=== PATIENT | male | born 1940 | race Caucasian/White ===

== ENCOUNTER 2016-06-07 12:43 | Emergency (ER) | payer OTHER, MEDICARE ==
[~2016-06-07] VITALS: Ht 175.3 cm; Wt 105.0 kg
[~2016-06-07 12:43] MED LIST: ALBUAER INH; ATOR-24 PO; DOCU100C31 PO; FIBER PO; GABA-113 PO; INSPMPHMLG SQ; LACT10SO30 PO; TRAM-10 PO
[2016-06-07 12:53] VITALS: TEMP 37.2; Ht 175.3 cm; Wt 105.0 kg
[2016-06-07] MEDS ORDERED: METR-163 PO (13:24)
[2016-06-07] MEDS ORDERED: SODIUM CHLORIDE 0.9% 1000ML 1,000 ML IV STA (14:06)
[2016-06-07 14:13] LABS: HEMATOCRIT 34.3 % (42-52); MEAN CELL VOLUME 89.1 fL (80-100); MEAN CORPUSCULAR HEMOGLOBIN 30.9 pg (25-34); MEAN CORPUSCULAR HGB CONC 34.7 g/dl (32-36); RED BLOOD COUNT 3.85 M/uL (4.7-6.1); WHITE BLOOD COUNT 7.35 K/uL (4.8-10.8)
[2016-06-07 14:24] LABS: BUN/CREATININE RATIO 18.2 (10-20); CALCIUM 9.3 mg/dl (8.5-10.1); CREATININE 1.3 mg/dl (0.60-1.40); POTASSIUM 3.9 mmol/L (3.5-5.1)
[2016-06-07 14:54] LABS: URINE APPEARANCE CLEAR (CLEAR); URINE COLOR DK YELLOW; URINE NITRITE NEG (NEG); UROBILINOGEN NEG (NEG)
[2016-06-07 15:25] LABS: MEAN PLATELET VOLUME 10.6 fL (7.4-10.4); PLATELET COUNT 95 K/uL (130-400)
[2016-06-07 15:29] LABS: BASO % 0.7 %; BASO ABS # 0.05 K/uL (0-0.2); COMPLETE YES; EOS % 8.3 %; IG% 0.1 %; LYMPH % 16.6 %; LYMPH ABS # 1.22 K/uL (1.2-3.4); MONO % 11.6 %; NEUT % 62.7 %; PLT ESTIMATE DECREASED
[2016-06-07 15:30] LABS: MANUAL MICROSCOPIC REQUIRED? YES; REVIEW REQ? NO; URINE BILIRUBIN NEG (NEG)
[2016-06-07 15:31] LABS: URINE BACTERIA 1+ (NEG); URINE MUCUS PRESENT (NONE PRSENT); URINE RBC 0-4 /hpf (0-4)
[2016-06-07 15:32] LABS: ZZURINE CULT IF INDIC CATH YES
--- NOTE | 2016-06-07 16:52 | EMERGENCY ROOM VISIT NOTE ---
History Report prepared by Mary: Eileen Wynne Under the Supervision of: Dr. Aime Sullivan D.O. First contact with patient: 13:47 Chief Complaint: URINARY SYMPTOMS Stated Complaint: UNABLE TO VOID, DIARRHEA Nursing Triage Summary: Pt has diverticulitis and CDiff. Currently on flagyl, started last night. States he has not peed since yesterday. Feels pressure and bloating. History of Present Illness The patient is a 75 year old male who presents to the Emergency Room with complaints of persistent diarrhea that began this past Monday. He currently rates his discomfort as a 7/10 in severity and states that he goes between 10- 11 times per day. Per the patient's family, the patient had hernia surgery in [place] in March. She states that the patient then developed c-diff and was placed on antibiotics. The patient's family notes that the patient's diarrhea improved and was feeling better last week. The patient states that Monday his diarrhea returned. He states that he saw his PCP and was sent to [facility] for a stool sample. The patient states that he was called and informed that he had developed c-diff again. He states that he was placed on Flagyl for his c-diff. The patient states that two weeks ago was the last time he finished his last antibiotic course. He additionally notes that he has been having difficulty urinating. The patient states that he drank 3 24 ounce bottles of water yesterday and has not urinated. He additionally notes a 10 pound weight loss this past week. The patient additionally notes lower abdominal pain. He notes a history of a partial colectomy. Source of History: patient, family Onset: past Monday Position: other (global) Symptom Intensity: 7/10 Quality: other (diarrhea) Timing: other (persistent) Associated Symptoms: + abdominal pain Note: Associated Symptoms: 10 pound weight loss, difficulty urinating. Review of Systems See HPI for pertinent positives & negatives. A total of 10 systems reviewed and were otherwise negative. Past Medical & Surgical Medical Problems: (1) Asthma (2) Calcaneal spur (3) Carpal tunnel syndrome (4) COPD (chronic obstructive pulmonary disease) (5) CVA (cerebral vascular accident) (6) Gout (7) Hypertension (8) Liver disease (9) Right ureteral calculus Family History Cancer FHx: hemochromatosis Heart disease Hypertension Social History Smoking Status: Former Smoker Alcohol Use: none Drug Use: none Marital Status: Housing Status: lives alone Occupation Status: retired Current/Historical Medications Scheduled Albuterol (Ventolin Hfa), 2 PUFFS INH QID Allopurinol (Allopurinol), 300 MG PO QAM Aspirin (Aspirin Chewable), 81 MG PO QAM Atorvastatin (Lipitor), 40 MG PO DAILY Budesonide (Pulmicort Respules 0.5MG/2ML), 2 ML INH BID Carvedilol (Carvedilol), 6.25 MG PO BID Cinnamon (Cinnamon), 500 MG PO DAILY Fiber Laxative (Fiber Laxative), 1 TAB PO QAM Formoterol Fumarate (Perforomist), 2 ML INH PRN UD Gabapentin (Neurontin), 300 MG PO QPM Insulin Glargine (Toujeo Solostar), 1 DOSE INJ UD Insulin Human Lispro (Humalog), SQ ACHS Insulin Human Lispro (Humalog), 10 UNITS SQ QPM Levothyroxine Sodium (Synthroid), 50 MCG PO QAM Magnesium Oxide (Mag-Ox), 400 MG PO QAM Metronidazole (Flagyl), 500 MG PO TID Nitroglycerin (Nitrostat), 0.4 MG UT PRN Pantoprazole Sodium (Protonix), 40 MG PO DAILY Paroxetine (Paroxetine HCl), 10 MG PO QAM Tamsulosin Hcl (Flomax), 0.4 MG PO QAM Scheduled PRN Docusate Sodium (Docusate Sodium), 100 MG PO BID PRN for Constipation Ipratropium-Albuterol (Combivent Respimat), 1 PUFFS INH QID PRN for Shortness of Breath Lactulose (Encephalopathy) (Lactulose), 30 ML PO BID PRN for Constipation Tramadol (Ultram), 50 MG PO Q8H PRN for Pain Allergies Coded Allergies: Oxycodone (Verified Allergy, Mild, SHORTNESS OF BREATH, 06/07/16) wheezing ??? Dobutamine (Verified Allergy, Unknown, abd pain, 06/07/16) Iodinated Diagnostic Agents (Verified Allergy, Unknown, HIVES, 06/07/16) Meperidine (Verified Allergy, Unknown, ANAPHYLAXIS, 06/07/16) Perflutren (Verified Allergy, Unknown, abd pain, 06/07/16) Propylene Glycol (Verified Allergy, Unknown, abd pain, 06/07/16) Physical Exam Vital Signs Date Time Temp Pulse Resp B/P Pulse Ox O2 Delivery O2 Flow Rate FiO2 06/07/16 17:13 63 18 135/75 97 Room Air 06/07/16 14:46 63 20 131/78 97 Room Air 06/07/16 12:53 37.2 62 18 111/71 96 Room Air Physical Exam CONSTITUTIONAL/VITAL SIGNS: Reviewed / noted above. GENERAL: Non-toxic in appearance. INTEGUMENTARY: Warm, dry, and [place]. HEAD: Normocephalic. EYES: without scleral icterus or trauma. ENT/OROPHARYNX: clear and moist. LYMPHADENOPATHY/NECK: Is supple without lymphadenopathy or meningismus. RESPIRATORY: Lungs clear and equal. CARDIOVASCULAR: Regular rate and rhythm. GI/ABDOMEN: Soft and nontender. No organomegaly or pulsatile mass. No rebound or guarding. Normal bowel sounds. EXTREMITIES: Warm and well perfused. BACK: No CVA tenderness. NEUROLOGICAL: Intact without focal deficits. PSYCHIATRIC: normal affect. MUSCULOSKELETAL: Normally developed with good muscle tone. Medical Decision & Procedures Laboratory Results 06/07/16 13:53 Red Blood Count 3.85, Mean Corpuscular Volume 89.1, Mean Corpuscular Hemoglobin 30.9, Mean Corpuscular Hemoglobin Concent 34.7, Mean Platelet Volume 10.6, Neutrophils (%) (Auto) 62.7, Lymphocytes (%) (Auto) 16.6, Monocytes (%) (Auto) 11.6, Eosinophils (%) (Auto) 8.3, Basophils (%) (Auto) 0.7, Neutrophils # (Auto ) 4.61, Lymphocytes # (Auto) 1.22, Monocytes # (Auto) 0.85, Eosinophils # (Auto ) 0.61, Basophils # (Auto) 0.05 06/07/16 13:53 Test 06/07/16 13:45 06/07/16 13:53 Urine Color DK YELLOW Urine Appearance CLEAR (CLEAR) Urine pH 5.0 (4.5-7.5) Urine Specific [place] 1.020 (1.000-1.030) Urine Protein NEG (NEG) Urine Glucose (UA) NEG (NEG) Urine Ketones TRACE (NEG) Urine Occult Blood NEG (NEG) Urine Nitrite NEG (NEG) Urine Bilirubin NEG (NEG) Urine Urobilinogen NEG (NEG) Urine Leukocyte Esterase SMALL (NEG) Urine WBC (Auto) /hpf (0-5) Urine RBC (Auto) /hpf (0-4) Urine Hyaline Casts (Auto) /lpf (0-5) Urine Epithelial Cells (Auto) /lpf (0-5) Urine Bacteria (Auto) (NEG) Urine RBC 0-4 /hpf (0-4) Urine WBC 5-10 /hpf (0-5) Urine Epithelial Cells 0-5 /lpf (0-5) Urine Bacteria 1+ (NEG) Urine Hyaline Casts 1-5 /lpf (0-5) Urine Mucus PRESENT (NONE PRSENT) White Blood Count 7.35 K/uL (4.8-10.8) Red Blood Count 3.85 M/uL (4.7-6.1) Hemoglobin 11.9 g/dL (14.0-18.0) Hematocrit 34.3 % (42-52) Mean Corpuscular Volume 89.1 fL (80-100) Mean Corpuscular Hemoglobin 30.9 pg (25-34) Mean Corpuscular Hemoglobin Concent 34.7 g/dl (32-36) Platelet Count 95 K/uL (130-400) Mean Platelet Volume 10.6 fL (7.4-10.4) Neutrophils (%) (Auto) 62.7 % Lymphocytes (%) (Auto) 16.6 % Monocytes (%) (Auto) 11.6 % Eosinophils (%) (Auto) 8.3 % Basophils (%) (Auto) 0.7 % Neutrophils # (Auto) 4.61 K/uL (1.4-6.5) Lymphocytes # (Auto) 1.22 K/uL (1.2-3.4) Monocytes # (Auto) 0.85 K/uL (0.11-0.59) Eosinophils # (Auto) 0.61 K/uL (0-0.5) Basophils # (Auto) 0.05 K/uL (0-0.2) RDW Standard Deviation 49.5 fL (36.4-46.3) RDW Coefficient of Variation 15.2 % (11.5-14.5) Immature Granulocyte % (Auto) 0.1 % Immature Granulocyte # (Auto) 0.01 K/uL (0.00-0.02) Platelet Estimate DECREASED Red Blood Cell Morphology Unremarkable Anion Gap 9.0 mmol/L (3-11) Est Creatinine Clear Calc Drug Dose 59.5 ml/min Estimated GFR () 62.3 Estimated GFR (Non- 53.8 BUN/Creatinine Ratio 18.2 (10-20) Calcium Level 9.3 mg/dl (8.5-10.1) Total Bilirubin 1.1 mg/dl (0.2-1) Aspartate Amino Transf (AST/SGOT) 16 U/L (15-37) Alanine Aminotransferase (ALT/SGPT) 19 U/L (12-78) Alkaline Phosphatase 57 U/L (45-117) Total Protein 6.7 gm/dl (6.4-8.2) Albumin 3.3 gm/dl (3.4-5.0) Globulin 3.4 gm/dl (2.5-4.0) Albumin/Globulin Ratio 1.0 (0.9-2) Lipase 103 U/L (73-393) Date/Time Source Procedure Growth Status 06/07/16 15:20 Stool C.difficile Toxin B Gene (PCR) - Final Positive for C. difficile toxin B gene Complete Laboratory results as stated above per my review. Medications Administered Medications (Trade) Dose Ordered Sig/Ronna Route Start Time Stop Time Status Last Admin Dose Admin Sodium Chloride (Nss 1000ml) 1,000 ml @ 999 mls/hr Q1H1M STAT IV 06/07/16 14:06 06/07/16 15:06 DC 06/07/16 14:45 999 MLS/HR ED Course 1401: Previous medical records were reviewed. The patient was evaluated in room B6. A complete history and physical examination was performed. 1406: Ordered Sodium Chloride 1000 ml @ 999 mls/hr IV. 1652: I reevaluated the patient and he is resting comfortably. I discussed the exam findings with him and I discussed the treatment plan. He verbalized complete understanding and agreement. He is ready to go home. Medical Decision Differential includes acute coronary syndrome, myocardial infarction, CVA, TIA, anemia, infection, pneumonia, UTI, pyelonephritis, poor nutrition, dehydration, electrolyte disturbance,hypoglycemia. This is a 75-year-old male who presents to the ED with a chief complaint of decreased urine output. The patient reports history of C. difficile that was treated and improved but over the past week he has been having increasing diarrhea. His president [place] put him on Flagyl yesterday. The patient reported some decreased urine output today and came to the ED for hydration. His vital signs here were normal. His exam did not reveal any abdominal tenderness. CBC is unremarkable. The BUN is 24. Urine revealed trace ketones. The patient was hydrated with IV fluids. The patient was told the results of the tests. He was felt to be stable for discharge. He will continue his Flagyl. Impression Primary Impression: Dehydration Additional Impression: C. difficile diarrhea Scribe Attestation The scribe's documentation has been prepared under my direction and personally reviewed by me in its entirety. I confirm that the note above accurately reflects all work, treatment, procedures, and medical decision making performed by me. Departure Information Dispostion Home / Self-Care Referrals Domo Alanis D.O. (PCP) Forms HOME CARE DOCUMENTATION FORM, IMPORTANT VISIT INFORMATION Patient Instructions My [facility] Additional Instructions Continue your Flagyl. Follow-up with your doctor for further care and evaluation in 1-2 days. Return to the emergency department for worsening or new symptoms or any concerns. You have been examined and treated today on an emergency basis only. This is not a substitute for, or an effort to provide, complete comprehensive medical care. It is impossible to recognize and treat all injuries or illnesses in a single emergency department visit. It is therefore important that you follow up closely with your doctor. Call as soon as possible for an appointment. Problem Qualifiers
[2016-06-07 17:13] VITALS: BP 135/75; PULSE 63; O2SAT 97
--- NOTE | 2016-06-09 17:28 | Pharmacy Progress Note ---
ED Pharmacist Culture FollowUp Date of Service: Jun 09, 2016. Called patient regarding urine culture. Patient notes that he is still experiencing some urinary hesitancy / inability to easily establish flow. Prescription for Bactrim DS 1 tab po BID x7 days called to [facility] at the patient's request. Counseled to discuss length of therapy with his outpatient provider 2nd ?prostatitis. Patient noted he has an appointment on Monday. Case discussed with Dr. Winters, who is the prescribing provider.
[2016-06-27] MEDS ORDERED: CINN1CAP2 PO (08:44)
[2016-06-27] MEDS ORDERED: INSU1.2I INJ (13:06)
[2016-06-27] MEDS ORDERED: MAGN400T6 PO (13:06)
[2016-06-27] MEDS ORDERED: PRVHFAIN INH (13:24)
[2016-06-27] MEDS ORDERED: TRAM-10 PO (13:24)
[2016-06-27] MEDS ORDERED: LEVO50TA PO (13:30)
[2016-06-27] MEDS ORDERED: ASPCH81X PO (13:30)
[2016-06-27] MEDS ORDERED: IPRA1AER2 INH (13:30)
[2016-06-27] MEDS ORDERED: ALL300 PO (13:30)
[2016-09-06] MEDS ORDERED: ATOR-24 PO (23:01)
[2016-09-06] MEDS ORDERED: MECL1TAB42 PO (23:01)
[2016-12-26] MEDS ORDERED: ASPI81TA28 PO (09:31)
[2016-12-26] MEDS ORDERED: VITAMIN B12 INJ (09:31)
[2016-12-26] MEDS ORDERED: LACT10SO17 PO (09:31)
[2016-12-26] MEDS ORDERED: CARV3.12 PO (09:31)
[2016-12-26] MEDS ORDERED: THIA100T46 PO (09:35)
[2016-12-26] MEDS ORDERED: CALC625T13 PO (09:36)
[2016-12-26] MEDS ORDERED: CHOL1CAP57 PO (09:37)
[2017-01-09] MEDS ORDERED: HYDR-3419 PO (09:54)
[2017-01-09] MEDS ORDERED: PHEN-775 PO (09:54)
[2017-01-09] MEDS ORDERED: CIPR-255 PO (09:54)
== END 2016-06-07 17:16 | disposition home or self-care (01) ==
LOC: C.EDB 12:44
DX: E86.0 Dehydration (principal); A04.7 Enterocolitis due to Clostridium difficile; J44.9 Chronic obstructive pulmonary disease, unspecified; M10.9 Gout, unspecified; I10 Essential (primary) hypertension; Z88.5 Allergy status to narcotic agent; Z91.041 Radiographic dye allergy status; Z86.73 Personal history of transient ischemic attack (TIA), and cerebral infarction without residual deficits; Z87.891 Personal history of nicotine dependence; Z79.82 Long term (current) use of aspirin; Z90.49 Acquired absence of other specified parts of digestive tract; Z82.49 Family history of ischemic heart disease and other diseases of the circulatory system

== ENCOUNTER 2016-06-27 13:47 | Inpatient (IN) | payer OTHER, MEDICARE ==
[~2016-06-27] VITALS: Ht 175.3 cm; Wt 104.3 kg
[~2016-06-27 13:47] MED LIST changes: -ALBUAER INH; +ALL300 PO; +ASPCH81X PO; +CINN1CAP2 PO; +INSU1.2I INJ; +IPRA1AER2 INH; +LEVO50TA PO; +MAGN400T6 PO; +METR-163 PO; +PRVHFAIN INH
[2016-06-27] MEDS ORDERED: SODIUM CHLORIDE 0.9% 1000ML 1,000 ML IV STA (14:20)
--- NOTE | 2016-06-27 14:20 | EMERGENCY ROOM VISIT NOTE ---
History Report prepared by Mary: Floyd Kaminski Under the Supervision of: Dr. Aime Victoria M.D. First contact with patient: 14:01 Chief Complaint: ABDOMINAL PAIN Stated Complaint: PAIN IN RIGHT SIDE AND STOMACH Nursing Triage Summary: having lower abdominal pain and diarrhea for the past 5 days History of Present Illness The patient is a 75 year old male with a history of C. Diff. who presents to the Emergency Room with complaints of persistent diarrhea for the past five days. The patient's stools have contained blood. The patient has also been experiencing persistent abdominal pain for the past five days. The patient has been experiencing recurrent C. Diff. infection approximately every three weeks since April. The patient was diagnosed with C. Diff. in the ED twice, once in April and once in May. The patient was on Bactrim and Flagyl approximately three weeks ago, which he finished. The patient has also been treated with Vancomycin, as per his son. The patient was treated with Augmentin prior to his first C. Diff. diagnosis. The patient follows up with Dr. Bartlett [facility] [employer] Director. The patient has not been taking probiotics. He has a history of diverticulitis. The patient takes baby aspirin daily, but is not on any other blood thinners. Source of History: patient, family (son) Onset: five days Position: other (GI) Quality: other (diarrhea) Timing: other (persistent) Associated Symptoms: + abdominal pain, + hematochezia Review of Systems See HPI for pertinent positives & negatives. A total of 10 systems reviewed and were otherwise negative. Past Medical & Surgical Medical Problems: (1) Asthma (2) Calcaneal spur (3) Carpal tunnel syndrome (4) Clostridium difficile diarrhea (5) COPD (chronic obstructive pulmonary disease) (6) CVA (cerebral vascular accident) (7) Gout (8) Hypertension (9) Liver disease (10) Right ureteral calculus Family History Cancer FHx: hemochromatosis Heart disease Hypertension Social History Smoking Status: Never Smoker Alcohol Use: none Drug Use: none Marital Status: Housing Status: lives alone Occupation Status: retired Current/Historical Medications Scheduled Albuterol (Ventolin Hfa), 2 PUFFS INH QID Allopurinol (Allopurinol), 300 MG PO QAM Aspirin (Aspirin Chewable), 81 MG PO QAM Budesonide (Pulmicort Respules 0.5MG/2ML), 2 ML INH BID Carvedilol (Carvedilol), 6.25 MG PO BID Cinnamon (Cinnamon), 500 MG PO DAILY Formoterol Fumarate (Perforomist), 2 ML INH PRN UD Gabapentin (Neurontin), 300 MG PO HS Insulin Glargine (Toujeo Solostar), 45 UNITS INJ HS Levothyroxine Sodium (Synthroid), 50 MCG PO QAM Magnesium Oxide (Mag-Ox), 400 MG PO QAM Nitroglycerin (Nitrostat), 0.4 MG UT PRN Oxybutynin Chloride (Ditropan), 5 MG PO TID Pantoprazole Sodium (Protonix), 40 MG PO DAILY Paroxetine (Paroxetine HCl), 10 MG PO QAM Phenazopyridine HCl (Pyridium), 200 MG PO UD Pravastatin Sod (Pravastatin Sodium), 10 MG PO HS Tamsulosin Hcl (Flomax), 0.4 MG PO QAM Scheduled PRN Ipratropium-Albuterol (Combivent Respimat), 1 PUFFS INH QID PRN for Shortness of Breath Lactulose (Encephalopathy) (Lactulose), 30 ML PO BID PRN for Constipation Tramadol (Ultram), 50 MG PO Q8H PRN for Pain Miscellaneous Medications Insulin Human Lispro (Humalog), UNITS SQ Allergies Coded Allergies: Oxycodone (Verified Allergy, Mild, SHORTNESS OF BREATH, 06/27/16) wheezing ??? Dobutamine (Verified Allergy, Unknown, abd pain, 06/27/16) Iodinated Diagnostic Agents (Verified Allergy, Unknown, HIVES, 06/27/16) Meperidine (Verified Allergy, Unknown, ANAPHYLAXIS, 06/27/16) Perflutren (Verified Allergy, Unknown, abd pain, 06/27/16) Propylene Glycol (Verified Allergy, Unknown, abd pain, 06/27/16) Physical Exam Vital Signs Date Time Temp Pulse Resp B/P Pulse Ox O2 Delivery O2 Flow Rate FiO2 06/27/16 18:10 65 18 138/78 97 Room Air 06/27/16 16:11 63 18 141/81 99 Room Air 06/27/16 15:33 55 06/27/16 15:20 58 16 115/68 98 Room Air 06/27/16 13:50 36.7 63 18 127/73 97 Room Air Physical Exam GENERAL: Patient is a healthy-appearing well-nourished HEAD: Normocephalic atraumatic EYES: Ocular movements intact pupils equal and react to light OROPHARYNX mucous membranes are moist no exudates present no erythema or edema present NECK: Supple no nuchal rigidity CHEST: Good equal expansion LUNGS: Clear and equal to auscultation CARDIAC: Normal S1 and S2 ABDOMEN: Soft, no guarding, tender in the right lower quadrant. BACK: No CVA tenderness EXTREMITIES: No pain upon palpation normal muscle strength in all groups no clubbing cyanosis or edema NEURO: Patient is following commands is answering questions appropriately. Alert and oriented x3 Cranial Nerves 2-12 grossly intact Medical Decision & Procedures ER Provider Diagnostic Interpretation: CT results as stated below per my review and radiologist interpretation: CT SCAN OF THE ABDOMEN AND PELVIS WITHOUT IV CONTRAST CLINICAL HISTORY: Right lower quadrant abdominal pain. COMPARISON STUDY: Abdominal CT dated 04/27/2016. TECHNIQUE: CT scan of the abdomen and pelvis is performed from the lung bases to the proximal femora. Images are reviewed in the axial, sagittal, and coronal planes. IV contrast was not administered for this examination as per the referring clinician. Note that the examination was performed in suboptimal fashion without oral and IV contrast. Automated dose control exposure was utilized. CT DOSE: 1103.58 mGycm FINDINGS: Lung bases: The heart is enlarged and without pericardial effusion. The coronary arteries an aortic valve leaflets are densely calcified. A small hiatal hernia is noted. Emphysema is suspected. No airspace consolidation or pleural effusion is seen. Dependent atelectasis is noted. Liver: The unenhanced liver is cirrhotic in morphology and heterogeneous in attenuation. There is nodularity of the surface contour, hypertrophy of the left lobe and caudate, and widening of the fissures. There is mild intrahepatic biliary ductal dilatation, likely on a postoperative basis. Gallbladder: Surgically absent noting clips in the gallbladder fossa. Spleen: The spleen is enlarged, measuring there is recanalization of the periumbilical vein. 16.5 Cm in length. Pancreas: The unenhanced pancreas is mildly atrophic and grossly unremarkable. Adrenal glands: Unremarkable. Kidneys: The unenhanced kidneys demonstrate mild cortical atrophy and are without hydronephrosis. There is a punctate nonobstructing left calculus. There is no evidence of contour deforming renal mass lesion. A circumaortic left renal vein is incidentally noted. Abdominal vasculature: There is ectasia and advanced atherosclerotic calcification of the abdominal aorta. Bowel: There are postoperative changes from sigmoid colon resection with colocolonic anastomosis. There is moderate diverticulosis of the remaining colon without CT evidence of acute diverticulitis. There is a long segment of wall thickening with mild pericolonic inflammation seen involving the left colon. This extends from the distal transverse colon to the rectum. The appearance is consistent with a nonspecific colitis. The appendix is well-visualized and normal. Peritoneum: There is no intraperitoneal free air or abdominal ascites. Omental collateral vessels are noted in the left lower quadrant. There is evidence of previous ventral hernia repair. Lymphadenopathy: None. Pelvic viscera: The prostate gland is enlarged and heterogeneous, measuring up to 6.2 cm in transverse diameter. The bladder wall appears thickened and trabeculated, likely related to chronic outlet obstruction. There are small bilateral fat-containing inguinal hernias, left larger than right. Skeletal structures: The skeletal structures are osteopenic. No lytic or blastic lesions are seen. Mild to moderate lumbosacral spondylosis is observed. Degenerative changes are seen involving the sacroiliac joints. IMPRESSION: 1. Suboptimal examination without oral and IV contrast. 2. Findings are consistent with a nonspecific colitis involving the left colon as detailed above, likely on an infectious or inflammatory basis. 3. Cirrhotic liver morphology. 4. Splenomegaly and omental collateral vessels indicate portal hypertension. 5. There are postoperative changes from sigmoid colon resection with colocolonic anastomosis. No bowel obstruction is seen. There is moderate diverticulosis of the remaining colon without CT evidence of acute diverticulitis. 6. Cardiomegaly and suspect emphysema. 7. There is a punctate nonobstructing left renal calculus. 8. Prostatomegaly with evidence of chronic bladder outlet obstruction. 9. Additional changes as detailed above. Electronically signed by: Derrek Silva M.D. 06/27/2016 3:30 PM Dictated Date/Time: 06/27/2016 3:21 PM Laboratory Results 06/27/16 14:50 Red Blood Count 3.75, Mean Corpuscular Volume 88.8, Mean Corpuscular Hemoglobin 30.4, Mean Corpuscular Hemoglobin Concent 34.2, Mean Platelet Volume 9.3, Neutrophils (%) (Auto) 56.3, Lymphocytes (%) (Auto) 26.9, Monocytes (%) (Auto) 11.2, Eosinophils (%) (Auto) 4.7, Basophils (%) (Auto) 0.5, Neutrophils # (Auto ) 3.11, Lymphocytes # (Auto) 1.49, Monocytes # (Auto) 0.62, Eosinophils # (Auto ) 0.26, Basophils # (Auto) 0.03 06/27/16 14:50 Test 06/27/16 14:09 06/27/16 14:50 Urine Color YELLOW Urine Appearance CLEAR (CLEAR) Urine pH 5.0 (4.5-7.5) Urine Specific [place] 1.016 (1.000-1.030) Urine Protein NEG (NEG) Urine Glucose (UA) NEG (NEG) Urine Ketones NEG (NEG) Urine Occult Blood NEG (NEG) Urine Nitrite NEG (NEG) Urine Bilirubin NEG (NEG) Urine Urobilinogen NEG (NEG) Urine Leukocyte Esterase SMALL (NEG) Urine WBC (Auto) 1-5 /hpf (0-5) Urine RBC (Auto) 0-4 /hpf (0-4) Urine Hyaline Casts (Auto) 1-5 /lpf (0-5) Urine Epithelial Cells (Auto) 5-10 /lpf (0-5) Urine Bacteria (Auto) NEG (NEG) White Blood Count 5.53 K/uL (4.8-10.8) Red Blood Count 3.75 M/uL (4.7-6.1) Hemoglobin 11.4 g/dL (14.0-18.0) Hematocrit 33.3 % (42-52) Mean Corpuscular Volume 88.8 fL (80-100) Mean Corpuscular Hemoglobin 30.4 pg (25-34) Mean Corpuscular Hemoglobin Concent 34.2 g/dl (32-36) Platelet Count 95 K/uL (130-400) Mean Platelet Volume 9.3 fL (7.4-10.4) Neutrophils (%) (Auto) 56.3 % Lymphocytes (%) (Auto) 26.9 % Monocytes (%) (Auto) 11.2 % Eosinophils (%) (Auto) 4.7 % Basophils (%) (Auto) 0.5 % Neutrophils # (Auto) 3.11 K/uL (1.4-6.5) Lymphocytes # (Auto) 1.49 K/uL (1.2-3.4) Monocytes # (Auto) 0.62 K/uL (0.11-0.59) Eosinophils # (Auto) 0.26 K/uL (0-0.5) Basophils # (Auto) 0.03 K/uL (0-0.2) RDW Standard Deviation 49.5 fL (36.4-46.3) RDW Coefficient of Variation 15.3 % (11.5-14.5) Immature Granulocyte % (Auto) 0.4 % Immature Granulocyte # (Auto) 0.02 K/uL (0.00-0.02) Anion Gap 10.0 mmol/L (3-11) Est Creatinine Clear Calc Drug Dose 64.7 ml/min Estimated GFR () 68.6 Estimated GFR (Non- 59.2 BUN/Creatinine Ratio 21.8 (10-20) Calcium Level 9.5 mg/dl (8.5-10.1) Total Bilirubin 0.7 mg/dl (0.2-1) Direct Bilirubin 0.3 mg/dl (0-0.2) Aspartate Amino Transf (AST/SGOT) 20 U/L (15-37) Alanine Aminotransferase (ALT/SGPT) 22 U/L (12-78) Alkaline Phosphatase 57 U/L (45-117) Total Protein 6.3 gm/dl (6.4-8.2) Albumin 2.8 gm/dl (3.4-5.0) Lipase 145 U/L (73-393) Date/Time Source Procedure Growth Status 06/27/16 14:09 Stool C.difficile Toxin B Gene (PCR) - Final Positive for C. difficile toxin B gene Complete Labs reviewed by ED physician. Medications Administered Medications (Trade) Dose Ordered Sig/Ronna Route Start Time Stop Time Status Last Admin Dose Admin Sodium Chloride (Nss 1000ml) 1,000 ml @ 999 mls/hr Q1H1M STAT IV 06/27/16 14:20 06/27/16 15:20 DC 06/27/16 14:55 999 MLS/HR Vancomycin HCl (Vancomycin Oral Soln) 125 mg NOW STAT PO 06/27/16 15:47 06/27/16 15:51 DC 06/27/16 16:16 125 MG Raspberry (Raspberry Syrup 5ml Cup) 5 ml TODAY@1615 PO 06/27/16 16:15 06/27/16 18:00 DC 06/27/16 16:16 5 ML ED Course 1410: Past medical records reviewed. The patient was evaluated in room B5. A complete history and physical examination was performed. 1420: NSS 1000 ml @ 999 mls/hr. 1541: Checked on the patient. 1547: Vancomycin 125 mg PO. 1553: Discussed the case with Dr. Mcdermott [facility]. The patient will be evaluated. 1615: Raspberry 5 ml PO. Medical Decision Differential diagnosis: Etiologies such as appendicitis, diverticulitis, PUD, biliary pathology, UTI, pancreatitis, obstruction, mesenteric ischemia, aortic pathology, infections, inflammatory bowel disease, renal colic, as well as others were entertained. This is a 75-year-old male who presents to the emergency department complaining of abdominal pain as well as recurrent C. difficile infection. The patient is positive for C. difficile and has been on Flagyl. He is having multiple bowel movements approximately 5/h. An IV was established, patient given normal saline bolus. I did start the patient on oral vancomycin. I did discuss the case with the hospitalist service who agreed to admit the patient. Patient was in agreement with the treatment plan. Consults Time Called: 1549 Consulting Physician: Dr. Mcdermott [facility] Returned Call: [phone]: Discussed the case with Dr. Mcdermott, [facility]. The patient will be evaluated. Impression Primary Impression: C. difficile colitis Scribe Attestation The scribe's documentation has been prepared under my direction and personally reviewed by me in its entirety. I confirm that the note above accurately reflects all work, treatment, procedures, and medical decision making performed by me. Departure Information Dispostion Being Evaluated By Hospitalist Referrals Domo Alanis D.O. (PCP) Patient Instructions My [facility]
[2016-06-27 14:25] LABS: URINE APPEARANCE CLEAR (CLEAR); URINE BILIRUBIN NEG (NEG); URINE COLOR YELLOW; URINE NITRITE NEG (NEG); URINE SPECIFIC GRAVITY 1.016 (1.000-1.030); UROBILINOGEN NEG (NEG); ZZUR CULT IF INDIC CLEAN CATCH NO
[2016-06-27 14:29] LABS: MANUAL MICROSCOPIC REQUIRED? NO; REVIEW REQ? NO
[2016-06-27] MEDS ORDERED: OXYB5TAB74 PO (14:44)
[2016-06-27] MEDS ORDERED: PRVC10 PO (14:44)
[2016-06-27] MEDS ORDERED: GABA-113 PO (14:44)
[2016-06-27] MEDS ORDERED: PHEN-876 PO (14:44)
[2016-06-27] MEDS ORDERED: NTRGSL/4 UT (14:47)
[2016-06-27 15:10] LABS: HEMATOCRIT 33.3 % (42-52); MEAN CELL VOLUME 88.8 fL (80-100); MEAN CORPUSCULAR HEMOGLOBIN 30.4 pg (25-34); MEAN CORPUSCULAR HGB CONC 34.2 g/dl (32-36); RED BLOOD COUNT 3.75 M/uL (4.7-6.1); WHITE BLOOD COUNT 5.53 K/uL (4.8-10.8)
[2016-06-27 15:14] LABS: BASO % 0.5 %; BASO ABS # 0.03 K/uL (0-0.2); COMPLETE YES; EOS % 4.7 %; IG% 0.4 %; LYMPH % 26.9 %; LYMPH ABS # 1.49 K/uL (1.2-3.4); MEAN PLATELET VOLUME 9.3 fL (7.4-10.4); MONO % 11.2 %; NEUT % 56.3 %; PLATELET COUNT 95 K/uL (130-400)
[2016-06-27 15:22] LABS: BUN/CREATININE RATIO 21.8 (10-20); CALCIUM 9.5 mg/dl (8.5-10.1); CREATININE 1.2 mg/dl (0.60-1.40); POTASSIUM 3.9 mmol/L (3.5-5.1)
[2016-06-27] MEDS ORDERED: PXL/10 PO (15:24)
[2016-06-27] MEDS ORDERED: PANT40TA PO (15:24)
--- NOTE | 2016-06-27 15:32 | DIAGNOSTIC IMAGING REPORT ---
CT SCAN OF THE ABDOMEN AND PELVIS WITHOUT IV CONTRAST CLINICAL HISTORY: Right lower quadrant abdominal pain. COMPARISON STUDY: Abdominal CT dated 04/27/2016. TECHNIQUE: CT scan of the abdomen and pelvis is performed from the lung bases to the proximal femora. Images are reviewed in the axial, sagittal, and coronal planes. IV contrast was not administered for this examination as per the referring clinician. Note that the examination was performed in suboptimal fashion without oral and IV contrast. Automated dose control exposure was utilized. CT DOSE: 1103.58 mGycm FINDINGS: Lung bases: The heart is enlarged and without pericardial effusion. The coronary arteries an aortic valve leaflets are densely calcified. A small hiatal hernia is noted. Emphysema is suspected. No airspace consolidation or pleural effusion is seen. Dependent atelectasis is noted. Liver: The unenhanced liver is cirrhotic in morphology and heterogeneous in attenuation. There is nodularity of the surface contour, hypertrophy of the left lobe and caudate, and widening of the fissures. There is mild intrahepatic biliary ductal dilatation, likely on a postoperative basis. Gallbladder: Surgically absent noting clips in the gallbladder fossa. Spleen: The spleen is enlarged, measuring there is recanalization of the periumbilical vein. 16.5 Cm in length. Pancreas: The unenhanced pancreas is mildly atrophic and grossly unremarkable. Adrenal glands: Unremarkable. Kidneys: The unenhanced kidneys demonstrate mild cortical atrophy and are without hydronephrosis. There is a punctate nonobstructing left calculus. There is no evidence of contour deforming renal mass lesion. A circumaortic left renal vein is incidentally noted. Abdominal vasculature: There is ectasia and advanced atherosclerotic calcification of the abdominal aorta. Bowel: There are postoperative changes from sigmoid colon resection with colocolonic anastomosis. There is moderate diverticulosis of the remaining colon without CT evidence of acute diverticulitis. There is a long segment of wall thickening with mild pericolonic inflammation seen involving the left colon. This extends from the distal transverse colon to the rectum. The appearance is consistent with a nonspecific colitis. The appendix is well-visualized and normal. Peritoneum: There is no intraperitoneal free air or abdominal ascites. Omental collateral vessels are noted in the left lower quadrant. There is evidence of previous ventral hernia repair. Lymphadenopathy: None. Pelvic viscera: The prostate gland is enlarged and heterogeneous, measuring up to 6.2 cm in transverse diameter. The bladder wall appears thickened and trabeculated, likely related to chronic outlet obstruction. There are small bilateral fat-containing inguinal hernias, left larger than right. Skeletal structures: The skeletal structures are osteopenic. No lytic or blastic lesions are seen. Mild to moderate lumbosacral spondylosis is observed. Degenerative changes are seen involving the sacroiliac joints. IMPRESSION: 1. Suboptimal examination without oral and IV contrast. 2. Findings are consistent with a nonspecific colitis involving the left colon as detailed above, likely on an infectious or inflammatory basis. 3. Cirrhotic liver morphology. 4. Splenomegaly and omental collateral vessels indicate portal hypertension. 5. There are postoperative changes from sigmoid colon resection with colocolonic anastomosis. No bowel obstruction is seen. There is moderate diverticulosis of the remaining colon without CT evidence of acute diverticulitis. 6. Cardiomegaly and suspect emphysema. 7. There is a punctate nonobstructing left renal calculus. 8. Prostatomegaly with evidence of chronic bladder outlet obstruction. 9. Additional changes as detailed above. Electronically signed by: Derrek Silva M.D. 06/27/2016 3:30 PM Dictated Date/Time: 06/27/2016 3:21 PM
[2016-06-27] MEDS ORDERED: VANCOMYCIN HCL 125 MG/2.5ML SOLN PO STA (15:47)
[2016-06-27] MEDS ORDERED: RASPBERRY SYRUP 5 ML UDP PO SCH (16:15)
[2016-06-27] MEDS ORDERED: CRG625 PO (16:23)
[2016-06-27] MEDS ORDERED: ACETAMINOPHEN 325 MG TAB PO PRN ×2 (16:30→16:45)
[2016-06-27] MEDS ORDERED: TRAMADOL HCL 50 MG TAB PO PRN (16:30)
[2016-06-27] MEDS ORDERED: ONDANSETRON INJ 2 MG/ML 2 ML VIAL IV PRN (16:30)
[2016-06-27] MEDS ORDERED: NITROGLYCERIN 0.4 MG SL PER TAB CHARGE UT PRN (16:30)
[2016-06-27] MEDS ORDERED: ALBUT/IPRATROP 3MG/0.5MG NEB 3 ML VIAL INH PRN (16:30)
[2016-06-27] MEDS ORDERED: MAGNESIUM HYDROXIDE SUSP 30 ML UDC PO PRN (16:30)
[2016-06-27] MEDS ORDERED: PLMINSR5 INH (16:37)
[2016-06-27] MEDS ORDERED: FORM1NEB INH (16:37)
[2016-06-27] MEDS ORDERED: DEXTROSE 50% 50 ML SYR IV PRN (17:00)
[2016-06-27] MEDS ORDERED: GLUCAGON FOR INJ 1 MG VIAL SQ PRN (17:00)
[2016-06-27] MEDS ORDERED: GLUCOSE 40% GEL 15 GM TUBE PO PRN (17:00)
[2016-06-27] MEDS ORDERED: GLUCOSE 10 TABS/TUBE PO PRN (17:00)
[2016-06-27] MEDS: ALBUTEROL HFA 8 GM INHALER INH SCH ×2 (17:00→23:42)
[2016-06-27] MEDS ORDERED: INSPMPHMLG SQ (17:25)
[2016-06-27] MEDS ORDERED: TAMS0.4C38 PO (18:27)
[2016-06-27] MEDS: INSULIN ASPART 100 UNITS/ML 3 ML PEN SC SCH (21:00)
--- NOTE | 2016-06-27 21:11 | HISTORY & PHYSICAL EXAMINATION ---
DATE OF ADMISSION: 06/27/2016 CHIEF COMPLAINT: Abdominal pain. HISTORY OF PRESENT ILLNESS: This is a 75-year-old male with history of C. diff, presents to Emergency Room complaining of persistent diarrhea for the past 5 days. The patient also noticed that there was blow mild amount of blood present in his stool. The patient also has experienced persistent abdominal pain in the last 5 days, mainly located in the right lower abdomen. The patient also has been experiencing recurrent C. diff infection approximately every 3 weeks since April. He was diagnosed with C. diff in the Emergency Room twice, once in April and once in May, and he was on different combinations of antibiotic, his last one Bactrim and Flagyl approximately 3 weeks ago when he finished. He was also treated with oral vancomycin as per his son. The patient also received Augmentin just before his first C. diff diagnosis. He also is followed by Dr. Bartlett from [facility]. The patient has not been taking probiotics. He has a history of diverticulitis. REVIEW OF SYSTEMS: Negative except as above. Ten out of 14 systems were reviewed. PAST MEDICAL HISTORY: Asthma, calcaneus spur, carpal tunnel syndrome, Clostridium difficile diarrhea, COPD, CVA, gout, hypertension, liver disease, right ureteral calculus. FAMILY HISTORY: Cancer, heart disease. SOCIAL HISTORY: Does not smoke, does not drink. CURRENT MEDICINES: Albuterol 2 puffs inhaled q.i.d., allopurinol 300 mg p.o. daily, aspirin 81 mg p.o. daily, budesonide 2 mL inhaled b.i.d., carvedilol 6.25 mg p.o. b.i.d., cinnamon 500 mg p.o. daily, formoterol 2 mL inhaled p.r.n., gabapentin 300 mg p.o. at bedtime, insulin glargine -- patient stopped taking, levothyroxine 50 mcg p.o. daily, magnesium oxide 400 mg p.o. daily, nitroglycerin 0.4 mg as needed, oxybutynin 5 mg p.o. t.i.d., pantoprazole 40 mg p.o. daily, paroxetine 10 mg p.o. daily, phenazopyridine 200 mg p.o. as needed, pravastatin 10 mg p.o. at bedtime, tamsulosin 0.4 mg p.o. daily, Combivent Respimat 1 puff inhaled q.i.d. p.r.n. shortness of breath, lactulose 30 mL p.o. b.i.d. p.r.n. constipation, tramadol 50 mg p.o. q. 8 hours p.r.n. pain. The patient also stopped taking Humalog 3 weeks ago. ALLERGIES: OXYCONTIN, DOBUTAMINE, IODINATED DIAGNOSTIC AGENT, MEPERIDINE, PERFLUTREN AND PROPYLENE GLYCOL. PHYSICAL EXAMINATION: VITAL SIGNS: Temperature 36.7, pulse 63, respirations 18, blood pressure 138/78, pulse ox 97 on room air. GENERAL: Healthy appearing, well nourished. HEENT: Normocephalic, atraumatic. CHEST: Lungs clear to auscultation bilateral. No wheezes, no rhonchi. HEART: S1, S2, RRR. ABDOMEN: Soft. No guarding. Tender in the right lower quadrant. Bowel sounds present bilateral. BACK: No CVA tenderness. EXTREMITIES: No clubbing, cyanosis, edema. NEUROLOGICAL: Alert, oriented x3. Motor and sensory normal. DIAGNOSTIC INTERPRETATION: CAT scan of abdomen and pelvis without IV contrast showed suboptimal examination without oral or IV contrast, nonspecific colitis, splenomegaly, omental collateral vessels indicate portal hypertension, postoperative changes, cardiomegaly and emphysema, punctate nonobstructing left renal calculus, prostatomegaly, chronic bladder outlet obstruction. LABORATORY DATA: White count of 5.5, hemoglobin of 11.4, platelets 95. Sodium 141, potassium 3.9, chloride 108, CO2 of 23, BUN of 26, creatinine 1.2, and glucose of 135. Urinalysis normal. Albumin of 2.8. Gap of 10. Total bilirubin 0.7, calcium 9.5, lipase 145. Stool positive for C. diff toxin B gene. ASSESSMENT AND PLAN: This is a 75-year-old male who presents with recurrent Clostridium difficile. 1. Recurrent Clostridium difficile. Start the patient on oral vancomycin and also provide with normal saline for rehydration. 2. History of type 2 diabetes. All his insulin has been stopped 3 weeks ago due to losing his weight and he did not take his Lantus or aspart. We will start the patient on sliding scale and we will check his blood sugars before meals. We will check A1c. 3. History of hypertension and cerebrovascular accident. We will continue outpatient home medicines, Coreg and aspirin. 4. History of chronic obstructive pulmonary disease. Continue albuterol inhalers as needed. 5. History of benign prostatic hypertrophy. Continue oxybutynin 5 mg p.o. t.i.d. and Flomax. 6. Deep venous thrombosis and gastrointestinal prophylaxis. 7. The patient is a full code. Time spent during this admission, 50 minutes. PATRICIA
[2016-06-27] MEDS: SODIUM CHLORIDE 0.9% 1000ML 1,000 ML IV SCH (21:14)
[2016-06-27] MEDS: VANCOMYCIN HCL 125 MG/2.5ML SOLN PO SCH (21:15)
[2016-06-27] MEDS: RASPBERRY SYRUP 5 ML UDP PO SCH (21:16)
[2016-06-27] MEDS: OXYBUTYNIN CHLORIDE 5 MG TAB PO SCH (21:17)
[2016-06-27] MEDS: GABAPENTIN 300 MG CAP PO SCH (21:17)
[2016-06-27] MEDS: CARVEDILOL 6.25 MG TAB PO SCH (21:17)
[2016-06-27] MEDS: PRAVASTATIN SOD 10 MG TAB PO SCH (21:17)
[2016-06-27] MEDS: HEPARIN SOD 5000 UNIT/0.5 ML CARP SQ SCH (21:22)
[2016-06-27] MEDS: BUDESONIDE 0.5 MG/2 ML VIAL (PULMICORT) INH SCH (21:33)
[2016-06-27 21:35] VITALS: BP 144/77; PULSE 55; TEMP 36.5; O2SAT 98; Ht 175.3 cm; Wt 104.3 kg
[2016-06-28] VITALS (7 sets, daily range): BP systolic 106–122; BP diastolic 53–76; PULSE 43–85; TEMP 36.2–36.7; O2SAT 95–99
[2016-06-28] MEDS: INSULIN ASPART 100 UNITS/ML 3 ML PEN SC SCH ×6 (04:00→20:56)
[2016-06-28] MEDS: SODIUM CHLORIDE 0.9% 1000ML 1,000 ML IV SCH ×2 (05:44→17:48)
[2016-06-28] MEDS: LEVOTHYROXINE 50 MCG TAB PO SCH (06:06)
[2016-06-28] MEDS: BUDESONIDE 0.5 MG/2 ML VIAL (PULMICORT) INH SCH ×2 (06:55→20:23)
[2016-06-28 08:19] LABS: HEMATOCRIT 32.8 % (42-52); MEAN CELL VOLUME 88.6 fL (80-100); MEAN CORPUSCULAR HGB CONC 33.8 g/dl (32-36); WHITE BLOOD COUNT 4.14 K/uL (4.8-10.8)
[2016-06-28 08:27] LABS: MEAN PLATELET VOLUME 9.3 fL (7.4-10.4); PLATELET COUNT 86 K/uL (130-400)
[2016-06-28 08:29] LABS: BUN/CREATININE RATIO 18.5 (10-20); CALCIUM 9.3 mg/dl (8.5-10.1); CREATININE 1.1 mg/dl (0.60-1.40); POTASSIUM 3.9 mmol/L (3.5-5.1)
--- NOTE | 2016-06-28 08:33 | Hospitalist Progress Note ---
Hospitalist Progress Note Date of Service Jun 28, 2016. (Jessica Nelson ., PA-C) Subjective Pt evaluation today including: conversation w/ patient, physical exam, chart review, lab review, review of studies, review of inpatient medication list Voiding: no voiding problems, no incontinence Patient states he is feeling well. On 06/26, patient had +7 BM. Per patient, he had one very loose BM last night, and 1 BM this morning that was loose, but more formed. Patient ate breakfast this morning, with mild discomfort in lower abdomen. +blood on tissue paper with BM. Patient states it is due to irritation from frequent BMs. +lightheadedness/dizziness when standing. Patient denies any fever, chills, sweats, vision changes, CP, palpitations, edema, SOB, wheezing, cough, nausea, vomiting, urinary symptoms, melena, numbness/tingling, weakness, muscle/joint pain, anxiety/depression, active bleeding, or new skin discoloration/changes. (Jessica Nelson ., PA-C) Medications Current Inpatient Medications Medications (Trade) Dose Ordered Sig/Ronna Route Start Time Stop Time Status Last Admin Dose Admin Vancomycin HCl (Vancomycin Oral Soln) 125 mg QID PO 06/27/16 21:00 07/11/16 20:59 06/28/16 09:44 125 MG Albuterol (Ventolin Hfa Inhaler) 2 puffs QID INH 06/27/16 17:00 07/27/16 16:59 06/28/16 09:36 2 PUFFS Allopurinol (Zyloprim Tab) 300 mg QAM PO 06/28/16 09:00 07/28/16 08:59 06/28/16 09:40 300 MG Aspirin (Ecotrin Tab) 81 mg QAM PO 06/28/16 09:00 07/28/16 08:59 06/28/16 09:37 81 MG Budesonide (Pulmicort Respules 0.5MG/ 2ML Neb Soln) 1 mg BIDR INH 06/27/16 20:00 07/27/16 19:59 06/28/16 06:55 1 MG Carvedilol (Coreg Tab) 6.25 mg BID PO 06/27/16 21:00 07/27/16 20:59 06/27/16 21:17 6.25 MG Gabapentin (Neurontin Cap) 300 mg HS PO 06/27/16 21:00 07/27/16 20:59 06/27/16 21:17 300 MG Levothyroxine Sodium (Synthroid Tab) 50 mcg DAILYBB PO 06/28/16 06:30 07/28/16 06:59 06/28/16 06:06 50 MCG Magnesium Oxide (Mag-Ox Tab) 400 mg QAM PO 06/28/16 09:00 07/28/16 08:59 06/28/16 09:39 400 MG Nitroglycerin (Nitrostat Tab) 0.4 mg UD PRN UT 06/27/16 16:30 07/27/16 16:29 Oxybutynin Chloride (Ditropan Tab) 5 mg TID PO 06/27/16 21:00 07/27/16 20:59 06/28/16 09:37 5 MG Pantoprazole Sodium (Protonix Tab) 40 mg DAILY PO 06/28/16 09:00 07/28/16 08:59 06/28/16 09:38 40 MG Miscellaneous Information (Order Awaiting Action) 1 ea QS N/A 06/28/16 00:00 07/28/16 00:00 Pravastatin Sodium (Pravachol Tab) 10 mg HS PO 06/27/16 21:00 07/27/16 20:59 06/27/16 21:17 10 MG Tamsulosin HCl (Flomax Cap) 0.4 mg QAM PO 06/28/16 09:00 07/28/16 08:59 06/28/16 09:39 0.4 MG Tramadol HCl (Ultram Tab) 50 mg Q8H PRN PO 06/27/16 16:30 07/27/16 16:29 Paroxetine HCl (pAXil TAB) 10 mg QAM PO 06/28/16 09:00 07/28/16 08:59 06/28/16 09:39 10 MG Albuterol/ Ipratropium 3 ml 3 ml Q4R PRN INH 06/27/16 16:30 07/27/16 16:29 Sodium Chloride (Nss 1000ml) 1,000 ml @ 75 mls/hr [id number] IV 06/27/16 16:30 07/27/16 16:29 06/28/16 05:44 75 MLS/HR Acetaminophen (Tylenol Tab) 650 mg Q4H PRN PO 06/27/16 16:30 07/27/16 16:29 Magnesium Hydroxide (Milk Of Magnesia Susp) 30 ml Q6H PRN PO 06/27/16 16:30 07/27/16 16:29 Ondansetron HCl (Zofran Inj) 4 mg Q6H PRN IV 06/27/16 16:30 07/27/16 16:29 Heparin Sodium (Porcine) (Heparin Sq 5000 Unit/0.5ml) 5,000 unit Q12 SQ 06/27/16 21:00 07/27/16 20:59 06/28/16 09:44 5,000 UNIT Insulin Aspart (novoLOG ASPART) SLIDING SCALE G... ACHS SC 06/27/16 21:00 07/27/16 20:59 06/28/16 09:34 5 UNITS Raspberry (Raspberry Syrup 5ml Cup) 5 ml QID PO 06/27/16 21:00 07/07/16 20:59 06/28/16 09:41 5 ML Glucose (Glucose 40% Gel) 15-30 GRAMS 15 GRAMS... UD PRN PO 06/27/16 17:00 07/27/16 16:59 Glucose (Glucose Chew Tab) 4-8 Tablets 4 Tabl... UD PRN PO 06/27/16 17:00 07/27/16 16:59 Dextrose (Dextrose 50% 50ML Syringe) 25-50ML OF 50% DW IV FOR... UD PRN IV 06/27/16 17:00 07/27/16 16:59 Glucagon (Glucagon Inj) 1 mg UD PRN SQ 06/27/16 17:00 07/27/16 16:59 (Jessica Nelson, CHUNG) Objective Vital Signs Date Time Temp Pulse Resp B/P Pulse Ox O2 Delivery O2 Flow Rate FiO2 06/28/16 06:56 85 18 95 Room Air 06/28/16 00:55 36.6 45 16 111/68 98 Room Air 06/28/16 00:15 Room Air 06/27/16 21:35 36.5 55 18 144/77 98 Room Air 06/27/16 18:10 65 18 138/78 97 Room Air 06/27/16 16:11 63 18 141/81 99 Room Air 06/27/16 15:33 55 06/27/16 15:20 58 16 115/68 98 Room Air 06/27/16 13:50 36.7 63 18 127/73 97 Room Air (Jessica Nelson PA-C) Physical Exam General Appearance: no apparent distress, + obese Eyes: normal inspection, PERRL ENT: hearing grossly normal Neck: supple Respiratory/Chest: lungs clear, no respiratory distress, no accessory muscle use Cardiovascular: + bradycardia, + systolic murmur Abdomen: normal bowel sounds, soft, + tenderness (Mild tenderness with moderate palaption across lower abdomen ) Extremities: no pedal edema, no calf tenderness Neurologic/Psychiatric: alert, normal mood/affect, oriented x 3 Skin: normal color, warm/dry, no rash (Jessica Nelson PA-C) Laboratory Results Last 24 Hours Test 06/27/16 14:09 06/27/16 14:50 06/27/16 20:59 06/27/16 21:39 Urine Color YELLOW Urine Appearance CLEAR Urine pH 5.0 Urine Specific [place] 1.016 Urine Protein NEG Urine Glucose (UA) NEG Urine Ketones NEG Urine Occult Blood NEG Urine Nitrite NEG Urine Bilirubin NEG Urine Urobilinogen NEG Urine Leukocyte Esterase SMALL Urine WBC (Auto) 1-5 /hpf Urine RBC (Auto) 0-4 /hpf Urine Hyaline Casts (Auto) 1-5 /lpf Urine Epithelial Cells (Auto) 5-10 /lpf Urine Bacteria (Auto) NEG White Blood Count 5.53 K/uL Red Blood Count 3.75 M/uL Hemoglobin 11.4 g/dL Hematocrit 33.3 % Mean Corpuscular Volume 88.8 fL Mean Corpuscular Hemoglobin 30.4 pg Mean Corpuscular Hemoglobin Concent 34.2 g/dl Platelet Count 95 K/uL Mean Platelet Volume 9.3 fL Neutrophils (%) (Auto) 56.3 % Lymphocytes (%) (Auto) 26.9 % Monocytes (%) (Auto) 11.2 % Eosinophils (%) (Auto) 4.7 % Basophils (%) (Auto) 0.5 % Neutrophils # (Auto) 3.11 K/uL Lymphocytes # (Auto) 1.49 K/uL Monocytes # (Auto) 0.62 K/uL Eosinophils # (Auto) 0.26 K/uL Basophils # (Auto) 0.03 K/uL RDW Standard Deviation 49.5 fL RDW Coefficient of Variation 15.3 % Immature Granulocyte % (Auto) 0.4 % Immature Granulocyte # (Auto) 0.02 K/uL Sodium Level 141 mmol/L Potassium Level 3.9 mmol/L Chloride Level 108 mmol/L Carbon Dioxide Level 23 mmol/L Anion Gap 10.0 mmol/L Blood Urea Nitrogen 26 mg/dl Creatinine 1.20 mg/dl Est Creatinine Clear Calc Drug Dose 64.7 ml/min Estimated GFR () 68.6 Estimated GFR (Non- 59.2 BUN/Creatinine Ratio 21.8 Random Glucose 135 mg/dl Calcium Level 9.5 mg/dl Total Bilirubin 0.7 mg/dl Direct Bilirubin 0.3 mg/dl Aspartate Amino Transf (AST/SGOT) 20 U/L Alanine Aminotransferase (ALT/SGPT) 22 U/L Alkaline Phosphatase 57 U/L Total Protein 6.3 gm/dl Albumin 2.8 gm/dl Lipase 145 U/L Bedside Glucose 81 mg/dl 100 mg/dl Test 06/28/16 00:17 06/28/16 03:42 06/28/16 07:50 Bedside Glucose 124 mg/dl 94 mg/dl White Blood Count 4.14 K/uL Red Blood Count 3.70 M/uL Hemoglobin 11.1 g/dL Hematocrit 32.8 % Mean Corpuscular Volume 88.6 fL Mean Corpuscular Hemoglobin 30.0 pg Mean Corpuscular Hemoglobin Concent 33.8 g/dl RDW Standard Deviation 49.3 fL RDW Coefficient of Variation 15.2 % (Jessica Nelson, RANJITH-C) Assessment and Plan This is a 75-year-old male with history of C. diff, presents to Emergency Room complaining of persistent diarrhea for the past 5 days. The patient also noticed that there was blow mild amount of blood present in his stool. The patient also has experienced persistent abdominal pain in the last 5 days, mainly located in the right lower abdomen. The patient also has been experiencing recurrent C. diff infection approximately every 3 weeks since April. He was diagnosed with C. diff in the Emergency Room twice, once in April and once in May, and he was on different combinations of antibiotic , his last one Bactrim and Flagyl approximately 3 weeks ago when he finished. He was also treated with oral vancomycin as per his son. The patient also received Augmentin just before his first C. diff diagnosis. He also is followed by Dr. Bartlett from [facility]. The patient has not been taking probiotics. He has a history of diverticulitis. Recurrent Clostridium difficile: - Admit med/surg - Oral Vancomycin 125 mg PO QID (started on 06/27) + probiotic (started 06/28) - Hydrate with IV NSS @ 75ml/hr - Follow CBC and BMP - Consult GI, appreciate recommendations. Per patient, follows with [facility] GI. ?fecal transplant T2DM: - Insulin stopped 3 weeks ago due to weight loss - BSG ACHS with sliding insulin scale - Check ha1c Cirrhosis due to hemochromatosis: hold Lactulose 30 gm PO BID due to c.diff +. Follow ammonia levels Pancytopenia, stable: Follow CBC Hypertension/CVA: Continue Coreg 6.25 mg PO BID and ASA -- Bradycardia- patient states he takes his BP and pulse at home ~3 times per day. Pulse runs in 50's-low 60's. At times, patient will feel lightheaded/ dizzy and will check his pulse/BP and rate is low's 50's. Decrease Coreg to 3.125 mg PO BID. Monitor BP and pulse. COPD: Continue Albuterol inhalers PRN Hypothyroid: Continue Synthroid 50 mcg PO daily Hyperlipidemia: Continue Pravastatin 10 mg PO HS BPH: Continue Oxybutynin 5 mg PO TID and Flomax 0.4 mg PO HS Hypomagnesemia: Continue Mag-Ox 400 mg PO daily DVT prophylaxis: Heparin 5000 units SQ q12 hrs Code Status: LEVEL I, FULL Dispo: Lives at home alone, son checks in on him. PT/OT evaluations prior to discharge. Hopefully discharge within the next 1-2 days. (Jessica Nelson ., PA-C) i personally examined pt and verified all combs points nomi Nelson PAC profuse diarrhea - multiple episodes of Cdiff. feeling better on vanco but this is about the fourth recurrence in a row and multiple recurrences before that as well. follows w dr doty d/w GI re ?fecal transplant o: vitals noted, nad, breathing unlabored, EKG appears sinus khoa but some artifact refractory Cdiff - currently improving on vanco - but with repeat recurrences - have GI see in regards to ?fecal transplant bradycardia - appearing sinus - reduce beta daron - but will repeat EKG since artifact to r/o other khoa rhythms; will also look into outpt records - pt poor historian but loosely relates story that might be vaguely consistent with tachybrady - and if so - will need ongoing close cardiology f/u DVT proph - heparin SQ otherwise as above (Jatinder Castelan D.O.)
[2016-06-28 08:47] LABS: BASO % 0.5 %; BASO ABS # 0.02 K/uL (0-0.2); COMPLETE YES; EOS % 5.1 %; IG% 0.2 %; LYMPH % 33.8 %; MONO % 10.1 %; NEUT % 50.3 %; OVALOCYTES 1+
[2016-06-28] MEDS: CARVEDILOL 6.25 MG TAB PO SCH (09:00)
[2016-06-28] MEDS: ALBUTEROL HFA 8 GM INHALER INH SCH ×4 (09:36→20:56)
[2016-06-28] MEDS: OXYBUTYNIN CHLORIDE 5 MG TAB PO SCH ×3 (09:37→20:56)
[2016-06-28] MEDS: ASPIRIN 81 MG ECTAB PO SCH (09:37)
[2016-06-28] MEDS: PANTOprazole SOD 40 MG TAB PO SCH (09:38)
[2016-06-28] MEDS: PAROXETINE 20 MG TAB PO SCH (09:39)
[2016-06-28] MEDS: MAGNESIUM OXIDE 400 MG TAB PO SCH (09:39)
[2016-06-28] MEDS: TAMSULOSIN HCL 0.4 MG CAP PO SCH (09:39)
[2016-06-28] MEDS: ALLOPURINOL 300 MG TAB PO SCH (09:40)
[2016-06-28] MEDS: RASPBERRY SYRUP 5 ML UDP PO SCH ×4 (09:41→20:55)
[2016-06-28] MEDS: HEPARIN SOD 5000 UNIT/0.5 ML CARP SQ SCH ×2 (09:44→20:57)
[2016-06-28] MEDS: VANCOMYCIN HCL 125 MG/2.5ML SOLN PO SCH ×4 (09:44→20:55)
[2016-06-28 10:43] LABS: ESTIMATED AVERAGE GLUCOSE 111 mg/dl; HA1C FLAG Normal (Normal)
[2016-06-28] MEDS: LACTOBACILLUS ACIDOPHILUS (FLORANEX) TAB PO SCH ×2 (12:00→17:51)
--- NOTE | 2016-06-28 15:32 | Gastrointestinal Consultation ---
Gastrointestinal Consultation Date of Consultation: Jun 28, 2016 Attending Physician: Dr. Monahan Consulting Physician: Dr. Levine Reason for Consultation: C-diff History of Present Illness Patient is a 75 year old male patient of Dr. Alanis with a hx of COPD, asthma, CVA, gout, cirrhosis and C-diff was admitted on 06/27 (yesterday for abdominal pain). GI is consulted for recurrent C-diff. Review IP/OP records shows that the pt has been C-diff positive on 05/11/16, , 06/27/15. The pt tells me that he believes that he had this two more times , called in, was treated but wasn't tested. He tells me that while on Flagyl or Vancomycin, he has relief from the diarrhea but it returns 1-2 days after completion of a course. His longest treatment thus far was 25 days. He will experience up to 10 liquid BMs/day. He is followed in GI clinic by Dr. Bartlett and Ledy Barker for cirrhosis. CT on 04/27/16 w/o acute abnormalities. A note at the time of his most recent GI f/u states that he was taking antibiotics for URI prior to initial C-diff and that he was responding to Vancomycin on 05/30/16. Past Medical/Surgical History Medical Problems: (1) Abdominal pain Status: Acute (2) Abdominal pain of unknown etiology Status: Acute (3) Altered mental status Status: Acute (4) C. difficile colitis Status: Acute (5) C. difficile diarrhea Status: Acute (6) Dehydration Status: Acute (7) Hydronephrosis with renal calculous obstruction Status: Acute Past Medical History: 1. GERD/Orellana's 2. GOut 3. Hemachromatosis 4. HTN 5. NAFLD 6. Kidney stones 7. CVA 8. Hypothyroidism 9. DM 10. C-diff Past Surgical History: 1. Ventral hernia repair with mesh 03/24/16 2. Muscle-skin flap of the trunk 03/24/2016 3. cholecystectomy in 2008 4. Partial colectomy for diverticulitis in 2007 and again in 2012 5. EGD 06/09/15 normal but with hx of Orellana's with recommendation for repeat in 2 yrs. 6. Colonoscopy 09/02/14: diverticula and internal hemorrhoids Family History Cancer FHx: hemochromatosis Heart disease Hypertension Social History Smoking Status: Former Smoker Alcohol Use: none Drug Use: none Marital Status: Housing Status: lives alone Occupation Status: retired Allergies Coded Allergies: Oxycodone (Verified Allergy, Mild, SHORTNESS OF BREATH, 06/27/16) wheezing ??? Dobutamine (Verified Allergy, Unknown, abd pain, 06/27/16) Iodinated Diagnostic Agents (Verified Allergy, Unknown, HIVES, 06/27/16) Meperidine (Verified Allergy, Unknown, ANAPHYLAXIS, 06/27/16) Perflutren (Verified Allergy, Unknown, abd pain, 06/27/16) Propylene Glycol (Verified Allergy, Unknown, abd pain, 06/27/16) Current Medications Home Meds and Scripts Medications Dose Route/Sig Max Daily Dose Days Date Category Dose Instructions Pyridium (Phenazopyridine HCl) 200 Mg Tab 200 Mg PO UD 06/27/16 Reported Pravastatin Sodium (Pravastatin Sod) 10 Mg Tab 10 Mg PO HS 06/27/16 Reported Ditropan (Oxybutynin Chloride) 5 Mg Tab 5 Mg PO TID 06/27/16 Reported Neurontin (Gabapentin) 300 Mg Cap 300 Mg PO HS 06/27/16 Reported Ultram (Tramadol HCl) 50 Mg Tab 50 Mg PO Q8H PRN 06/07/16 Reported Ventolin Hfa (Albuterol) 60 Puffs/5400 Mcg Aers 2 Puffs INH QID 06/07/16 Reported Humalog (Insulin Human Lispro) 1 Ea Inj Units SQ 04/20/16 Reported PRN SLIDING SCALE WELL. PRESCRIBED TO TAKE 10 BUT DOESNT ALWAYS NEED THE FULL 10 UNITS BEFORE BED Pulmicort Respules 0.5MG/2ML (Budesonide) 0.5 Mg/2 Ml Nebu 2 Ml INH BID 04/20/16 Reported Perforomist (Formoterol Fumarate) 20 Mcg/2 Ml Neb 2 Ml INH PRN UD 04/20/16 Reported Carvedilol 6.25 Mg Tab 6.25 Mg PO BID 04/20/16 Reported Aspirin Chewable (Aspirin) 81 Mg Chew 81 Mg PO QAM 03/02/16 Reported Combivent Respimat (Ipratropium-Albuterol) 1 Aer Aer 1 Puffs INH QID PRN 03/02/16 Reported Cinnamon 500 Mg Cap 500 Mg PO DAILY 01/28/16 Reported Nitrostat (Nitroglycerin) 0.4 Mg Tab 0.4 Mg UT PRN 01/21/16 Reported Flomax (Tamsulosin Hcl) 0.4 Mg Cap 0.4 Mg PO QAM 01/15/16 Reported Mag-Ox (Magnesium Oxide) 400 Mg Tab 400 Mg PO QAM 10/09/15 Reported Toujeo Solostar (Insulin Glargine) 300 Unit/Ml Inj 45 Units INJ HS 10/09/15 Reported Lactulose (Lactulose (Encephalopathy)) 10 Gm/15 Ml Jessica 30 Ml PO BID PRN 06/04/15 Reported Protonix (Pantoprazole Sodium) 40 Mg Tab 40 Mg PO DAILY 06/04/15 Reported Paroxetine HCl (Paroxetine) 10 Mg Tab 10 Mg PO QAM 06/04/15 Reported Allopurinol 300 Mg Tab 300 Mg PO QAM 02/05/14 Reported 0800 Synthroid (Levothyroxine Sodium) 50 Mcg Tab 50 Mcg PO QAM 02/05/14 Reported 0600 Review of Systems Constitutional: No chills, No fever, No sweats, No weakness, No weight loss Eyes: No eye pain, No redness ENT: No pain on swallowing, No sore throat, No trouble swallowing Respiratory: No cough, No dyspnea on exertion, No shortness of breath, No wheezing Cardiac: No chest pain, No edema, No palpitations Abdomen: + diarrhea, + pain, + see HPI, No GI bleeding Neuro: No balance problems, No memory loss, No numbness/tingling, No vertigo, No weakness Psych: No anxiety, No depression symptoms, No insomnia Heme: No abnormal bleeding/bruising, No night sweats Endo: No excessive thirst, No excessive urination Skin: No itch, No jaundice, No new/changing skin lesions, No rash Physical Exam Date Time Temp Pulse Resp B/P Pulse Ox O2 Delivery O2 Flow Rate FiO2 06/28/16 08:38 36.2 45 20 122/76 98 Room Air 06/28/16 08:00 Room Air 06/28/16 06:56 85 18 95 Room Air 06/28/16 00:55 36.6 45 16 111/68 98 Room Air 06/28/16 00:15 Room Air 06/27/16 21:35 36.5 55 18 144/77 98 Room Air 06/27/16 18:10 65 18 138/78 97 Room Air 06/27/16 16:11 63 18 141/81 99 Room Air 06/27/16 15:33 55 General Appearance: no apparent distress, + obese Eyes: normal inspection, EOMI Neck: supple, no adenopathy, thyroid normal Respiratory/Chest: chest non-tender, lungs clear, normal breath sounds, no accessory muscle use Cardiovascular: regular rate, rhythm, no JVD, no murmur Abdomen: normal bowel sounds, soft, no organomegaly, + tenderness (mild, diffuse), + pertinent finding (large abdominal scarring) Extremities: normal inspection, no pedal edema, normal capillary refill Neurologic/Psych: alert, normal mood/affect, oriented x 3 Skin: normal color, no jaundice, warm/dry, no rash Laboratory Results Last 24 Hours Test 06/27/16 20:59 06/27/16 21:39 06/28/16 00:17 06/28/16 03:42 Bedside Glucose 81 mg/dl 100 mg/dl 124 mg/dl 94 mg/dl Test 06/28/16 07:20 06/28/16 07:50 06/28/16 11:59 Bedside Glucose 94 mg/dl 110 mg/dl White Blood Count 4.14 K/uL Red Blood Count 3.70 M/uL Hemoglobin 11.1 g/dL Hematocrit 32.8 % Mean Corpuscular Volume 88.6 fL Mean Corpuscular Hemoglobin 30.0 pg Mean Corpuscular Hemoglobin Concent 33.8 g/dl Platelet Count 86 K/uL Mean Platelet Volume 9.3 fL Neutrophils (%) (Auto) 50.3 % Lymphocytes (%) (Auto) 33.8 % Monocytes (%) (Auto) 10.1 % Eosinophils (%) (Auto) 5.1 % Basophils (%) (Auto) 0.5 % Neutrophils # (Auto) 2.08 K/uL Lymphocytes # (Auto) 1.40 K/uL Monocytes # (Auto) 0.42 K/uL Eosinophils # (Auto) 0.21 K/uL Basophils # (Auto) 0.02 K/uL RDW Standard Deviation 49.3 fL RDW Coefficient of Variation 15.2 % Immature Granulocyte % (Auto) 0.2 % Immature Granulocyte # (Auto) 0.01 K/uL Ovalocytes 1+ Sodium Level 145 mmol/L Potassium Level 3.9 mmol/L Chloride Level 111 mmol/L Carbon Dioxide Level 23 mmol/L Anion Gap 11.0 mmol/L Blood Urea Nitrogen 20 mg/dl Creatinine 1.10 mg/dl Est Creatinine Clear Calc Drug Dose 70.1 ml/min Estimated GFR () 76.2 Estimated GFR (Non- 65.8 BUN/Creatinine Ratio 18.5 Random Glucose 86 mg/dl Estimated Average Glucose 111 mg/dl Hemoglobin A1c 5.5 % Calcium Level 9.3 mg/dl Impression Patient is a 75 year old male with recurrent C-diff diarrhea. Plan 1. Suggest Vancomycin 250mg QID x a few days, then 125mg QID x 1 wk, then BID x 1 wk, then daily x 1 wk, then one tab every other day, ongoing. 2. Pt has identified that his son would be an appropriate donor. 3. Given the choice of [facility] or [facility], pt prefers [facility], however, would have better availability at [facility]. 4. Our office will call the patient to offer a Monday appt for this pt to discuss possible fecal transplant. The pt is aware that the potential donor ( his son) will need to come to the office visit with him and will need to eventually provide a stool sample for C-diff testing. 5. May add cholestyramine if needed for diarrhea. 6. GI will watch peripherally.
[2016-06-28] MEDS: CARVEDILOL 3.125 MG TAB PO SCH (20:54)
[2016-06-28] MEDS: GABAPENTIN 300 MG CAP PO SCH (20:56)
[2016-06-28] MEDS: PRAVASTATIN SOD 10 MG TAB PO SCH (20:56)
[2016-06-29 05:48] LABS: HEMATOCRIT 33.2 % (42-52); MEAN CELL VOLUME 89.5 fL (80-100); MEAN CORPUSCULAR HEMOGLOBIN 30.5 pg (25-34); RED BLOOD COUNT 3.71 M/uL (4.7-6.1); WHITE BLOOD COUNT 4.48 K/uL (4.8-10.8)
[2016-06-29] MEDS: LEVOTHYROXINE 50 MCG TAB PO SCH (05:52)
[2016-06-29 05:54] LABS: MEAN PLATELET VOLUME 9.4 fL (7.4-10.4); PLATELET COUNT 84 K/uL (130-400)
[2016-06-29 07:02] VITALS: PULSE 63; O2SAT 98
[2016-06-29] MEDS: BUDESONIDE 0.5 MG/2 ML VIAL (PULMICORT) INH SCH (07:02)
[2016-06-29 07:44] VITALS: BP 119/69; PULSE 54; TEMP 36.6; O2SAT 98
[2016-06-29] MEDS: CARVEDILOL 3.125 MG TAB PO SCH (09:00)
[2016-06-29] MEDS: SODIUM CHLORIDE 0.9% 1000ML 1,000 ML IV SCH (09:09)
[2016-06-29] MEDS: RASPBERRY SYRUP 5 ML UDP PO SCH ×2 (09:10→13:03)
[2016-06-29] MEDS: OXYBUTYNIN CHLORIDE 5 MG TAB PO SCH (09:12)
[2016-06-29] MEDS: ALBUTEROL HFA 8 GM INHALER INH SCH ×2 (09:12→13:05)
[2016-06-29] MEDS: ALLOPURINOL 300 MG TAB PO SCH (09:13)
[2016-06-29] MEDS: ASPIRIN 81 MG ECTAB PO SCH (09:13)
[2016-06-29] MEDS: LACTOBACILLUS ACIDOPHILUS (FLORANEX) TAB PO SCH ×2 (09:15→13:04)
[2016-06-29] MEDS: MAGNESIUM OXIDE 400 MG TAB PO SCH (09:16)
[2016-06-29] MEDS: PAROXETINE 20 MG TAB PO SCH (09:16)
[2016-06-29] MEDS: PANTOprazole SOD 40 MG TAB PO SCH (09:17)
[2016-06-29] MEDS: TAMSULOSIN HCL 0.4 MG CAP PO SCH (09:18)
[2016-06-29] MEDS: VANCOMYCIN HCL 250 MG/5 ML SOLN PO SCH ×2 (09:23→13:03)
[2016-06-29] MEDS: HEPARIN SOD 5000 UNIT/0.5 ML CARP SQ SCH (09:23)
[2016-06-29] MEDS: INSULIN ASPART 100 UNITS/ML 3 ML PEN SC SCH ×2 (09:23→11:00)
[2016-06-29] MEDS ORDERED: VNCLRX PO (09:48)
[2016-06-29] MEDS ORDERED: VNCS250 PO (09:48)
[2016-06-29 09:56] LABS: BUN/CREATININE RATIO 13.5 (10-20); CALCIUM 9.3 mg/dl (8.5-10.1); CREATININE 1.3 mg/dl (0.60-1.40); POTASSIUM 3.8 mmol/L (3.5-5.1)
[2016-06-29 10:39] VITALS: O2SAT 98
--- NOTE | 2016-06-29 11:07 | Discharge Instructions ---
Discharge Instructions Admission Reason for Admission: Clostridium Dificile Diarrhea (Jessica Nelson PA-C) Discharge Discharge Diagnosis / Problem: Clostridium Difficile; diarrhea (Jessica Nelson PA-C) Discharge Goals Goal(s): Decrease discomfort, Improve function, Improve disease control, Diagnostic testing, Therapeutic intervention, Prevent Disease Progression (Jessica Nelson PA-C) Activity Recommendations Activity Limitations: resume your previous activity . (Jessica Nelson PA-C) Instructions / Follow-Up Instructions / Follow-Up Clostridium difficile: - Please take... Vancomycin 250 mg (2 tablets) by mouth four times per day for 3 days Then starting on 07/02, Vancomycin 125 mg (1 tablet) by mouth four time per day for 1 week Then starting on 07/09, Vancomycin 125 mg (1 tablet) by mouth twice per day for 1 week Then starting on 07/16, Vancomycin 125 mg (1 tablet) by mouth daily for 1 week. START THIS MEDICATION WHEN YOU GET THE PRESCRIPTION (afternoon of 06/29- so on 06/29 you will take three more pills, as you have received one dose this morning in the hospital). - We have started you on Floranex 4 tablets by mouth three times per day. This medication can be bought [id number]. This medication helps the "good" bacteria grow in your bowels. Please take this medication until a few days after completion of Vancomycin. We have DECREASED your Coreg to 3.125 mg by mouth twice per day. We decreased your medication due to slow heart rate and complaints of dizziness/ lightheadedness. Please follow-up with Cardiology. Please STOP taking your Lactulose at this time. You will need to follow-up with PCP to watch ammonia levels. They will further instruct you on when to resume this medication. You may resume all other regular home medications as prescribed to you. You will be notified of your GI appointment. It is important you keep this scheduled appointment to discuss the option of fecal transplant. If you do not here about appointment within the next few days, please call the office to schedule an appointment within 1-2 weeks. Please follow-up with your PCP within 3-5 days. You need to follow-up with your hand drawer in within the next 1-2 weeks. Please follow-up/keep all of your subspecialty appointments. (Jessica Nelson PA-C) Current Hospital Diet Patient's current hospital diet: Diabetes Type 2 Diet (Jessica Nelson PA-C) Discharge Diet Recommended Diet: Diabetes Type 2 Diet (Jessica Nelson PA-C) Procedures Procedures Performed: 1. Abdomen/pelvix CT (Jessica Nelson PA-C) Pending Studies Studies pending at discharge: no (Jessica Nelson PA-C) Laboratory Results Last 24 Hours Test 06/28/16 11:59 06/28/16 16:21 06/28/16 20:12 06/29/16 00:00 Bedside Glucose 110 mg/dl 76 mg/dl 108 mg/dl Sodium Level 141 mmol/L Potassium Level 3.8 mmol/L Chloride Level 109 mmol/L Carbon Dioxide Level 24 mmol/L Anion Gap 8.0 mmol/L Blood Urea Nitrogen 18 mg/dl Creatinine 1.30 mg/dl Est Creatinine Clear Calc Drug Dose 59.3 ml/min Estimated GFR () 62.3 Estimated GFR (Non- 53.8 BUN/Creatinine Ratio 13.5 Random Glucose 141 mg/dl Calcium Level 9.3 mg/dl Test 06/29/16 05:35 06/29/16 07:21 White Blood Count 4.48 K/uL Red Blood Count 3.71 M/uL Hemoglobin 11.3 g/dL Hematocrit 33.2 % Mean Corpuscular Volume 89.5 fL Mean Corpuscular Hemoglobin 30.5 pg Mean Corpuscular Hemoglobin Concent 34.0 g/dl RDW Standard Deviation 50.0 fL RDW Coefficient of Variation 15.2 % Platelet Count 84 K/uL Mean Platelet Volume 9.4 fL Ammonia 42.0 umol/L Bedside Glucose 85 mg/dl Hemoglobin A1c Test 06/28/16 07:50 Range/Units Estimated Average Glucose 111 mg/dl Hemoglobin A1c 5.5 4.5-5.6 % Lipid Panel Test 04/22/16 07:40 Range/Units Triglycerides Level 162 H 0-150 mg/dl Cholesterol Level 121 0-200 mg/dl HDL Cholesterol 35 mg/dl Cholesterol/HDL Ratio 3.5 LDL Cholesterol, Calculated 54 mg/dl (Jessica Nelson PA-C) Medical Emergencies . Who to Call and When: Medical Emergencies: If at any time you feel your situation is an emergency, please call 911 immediately. . (Jessica Nelson ., PA-C) Non-Emergent Contact Non-Emergency issues call your: Primary Care Provider Call Non-Emergent contact if: you have a fever, your pain is not controlled, your pain is worsening, your pain is unusual for you, your pain is concerning you, you have any medication questions . (Jessica Nelson, SANAC) . "Provider Documentation" section prepared by Jessica Nelson. (Jessica Nelson, RANJITH-C) VTE Core Measure Inpt VTE Proph given/why not?: Unfractionated heparin SQ, T.E.D. Stockings, SCD 's (Jessica Nelson, PA-C)
--- NOTE | 2016-06-29 11:10 | Discharge Summary ---
Discharge Summary Admission Date: Jun 27, 2016 at 16:35 Discharge Date: Jun 29, 2016 Discharge Disposition: Home Principal Diagnosis: C. diff Problems/Secondary Diagnoses: 1. Recurrent Clostridium difficile 2. hx of T2DM 3. Cirrhosis due to hemochromatosis 4. Pancytopenia 5. Hypertension/CVA 6. COPD 7. Hypothyroid 8. Hyperlipidemia 9. BPH 10. Hypomagnesemia Procedures: CT SCAN OF THE ABDOMEN AND PELVIS WITHOUT IV CONTRAST CLINICAL HISTORY: Right lower quadrant abdominal pain. COMPARISON STUDY: Abdominal CT dated 04/27/2016. TECHNIQUE: CT scan of the abdomen and pelvis is performed from the lung bases to the proximal femora. Images are reviewed in the axial, sagittal, and coronal planes. IV contrast was not administered for this examination as per the referring clinician. Note that the examination was performed in suboptimal fashion without oral and IV contrast. Automated dose control exposure was utilized. CT DOSE: 1103.58 mGycm FINDINGS: Lung bases: The heart is enlarged and without pericardial effusion. The coronary arteries an aortic valve leaflets are densely calcified. A small hiatal hernia is noted. Emphysema is suspected. No airspace consolidation or pleural effusion is seen. Dependent atelectasis is noted. Liver: The unenhanced liver is cirrhotic in morphology and heterogeneous in attenuation. There is nodularity of the surface contour, hypertrophy of the left lobe and caudate, and widening of the fissures. There is mild intrahepatic biliary ductal dilatation, likely on a postoperative basis. Gallbladder: Surgically absent noting clips in the gallbladder fossa. Spleen: The spleen is enlarged, measuring there is recanalization of the periumbilical vein. 16.5 Cm in length. Pancreas: The unenhanced pancreas is mildly atrophic and grossly unremarkable. Adrenal glands: Unremarkable. Kidneys: The unenhanced kidneys demonstrate mild cortical atrophy and are without hydronephrosis. There is a punctate nonobstructing left calculus. There is no evidence of contour deforming renal mass lesion. A circumaortic left renal vein is incidentally noted. Abdominal vasculature: There is ectasia and advanced atherosclerotic calcification of the abdominal aorta. Bowel: There are postoperative changes from sigmoid colon resection with colocolonic anastomosis. There is moderate diverticulosis of the remaining colon without CT evidence of acute diverticulitis. There is a long segment of wall thickening with mild pericolonic inflammation seen involving the left colon. This extends from the distal transverse colon to the rectum. The appearance is consistent with a nonspecific colitis. The appendix is well-visualized and normal. Peritoneum: There is no intraperitoneal free air or abdominal ascites. Omental collateral vessels are noted in the left lower quadrant. There is evidence of previous ventral hernia repair. Lymphadenopathy: None. Pelvic viscera: The prostate gland is enlarged and heterogeneous, measuring up to 6.2 cm in transverse diameter. The bladder wall appears thickened and trabeculated, likely related to chronic outlet obstruction. There are small bilateral fat-containing inguinal hernias, left larger than right. Skeletal structures: The skeletal structures are osteopenic. No lytic or blastic lesions are seen. Mild to moderate lumbosacral spondylosis is observed. Degenerative changes are seen involving the sacroiliac joints. IMPRESSION: 1. Suboptimal examination without oral and IV contrast. 2. Findings are consistent with a nonspecific colitis involving the left colon as detailed above, likely on an infectious or inflammatory basis. 3. Cirrhotic liver morphology. 4. Splenomegaly and omental collateral vessels indicate portal hypertension. 5. There are postoperative changes from sigmoid colon resection with colocolonic anastomosis. No bowel obstruction is seen. There is moderate diverticulosis of the remaining colon without CT evidence of acute diverticulitis. 6. Cardiomegaly and suspect emphysema. 7. There is a punctate nonobstructing left renal calculus. 8. Prostatomegaly with evidence of chronic bladder outlet obstruction. 9. Additional changes as detailed above. Electronically signed by: Derrek Silva M.D. 06/27/2016 3:30 PM Dictated Date/Time: 06/27/2016 3:21 PM The status of this report is Signed. Draft = Not yet reviewed or approved by Radiologist. Signed = Reviewed and approved by Radiologist. Consultations: GI- Dr. Levine and Bell Ryan (Jessica Nelson PA-C) Medication Reconciliation New Medications: Vancomycin HCl (Vancomycin HCl) 125 Mg/5 Ml Syrp 125 MG PO UD for 21 Days, #49 DOSE 125 mg QID x1 week, then 125 mg BID x1 week, then 125 mg daily x1 week Vancomycin HCl (Vancomycin HCl) 250 Mg/5 Ml Susp 250 MG PO QID for 3 Days, #11 DOSE Continued Medications: Albuterol (Ventolin Hfa) 60 Puffs/5400 Mcg Aers 2 PUFFS INH QID Allopurinol (Allopurinol) 300 Mg Tab 300 MG PO QAM 0800 Aspirin (Aspirin Chewable) 81 Mg Chew 81 MG PO QAM Budesonide (Pulmicort Respules 0.5MG/2ML) 0.5 Mg/2 Ml Nebu 2 ML INH BID, EA Carvedilol (Carvedilol) 6.25 Mg Tab 6.25 MG PO BID, #60 Cinnamon (Cinnamon) 500 Mg Cap 500 MG PO DAILY Formoterol Fumarate (Perforomist) 20 Mcg/2 Ml Neb 2 ML INH PRN UD Gabapentin (Neurontin) 300 Mg Cap 300 MG PO HS, CAP Insulin Glargine (Toujeo Solostar) 300 Unit/Ml Inj 45 UNITS INJ HS Insulin Human Lispro (Humalog) 1 Ea Inj UNITS SQ PRN SLIDING SCALE WELL. PRESCRIBED TO TAKE 10 BUT DOESNT ALWAYS NEED THE FULL 10 UNITS BEFORE BED Ipratropium-Albuterol (Combivent Respimat) 1 Aer Aer 1 PUFFS INH QID PRN for Shortness of Breath, INH Levothyroxine Sodium (Synthroid) 50 Mcg Tab 50 MCG PO QAM 0600 Magnesium Oxide (Mag-Ox) 400 Mg Tab 400 MG PO QAM, TAB Nitroglycerin (Nitrostat) 0.4 Mg Tab 0.4 MG UT PRN for chest pain, BTL Oxybutynin Chloride (Ditropan) 5 Mg Tab 5 MG PO TID, TAB Pantoprazole Sodium (Protonix) 40 Mg Tab 40 MG PO DAILY Paroxetine (Paroxetine HCl) 10 Mg Tab 10 MG PO QAM Phenazopyridine HCl (Pyridium) 200 Mg Tab 200 MG PO UD, #6 TAB Pravastatin Sod (Pravastatin Sodium) 10 Mg Tab 10 MG PO HS Tamsulosin Hcl (Flomax) 0.4 Mg Cap 0.4 MG PO QAM, CAP Tramadol (Ultram) 50 Mg Tab 50 MG PO Q8H PRN for Pain, TAB Discontinued Medications: Lactulose (Encephalopathy) (Lactulose) 10 Gm/15 Ml Jessica 30 ML PO BID PRN for Constipation Referrals At Discharge Follow up Referrals: Family Practice Referral - First Available with Domo Alanis D.O. [place] Referral - 07/04/16 with Raul Levine M.D. Discharge Exam Review of Systems: Constitutional: No chills, No fatigue, No fever, No sweats, No weakness Respiratory: No cough, No hemoptysis, No shortness of breath Cardiovascular: No chest pain, No edema, No palpitations Abdomen: + diarrhea, + pain, No constipation, No nausea, No vomiting Musculoskeletal: No calf pain, No joint pain, No muscle pain, No swelling Genitourinary - Male: + dysuria, No hematuria Neurologic: No numbness/tingling, No weakness Psychiatric: No anxiety, No depression symptoms Hematologic / Lymphatic: No abnormal bleeding/bruising Integumentary: No itch, No new/changing skin lesions, No rash Physical Exam: General Appearance: no apparent distress Eyes: normal inspection, PERRL ENT: hearing grossly normal Neck: supple Respiratory/Chest: lungs clear, no respiratory distress, no accessory muscle use Cardiovascular: regular rate, rhythm, + systolic murmur Abdomen / GI: normal bowel sounds, non tender, soft Extremities: no calf tenderness, no pedal edema Neurologic/Psychiatric: alert, normal mood/affect, oriented x 3 Skin: normal color, warm/dry, no rash (Jessica Nelson, PA-C) Hospital Course This is a 75-year-old male with history of C. diff, presents to Emergency Room complaining of persistent diarrhea for the past 5 days. The patient also noticed that there was blow mild amount of blood present in his stool. The patient also has experienced persistent abdominal pain in the last 5 days, mainly located in the right lower abdomen. The patient also has been experiencing recurrent C. diff infection approximately every 3 weeks since April. He was diagnosed with C. diff in the Emergency Room twice, once in April and once in May, and he was on different combinations of antibiotic , his last one Bactrim and Flagyl approximately 3 weeks ago when he finished. He was also treated with oral vancomycin as per his son. The patient also received Augmentin just before his first C. diff diagnosis. He also is followed by Dr. Bartlett from [facility]. The patient has not been taking probiotics. He has a history of diverticulitis. Recurrent Clostridium difficile: - Admit med/surg - Oral Vancomycin 125 mg PO QID (started on 06/27) + probiotic (started 06/28) - Hydrate with IV NSS @ 75ml/hr - Follow CBC and BMP - Consult GI, appreciate recommendations. Per patient, follows with [facility]. ?fecal transplant At discharge, per GI recommendations- Vancomycin 250 mg PO QID x3 days, 125 mg PO QID x1 week, 125 mg PO BID x1 week, 125 mg PO daily x1 week. Continue Probiotics. T2DM: - Insulin stopped 3 weeks ago due to weight loss - BSG ACHS with sliding insulin scale - Check ha1c Cirrhosis due to hemochromatosis: hold Lactulose 30 gm PO BID due to c.diff +. Follow ammonia levels At discharge, patient instructed to HOLD Lactulose and have close follow-up with PCP to watch ammonia levels and further instruct patient when to resume medication. Pancytopenia, stable: Follow CBC Hypertension/CVA: Continue Coreg 6.25 mg PO BID and ASA -- Bradycardia- patient states he takes his BP and pulse at home ~3 times per day. Pulse runs in 50's-low 60's. At times, patient will feel lightheaded/ dizzy and will check his pulse/BP and rate is low's 50's. Decrease Coreg to 3.125 mg PO BID. Monitor BP and pulse. Rate controlled at 50-60s with decrease in Coreg. Discharge with Coreg at 3.125 mg PO BID. Instructed to follow-up with Cardiology within 1-2 weeks COPD: Continue Albuterol inhalers PRN Hypothyroid: Continue Synthroid 50 mcg PO daily Hyperlipidemia: Continue Pravastatin 10 mg PO HS BPH: Continue Oxybutynin 5 mg PO TID and Flomax 0.4 mg PO HS Hypomagnesemia: Continue Mag-Ox 400 mg PO daily DVT prophylaxis: Heparin 5000 units SQ q12 hrs Code Status: LEVEL I, FULL Dispo: Discharge to home Total Time Spent: Greater than 30 minutes This includes examination of the patient, discharge planning, medication reconciliation, and communication with other providers. (Jessica Nelson ., PA-C) i personally examined pt and veerified all combs points w Srinath Nelson PAC feeling better, bowels more controlled. no lightheadedness. feels oK to go home. OK w fecal transplant just wants to make sure dr lalitha carl w plan as well. d/w cardiology - follows w EP -- will have set up for outpt f/u. nad vitals noted, breathing unlabored; extensive discussion w pt and son -recurrent / refractory Cdiff - vanco --> fecal transplant -bradycardia - acutely appearing med related - reduced (above med rec in error - - reduced to 3.125mg bid - will call pt to confirm/clarify) but d/w pt and son concern on slowly developing tachybrady syndrome -no indications this is clearly the case right now - but will want ongoing close cardiology f/u Total Time Spent: Greater than 30 minutes (Jatinder Castelan D.O.) Discharge Instructions Please refer to the electronic Patient Visit Report (Discharge Instructions) for additional information. (Jessica Nelson ., PA-C) Follow-Up Please follow-up with your PCP within 3-5 days. Follow-up with Cardiology within 1-2 weeks. GI appointment follow-up being arranged. Patient will be notified. Please follow-up/keep all of your subspecialty appointments. (Jessica Nelson, PA-C) Additional Copies To Domo Alanis D.O.; My Bartlett, DO
--- NOTE | 2016-06-29 12:00 | Gastroenterology Progress Note ---
Progress Note Date of Service: Jun 29, 2016 Subjective Pt evaluation today including: conversation w/ patient, physical exam, chart review, lab review, review of studies, review of inpatient medication list Mr. Bonner is a 75 yr old male admitted for abdominal pain. He has recurrent C- diff in the setting of frequent antibiotic use for respiratory issues and recently with urinary issues. On Vancomycin po. 3 loose BMs yesterday, one thus far today. Appear well but continues to c/o lower abdomen pain and tells me that he has urethral pain on urination, as well as frequent urination. Review of Systems Constitutional: No fever Respiratory: No cough Cardiac: No chest pain Abdomen: + diarrhea, + pain, No nausea, No vomiting Musculoskeletal: No joint pain Male : + dysuria, + slowing stream, + urinary frequency Neuro: No memory loss Psych: No depression symptoms Heme: No abnormal bleeding/bruising Endo: No fatigue Skin: No rash Medications Current Inpatient Medications Medications (Trade) Dose Ordered Sig/Ronna Route Start Time Stop Time Status Last Admin Dose Admin Albuterol (Ventolin Hfa Inhaler) 2 puffs QID INH 06/27/16 17:00 07/27/16 16:59 06/29/16 09:12 2 PUFFS Allopurinol (Zyloprim Tab) 300 mg QAM PO 06/28/16 09:00 07/28/16 08:59 06/29/16 09:13 300 MG Aspirin (Ecotrin Tab) 81 mg QAM PO 06/28/16 09:00 07/28/16 08:59 06/29/16 09:13 81 MG Budesonide (Pulmicort Respules 0.5MG/ 2ML Neb Soln) 1 mg BIDR INH 06/27/16 20:00 07/27/16 19:59 06/29/16 07:02 1 MG Gabapentin (Neurontin Cap) 300 mg HS PO 06/27/16 21:00 07/27/16 20:59 06/28/16 20:56 300 MG Levothyroxine Sodium (Synthroid Tab) 50 mcg DAILYBB PO 06/28/16 06:30 07/28/16 06:59 06/29/16 05:52 50 MCG Magnesium Oxide (Mag-Ox Tab) 400 mg QAM PO 06/28/16 09:00 07/28/16 08:59 06/29/16 09:16 400 MG Nitroglycerin (Nitrostat Tab) 0.4 mg UD PRN UT 06/27/16 16:30 07/27/16 16:29 Oxybutynin Chloride (Ditropan Tab) 5 mg TID PO 06/27/16 21:00 07/27/16 20:59 06/29/16 09:12 5 MG Pantoprazole Sodium (Protonix Tab) 40 mg DAILY PO 06/28/16 09:00 07/28/16 08:59 06/29/16 09:17 40 MG Miscellaneous Information (Order Awaiting Action) 1 ea QS N/A 06/28/16 00:00 07/28/16 00:00 Pravastatin Sodium (Pravachol Tab) 10 mg HS PO 06/27/16 21:00 07/27/16 20:59 06/28/16 20:56 10 MG Tamsulosin HCl (Flomax Cap) 0.4 mg QAM PO 06/28/16 09:00 07/28/16 08:59 06/29/16 09:18 0.4 MG Tramadol HCl (Ultram Tab) 50 mg Q8H PRN PO 06/27/16 16:30 07/27/16 16:29 06/28/16 21:02 50 MG Paroxetine HCl (pAXil TAB) 10 mg QAM PO 06/28/16 09:00 07/28/16 08:59 06/29/16 09:16 10 MG Albuterol/ Ipratropium 3 ml 3 ml Q4R PRN INH 06/27/16 16:30 07/27/16 16:29 06/28/16 20:24 3 ML Sodium Chloride (Nss 1000ml) 1,000 ml @ 75 mls/hr [id number] IV 06/27/16 16:30 07/27/16 16:29 06/29/16 09:09 75 MLS/HR Acetaminophen (Tylenol Tab) 650 mg Q4H PRN PO 06/27/16 16:30 07/27/16 16:29 Magnesium Hydroxide (Milk Of Magnesia Susp) 30 ml Q6H PRN PO 06/27/16 16:30 07/27/16 16:29 Ondansetron HCl (Zofran Inj) 4 mg Q6H PRN IV 06/27/16 16:30 07/27/16 16:29 Heparin Sodium (Porcine) (Heparin Sq 5000 Unit/0.5ml) 5,000 unit Q12 SQ 06/27/16 21:00 07/27/16 20:59 06/29/16 09:23 5,000 UNIT Insulin Aspart (novoLOG ASPART) SLIDING SCALE G... ACHS SC 06/27/16 21:00 07/27/16 20:59 06/29/16 09:23 4 UNITS Raspberry (Raspberry Syrup 5ml Cup) 5 ml QID PO 06/27/16 21:00 07/07/16 20:59 06/29/16 09:10 5 ML Glucose (Glucose 40% Gel) 15-30 GRAMS 15 GRAMS... UD PRN PO 06/27/16 17:00 07/27/16 16:59 Glucose (Glucose Chew Tab) 4-8 Tablets 4 Tabl... UD PRN PO 06/27/16 17:00 07/27/16 16:59 Dextrose (Dextrose 50% 50ML Syringe) 25-50ML OF 50% DW IV FOR... UD PRN IV 06/27/16 17:00 07/27/16 16:59 Glucagon (Glucagon Inj) 1 mg UD PRN SQ 06/27/16 17:00 07/27/16 16:59 Lactobacillus Acidophilus (Floranex Tab) 4 tab TIDM PO 06/28/16 12:00 07/28/16 11:59 06/29/16 09:15 4 TAB Carvedilol (Coreg Tab) 3.125 mg BID PO 06/28/16 21:00 07/28/16 20:59 Vancomycin HCl (Vancomycin Oral Soln) 250 mg QID PO 06/29/16 09:00 07/02/16 08:59 06/29/16 09:23 250 MG Objective Vital Signs Date Time Temp Pulse Resp B/P Pulse Ox O2 Delivery O2 Flow Rate FiO2 06/29/16 10:39 98 Room Air 06/29/16 08:00 Room Air 06/29/16 07:44 36.6 54 20 119/69 98 Room Air 06/29/16 07:02 63 16 98 Room Air 06/29/16 06:37 Room Air 06/28/16 23:56 36.7 58 20 122/75 99 Room Air 06/28/16 21:55 Room Air 06/28/16 20:54 51 106/53 06/28/16 19:15 80 18 95 Room Air 06/28/16 15:38 36.5 43 17 116/69 99 Room Air Physical Exam General Appearance: no apparent distress Neck: no JVD Respiratory/Chest: lungs clear, + decreased breath sounds (at bases) Cardiovascular: regular rate, rhythm, no JVD, no murmur Abdomen: soft, + distended (mild), + tenderness (mild suprapubic tenderness) Neurologic/Psych: alert, normal mood/affect, oriented x 3 Skin: no jaundice Laboratory Results Last 24 Hours Test 06/28/16 11:59 06/28/16 16:21 06/28/16 20:12 06/29/16 00:00 Bedside Glucose 110 mg/dl 76 mg/dl 108 mg/dl Sodium Level 141 mmol/L Potassium Level 3.8 mmol/L Chloride Level 109 mmol/L Carbon Dioxide Level 24 mmol/L Anion Gap 8.0 mmol/L Blood Urea Nitrogen 18 mg/dl Creatinine 1.30 mg/dl Est Creatinine Clear Calc Drug Dose 59.3 ml/min Estimated GFR () 62.3 Estimated GFR (Non- 53.8 BUN/Creatinine Ratio 13.5 Random Glucose 141 mg/dl Calcium Level 9.3 mg/dl Test 06/29/16 05:35 06/29/16 07:21 06/29/16 11:41 White Blood Count 4.48 K/uL Red Blood Count 3.71 M/uL Hemoglobin 11.3 g/dL Hematocrit 33.2 % Mean Corpuscular Volume 89.5 fL Mean Corpuscular Hemoglobin 30.5 pg Mean Corpuscular Hemoglobin Concent 34.0 g/dl RDW Standard Deviation 50.0 fL RDW Coefficient of Variation 15.2 % Platelet Count 84 K/uL Mean Platelet Volume 9.4 fL Ammonia 42.0 umol/L Bedside Glucose 85 mg/dl 129 mg/dl Assessment and Plan Mr. Bonner is a 75 yr old male with recurrent C-diff diarrhea. Plan: 1. His abdominal pain may be more related to urinary issues than the C-diff. He is followed by urology as an OP. I encouraged him to be in touch with urology. 2. A long discussion regarding risks/benefits of fecal transplant and suitability of donor took place. We are tentatively planning for colonoscopy with fecal transplant at [facility] with Dr. Levine in the next few weeks. Our [facility] office will coordinate this. 3. While awaiting the fecal transplant, the pt should be on a long vanco po taper: 125mg QID x 1 wk, then TID x 1 wk, then BID x 1 wk, then QOD. He should stop the taper 2 days prior to the fecal transplant. Pt should avoid any other use of antibiotics when possible. 4. GI will sign off. Please notify us if new/worrisome GI issues.
[2016-06-29 12:28] VITALS: BP 119/69; PULSE 54; TEMP 36.6; O2SAT 98
[2016-09-06] MEDS ORDERED: MECL1TAB42 PO (23:01)
[2016-09-06] MEDS ORDERED: ATOR-24 PO (23:01)
[2016-12-26] MEDS ORDERED: ASPI81TA28 PO (09:31)
[2016-12-26] MEDS ORDERED: LACT10SO17 PO (09:31)
[2016-12-26] MEDS ORDERED: CARV3.12 PO (09:31)
[2016-12-26] MEDS ORDERED: VITAMIN B12 INJ (09:31)
[2016-12-26] MEDS ORDERED: THIA100T46 PO (09:35)
[2016-12-26] MEDS ORDERED: CALC625T13 PO (09:36)
[2016-12-26] MEDS ORDERED: CHOL1CAP57 PO (09:37)
[2017-01-09] MEDS ORDERED: HYDR-3419 PO (09:54)
[2017-01-09] MEDS ORDERED: CIPR-255 PO (09:54)
[2017-01-09] MEDS ORDERED: PHEN-775 PO (09:54)
== END 2016-06-29 13:13 | disposition home or self-care (01) | DRG 373 ==
LOC: ENRESERVDT → ENRESERVTM → C.EDB 13:48 → C.MS2W 16:35 → UNDOADMIN 16:35
PROVIDERS: ADMIT Hospitalist; ATTEND Family Medicine
DX: A04.7 Enterocolitis due to Clostridium difficile (principal); I10 Essential (primary) hypertension; E83.119 Hemochromatosis, unspecified; K74.60 Unspecified cirrhosis of liver; Z86.73 Personal history of transient ischemic attack (TIA), and cerebral infarction without residual deficits; E11.9 Type 2 diabetes mellitus without complications; Z79.4 Long term (current) use of insulin; J44.9 Chronic obstructive pulmonary disease, unspecified; E03.9 Hypothyroidism, unspecified; E78.5 Hyperlipidemia, unspecified; N40.0 Benign prostatic hyperplasia without lower urinary tract symptoms; E83.42 Hypomagnesemia; M10.9 Gout, unspecified; J45.909 Unspecified asthma, uncomplicated; K57.90 Diverticulosis of intestine, part unspecified, without perforation or abscess without bleeding; K44.9 Diaphragmatic hernia without obstruction or gangrene; Z87.891 Personal history of nicotine dependence; K21.9 Gastro-esophageal reflux disease without esophagitis; Z87.442 Personal history of urinary calculi

== ENCOUNTER 2016-08-04 09:31 | Emergency (ER) | payer OTHER, MEDICARE ==
[~2016-08-04] VITALS: Ht 175.3 cm; Wt 109.0 kg
[~2016-08-04 09:31] MED LIST changes: -ATOR-24 PO; +CRG625 PO; -DOCU100C31 PO; -FIBER PO; +FORM1NEB INH; -LACT10SO30 PO; -METR-163 PO; +NTRGSL/4 UT; +OXYB5TAB74 PO; +PANT40TA PO; +PHEN-876 PO; +PLMINSR5 INH; +PRVC10 PO; +PXL/10 PO; +TAMS0.4C38 PO; +VNCLRX PO; +VNCS250 PO
[2016-08-04 09:42] VITALS: TEMP 36.5; Ht 175.3 cm; Wt 109.0 kg
[2016-08-04 09:45] VITALS: O2SAT 98
[2016-08-04 10:04] LABS: HEMATOCRIT 37.9 % (42-52); MEAN CELL VOLUME 87.5 fL (80-100); MEAN CORPUSCULAR HEMOGLOBIN 30.5 pg (25-34); MEAN CORPUSCULAR HGB CONC 34.8 g/dl (32-36); RED BLOOD COUNT 4.33 M/uL (4.7-6.1); WHITE BLOOD COUNT 6.52 K/uL (4.8-10.8)
[2016-08-04 10:12] LABS: MEAN PLATELET VOLUME 9.5 fL (7.4-10.4); PLATELET COUNT 85 K/uL (130-400)
[2016-08-04 10:25] LABS: INR 1.1 (0.9-1.1); PARTIAL THROMBOPLASTIN RATIO 1.2; PROTHROMBIN TIME (PATIENT) 11.4 SECONDS (9.0-12.0)
[2016-08-04 10:30] LABS: BUN/CREATININE RATIO 18.4 (10-20); CALCIUM 10.2 mg/dl (8.5-10.1); CREATININE 1.3 mg/dl (0.60-1.40); POTASSIUM 4.4 mmol/L (3.5-5.1)
[2016-08-04 10:35] LABS: ALB/GLOB RATIO 0.9 (0.9-2); CKMB/CK RATIO 2.2 (0-3.0)
--- NOTE | 2016-08-04 10:45 | DIAGNOSTIC IMAGING REPORT ---
CHEST ONE VIEW PORTABLE CLINICAL HISTORY: Chest pain dyspnea COMPARISON STUDY: 04/20/2016 FINDINGS: Mild primary megaly. Vascular prominence. Diaphragms are smooth. There are no focal infiltrates. IMPRESSION: Mild congestive heart failure. Electronically signed by: Yayo Reyes M.D. 08/04/2016 10:43 AM Dictated Date/Time: 08/04/2016 10:43 AM
[2016-08-04] MEDS ORDERED: SODIUM CHLORIDE 0.9% 250ML 250 ML IV STA (10:55)
[2016-08-04] MEDS ORDERED: KETOROLAC TROMETHAMINE 30 MG/ML VIAL IV STA (10:55)
--- NOTE | 2016-08-04 11:49 | DIAGNOSTIC IMAGING REPORT ---
HEAD CT NONCONTRAST CT DOSE: 729.78 mGycm HISTORY: Mental status change left sided headed TECHNIQUE: Multiaxial CT images of the head were performed without the use of intravenous contrast. Comparison: 04/20/2016 Findings: The paranasal sinuses and mastoid air cells are clear. The calvarium and skull base are intact. The ventricles and sulci are within normal limits. There is no mass, hematoma, midline shift, or acute infarct. There are chronic small vessel changes as well as superimposed atrophy are there is no new or interval process. The ventricular system is midline. Impression: Chronic and age-related change. No acute process. Electronically signed by: Yayo Reyes M.D. 08/04/2016 11:48 AM Dictated Date/Time: 08/04/2016 11:43 AM
--- NOTE | 2016-08-04 12:26 | EMERGENCY ROOM VISIT NOTE ---
History Report prepared by Mary: Floyd Kaminski Under the Supervision of: Dr. Aime Sullivan D.O. First contact with patient: 10:40 Chief Complaint: CHEST PAIN Stated Complaint: NÚÑEZ, CHEST PAIN, WEAKNESS Nursing Triage Summary: Triage Note: pt reports "pain the whole way across my chest that went down my right and left arm and i couldn't move them at all and my heart was pounding at 0100 today, the pain woke me up." History of Present Illness The patient is a 76 year old male who presents to the Emergency Room with complaints of resolved chest pain that occurred at approximately 0100 last night. The patient notes that the pain was bilateral on his chest and radiated to the bilateral arms. He woke up with palpitations prior to the onset of the pain. The pain is rated 5/10 in severity. The patient has some weakness in his right arm. He had a stroke a few years ago and has had right sided weakness since then, although a scanning supervisor at bedside notes that the right arm appears weaker than baseline. The patient has been experiencing pounding headaches recently, worse on the left side. As per scanning supervisor, he had a severe headache one week ago. Source of History: patient, other (scanning supervisor) Onset: 0100 last night Position: chest (bilateral) Symptom Intensity: 5/10 Timing: resolved Associated Symptoms: + headache, + weakness Review of Systems See HPI for pertinent positives & negatives. A total of 10 systems reviewed and were otherwise negative. Past Medical & Surgical Medical Problems: (1) Asthma (2) Bradycardia (3) Calcaneal spur (4) Carpal tunnel syndrome (5) Clostridium difficile diarrhea (6) COPD (chronic obstructive pulmonary disease) (7) CVA (cerebral vascular accident) (8) Gout (9) Hypertension (10) Liver disease (11) Right ureteral calculus Family History Cancer FHx: hemochromatosis Heart disease Hypertension Social History Smoking Status: Former Smoker Alcohol Use: none Drug Use: none Marital Status: Housing Status: lives alone Occupation Status: retired Current/Historical Medications Scheduled Albuterol (Ventolin Hfa), 2 PUFFS INH QID Allopurinol (Allopurinol), 300 MG PO QAM Aspirin (Aspirin Chewable), 81 MG PO QAM Budesonide (Pulmicort Respules 0.5MG/2ML), 2 ML INH BID Carvedilol (Carvedilol), 6.25 MG PO BID Cinnamon (Cinnamon), 500 MG PO DAILY Formoterol Fumarate (Perforomist), 2 ML INH PRN UD Gabapentin (Neurontin), 300 MG PO HS Insulin Glargine (Toujeo Solostar), 45 UNITS INJ HS Levothyroxine Sodium (Synthroid), 50 MCG PO QAM Magnesium Oxide (Mag-Ox), 400 MG PO QAM Nitroglycerin (Nitrostat), 0.4 MG UT PRN Oxybutynin Chloride (Ditropan), 5 MG PO TID Pantoprazole Sodium (Protonix), 40 MG PO DAILY Paroxetine (Paroxetine HCl), 10 MG PO QAM Phenazopyridine HCl (Pyridium), 200 MG PO UD Pravastatin Sod (Pravastatin Sodium), 10 MG PO HS Tamsulosin Hcl (Flomax), 0.4 MG PO QAM Scheduled PRN Ipratropium-Albuterol (Combivent Respimat), 1 PUFFS INH QID PRN for Shortness of Breath Tramadol (Ultram), 50 MG PO Q8H PRN for Pain Miscellaneous Medications Insulin Human Lispro (Humalog), UNITS SQ Allergies Coded Allergies: Oxycodone (Verified Allergy, Mild, SHORTNESS OF BREATH, 08/04/16) wheezing ??? Dobutamine (Verified Allergy, Unknown, abd pain, 08/04/16) Iodinated Diagnostic Agents (Verified Allergy, Unknown, HIVES, 08/04/16) Meperidine (Verified Allergy, Unknown, ANAPHYLAXIS, 08/04/16) Perflutren (Verified Allergy, Unknown, abd pain, 08/04/16) Propylene Glycol (Verified Allergy, Unknown, abd pain, 08/04/16) Physical Exam Vital Signs Date Time Temp Pulse Resp B/P Pulse Ox O2 Delivery O2 Flow Rate FiO2 08/04/16 11:20 54 18 138/84 98 Room Air 08/04/16 09:50 53 08/04/16 09:46 99 Room Air 08/04/16 09:45 98 Room Air 08/04/16 09:42 36.5 55 20 143/97 97 Room Air Physical Exam CONSTITUTIONAL/VITAL SIGNS: Reviewed / noted above. GENERAL: Non-toxic in appearance. INTEGUMENTARY: Warm, dry, and [place]. HEAD: Normocephalic. EYES: without scleral icterus or trauma. ENT/OROPHARYNX: clear and moist. LYMPHADENOPATHY/NECK: Is supple without lymphadenopathy or meningismus. RESPIRATORY: Lungs clear and equal. CARDIOVASCULAR: Regular rate and rhythm. GI/ABDOMEN: Soft and nontender. No organomegaly or pulsatile mass. No rebound or guarding. Normal bowel sounds. EXTREMITIES: Warm and well perfused. BACK: No CVA tenderness. NEUROLOGICAL: Chronic right-sided weakness from previous stroke. PSYCHIATRIC: normal affect. MUSCULOSKELETAL: Normally developed with good muscle tone. Medical Decision & Procedures ER Provider Diagnostic Interpretation: Radiology results as stated below per my review and radiologist interpretation: CHEST ONE VIEW PORTABLE CLINICAL HISTORY: Chest pain dyspnea COMPARISON STUDY: 04/20/2016 FINDINGS: Mild primary megaly. Vascular prominence. Diaphragms are smooth. There are no focal infiltrates. IMPRESSION: Mild congestive heart failure. Electronically signed by: Yayo Reyes M.D. 08/04/2016 10:43 AM Dictated Date/Time: 08/04/2016 10:[address] NONCONTRAST CT DOSE: 729.78 mGycm HISTORY: Mental status change left sided headed TECHNIQUE: Multiaxial CT images of the head were performed without the use of intravenous contrast. Comparison: 04/20/2016 Findings: The paranasal sinuses and mastoid air cells are clear. The calvarium and skull base are intact. The ventricles and sulci are within normal limits. There is no mass, hematoma, midline shift, or acute infarct. There are chronic small vessel changes as well as superimposed atrophy are there is no new or interval process. The ventricular system is midline. Impression: Chronic and age-related change. No acute process. Electronically signed by: Yayo Reyes M.D. 08/04/2016 11:48 AM Dictated Date/Time: 08/04/2016 11:43 AM Laboratory Results 08/04/16 09:46 08/04/16 09:46 Test 08/04/16 09:46 08/04/16 09:58 Red Blood Count 4.33 M/uL (4.7-6.1) Mean Corpuscular Volume 87.5 fL (80-100) Mean Corpuscular Hemoglobin 30.5 pg (25-34) Mean Corpuscular Hemoglobin Concent 34.8 g/dl (32-36) RDW Standard Deviation 50.9 fL (36.4-46.3) RDW Coefficient of Variation 15.8 % (11.5-14.5) Mean Platelet Volume 9.5 fL (7.4-10.4) Prothrombin Time 11.4 SECONDS (9.0-12.0) Prothromb Time International Ratio 1.1 (0.9-1.1) Activated Partial Thromboplast Time 30.3 SECONDS (21.0-31.0) Partial Thromboplastin Ratio 1.2 Anion Gap 8.0 mmol/L (3-11) Est Creatinine Clear Calc Drug Dose 59.8 ml/min Estimated GFR () 61.9 Estimated GFR (Non- 53.4 BUN/Creatinine Ratio 18.4 (10-20) Calcium Level 10.2 mg/dl (8.5-10.1) Total Bilirubin 0.8 mg/dl (0.2-1) Aspartate Amino Transf (AST/SGOT) 22 U/L (15-37) Alanine Aminotransferase (ALT/SGPT) 28 U/L (12-78) Alkaline Phosphatase 73 U/L (45-117) Total Creatine Kinase 63 U/L (39-308) Creatine Kinase MB 1.4 ng/ml (0.5-3.6) Creatine Kinase MB Ratio 2.2 (0-3.0) Total Protein 7.4 gm/dl (6.4-8.2) Albumin 3.6 gm/dl (3.4-5.0) Globulin 3.8 gm/dl (2.5-4.0) Albumin/Globulin Ratio 0.9 (0.9-2) Bedside Troponin I 0.000 ng/ml (0-0.045) Laboratory results as stated above per my review. Medications Administered Medications (Trade) Dose Ordered Sig/Ronna Route Start Time Stop Time Status Last Admin Dose Admin Ketorolac Tromethamine 30 mg 30 mg NOW STAT IV 08/04/16 10:55 08/04/16 10:58 DC 08/04/16 11:18 30 MG Sodium Chloride (Nss 250ml) 250 ml @ 999 mls/hr Q16M STAT IV 08/04/16 10:55 08/04/16 11:10 DC 08/04/16 11:19 999 MLS/HR ECG Indication: chest pain Rate (beats per minute): 57 Rhythm: sinus bradycardia Findings: no acute ischemic change, no ectopy ED Course 1050: Previous medical records were reviewed. The patient was evaluated in room A10. A complete history and physical examination was performed. 1055: NSS 250 ml @ 999 mls/hr. 1220: Reassessed the patient. Discussed the results with him. He verbalized understanding and agreement. The patient is ready for discharge. Medical Decision Differential includes: Acute intracranial bleed, trauma, meningitis, encephalitis, increased intracranial pressure, mass or mass effect, facial or dental infection, temporal arteritis, CVA, TIA, acute hypertensive emergency, sinusitis, carbon monoxide exposure. This is a 76-year-old male who presents to the ED with a chief complaint of a sensation of heart pounding around 1 AM this morning. It lasted for about an hour. He also states that his arms and legs felt uncomfortable and weak. He woke up this morning and his heart rate was 76. He states that is fast for him. He was referred here by his PCP. He is not having any symptoms at this time. The patient reports previous CVA with chronic right-sided weakness. This is evident on exam. His exam is otherwise unremarkable and his vital signs are normal. CBC and complete metabolic panel were unremarkable with exception of the BUN of 24. Troponin is negative. EKG shows sinus bradycardia. Chest x-ray has been reviewed. After he was told the results of his tests, the family member stated that he is been having headaches as well as recently. CT scan of the brain did not show acute disease. There is no clinical findings to suggest heart failure. The patient was given some IV fluids as well as IV Toradol during his stay. He is told the results. He is felt to be stable for discharge. Impression Primary Impression: Palpitation Additional Impression: Headache Scribe Attestation The scribe's documentation has been prepared under my direction and personally reviewed by me in its entirety. I confirm that the note above accurately reflects all work, treatment, procedures, and medical decision making performed by me. Departure Information Dispostion Home / Self-Care Referrals No Doctor, Assigned (PCP) Forms HOME CARE DOCUMENTATION FORM, IMPORTANT VISIT INFORMATION Patient Instructions My [facility] Additional Instructions Follow-up with your doctor for further care and evaluation in 1-2 days. Return to the emergency department for worsening or new symptoms or any concerns. You have been examined and treated today on an emergency basis only. This is not a substitute for, or an effort to provide, complete comprehensive medical care. It is impossible to recognize and treat all injuries or illnesses in a single emergency department visit. It is therefore important that you follow up closely with your doctor. Call as soon as possible for an appointment. Problem Qualifiers
[2016-08-04 13:01] VITALS: BP 123/77; PULSE 48; O2SAT 98
[2016-09-06] MEDS ORDERED: MECL1TAB42 PO (23:01)
[2016-09-06] MEDS ORDERED: ATOR-24 PO (23:01)
[2016-12-26] MEDS ORDERED: CARV3.12 PO (09:31)
[2016-12-26] MEDS ORDERED: VITAMIN B12 INJ (09:31)
[2016-12-26] MEDS ORDERED: LACT10SO17 PO (09:31)
[2016-12-26] MEDS ORDERED: ASPI81TA28 PO (09:31)
[2016-12-26] MEDS ORDERED: THIA100T46 PO (09:35)
[2016-12-26] MEDS ORDERED: CALC625T13 PO (09:36)
[2016-12-26] MEDS ORDERED: CHOL1CAP57 PO (09:37)
[2017-01-09] MEDS ORDERED: CIPR-255 PO (09:54)
[2017-01-09] MEDS ORDERED: PHEN-775 PO (09:54)
[2017-01-09] MEDS ORDERED: HYDR-3419 PO (09:54)
== END 2016-08-04 13:03 | disposition home or self-care (01) ==
LOC: C.EDB 09:34 → C.EDA 13:03
DX: R00.2 Palpitations (principal); R51 Headache; J45.909 Unspecified asthma, uncomplicated; J44.9 Chronic obstructive pulmonary disease, unspecified; Z86.73 Personal history of transient ischemic attack (TIA), and cerebral infarction without residual deficits; I10 Essential (primary) hypertension; R74.0 Nonspecific elevation of levels of transaminase and lactic acid dehydrogenase [LDH]; M10.9 Gout, unspecified; K76.9 Liver disease, unspecified; Z87.442 Personal history of urinary calculi; Z80.9 Family history of malignant neoplasm, unspecified; Z82.49 Family history of ischemic heart disease and other diseases of the circulatory system; Z87.891 Personal history of nicotine dependence; Z79.82 Long term (current) use of aspirin; Z79.899 Other long term (current) drug therapy

== ENCOUNTER 2016-09-06 20:45 | Emergency (ER) | payer OTHER, MEDICARE ==
[~2016-09-06] VITALS: Ht 172.7 cm; Wt 108.0 kg
[~2016-09-06 20:45] MED LIST changes: -ALL300 PO; +DTR/5 PO; -FORM1NEB INH; -GABA-113 PO; -LEVO50TA PO; -MAGN400T6 PO; -NTRGSL/4 UT; -OXYB5TAB74 PO; -PANT40TA PO; -PLMINSR5 INH; -PXL/10 PO; -TAMS0.4C38 PO; -VNCLRX PO; -VNCS250 PO
[2016-09-06 21:03] VITALS: TEMP 36.6; Ht 172.7 cm; Wt 108.0 kg
[2016-09-06] MEDS ORDERED: MoRPHine SULFATE 4 MG/ML 1 ML CARP\\VIAL IM STA (21:20)
[2016-09-06] MEDS ORDERED: HYDR-3983 PO (22:27)
--- NOTE | 2016-09-06 22:29 | EMERGENCY ROOM VISIT NOTE ---
History Report prepared by Mary: Jef Moreira Under the Supervision of: Dr. Aime Sullivan D.O. First contact with patient: 21:15 Chief Complaint: BACK PAIN Stated Complaint: BAD BACK PAIN History of Present Illness The patient is a 76 year old male who presents to the Emergency Room with complaints of persistent lower back pain beginning earlier today. He notes he was using his tractor and drove up on a wall causing him to be zay around, but he denies falling off the tractor or losing consciousness. His pain is worsened with movement. Source of History: patient Onset: earlier today Position: back (lower) Quality: other (back pain) Timing: other (persistent) Modifying Factors (Worsening): movement Associated Symptoms: No LOC Review of Systems See HPI for pertinent positives & negatives. A total of 10 systems reviewed and were otherwise negative. Past Medical & Surgical Medical Problems: (1) Asthma (2) Bradycardia (3) Calcaneal spur (4) Carpal tunnel syndrome (5) Clostridium difficile diarrhea (6) COPD (chronic obstructive pulmonary disease) (7) CVA (cerebral vascular accident) (8) Gout (9) Hypertension (10) Liver disease (11) Right ureteral calculus Family History Cancer FHx: hemochromatosis Heart disease Hypertension Social History Smoking Status: Never Smoker Alcohol Use: none Drug Use: none Marital Status: Housing Status: lives alone Occupation Status: retired Current/Historical Medications Scheduled Allopurinol (Allopurinol), 300 MG PO QAM Atorvastatin (Lipitor), 40 MG PO QAM Budesonide (Pulmicort Respules 0.5MG/2ML), 2 ML INH BID Carvedilol (Carvedilol), 12.5 MG PO QAM Finasteride (Proscar), 5 MG PO QPM Formoterol Fumarate (Perforomist), 2 ML INH BID Gabapentin (Neurontin), 300 MG PO QPM Insulin Glargine (Toujeo Solostar), 20 UNITS INJ HS Lactulose (Encephalopathy) (Lactulose), 30 ML PO BID Levothyroxine Sodium (Synthroid), 50 MCG PO QAM Magnesium Oxide (Mag-Ox), 400 MG PO QAM Nitroglycerin (Nitrostat), 0.4 MG UT PRN Pantoprazole Sodium (Protonix), 40 MG PO QPM Paroxetine (Paroxetine HCl), 10 MG PO QAM Tamsulosin Hcl (Flomax), 0.4 MG PO QPM Scheduled PRN Meclizine Hcl (Meclizine Hcl), 1 TAB PO Q6H PRN for Dizziness or Vertigo Allergies Coded Allergies: Oxycodone (Verified Allergy, Mild, SHORTNESS OF BREATH, 09/06/16) wheezing ??? Dobutamine (Verified Allergy, Unknown, abd pain, 09/06/16) Iodinated Diagnostic Agents (Verified Allergy, Unknown, HIVES, 09/06/16) Meperidine (Verified Allergy, Unknown, ANAPHYLAXIS, 09/06/16) Perflutren (Verified Allergy, Unknown, abd pain, 09/06/16) Propylene Glycol (Verified Allergy, Unknown, abd pain, 09/06/16) Physical Exam Vital Signs Date Time Temp Pulse Resp B/P Pulse Ox O2 Delivery O2 Flow Rate FiO2 09/06/16 22:59 50 18 131/86 100 Room Air 09/06/16 21:03 36.6 52 20 145/76 99 Room Air Physical Exam CONSTITUTIONAL/VITAL SIGNS: Reviewed / noted above. GENERAL: Non-toxic in appearance. INTEGUMENTARY: Warm, dry, and [place]. HEAD: Normocephalic. EYES: without scleral icterus or trauma. ENT/OROPHARYNX: clear and moist. LYMPHADENOPATHY/NECK: Is supple without lymphadenopathy or meningismus. RESPIRATORY: Lungs clear and equal. CARDIOVASCULAR: Regular rate and rhythm. GI/ABDOMEN: Soft and nontender. No organomegaly or pulsatile mass. No rebound or guarding. Normal bowel sounds. EXTREMITIES: Warm and well perfused. BACK: Tenderness to the lumbar region diffusely, midline and paraspinal musculature. NEUROLOGICAL: Intact without focal deficits. PSYCHIATRIC: normal affect. MUSCULOSKELETAL: Normally developed with good muscle tone. Medical Decision & Procedures ER Provider Diagnostic Interpretation: Radiology results as stated below per my review and radiologist interpretation: CT SCAN OF LUMBAR SPINE WITHOUT IV CONTRAST FINDINGS: The skeletal structures are osteopenic. There is a mild acute superior endplate compression fracture of T12. Minimal paravertebral edema is noted at this level. There is no evidence of fracture or subluxation involving the lumbar spine. Vertebral body height and alignment are maintained throughout the lumbar spine. The transverse and spinous processes appear intact. There is no spondylolysis. No lytic or blastic lesions are seen. Mild facet arthropathy is noted in the lower lumbar region. There is calcification of the posterior paraspinous as well as the interspinous ligaments. Mild degenerative disc space narrowing seen throughout the lumbar spine. Posterior disc osteophyte complexes are noted at L2-L3, L3-L4, L4-L5, and L5-S1. There is no evidence of large disc herniation. The visualized sacrum and bony pelvis appear intact. The paraspinous soft tissues are within normal limits. There is moderate atherosclerotic calcification of the abdominal aorta. IMPRESSION: 1. There is a mild acute compression fracture of T12. No retropulsed fragments are identified. 2. There is no evidence of fracture or malalignment involving the lumbosacral spine 3. Osteopenia and spondylotic change as above. Electronically signed by: Derrek Silva M.D. 09/06/2016 10:33 PM Dictated Date/Time: 09/06/2016 10:27 PM Medications Administered Medications (Trade) Dose Ordered Sig/Ronna Route Start Time Stop Time Status Last Admin Dose Admin Morphine Sulfate (MoRPHine SULFATE INJ) 4 mg NOW STAT IM 09/06/16 21:20 09/06/16 21:21 DC 09/06/16 21:39 4 MG ED Course 2116: Previous medical records were reviewed. The patient was evaluated in room A2. A complete history and physical examination was performed. 2119: Ordered Morphine Sulfate 4 mg IM. 5: On reevaluation, the patient is doing well. I discussed the results and findings with the patient. He verbalized agreement of the treatment plan. The patient was discharged home. Medical Decision Differential considered includes cauda equina syndrome, conus medullaris, spinal cord compression syndrome, peripheral nerve compression, fractures or subluxations, intra-abdominal pathology such as abdominal aortic aneurysm or kidney stones, muscle strain, transverse myelitis, spinal cord injury. This is a 76-year-old male who presents to the ED with a chief complaint of low back pain. The patient states that he was riding his lawnmower and it almost tipped over. When it dropped back onto its wheels chart his low back. He presents with a complaint of low back pain. Exam reveals tenderness to the paraspinal musculature of the low back as well as the midline. No obvious deformities are palpated. No other injuries are observed on exam. He has no other complaints of pain. CT scan lumbar spine did not reveal fracture or dislocation. The patient was told the results of the test. He was treated with morphine IM. He was discharged on hydrocodone. He is felt to be stable for discharge and outpatient follow-up. Impression Primary Impression: Low back strain Additional Impression: Compression fracture Scribe Attestation The scribe's documentation has been prepared under my direction and personally reviewed by me in its entirety. I confirm that the note above accurately reflects all work, treatment, procedures, and medical decision making performed by me. Departure Information Dispostion Home / Self-Care Referrals Domo Alanis D.O. (PCP) Patient Instructions ED Fx Comp Vertebral, Low Back Pain Self Care, My [facility] Additional Instructions [place] as prescribed. No driving within 6 hours of use. May cause drowsiness and constipation. Do not take Tylenol when taking [place]. Follow-up with your doctor for further care and evaluation in 1-6 days if symptoms persist. Return to the emergency department for worsening or new symptoms or any concerns. You have been examined and treated today on an emergency basis only. This is not a substitute for, or an effort to provide, complete comprehensive medical care. It is impossible to recognize and treat all injuries or illnesses in a single emergency department visit. It is therefore important that you follow up closely with your doctor. Call as soon as possible for an appointment. Problem Qualifiers
--- NOTE | 2016-09-06 22:35 | DIAGNOSTIC IMAGING REPORT ---
CT SCAN OF LUMBAR SPINE WITHOUT IV CONTRAST CLINICAL HISTORY: Fall with low back pain. COMPARISON STUDY: CT scan of the abdomen and pelvis dated 06/27/2016 and lumbar spine radiographs dated 01/18/2016 TECHNIQUE: CT scan of lumbar spine is performed from the lower thoracic spine to the sacrum. Images reviewed in the axial, sagittal, coronal planes. IV contrast was not administered for this examination. CT DOSE: 2107.29 mGy.cm FINDINGS: The skeletal structures are osteopenic. There is a mild acute superior endplate compression fracture of T12. Minimal paravertebral edema is noted at this level. There is no evidence of fracture or subluxation involving the lumbar spine. Vertebral body height and alignment are maintained throughout the lumbar spine. The transverse and spinous processes appear intact. There is no spondylolysis. No lytic or blastic lesions are seen. Mild facet arthropathy is noted in the lower lumbar region. There is calcification of the posterior paraspinous as well as the interspinous ligaments. Mild degenerative disc space narrowing seen throughout the lumbar spine. Posterior disc osteophyte complexes are noted at L2-L3, L3-L4, L4-L5, and L5-S1. There is no evidence of large disc herniation. The visualized sacrum and bony pelvis appear intact. The paraspinous soft tissues are within normal limits. There is moderate atherosclerotic calcification of the abdominal aorta. IMPRESSION: 1. There is a mild acute compression fracture of T12. No retropulsed fragments are identified. 2. There is no evidence of fracture or malalignment involving the lumbosacral spine 3. Osteopenia and spondylotic change as above. Electronically signed by: Derrek Silva M.D. 09/06/2016 10:33 PM Dictated Date/Time: 09/06/2016 10:27 PM
[2016-09-06 22:59] VITALS: BP 131/86; PULSE 50; O2SAT 100
[2016-09-06] MEDS ORDERED: LACT10SO30 PO (23:01)
[2016-09-06] MEDS ORDERED: CRG125 PO (23:01)
[2016-09-06] MEDS ORDERED: FINA5TAB PO (23:01)
[2016-12-26] MEDS ORDERED: VITAMIN B12 INJ (09:31)
[2016-12-26] MEDS ORDERED: LACT10SO17 PO (09:31)
[2017-01-09] MEDS ORDERED: HYDR-3419 PO (09:54)
[2017-01-09] MEDS ORDERED: PHEN-775 PO (09:54)
[2017-01-09] MEDS ORDERED: CIPR-255 PO (09:54)
[2017-04-06] MEDS ORDERED: ASPI81TA28 PO (09:31)
[2017-04-06] MEDS ORDERED: CARV3.12 PO (09:31)
[2017-04-06] MEDS ORDERED: THIA100T46 PO (09:35)
[2017-04-06] MEDS ORDERED: CALC625T13 PO (09:36)
[2017-04-06] MEDS ORDERED: CHOL1CAP57 PO (09:37)
[2017-04-06] MEDS ORDERED: MAGN400T6 PO (13:06)
[2017-04-06] MEDS ORDERED: LEVO50TA PO (13:30)
[2017-04-06] MEDS ORDERED: ALL300 PO (13:30)
[2017-04-06] MEDS ORDERED: GABA-113 PO (14:44)
[2017-04-06] MEDS ORDERED: NTRGSL/4 UT (14:47)
== END 2016-09-06 23:01 | disposition home or self-care (01) ==
LOC: C.EDB 20:53 → C.EDA 23:01
DX: S39.012A Strain of muscle, fascia and tendon of lower back, initial encounter (principal); S22.080A Wedge compression fracture of T11-T12 vertebra, initial encounter for closed fracture; X50.1XXA Overexertion from prolonged static or awkward postures, initial encounter; J45.909 Unspecified asthma, uncomplicated; R00.1 Bradycardia, unspecified; M77.30 Calcaneal spur, unspecified foot; G56.00 Carpal tunnel syndrome, unspecified upper limb; J44.9 Chronic obstructive pulmonary disease, unspecified; I10 Essential (primary) hypertension; Z86.73 Personal history of transient ischemic attack (TIA), and cerebral infarction without residual deficits; Z87.442 Personal history of urinary calculi; Z83.2 Family history of diseases of the blood and blood-forming organs and certain disorders involving the immune mechanism; Z82.49 Family history of ischemic heart disease and other diseases of the circulatory system; Z79.82 Long term (current) use of aspirin; Z79.4 Long term (current) use of insulin

== ENCOUNTER 2016-09-13 08:25 | Inpatient (IN) | payer OTHER, MEDICARE ==
[2016-09-13] VITALS (8 sets, daily range): BP systolic 125–142; BP diastolic 70–84; PULSE 52–79; TEMP 36.4–36.5; O2SAT 92–99; Ht 170.2 cm; Wt 104.8 kg
[~2016-09-13] VITALS: Ht 170.2 cm; Wt 104.8 kg
[~2016-09-13 08:25] MED LIST changes: -ASPCH81X PO; -CINN1CAP2 PO; +CRG125 PO; -CRG625 PO; -DTR/5 PO; +FINA5TAB PO; -INSPMPHMLG SQ; -IPRA1AER2 INH; +LACT10SO30 PO; -PHEN-876 PO; -PRVC10 PO; -PRVHFAIN INH; -TRAM-10 PO
[2016-09-13] MEDS ORDERED: SODIUM CHLORIDE 0.9% 500ML 500 ML IV STA (08:41)
--- NOTE | 2016-09-13 08:42 | EMERGENCY ROOM VISIT NOTE ---
History Report prepared by Mary: Eileen Wynne Under the Supervision of: Dr. Aime Victoria M.D. First contact with patient: 08:34 Chief Complaint: FALL Stated Complaint: FALL History of Present Illness The patient is a 76 year old male who presents to the Emergency Room with complaints of a sudden fall that occurred prior to arrival. He currently rates his discomfort as an 8/10 in severity. The patient states that two weeks ago he fell and sustained a T12 compression fracture. The patient notes that this morning he was walking to the bathroom when he suddenly fell hitting his head and back. He associates head pain and back pain with his symptoms today. The patient states that he lives alone at home and denies going to physical therapy. The patient states that he took Reva this morning for his discomfort. Source of History: patient Onset: prior to arrival Position: other (global) Symptom Intensity: 8/10 Quality: other (fall) Timing: other (sudden) Associated Symptoms: + back pain Note: Associated Symptoms: head pain Review of Systems See HPI for pertinent positives & negatives. A total of 10 systems reviewed and were otherwise negative. Past Medical & Surgical Medical Problems: (1) Asthma (2) Bradycardia (3) Calcaneal spur (4) Carpal tunnel syndrome (5) Clostridium difficile diarrhea (6) COPD (chronic obstructive pulmonary disease) (7) CVA (cerebral vascular accident) (8) Gout (9) Hepatic encephalopathy (10) Hypertension (11) Liver disease (12) Right ureteral calculus Family History Cancer FHx: hemochromatosis Heart disease Hypertension Social History Smoking Status: Never Smoker Alcohol Use: none Drug Use: none Marital Status: Housing Status: lives alone Occupation Status: retired Current/Historical Medications Scheduled Allopurinol (Allopurinol), 300 MG PO QAM Atorvastatin (Lipitor), 40 MG PO QAM Budesonide (Pulmicort Respules 0.5MG/2ML), 2 ML INH BID Carvedilol (Carvedilol), 12.5 MG PO QAM Finasteride (Proscar), 5 MG PO QPM Formoterol Fumarate (Perforomist), 2 ML INH BID Gabapentin (Neurontin), 300 MG PO QPM Insulin Glargine (Toujeo Solostar), 20 UNITS INJ HS Lactulose (Encephalopathy) (Lactulose), 30 ML PO BID Levothyroxine Sodium (Synthroid), 50 MCG PO QAM Magnesium Oxide (Mag-Ox), 400 MG PO QAM Naproxen (Aleve), 220 MG PO DAILY Nitroglycerin (Nitrostat), 0.4 MG UT PRN Pantoprazole Sodium (Protonix), 40 MG PO QPM Paroxetine (Paroxetine HCl), 10 MG PO QAM Tamsulosin Hcl (Flomax), 0.4 MG PO QPM Scheduled PRN Hydrocodone/Acetaminophen 7.5MG/325MG (Reva 7.5MG/325MG), 1 TAB PO Q6H PRN for Pain Meclizine Hcl (Meclizine Hcl), 1 TAB PO Q6H PRN for Dizziness or Vertigo Allergies Coded Allergies: Oxycodone (Verified Allergy, Mild, SHORTNESS OF BREATH, 09/13/16) wheezing ??? Dobutamine (Verified Allergy, Unknown, abd pain, 09/13/16) Iodinated Diagnostic Agents (Verified Allergy, Unknown, HIVES, 09/13/16) Meperidine (Verified Allergy, Unknown, ANAPHYLAXIS, 09/13/16) Perflutren (Verified Allergy, Unknown, abd pain, 09/13/16) Propylene Glycol (Verified Allergy, Unknown, abd pain, 09/13/16) Physical Exam Vital Signs Date Time Temp Pulse Resp B/P Pulse Ox O2 Delivery O2 Flow Rate FiO2 09/13/16 11:30 99 Room Air 09/13/16 10:59 60 09/13/16 10:43 37.2 60 152/87 99 09/13/16 08:41 99 09/13/16 08:41 99 Room Air 09/13/16 08:34 36.6 62 20 170/90 98 Room Air Physical Exam GENERAL: Patient is a healthy-appearing well-nourished HEAD: Normocephalic atraumatic EYES: Ocular movements intact pupils equal and react to light OROPHARYNX mucous membranes are moist no exudates present no erythema or edema present NECK: Supple no nuchal rigidity CHEST: Good equal expansion LUNGS: Clear and equal to auscultation CARDIAC: Normal S1 and S2 ABDOMEN: Soft nontender no guarding BACK: Tender to the T12 area. EXTREMITIES: No pain upon palpation normal muscle strength in all groups no clubbing cyanosis or edema NEURO: Patient is following commands is answering questions appropriately. Alert and oriented x3 Cranial Nerves 2-12 grossly intact Medical Decision & Procedures ER Provider Diagnostic Interpretation: CT results as stated below per my review and radiologist interpretation: THORACIC SPINE CT CT DOSE: HISTORY: Pt c/o low back pain s/p fall TECHNIQUE: Multiaxial CT images of the thoracic spine were performed and reformatted in the sagittal and coronal plane without the use of contrast. COMPARISON: Lumbar spine CT 09/06/2016. FINDINGS: No change in the mild superior endplate compression fracture at T12. No associated retropulsion. No additional fractures identified within the thoracic spine. Mild degenerative disc disease seen throughout the thoracic spine. No significant central canal narrowing by CT technique. Paraspinal soft tissues are unremarkable. IMPRESSION: No change in the mild superior endplate compression fracture at T12. No additional fractures identified within the thoracic spine. Electronically signed by: Baldemar Temple M.D. 09/13/2016 9:43 AM Dictated Date/Time: 09/13/2016 9:[address] SCAN OF LUMBAR SPINE WITHOUT IV CONTRAST CLINICAL HISTORY: Fall with low back pain. COMPARISON STUDY: CT scan of the lumbar spine dated 09/06/2016 TECHNIQUE: CT scan of lumbar spine is performed from the lower thoracic spine to the sacrum. Images reviewed in the axial, sagittal, coronal planes. IV contrast was not administered for this examination. FINDINGS: The skeletal structures are osteopenic. Again seen is a mild subacute superior endplate compression fracture of T12, which was also seen on 09/06/2016. Minimal paravertebral edema is noted at this level. There is no evidence of fracture or subluxation involving the lumbar spine. Vertebral body height and alignment are maintained throughout the lumbar spine. The transverse and spinous processes appear intact. There is no spondylolysis. No lytic or blastic lesions are seen. Mild facet arthropathy is noted in the lower lumbar region. There is calcification of the posterior paraspinous as well as the interspinous ligaments. Mild degenerative disc space narrowing seen throughout the lumbar spine. Posterior disc osteophyte complexes are noted at L2-L3, L3-L4, L4-L5, and L5-S1. There is no evidence of large disc herniation. The visualized sacrum and bony pelvis appear intact. The paraspinous soft tissues are within normal limits. There is moderate atherosclerotic calcification of the abdominal aorta. IMPRESSION: 1. There is a mild subacute compression fracture of T12, unchanged from study performed 1 week previously. No retropulsed fragments are identified. 2. There is no evidence of fracture or malalignment involving the lumbosacral spine 3. Osteopenia and spondylotic change as above. Electronically signed by: Derrek Silva M.D. 09/13/2016 9:42 AM Dictated Date/Time: 09/13/2016 9:[address] SCAN OF THE BRAIN WITHOUT IV CONTRAST CLINICAL HISTORY: Fall with head injury. COMPARISON STUDY: CT of the brain dated 08/04/2016. TECHNIQUE: Unenhanced axial CT scan of the brain is performed from the vertex to the skull base. CT DOSE: 4041.64 mGy.cm FINDINGS: Brain parenchyma: There are age-related involutional changes noting mild subcortical and periventricular microangiopathic change. There is no hemorrhage, mass effect, or evidence of acute territorial ischemia by CT criteria. Mineralization is noted in the basal ganglia. Schultz-white matter is preserved. No extra-axial fluid collection is seen. Ventricles, sulci, cisterns: Prominent secondary to involutional change. Intracranial vasculature: There is atherosclerotic calcification of the cavernous carotid and vertebral arteries. Calvarium: The skeletal structures are osteopenic. There is no depressed calvarial fracture. Sinuses and mastoids: Trace mucosal thickening is seen within the maxillary antra. The remaining visualized paranasal sinuses are clear. The mastoid air cells are well pneumatized. Orbits: The bony orbits are grossly intact. There are bilateral ocular lens implants. IMPRESSION: There is no hemorrhage, mass effect, or evidence of acute territorial ischemia by CT criteria. Electronically signed by: Derrek Silva M.D. 09/13/2016 9:37 AM Dictated Date/Time: 09/13/2016 9:35 AM Laboratory Results 09/13/16 08:50 Red Blood Count 4.42, Mean Corpuscular Volume 88.7, Mean Corpuscular Hemoglobin 31.2, Mean Corpuscular Hemoglobin Concent 35.2, Mean Platelet Volume 9.1, Neutrophils (%) (Auto) 61.3, Lymphocytes (%) (Auto) 22.6, Monocytes (%) (Auto) 9.1, Eosinophils (%) (Auto) 6.0, Basophils (%) (Auto) 0.6, Neutrophils # (Auto) 4.16, Lymphocytes # (Auto) 1.54, Monocytes # (Auto) 0.62, Eosinophils # (Auto) 0.41, Basophils # (Auto) 0.04 Test 09/13/16 08:50 White Blood Count 6.80 K/uL (4.8-10.8) Red Blood Count 4.42 M/uL (4.7-6.1) Hemoglobin 13.8 g/dL (14.0-18.0) Hematocrit 39.2 % (42-52) Mean Corpuscular Volume 88.7 fL (80-100) Mean Corpuscular Hemoglobin 31.2 pg (25-34) Mean Corpuscular Hemoglobin Concent 35.2 g/dl (32-36) Platelet Count 91 K/uL (130-400) Mean Platelet Volume 9.1 fL (7.4-10.4) Neutrophils (%) (Auto) 61.3 % Lymphocytes (%) (Auto) 22.6 % Monocytes (%) (Auto) 9.1 % Eosinophils (%) (Auto) 6.0 % Basophils (%) (Auto) 0.6 % Neutrophils # (Auto) 4.16 K/uL (1.4-6.5) Lymphocytes # (Auto) 1.54 K/uL (1.2-3.4) Monocytes # (Auto) 0.62 K/uL (0.11-0.59) Eosinophils # (Auto) 0.41 K/uL (0-0.5) Basophils # (Auto) 0.04 K/uL (0-0.2) RDW Standard Deviation 49.7 fL (36.4-46.3) RDW Coefficient of Variation 15.3 % (11.5-14.5) Immature Granulocyte % (Auto) 0.4 % Immature Granulocyte # (Auto) 0.03 K/uL (0.00-0.02) Platelet Estimate DECREASED Magnesium Level 1.8 mg/dl (1.8-2.4) Total Bilirubin 1.4 mg/dl (0.2-1) Direct Bilirubin 0.4 mg/dl (0-0.2) Aspartate Amino Transf (AST/SGOT) 18 U/L (15-37) Alanine Aminotransferase (ALT/SGPT) 25 U/L (12-78) Alkaline Phosphatase 86 U/L (45-117) Total Creatine Kinase 48 U/L (39-308) Creatine Kinase MB 1.3 ng/ml (0.5-3.6) Creatine Kinase MB Ratio 2.7 (0-3.0) Total Protein 7.0 gm/dl (6.4-8.2) Albumin 3.8 gm/dl (3.4-5.0) Labs reviewed by ED physician. Medications Administered Medications (Trade) Dose Ordered Sig/Ronna Route Start Time Stop Time Status Last Admin Dose Admin Sodium Chloride (Nss 500ml) 500 ml @ 999 mls/hr Q31M STAT IV 09/13/16 08:41 09/13/16 09:11 DC 09/13/16 08:41 999 MLS/HR Morphine Sulfate (MoRPHine SULFATE INJ) 4 mg NOW STAT IV 09/13/16 10:01 09/13/16 10:05 DC 09/13/16 10:28 4 MG Ondansetron HCl (Zofran Inj) 4 mg NOW STAT IV 09/13/16 10:01 09/13/16 10:05 DC 09/13/16 10:28 4 MG Lactulose (Chronulac Syrup) 30 gm BID PO 09/13/16 11:30 10/13/16 11:29 09/14/16 07:53 30 GM Lidocaine (Lidoderm Patch 5%) 2 patch QAM TD 09/13/16 11:30 10/13/16 11:29 09/14/16 07:55 2 PATCH Hydromorphone HCl (Dilaudid Inj) 0.5 mg Q4H PRN IV 09/13/16 11:30 09/27/16 11:29 09/14/16 13:27 0.5 MG Thiamine HCl (Vitamin B-1 Tab) 200 mg BID PO 09/13/16 11:30 09/14/16 08:59 DC 09/13/16 20:57 200 MG ED Course 0835: Past medical records reviewed. The patient was evaluated in room A3. A complete history and physical examination was performed. 0841: Ordered Sodium Chloride 500 ml @ 999 mls/hr IV. 1000: I reevaluated the patient and he is resting. I discussed the exam findings with him and his family and I discussed the treatment plan. He verbalized complete understanding and agreement. The patient will be evaluated for further treatment. 1001: Ordered Zofran Inj 4 mg IV, Morphine Sulfate 4 mg IV. 1010: I discussed the patients case with ADAIR Arboleda. He is going to evaluate the patient for further treatment. Medical Decision Differential diagnosis: Etiologies such as fracture, dislocation, intra-abdominal, pneumothorax, intrathoracic , intracranial, neurologic, as well as other traumatic pathologies were entertained. This is a 76-year-old male who presents emergency department complaining of right sided weakness along with a fall. The patient reports he has been having issues similar to when he had his last TIA. His symptoms have been ongoing for greater than 3 hours therefore stroke alert was not initiated. I did discuss the case with the hospitalist service who agreed to admit the patient. Patient and family were in agreement with the treatment plan. Consults Time Called: 1002 Consulting Physician: ADAIR Arboleda Returned Call: [phone] I discussed the patients case with ADAIR Arboleda. He is going to evaluate the patient for further treatment. Impression Primary Impression: Right sided weakness Additional Impression: Back pain Scribe Attestation The scribe's documentation has been prepared under my direction and personally reviewed by me in its entirety. I confirm that the note above accurately reflects all work, treatment, procedures, and medical decision making performed by me. Departure Information Dispostion Being Evaluated By Hospitalist Referrals No Doctor, Assigned (PCP) Problem Qualifiers Additional Impression: Back pain Back pain location: low back pain Chronicity: unspecified Back pain laterality: unspecified Sciatica presence: without sciatica Qualified Codes : M54.5 - Low back pain
[2016-09-13 09:00] LABS: HEMATOCRIT 39.2 % (42-52); MEAN CELL VOLUME 88.7 fL (80-100); MEAN CORPUSCULAR HEMOGLOBIN 31.2 pg (25-34); MEAN CORPUSCULAR HGB CONC 35.2 g/dl (32-36); RED BLOOD COUNT 4.42 M/uL (4.7-6.1)
[2016-09-13 09:04] LABS: MEAN PLATELET VOLUME 9.1 fL (7.4-10.4); PLATELET COUNT 91 K/uL (130-400)
[2016-09-13 09:28] LABS: BASO % 0.6 %; BASO ABS # 0.04 K/uL (0-0.2); COMPLETE YES; IG% 0.4 %; LYMPH % 22.6 %; LYMPH ABS # 1.54 K/uL (1.2-3.4); MONO % 9.1 %; NEUT % 61.3 %; PLT ESTIMATE DECREASED
[2016-09-13 09:37] LABS: ALT/SGPT 25 U/L (12-78); BLOOD UREA NITROGEN 28 mg/dl (7-18); BUN/CREATININE RATIO 19.7 (10-20); CALCIUM 9.9 mg/dl (8.5-10.1); CARBON DIOXIDE 24 mmol/L (21-32); CHLORIDE 108 mmol/L (98-107); GLUCOSE 167 mg/dl (70-99); POTASSIUM 4.2 mmol/L (3.5-5.1); SODIUM 140 mmol/L (136-145)
--- NOTE | 2016-09-13 09:39 | DIAGNOSTIC IMAGING REPORT ---
CT SCAN OF THE BRAIN WITHOUT IV CONTRAST CLINICAL HISTORY: Fall with head injury. COMPARISON STUDY: CT of the brain dated 08/04/2016. TECHNIQUE: Unenhanced axial CT scan of the brain is performed from the vertex to the skull base. CT DOSE: 4041.64 mGy.cm FINDINGS: Brain parenchyma: There are age-related involutional changes noting mild subcortical and periventricular microangiopathic change. There is no hemorrhage, mass effect, or evidence of acute territorial ischemia by CT criteria. Mineralization is noted in the basal ganglia. Schultz-white matter is preserved. No extra-axial fluid collection is seen. Ventricles, sulci, cisterns: Prominent secondary to involutional change. Intracranial vasculature: There is atherosclerotic calcification of the cavernous carotid and vertebral arteries. Calvarium: The skeletal structures are osteopenic. There is no depressed calvarial fracture. Sinuses and mastoids: Trace mucosal thickening is seen within the maxillary antra. The remaining visualized paranasal sinuses are clear. The mastoid air cells are well pneumatized. Orbits: The bony orbits are grossly intact. There are bilateral ocular lens implants. IMPRESSION: There is no hemorrhage, mass effect, or evidence of acute territorial ischemia by CT criteria. Electronically signed by: Derrek Silva M.D. 09/13/2016 9:37 AM Dictated Date/Time: 09/13/2016 9:35 AM
[2016-09-13 09:40] LABS: ALKALINE PHOSPHATASE 86 U/L (45-117); AST/SGOT 18 U/L (15-37)
--- NOTE | 2016-09-13 09:44 | DIAGNOSTIC IMAGING REPORT ---
CT SCAN OF LUMBAR SPINE WITHOUT IV CONTRAST CLINICAL HISTORY: Fall with low back pain. COMPARISON STUDY: CT scan of the lumbar spine dated 09/06/2016 TECHNIQUE: CT scan of lumbar spine is performed from the lower thoracic spine to the sacrum. Images reviewed in the axial, sagittal, coronal planes. IV contrast was not administered for this examination. FINDINGS: The skeletal structures are osteopenic. Again seen is a mild subacute superior endplate compression fracture of T12, which was also seen on 09/06/2016. Minimal paravertebral edema is noted at this level. There is no evidence of fracture or subluxation involving the lumbar spine. Vertebral body height and alignment are maintained throughout the lumbar spine. The transverse and spinous processes appear intact. There is no spondylolysis. No lytic or blastic lesions are seen. Mild facet arthropathy is noted in the lower lumbar region. There is calcification of the posterior paraspinous as well as the interspinous ligaments. Mild degenerative disc space narrowing seen throughout the lumbar spine. Posterior disc osteophyte complexes are noted at L2-L3, L3-L4, L4-L5, and L5-S1. There is no evidence of large disc herniation. The visualized sacrum and bony pelvis appear intact. The paraspinous soft tissues are within normal limits. There is moderate atherosclerotic calcification of the abdominal aorta. IMPRESSION: 1. There is a mild subacute compression fracture of T12, unchanged from study performed 1 week previously. No retropulsed fragments are identified. 2. There is no evidence of fracture or malalignment involving the lumbosacral spine 3. Osteopenia and spondylotic change as above. Electronically signed by: Derrek Silva M.D. 09/13/2016 9:42 AM Dictated Date/Time: 09/13/2016 9:37 AM
--- NOTE | 2016-09-13 09:45 | DIAGNOSTIC IMAGING REPORT ---
THORACIC SPINE CT CT DOSE: HISTORY: Pt c/o low back pain s/p fall TECHNIQUE: Multiaxial CT images of the thoracic spine were performed and reformatted in the sagittal and coronal plane without the use of contrast. COMPARISON: Lumbar spine CT 09/06/2016. FINDINGS: No change in the mild superior endplate compression fracture at T12. No associated retropulsion. No additional fractures identified within the thoracic spine. Mild degenerative disc disease seen throughout the thoracic spine. No significant central canal narrowing by CT technique. Paraspinal soft tissues are unremarkable. IMPRESSION: No change in the mild superior endplate compression fracture at T12. No additional fractures identified within the thoracic spine. Electronically signed by: Baldemar Temple M.D. 09/13/2016 9:43 AM Dictated Date/Time: 09/13/2016 9:37 AM
[2016-09-13] MEDS ORDERED: NAPR1TAB9 PO (09:50)
[2016-09-13] MEDS ORDERED: HYDR-3983 PO (09:52)
[2016-09-13] MEDS ORDERED: MoRPHine SULFATE 4 MG/ML 1 ML CARP\\VIAL IV STA (10:01)
[2016-09-13] MEDS ORDERED: ONDANSETRON INJ 2 MG/ML 2 ML VIAL IV STA (10:01)
[2016-09-13 10:22] LABS: CKMB/CK RATIO 2.7 (0-3.0)
--- NOTE | 2016-09-13 10:45 | DIAGNOSTIC IMAGING REPORT ---
SINGLE VIEW CHEST CLINICAL HISTORY: Change in mental status. FINDINGS: An AP, portable, upright chest radiograph is compared to study dated 08/04/2016. The examination is degraded by portable technique and patient rotation. The heart is mildly enlarged and there is atherosclerotic calcification of the thoracic aorta. The pulmonary vasculature is noncongested . Chronic interstitial thickening is unchanged. No airspace consolidation or large pleural effusion is seen. Minimal left basilar atelectasis is noted. No pneumothorax is identified. The skeletal structures are osteopenic. Degenerative change is noted throughout the thoracic spine. Advanced arthritic change is present in the right shoulder. IMPRESSION: Mild cardiac enlargement with no acute cardiopulmonary abnormality. Electronically signed by: Derrek Silva M.D. 09/13/2016 10:43 AM Dictated Date/Time: 09/13/2016 10:42 AM
--- NOTE | 2016-09-13 11:04 | History and Physical ---
History & Physical Date & Time of Service: Sep 13, 2016 at 10:37 Chief Complaint: FALL Primary Care Physician: Domo Alanis D.O. History of Present Illness Source: patient, friend 76yo male with h/o HTN, COPD, gout, liver disease, and prior TIA presents after having had a fall about 0500 this am. He was walking with his walker and as he got into his kitchen he fell onto the ground. He is not sure if he had syncope or loss of consciousness. When he hit the ground he fell onto his back and hit his head. Over the last month or so he has had at least 3-4 episodes of falls. He denies any preceding chest pain, sob, palpitations, or dyspnea with exertion. Before the event he felt a little lightheaded. He checked his HR and BP this am (before the event) and his pulse was 51 and his BP, to his recollection, was 117/90. Glucose was 91. He is pretty sure that with the other episodes in the last month he has felt lightheaded. He also mentions that when he gets out of bed he feels a little lightheaded as well. After he got up from the floor this am he noted right arm/leg numbness. This is now better except for some remaining right hand numbness. Past Medical/Surgical History PMH: 1. cirrhosis 2. asthma 3. COPD 4. h/o TIA / stroke 5. gout 6. HTN 7. T2DM 8. hypothyroidism 9. BPH PSH 1. right knee replacement 2013 - [facility] 2. umbilical hernia/ventral hernia - [facility] 3. cholecystectomy - [facility] 4. B/L cataract extraction Family History Cancer FHx: hemochromatosis Heart disease Hypertension mother - ESRD on HD, age 80s father - stroke, age 54 sister - stroke sister - stroke Social History Smoking Status: Former Smoker (smoked 5 years, quit early 1970s) Alcohol Use: heavy etoh use up until 1970 Drug Use: none Marital Status: (6 kids, 1 is already ) Housing status: lives alone (in [place]) Occupational Status: retired (worked for [email or web address]) Multi-Drug Resistant Organisms History of MDRO: No Allergies Coded Allergies: Oxycodone (Verified Allergy, Mild, SHORTNESS OF BREATH, 09/13/16) wheezing ??? Dobutamine (Verified Allergy, Unknown, abd pain, 09/13/16) Iodinated Diagnostic Agents (Verified Allergy, Unknown, HIVES, 09/13/16) Meperidine (Verified Allergy, Unknown, ANAPHYLAXIS, 09/13/16) Perflutren (Verified Allergy, Unknown, abd pain, 09/13/16) Propylene Glycol (Verified Allergy, Unknown, abd pain, 09/13/16) Home Medications Scheduled Allopurinol (Allopurinol), 300 MG PO QAM Atorvastatin (Lipitor), 40 MG PO QAM Budesonide (Pulmicort Respules 0.5MG/2ML), 2 ML INH BID Carvedilol (Carvedilol), 12.5 MG PO QAM Finasteride (Proscar), 5 MG PO QPM Formoterol Fumarate (Perforomist), 2 ML INH BID Gabapentin (Neurontin), 300 MG PO QPM Insulin Glargine (Toujeo Solostar), 20 UNITS INJ HS Lactulose (Encephalopathy) (Lactulose), 30 ML PO BID Levothyroxine Sodium (Synthroid), 50 MCG PO QAM Magnesium Oxide (Mag-Ox), 400 MG PO QAM Naproxen (Aleve), 220 MG PO DAILY Nitroglycerin (Nitrostat), 0.4 MG UT PRN Pantoprazole Sodium (Protonix), 40 MG PO QPM Paroxetine (Paroxetine HCl), 10 MG PO QAM Tamsulosin Hcl (Flomax), 0.4 MG PO QPM Scheduled PRN Hydrocodone/Acetaminophen 7.5MG/325MG ([place] 7.5MG/325MG), 1 TAB PO Q6H PRN for Pain Meclizine Hcl (Meclizine Hcl), 1 TAB PO Q6H PRN for Dizziness or Vertigo Review of Systems Constitutional: + weight loss (60 pounds in the last year - intentional ), No chills, No fatigue, No fever, No problem reported, No sweats, No weakness Eyes: + diplopia (has had it in the past ), No discharge, No eye pain, No problem reported, No redness, No worsening of vision ENT: No dental problems, No hearing loss, No nasal symptoms, No problem reported, No sore throat, No tinnitus, No trouble swallowing, No unusual epistaxis Respiratory: No cough, No dyspnea at rest, No dyspnea on exertion, No hemoptysis, No problem reported, No shortness of breath, No sputum, No wheezing Cardiovascular: + chest pain (had it the other day while riding his lawnmower) , No PND, No claudication, No edema, No orthopnea, No palpitations, No problem reported Abdomen: No GI bleeding, No constipation, No diarrhea, No nausea, No pain, No problem reported, No vomiting Musculoskeletal: + joint pain (right knee) Genitourinary - Male: + dysuria, No hematuria, No impotence, No lesions, No penile discharge, No problem reported, No urinary frequency, No urinary hesitancy, No urinary incontinence, No urinary retention, No urinary urgency Neurologic: + balance problems, + memory loss, + numbness/tingling (right arm/ leg today), No paralysis, No problem reported, No vertigo, No weakness Psychiatric: + insomnia (last 2 days) Hematologic / Lymphatic: + abnormal bleeding/bruising (around the right knee) Integumentary: No bleeding, No color change, No itch, No new/changing skin lesions, No problem reported, No rash Physical Exam Vital Signs Date Time Temp Pulse Resp B/P Pulse Ox O2 Delivery O2 Flow Rate FiO2 09/13/16 08:34 36.6 62 20 170/90 98 Room Air General Appearance: + mild distress (DURING THE EXAM HE BECAME INCREASINGLY MORE SLEEPY; WHEN HE GOT SLEEPY HE STARTED TO BECOME TACHYPNEIC), + obese Head: normocephalic, atraumatic Eyes: + pertinent finding (PINPOINT PUPILS B/L BUT REACTIVE; he had a lot of difficulty doing extraocular movements but these seemed to be intact) ENT: pharynx normal, + pertinent finding (hearing aids b/l ) Neck: supple, no adenopathy, thyroid normal, no JVD Respiratory/Chest: + wheezing (b/l), + pertinent finding (no rales; had transient tachypnea then it resolved) Cardiovascular: regular rate, rhythm, no gallop, normal peripheral pulses, + systolic murmur (1-2/6 RUSB) Abdomen/GI: normal bowel sounds, non tender, soft, no organomegaly, + hernia ( incisional?), + pertinent finding (multiple scars over abdominal wall) Back: + paravertebral tenderness (and vertebral tenderness distal thoracic spine) Extremities/Musculoskelatal: + pedal edema (1+ on left, none on right; knee replacement scar on right) Neurologic/Psych: + pertinent finding (initially awake/alert but became sleepier (received morphine prior to my arrival); speech slightly slurred but no aphasia; no asterixis; strength 5/5 on left, maybe 4-5/5 right arm and leg; finger/nose/finger maneuver slow but no dysmetria; ?left facial droop but other CN's intact; DTRs symmetric upper & lower exts; gait not assessed) Skin: no rash Lymphatic: no adenopathy (cervical) Diagnostics Laboratory Results Results Past 24 Hours Test 09/13/16 08:50 09/13/16 09:05 09/13/16 09:15 Range/Units White Blood Count 6.80 4.8-10.8 K/uL Red Blood Count 4.42 4.7-6.1 M/uL Hemoglobin 13.8 14.0-18.0 g/dL Hematocrit 39.2 42-52 % Mean Corpuscular Volume 88.7 80-100 fL Mean Corpuscular Hemoglobin 31.2 25-34 pg Mean Corpuscular Hemoglobin Concent 35.2 32-36 g/dl Platelet Count 91 130-400 K/uL Mean Platelet Volume 9.1 7.4-10.4 fL Neutrophils (%) (Auto) 61.3 % Lymphocytes (%) (Auto) 22.6 % Monocytes (%) (Auto) 9.1 % Eosinophils (%) (Auto) 6.0 % Basophils (%) (Auto) 0.6 % Neutrophils # (Auto) 4.16 1.4-6.5 K/uL Lymphocytes # (Auto) 1.54 1.2-3.4 K/uL Monocytes # (Auto) 0.62 0.11-0.59 K/uL Eosinophils # (Auto) 0.41 0-0.5 K/uL Basophils # (Auto) 0.04 0-0.2 K/uL RDW Standard Deviation 49.7 36.4-46.3 fL RDW Coefficient of Variation 15.3 11.5-14.5 % Immature Granulocyte % (Auto) 0.4 % Immature Granulocyte # (Auto) 0.03 0.00-0.02 K/uL Platelet Estimate DECREASED Sodium Level 140 136-145 mmol/L Potassium Level 4.2 3.5-5.1 mmol/L Chloride Level 108 98-107 mmol/L Carbon Dioxide Level 24 21-32 mmol/L Anion Gap 8.0 3-11 mmol/L Blood Urea Nitrogen 28 7-18 mg/dl Creatinine 1.40 0.60-1.40 mg/dl Estimated GFR () 56.6 Estimated GFR (Non- 48.8 BUN/Creatinine Ratio 19.7 10-20 Random Glucose 167 70-99 mg/dl Calcium Level 9.9 8.5-10.1 mg/dl Total Bilirubin 1.4 0.2-1 mg/dl Direct Bilirubin 0.4 0-0.2 mg/dl Aspartate Amino Transf (AST/SGOT) 18 15-37 U/L Alanine Aminotransferase (ALT/SGPT) 25 12-78 U/L Alkaline Phosphatase 86 45-117 U/L Total Creatine Kinase 48 39-308 U/L Creatine Kinase MB 1.3 0.5-3.6 ng/ml Creatine Kinase MB Ratio 2.7 0-3.0 Troponin I < 0.015 0-0.045 ng/ml Total Protein 7.0 6.4-8.2 gm/dl Albumin 3.8 3.4-5.0 gm/dl Ammonia 59.0 11-32 umol/L Bedside Glucose 152 70-99 mg/dl Diagnostic Radiology CT head - IMPRESSION: There is no hemorrhage, mass effect, or evidence of acute territorial ischemia by CT criteria. CT lumbar spine - IMPRESSION: 1. There is a mild subacute compression fracture of T12, unchanged from study performed 1 week previously. No retropulsed fragments are identified. 2. There is no evidence of fracture or malalignment involving the lumbosacral spine 3. Osteopenia and spondylotic change as above. CXR normal EKG EKG - my reading Low voltage Flat ST segments throughout the entire leads appears NSR in comparison to EKG 07/2016 largely unchanged w/ exception that the ST segments are more flat on today's EKG Impression Assessment and Plan 76yo male with known cirrhosis (FUENTES?), HTN, recent T-spine compression fracture from a fall, T2DM, obesity, recurrent falls and ?recurrent syncope, as well as stroke(s) and/or TIAs presenting with multiple complaints. His main concern is that of his falls as he has had at least 3-4 incidents in the last month. The falls are often preceded by feeling lightheaded/dizzy. 1. question of syncope with resultant falls - the exact etiology of these are unknown. He has numerous risk factors for falls including prior strokes, cerebellar atrophy on prior MRI, use of narcotics, elevated ammonia levels, deconditioning, use of alpha blockers, ?double vision, etc. Plan - * MRI brain to r/o acute/subacute stroke or other process * B1 and B12 levels * treat the elevated ammonia level * check orthostatics * limit narcotics if possible; in the wake of his cirrhosis there is not a great choice for pain control * telemetry; r/o dysrhythmia * PT, OT 2. question of mild hepatic encephalopathy - he has no asterixis on exam but his friends who brought him today report slurry speech and mental status change for the last 2 weeks. He reports compliance with his lactulose. Will resume lactulose and titrate for 2-3 BMs/day. Consider adding rifaximin as well. 3. right knee pain s/p TKR in the past - voltaren gel qid. 4. left leg edema - at risk for DVT due to immobility & cirrhosis. Check doppler, r/o DVT. 5. ?diplopia, right-sided paresthesias - check MRI brain. B1 level. 6. dysuria - send u/a and urine cx, treat for UTI if necessary. 7. T2DM - lantus 20 units HS. Novolog w/ meals - correction factor 50; carb ratio 1:15. 8. c/o chest pain - reports exertional symptoms. Had normal echo with preserved EF and normal wall motion 04/2016. Serial troponins & telemetry. Defer on echo or stress at this time. Does follow with [facility] by his report. 9. encephalopathy - hepatic vs metabolic vs infectious vs other. Check VBG, b12, b1 levels. MRI brain. Check u/a & urine cx. 10. t-spine compression fracture (T12) - due to recent fall. Stable on films today. Check vitamin D level. Lidoderm patches. Dilaudid 0.5mg IV q4h prn. Avoid morphine - made him very sleepy in the ER. Other oral narcotics have been poorly tolerated by report. Consult Rainer Castellano, orthotics, for consideration of brace. PT, OT consults. 11. DVT proph - avoid chemical means for now due to low platelets. SCDs. 12. thrombocytopenia - likely 2nd to cirrhosis. Follow. 13. COPD - continue home inhalers/nebs. Not in exacerbation and has normal cxr today. 14. social - patient lives alone & has been doing poorly in the last few weeks with recurrent falls, back pain, etc. He would benefit from rehab after his stay here. Has been to [facility] in the past. PT, OT, and SW consults. 15. BPH - continue home meds for now. 16. hypothyroidism - TSH in late 2015 was compensated. Cont synthroid current dose. code status - full, level 1 - but would not want prolonged intubation/mech ventilation or other life-saving measures indefinitely Level of Care Telemetry Advanced Directives Existing Advance Directive: Yes Existing Living Will: Yes Resuscitation Status FULL RESUSCITATION VTE Prophylaxis Risk Level: High Given or contraindicated: SCD's Note total visit time about 75 minutes Additional Copies To Domo Alanis D.O.
[2016-09-13] MEDS ORDERED: MAGNESIUM HYDROXIDE SUSP 30 ML UDC PO PRN (11:30)
[2016-09-13] MEDS ORDERED: ONDANSETRON INJ 2 MG/ML 2 ML VIAL IV PRN (11:30)
[2016-09-13] MEDS ORDERED: NITROGLYCERIN 0.4 MG SL PER TAB CHARGE SL PRN (11:30)
[2016-09-13] MEDS ORDERED: ALUMINUM/MAGNESIUM/SIMETH (MAALOX MAX) 30 ML UDC PO PRN (11:30)
[2016-09-13] MEDS ORDERED: MECLIZINE HCL 12.5 MG TAB PO PRN (11:30)
--- NOTE | 2016-09-13 11:56 | DIAGNOSTIC IMAGING REPORT ---
LEFT LOWER EXTREMITY VENOUS DOPPLER HISTORY: eval for DVT left leg COMPARISON STUDY: None. FINDINGS: There is normal compressibility, flow, and augmentation within the left lower extremity deep venous system. IMPRESSION: No DVT within the left lower extremity. Electronically signed by: Baldemar Temple M.D. 09/13/2016 11:54 AM Dictated Date/Time: 09/13/2016 11:54 AM
[2016-09-13 12:41] LABS: URINE APPEARANCE CLEAR (CLEAR); URINE BILIRUBIN NEG (NEG); URINE COLOR YELLOW; URINE NITRITE NEG (NEG); URINE SPECIFIC GRAVITY 1.016 (1.000-1.030); UROBILINOGEN NEG (NEG)
[2016-09-13 12:54] LABS: MANUAL MICROSCOPIC REQUIRED? NO; REVIEW REQ? NO
[2016-09-13] MEDS ORDERED: GLUCAGON FOR INJ 1 MG VIAL SQ PRN (13:15)
[2016-09-13] MEDS ORDERED: GLUCOSE 10 TABS/TUBE PO PRN (13:15)
[2016-09-13] MEDS ORDERED: GLUCOSE 40% GEL 15 GM TUBE PO PRN (13:15)
[2016-09-13] MEDS ORDERED: DEXTROSE 50% 50 ML SYR IV PRN (13:15)
[2016-09-13 13:16] LABS: VEN BLD GAS O2 SATURATION < 60.0 %; VENOUS BLOOD GAS PCO2 44 mmHg (38.0-50.0); VENOUS BLOOD GAS PO2 25 mmHg
[2016-09-13] MEDS: LACTULOSE SYRUP 30 GM/45 ML UDP PO SCH ×2 (14:25→20:54)
[2016-09-13] MEDS: THIAMINE HCL 100 MG TAB PO SCH ×2 (14:26→20:57)
[2016-09-13] MEDS: LIDODERM (LIDOCAINE) PATCH 5% TD SCH (14:27)
[2016-09-13] MEDS: HYDROmorphone INJ 0.5 MG/0.5 ML SYR IV PRN (17:07)
[2016-09-13] MEDS: DICLOFENAC SOD 1% GEL 100 GM TUBE EXT SCH ×2 (17:10→20:53)
[2016-09-13] MEDS: INSULIN ASPART 100 UNITS/ML 3 ML PEN SC SCH ×2 (17:52→20:59)
[2016-09-13] MEDS: FORMOTEROL FUMA NEBULIZER SOLN 20 MCG/2 ML VIAL INH SCH (20:07)
[2016-09-13] MEDS: BUDESONIDE 0.5 MG/2 ML VIAL (PULMICORT) INH SCH (20:08)
[2016-09-13] MEDS ORDERED: CYANOCOBALAMIN 1000 MCG/ML VIAL IM ONE (20:47)
[2016-09-13] MEDS: CARVEDILOL 12.5 MG TAB PO SCH (20:55)
[2016-09-13] MEDS: GABAPENTIN 300 MG CAP PO SCH (20:58)
[2016-09-13] MEDS: PANTOprazole SOD 40 MG TAB PO SCH (20:58)
[2016-09-13] MEDS ORDERED: FINASTERIDE 5 MG TAB PO SCH (21:00)
[2016-09-13] MEDS ORDERED: TAMSULOSIN HCL 0.4 MG CAP PO SCH (21:00)
[2016-09-13] MEDS: INSULIN GLARGINE SOLOSTAR 100 UNITS/ML 3 ML PEN SC SCH (21:04)
[2016-09-14] VITALS (9 sets, daily range): BP systolic 95–151; BP diastolic 53–86; PULSE 53–84; TEMP 36.4–36.6; O2SAT 95–99
[2016-09-14] MEDS: LEVOTHYROXINE 50 MCG TAB PO SCH (06:14)
[2016-09-14] MEDS: HYDROmorphone INJ 0.5 MG/0.5 ML SYR IV PRN ×2 (06:22→13:27)
[2016-09-14 06:32] LABS: BUN/CREATININE RATIO 16.5 (10-20); CALCIUM 9.5 mg/dl (8.5-10.1); CREATININE 1.3 mg/dl (0.60-1.40); POTASSIUM 4.3 mmol/L (3.5-5.1)
[2016-09-14] MEDS: DICLOFENAC SOD 1% GEL 100 GM TUBE EXT SCH ×4 (07:50→20:58)
[2016-09-14] MEDS: THIAMINE HCL 100 MG TAB PO SCH ×2 (07:51→21:01)
[2016-09-14] MEDS: ATORVASTATIN 40 MG TAB PO SCH (07:51)
[2016-09-14] MEDS: PAROXETINE 20 MG TAB PO SCH (07:51)
[2016-09-14] MEDS: CARVEDILOL 12.5 MG TAB PO SCH (07:52)
[2016-09-14] MEDS: LACTULOSE SYRUP 30 GM/45 ML UDP PO SCH ×2 (07:53→20:59)
[2016-09-14] MEDS: MAGNESIUM OXIDE 400 MG TAB PO SCH (07:54)
[2016-09-14] MEDS: CYANOCOBALAMIN 1000 MCG/ML VIAL IM SCH (07:54)
[2016-09-14] MEDS: ALLOPURINOL 300 MG TAB PO SCH (07:55)
[2016-09-14] MEDS: LIDODERM (LIDOCAINE) PATCH 5% TD SCH (07:55)
[2016-09-14] MEDS: INSULIN ASPART 100 UNITS/ML 3 ML PEN SC SCH ×4 (08:10→21:00)
[2016-09-14] MEDS: FORMOTEROL FUMA NEBULIZER SOLN 20 MCG/2 ML VIAL INH SCH ×2 (08:17→20:45)
[2016-09-14] MEDS: BUDESONIDE 0.5 MG/2 ML VIAL (PULMICORT) INH SCH ×2 (08:17→20:45)
[2016-09-14] MEDS ORDERED: PHARMACIST DISCHARGE MED REC CONSULT PRN (13:15)
--- NOTE | 2016-09-14 13:15 | DIAGNOSTIC IMAGING REPORT ---
MRI OF THE BRAIN WITHOUT IV CONTRAST CLINICAL HISTORY: Falls. Right-sided paresthesias. Diplopia. COMPARISON STUDY: CT of the brain dated 09/13/2016. MRI of the brain dated 04/21/2016. TECHNIQUE: MRI of the brain was performed utilizing various T1 and T2-weighted sequences in the axial, sagittal, and coronal planes. IV contrast was not administered for this examination. FINDINGS: Brain parenchyma: There are age-related involutional changes noting mild to moderate patchy subcortical and periventricular microangiopathic disease. Tiny chronic lacunar infarcts are identified in the right juan and the right cerebral peduncle. There is no hemorrhage or mass effect. There is no restricted diffusion to suggest acute ischemia. Schultz-white matter differentiation is preserved. No extra-axial fluid collection is seen. The cerebellar tonsils are normal in configuration. Ventricles, sulci, and cisterns: Prominent secondary to involutional change. Pituitary and sella: Unremarkable. Intracranial vasculature: Normal flow voids are maintained at the skull base. Orbits: The bony orbits are grossly intact. Orbital contents are normal in appearance noting bilateral ocular lens implants. Sinuses and mastoids: There is mild mucosal thickening within the maxillary antra and the ethmoid sinuses. The remaining paranasal sinuses are clear. There are small mastoid effusions. Calvarium: Unremarkable. Cervical cord: Partially visualized cervical spinal cord is normal in morphology and signal intensity. IMPRESSION: Senescent changes as above with no acute intracranial abnormality. Electronically signed by: Derrek Silva M.D. 09/14/2016 1:12 PM Dictated Date/Time: 09/14/2016 1:08 PM
--- NOTE | 2016-09-14 14:42 | Neurology Consultation ---
Neurology Consultation Date of Consultation: Sep 14, 2016. Attending Physician: Janine Flores MD Primary Care Physician: Domo Alanis D.O. Reason for Consultation: TIA/CVA freq falls History of Present Illness Source: patient, family Alex is a 76yo male with h/o HTN, COPD, gout, liver disease, and prior TIA/ CVA presents after having had a fall about 0500 this am. He was walking with his walker and as he got into his kitchen he fell onto the ground. He states he had his phone in his pocket and called his son. His son is currently in the room and states he was clear on the phone and he was able to get him up off the floor. He has had several falls over the past month and appears similar to the current fall. He did notice his right side was weaker than the residual he had from his previous stroke. He was somewhat light headed but no diaphoretic and then just went down. His HR and BP prior to the event was pulse 51 and BP 117/ 90. He states his HR at times goes into the 50s. He had an accident with his tractor last week and from the jerking of the tractor he had a compression fracture of T12. Since then according to son he has not been taking his lactulose for his ammonia level because he didn't want to keep running to the bathroom due to back pain. denies Current CP, SOB, abdominal pain, N, V, +back pain, right UE/LE weakness. Past Medical/Surgical History Medical Problems: (1) Abdominal pain Status: Acute (2) Abdominal pain of unknown etiology Status: Acute (3) Altered mental status Status: Acute (4) Back pain Status: Acute (5) C. difficile colitis Status: Acute (6) C. difficile diarrhea Status: Acute (7) Compression fracture Status: Acute (8) Dehydration Status: Acute (9) Headache Status: Acute (10) Hydronephrosis with renal calculous obstruction Status: Acute (11) Low back strain Status: Acute (12) Palpitation Status: Acute (13) Right sided weakness Status: Acute Social History Alcohol Use: heavy etoh use up until 1970 Drug Use: none Marital Status: (6 kids, 1 is already ) Housing Status: lives alone Occupation Status: retired (worked for [employer]) Allergies Coded Allergies: Oxycodone (Verified Allergy, Mild, SHORTNESS OF BREATH, 09/13/16) wheezing ??? Dobutamine (Verified Allergy, Unknown, abd pain, 09/13/16) Iodinated Diagnostic Agents (Verified Allergy, Unknown, HIVES, 09/13/16) Meperidine (Verified Allergy, Unknown, ANAPHYLAXIS, 09/13/16) Perflutren (Verified Allergy, Unknown, abd pain, 09/13/16) Propylene Glycol (Verified Allergy, Unknown, abd pain, 09/13/16) Current Inpatient Medications Current Inpatient Medications Medications (Trade) Dose Ordered Sig/Ronna Route Start Time Stop Time Status Last Admin Dose Admin Al Hydrox/Mg Hydrox/Simethicone (Maalox Max Susp) 15 ml Q4H PRN PO 09/13/16 11:30 10/13/16 11:29 Magnesium Hydroxide (Milk Of Magnesia Susp) 30 ml Q12H PRN PO 09/13/16 11:30 10/13/16 11:29 Ondansetron HCl (Zofran Inj) 4 mg Q6H PRN IV 09/13/16 11:30 10/13/16 11:29 Nitroglycerin (Nitrostat Tab) 0.4 mg UD PRN SL 09/13/16 11:30 10/13/16 11:29 Allopurinol (Zyloprim Tab) 300 mg QAM PO 09/14/16 09:00 10/14/16 08:59 09/14/16 07:55 300 MG Atorvastatin Calcium (Lipitor Tab) 40 mg QAM PO 09/14/16 09:00 10/14/16 08:59 09/14/16 07:51 40 MG Budesonide (Pulmicort Respules 0.5MG/ 2ML Neb Soln) 1 mg BIDR INH 09/13/16 20:00 10/13/16 19:59 09/14/16 08:17 1 MG Carvedilol (Coreg Tab) 12.5 mg BID PO 09/13/16 21:00 10/13/16 20:59 Finasteride (Proscar Tab) 5 mg QPM PO 09/13/16 21:00 10/13/16 20:59 09/13/16 20:58 5 MG Formoterol Fumarate (Perforomist 20MCG/2ML Neb Soln) 40 mcg BIDR INH 09/13/16 20:00 10/13/16 19:59 09/14/16 08:17 40 MCG Gabapentin (Neurontin Cap) 300 mg QPM PO 09/13/16 21:00 10/13/16 20:59 09/13/16 20:58 300 MG Levothyroxine Sodium (Synthroid Tab) 50 mcg DAILYBB PO 09/14/16 06:30 10/14/16 06:29 09/14/16 06:14 50 MCG Magnesium Oxide (Mag-Ox Tab) 400 mg QAM PO 09/14/16 09:00 10/14/16 08:59 09/14/16 07:54 400 MG Meclizine HCl (Antivert Tab) 25 mg Q6H PRN PO 09/13/16 11:30 10/13/16 11:29 Pantoprazole Sodium (Protonix Tab) 40 mg QPM PO 09/13/16 21:00 10/13/16 20:59 09/13/16 20:58 40 MG Tamsulosin HCl (Flomax Cap) 0.4 mg QPM PO 09/13/16 21:00 10/13/16 20:59 09/13/16 20:57 0.4 MG Insulin Glargine (Lantus Solostar Pen) 20 unit HS SC 09/13/16 21:00 10/13/16 20:59 09/13/16 21:04 20 UNIT Lactulose (Chronulac Syrup) 30 gm BID PO 09/13/16 11:30 10/13/16 11:29 09/14/16 07:53 30 GM Paroxetine HCl (pAXil TAB) 10 mg QAM PO 09/14/16 09:00 10/14/16 08:59 09/14/16 07:51 10 MG Lidocaine (Lidoderm Patch 5%) 2 patch QAM TD 09/13/16 11:30 10/13/16 11:29 09/14/16 07:55 2 PATCH Hydromorphone HCl (Dilaudid Inj) 0.5 mg Q4H PRN IV 09/13/16 11:30 09/27/16 11:29 09/14/16 13:27 0.5 MG Diclofenac Sodium (Voltaren 1% Top Gel) 1 appln QID EXT 09/13/16 17:00 10/13/16 16:59 09/14/16 13:28 1 APPLN Insulin Aspart (novoLOG ASPART) SLIDING SCALE G... ACHS SC 09/13/16 16:00 10/13/16 15:59 09/14/16 12:34 3 UNITS Glucose (Glucose 40% Gel) 15-30 GRAMS 15 GRAMS... UD PRN PO 09/13/16 13:15 10/13/16 13:14 Glucose (Glucose Chew Tab) 4-8 Tablets 4 Tabl... UD PRN PO 09/13/16 13:15 10/13/16 13:14 Dextrose (Dextrose 50% 50ML Syringe) 25-50ML OF 50% DW IV FOR... UD PRN IV 09/13/16 13:15 10/13/16 13:14 Glucagon (Glucagon Inj) 1 mg UD PRN SQ 09/13/16 13:15 10/13/16 13:14 Thiamine HCl (Vitamin B-1 Tab) 200 mg BID PO 09/14/16 09:00 10/14/16 08:59 09/14/16 07:51 200 MG Miscellaneous (Remove Lidoderm Patch) 1 ea DAILY@21 N/A 09/13/16 21:00 10/13/16 20:59 09/13/16 20:56 1 EA Cyanocobalamin (Vitamin B-12 Inj) 1,000 mcg DAILY IM 09/14/16 09:00 10/14/16 08:59 09/14/16 07:54 1,000 MCG Aspirin (Ecotrin Tab) 81 mg QAM PO 09/15/16 09:00 10/15/16 08:59 Miscellaneous Information (Pharmacist Discharge Med Rec Consult) 1 ea UD PRN N/A 09/14/16 13:15 10/14/16 13:14 Physical Exam Vital Signs (Past 24 Hrs): Date Time Temp Pulse Resp B/P Pulse Ox O2 Delivery O2 Flow Rate FiO2 09/14/16 12:00 Room Air 09/14/16 11:45 36.5 60 18 107/65 98 Room Air 09/14/16 08:17 61 16 98 Room Air 09/14/16 08:00 Room Air 09/14/16 07:23 36.4 53 16 123/74 97 Room Air 09/14/16 04:54 36.4 55 16 151/86 97 Room Air 09/14/16 04:00 Room Air 09/14/16 00:00 Room Air 09/13/16 23:35 36.5 56 16 139/83 92 Room Air 09/13/16 20:08 79 16 94 Room Air 09/13/16 20:00 96 Room Air 09/13/16 19:55 36.4 54 16 134/75 98 Room Air 09/13/16 16:00 98 Room Air 09/13/16 15:50 36.4 52 18 142/84 98 Room Air Physical Exam: Constitutional appearance nourished, healthy and obese Ears, Nose, Mouth and Throat: mucous membranes moist, no injection and skin normal, eyes normal Cardiovascular: normal S-1 and S-2 and regular rate and rhythm Respiratory: clear to auscultation (CTA) and no rales, rhonchi or wheeze Musculoskeletal: no peripheral edema Skin: no stigmata of neurocutaneous disease noted and normal and intact Eyes: extraocular muscles intact (EOMI) and pupils equal, round and reactive to light (PERRL) miotic (previous cataract surgery with lens placement) NEUROLOGIC EXAMINATION: Mental status: Alert and interactive Oriented to full date and location Oriented to person Speech fluent with no evidence of aphasia Cranial Nerves smile eye brow raise symmetric, tongue midline Reflexes: Deep tendon reflexes were symmetrical and graded 2/5. Plantar responses were flexor. no flap with extension of hands Sensory: intact to light touch, vibration, decreased to cool touch bilaterally to shins, GT proprioception intact Coordination: finger to nose with out bi pass or tremor Gait/Stance: Posture lying in bed Motor: Negative for pronator drift of out stretched arms with eyes closed. Strength: strength left UE biceps triceps deltoids hand rn chemical dependency intrinsics 5/5, LE left hip flex plantar flex ext 5/5 , right UE hand rn chemical dependency 3/5, intrinsic 3/5 biceps triceps 3/5. hip flex right against gravity but not against resistance on R, plantar flex 3/5 Laboratory Results Past 24 Hours: 09/14/16 05:44 Test 09/13/16 20:49 09/14/16 05:44 09/14/16 11:52 09/14/16 13:06 Troponin I < 0.015 ng/ml (0-0.045) Anion Gap 5.0 mmol/L (3-11) Est Creatinine Clear Calc Drug Dose 57.5 ml/min Estimated GFR () 61.9 Estimated GFR (Non- 53.4 BUN/Creatinine Ratio 16.5 (10-20) Calcium Level 9.5 mg/dl (8.5-10.1) Ammonia 110.0 umol/L (11-32) Bedside Glucose 138 mg/dl (70-99) Imaging MRI brain without contrast- no acute intracranial abnormality LE US- No DVT within the left lower extremity. CT head- There is no hemorrhage, mass effect, or evidence of acute territorial ischemia by CT criteria. CT T spine- FINDINGS: No change in the mild superior endplate compression fracture at T12. No associated retropulsion. No additional fractures identified within the thoracic spine. Mild degenerative disc disease seen throughout the thoracic spine. No significant central canal narrowing by CT technique. Paraspinal soft tissues are unremarkable. CT L spine- FINDINGS: The skeletal structures are osteopenic. Again seen is a mild subacute superior endplate compression fracture of T12, which was also seen on 09/06/2016. Minimal paravertebral edema is noted at this level. There is no evidence of fracture or subluxation involving the lumbar spine. Vertebral body height and alignment are maintained throughout the lumbar spine. The transverse and spinous processes appear intact. There is no spondylolysis. No lytic or blastic lesions are seen. Mild facet arthropathy is noted in the lower lumbar region. There is calcification of the posterior paraspinous as well as the interspinous ligaments. Mild degenerative disc space narrowing seen throughout the lumbar spine. Posterior disc osteophyte complexes are noted at L2 -L3, L3-L4, L4-L5, and L5-S1. There is no evidence of large disc herniation. The visualized sacrum and bony pelvis appear intact. The paraspinous soft tissues are within normal limits. There is moderate atherosclerotic calcification of the abdominal aorta. Impression 76 year old male s/p fall, R sided weakness Plan 1. MRI with no evidence of acute stroke- done without contrast 2. correct ammonia level 3. orthostatic blood pressures -ordered but no resulted 4. may need a cardionet to evaluate for arrhythmia 5. carotid doppler is not already done 6. echocardiogram for evaluation of valves 7. further recommendations to follow I have seen and discussed above patient with Dr Najma Mendez, neurology Pt seen and examined. Mild R hemiparesis, old suspect syncope or fall related to narcotics in combination with multiple medical comordities. Doubt sz. Rec holding narcotics, checking orthostatics, EEG. Resume lactulose. consider ortho consult re bracing for thoracic compression fracture. Will follow with you. SOM Mendez MD
[2016-09-14 15:10] LABS: ESTIMATED AVERAGE GLUCOSE 128 mg/dl; HA1C FLAG Normal (Normal)
--- NOTE | 2016-09-14 15:21 | DIAGNOSTIC IMAGING REPORT ---
RIGHT RIBS UNILATERAL MIN 2 VIEWS CLINICAL HISTORY: Right rib pain. Trauma. COMPARISON STUDY: No previous studies for comparison. FINDINGS: No pneumothorax is visualized. No right-sided rib fractures are evident. There is blunting of the right lateral corresponding angle. Arthritic changes are present within the right shoulder. IMPRESSION: No evidence of pneumothorax. No right-sided rib fractures are visualized. Suspected trace right pleural effusion. Electronically signed by: Shad Parr M.D. 09/14/2016 3:19 PM Dictated Date/Time: 09/14/2016 3:17 PM
--- NOTE | 2016-09-14 15:26 | Hospitalist Progress Note ---
Hospitalist Progress Note Date of Service Sep 14, 2016. (Tara Foreman PA-C) Subjective Pt evaluation today including: conversation w/ patient, physical exam, chart review, lab review, review of studies, review of inpatient medication list Patient seen and evaluated. No acute events overnight. He is alert and oriented. Conversation is fluent and without garbled speech. MRI is negative for acute findings. In regards to right arm and right leg weakness and numbness this appears to be chronic. He does feel that the right-sided weakness is a little more significant than residual. He recalls being told the arteries in his neck are narrow and his low heart rate can be affecting his lightheadedness. Only current complaint is of right sided pain, he states he thought was his liver, it is reproducible over the ribs. Question possible rib fracture with fall or injury He is having some back pain but states the right-sided pain is more significant but manageable. He would like to go to [facility] in [place]. Additional Comments: REVIEW OF SYSTEMS: Constitutional: No chills, No fatigue, No fever, No problem reported, No sweats , No weakness Eyes: No worsening of vision ENT: No nasal symptoms, No sore throat, No trouble swallowing, No unusual epistaxis Respiratory: No cough, No dyspnea at rest, No dyspnea on exertion, No hemoptysis, No shortness of breath, No sputum, No wheezing Cardiovascular: No chest pain, No edema, No orthopnea, No palpitations Abdomen: No GI bleeding, No constipation, No diarrhea, No nausea/vomiting, No pain Musculoskeletal: + joint pain (right knee - chronic); +R Rib/RUQ Pain Genitourinary - Male: + dysuria, No hematuria, No urinary frequency, No urinary hesitancy, No urinary incontinence, No urinary retention, No urinary urgency Neurologic: + balance problems, + memory loss, + numbness/tingling (right arm/ leg chronic), No vertigo, No weakness Psychiatric: + insomnia (last 2 days) Hematologic / Lymphatic: Deferred Integumentary: No bleeding, No color change, No itch, No new/changing skin lesions, No problem reported, No rash (Tara Foreman PA-C) Medications Current Inpatient Medications Medications (Trade) Dose Ordered Sig/Ronna Route Start Time Stop Time Status Last Admin Dose Admin Al Hydrox/Mg Hydrox/Simethicone (Maalox Max Susp) 15 ml Q4H PRN PO 09/13/16 11:30 10/13/16 11:29 Magnesium Hydroxide (Milk Of Magnesia Susp) 30 ml Q12H PRN PO 09/13/16 11:30 10/13/16 11:29 Ondansetron HCl (Zofran Inj) 4 mg Q6H PRN IV 09/13/16 11:30 10/13/16 11:29 Nitroglycerin (Nitrostat Tab) 0.4 mg UD PRN SL 09/13/16 11:30 10/13/16 11:29 Allopurinol (Zyloprim Tab) 300 mg QAM PO 09/14/16 09:00 10/14/16 08:59 09/14/16 07:55 300 MG Atorvastatin Calcium (Lipitor Tab) 40 mg QAM PO 09/14/16 09:00 10/14/16 08:59 09/14/16 07:51 40 MG Budesonide (Pulmicort Respules 0.5MG/ 2ML Neb Soln) 1 mg BIDR INH 09/13/16 20:00 10/13/16 19:59 09/14/16 08:17 1 MG Carvedilol (Coreg Tab) 12.5 mg BID PO 09/13/16 21:00 10/13/16 20:59 Finasteride (Proscar Tab) 5 mg QPM PO 09/13/16 21:00 10/13/16 20:59 09/13/16 20:58 5 MG Formoterol Fumarate (Perforomist 20MCG/2ML Neb Soln) 40 mcg BIDR INH 09/13/16 20:00 10/13/16 19:59 09/14/16 08:17 40 MCG Gabapentin (Neurontin Cap) 300 mg QPM PO 09/13/16 21:00 10/13/16 20:59 09/13/16 20:58 300 MG Levothyroxine Sodium (Synthroid Tab) 50 mcg DAILYBB PO 09/14/16 06:30 10/14/16 06:29 09/14/16 06:14 50 MCG Magnesium Oxide (Mag-Ox Tab) 400 mg QAM PO 09/14/16 09:00 10/14/16 08:59 09/14/16 07:54 400 MG Meclizine HCl (Antivert Tab) 25 mg Q6H PRN PO 09/13/16 11:30 10/13/16 11:29 Pantoprazole Sodium (Protonix Tab) 40 mg QPM PO 09/13/16 21:00 10/13/16 20:59 09/13/16 20:58 40 MG Tamsulosin HCl (Flomax Cap) 0.4 mg QPM PO 09/13/16 21:00 10/13/16 20:59 09/13/16 20:57 0.4 MG Insulin Glargine (Lantus Solostar Pen) 20 unit HS SC 09/13/16 21:00 10/13/16 20:59 09/13/16 21:04 20 UNIT Lactulose (Chronulac Syrup) 30 gm BID PO 09/13/16 11:30 10/13/16 11:29 09/14/16 07:53 30 GM Paroxetine HCl (pAXil TAB) 10 mg QAM PO 09/14/16 09:00 10/14/16 08:59 09/14/16 07:51 10 MG Lidocaine (Lidoderm Patch 5%) 2 patch QAM TD 09/13/16 11:30 10/13/16 11:29 09/14/16 07:55 2 PATCH Hydromorphone HCl (Dilaudid Inj) 0.5 mg Q4H PRN IV 09/13/16 11:30 09/27/16 11:29 09/14/16 13:27 0.5 MG Diclofenac Sodium (Voltaren 1% Top Gel) 1 appln QID EXT 09/13/16 17:00 10/13/16 16:59 09/14/16 13:28 1 APPLN Insulin Aspart (novoLOG ASPART) SLIDING SCALE G... ACHS SC 09/13/16 16:00 10/13/16 15:59 09/14/16 12:34 3 UNITS Glucose (Glucose 40% Gel) 15-30 GRAMS 15 GRAMS... UD PRN PO 09/13/16 13:15 10/13/16 13:14 Glucose (Glucose Chew Tab) 4-8 Tablets 4 Tabl... UD PRN PO 09/13/16 13:15 10/13/16 13:14 Dextrose (Dextrose 50% 50ML Syringe) 25-50ML OF 50% DW IV FOR... UD PRN IV 09/13/16 13:15 10/13/16 13:14 Glucagon (Glucagon Inj) 1 mg UD PRN SQ 09/13/16 13:15 10/13/16 13:14 Thiamine HCl (Vitamin B-1 Tab) 200 mg BID PO 09/14/16 09:00 10/14/16 08:59 09/14/16 07:51 200 MG Miscellaneous (Remove Lidoderm Patch) 1 ea DAILY@21 N/A 09/13/16 21:00 10/13/16 20:59 09/13/16 20:56 1 EA Cyanocobalamin (Vitamin B-12 Inj) 1,000 mcg DAILY IM 09/14/16 09:00 10/14/16 08:59 09/14/16 07:54 1,000 MCG Aspirin (Ecotrin Tab) 81 mg QAM PO 09/15/16 09:00 10/15/16 08:59 Miscellaneous Information (Pharmacist Discharge Med Rec Consult) 1 ea UD PRN N/A 09/14/16 13:15 10/14/16 13:14 (Tara Foreman PA-C) Objective Vital Signs Date Time Temp Pulse Resp B/P Pulse Ox O2 Delivery O2 Flow Rate FiO2 09/14/16 12:00 Room Air 09/14/16 11:45 36.5 60 18 107/65 98 Room Air 09/14/16 08:17 61 16 98 Room Air 09/14/16 08:00 Room Air 09/14/16 07:23 36.4 53 16 123/74 97 Room Air 09/14/16 04:54 36.4 55 16 151/86 97 Room Air 09/14/16 04:00 Room Air 09/14/16 00:00 Room Air 09/13/16 23:35 36.5 56 16 139/83 92 Room Air 09/13/16 20:08 79 16 94 Room Air 09/13/16 20:00 96 Room Air 09/13/16 19:55 36.4 54 16 134/75 98 Room Air 09/13/16 16:00 98 Room Air 09/13/16 15:50 36.4 52 18 142/84 98 Room Air (Tara Foreman PA-C) Physical Exam Notes: PHYSICAL EXAM: General Appearance: WDWN in NAD who is A&O x 3 Head: normocephalic, atraumatic Eyes: Pupils remain pinpoint but are reactive to light; EOMI however gaze largely in horizontal tracks cannot be maintained ENT: Pharynx normal, + hearing aids b/l Neck: Supple; Trachea midline; Neg JVD; Neg lymphadenopathy Respiratory/Chest: CTA in all lung koch bilaterally; Respirations unlabored ; Neg accessory muscle use Cardiovascular: RRR, + systolic murmur (1-2/6 RUSB) Abdomen/GI: Soft, non-tender, non-distended; Positive BS x 4 quadrants; Neg organomegaly Back: + paravertebral/vertebral tenderness; + R rib pain/reproducible Extremities/Musculoskelatal: mild pedal edema on R Neurologic: Neuro exam was inconclusive as multiple attempts were slightly contradictory; appears to have mild R sided weakness in comparison to L; facial movements symmetrical; no evidence of pronator drift Psychiatric: Appropriate mood/affect Skin: Normal Color; Warm/Dry; Neg rashes, ecchymosis, lacerations/ulcerations (Tara Foreman, SANAC) Laboratory Results Last 24 Hours Test 09/13/16 15:20 09/13/16 16:27 09/13/16 20:24 09/13/16 20:49 Troponin I < 0.015 ng/ml < 0.015 ng/ml Bedside Glucose 145 mg/dl 131 mg/dl Test 09/14/16 05:44 09/14/16 07:41 09/14/16 11:52 09/14/16 14:25 Sodium Level 143 mmol/L Potassium Level 4.3 mmol/L Chloride Level 110 mmol/L Carbon Dioxide Level 28 mmol/L Anion Gap 5.0 mmol/L Blood Urea Nitrogen 21 mg/dl Creatinine 1.30 mg/dl Est Creatinine Clear Calc Drug Dose 57.5 ml/min Estimated GFR () 61.9 Estimated GFR (Non- 53.4 BUN/Creatinine Ratio 16.5 Random Glucose 104 mg/dl Calcium Level 9.5 mg/dl Ammonia 110.0 umol/L Bedside Glucose 98 mg/dl 138 mg/dl (Tara Foreman PA-C) Assessment and Plan Mr. Bonner is a 76 y/o male with PMHx of Cirrhosis (FUENTES? Alcohol?), HTN, T2DM, Syncope/Falls, CVA/TIAs, T12 Compression Fx who presents for multiple complaints - largely for frequent falls with episodes of lightheadedness/ dizziness preceding Syncope and Frequent Falls: TIA vs Arrhythmia vs Hepatic Encephalopathy vs Metabolic Encephalopathy vs CVA (R/O'd) - Brain CT and MRI - R/O'd acute CVA - given patient's risk factors and complaints cannot completely disregard TIA possibility -- Does report multiple family members with CVA/TIA issues including a daughter - question hypercoagulable state? -- MRA Head and Carotid U/S (Apr) - no significant abnormality or hemodynamically significant stenosis - ASA 81 mg daily, atorvastatin 40 mg daily - Continue monitoring on telemetry for arrhythmia -- Echo (Apr) - EF 65-70% with class I diastolic dysfunction but evidence of a mild aortic stenosis - Orthostatics - pending - Consult neurology - recommendations reviewed - need for cardiac cause exploration - Consult cardiology - follows with Lani - recommendations appreciated Hepatic Encephalopathy with Hyperammonemia: - Lactulose 30 g BID - titrate for 2-3 BMs/daily - Monitor ammonia level - consideration for rifaximin? - Follows with Dr. Bartlett T12 Fx: - Lidoderm patch and Dilaudid PRN Thrombocytopenia: Cirrhosis? - Continue to monitor B12 Deficiency (Low Norm): - Between neuropathy from B12 and possible diabetic neuropathy - this is likely explanation for symptoms - B12 1000 mcg IM daily 3 days then weekly 4 weeks then monthly - Complaints of diplopia - awaiting B1 to evaluate for deficiency - thiamine Dysuria: U/A negative - await culture T2DM: - Lantus 20 units SC daily and SSI with carb coverage HTN: - Coreg 3.125 mg BID COPD without Exacerbation: - Pulmicort 1 mg BID and formoterol 40 mcg BID Hypothyroidism: Compensated: - Synthroid 50 mcg daily DVT Prophylaxis: AGATA/SCDs - avoid chemical prophylaxis 2/2 thrombocytopenia Code Status: FULL RESUSCITATION - NO PROLONGED INTUBATED/VENTILATION or LIFE- SAVE MEASURES INDEFINITELY Disposition: PT/OT Evaluations - patient considering [facility] - lives alone with frequent falls Continued [facility] stay due to: ambulation difficulties Discharge planning: rehab hospital (Tara Foreman, P[facility]) Reviewed: Pt Seen/Exam by Me (Janine Flores MD) History Physician Javascript Programmer Supervision Note: I interviewed and examined the patient. Discussed with RANJITH Foreman and agree with findings and plan as documented in the note. Any exceptions or clarifications are listed here: Patient feeling better now. He had a normal MRI of the brain showing no acute stroke. His B12 level is low which could explain some of his paresthesias. He does have bradycardia but this is ongoing as per his son. He has had intermittent lightheadedness for several weeks. His son does report that he's been taking hydrocodone for his back pain and that may have contributed to his fall. The son also reports that the patient's lactulose bottle has had the same amount and it for the last month and does not think that he's been taking regularly. Vitals reviewed No acute distress Bradycardic, regular rhythm, 2/6 systolic ejection murmur at right upper sternal border Clear to auscultation bilaterally, no wheezes crackles or rhonchi Extremities no edema, moving all extremities well with some mild weakness on the right side 76-year-old male here with multiple episodes of near syncope and with a fall. This chronic paresthesias likely secondary to a 12 deficiency and polyneuropathy. With sinus bradycardia. Question if is having sinus pauses or high-grade AV xochitl block as cause of his near syncope. -Consult cardiology and may need long-term monitoring as an outpatient -Check TSH and orthostatics For hyperammonemia, this may be contributing to his altered mental status- despite the high level today over 100, he seems mentally clear-encouraged him to take his lactulose -Would benefit from acute rehabilitation upon discharge -Begin intramuscular replacement vitamin B12 -Appreciate neurology recommendations -Of note, the son pointed out that a lot of medications on his admission medication reconciliation were wrong. He did not have a list when he came in but he will bring the bottles tomorrow. For now, he knows for sure that the Coreg is reduced to 3.125 mg twice a day, and he does not think that the patient is on finasteride or tamsulosin at home. Documented By: Janine Flores (Janine Flores MD)
[2016-09-14] MEDS: PANTOprazole SOD 40 MG TAB PO SCH (21:00)
[2016-09-14] MEDS: CARVEDILOL 3.125 MG TAB PO SCH (21:00)
[2016-09-14] MEDS: GABAPENTIN 300 MG CAP PO SCH (21:01)
[2016-09-14] MEDS: INSULIN GLARGINE SOLOSTAR 100 UNITS/ML 3 ML PEN SC SCH (21:10)
[2016-09-15] VITALS (10 sets, daily range): BP systolic 108–153; BP diastolic 66–91; PULSE 48–78; TEMP 36.4–37; O2SAT 91–98
[2016-09-15] MEDS: HYDROmorphone INJ 0.5 MG/0.5 ML SYR IV PRN ×2 (05:45→17:26)
[2016-09-15] MEDS: LEVOTHYROXINE 50 MCG TAB PO SCH (05:46)
[2016-09-15 05:48] LABS: BUN/CREATININE RATIO 15.9 (10-20); CALCIUM 10.2 mg/dl (8.5-10.1); CREATININE 1.4 mg/dl (0.60-1.40); POTASSIUM 4.2 mmol/L (3.5-5.1)
[2016-09-15 06:04] LABS: CHOLESTEROL/HDL RATIO 2.2; THYROID STIMULATING HORMONE 1.3 uIu/ml (0.300-4.500)
[2016-09-15 06:07] LABS: INR 1.1 (0.9-1.1)
[2016-09-15 06:11] LABS: HEMATOCRIT 36.5 % (42-52); MEAN CELL VOLUME 89.9 fL (80-100); MEAN CORPUSCULAR HEMOGLOBIN 31.5 pg (25-34); MEAN CORPUSCULAR HGB CONC 35.1 g/dl (32-36); RED BLOOD COUNT 4.06 M/uL (4.7-6.1)
[2016-09-15 06:14] LABS: MEAN PLATELET VOLUME 9.4 fL (7.4-10.4); PLATELET COUNT 83 K/uL (130-400)
[2016-09-15] MEDS: BUDESONIDE 0.5 MG/2 ML VIAL (PULMICORT) INH SCH ×2 (07:43→19:51)
[2016-09-15] MEDS: FORMOTEROL FUMA NEBULIZER SOLN 20 MCG/2 ML VIAL INH SCH ×2 (07:43→19:51)
[2016-09-15] MEDS: DICLOFENAC SOD 1% GEL 100 GM TUBE EXT SCH ×4 (08:14→21:00)
[2016-09-15] MEDS: ALLOPURINOL 300 MG TAB PO SCH (08:15)
[2016-09-15] MEDS: MAGNESIUM OXIDE 400 MG TAB PO SCH (08:15)
[2016-09-15] MEDS: CYANOCOBALAMIN 1000 MCG/ML VIAL IM SCH (08:15)
[2016-09-15] MEDS: LACTULOSE SYRUP 30 GM/45 ML UDP PO SCH ×2 (08:15→21:06)
[2016-09-15] MEDS: ASPIRIN 81 MG ECTAB PO SCH (08:16)
[2016-09-15] MEDS: THIAMINE HCL 100 MG TAB PO SCH ×2 (08:16→21:09)
[2016-09-15] MEDS: PAROXETINE 20 MG TAB PO SCH (08:17)
[2016-09-15] MEDS: ATORVASTATIN 40 MG TAB PO SCH (08:17)
[2016-09-15] MEDS: CARVEDILOL 3.125 MG TAB PO SCH ×2 (08:18→21:07)
[2016-09-15] MEDS: LIDODERM (LIDOCAINE) PATCH 5% TD SCH (08:18)
[2016-09-15] MEDS: INSULIN ASPART 100 UNITS/ML 3 ML PEN SC SCH ×4 (08:56→21:00)
--- NOTE | 2016-09-15 10:48 | EEG Procedure Note ---
EEG Procedure Note Date of Service Sep 15, 2016. Start / End Times Start Time: 9:29 AM End Time: 9:49 AM Referring Physician RANJITH Verdin History This is a 76-year-old male with transient right-sided weakness. EEG for further evaluation of possible seizure etiology Home Medication List Scheduled Allopurinol (Allopurinol), 300 MG PO QAM Atorvastatin (Lipitor), 40 MG PO QAM Budesonide (Pulmicort Respules 0.5MG/2ML), 2 ML INH BID Carvedilol (Carvedilol), 12.5 MG PO QAM Finasteride (Proscar), 5 MG PO QPM Formoterol Fumarate (Perforomist), 2 ML INH BID Gabapentin (Neurontin), 300 MG PO QPM Insulin Glargine (Toujeo Solostar), 20 UNITS INJ HS Lactulose (Encephalopathy) (Lactulose), 30 ML PO BID Levothyroxine Sodium (Synthroid), 50 MCG PO QAM Magnesium Oxide (Mag-Ox), 400 MG PO QAM Naproxen (Aleve), 220 MG PO DAILY Nitroglycerin (Nitrostat), 0.4 MG UT PRN Pantoprazole Sodium (Protonix), 40 MG PO QPM Paroxetine (Paroxetine HCl), 10 MG PO QAM Tamsulosin Hcl (Flomax), 0.4 MG PO QPM Scheduled PRN Hydrocodone/Acetaminophen 7.5MG/325MG ([place] 7.5MG/325MG), 1 TAB PO Q6H PRN for Pain Meclizine Hcl (Meclizine Hcl), 1 TAB PO Q6H PRN for Dizziness or Vertigo Inpatient Medication List Current Inpatient Medications Medications (Trade) Dose Ordered Sig/Ronna Route Start Time Stop Time Status Last Admin Dose Admin Al Hydrox/Mg Hydrox/Simethicone (Maalox Max Susp) 15 ml Q4H PRN PO 09/13/16 11:30 10/13/16 11:29 Magnesium Hydroxide (Milk Of Magnesia Susp) 30 ml Q12H PRN PO 09/13/16 11:30 10/13/16 11:29 Ondansetron HCl (Zofran Inj) 4 mg Q6H PRN IV 09/13/16 11:30 10/13/16 11:29 Nitroglycerin (Nitrostat Tab) 0.4 mg UD PRN SL 09/13/16 11:30 10/13/16 11:29 Allopurinol (Zyloprim Tab) 300 mg QAM PO 09/14/16 09:00 10/14/16 08:59 09/15/16 08:15 300 MG Atorvastatin Calcium (Lipitor Tab) 40 mg QAM PO 09/14/16 09:00 10/14/16 08:59 09/15/16 08:17 40 MG Budesonide (Pulmicort Respules 0.5MG/ 2ML Neb Soln) 1 mg BIDR INH 09/13/16 20:00 10/13/16 19:59 09/15/16 07:43 1 MG Formoterol Fumarate (Perforomist 20MCG/2ML Neb Soln) 40 mcg BIDR INH 09/13/16 20:00 10/13/16 19:59 09/15/16 07:43 20 MCG Gabapentin (Neurontin Cap) 300 mg QPM PO 09/13/16 21:00 10/13/16 20:59 09/14/16 21:01 300 MG Levothyroxine Sodium (Synthroid Tab) 50 mcg DAILYBB PO 09/14/16 06:30 10/14/16 06:29 09/15/16 05:46 50 MCG Magnesium Oxide (Mag-Ox Tab) 400 mg QAM PO 09/14/16 09:00 10/14/16 08:59 09/15/16 08:15 400 MG Pantoprazole Sodium (Protonix Tab) 40 mg QPM PO 09/13/16 21:00 10/13/16 20:59 09/14/16 21:00 40 MG Insulin Glargine (Lantus Solostar Pen) 20 unit HS SC 09/13/16 21:00 10/13/16 20:59 09/14/16 21:10 20 UNIT Lactulose (Chronulac Syrup) 30 gm BID PO 09/13/16 11:30 10/13/16 11:29 09/15/16 08:15 30 GM Paroxetine HCl (pAXil TAB) 10 mg QAM PO 09/14/16 09:00 10/14/16 08:59 09/15/16 08:17 10 MG Lidocaine (Lidoderm Patch 5%) 2 patch QAM TD 09/13/16 11:30 10/13/16 11:29 09/15/16 08:18 2 PATCH Hydromorphone HCl (Dilaudid Inj) 0.5 mg Q4H PRN IV 09/13/16 11:30 09/27/16 11:29 09/15/16 05:45 0.5 MG Diclofenac Sodium (Voltaren 1% Top Gel) 1 appln QID EXT 09/13/16 17:00 10/13/16 16:59 09/15/16 08:14 1 APPLN Insulin Aspart (novoLOG ASPART) SLIDING SCALE G... ACHS SC 09/13/16 16:00 10/13/16 15:59 09/15/16 08:56 2 UNITS Glucose (Glucose 40% Gel) 15-30 GRAMS 15 GRAMS... UD PRN PO 09/13/16 13:15 10/13/16 13:14 Glucose (Glucose Chew Tab) 4-8 Tablets 4 Tabl... UD PRN PO 09/13/16 13:15 10/13/16 13:14 Dextrose (Dextrose 50% 50ML Syringe) 25-50ML OF 50% DW IV FOR... UD PRN IV 09/13/16 13:15 10/13/16 13:14 Glucagon (Glucagon Inj) 1 mg UD PRN SQ 09/13/16 13:15 10/13/16 13:14 Thiamine HCl (Vitamin B-1 Tab) 200 mg BID PO 09/14/16 09:00 10/14/16 08:59 09/15/16 08:16 200 MG Miscellaneous (Remove Lidoderm Patch) 1 ea DAILY@21 N/A 09/13/16 21:00 10/13/16 20:59 09/14/16 21:03 1 EA Cyanocobalamin (Vitamin B-12 Inj) 1,000 mcg DAILY IM 09/14/16 09:00 10/14/16 08:59 09/15/16 08:15 1,000 MCG Aspirin (Ecotrin Tab) 81 mg QAM PO 09/15/16 09:00 10/15/16 08:59 09/15/16 08:16 81 MG Miscellaneous Information (Pharmacist Discharge Med Rec Consult) 1 ea UD PRN N/A 09/14/16 13:15 10/14/16 13:14 Carvedilol (Coreg Tab) 3.125 mg BID PO 09/14/16 21:00 10/14/16 20:59 Description This is a 21 electrode EEG with a single channel dedicated to limited EKG. The electrodes were placed in accordance with the International 10-20 system. At the start of the recording the patient was in an awake altered mental status state. Background was well organized and composed of symmetric mixed theta/ alpha and beta frequencies. There was a symmetric well-formed low amplitude 7-8 Hz posterior dominant rhythm that was reactive to eye opening and closure. Hyperventilation was not done. Intermittent photic stimulation at various frequencies produced no abnormalities. Drowsiness was indicated by loss of muscle artifact and slowing of the background rhythm. There was no sleep transients. Interpretation This is an abnormal routine EEG secondary to mild background slowing. There was no electrographic seizures or epileptiform discharges. Clinical Correlation This EEG indicates a mild encephalopathy of nonspecific etiology.
--- NOTE | 2016-09-15 13:11 | Clinical Documentation Query ---
QUERY 1 OF [address] BANG, In your clinical opinion is this patient being managed for: ( x ) Urinary tract infection, POA ( ) Other explanation of clinical findings (Please Explain) ( ) Unable to determine (Please Define) ( ) Need to Discuss ( ) Not Agree The medical record reflects the following clinical findings, treatment, and risk factors. Clinical Indicators:76 yo male presenting with syncope and frequent falls, dysuria, UA cx prelim with coag negative staph. Sensitivities now available. Treatment: UA cx final is pending, IV fluid bolus in ER Risk Factors: age, DM QUERY 2 OF 2 To assist coding with appropriate code selection, please document level of acuity of possible hepatic encephalopathy In your clinical opinion is this patient being managed for: (x ) Acute on chronic hepatic encephalopathy ( ) Other explanation of clinical findings (Please Explain) ( ) Unable to determine (Please Define) ( ) Need to Discuss ( ) Not Agree The medical record reflects the following clinical findings, treatment, and risk factors. Clinical Indicators: H/P indicates ? of mild hepatic encephalopathy. Hepatic encephalopathy continues to carry thru subsequent progress notes. Son indicated suspicion that pt not taking lactulose properly and friends noted mental status changes over the past week. CT head showed no acute findings. Ammonia level 59/110/64 Treatment: lactulose bid, CT head. Risk Factors:medication noncompliance Please clarify and document your clinical opinion in the progress notes and discharge summary. Terms such as "probable", "suspected", "likely", "questionable", "possible", or "still to be ruled out" are acceptable. IF IN AGREEMENT, YOU MUST DOCUMENT ABOVE DIAGNOSTIC STATEMENT IN DAILY PROGRESS NOTES AND DISCHARGE SUMMARY. This document is not part of the patient's record. Thank You, Mary Coto RN [phone]
[2016-09-15] MEDS ORDERED: NURSING VERBAL MED ORDER ONE (14:45)
--- NOTE | 2016-09-15 15:10 | CARDIOLOGY CONSULTATION ---
DATE OF CONSULTATION: 09/15/2016 CONSULTATION FOR: Lance Trejo Hospitalist. REASON FOR CONSULTATION: Frequent falls. HISTORY OF PRESENT ILLNESS: Mr. Bonner is an elderly 76-year-old male patient who had a stroke 2 years ago with some right-sided residual weakness. He also has a history of FUENTES with cirrhosis and elevated ammonia levels. Recently, he has been having what sounds like mechanical falls. Last week, he was driving his lawn tractor around and almost drove it off a wall and sustained a compression fracture of his thoracic spine. The patient has been treated for that and has been given some analgesics. He also on admission had an elevated ammonia level, perhaps from not taking his lactulose. I have been asked to see him in regard to these frequent falls. It should be noted that in June of this year he was seen by Dr. Mackey, he did an extensive workup for nonsymptomatic bradycardia. That workup included a 1 week monitor which failed to show any significant bradycardic events. He had been on a higher dose of carvedilol 12.5 mg b.i.d. and prior to the monitor it was reduced to 3.125 mg b.i.d. In April, during the hospital admission, he had an echocardiogram that showed normal LV function and no significant valvular disease. He also had carotid studies at that time that failed to show any significant carotid artery disease. The patient has had a Lexiscan nuclear stress test and dobutamine stress echocardiogram last year, both failed to show any evidence of ischemia. In late 2014, he had a cardiac catheterization that showed minimal moderate disease of the ramus artery and otherwise minor nonobstructive coronary artery disease. He has had no activity-related chest pain or progressive shortness of breath. He does not really state that he had a syncopal episode. Just prior to this admission, he was moving towards his kitchen and went down. He was cognitive enough to take his phone and call his son who helped him get back on his feet. He does utilize a walker but not one with wheels. Neurology has been evaluating him and he has had several scans already that have been negative in regard to new acute findings. ALLERGIES: DOBUTAMINE IODINATED DIAGNOSTIC AGENTS, MEPERIDINE, OXYCODONE, PERFLUTREN, PROPYLENE GLYCOL. PAST MEDICAL HISTORY: As outlined in the history of chief complaint. Two years ago, he had a CVA and has residual right-sided weakness. He has had a stress test as well as a cardiac catheterization that showed minor nonobstructive coronary artery disease. He is a diabetic. His most recent echocardiogram shows normal LV function. He also had an event monitor in July for 1 week that did not show any significant bradycardia and no symptoms during the monitoring time. SOCIAL HISTORY: He lives independently. He is a nonsmoker. FAMILY MEDICAL HISTORY: Noncontributory. REVIEW OF SYSTEMS: A 10-point review of systems is negative except for the history of chief complaint. PHYSICAL EXAMINATION: GENERAL: He is alert and oriented. VITAL SIGNS: Blood pressure is 122/70, pulse is regular and he is in a sinus rhythm with a rate of 63 beats per minute on the compliance monitor, he is afebrile. HEENT: He is normocephalic. Pupils are equal and reactive to light. Extraocular muscles are intact bilaterally. NECK: The neck veins are flat. Carotids have good upstrokes bilaterally without bruits. Thyroid is nonpalpable. RESPIRATORY: Breath sounds equal bilaterally and clear to auscultation. CARDIOVASCULAR: Heart has a regular rhythm. Normal S1, S2. No S3, S4. No cardiac rubs or murmurs. GASTROINTESTINAL: Abdomen is soft, nontender without organomegaly. EXTREMITIES: Free of edema, digit clubbing, or cyanosis. NEUROLOGIC: Grossly intact. SKIN: Warm to touch. LYMPH NODES: Negative to palpation. LABORATORY AND IMAGING DATA: Cardiac markers are negative. EKG on admission reveals the sinus rhythm with PACs and nonspecific ST and T-wave changes. On the telemetry, he has had no bradycardic events rather arrhythmias. IMPRESSION: 1. Multiple falls which are most likely mechanical. 2. Previous cerebrovascular accident. 3. Cirrhosis with hepatic encephalopathy. 4. Diabetes mellitus. RECOMMENDATIONS: I do not believe any additional inpatient cardiac workup is indicated. We could repeat an event monitor for him such as the [employer] can be arranged after his discharge. For now, I would leave him on the compliance monitor.
--- NOTE | 2016-09-15 15:34 | Neurology Progress Notes ---
Neurology Progress Note Date of Service Sep 15, 2016. Aida Johnson is a 76yo male with h/o HTN, COPD, gout, liver disease, and prior TIA/ CVA presents after having had a fall about 0500 this am. He was walking with his walker and as he got into his kitchen he fell onto the ground. He thinks he had a brief LOC but was not confused afterwards. He states he had his phone in his pocket and called his son. His son is currently in the room and states he was clear on the phone and he was able to get him up off the floor. He has had several falls over the past month and appears similar to the current fall. He did notice his right side was weaker than the residual he had from his previous stroke. He was somewhat light headed but no diaphoretic and then just went down. His HR and BP prior to the event was pulse 51 and BP 117/90. He states his HR at times goes into the 50s. He had an accident with his tractor last week and from the jerking of the tractor he had a compression fracture of T12. Since then according to son he has not been taking his lactulose for his ammonia level because he didn't want to keep running to the bathroom due to back pain. Today he is waiting to hear from [place] to go there for rehab. He states he thinks he had a seizure disorder as a child because he remembers having to sleep with his brother if he had a seizure and his brother was instructed to put a spoon on his tongue if he had one. He doesn't know what medications he was on he thought it was a cardiac medications. denies Current CP, SOB, abdominal pain, N, V, +back pain, right UE/LE weakness. Objective Date Time Temp Pulse Resp B/P Pulse Ox O2 Delivery O2 Flow Rate FiO2 09/15/16 12:00 Room Air 09/15/16 11:38 36.6 63 18 122/76 97 Room Air 09/15/16 08:00 Room Air 09/15/16 07:40 78 18 97 Room Air 09/15/16 07:16 36.8 53 18 153/91 98 Room Air 09/15/16 04:35 36.4 48 16 108/66 97 Room Air 09/15/16 04:00 Room Air 09/15/16 00:00 Room Air 09/14/16 23:56 36.6 57 20 95/62 99 Room Air 09/14/16 20:45 78 18 97 Room Air 09/14/16 20:10 36.6 55 20 137/76 99 Room Air 09/14/16 20:00 Room Air 09/14/16 16:36 36.5 56 18 135/53 99 Room Air 60 122/76 61 123/73 09/14/16 16:00 Room Air 09/14/16 15:33 36.5 84 18 124/78 95 Room Air Last 24 Hours Test 09/14/16 16:45 09/14/16 20:37 09/15/16 05:01 09/15/16 07:23 Bedside Glucose 98 mg/dl 95 mg/dl 92 mg/dl White Blood Count 6.10 K/uL Red Blood Count 4.06 M/uL Hemoglobin 12.8 g/dL Hematocrit 36.5 % Mean Corpuscular Volume 89.9 fL Mean Corpuscular Hemoglobin 31.5 pg Mean Corpuscular Hemoglobin Concent 35.1 g/dl RDW Standard Deviation 50.7 fL RDW Coefficient of Variation 15.5 % Platelet Count 83 K/uL Mean Platelet Volume 9.4 fL Prothrombin Time 12.0 SECONDS Prothromb Time International Ratio 1.1 Sodium Level 143 mmol/L Potassium Level 4.2 mmol/L Chloride Level 109 mmol/L Carbon Dioxide Level 31 mmol/L Anion Gap 3.0 mmol/L Blood Urea Nitrogen 22 mg/dl Creatinine 1.40 mg/dl Est Creatinine Clear Calc Drug Dose 53.1 ml/min Estimated GFR () 56.6 Estimated GFR (Non- 48.8 BUN/Creatinine Ratio 15.9 Random Glucose 104 mg/dl Calcium Level 10.2 mg/dl Ammonia 64.0 umol/L Triglycerides Level 84 mg/dl Cholesterol Level 86 mg/dl HDL Cholesterol 40 mg/dl LDL Cholesterol, Calculated 29 mg/dl VLDL Cholesterol, Calculated 17 mg/dl Cholesterol/HDL Ratio 2.2 Thyroid Stimulating Hormone (TSH) 1.300 uIu/ml Test 09/15/16 11:54 Bedside Glucose 124 mg/dl Imaging: EEG- This EEG indicates a mild encephalopathy of nonspecific etiology. Exam: Physical Exam: Constitutional:appearance nourished, healthy and normal Ears, Nose, Mouth and Throat: mucous membranes moist, no injection and skin normal, eyes normal Cardiovascular: normal S-1 and S-2 and regular rate and rhythm Respiratory: clear to auscultation (CTA) and no rales, rhonchi or wheeze Musculoskeletal: mild peripheral edema Skin: no stigmata of neurocutaneous disease noted and normal and intact Eyes: extraocular muscles intact (EOMI) and pupils equal, round and reactive to light (PERRL) NEUROLOGIC EXAMINATION: Mental status: Alert and interactive Oriented to person, [facility] 2017 Speech fluent with no evidence of aphasia Cranial Nerves facial symmetry Coordination: finger to nose without bi pass Gait/Stance: Posture sitting bedside Motor: right arm drifts without pronation . Strength: right hand field human resources manager biceps triceps 4/5 left hand field human resources manager biceps triceps 5/5, right hip flex lifts against gravity breakaway against resistance left 5/5 Current Inpatient Medications Medications (Trade) Dose Ordered Sig/Ronna Route Start Time Stop Time Status Last Admin Dose Admin Al Hydrox/Mg Hydrox/Simethicone (Maalox Max Susp) 15 ml Q4H PRN PO 09/13/16 11:30 10/13/16 11:29 Magnesium Hydroxide (Milk Of Magnesia Susp) 30 ml Q12H PRN PO 09/13/16 11:30 10/13/16 11:29 Ondansetron HCl (Zofran Inj) 4 mg Q6H PRN IV 09/13/16 11:30 10/13/16 11:29 Nitroglycerin (Nitrostat Tab) 0.4 mg UD PRN SL 09/13/16 11:30 10/13/16 11:29 Allopurinol (Zyloprim Tab) 300 mg QAM PO 09/14/16 09:00 10/14/16 08:59 09/15/16 08:15 300 MG Atorvastatin Calcium (Lipitor Tab) 40 mg QAM PO 09/14/16 09:00 10/14/16 08:59 09/15/16 08:17 40 MG Budesonide (Pulmicort Respules 0.5MG/ 2ML Neb Soln) 1 mg BIDR INH 09/13/16 20:00 10/13/16 19:59 09/15/16 07:43 1 MG Formoterol Fumarate (Perforomist 20MCG/2ML Neb Soln) 40 mcg BIDR INH 09/13/16 20:00 10/13/16 19:59 09/15/16 07:43 20 MCG Gabapentin (Neurontin Cap) 300 mg QPM PO 09/13/16 21:00 10/13/16 20:59 09/14/16 21:01 300 MG Levothyroxine Sodium (Synthroid Tab) 50 mcg DAILYBB PO 09/14/16 06:30 10/14/16 06:29 09/15/16 05:46 50 MCG Magnesium Oxide (Mag-Ox Tab) 400 mg QAM PO 09/14/16 09:00 10/14/16 08:59 09/15/16 08:15 400 MG Pantoprazole Sodium (Protonix Tab) 40 mg QPM PO 09/13/16 21:00 10/13/16 20:59 09/14/16 21:00 40 MG Insulin Glargine (Lantus Solostar Pen) 20 unit HS SC 09/13/16 21:00 10/13/16 20:59 09/14/16 21:10 20 UNIT Lactulose (Chronulac Syrup) 30 gm BID PO 09/13/16 11:30 10/13/16 11:29 09/15/16 08:15 30 GM Paroxetine HCl (pAXil TAB) 10 mg QAM PO 09/14/16 09:00 10/14/16 08:59 09/15/16 08:17 10 MG Lidocaine (Lidoderm Patch 5%) 2 patch QAM TD 09/13/16 11:30 10/13/16 11:29 09/15/16 08:18 2 PATCH Hydromorphone HCl (Dilaudid Inj) 0.5 mg Q4H PRN IV 09/13/16 11:30 09/27/16 11:29 09/15/16 05:45 0.5 MG Diclofenac Sodium (Voltaren 1% Top Gel) 1 appln QID EXT 09/13/16 17:00 10/13/16 16:59 09/15/16 13:16 1 APPLN Insulin Aspart (novoLOG ASPART) SLIDING SCALE G... ACHS SC 09/13/16 16:00 10/13/16 15:59 09/15/16 12:52 2 UNITS Glucose (Glucose 40% Gel) 15-30 GRAMS 15 GRAMS... UD PRN PO 09/13/16 13:15 10/13/16 13:14 Glucose (Glucose Chew Tab) 4-8 Tablets 4 Tabl... UD PRN PO 09/13/16 13:15 10/13/16 13:14 Dextrose (Dextrose 50% 50ML Syringe) 25-50ML OF 50% DW IV FOR... UD PRN IV 09/13/16 13:15 10/13/16 13:14 Glucagon (Glucagon Inj) 1 mg UD PRN SQ 09/13/16 13:15 10/13/16 13:14 Thiamine HCl (Vitamin B-1 Tab) 200 mg BID PO 09/14/16 09:00 10/14/16 08:59 09/15/16 08:16 200 MG Miscellaneous (Remove Lidoderm Patch) 1 ea DAILY@21 N/A 09/13/16 21:00 10/13/16 20:59 09/14/16 21:03 1 EA Cyanocobalamin (Vitamin B-12 Inj) 1,000 mcg DAILY IM 09/14/16 09:00 10/14/16 08:59 09/15/16 08:15 1,000 MCG Aspirin (Ecotrin Tab) 81 mg QAM PO 09/15/16 09:00 10/15/16 08:59 09/15/16 08:16 81 MG Miscellaneous Information (Pharmacist Discharge Med Rec Consult) 1 ea UD PRN N/A 09/14/16 13:15 10/14/16 13:14 Carvedilol (Coreg Tab) 3.125 mg BID PO 09/14/16 21:00 10/14/16 20:59 Tamsulosin HCl (Flomax Cap) 0.4 mg PM PO 09/15/16 21:00 10/15/16 20:59 Impression 76 year old male s/p fall, R sided weakness Plan 1. MRI with no evidence of acute stroke- done without contrast 2. correct ammonia level- down from 110 to 64 continue lactulose 3. orthostatic blood pressures -not orthostatic 4. will need cardionet to evaluate for arrhythmia 5. carotid doppler and echo was done on previous visit 6. may be narcotic related due to T12 fracture. may need to be referred at some point for kyphoplasty if pain doesn't resolve 7. back brace issued 8. awaiting transfer to rehab. I have seen and discussed above patient with Dr Najma Mendez, neurology FAll at home, in setting of new t compression fx, narcotics. Suspect meds/ monitor for orthostasis and hyperammonemia. Defer to primary re need for cardionet. Will sign off. Pt does not need follow-up with us. SOM Mendez MD
--- NOTE | 2016-09-15 17:57 | Hospitalist Progress Note ---
Hospitalist Progress Note Date of Service Sep 15, 2016. Subjective Pt evaluation today including: conversation w/ patient, physical exam Patient feeling very well today, was up with physical therapy and still feels like he is going to fall. He is mentally clear. Still feels lightheaded at times. Sinus bradycardia on telemetry. Discussed the case with Dr. Slaughter of cardiology today and apparently the patient just had a 1 week event monitor in June that was normal. However, the patient denies any symptoms during that time. All Other Systems: Reviewed and Negative Objective Vital Signs Date Time Temp Pulse Resp B/P Pulse Ox O2 Delivery O2 Flow Rate FiO2 09/15/16 15:19 36.8 73 18 119/74 98 Room Air 09/15/16 12:00 Room Air 09/15/16 11:38 36.6 63 18 122/76 97 Room Air 09/15/16 08:00 Room Air 09/15/16 07:40 78 18 97 Room Air 09/15/16 07:16 36.8 53 18 153/91 98 Room Air 09/15/16 04:35 36.4 48 16 108/66 97 Room Air 09/15/16 04:00 Room Air 09/15/16 00:00 Room Air 09/14/16 23:56 36.6 57 20 95/62 99 Room Air 09/14/16 20:45 78 18 97 Room Air 09/14/16 20:10 36.6 55 20 137/76 99 Room Air 09/14/16 20:00 Room Air Physical Exam General Appearance: WD/WN, no apparent distress (sitting in chair) Eyes: normal inspection, sclerae normal ENT: hearing grossly normal, + pertinent finding (bulbous nose) Neck: trachea midline Respiratory/Chest: lungs clear, normal breath sounds, no respiratory distress, no accessory muscle use Cardiovascular: regular rate, rhythm, no edema, no gallop, + diastolic murmur ( 2/6 heard best at right upper sternal border) Abdomen: normal bowel sounds, non tender, soft Extremities: non-tender, no pedal edema, no calf tenderness Neurologic/Psychiatric: alert, normal mood/affect Skin: normal color, warm/dry, no rash Laboratory Results Last 24 Hours Test 09/14/16 20:37 09/15/16 05:01 09/15/16 07:23 09/15/16 11:54 Bedside Glucose 95 mg/dl 92 mg/dl 124 mg/dl White Blood Count 6.10 K/uL Red Blood Count 4.06 M/uL Hemoglobin 12.8 g/dL Hematocrit 36.5 % Mean Corpuscular Volume 89.9 fL Mean Corpuscular Hemoglobin 31.5 pg Mean Corpuscular Hemoglobin Concent 35.1 g/dl RDW Standard Deviation 50.7 fL RDW Coefficient of Variation 15.5 % Platelet Count 83 K/uL Mean Platelet Volume 9.4 fL Prothrombin Time 12.0 SECONDS Prothromb Time International Ratio 1.1 Sodium Level 143 mmol/L Potassium Level 4.2 mmol/L Chloride Level 109 mmol/L Carbon Dioxide Level 31 mmol/L Anion Gap 3.0 mmol/L Blood Urea Nitrogen 22 mg/dl Creatinine 1.40 mg/dl Est Creatinine Clear Calc Drug Dose 53.1 ml/min Estimated GFR () 56.6 Estimated GFR (Non- 48.8 BUN/Creatinine Ratio 15.9 Random Glucose 104 mg/dl Calcium Level 10.2 mg/dl Ammonia 64.0 umol/L Triglycerides Level 84 mg/dl Cholesterol Level 86 mg/dl HDL Cholesterol 40 mg/dl LDL Cholesterol, Calculated 29 mg/dl VLDL Cholesterol, Calculated 17 mg/dl Cholesterol/HDL Ratio 2.2 Thyroid Stimulating Hormone (TSH) 1.300 uIu/ml Test 09/15/16 16:26 Bedside Glucose 113 mg/dl Assessment and Plan This patient is a 76-year-old male here a past medical history of cirrhosis ( related to hemachromatosis and possibly alcohol), hypertension, diabetes mellitus type 2, history of CVA/TIAs/T12 compression fracture, who presents with with multiple episodes of near syncope and with a fall. He has chronic paresthesias likely secondary to a B12 deficiency and polyneuropathy. 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 Orthostatics are negative. TSH is normal. This may be related to his hyperammonemia, hydrocodone use for his compression fracture, and residual weakness from his CVA as well as neuropathy from B12 deficiency and/or diabetic neuropathy. Near Syncope and Frequent Falls: TIA not likely, acute CVA ruled out vs Arrhythmia vs Hepatic Encephalopathy -MRI brain negative for acute CVA -- MRA Head and Carotid U/S (Dec) - no significant abnormality or hemodynamically significant stenosis - Continue ASA 81 mg daily, atorvastatin 40 mg daily - Continue monitoring on telemetry for arrhythmia -- Echo (Apr) - EF 65-70% with class I diastolic dysfunction but evidence of a mild aortic stenosis -Consult cardiology will need long-term monitoring as an outpatient-we will try to arrange CardioNet for at [facility] upon discharge For hyperammonemia, this may be contributing to his altered mental status- despite the high level today over 100, he seems mentally clear-encouraged him to take his lactulose -Would benefit from acute rehabilitation upon discharge -Begin intramuscular replacement vitamin B12 -Appreciate neurology recommendations -Medication list and bottles were brought in by the son today and changes were made to the medication list Hepatic Encephalopathy with Hyperammonemia, secondary to his cirrhosis: Ammonia level went from 59-->110, now down to 64 with taking lactulose. EEG performed this admission shows mild encephalopathy that is nonspecific. Son reports that patient was not taking his lactulose at home -Encouraged him to take Lactulose 30 g BID - titrate for 2-3 BMs/daily - Monitor ammonia level - consideration for rifaximin? - Follows with Dr. 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 -Continue to monitor with CBC B12 Deficiency (Low Norm): B12 level 259 - B12 1000 mcg IM daily 3 days then weekly 4 weeks then monthly - Complaints of diplopia - awaiting B1 to evaluate for deficiency - thiamine level is pending Dysuria: U/A negative -urine culture with greater than 100 K coag-negative staph , however this is asymptomatic bacteriuria and I will not treated with antibiotics T2DM: Glucose levels are stable, hemoglobin A1c excellent at 6.1% - Continue Lantus 20 units SC daily and SSI with carb coverage HTN: Well-controlled -Continue Coreg 3.125 mg BID COPD without Exacerbation: Stable, no issues - Pulmicort 1 mg BID and formoterol 40 mcg BID Hypothyroidism: TSH here is normal -Continue Synthroid 50 mcg daily DVT Prophylaxis: AGATA/SCDs -it is safe to add heparin subcutaneous Code Status: FULL RESUSCITATION - NO PROLONGED INTUBATED/VENTILATION Disposition: PT/OT Evaluations - patient considering [facility] - lives alone with frequent falls -Can be discharged likely tomorrow
[2016-09-15] MEDS ORDERED: TAMSULOSIN HCL 0.4 MG CAP PO SCH (21:00)
[2016-09-15] MEDS: GABAPENTIN 300 MG CAP PO SCH (21:08)
[2016-09-15] MEDS: HEPARIN SOD 5000 UNIT/0.5 ML CARP SQ SCH (21:16)
[2016-09-15] MEDS: INSULIN GLARGINE SOLOSTAR 100 UNITS/ML 3 ML PEN SC SCH (21:16)
[2016-09-15] MEDS: PANTOprazole SOD 40 MG TAB PO SCH (22:24)
[2016-09-16] VITALS (7 sets, daily range): BP systolic 105–123; BP diastolic 70–76; PULSE 54–74; TEMP 36.4–37; O2SAT 94–98
[2016-09-16] MEDS: LEVOTHYROXINE 50 MCG TAB PO SCH (05:52)
[2016-09-16] MEDS: HYDROmorphone INJ 0.5 MG/0.5 ML SYR IV PRN (05:53)
[2016-09-16 06:28] LABS: HEMATOCRIT 38.2 % (42-52); MEAN CELL VOLUME 89.9 fL (80-100); MEAN CORPUSCULAR HEMOGLOBIN 31.1 pg (25-34); MEAN CORPUSCULAR HGB CONC 34.6 g/dl (32-36); RED BLOOD COUNT 4.25 M/uL (4.7-6.1); WHITE BLOOD COUNT 7.11 K/uL (4.8-10.8)
[2016-09-16 06:31] LABS: BASO % 0.4 %; BASO ABS # 0.03 K/uL (0-0.2); COMPLETE YES; EOS % 5.5 %; IG% 0.4 %; LYMPH ABS # 1.78 K/uL (1.2-3.4); MEAN PLATELET VOLUME 8.9 fL (7.4-10.4); MONO % 10.3 %; NEUT % 58.4 %; PLATELET COUNT 87 K/uL (130-400)
[2016-09-16 07:02] LABS: BUN/CREATININE RATIO 17.2 (10-20); CALCIUM 10.5 mg/dl (8.5-10.1); CREATININE 1.5 mg/dl (0.60-1.40); POTASSIUM 4.5 mmol/L (3.5-5.1)
[2016-09-16 07:05] LABS: MAGNESIUM 1.8 mg/dl (1.8-2.4)
[2016-09-16] MEDS: BUDESONIDE 0.5 MG/2 ML VIAL (PULMICORT) INH SCH (07:22)
[2016-09-16] MEDS: FORMOTEROL FUMA NEBULIZER SOLN 20 MCG/2 ML VIAL INH SCH (07:22)
[2016-09-16] MEDS: THIAMINE HCL 100 MG TAB PO SCH (07:41)
[2016-09-16] MEDS: LIDODERM (LIDOCAINE) PATCH 5% TD SCH (07:41)
[2016-09-16] MEDS: PAROXETINE 20 MG TAB PO SCH (07:41)
[2016-09-16] MEDS: MAGNESIUM OXIDE 400 MG TAB PO SCH (07:42)
[2016-09-16] MEDS: CARVEDILOL 3.125 MG TAB PO SCH (07:42)
[2016-09-16] MEDS: ATORVASTATIN 40 MG TAB PO SCH (07:43)
[2016-09-16] MEDS: CYANOCOBALAMIN 1000 MCG/ML VIAL IM SCH (07:43)
[2016-09-16] MEDS: DICLOFENAC SOD 1% GEL 100 GM TUBE EXT SCH ×2 (07:43→12:40)
[2016-09-16] MEDS: ALLOPURINOL 300 MG TAB PO SCH (07:43)
[2016-09-16] MEDS: ASPIRIN 81 MG ECTAB PO SCH (07:43)
[2016-09-16] MEDS: LACTULOSE SYRUP 30 GM/45 ML UDP PO SCH ×2 (07:43→07:48)
[2016-09-16] MEDS: INSULIN ASPART 100 UNITS/ML 3 ML PEN SC SCH ×2 (08:34→12:39)
[2016-09-16] MEDS: HEPARIN SOD 5000 UNIT/0.5 ML CARP SQ SCH (08:35)
[2016-09-16] MEDS ORDERED: CEPHALEXIN MONOHYDRATE 500 MG CAP PO ONE (10:44)
--- NOTE | 2016-09-16 12:26 | PROGRESS NOTE ---
DATE: 09/16/2016 FOLLOWUP VISIT SUBJECTIVE: The patient is a 76-year-old male who has had multiple mechanical falls, which is mostly multifactorial including pain medications for a recent compression fracture to T12 and hepatic encephalopathy. The patient had an uneventful night. I believe the plan is for him to be transferred to a rehabilitation center when a bed is available. I reviewed his telemetry over the past 24 hours and he has had no significant arrhythmias. He has no complaints today. OBJECTIVE: VITAL SIGNS: Blood pressure is 118/70. The patient is not orthostatic. Pulse is regular at 70 beats per minute. He is afebrile. HEENT: He is normocephalic. Pupils are equal and reactive to light. Extraocular muscles are intact bilaterally. NECK: The neck veins are flat. Carotids have good upstrokes bilaterally without bruits. Thyroid is nonpalpable. RESPIRATORY: Breath sounds equal bilaterally and clear to auscultation. CARDIOVASCULAR: Heart has a regular rhythm. Normal S1 and S2. No S3 or S4. No cardiac rubs or murmurs. GASTROINTESTINAL: Abdomen is soft and nontender without organomegaly. EXTREMITIES: Free of edema, digit clubbing, or cyanosis. NEUROLOGIC: Grossly intact. SKIN: Warm to touch. LYMPH NODES: Negative to palpation. IMPRESSION: 1. Multiple mechanical falls. 2. Previous cerebrovascular accident with residual right-sided weakness. 3. Cirrhosis with hepatic encephalopathy. 4. Diabetes mellitus. RECOMMENDATIONS: As outlined previously, I do not believe any more inpatient cardiac workup is indicated. He can be transferred to a rehab center. CardioNet work event monitor for 1 or 2 weeks can be ordered as an outpatient after he leaves telemetry.
[2016-09-16] MEDS ORDERED: ASPEC81 PO (13:11)
[2016-09-16] MEDS ORDERED: CRG3125 PO (13:11)
[2016-09-16] MEDS ORDERED: CYNI1000 IM (13:11)
[2016-09-16] MEDS ORDERED: VLTG EXT (13:11)
[2016-09-16] MEDS ORDERED: KFL500 PO ×2 (13:11→13:38)
[2016-09-16] MEDS ORDERED: THM100 PO (13:11)
[2016-09-16] MEDS ORDERED: LDDP5 TD (13:11)
[2016-09-16] MEDS ORDERED: NVLGIPEN SC (13:11)
[2016-09-16] MEDS ORDERED: ULT50X PO ×2 (13:24→13:27)
--- NOTE | 2016-09-16 13:38 | Discharge Instructions ---
Discharge Instructions Date of Service Sep 16, 2016. Admission Reason for Admission: Hepatic Encephalopathy Discharge Discharge Diagnosis / Problem: Hepatic Encephalopathy with Fall Discharge Goals Goal(s): Decrease discomfort, Improve function, Increase independence Activity Recommendations Activity Level: Assistance Required Therapies: Physical Therapy, Occupational Therapy . Additional Information Patient informed of condition: Yes Advance Directives: Yes DNR: No Level of Care: Acute Rehab Communicable Disease: No Prognosis: Improving Briggs Catheter: No Instructions / Follow-Up Instructions / Follow-Up This patient is a 76-year-old male here a past medical history of cirrhosis ( related to hemachromatosis and possibly past H/O alcohol), hypertension, diabetes mellitus type 2, history of CVA/TIAs/T12 compression fracture, who presents with with multiple episodes of near syncope and with a fall. He has chronic paresthesias likely secondary to a B12 deficiency and polyneuropathy. With sinus bradycardia which apparently has been worked up as an outpatient in the last 2 months with his guide. Orthostatics are negative. TSH is normal. This may be related to his hyperammonemia, hydrocodone use for his compression fracture, and residual weakness from his CVA as well as neuropathy from B12 deficiency and/or diabetic neuropathy. Near Syncope and Frequent Falls: TIA not likely, acute CVA ruled out vs Arrhythmia vs Hepatic Encephalopathy - Suspect bradycardia and hepatic encephalopathy from hyperammonemia and possible sedation/dizziness from opioid medications - MRI brain negative for acute CVA -- MRA Head and Carotid U/S (Dec) - no significant abnormality or hemodynamically significant stenosis - Echo (Dec) - EF 65-70% with class I diastolic dysfunction but evidence of a mild aortic stenosis - Continue ASA 81 mg daily, atorvastatin 40 mg daily - Cardiology recommending event monitor for 1-2 weeks to monitor for arrhythmias but he is not wanting this at this time - can follow-up with guide after rehab. Hepatic Encephalopathy with Hyperammonemia, secondary to his cirrhosis: Ammonia level went from 59-->110, now down to 64 with taking lactulose. EEG performed this admission shows mild encephalopathy that is nonspecific. Son reports that patient was not taking his lactulose at home - did not want to take this AM as he will be transferred - Encouraged him to take Lactulose 30 g BID - titrate for 2-3 BMs/daily - Dr. 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 - monitor Subacute T12 compression Fx: - Lidoderm patch and Tramadol (would recommend limited use if possible to prevent altered mental status) - never used before so monitor for adverse effects and sedation - Avoid NSAIDs and Tylenol due to CKD and liver issues - Consideration for orthopedic spine consultation as an outpatient if pain not improving in the next 1-2 weeks Thrombocytopenia: Platelets are around his baseline at 80-90 K, likely secondary to his known Cirrhosis- no evidence of bleeding B12 Deficiency (Low Norm): B12 level 259 - B12 1000 mcg IM weekly 4 weeks then once monthly - Complaints of diplopia - B1 replacement Dysuria: U/A negative - urine culture with greater than 100 K coag-negative staph - Keflex 500 mg BID x 10 days total - Today is DAY #1 - if symptoms not improving, may need longer course in setting of BPH T2DM: Glucose levels are stable, hemoglobin A1c excellent at 6.1% - Continue Toujeo 20 units and sliding scale coverage HTN: Well-controlled - Continue Coreg 3.125 mg BID COPD without Exacerbation: Stable, no issues - Pulmicort 1 mg BID and formoterol 40 mcg BID Hypothyroidism: TSH here is normal -Continue Synthroid 50 mcg daily Code Status: FULL RESUSCITATION - NO PROLONGED INTUBATED/VENTILATION Current Hospital Diet Patient's current hospital diet: Diabetes Type 2 Diet Discharge Diet Recommended Diet: Low Sodium Diet (2gm Na) Pending Studies Studies pending at discharge: no Physician Orders On Transfer POLST Discussion: Not Applicable Laboratory Results Hemoglobin A1c Test 09/14/16 14:25 Range/Units Estimated Average Glucose 128 mg/dl Hemoglobin A1c 6.1 H 4.5-5.6 % Lipid Panel Test 09/15/16 05:01 Range/Units Triglycerides Level 84 0-150 mg/dl Cholesterol Level 86 0-200 mg/dl HDL Cholesterol 40 mg/dl Cholesterol/HDL Ratio 2.2 LDL Cholesterol, Calculated 29 mg/dl Medical Emergencies . Who to Call and When: Medical Emergencies: If at any time you feel your situation is an emergency, please call 911 immediately. . Non-Emergent Contact Non-Emergency issues call your: Primary Care Provider Call Non-Emergent contact if: you have a fever, your pain is concerning you, you have any medication questions . . "Provider Documentation" section prepared by Tara Foreman. . Core Measure Problem Core Measures: None
--- NOTE | 2016-09-16 16:11 | Discharge Summary ---
Discharge Summary Date of Service Sep 16, 2016. (Tara Foreman PA-C) Discharge Summary Admission Date: Sep 13, 2016 at 11:35 Discharge Date: Sep 16, 2016 Discharge Disposition: Rehab Principal Diagnosis: Hepatic Encephalopathy and UTI Problems/Secondary Diagnoses: 1. 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 HTN 3. T2DM 4. CVA/TIAs 5. T12 Compression Fracture 6. Frequent Falls 7. Syncope Procedures: 1. THORACIC SPINE CT FINDINGS: No change in the mild superior endplate compression fracture at T12. No associated retropulsion. No additional fractures identified within the thoracic spine. Mild degenerative disc disease seen throughout the thoracic spine. No significant central canal narrowing by CT technique. Paraspinal soft tissues are unremarkable. IMPRESSION: No change in the mild superior endplate compression fracture at T12. No additional fractures identified within the thoracic spine. 2. CT SCAN OF THE BRAIN WITHOUT IV CONTRAST FINDINGS: Brain parenchyma: There are age-related involutional changes noting mild subcortical and periventricular microangiopathic change. There is no hemorrhage, mass effect, or evidence of acute territorial ischemia by CT criteria. Mineralization is noted in the basal ganglia. Schultz-white matter is preserved. No extra-axial fluid collection is seen. Ventricles, sulci, cisterns: Prominent secondary to involutional change. Intracranial vasculature: There is atherosclerotic calcification of the cavernous carotid and vertebral arteries. Calvarium: The skeletal structures are osteopenic. There is no depressed calvarial fracture. Sinuses and mastoids: Trace mucosal thickening is seen within the maxillary antra. The remaining visualized paranasal sinuses are clear. The mastoid air cells are well pneumatized. Orbits: The bony orbits are grossly intact. There are bilateral ocular lens implants. IMPRESSION: There is no hemorrhage, mass effect, or evidence of acute territorial ischemia by CT criteria. 3. MRI OF THE BRAIN WITHOUT IV CONTRAST FINDINGS: Brain parenchyma: There are age-related involutional changes noting mild to moderate patchy subcortical and periventricular microangiopathic disease. Tiny chronic lacunar infarcts are identified in the right juan and the right cerebral peduncle. There is no hemorrhage or mass effect. There is no restricted diffusion to suggest acute ischemia. Schultz-white matter differentiation is preserved. No extra-axial fluid collection is seen. The cerebellar tonsils are normal in configuration. Ventricles, sulci, and cisterns: Prominent secondary to involutional change. Pituitary and sella: Unremarkable. Intracranial vasculature: Normal flow voids are maintained at the skull base. Orbits: The bony orbits are grossly intact. Orbital contents are normal in appearance noting bilateral ocular lens implants. Sinuses and mastoids: There is mild mucosal thickening within the maxillary antra and the ethmoid sinuses. The remaining paranasal sinuses are clear. There are small mastoid effusions. Calvarium: Unremarkable. Cervical cord: Partially visualized cervical spinal cord is normal in morphology and signal intensity. IMPRESSION: Senescent changes as above with no acute intracranial abnormality. 4. LEFT LOWER EXTREMITY VENOUS DOPPLER FINDINGS: There is normal compressibility, flow, and augmentation within the left lower extremity deep venous system. IMPRESSION: No DVT within the left lower extremity. Consultations: 1. Neurology 2. Cardiology 3. PT/OT (Tara Foreman, CHUNG) Procedures: EEG: Description This is a 21 electrode EEG with a single channel dedicated to limited EKG. The electrodes were placed in accordance with the International 10-20 system. At the start of the recording the patient was in an awake altered mental status state. Background was well organized and composed of symmetric mixed theta/ alpha and beta frequencies. There was a symmetric well-formed low amplitude 7-8 Hz posterior dominant rhythm that was reactive to eye opening and closure. Hyperventilation was not done. Intermittent photic stimulation at various frequencies produced no abnormalities. Drowsiness was indicated by loss of muscle artifact and slowing of the background rhythm. There was no sleep transients. Interpretation This is an abnormal routine EEG secondary to mild background slowing. There was no electrographic seizures or epileptiform discharges. Clinical Correlation This EEG indicates a mild encephalopathy of nonspecific etiology (Janine Flores MD) Medication Reconciliation New Medications: Tramadol HCl (Tramadol HCl) 50 Mg Tab 50 MG PO Q12H for 3 Days Aspirin (Aspirin EC Low Dose) 81 Mg Ectab 81 MG PO QAM for 14 Days Carvedilol (Carvedilol) 3.125 Mg Tab 3.125 MG PO BID for 14 Days, #28 TAB Cephalexin Monohydrate (Cephalexin) 500 Mg Cap 500 MG PO BID, #19 CAP Take one dose tonight then resume twice a day on 09/17 Cyanocobalamin (Cyanocobalamin) 1,000 Mcg/Ml Inj 1000 MCG IM WK for 30 Days once weekly x 4 weeks the once a month until follow-up Diclofenac Sod (Voltaren) 100 Appln/100 Gm Gel 1 APPLN EXT QID for 30 Days Insulin Aspart (Novolog Flexpen) 100 Units/Ml Inj 0 UNITS SC ACHS for 14 Days Lidocaine (Lidocaine) 1 Patch Tdsy 2 PATCH TD QAM for 14 Days Thiamine HCl (Vitamin B-1) 100 Mg Tab 200 MG PO BID for 14 Days, #56 TAB Continued Medications: Allopurinol (Allopurinol) 300 Mg Tab 300 MG PO QAM 0800 Atorvastatin (Lipitor) 40 Mg Tab 40 MG PO QAM, TAB Budesonide (Pulmicort Respules 0.5MG/2ML) 0.5 Mg/2 Ml Nebu 2 ML INH BID, EA Formoterol Fumarate (Perforomist) 20 Mcg/2 Ml Neb 2 ML INH BID Gabapentin (Neurontin) 300 Mg Cap 300 MG PO QPM, CAP Insulin Glargine (Toujeo Solostar) 300 Unit/Ml Inj 20 UNITS INJ HS Lactulose (Encephalopathy) (Lactulose) 10 Gm/15 Ml Jessica 30 ML PO BID Levothyroxine Sodium (Synthroid) 50 Mcg Tab 50 MCG PO QAM 0600 Magnesium Oxide (Mag-Ox) 400 Mg Tab 400 MG PO QAM, TAB Meclizine Hcl (Meclizine Hcl) 25 Mg Tab 1 TAB PO Q6H PRN for Dizziness or Vertigo for 10 Days, #40 TAB Nitroglycerin (Nitrostat) 0.4 Mg Tab 0.4 MG UT PRN for chest pain, BTL Pantoprazole Sodium (Protonix) 40 Mg Tab 40 MG PO QPM Paroxetine (Paroxetine HCl) 10 Mg Tab 10 MG PO QAM Tamsulosin Hcl (Flomax) 0.4 Mg Cap 0.4 MG PO QPM, CAP Discontinued Medications: Carvedilol (Carvedilol) 12.5 Mg Tab 12.5 MG PO QAM Finasteride (Proscar) 5 Mg Tab 5 MG PO QPM, TAB Hydrocodone/Acetaminophen 7.5MG/325MG ([place] 7.5MG/325MG) Tab 1 TAB PO Q6H PRN for Pain, TAB PRN PAIN Naproxen (Aleve) 220 Mg Tab 220 MG PO DAILY, TAB Discharge Exam REVIEW OF SYSTEMS: General/Constitutional: Denies fever/chills, fatigue, generalized weakness ENT: Denies visual changes, nasal drainage, hearing loss, sore throat, trouble swallowing Cardiovascular: Denies chest pain, palpitations, edema Respiratory: Denies cough, sputum, SOB, wheezing, orthopnea GI: +nausea, +dyspepsia, +abdominal cramping; Denies vomiting, constipation, melena/hematochezia : +dysuria, +frequency; Denies hematuria Musculoskeletal: Denies joint/muscle aches, weakness, swelling Neurologic: +residual R sided weakness (baseline); Denies dizziness/ lightheadedness, numbness/tingling Psychiatric: Deferred Endocrine: Deferred Hematologic/Lymphatic: Denies bleeding/clotting abnormalities Skin: Denies rash, itch, new skin changes, easy bruising Allergy/Immunologic: Deferred PHYSICAL EXAM:: General Appearance: WDWN in NAD who is A&O x 3 HEENT: Head is normocephalic/atraumatic; EOMI; PERRLA; Hearing grossly intact; Mucous membranes moist; Pharynx negative for exudate/lesions Neck: Supple; Trachea midline; Neg JVD; Neg lymphadenopathy Heart: RRR with systolic murmur and no G/R Lungs: CTA in all lung koch bilaterally; Respirations unlabored; Neg accessory muscle use Abdomen: Soft, non-tender, non-distended; Positive BS x 4 quadrants; Neg organomegaly Extremities: Capillary refill < 2 seconds; Neg cyanosis Neurological: Speech clear; Gross motor/sensory function intact; Neg focal neurologic deficits Psychiatric: Appropriate mood/affect Skin: Normal Color; Warm/Dry; Neg rashes, ecchymosis, lacerations/ulcerations (Tara Foreman, P[place]gin[place]) Hospital Course ADMISSION: 76yo male with h/o HTN, COPD, gout, liver disease, and prior TIA presents after having had a fall about 0500 this am. He was walking with his walker and as he got into his kitchen he fell onto the ground. He is not sure if he had syncope or loss of consciousness. When he hit the ground he fell onto his back and hit his head. Over the last month or so he has had at least 3-4 episodes of falls. He denies any preceding chest pain, sob, palpitations, or dyspnea with exertion. Before the event he felt a little lightheaded. He checked his HR and BP this am (before the event) and his pulse was 51 and his BP , to his recollection, was 117/90. Glucose was 91. He is pretty sure that with the other episodes in the last month he has felt lightheaded. He also mentions that when he gets out of bed he feels a little lightheaded as well. After he got up from the floor this am he noted right arm/leg numbness. This is now better except for some remaining right hand numbness. HOSPITAL COURSE: Mr. Bonner was admitted for a syncopal episode/lightheadedness with fall which have been happening frequently. TIA is unlikely and CVA was ruled out. Suspicion for acute on chronic hepatic encephalopathy secondary to hyperammonemia versus bradycardia versus metabolic encephalopathy due to urinary tract infection/narcotics. Patient has been noncompliant as an outpatient with his lactulose and family members report mental status changes. Patient has been undergoing outpatient workup for arrhythmias per cardiology. Only significant finding while hospitalized was bradycardia. Urine culture significant for coag negative staph and he was started on Keflex 500 mg BID with treatment duration of 10 days given history of BPH. Orthostatics negative. Patient with a history of T12 compression fracture prior to admission and was taking narcotics. Question of oversedation due to these medications. He received morphine in the hospital which caused oversedation as well. In regards to compression fracture, he was discharged with Lidoderm patches and controlled use of tramadol. Laboratories also significant for a low normal B12. Given the history of diabetes and this low normal B12 his numbness and tingling may be related to neuropathy. He was initiated on B12 injections 1000 mcg daily 3 days and will continue weekly 4 weeks then monthly. Patient is optimal for discharge to [facility]. Total Time Spent: Greater than 30 minutes This includes examination of the patient, discharge planning, medication reconciliation, and communication with other providers. (Tara Foreman PA-C) Discharge Instructions Please refer to the electronic Patient Visit Report (Discharge Instructions) for additional information. (Tara Foreman PA-C) Additional Copies To Domo Alanis D.O. Reviewed: Pt Seen/Exam by Me (Janine Flores MD) History Physician Body Design Checker Supervision Note: I interviewed and examined the patient. Discussed with RANJITH Foreman and agree with findings and plan as documented in the note. Any exceptions or clarifications are listed here: Pt feeling great. No problems. He has had some lightheadedness here and no significant events on tele. VSS, tele reviewed RRR no mgr CTAB breathing unlabored Abd soft NT ND +BS Ext no edema This patient is a 76-year-old male here a past medical history of cirrhosis ( related to hemochromatosis and possibly alcohol), hypertension, diabetes mellitus type 2, history of CVA/TIAs/T12 compression fracture, who presents with with multiple episodes of near syncope and with a fall. He has chronic paresthesias likely secondary to a B12 deficiency and polyneuropathy. With sinus bradycardia Which apparently has been worked up as an outpatient in the last 2 months with his business intern. Orthostatics are negative. TSH is normal. This may be related to his hyperammonemia, hydrocodone use for his compression fracture, and residual weakness from his CVA as well as neuropathy from B12 deficiency and/or diabetic neuropathy. Near Syncope and Frequent Falls: TIA not likely, acute CVA ruled out vs Arrhythmia vs Hepatic Encephalopathy -MRI brain negative for acute CVA -- MRA Head and Carotid U/S (Apr) - no significant abnormality or hemodynamically significant stenosis - Continue ASA 81 mg daily, atorvastatin 40 mg daily - Continue monitoring on telemetry for arrhythmia -- Echo (Apr) - EF 65-70% with class I diastolic dysfunction but evidence of a mild aortic stenosis -Consult cardiology will need long-term monitoring as an outpatient-we will try to arrange CardioNet for at [facility] upon discharge--> pt declines this and was not ordered For hyperammonemia, this may be contributing to his altered mental status- despite the high level today over 100, he seems mentally clear-encouraged him to take his lactulose -Would benefit from acute rehabilitation upon discharge -Begin intramuscular replacement vitamin B12 -Appreciate neurology recommendations -Medication list and bottles were brought in by the son today and changes were made to the medication list Hepatic Encephalopathy with Hyperammonemia, secondary to his cirrhosis: Ammonia level went from 59-->110, now down to 64 with taking lactulose. EEG performed this admission shows mild encephalopathy that is nonspecific. Son reports that patient was not taking his lactulose at home -Encouraged him to take Lactulose 30 g BID - titrate for 2-3 BMs/daily - Monitor ammonia level - consideration for rifaximin? - Follows with Dr. 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 -Continue to monitor with CBC B12 Deficiency (Low Norm): B12 level 259 - B12 1000 mcg IM daily 3 days then weekly 4 weeks then monthly - Complaints of diplopia - awaiting B1 to evaluate for deficiency - thiamine level is pending at time of discharge Dysuria: U/A negative -urine culture with greater than 100 K coag-negative staph , and he did c/o dysuria so will treat with keflex x 10 days T2DM: Glucose levels are stable, hemoglobin A1c excellent at 6.1% - Continue Lantus 20 units SC daily and SSI with carb coverage HTN: Well-controlled -Continue Coreg 3.125 mg BID COPD without Exacerbation: Stable, no issues - Pulmicort 1 mg BID and formoterol 40 mcg BID Hypothyroidism: TSH here is normal -Continue Synthroid 50 mcg daily DVT Prophylaxis: AGATA/SCDs -SQ heparin Code Status: FULL RESUSCITATION - NO PROLONGED INTUBATED/VENTILATION Disposition: PT/OT Evaluations - dc to [facility] - lives alone with frequent falls Documented By: Janine Flores (Janine Flores MD) Assessment/Plan This patient is a 76-year-old male here a past medical history of cirrhosis ( related to hemachromatosis and possibly alcohol), hypertension, diabetes mellitus type 2, history of CVA/TIAs/T12 compression fracture, who presents with with multiple episodes of near syncope and with a fall. He has chronic paresthesias likely secondary to a B12 deficiency and polyneuropathy. With sinus bradycardia Which apparently has been worked up as an outpatient in the last 2 months with his business intern. Orthostatics are negative. TSH is normal. This may be related to his hyperammonemia, hydrocodone use for his compression fracture, and residual weakness from his CVA as well as neuropathy from B12 deficiency and/or diabetic neuropathy. Near Syncope and Frequent Falls: TIA not likely, acute CVA ruled out vs Arrhythmia vs Hepatic Encephalopathy -MRI brain negative for acute CVA -- MRA Head and Carotid U/S (Apr) - no significant abnormality or hemodynamically significant stenosis - Continue ASA 81 mg daily, atorvastatin 40 mg daily - Continue monitoring on telemetry for arrhythmia -- Echo (Apr) - EF 65-70% with class I diastolic dysfunction but evidence of a mild aortic stenosis -Consult cardiology will need long-term monitoring as an outpatient-we will try to arrange CardioNet for at [facility] upon discharge For hyperammonemia, this may be contributing to his altered mental status- despite the high level today over 100, he seems mentally clear-encouraged him to take his lactulose -Would benefit from acute rehabilitation upon discharge -Begin intramuscular replacement vitamin B12 -Appreciate neurology recommendations -Medication list and bottles were brought in by the son today and changes were made to the medication list Hepatic Encephalopathy with Hyperammonemia, secondary to his cirrhosis: Ammonia level went from 59-->110, now down to 64 with taking lactulose. EEG performed this admission shows mild encephalopathy that is nonspecific. Son reports that patient was not taking his lactulose at home -Encouraged him to take Lactulose 30 g BID - titrate for 2-3 BMs/daily - Monitor ammonia level - consideration for rifaximin? - Follows with Dr. 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 -Continue to monitor with CBC B12 Deficiency (Low Norm): B12 level 259 - B12 1000 mcg IM daily 3 days then weekly 4 weeks then monthly - Complaints of diplopia - awaiting B1 to evaluate for deficiency - thiamine level is pending Dysuria: U/A negative -urine culture with greater than 100 K coag-negative staph , however this is asymptomatic bacteriuria and I will not treated with antibiotics T2DM: Glucose levels are stable, hemoglobin A1c excellent at 6.1% - Continue Lantus 20 units SC daily and SSI with carb coverage HTN: Well-controlled -Continue Coreg 3.125 mg BID COPD without Exacerbation: Stable, no issues - Pulmicort 1 mg BID and formoterol 40 mcg BID Hypothyroidism: TSH here is normal -Continue Synthroid 50 mcg daily DVT Prophylaxis: AGATA/SCDs -it is safe to add heparin subcutaneous Code Status: FULL RESUSCITATION - NO PROLONGED INTUBATED/VENTILATION Disposition: PT/OT Evaluations - patient considering [facility] - lives alone with frequent falls -Can be discharged likely tomorrow (Janine Flores MD)
[2016-09-16] MEDS ORDERED: CEPHALEXIN MONOHYDRATE 500 MG CAP PO SCH (21:00)
[2016-12-26] MEDS ORDERED: VITAMIN B12 INJ (09:31)
[2016-12-26] MEDS ORDERED: LACT10SO17 PO (09:31)
[2017-01-09] MEDS ORDERED: CIPR-255 PO (09:54)
[2017-01-09] MEDS ORDERED: HYDR-3419 PO (09:54)
[2017-01-09] MEDS ORDERED: PHEN-775 PO (09:54)
[2017-04-06] MEDS ORDERED: CARV3.12 PO (09:31)
[2017-04-06] MEDS ORDERED: ASPI81TA28 PO (09:31)
[2017-04-06] MEDS ORDERED: THIA100T46 PO (09:35)
[2017-04-06] MEDS ORDERED: CALC625T13 PO (09:36)
[2017-04-06] MEDS ORDERED: CHOL1CAP57 PO (09:37)
[2017-04-06] MEDS ORDERED: MAGN400T6 PO (13:06)
[2017-04-06] MEDS ORDERED: LEVO50TA PO (13:30)
[2017-04-06] MEDS ORDERED: ALL300 PO (13:30)
[2017-04-06] MEDS ORDERED: GABA-113 PO (14:44)
[2017-04-06] MEDS ORDERED: NTRGSL/4 UT (14:47)
== END 2016-09-16 16:44 | DRG 441 ==
LOC: ENRESERVTM → ENRESERVDT → C.EDB 08:27 → C.MED 11:35
PROVIDERS: ADMIT Internal Medicine; ATTEND Family Medicine
DX: K72.90 Hepatic failure, unspecified without coma (principal); G93.41 Metabolic encephalopathy; E72.20 Disorder of urea cycle metabolism, unspecified; N39.0 Urinary tract infection, site not specified; I69.351 Hemiplegia and hemiparesis following cerebral infarction affecting right dominant side; S22.089A Unspecified fracture of T11-T12 vertebra, initial encounter for closed fracture; Z96.651 Presence of right artificial knee joint; M10.9 Gout, unspecified; J44.9 Chronic obstructive pulmonary disease, unspecified; E03.9 Hypothyroidism, unspecified; N40.0 Benign prostatic hyperplasia without lower urinary tract symptoms; Z90.49 Acquired absence of other specified parts of digestive tract; Z98.41 Cataract extraction status, right eye; Z98.42 Cataract extraction status, left eye; Z80.9 Family history of malignant neoplasm, unspecified; Z82.49 Family history of ischemic heart disease and other diseases of the circulatory system; Z84.1 Family history of disorders of kidney and ureter; Z82.3 Family history of stroke; Z87.891 Personal history of nicotine dependence; Z88.8 Allergy status to other drugs, medicaments and biological substances; Z88.5 Allergy status to narcotic agent; Z91.041 Radiographic dye allergy status; Z79.899 Other long term (current) drug therapy; K74.60 Unspecified cirrhosis of liver; G47.00 Insomnia, unspecified; R30.0 Dysuria; I35.0 Nonrheumatic aortic (valve) stenosis; E53.8 Deficiency of other specified B group vitamins; D69.6 Thrombocytopenia, unspecified; E11.22 Type 2 diabetes mellitus with diabetic chronic kidney disease; I12.9 Hypertensive chronic kidney disease with stage 1 through stage 4 chronic kidney disease, or unspecified chronic kidney disease; N18.9 Chronic kidney disease, unspecified; Z79.4 Long term (current) use of insulin; R55 Syncope and collapse; M51.34 Other intervertebral disc degeneration, thoracic region; Z91.14 Patient's other noncompliance with medication regimen; E11.40 Type 2 diabetes mellitus with diabetic neuropathy, unspecified; E66.9 Obesity, unspecified; Z68.36 Body mass index [BMI] 36.0-36.9, adult; I25.10 Atherosclerotic heart disease of native coronary artery without angina pectoris; V84.5XXA Driver of special agricultural vehicle injured in nontraffic accident, initial encounter; W01.198A Fall on same level from slipping, tripping and stumbling with subsequent striking against other object, initial encounter; Z91.81 History of falling; Y93.01 Activity, walking, marching and hiking; Y92.000 Kitchen of unspecified non-institutional (private) residence as the place of occurrence of the external cause

== ENCOUNTER 2016-11-02 15:31 | Observation (INO) | payer OTHER, MEDICARE ==
[~2016-11-02] VITALS: Ht 170.2 cm; Wt 107.2 kg
[~2016-11-02 15:31] MED LIST changes: +ASPEC81 PO; -CRG125 PO; +CRG3125 PO; +CYNI1000 IM; -FINA5TAB PO; +KFL500 PO; +LDDP5 TD; +NVLGIPEN SC; +THM100 PO; +ULT50X PO; +VLTG EXT
[2016-11-02 17:35] LABS: HEMATOCRIT 37.1 % (42-52); MEAN CELL VOLUME 92.8 fL (80-100); MEAN CORPUSCULAR HEMOGLOBIN 32.3 pg (25-34); MEAN CORPUSCULAR HGB CONC 34.8 g/dl (32-36); WHITE BLOOD COUNT 6.52 K/uL (4.8-10.8)
--- NOTE | 2016-11-02 17:43 | DIAGNOSTIC IMAGING REPORT ---
CHEST ONE VIEW PORTABLE CLINICAL HISTORY: Generalized Weakness pain COMPARISON STUDY: 09/13/2016 FINDINGS: The bones soft tissues and hemidiaphragms are normal. The cardiomediastinal silhouette is normal. The lungs are clear. The pulmonary vasculature is normal. IMPRESSION: Negative chest. Electronically signed by: Yayo Reyes M.D. 11/02/2016 5:42 PM Dictated Date/Time: 11/02/2016 5:42 PM
[2016-11-02 17:51] LABS: PARTIAL THROMBOPLASTIN RATIO 1.1; PROTHROMBIN TIME (PATIENT) 11.2 SECONDS (9.0-12.0)
[2016-11-02 18:04] LABS: ALT/SGPT 29 U/L (12-78); AST/SGOT 20 U/L (15-37); BLOOD UREA NITROGEN 26 mg/dl (7-18); BUN/CREATININE RATIO 19.8 (10-20); CALCIUM 10.1 mg/dl (8.5-10.1); CARBON DIOXIDE 25 mmol/L (21-32); CHLORIDE 114 mmol/L (98-107); GLUCOSE 92 mg/dl (70-99); POTASSIUM 4.4 mmol/L (3.5-5.1); SODIUM 146 mmol/L (136-145)
[2016-11-02 18:05] LABS: BASO % 0.8 %; BASO ABS # 0.05 K/uL (0-0.2); COMPLETE YES; EOS % 5.7 %; IG% 0.3 %; LYMPH % 26.2 %; LYMPH ABS # 1.71 K/uL (1.2-3.4); MEAN PLATELET VOLUME 9.4 fL (7.4-10.4); MONO % 9.5 %; NEUT % 57.5 %; PLATELET COUNT 94 K/uL (130-400)
[2016-11-02 18:07] LABS: ALKALINE PHOSPHATASE 77 U/L (45-117); CKMB/CK RATIO 2.7 (0-3.0); PHOSPHORUS 2.5 mg/dl (2.5-4.9)
--- NOTE | 2016-11-02 18:16 | DIAGNOSTIC IMAGING REPORT ---
HEAD CT NONCONTRAST CT DOSE: 2847.67 mGy.cm HISTORY: Mental status change Generalized Weakness TECHNIQUE: Multiaxial CT images of the head were performed without the use of intravenous contrast. Comparison: 09/13/2016 Findings: The paranasal sinuses and mastoid air cells are clear. The calvarium and skull base are intact. The ventricles and sulci are within normal limits. There is no mass, hematoma, midline shift, or acute infarct. Impression: No acute intracranial abnormality. Electronically signed by: Yayo Reyes M.D. 11/02/2016 6:15 PM Dictated Date/Time: 11/02/2016 6:14 PM
--- NOTE | 2016-11-02 18:21 | DIAGNOSTIC IMAGING REPORT ---
ABDOMEN AND PELVIS CT WITHOUT CONTRAST CT DOSE: HISTORY: Pain RUQ/Right flank pain TECHNIQUE: Multiaxial CT images of the abdomen and pelvis were performed without the use of intravenous and oral contrast according to the standard department stone protocol. COMPARISON STUDY: 06/27/2016 FINDINGS: Chronic basilar interstitial fibrotic change. Hepatic cirrhosis. Mild splenomegaly. Prior cholecystectomy. Kidneys negative for calcification or hydronephrosis. Bowel pattern is considered nonobstructive. Scattered colonic diverticuli. No evidence for acute diverticulitis. Prior partial sigmoid resection. Bladder is midline. Bowel pattern is nonobstructive. IMPRESSION: 1. Hepatic cirrhosis. 2. Prior cholecystectomy. 3. Scattered colonic diverticulosis with no evidence for acute diverticulitis. 4. Prior cholecystectomy and a partial sigmoid resection all unchanged from the prior study. 5. No acute process the abdomen or pelvis. Electronically signed by: Yayo Reyes M.D. 11/02/2016 6:20 PM Dictated Date/Time: 11/02/2016 6:15 PM
[2016-11-02] MEDS ORDERED: NVLG SQ (19:28)
--- NOTE | 2016-11-02 19:57 | EMERGENCY ROOM VISIT NOTE ---
History Report prepared by Mary: Cristin Madlonado Under the Supervision of: Dr. Mayito Ruiz M.D. First contact with patient: 17:20 Chief Complaint: DIZZY Stated Complaint: DIZZY- BALANCE Nursing Triage Summary: pt reports dizziness with Nausea and abdominal pain that radiates to R back X 1 week History of Present Illness The patient is a 76 year old male who presents to the Emergency Room with complaints of persistent dizziness for the past week. When he was trying to get out of bed, he felt lightheaded and fell back onto the bed. He also complains of right sided flank pain. He is able to walk around, but has been getting SOB when he walks. He has swelling in his legs. He is also having chest pain a couple times a day. He recently had a stress test and other cardiac tests which were normal. He has been getting headaches since he had a stroke 2 years ago. He denies any fever. He is on aspirin. He has a history of kidney stones. He has had a cholecystectomy. Source of History: patient, family Onset: 1 week Position: other (global) Quality: other (dizziness) Timing: other (persistent) Associated Symptoms: + headache, + chest pain, No fevers Note: Pt reports lightheadedness, right flank pain, SOB when walking, swelling in legs. Review of Systems See HPI for pertinent positives & negatives. A total of 10 systems reviewed and were otherwise negative. Past Medical & Surgical Medical Problems: (1) Asthma (2) Bradycardia (3) Calcaneal spur (4) Carpal tunnel syndrome (5) Clostridium difficile diarrhea (6) COPD (chronic obstructive pulmonary disease) (7) CVA (cerebral vascular accident) (8) Gout (9) Hepatic encephalopathy (10) Hypertension (11) Liver disease (12) Right ureteral calculus Family History Cancer FHx: hemochromatosis Heart disease Hypertension Social History Smoking Status: Never Smoker Alcohol Use: none Drug Use: none Marital Status: Housing Status: lives alone Occupation Status: retired Current/Historical Medications Scheduled Allopurinol (Allopurinol), 300 MG PO QAM Aspirin (Aspirin EC Low Dose), 81 MG PO QAM Atorvastatin (Lipitor), 40 MG PO QAM Budesonide (Pulmicort Respules 0.5MG/2ML), 2 ML INH BID Carvedilol (Carvedilol), 3.125 MG PO BID Cyanocobalamin (Cyanocobalamin), 1,000 MCG IM WK Formoterol Fumarate (Perforomist), 2 ML INH BID Gabapentin (Neurontin), 300 MG PO QPM Insulin Aspart (Novolog), 1 DOSE SQ SLIDING SCALE Insulin Glargine (Toujeo Solostar), 20 UNITS INJ HS Lactulose (Encephalopathy) (Lactulose), 30 ML PO BID Levothyroxine Sodium (Synthroid), 50 MCG PO QAM Magnesium Oxide (Mag-Ox), 400 MG PO QAM Nitroglycerin (Nitrostat), 0.4 MG UT PRN Pantoprazole Sodium (Protonix), 40 MG PO QPM Paroxetine (Paroxetine HCl), 10 MG PO QAM Tamsulosin Hcl (Flomax), 0.4 MG PO QPM Thiamine HCl (Vitamin B-1), 200 MG PO BID Tramadol HCl (Tramadol HCl), 50 MG PO Q12H Scheduled PRN Meclizine Hcl (Meclizine Hcl), 1 TAB PO Q6H PRN for Dizziness or Vertigo Allergies Coded Allergies: Oxycodone (Verified Allergy, Mild, SHORTNESS OF BREATH, 11/02/16) wheezing ??? Dobutamine (Verified Allergy, Unknown, abd pain, 11/02/16) Iodinated Diagnostic Agents (Verified Allergy, Unknown, HIVES, 11/02/16) Meperidine (Verified Allergy, Unknown, ANAPHYLAXIS, 11/02/16) Perflutren (Verified Allergy, Unknown, abd pain, 11/02/16) Propylene Glycol (Verified Allergy, Unknown, abd pain, 11/02/16) Physical Exam Vital Signs Date Time Temp Pulse Resp B/P (MAP) Pulse Ox O2 Delivery O2 Flow Rate FiO2 11/02/16 21:36 65 16 135/76 97 Room Air 11/02/16 21:23 67 11/02/16 19:30 59 16 150/86 99 Room Air 11/02/16 18:23 71 20 135/84 99 Room Air 11/02/16 17:23 63 11/02/16 17:13 61 16 139/80 98 Room Air 62 150/84 70 139/76 11/02/16 15:54 36.9 64 20 142/91 97 Room Air Physical Exam GENERAL: Patient is mildly forgetful and in no acute distress. HEENT: No acute trauma, normocephalic atraumatic, mucous membranes moist, no nasal congestion, no scleral icterus. NECK: No stridor, no adenopathy, no meningismus, trachea is midline. LUNGS: No dyspnea. Clear to auscultation and equal bilaterally. No wheeze, no rhonchi. HEART: Regular rate and rhythm. No murmurs, rubs, gallops appreciated. ABDOMEN: Soft, vague RUQ tenderness to palpation, bowel sounds positive, no masses appreciated, no peritonitis. BACK: No midline tenderness, no CVA tenderness EXTREMITIES: Normal motion all extremities, no cyanosis, no edema. NEUROLOGIC: Awake, alert and oriented, though mildly confused. SKIN: No rash, no jaundice, no diaphoresis. Medical Decision & Procedures ER Provider Diagnostic Interpretation: X ray results are stated below per my interpretation and the radiologist's interpretation. Radiology results and stated below per my review and radiologist interpretation: CHEST ONE VIEW PORTABLE CLINICAL HISTORY: Generalized Weakness pain COMPARISON STUDY: 09/13/2016 FINDINGS: The bones soft tissues and hemidiaphragms are normal. The cardiomediastinal silhouette is normal. The lungs are clear. The pulmonary vasculature is normal. IMPRESSION: Negative chest. Electronically signed by: Yayo Reyes M.D. 11/02/2016 5:42 PM Dictated Date/Time: 11/02/2016 5:[address] NONCONTRAST CT DOSE: 2847.67 mGy.cm HISTORY: Mental status change Generalized Weakness TECHNIQUE: Multiaxial CT images of the head were performed without the use of intravenous contrast. Comparison: 09/13/2016 Findings: The paranasal sinuses and mastoid air cells are clear. The calvarium and skull base are intact. The ventricles and sulci are within normal limits. There is no mass, hematoma, midline shift, or acute infarct. Impression: No acute intracranial abnormality. Electronically signed by: Yayo Reyes M.D. 11/02/2016 6:15 PM Dictated Date/Time: 11/02/2016 6:14 PM ABDOMEN AND PELVIS CT WITHOUT CONTRAST CT DOSE: HISTORY: Pain RUQ/Right flank pain TECHNIQUE: Multiaxial CT images of the abdomen and pelvis were performed without the use of intravenous and oral contrast according to the standard department stone protocol. COMPARISON STUDY: 06/27/2016 FINDINGS: Chronic basilar interstitial fibrotic change. Hepatic cirrhosis. Mild splenomegaly. Prior cholecystectomy. Kidneys negative for calcification or hydronephrosis. Bowel pattern is considered nonobstructive. Scattered colonic diverticuli. No evidence for acute diverticulitis. Prior partial sigmoid resection. Bladder is midline. Bowel pattern is nonobstructive. IMPRESSION: 1. Hepatic cirrhosis. 2. Prior cholecystectomy. 3. Scattered colonic diverticulosis with no evidence for acute diverticulitis. 4. Prior cholecystectomy and a partial sigmoid resection all unchanged from the prior study. 5. No acute process the abdomen or pelvis. Electronically signed by: Yayo Reyes M.D. 11/02/2016 6:20 PM Dictated Date/Time: 11/02/2016 6:15 PM Laboratory Results 11/02/16 17:25 Red Blood Count 4.00, Mean Corpuscular Volume 92.8, Mean Corpuscular Hemoglobin 32.3, Mean Corpuscular Hemoglobin Concent 34.8, Mean Platelet Volume 9.4, Neutrophils (%) (Auto) 57.5, Lymphocytes (%) (Auto) 26.2, Monocytes (%) (Auto) 9.5, Eosinophils (%) (Auto) 5.7, Basophils (%) (Auto) 0.8, Neutrophils # (Auto) 3.75, Lymphocytes # (Auto) 1.71, Monocytes # (Auto) 0.62, Eosinophils # (Auto) 0.37, Basophils # (Auto) 0.05 11/02/16 17:25 Test 11/02/16 17:25 11/02/16 17:43 11/02/16 20:15 White Blood Count 6.52 K/uL (4.8-10.8) Red Blood Count 4.00 M/uL (4.7-6.1) Hemoglobin 12.9 g/dL (14.0-18.0) Hematocrit 37.1 % (42-52) Mean Corpuscular Volume 92.8 fL (80-100) Mean Corpuscular Hemoglobin 32.3 pg (25-34) Mean Corpuscular Hemoglobin Concent 34.8 g/dl (32-36) Platelet Count 94 K/uL (130-400) Mean Platelet Volume 9.4 fL (7.4-10.4) Neutrophils (%) (Auto) 57.5 % Lymphocytes (%) (Auto) 26.2 % Monocytes (%) (Auto) 9.5 % Eosinophils (%) (Auto) 5.7 % Basophils (%) (Auto) 0.8 % Neutrophils # (Auto) 3.75 K/uL (1.4-6.5) Lymphocytes # (Auto) 1.71 K/uL (1.2-3.4) Monocytes # (Auto) 0.62 K/uL (0.11-0.59) Eosinophils # (Auto) 0.37 K/uL (0-0.5) Basophils # (Auto) 0.05 K/uL (0-0.2) RDW Standard Deviation 52.4 fL (36.4-46.3) RDW Coefficient of Variation 15.4 % (11.5-14.5) Immature Granulocyte % (Auto) 0.3 % Immature Granulocyte # (Auto) 0.02 K/uL (0.00-0.02) Prothrombin Time 11.2 SECONDS (9.0-12.0) Prothromb Time International Ratio 1.0 (0.9-1.1) Activated Partial Thromboplast Time 28.1 SECONDS (21.0-31.0) Partial Thromboplastin Ratio 1.1 Anion Gap 7.0 mmol/L (3-11) Est Creatinine Clear Calc Drug Dose 59.0 ml/min Estimated GFR () 61.9 Estimated GFR (Non- 53.4 BUN/Creatinine Ratio 19.8 (10-20) Calcium Level 10.1 mg/dl (8.5-10.1) Phosphorus Level 2.5 mg/dl (2.5-4.9) Magnesium Level 2.0 mg/dl (1.8-2.4) Total Bilirubin 1.1 mg/dl (0.2-1) Direct Bilirubin 0.3 mg/dl (0-0.2) Aspartate Amino Transf (AST/SGOT) 20 U/L (15-37) Alanine Aminotransferase (ALT/SGPT) 29 U/L (12-78) Alkaline Phosphatase 77 U/L (45-117) Total Creatine Kinase 56 U/L (39-308) Creatine Kinase MB 1.5 ng/ml (0.5-3.6) Creatine Kinase MB Ratio 2.7 (0-3.0) Troponin I < 0.015 ng/ml (0-0.045) Total Protein 7.1 gm/dl (6.4-8.2) Albumin 3.6 gm/dl (3.4-5.0) Lipase 120 U/L (73-393) Lyme Disease IgG Antibody NEG (NEG) Lyme Disease IgM Antibody NEG (NEG) Ammonia 125.0 umol/L (11-32) Urine Color YELLOW Urine Appearance CLEAR (CLEAR) Urine pH 6.5 (4.5-7.5) Urine Specific [place] 1.019 (1.000-1.030) Urine Protein NEG (NEG) Urine Glucose (UA) NEG (NEG) Urine Ketones NEG (NEG) Urine Occult Blood NEG (NEG) Urine Nitrite NEG (NEG) Urine Bilirubin NEG (NEG) Urine Urobilinogen NEG (NEG) Urine Leukocyte Esterase TRACE (NEG) Urine WBC (Auto) 1-5 /hpf (0-5) Urine RBC (Auto) 0-4 /hpf (0-4) Urine Hyaline Casts (Auto) 0 /lpf (0-5) Urine Epithelial Cells (Auto) 5-10 /lpf (0-5) Urine Bacteria (Auto) 2+ (NEG) Laboratory results as reviewed by me. ECG Indication: weakness Rate (beats per minute): 59 Rhythm: sinus bradycardia Findings: no acute ischemic change, no ectopy ED Course 172: The patient was evaluated in room A11B. A complete history and physical exam was performed. 1820: Upon reevaluation, the patient is resting comfortably. His family notes that the patient has been very confused for the past 3-4 days. The symptoms were very similar to his previous ammonia issues. I discussed results and treatment plan with the patient and his family. They verbalized understanding and agreement with the treatment plan. The patient will be evaluated for further management. 1942: I discussed the patient's case with Dr. Pandey, [facility] hospitalist service. The patient will be evaluated for further treatment and disposition. Medical Decision Differential: Sepsis, Infectious (UTI/Pneumonia/Meningitis/etc), Metabolic/ Electrolyte Abnormality, Cardiac, Hepatic, Endocrine, Toxicologic, Neurologic, amongst other pathologies entertained. Medication Reconciliation: I attest that I have personally reviewed the patient 's current medication list. Blood Pressure Screening: Patient was found to have a slightly elevated blood pressure due to circumstances. I do not believe that the patient requires hypertension monitoring. 76 yr old male arrives with many complaints, though clearly is a bit confused with primary pains being his abdomen. Labs consistent with hepatic encephalopathy with his ammonia double his baseline. He does not appear septic and is in no distress otherwise. CT head negative. CT abdo negative and he does not have surgical abdomen. Stable though with this he will need to come in for further work-up and evaluation, especially given he has already had his lactulose doubled as an outpatient. Consults Time Called: 1824 Consulting Physician: Dr. Pandey [facility] hospitalist service Returned Call: 1942 Discussed the patient's case. The patient will be evaluated for further treatment and disposition. Impression Primary Impression: Hepatic encephalopathy Additional Impressions: RUQ pain Confusion Chronic headache Scribe Attestation The scribe's documentation has been prepared under my direction and personally reviewed by me in its entirety. I confirm that the note above accurately reflects all work, treatment, procedures, and medical decision making performed by me. Departure Information Dispostion Being Evaluated By Hospitalist Referrals Domo Alanis D.O. (PCP) Patient Instructions My [facility] Problem Qualifiers
[2016-11-02 20:31] LABS: URINE APPEARANCE CLEAR (CLEAR); URINE BILIRUBIN NEG (NEG); URINE COLOR YELLOW; URINE NITRITE NEG (NEG); URINE PH 6.5 (4.5-7.5); URINE SPECIFIC GRAVITY 1.019 (1.000-1.030); UROBILINOGEN NEG (NEG); ZZUR CULT IF INDIC CLEAN CATCH YES
[2016-11-02 20:32] LABS: MANUAL MICROSCOPIC REQUIRED? NO; REVIEW REQ? NO
[2016-11-02] MEDS: TRAMADOL HCL 50 MG TAB PO SCH (22:15)
[2016-11-02] MEDS ORDERED: ACETAMINOPHEN 325 MG TAB PO PRN (22:15)
[2016-11-02] MEDS ORDERED: POLYETHYLENE (MIRALAX) 17 GM PACK PO PRN (22:15)
[2016-11-02] MEDS ORDERED: ONDANSETRON INJ 2 MG/ML 2 ML VIAL IV PRN (22:15)
[2016-11-02] MEDS ORDERED: MECLIZINE HCL 12.5 MG TAB PO PRN (22:15)
--- NOTE | 2016-11-02 22:25 | History and Physical ---
History & Physical Date & Time of Service: Nov 02, 2016 at 22:25 Chief Complaint: Dizzy- Balance Primary Care Physician: Domo Alanis D.O. History of Present Illness Source: patient 76-year-old male with a past medical history of asthma, bradycardia, COPD, CVA, gout, hypertension, liver cirrhosis, diabetes, right ureteral calculus, history of C. difficile colitis presented to the ER with complaints of persistent dizziness within the last week. The patient stated that this morning but is trying to get out of the bed he felt lightheaded and fell back onto the bed. Also complains of right flank pain, 8/10 in severity associated with nausea. Complains of pain in the center of his chest and has shortness of breath on exertion. He stated that he had recently had stress test done which were normal. Denies any vomiting, diarrhea, urinary frequency, dysuria or hematuria. He stated that he often has back pain secondary to vertebral fracture. He also stated that recently he had increased his dose of lactulose to 60 mg twice daily from 30 mg twice daily in the last 2 days. Denies any fevers or chills, rashes, recent tick bites Past Medical/Surgical History Medical Problems: (1) Asthma Status: Chronic (2) Calcaneal spur Status: Resolved (3) Carpal tunnel syndrome Status: Resolved (4) COPD (chronic obstructive pulmonary disease) Status: Chronic (5) CVA (cerebral vascular accident) Status: Resolved (6) Gout Status: Resolved (7) Hypertension Status: Chronic (8) Liver disease Status: Chronic Family History Cancer FHx: hemochromatosis Heart disease Hypertension Social History Smoking Status: Never Smoker Drug Use: none Marital Status: Housing status: lives alone Occupational Status: retired Multi-Drug Resistant Organisms History of MDRO: No Allergies Coded Allergies: Oxycodone (Verified Allergy, Mild, SHORTNESS OF BREATH, 11/02/16) wheezing ??? Dobutamine (Verified Allergy, Unknown, abd pain, 11/02/16) Iodinated Diagnostic Agents (Verified Allergy, Unknown, HIVES, 11/02/16) Meperidine (Verified Allergy, Unknown, ANAPHYLAXIS, 11/02/16) Perflutren (Verified Allergy, Unknown, abd pain, 11/02/16) Propylene Glycol (Verified Allergy, Unknown, abd pain, 6/14/17) Home Medications Scheduled Allopurinol (Allopurinol), 300 MG PO QAM Aspirin (Aspirin EC Low Dose), 81 MG PO QAM Atorvastatin (Lipitor), 40 MG PO QAM Budesonide (Pulmicort Respules 0.5MG/2ML), 2 ML INH BID Carvedilol (Carvedilol), 3.125 MG PO BID Cyanocobalamin (Cyanocobalamin), 1,000 MCG IM WK Doxycycline Hyclate (Doxycycline Hyclate), 100 MG PO BID Formoterol Fumarate (Perforomist), 2 ML INH BID Gabapentin (Neurontin), 300 MG PO QPM Insulin Aspart (Novolog), 1 DOSE SQ SLIDING SCALE Insulin Glargine (Toujeo Solostar), 20 UNITS INJ HS Lactulose (Lactulose), 40 GM PO DAILY Levothyroxine Sodium (Synthroid), 50 MCG PO QAM Magnesium Oxide (Mag-Ox), 400 MG PO QAM Nitroglycerin (Nitrostat), 0.4 MG UT PRN Pantoprazole Sodium (Protonix), 40 MG PO QPM Paroxetine (Paroxetine HCl), 10 MG PO QAM Rifaximin (Xifaxan), 550 MG PO BID Tamsulosin Hcl (Flomax), 0.4 MG PO QPM Thiamine HCl (Vitamin B-1), 200 MG PO BID Tramadol HCl (Tramadol HCl), 50 MG PO Q12H Scheduled PRN Meclizine Hcl (Meclizine Hcl), 1 TAB PO Q6H PRN for Dizziness or Vertigo Review of Systems Constitutional: + problem reported (dizziness ), No fever, No chills Eyes: No worsening of vision ENT: No hearing loss Respiratory: No cough, No sputum, No shortness of breath Cardiovascular: + chest pain Abdomen: + pain (right-sided flank pain), + nausea, + diarrhea, No vomiting, No GI bleeding Musculoskeletal: No joint pain Genitourinary - Male: No hematuria, No dysuria Neurologic: No memory loss, No paralysis Psychiatric: No depression symptoms Endocrine: No fatigue Hematologic / Lymphatic: No abnormal bleeding/bruising Integumentary: No rash Physical Exam Vital Signs Date Time Temp Pulse Resp B/P (MAP) Pulse Ox O2 Delivery O2 Flow Rate FiO2 11/02/16 21:36 65 16 135/76 97 Room Air 11/02/16 21:23 67 11/02/16 19:30 59 16 150/86 99 Room Air 11/02/16 18:23 71 20 135/84 99 Room Air 11/02/16 17:23 63 11/02/16 17:13 61 16 139/80 98 Room Air 62 150/84 70 139/76 11/02/16 15:54 36.9 64 20 142/91 97 Room Air General Appearance: WD/WN, no apparent distress Head: normocephalic Eyes: normal inspection Neck: supple Respiratory/Chest: chest non-tender, lungs clear, normal breath sounds, no respiratory distress, no accessory muscle use Cardiovascular: + bradycardia Abdomen/GI: normal bowel sounds, soft, + tenderness (tenderness right upper quadrant to flank area) Back: no CVA tenderness Extremities/Musculoskelatal: no pedal edema Neurologic/Psych: alert, normal mood/affect, oriented x 3 Skin: + rash (on the right shoulder area, he has circular ,erythematous raised rash with a central darker area) Diagnostics Laboratory Results Results Past 24 Hours Test 11/02/16 17:25 11/02/16 17:43 11/02/16 20:15 11/02/16 22:22 Range/Units White Blood Count 6.52 4.8-10.8 K/uL Red Blood Count 4.00 4.7-6.1 M/uL Hemoglobin 12.9 14.0-18.0 g/dL Hematocrit 37.1 42-52 % Mean Corpuscular Volume 92.8 80-100 fL Mean Corpuscular Hemoglobin 32.3 25-34 pg Mean Corpuscular Hemoglobin Concent 34.8 32-36 g/dl Platelet Count 94 130-400 K/uL Mean Platelet Volume 9.4 7.4-10.4 fL Neutrophils (%) (Auto) 57.5 % Lymphocytes (%) (Auto) 26.2 % Monocytes (%) (Auto) 9.5 % Eosinophils (%) (Auto) 5.7 % Basophils (%) (Auto) 0.8 % Neutrophils # (Auto) 3.75 1.4-6.5 K/uL Lymphocytes # (Auto) 1.71 1.2-3.4 K/uL Monocytes # (Auto) 0.62 0.11-0.59 K/uL Eosinophils # (Auto) 0.37 0-0.5 K/uL Basophils # (Auto) 0.05 0-0.2 K/uL RDW Standard Deviation 52.4 36.4-46.3 fL RDW Coefficient of Variation 15.4 11.5-14.5 % Immature Granulocyte % (Auto) 0.3 % Immature Granulocyte # (Auto) 0.02 0.00-0.02 K/uL Prothrombin Time 11.2 9.0-12.0 SECONDS Prothromb Time International Ratio 1.0 0.9-1.1 Activated Partial Thromboplast Time 28.1 21.0-31.0 SECONDS Partial Thromboplastin Ratio 1.1 Sodium Level 146 136-145 mmol/L Potassium Level 4.4 3.5-5.1 mmol/L Chloride Level 114 98-107 mmol/L Carbon Dioxide Level 25 21-32 mmol/L Anion Gap 7.0 3-11 mmol/L Blood Urea Nitrogen 26 7-18 mg/dl Creatinine 1.30 0.60-1.40 mg/dl Est Creatinine Clear Calc Drug Dose 59.0 ml/min Estimated GFR () 61.9 Estimated GFR (Non- 53.4 BUN/Creatinine Ratio 19.8 10-20 Random Glucose 92 70-99 mg/dl Calcium Level 10.1 8.5-10.1 mg/dl Phosphorus Level 2.5 2.5-4.9 mg/dl Magnesium Level 2.0 1.8-2.4 mg/dl Total Bilirubin 1.1 0.2-1 mg/dl Direct Bilirubin 0.3 0-0.2 mg/dl Aspartate Amino Transf (AST/SGOT) 20 15-37 U/L Alanine Aminotransferase (ALT/SGPT) 29 12-78 U/L Alkaline Phosphatase 77 45-117 U/L Total Creatine Kinase 56 39-308 U/L Creatine Kinase MB 1.5 0.5-3.6 ng/ml Creatine Kinase MB Ratio 2.7 0-3.0 Troponin I < 0.015 0-0.045 ng/ml Total Protein 7.1 6.4-8.2 gm/dl Albumin 3.6 3.4-5.0 gm/dl Lipase 120 73-393 U/L Ammonia 125.0 11-32 umol/L Urine Color YELLOW Urine Appearance CLEAR CLEAR Urine pH 6.5 4.5-7.5 Urine Specific Bradley 1.019 1.000-1.030 Urine Protein NEG NEG Urine Glucose (UA) NEG NEG Urine Ketones NEG NEG Urine Occult Blood NEG NEG Urine Nitrite NEG NEG Urine Bilirubin NEG NEG Urine Urobilinogen NEG NEG Urine Leukocyte Esterase TRACE NEG Urine WBC (Auto) 1-5 0-5 /hpf Urine RBC (Auto) 0-4 0-4 /hpf Urine Hyaline Casts (Auto) 0 0-5 /lpf Urine Epithelial Cells (Auto) 5-10 0-5 /lpf Urine Bacteria (Auto) 2+ NEG Microbiology Results 11/02/16 Urine Culture, Received Pending Diagnostic Radiology HEAD CT NONCONTRAST CT DOSE: 2847.67 mGy.cm HISTORY: Mental status change Generalized Weakness TECHNIQUE: Multiaxial CT images of the head were performed without the use of intravenous contrast. Comparison: 09/13/2016 Findings: The paranasal sinuses and mastoid air cells are clear. The calvarium and skull base are intact. The ventricles and sulci are within normal limits. There is no mass, hematoma, midline shift, or acute infarct. Impression: No acute intracranial abnormality. Electronically signed by: Yayo Reyes M.D. 11/02/2016 6:15 PM Dictated Date/Time: 11/02/2016 6:14 PM [~ rep ct add3]] CHEST ONE VIEW PORTABLE CLINICAL HISTORY: Generalized Weakness pain COMPARISON STUDY: 09/13/2016 FINDINGS: The bones soft tissues and hemidiaphragms are normal. The cardiomediastinal silhouette is normal. The lungs are clear. The pulmonary vasculature is normal. IMPRESSION: Negative chest. ABDOMEN AND PELVIS CT WITHOUT CONTRAST CT DOSE: HISTORY: Pain RUQ/Right flank pain TECHNIQUE: Multiaxial CT images of the abdomen and pelvis were performed without the use of intravenous and oral contrast according to the standard department stone protocol. COMPARISON STUDY: 06/27/2016 FINDINGS: Chronic basilar interstitial fibrotic change. Hepatic cirrhosis. Mild splenomegaly. Prior cholecystectomy. Kidneys negative for calcification or hydronephrosis. Bowel pattern is considered nonobstructive. Scattered colonic diverticuli. No evidence for acute diverticulitis. Prior partial sigmoid resection. Bladder is midline. Bowel pattern is nonobstructive. IMPRESSION: 1. Hepatic cirrhosis. 2. Prior cholecystectomy. 3. Scattered colonic diverticulosis with no evidence for acute diverticulitis. 4. Prior cholecystectomy and a partial sigmoid resection all unchanged from the prior study. 5. No acute process the abdomen or pelvis. Impression Assessment and Plan 76-year-old male with a past medical history of asthma, bradycardia, COPD, CVA, gout, hypertension, liver cirrhosis, diabetes, right ureteral calculus, history of C. difficile colitis presented to the ER with complaints of persistent dizziness within the last week. The patient stated that this morning but is trying to get out of the bed he felt lightheaded and fell back onto the bed. Right flank pain: - Has a history of cholecystectomy and hepatic cirrhosis - Abdomen and pelvis CT: 1. Hepatic cirrhosis. 2. Prior cholecystectomy. 3. Scattered colonic diverticulosis with no evidence for acute diverticulitis. 4. Prior cholecystectomy and a partial sigmoid resection all unchanged from the prior study. 5. No acute process the abdomen or pelvis. - UA trace leuk esterase with 2+ bacteria( likely contaminated from BM) - Urine culture pending - Pain control with tramadol as needed Hyperammonemia: Suspect if this contributing to" dizziness" - Ammonia level at 125 - Patient however has been subjectively his normal self. He has been treating himself with 60 mg of lactulose twice daily( home dose is actually 30 mg twice a day) - Continue lactulose 60 mg twice a day - Monitor ammonia levels - Gastroenterology consult New-onset rash on right shoulder: ? 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 Y/N: Yes Risk Level: Moderate Given or contraindicated: Unfractionated heparin SQ Resident Tracking Resident Involvement: Resident Care Provided Care Provided: Adult Hospital Medicine Assessment and Plan Attending Addendum: I have physically seen and examined this patient, have directed their medical care, have supervised the medical residents activities, and agree with the H&P as noted above, with the following changes: NONE
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
--- NOTE | 2016-11-02 22:51 | DIAGNOSTIC IMAGING REPORT ---
CERVICAL SPINE 8 VIEWS HISTORY: Pain. Neuropathy. B/L UE NUMBNESS COMPARISON: None. FINDINGS: The cervical spine is visualized from C1 through the superior endplate of T1. There is no fracture. No subluxation. Moderate degenerative disc change throughout. Moderate degenerative change posterior facets. Mild osteophytic narrowing of the bulk of the neuroforamina bilaterally. IMPRESSION: Moderate degenerative change throughout the entire cervical region. Electronically signed by: Yayo Reyes M.D. 11/02/2016 10:49 PM Dictated Date/Time: 11/02/2016 10:48 PM
[2016-11-02 23:19] LABS: LYME DISEASE AB IGG NEG (NEG); LYME DISEASE AB IGM NEG (NEG)
[2016-11-02 23:21] VITALS: BP 143/79; PULSE 55; TEMP 36.8; O2SAT 98; Ht 170.2 cm; Wt 107.2 kg
[2016-11-02] MEDS ORDERED: DEXTROSE 50% 50 ML SYR IV PRN (23:30)
[2016-11-02] MEDS ORDERED: GLUCOSE 40% GEL 15 GM TUBE PO PRN (23:30)
[2016-11-02] MEDS ORDERED: GLUCOSE 10 TABS/TUBE PO PRN (23:30)
[2016-11-02] MEDS ORDERED: GLUCAGON FOR INJ 1 MG VIAL SQ PRN (23:30)
[2016-11-02] MEDS ORDERED: INSULIN HUMAN LISPRO 100 UNITS/ML 3ML PEN SC SCH (23:30)
[2016-11-02] MEDS ORDERED: IV FLUIDS COMPLETED PRN (23:45)
[2016-11-02 23:59] VITALS: O2SAT 98
[2016-11-03] VITALS (14 sets, daily range): BP systolic 105–149; BP diastolic 63–84; PULSE 53–77; TEMP 36.5–36.8; O2SAT 97–99
[2016-11-03 06:04] LABS: MEAN CELL VOLUME 92.3 fL (80-100); MEAN CORPUSCULAR HEMOGLOBIN 31.5 pg (25-34); MEAN CORPUSCULAR HGB CONC 34.2 g/dl (32-36); WHITE BLOOD COUNT 4.99 K/uL (4.8-10.8)
[2016-11-03 06:06] LABS: PLATELET COUNT 70 K/uL (130-400)
[2016-11-03] MEDS: LEVOTHYROXINE 50 MCG TAB PO SCH (06:16)
[2016-11-03 06:49] LABS: BUN/CREATININE RATIO 18.9 (10-20); CALCIUM 9.6 mg/dl (8.5-10.1); CREATININE 1.2 mg/dl (0.60-1.40)
[2016-11-03] MEDS: INSULIN ASPART 100 UNITS/ML 3 ML PEN SC SCH ×4 (07:00→20:33)
[2016-11-03] MEDS: FORMOTEROL FUMA NEBULIZER SOLN 20 MCG/2 ML VIAL INH SCH ×2 (07:20→19:56)
[2016-11-03] MEDS: BUDESONIDE 0.5 MG/2 ML VIAL (PULMICORT) INH SCH ×2 (07:20→19:56)
[2016-11-03] MEDS: DOXYCYCLINE HYCLATE 100 MG CAP PO SCH ×2 (07:36→20:32)
[2016-11-03] MEDS: CARVEDILOL 3.125 MG TAB PO SCH ×2 (07:37→20:30)
[2016-11-03] MEDS: ATORVASTATIN 20 MG TAB PO SCH (07:37)
[2016-11-03] MEDS: ALLOPURINOL 300 MG TAB PO SCH (07:37)
[2016-11-03] MEDS: PAROXETINE 20 MG TAB PO SCH (07:38)
[2016-11-03] MEDS: MAGNESIUM OXIDE 400 MG TAB PO SCH (07:38)
[2016-11-03] MEDS: THIAMINE HCL 100 MG TAB PO SCH ×2 (07:39→20:32)
[2016-11-03] MEDS: LIDODERM (LIDOCAINE) PATCH 5% TD SCH (07:40)
--- NOTE | 2016-11-03 07:49 | Family Medicine Progress Note ---
Progress Note Date of Service Nov 03, 2016. Subjective Pt evaluation today including: conversation w/ patient, physical exam, chart review, lab review The patient was seen and examined at bedside. No acute overnight events. Patient is resting comfortably in bed. c/o right sided abdominal pain, especially on palpation and central back pain. Pt is eating and urinating well. Upon rounding in the AM pt states that his dizziness has gone away, on afternoon rounds pt is complaining of dizziness. Tele showed sinus rhythm without any events. Pt's PCP is Dr. Pepe in [facility]. Plan of care was described to the patient and all questions were answered. Objective Physical Exam General Appearance: WD/WN, no apparent distress, + obese Neck: supple Cardiovascular: regular rate, rhythm, no edema, no gallop, no JVD, no murmur Abdomen: normal bowel sounds, no pulsatile mass, + pertinent finding (TTP in the RLQ, ) Extremities: + pertinent finding (no significant TTP over the lumbar area and the paravertebral area. ) Neurologic/Psychiatric: dedicated driver II-XII nml as tested, no motor/sensory deficits, alert, normal mood/affect, oriented x 3 Skin: + pertinent finding (4cm circular erythematous lesions with central red area, and 0.5cm red border, raised, not itchy, with pink-white clearing around central focus. ) Assessment and Plan 76M with a past medical history of asthma, bradycardia, COPD, CVA, gout, hypertension, liver cirrhosis, diabetes, right ureteral calculus, history of C. difficile colitis presented to the ER with complaints of persistent dizziness within the last week and chronic right abdominal pain and back pain. The patient stated that this morning but is trying to get out of the bed he felt lightheaded and fell back onto the bed. Hyperammonemia likely cause of new onset dizziness - No signs of encephalopathy. Pt says dizziness is improving. - Ammonia level at 125-->81, will recheck in AM. - GI recommendations - Decrease Lactulose to once daily, low sodium diet and rifaximin 550mg BID. Right flank pain - Has a history of cholecystectomy and hepatic cirrhosis - Abdomen and pelvis CT: 1. Hepatic cirrhosis. 2. Prior cholecystectomy. 3. Scattered colonic diverticulosis with no evidence for acute diverticulitis. 4. Prior cholecystectomy and a partial sigmoid resection all unchanged from the prior study. 5. No acute process the abdomen or pelvis. - UA trace leuk esterase with 2+ bacteria (likely contaminated from BM) - Urine culture - Pin point growth, reincubating. - Per GI, abdominal discomfort may be related to Lactulose. Recs as above. New-onset rash on right shoulder, Lyme like rash - Lyme serology negative. However rash is too characteristic of Lyme, will continue Doxycycline 100 mg twice a day Thrombocytopenia: - No evidence of bleeding - Baseline around 80-90 K -Likely secondary to liver cirrhosis Gout - Continue allopurinol COPD - Continue Pulmicort, Perforomist Hypothyroidism - Continue Synthroid Neuropathy - Continue gabapentin Diabetes - Home medications on hold - Insulin sliding scale History of CVA - Continue aspirin, Lipitor BPH - Continue Flomax History of T12 compression fracture: - Avoid NSAIDs and Tylenol considering cirrhosis and CKD - Lidoderm patch/ tramadol DVT prophylaxis - Heparin subcutaneous Disposition: Med Surg Full Code. Resident Physician Supervision Note: I interviewed and examined the patient. Discussed with Dr. Marquez and agree with findings and plan as documented in the note. Any exceptions or clarifications are listed here: None Documented By: Jatinder Castelan feeling better except for some R sided abdominal pain. less dizzy. ROS otherwise negative except for as above vitals noted nad breathing unlabored R poseteroir upper back area c/w erythema migrans ~6cm in diameter, nontender nonpruritic. abd soft nd, mild R lower abdominal tenderness no guarding no rebound. dizziness - nonspecific but probably relates in no small part to ammonia. continue to follow RLQ pain - likely gas/cramping from lactulose, - examines fairly benign except for mild tenderness. follow erythema migrans - endemic area, doxycycline Resident Involvement: Resident Care Provided Care Provided: Adult Hospital Medicine
[2016-11-03] MEDS: ASPIRIN 81 MG ECTAB PO SCH (08:21)
[2016-11-03] MEDS ORDERED: LACTULOSE SYRUP 20 GM/30 ML UDC PO SCH (09:00)
[2016-11-03] MEDS: TRAMADOL HCL 50 MG TAB PO SCH ×2 (10:41→22:15)
--- NOTE | 2016-11-03 11:32 | Gastrointestinal Consultation ---
Gastrointestinal Consultation Date of Consultation: Nov 03, 2016 Attending Physician: Dr. Hinds Consulting Physician: Dr. Jackie Haro Reason for Consultation: Hyperammonenia, hx of cirrhosis History of Present Illness Patient is a [address] 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 He has a hx of FUENTES/ETOH cirrhosis though he hasn't drank alcohol in many years. Eval in the showed an elevated ammonia and he was subsequently admitted. GI is consulted for elevated ammonia level and cirrhosis. Ammonia was 125 on arrival and today is 81. The pt tells me that, at home, a few days ago, he had dizziness and because of this, neighbors brought him to the ED. He denies any recent confusion though he is on lactulose recently increased to BID and tells me that he is occasionally, "off." When he is "off," he is careful to stay home and in a few days, he is back to normal. He has chronic abdominal pain for which he has undergone several CTs, EGD and colonoscopy w/o cause of the pain. The pt denies any recent diarrhea, constipation, melena or hematochezia. Past Medical/Surgical History Medical Problems: (1) Abdominal pain Status: Acute (2) Abdominal pain of unknown etiology Status: Acute (3) Altered mental status Status: Acute (4) Back pain Status: Acute (5) C. difficile colitis Status: Acute (6) C. difficile diarrhea Status: Acute (7) Chronic headache Status: Acute (8) Compression fracture Status: Acute (9) Confusion Status: Acute (10) Dehydration Status: Acute (11) Headache Status: Acute (12) Hydronephrosis with renal calculous obstruction Status: Acute (13) Low back strain Status: Acute (14) Palpitation Status: Acute (15) Right sided weakness Status: Acute (16) RUQ pain Status: Acute Past Medical History: 1. GERD/Orellana's 2. GOut 3. Hemachromatosis 4. HTN 5. NAFLD 6. Kidney stones 7. CVA 8. Hypothyroidism 9. DM 10. C-diff Past Surgical History: 1. Ventral hernia repair with mesh 03/24/16 2. Muscle-skin flap of the trunk 03/24/2016 3. cholecystectomy in 2008 4. Partial colectomy for diverticulitis in 2007 and again in 2012 5. EGD 06/09/15 normal but with hx of Orellana's with recommendation for repeat in 2 yrs. [address] Haro for fecal transplant on 08/11/16: Normal ileum, moderate sigmoid diverticulosis. 7. EGD Dr. Bartlett for abd pain 03/08/16: normal. Family History Cancer FHx: hemochromatosis Heart disease Hypertension Social History Smoking Status: Former Smoker Alcohol Use: none Drug Use: none Marital Status: Housing Status: lives alone Occupation Status: retired Allergies Coded Allergies: Oxycodone (Verified Allergy, Mild, SHORTNESS OF BREATH, 11/02/16) wheezing ??? Dobutamine (Verified Allergy, Unknown, abd pain, 11/02/16) Iodinated Diagnostic Agents (Verified Allergy, Unknown, HIVES, 11/02/16) Meperidine (Verified Allergy, Unknown, ANAPHYLAXIS, 11/02/16) Perflutren (Verified Allergy, Unknown, abd pain, 11/02/16) Propylene Glycol (Verified Allergy, Unknown, abd pain, 11/02/16) Current Medications Home Meds and Scripts Medications Dose Route/Sig Max Daily Dose Days Date Category Dose Instructions Novolog (Insulin Aspart) 100 Units/Ml Inj 1 Dose SQ SLIDING SCALE 11/02/16 Reported Tramadol HCl 50 Mg Tab 50 Mg PO Q12H 3 09/16/16 Rx Vitamin B-1 (Thiamine HCl) 100 Mg Tab 200 Mg PO BID 14 09/16/16 Rx Cyanocobalamin 1,000 Mcg/Ml Inj 1,000 Mcg IM WK 30 09/16/16 Rx once weekly x 4 weeks the once a month until follow-up Aspirin EC Low Dose (Aspirin) 81 Mg Ectab 81 Mg PO QAM 14 09/16/16 Rx Carvedilol 3.125 Mg Tab 3.125 Mg PO BID 14 09/16/16 Rx Lipitor (Atorvastatin Calcium) 40 Mg Tab 40 Mg PO QAM 09/06/16 Reported Meclizine Hcl 25 Mg Tab 1 Tab PO Q6H PRN 10 09/06/16 Reported Lactulose (Lactulose (Encephalopathy)) 10 Gm/15 Ml Jessica 30 Ml PO BID 09/06/16 Reported Neurontin (Gabapentin) 300 Mg Cap 300 Mg PO QPM 06/27/16 Reported Pulmicort Respules 0.5MG/2ML (Budesonide) 0.5 Mg/2 Ml Nebu 2 Ml INH BID 04/20/16 Reported Perforomist (Formoterol Fumarate) 20 Mcg/2 Ml Neb 2 Ml INH BID 04/20/16 Reported Nitrostat (Nitroglycerin) 0.4 Mg Tab 0.4 Mg UT PRN 01/21/16 Reported Flomax (Tamsulosin Hcl) 0.4 Mg Cap 0.4 Mg PO QPM 01/15/16 Reported Mag-Ox (Magnesium Oxide) 400 Mg Tab 400 Mg PO QAM 10/09/15 Reported Toujeo Solostar (Insulin Glargine) 300 Unit/Ml Inj 20 Units INJ HS 10/09/15 Reported Protonix (Pantoprazole Sodium) 40 Mg Tab 40 Mg PO QPM 06/04/15 Reported Paroxetine HCl (Paroxetine) 10 Mg Tab 10 Mg PO QAM 06/04/15 Reported Allopurinol 300 Mg Tab 300 Mg PO QAM 02/05/14 Reported 0800 Synthroid (Levothyroxine Sodium) 50 Mcg Tab 50 Mcg PO QAM 02/05/14 Reported 0600 Review of Systems Constitutional: No fever, No chills, No sweats, No weight loss, No weakness Eyes: No eye pain, No redness ENT: No sore throat, No trouble swallowing, No pain on swallowing Respiratory: No cough, No wheezing, No shortness of breath, No dyspnea on exertion Cardiac: No chest pain, No edema, No palpitations Abdomen: + see HPI Neuro: No memory loss, No weakness, No numbness/tingling, No vertigo, No balance problems Psych: No depression symptoms, No anxiety, No insomnia Heme: No abnormal bleeding/bruising, No night sweats Endo: No excessive thirst, No excessive urination Skin: No rash, No itch, No new/changing skin lesions, No jaundice Physical Exam Date Time Temp Pulse Resp B/P (MAP) Pulse Ox O2 Delivery O2 Flow Rate FiO2 11/03/16 11:14 36.6 58 16 105/63 (77) 97 11/03/16 08:00 99 Room Air 11/03/16 07:35 77 139/79 (99) 11/03/16 07:20 53 16 98 Room Air 11/03/16 07:07 36.5 54 18 134/80 (98) 98 11/03/16 04:00 98 Room Air 11/03/16 03:38 36.6 53 17 124/73 (90) 98 Room Air 11/02/16 23:59 98 Room Air 11/02/16 23:21 36.8 55 16 143/79 98 Room Air 11/02/16 22:39 65 16 135/76 97 11/02/16 21:36 65 16 135/76 97 Room Air 11/02/16 21:23 67 11/02/16 19:30 59 16 150/86 99 Room Air 11/02/16 18:23 71 20 135/84 99 Room Air 11/02/16 17:23 63 11/02/16 17:13 61 16 139/80 98 Room Air 62 150/84 70 139/76 11/02/16 15:54 36.9 64 20 142/91 97 Room Air General Appearance: no apparent distress, + obese Eyes: normal inspection, EOMI Neck: supple, no adenopathy, thyroid normal Respiratory/Chest: chest non-tender, lungs clear, normal breath sounds, no accessory muscle use Cardiovascular: regular rate, rhythm, no JVD, no murmur Abdomen: normal bowel sounds, soft, no organomegaly, + tenderness (bilateral lower abomen, moderate tenderness) Extremities: normal inspection, no pedal edema, normal capillary refill Neurologic/Psych: alert, normal mood/affect, oriented x 3 Skin: normal color, no jaundice, warm/dry, no rash Laboratory Results Last 24 Hours Test 11/02/16 17:25 11/02/16 17:43 11/02/16 20:15 11/03/16 05:54 White Blood Count 6.52 K/uL 4.99 K/uL Red Blood Count 4.00 M/uL 3.90 M/uL Hemoglobin 12.9 g/dL 12.3 g/dL Hematocrit 37.1 % 36.0 % Mean Corpuscular Volume 92.8 fL 92.3 fL Mean Corpuscular Hemoglobin 32.3 pg 31.5 pg Mean Corpuscular Hemoglobin Concent 34.8 g/dl 34.2 g/dl Platelet Count 94 K/uL 70 K/uL Mean Platelet Volume 9.4 fL 9.0 fL Neutrophils (%) (Auto) 57.5 % Lymphocytes (%) (Auto) 26.2 % Monocytes (%) (Auto) 9.5 % Eosinophils (%) (Auto) 5.7 % Basophils (%) (Auto) 0.8 % Neutrophils # (Auto) 3.75 K/uL Lymphocytes # (Auto) 1.71 K/uL Monocytes # (Auto) 0.62 K/uL Eosinophils # (Auto) 0.37 K/uL Basophils # (Auto) 0.05 K/uL RDW Standard Deviation 52.4 fL 51.4 fL RDW Coefficient of Variation 15.4 % 15.2 % Immature Granulocyte % (Auto) 0.3 % Immature Granulocyte # (Auto) 0.02 K/uL Prothrombin Time 11.2 SECONDS Prothromb Time International Ratio 1.0 Activated Partial Thromboplast Time 28.1 SECONDS Partial Thromboplastin Ratio 1.1 Sodium Level 146 mmol/L 145 mmol/L Potassium Level 4.4 mmol/L 4.0 mmol/L Chloride Level 114 mmol/L 112 mmol/L Carbon Dioxide Level 25 mmol/L 25 mmol/L Anion Gap 7.0 mmol/L 8.0 mmol/L Blood Urea Nitrogen 26 mg/dl 23 mg/dl Creatinine 1.30 mg/dl 1.20 mg/dl Est Creatinine Clear Calc Drug Dose 59.0 ml/min 62.5 ml/min Estimated GFR () 61.9 68.1 Estimated GFR (Non- 53.4 58.8 BUN/Creatinine Ratio 19.8 18.9 Random Glucose 92 mg/dl 113 mg/dl Calcium Level 10.1 mg/dl 9.6 mg/dl Phosphorus Level 2.5 mg/dl Magnesium Level 2.0 mg/dl Total Bilirubin 1.1 mg/dl 1.4 mg/dl Direct Bilirubin 0.3 mg/dl Aspartate Amino Transf (AST/SGOT) 20 U/L 18 U/L Alanine Aminotransferase (ALT/SGPT) 29 U/L 25 U/L Alkaline Phosphatase 77 U/L 73 U/L Total Creatine Kinase 56 U/L Creatine Kinase MB 1.5 ng/ml Creatine Kinase MB Ratio 2.7 Troponin I < 0.015 ng/ml Total Protein 7.1 gm/dl 6.4 gm/dl Albumin 3.6 gm/dl 3.2 gm/dl Lipase 120 U/L Lyme Disease IgG Antibody NEG Lyme Disease IgM Antibody NEG Ammonia 125.0 umol/L 81.0 umol/L Urine Color YELLOW Urine Appearance CLEAR Urine pH 6.5 Urine Specific [place] 1.019 Urine Protein NEG Urine Glucose (UA) NEG Urine Ketones NEG Urine Occult Blood NEG Urine Nitrite NEG Urine Bilirubin NEG Urine Urobilinogen NEG Urine Leukocyte Esterase TRACE Urine WBC (Auto) 1-5 /hpf Urine RBC (Auto) 0-4 /hpf Urine Hyaline Casts (Auto) 0 /lpf Urine Epithelial Cells (Auto) 5-10 /lpf Urine Bacteria (Auto) 2+ Globulin 3.2 gm/dl Albumin/Globulin Ratio 1.0 Test 11/03/16 06:46 Bedside Glucose 119 mg/dl Impression Patient is a 76 year old male with FUENTES/ETOH cirrhosis (though hasn't drank heavily for about 20 yrs) with chronically elevated ammonia levels. He denies any recent confusion so I'm not sure if he may have had mild hepatic encephalopathy that has cleared vs. clinically insignificant elevated serum ammonia. Regarding his abdominal pain, it is chronic, unchanged and he has undergone EGD, Colonoscopy and multiple CT scans in the past year w/o cause of the pain. I suspect it is functional or adhesive disease, related to prior sigmoid resection. Plan 1. Lactulose can sometimes cause abdominal pain, decrease to once daily. 2. Review of OP records shows that he has not been on Rifaxamin, so would add that: 550mg BID. 3. Would check ammonia only if pt is confused as is not significant if no other signs of encephalopathy. 4. 2 gram sodium diet. 5. Continue OP GI f/u with Ledy Barker and Dr. Bartlett. I saw and evaluated the patient. The patient was admitted with abdominal discomfort and a question of hepatic encephalopathy. He notes that he is at his baseline mental status this afternoon. His abdominal discomfort could be related to use of lactulose and I would suggest decreasing the dose to 1 time daily and addition of rifaximin for his history of hepatic encephalopathy. PE NAD No asterixis Impression: Patient with a history of abdominal discomfort possibly related to use of lactulose recommendations rifaximin 550 mg twice daily decrease lactulose to 1 time daily low sodium diet please call with questions or concerns, GI to sign off
[2016-11-03] MEDS: RIFAXIMIN TAB 550 MG TAB PO SCH (20:32)
[2016-11-03] MEDS ORDERED: TAMSULOSIN HCL 0.4 MG CAP PO SCH (21:00)
[2016-11-03] MEDS ORDERED: GABAPENTIN 300 MG CAP PO SCH (21:00)
[2016-11-03] MEDS ORDERED: PANTOprazole SOD 40 MG TAB PO SCH (21:00)
[2016-11-04] MEDS: LEVOTHYROXINE 50 MCG TAB PO SCH (06:01)
[2016-11-04 07:20] VITALS: PULSE 59; O2SAT 99
[2016-11-04] MEDS: FORMOTEROL FUMA NEBULIZER SOLN 20 MCG/2 ML VIAL INH SCH (07:20)
[2016-11-04] MEDS: BUDESONIDE 0.5 MG/2 ML VIAL (PULMICORT) INH SCH (07:20)
[2016-11-04 07:35] VITALS: BP 115/77; PULSE 62; TEMP 36.9; O2SAT 96
[2016-11-04 07:48] LABS: MEAN CELL VOLUME 90.2 fL (80-100); MEAN CORPUSCULAR HEMOGLOBIN 30.2 pg (25-34); MEAN CORPUSCULAR HGB CONC 33.5 g/dl (32-36); WHITE BLOOD COUNT 6.38 K/uL (4.8-10.8)
[2016-11-04 08:06] LABS: MEAN PLATELET VOLUME 10.2 fL (7.4-10.4); PLATELET COUNT 86 K/uL (130-400)
[2016-11-04 08:08] LABS: COMPLETE YES; EOSINOPHIL % 3.5 %; LYMPH ABS # 0.62 K/uL (1.2-3.4); LYMPHOCYTE % 9.7 %; NEUTROPHILS % 74.4 %; VARIANT LYM ABS # 0.17 K/uL; VARIANT LYMPHOCYTE % 2.7 %
[2016-11-04 08:19] LABS: BUN/CREATININE RATIO 17.7 (10-20); CREATININE 1.6 mg/dl (0.60-1.40)
[2016-11-04 08:21] LABS: ALB/GLOB RATIO 0.9 (0.9-2)
[2016-11-04] MEDS: LIDODERM (LIDOCAINE) PATCH 5% TD SCH (08:41)
[2016-11-04] MEDS: CARVEDILOL 3.125 MG TAB PO SCH (08:42)
[2016-11-04] MEDS: MAGNESIUM OXIDE 400 MG TAB PO SCH (08:42)
[2016-11-04] MEDS: ALLOPURINOL 300 MG TAB PO SCH (08:42)
[2016-11-04] MEDS: RIFAXIMIN TAB 550 MG TAB PO SCH (08:42)
[2016-11-04] MEDS: DOXYCYCLINE HYCLATE 100 MG CAP PO SCH (08:42)
[2016-11-04] MEDS: ASPIRIN 81 MG ECTAB PO SCH (08:42)
[2016-11-04] MEDS: PAROXETINE 20 MG TAB PO SCH (08:42)
[2016-11-04] MEDS: ATORVASTATIN 20 MG TAB PO SCH (08:42)
[2016-11-04] MEDS: THIAMINE HCL 100 MG TAB PO SCH (08:42)
[2016-11-04] MEDS: INSULIN ASPART 100 UNITS/ML 3 ML PEN SC SCH ×2 (08:47→12:30)
[2016-11-04] MEDS ORDERED: LACTULOSE SYRUP 20 GM/30 ML UDC PO SCH (09:00)
[2016-11-04] MEDS: TRAMADOL HCL 50 MG TAB PO SCH (09:42)
[2016-11-04] MEDS ORDERED: SODIUM CHLORIDE 0.9% 1000ML 1,000 ML IV STA (10:57)
[2016-11-04] MEDS ORDERED: XFX550 PO (11:26)
[2016-11-04] MEDS ORDERED: LCTL30 PO (11:26)
[2016-11-04] MEDS ORDERED: DXY100 PO (11:26)
--- NOTE | 2016-11-04 11:46 | Discharge Instructions ---
Discharge Instructions Date of Service Nov 04, 2016. Admission Reason for Admission: Hyperammonemia Discharge Discharge Diagnosis / Problem: GI Bleed, Hyperammonemia Discharge Goals Goal(s): Decrease discomfort, Improve function, Increase independence, Improve disease control, Improve nutritional status Activity Recommendations Activity Limitations: resume your previous activity . Instructions / Follow-Up Instructions / Follow-Up A follow up appointment with Dr. Bartlett will be arranged for you, please keep this appointment. We also recommend you should see your primary care provider within the next week - an appointment will be arranged for you. We recommend you take 40mg of Lactulose once a day. Lactulose may cause GI upset which might have been the cause of some of your symptoms. You are also being prescribed Rifaximin 550mg to be taken every 12 hours. This medication will help your liver enzymes. Please continue this medication until you consult with your Termite Treater. Rash - You are being given a 21 day prescription for Doxycycline. You should take this medication every 12 hours. This is to treat your Lyme disease which according to the rash on your shoulder and the IgM Lyme Antibody which was elevated, indicate you have a recent infection of Lyme disease. Please follow up with your primary care doctor for this issue. Please continue to stay well hydrated. We recommend at least 64 ounces of water daily in addition to water from meals. The [employer] recently recommended a water intake of approximately 3L (or 100 ounces) for adult males. We also recommend limiting your sodium intake to less than 2g per day. Current Hospital Diet Patient's current hospital diet: Diabetes Type 2 Diet, Low Sodium Diet (2gm Na) Discharge Diet Recommended Diet: Low Sodium Diet (2gm Na), Diabetes Type 1 Diet Pending Studies Studies pending at discharge: no Laboratory Results Hemoglobin A1c Test 09/14/16 14:25 Range/Units Estimated Average Glucose 128 mg/dl Hemoglobin A1c 6.1 H 4.5-5.6 % Lipid Panel Test 09/15/16 05:01 Range/Units Triglycerides Level 84 0-150 mg/dl Cholesterol Level 86 0-200 mg/dl HDL Cholesterol 40 mg/dl Cholesterol/HDL Ratio 2.2 LDL Cholesterol, Calculated 29 mg/dl Medical Emergencies . Who to Call and When: Medical Emergencies: If at any time you feel your situation is an emergency, please call 911 immediately. . Non-Emergent Contact Non-Emergency issues call your: Primary Care Provider, Termite Treater . . "Provider Documentation" section prepared by Yayo Marquez. . VTE Core Measure Inpt VTE Proph given/why not?: Unfractionated heparin SQ Resident Involvement: Resident Care Provided Care Provided: Adult Hospital Medicine
--- NOTE | 2016-11-04 12:02 | Gastroenterology Progress Note ---
Progress Note Date of Service: Nov 04, 2016 Subjective Pt evaluation today including: conversation w/ patient, physical exam, chart review, lab review, review of studies, review of inpatient medication list Mr. Bonner is a 76 yr old male with FUENTES/ETOH cirrhosis, admitted on 11/02 for weakness, elevated ammonia. He has been dx'ed with Lyme's which is likely the cause of his decompensation. He also has chronic abdominal pain and nausea which seems unchanged from baseline. EGD, Colonoscopy and several CTs have been w/o cause. Review of Systems Constitutional: No fever ENT: No hearing loss Respiratory: No cough Cardiac: No chest pain Abdomen: + pain, + nausea, No constipation, No GI bleeding, No dysphagia, No odynophagia, No acolic stools, No jaundice, No dark urine Male : No dysuria Neuro: No memory loss Psych: No depression symptoms Heme: No abnormal bleeding/bruising Endo: + fatigue (mild, but able to ambulate and sit up in the room. ) Skin: No rash, No jaundice Medications Current Inpatient Medications Medications (Trade) Dose Ordered Sig/Ronna Route Start Time Stop Time Status Last Admin Dose Admin Acetaminophen (Tylenol Tab) 650 mg Q4H PRN PO 11/02/16 22:15 12/02/16 22:14 Ondansetron HCl (Zofran Inj) 4 mg Q6H PRN IV 11/02/16 22:15 12/02/16 22:14 Polyethylene (Miralax Powder Packet) 17 gm DAILY PRN PO 11/02/16 22:15 12/02/16 22:14 11/04/16 06:04 17 GM Allopurinol (Zyloprim Tab) 300 mg QAM PO 11/03/16 09:00 12/03/16 08:59 11/04/16 08:42 300 MG Aspirin (Ecotrin Tab) 81 mg QAM PO 11/03/16 09:00 12/03/16 08:59 11/04/16 08:42 81 MG Atorvastatin Calcium (Lipitor Tab) 40 mg QAM PO 11/03/16 09:00 12/03/16 08:59 11/04/16 08:42 40 MG Budesonide (Pulmicort Respules 0.5MG/ 2ML Neb Soln) 1 mg BIDR INH 11/03/16 08:00 12/03/16 07:59 11/04/16 07:20 1 MG Carvedilol (Coreg Tab) 3.125 mg BID PO 11/03/16 09:00 12/03/16 08:59 11/04/16 08:42 3.125 MG Formoterol Fumarate (Perforomist 20MCG/2ML Neb Soln) 40 mcg BIDR INH 11/03/16 08:00 12/03/16 07:59 11/04/16 07:20 40 MCG Gabapentin (Neurontin Cap) 300 mg QPM PO 11/03/16 21:00 12/03/16 20:59 11/03/16 20:31 300 MG Levothyroxine Sodium (Synthroid Tab) 50 mcg DAILYBB PO 11/03/16 06:00 12/03/16 06:59 11/04/16 06:01 50 MCG Magnesium Oxide (Mag-Ox Tab) 400 mg QAM PO 11/03/16 09:00 12/03/16 08:59 11/04/16 08:42 400 MG Meclizine HCl (Antivert Tab) 25 mg Q6H PRN PO 11/02/16 22:15 12/02/16 22:14 Pantoprazole Sodium (Protonix Tab) 40 mg QPM PO 11/03/16 21:00 12/03/16 20:59 11/03/16 20:29 40 MG Tamsulosin HCl (Flomax Cap) 0.4 mg QPM PO 11/03/16 21:00 12/03/16 20:59 11/03/16 20:29 0.4 MG Thiamine HCl (Vitamin B-1 Tab) 200 mg BID PO 11/03/16 09:00 12/03/16 08:59 11/04/16 08:42 200 MG Tramadol HCl (Ultram Tab) 50 mg Q12H PO 11/02/16 22:15 12/02/16 22:14 11/04/16 09:42 50 MG Paroxetine HCl (pAXil TAB) 10 mg QAM PO 11/03/16 09:00 12/03/16 08:59 11/04/16 08:42 10 MG Insulin Aspart (novoLOG ASPART) SLIDING SCALE G... ACHS SC 11/03/16 07:00 12/03/16 06:59 11/04/16 08:47 5 UNITS Insulin Human Lispro (humaLOG KwikPen) SLIDING SCALE UD SC 11/02/16 23:30 12/02/16 23:29 Glucose (Glucose 40% Gel) 15-30 GRAMS 15 GRAMS... UD PRN PO 11/02/16 23:30 12/02/16 23:29 Glucose (Glucose Chew Tab) 4-8 Tablets 4 Tabl... UD PRN PO 11/02/16 23:30 12/02/16 23:29 Dextrose (Dextrose 50% 50ML Syringe) 25-50ML OF 50% DW IV FOR... UD PRN IV 11/02/16 23:30 12/02/16 23:29 Glucagon (Glucagon Inj) 1 mg UD PRN SQ 11/02/16 23:30 12/02/16 23:29 Miscellaneous (Iv Fluids Completed) 1 ea PRN PRN N/A 11/02/16 23:45 11/02/17 23:44 Doxycycline Hyclate (Vibramycin Cap) 100 mg BID PO 11/03/16 09:00 11/13/16 08:59 11/04/16 08:42 100 MG Lidocaine (Lidoderm Patch 5%) 1 patch QAM TD 11/03/16 09:00 12/03/16 08:59 Miscellaneous (Remove Lidoderm Patch) 1 ea DAILY@21 N/A 11/03/16 21:00 12/03/16 20:59 Lactulose (Chronulac Syrup) 40 gm DAILY PO 11/04/16 09:00 12/04/16 08:59 11/04/16 08:41 40 GM Rifaximin (Xifaxan Tab) 550 mg BID PO 11/03/16 21:00 12/03/16 20:59 11/04/16 08:42 550 MG Sodium Chloride 1,000 ml @ 999 mls/hr Q1H1M STAT IV 11/04/16 10:57 11/04/16 11:57 11/04/16 11:09 999 MLS/HR Objective Vital Signs Date Time Temp Pulse Resp B/P (MAP) Pulse Ox O2 Delivery O2 Flow Rate FiO2 11/04/16 08:00 Room Air 11/04/16 07:35 36.9 62 18 115/77 (90) 96 Room Air 11/04/16 07:20 59 16 99 Room Air 11/04/16 04:00 Room Air 11/04/16 00:00 Room Air 11/03/16 23:44 36.8 56 18 129/72 (91) 98 Room Air 11/03/16 20:31 62 149/83 (105) 11/03/16 19:56 61 16 97 Room Air 11/03/16 18:10 Room Air 11/03/16 17:59 36.7 60 20 145/84 (104) 97 Room Air 11/03/16 16:00 99 Room Air 11/03/16 15:30 36.5 56 20 125/77 (93) 98 Room Air 11/03/16 12:00 99 Room Air Physical Exam General Appearance: no apparent distress ENT: pharynx normal Neck: supple, thyroid normal, no JVD Respiratory/Chest: lungs clear Cardiovascular: regular rate, rhythm, no JVD, no murmur Abdomen: soft, + tenderness (bilat lower abd tenderness (chronic)) Extremities: no pedal edema Neurologic/Psych: alert, normal mood/affect, oriented x 3 Skin: normal color, no jaundice Laboratory Results Last 24 Hours Test 11/03/16 16:10 11/03/16 20:27 11/04/16 07:18 11/04/16 07:23 Bedside Glucose 119 mg/dl 160 mg/dl 135 mg/dl White Blood Count 6.38 K/uL Red Blood Count 4.10 M/uL Hemoglobin 12.4 g/dL Hematocrit 37.0 % Mean Corpuscular Volume 90.2 fL Mean Corpuscular Hemoglobin 30.2 pg Mean Corpuscular Hemoglobin Concent 33.5 g/dl Platelet Count 86 K/uL Mean Platelet Volume 10.2 fL RDW Standard Deviation 48.6 fL RDW Coefficient of Variation 14.7 % Neutrophils % (Manual) 74.4 % Lymphocytes % (Manual) 9.7 % Variant Lymphocytes % (manual) 2.7 % Monocytes % (Manual) 9.7 % Eosinophils % (Manual) 3.5 % Neutrophils # (Manual) 4.75 K/uL Total Absolute Neutrophils 4.75 K/uL Lymphocytes # (Manual) 0.62 K/uL Absolute Variant Lymphocytes 0.17 K/uL Total Absolute Lymphocytes 0.79 K/uL Monocytes # (Manual) 0.62 K/uL Eosinophils # (Manual) 0.22 K/uL Sodium Level 138 mmol/L Potassium Level 4.0 mmol/L Chloride Level 106 mmol/L Carbon Dioxide Level 22 mmol/L Anion Gap 10.0 mmol/L Blood Urea Nitrogen 28 mg/dl Creatinine 1.60 mg/dl Est Creatinine Clear Calc Drug Dose 46.6 ml/min Estimated GFR () 48.1 Estimated GFR (Non- 41.5 BUN/Creatinine Ratio 17.7 Random Glucose 120 mg/dl Calcium Level 9.2 mg/dl Total Bilirubin 1.3 mg/dl Aspartate Amino Transf (AST/SGOT) 18 U/L Alanine Aminotransferase (ALT/SGPT) 23 U/L Alkaline Phosphatase 73 U/L Ammonia 78.0 umol/L Total Protein 6.6 gm/dl Albumin 3.2 gm/dl Globulin 3.4 gm/dl Albumin/Globulin Ratio 0.9 Test 11/04/16 11:12 Bedside Glucose 154 mg/dl Assessment and Plan Mr. Bonner is a 76 yr old male with FUENTES/ETOH cirrhosis who experienced decompensation of his liver cirrhosis with a new Lyme infection. Plan: 1. Rifaxim was just added and should be continued. 2. Will limit lactulose as may be contributing to his chronic abdominal pain. 3. Appreciate primary services management of Lyme's Disease. Doxycycline may worsen his chronic abd pain and nausea. 4. Liver disease seems stable. GI will sign off. I saw the patient with Ms. Ryan. He has some nausea which is attributed to his use of doxycycline. The patient can follow up with Dr. Bartlett as an outpatient
[2016-11-04 14:01] LABS: URINE APPEARANCE CLEAR (CLEAR); URINE BILIRUBIN NEG (NEG); URINE COLOR DK YELLOW; URINE EPITHELIAL CELL AUTO 0-5 /lpf (0-5); URINE NITRITE NEG (NEG); URINE SPECIFIC GRAVITY 1.022 (1.000-1.030); UROBILINOGEN NEG (NEG); ZZUR CULT IF INDIC CLEAN CATCH NO
[2016-11-04 14:07] LABS: MANUAL MICROSCOPIC REQUIRED? NO; REVIEW REQ? NO
[2016-11-04 14:34] LABS: CREATININE 1.6 mg/dl (0.60-1.40)
[2016-11-04 14:47] VITALS: BP 123/72; PULSE 55; TEMP 37; O2SAT 98
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
[2016-11-04 15:34] VITALS: BP 123/72; PULSE 55; TEMP 37; O2SAT 98
[2016-11-04 16:19] LABS: CALCIUM 8.9 mg/dl (8.5-10.1)
[2016-12-26] MEDS ORDERED: VITAMIN B12 INJ (09:31)
[2016-12-26] MEDS ORDERED: LACT10SO17 PO (09:31)
[2017-01-09] MEDS ORDERED: HYDR-3419 PO (09:54)
[2017-01-09] MEDS ORDERED: PHEN-775 PO (09:54)
[2017-01-09] MEDS ORDERED: CIPR-255 PO (09:54)
[2017-04-06] MEDS ORDERED: ASPI81TA28 PO (09:31)
[2017-04-06] MEDS ORDERED: CARV3.12 PO (09:31)
[2017-04-06] MEDS ORDERED: THIA100T46 PO (09:35)
[2017-04-06] MEDS ORDERED: CALC625T13 PO (09:36)
[2017-04-06] MEDS ORDERED: CHOL1CAP57 PO (09:37)
[2017-04-06] MEDS ORDERED: MAGN400T6 PO (13:06)
[2017-04-06] MEDS ORDERED: ALL300 PO (13:30)
[2017-04-06] MEDS ORDERED: LEVO50TA PO (13:30)
[2017-04-06] MEDS ORDERED: GABA-113 PO (14:44)
[2017-04-06] MEDS ORDERED: NTRGSL/4 UT (14:47)
== END 2016-11-04 16:31 | disposition home health service (06) ==
LOC: C.EDB 15:31 → C.2T 22:22 → ENRESERV 22:28 → C.MED 11-03 17:53
PROVIDERS: ADMIT Family Medicine; ATTEND Family Medicine
DX: K92.2 Gastrointestinal hemorrhage, unspecified (principal); E72.20 Disorder of urea cycle metabolism, unspecified; J45.909 Unspecified asthma, uncomplicated; J44.9 Chronic obstructive pulmonary disease, unspecified; M10.9 Gout, unspecified; Z90.49 Acquired absence of other specified parts of digestive tract; Z86.73 Personal history of transient ischemic attack (TIA), and cerebral infarction without residual deficits; Z79.4 Long term (current) use of insulin; Z79.82 Long term (current) use of aspirin; Z80.9 Family history of malignant neoplasm, unspecified; Z82.49 Family history of ischemic heart disease and other diseases of the circulatory system; Z88.5 Allergy status to narcotic agent

== ENCOUNTER → 2017-01-09 | Day surgery (SDC) | payer OTHER, MEDICARE ==
[2016-12-26 09:38] VITALS: BMI 37.0
--- NOTE | 2016-12-26 10:22 | PAT Medication Instructions ---
Service Date Dec 26, 2016. Current Home Medication List Allopurinol (Allopurinol), 300 MG PO QAM Aspirin (Aspirin Ec), 81 MG PO QAM Atorvastatin (Lipitor), 40 MG PO QAM Budesonide (Pulmicort Respules 0.5MG/2ML), 2 ML INH BID PRN for PRN Calcium Polycarbophil (Fiber Tabs), 1 TAB PO QAM Carvedilol (Coreg), 3.125 MG PO BID Cholecalciferol (Vitamin D3), 1,000 UNITS PO QAM Formoterol Fumarate (Perforomist), 2 ML INH BID PRN for PRN Gabapentin (Neurontin), 300 MG PO QPM Insulin Aspart (Novolog), 1 DOSE SQ SLIDING SCALE Insulin Glargine (Toujeo Solostar), 20 UNITS INJ HS Lactulose (Chronulac), 40 GM PO BID PRN for RN Levothyroxine Sodium (Synthroid), 50 MCG PO QAM Magnesium Oxide (Mag-Ox), 400 MG PO QAM Meclizine Hcl (Meclizine Hcl), 1 TAB PO Q6H PRN for Dizziness or Vertigo Nitroglycerin (Nitrostat), 0.4 MG UT PRN Pantoprazole Sodium (Protonix), 40 MG PO QPM Paroxetine (Paroxetine HCl), 10 MG PO QAM Tamsulosin Hcl (Flomax), 0.4 MG PO QPM Thiamine Hcl (Vitamin B1), 200 MG PO BID [Vitamin B12], 1,000 MCG INJ QMONTH Medication Instructions For Your Scheduled Surgery - Check with surgeon/scale operator for instructions: Aspirin (Aspirin Ec), 81 MG PO QAM -Continue as directed: [Vitamin B12], 1,000 MCG INJ QMONTH - Hold the following medications the morning of surgery: Magnesium Oxide (Mag-Ox), 400 MG PO QAM Cholecalciferol (Vitamin D3), 1,000 UNITS PO QAM Insulin Aspart (Novolog), 1 DOSE SQ SLIDING SCALE Calcium Polycarbophil (Fiber Tabs), 1 TAB PO QAM Lactulose (Chronulac), 40 GM PO BID PRN for RN (liquid) - Take the following medications the morning of surgery with a sip of water: Thiamine Hcl (Vitamin B1), 200 MG PO BID Paroxetine (Paroxetine HCl), 10 MG PO QAM Meclizine Hcl (Meclizine Hcl), 1 TAB PO Q6H PRN for Dizziness or Vertigo Nitroglycerin (Nitrostat), 0.4 MG UT PRN Levothyroxine Sodium (Synthroid), 50 MCG PO QAM Formoterol Fumarate (Perforomist), 2 ML INH BID PRN for PRN Carvedilol (Coreg), 3.125 MG PO BID Budesonide (Pulmicort Respules 0.5MG/2ML), 2 ML INH BID PRN for PRN Atorvastatin (Lipitor), 40 MG PO QAM Allopurinol (Allopurinol), 300 MG PO QAM - Take the following medications as scheduled the night before surgery: Thiamine Hcl (Vitamin B1), 200 MG PO BID Tamsulosin Hcl (Flomax), 0.4 MG PO QPM Meclizine Hcl (Meclizine Hcl), 1 TAB PO Q6H PRN for Dizziness or Vertigo Nitroglycerin (Nitrostat), 0.4 MG UT PRN Pantoprazole Sodium (Protonix), 40 MG PO QPM Insulin Glargine (Toujeo Solostar), 20 UNITS INJ HS Insulin Aspart (Novolog), 1 DOSE SQ SLIDING SCALE Gabapentin (Neurontin), 300 MG PO QPM Formoterol Fumarate (Perforomist), 2 ML INH BID PRN for PRN Carvedilol (Coreg), 3.125 MG PO BID Budesonide (Pulmicort Respules 0.5MG/2ML), 2 ML INH BID PRN for PRN Lactulose (Chronulac), 40 GM PO BID PRN for RN (liquid) If you have any questions please call us at [phone] or [phone] or [phone]
[2016-12-26 11:01] LABS: HEMATOCRIT 38.8 % (42-52); MEAN CELL VOLUME 93.9 fL (80-100); MEAN CORPUSCULAR HEMOGLOBIN 31.7 pg (25-34); MEAN CORPUSCULAR HGB CONC 33.8 g/dl (32-36); RED BLOOD COUNT 4.13 M/uL (4.7-6.1); WHITE BLOOD COUNT 7.01 K/uL (4.8-10.8)
[2016-12-26 11:03] LABS: URINE APPEARANCE CLEAR (CLEAR); URINE BILIRUBIN NEG (NEG); URINE COLOR YELLOW; URINE EPITHELIAL CELL AUTO 0-5 /lpf (0-5); URINE NITRITE NEG (NEG); URINE PH 7.5 (4.5-7.5); URINE SPECIFIC GRAVITY 1.019 (1.000-1.030); UROBILINOGEN NEG (NEG)
[2016-12-26 11:15] LABS: MANUAL MICROSCOPIC REQUIRED? NO; REVIEW REQ? NO
[2016-12-26 11:35] LABS: MEAN PLATELET VOLUME 9.6 fL (7.4-10.4); PLATELET COUNT 64 K/uL (130-400)
[2016-12-26 11:40] LABS: BASO % 0.3 %; BASO ABS # 0.02 K/uL (0-0.2); COMPLETE YES; IG% 0.6 %; LYMPH ABS # 1.33 K/uL (1.2-3.4); MONO % 7.8 %; NEUT % 68.3 %; PLT ESTIMATE DECREASED
[2016-12-26 12:41] LABS: BUN/CREATININE RATIO 19.1 (10-20); CALCIUM 9.8 mg/dl (8.5-10.1); CREATININE 1.5 mg/dl (0.60-1.40); POTASSIUM 4.9 mmol/L (3.5-5.1)
[2016-12-26 12:45] LABS: PROSTATE SPECIFIC ANTIGEN 3.16 ng/ml (0.000-4.000)
[~2017-01-09] VITALS: Ht 172.7 cm; Wt 112.1 kg
[~2017-01-09] MED LIST changes: +ALL300 PO; -ASPEC81 PO; +ASPI81TA28 PO; +ATOR-24 PO; +ATROPINE SULFATE 0.1 MG/ML 5ML SYR IV PRN; +BELLADONNA/OPIUM SUPP 60 MG SUPP PR ONE; +CALC625T13 PO; +CARV3.12 PO; +CHOL1CAP57 PO; +CIPR-255 PO; -CRG3125 PO; -CYNI1000 IM; +EpHEDrine SULFATE 50MG/5ML SYR ONE; +FENTANYL CITRATE INJ 50 MCG/1 ML 2 ML VIAL ONE; +FORM1NEB INH; +GABA-113 PO; +GLYCOPYRROLATE INJ 0.2 MG/ML VIAL ONE; +HYDR-3419 PO; -KFL500 PO; +LACT10SO17 PO; -LACT10SO30 PO; +LACTATED RINGER'S 1000ML 1,000 ML IV SCH; -LDDP5 TD; +LEVO50TA PO; +LIDOCAINE HCL 2% 2 ML VIAL (20MG/ML) ONE; +MAGN400T6 PO; +MECL1TAB42 PO; +NEOSTIGMINE METHYLSULFATE 5 MG/5 ML SYR ONE; +NTRGSL/4 UT; +NVLG SQ; -NVLGIPEN SC; +ONDANSETRON INJ 2 MG/ML 2 ML VIAL IV PRN; +ONDANSETRON INJ 2 MG/ML 2 ML VIAL ONE; +PANT40TA PO; +PHEN-775 PO; +PHENAZOPYRIDINE HCL 200 MG TAB PO PRN; +PHENYLEPHRINE 100MCG/ML 5ML SYR ONE; +PLMINSR5 INH; +PROPOFOL IV EMULSION 10 MG/ML 20 ML VIAL IV ONE; +PXL/10 PO; +ROCURONIUM BROMIDE 10 MG/ML 5 ML VIAL IV ONE; +TAMS0.4C38 PO; +THIA100T46 PO; -THM100 PO; +TRAMADOL HCL 50 MG TAB PO PRN; -ULT50X PO; +VITAMIN B12 INJ; -VLTG EXT
[2017-01-09 07:05] VITALS: BP 112/65; PULSE 59; TEMP 36.5; O2SAT 96; Ht 172.7 cm; Wt 112.1 kg
--- NOTE | 2017-01-09 07:14 | History & Physical Bridge Note ---
H&P Re-Evaluation Bridge Note: I have examined the patient, reviewed the History & Physical and in the interval since the performance of the History & Physical I have noted the following changes of clinical significance: No changes noted
[2017-01-09] MEDS: CIPROFLOXACIN / D5W 400 MG IV SCH ×2 (07:29→08:55)
[2017-01-09 07:41] LABS: HEMATOCRIT 34.8 % (42-52); MEAN CELL VOLUME 91.1 fL (80-100); MEAN CORPUSCULAR HEMOGLOBIN 31.7 pg (25-34); RED BLOOD COUNT 3.82 M/uL (4.7-6.1); WHITE BLOOD COUNT 5.01 K/uL (4.8-10.8)
[2017-01-09 08:02] LABS: MEAN CORPUSCULAR HGB CONC 34.8 g/dl (32-36); MEAN PLATELET VOLUME 9.6 fL (7.4-10.4); PLATELET COUNT 90 K/uL (130-400)
--- NOTE | 2017-01-09 09:57 | Discharge Instructions ---
Discharge Instructions Date of Service Jan 09, 2017. Admission Reason for Admission: Benign Prostatic Hyperplasia Discharge Discharge Diagnosis / Problem: BPH s/p GLTURP Discharge Goals Goal(s): Improve function, Improve disease control, Therapeutic intervention Activity Recommendations Activity Limitations: as noted below Lifting Limitations: no more than 25 pounds, gradually increase as tolerated ( over 5-7 days) Exercise/Sports Limitations: rest today, gradually increase as tolerated (over 5-7 days) May Resume Sexual Activity: after two weeks Shower/Bathe: may shower/bathe in 3 days Driving or Machine Use: resume 3 days after discharge . Instructions / Follow-Up Instructions / Follow-Up Badillo to gravity as instructed Outpatient appointments for badillo removal and postop check as planned Discharge Diet Recommended Diet: Regular Diet (good fluid intake) Procedures Procedures Performed: Greenlight Transurethral Resection of Prostate Pending Studies Studies pending at discharge: no Medical Emergencies . Who to Call and When: Medical Emergencies: If at any time you feel your situation is an emergency, please call 911 immediately. . Non-Emergent Contact Non-Emergency issues call your: Urologist Call Non-Emergent contact if: you have a fever, temperature is above 101, your pain is not controlled, your pain is worsening, your pain is unusual for you, your pain is concerning you, you have any medication questions . . "Provider Documentation" section prepared by Jona García. . VTE Core Measure Inpt VTE Proph given/why not?: SCD's [place] Drug Monitoring Program Search Results: patient reviewed within database, see additional documentation (last Rx Aug 2016 - none since)
--- NOTE | 2017-01-09 09:59 | [facility] Post Operative Brief Note ---
Immediate Operative Summary Operative Date Jan 09, 2017. Pre-Operative Diagnosis Benign Prostatic Hyperplasia with Urinary Obstruction Post-Operative Diagnosis Benign Prostatic Hyperplasia with Urinary Obstruction Procedure(s) Performed Greenlight Transurethral Resection of Prostate Surgeon Dr. Edyta García Catering Cook Surgeon(s) none Estimated Blood Loss 0ml Findings Open fossa after completion, 80K J used Specimens none per surgeon Drains 22 fr 10 cc H2O Anesthesia GAET Complication(s) None Disposition Recovery Room / PACU
--- NOTE | 2017-01-09 10:04 | [facility] Operative Report ---
Operative Report Operative Date Jan 09, 2017. Pre-Operative Diagnosis Benign Prostatic Hyperplasia with Urinary Obstruction Post-Operative Diagnosis Benign Prostatic Hyperplasia with Urinary Obstruction Procedure(s) Performed Greenlight Transurethral Resection of Prostate Surgeon Dr. Edyta García Police Communications Dispatcher Surgeon(s) none Estimated Blood Loss 0ml Findings Open fossa after completion, 80K J used Specimens none per surgeon Drains 22 fr 10 cc H2O Anesthesia GAET Complication(s) None Disposition Recovery Room / PACU Indications 76-year-old male with a history of refractory urinary symptoms despite medical therapy for BPH. He is here today for greenlight vaporization of his prostate gland. Previous cystoscopy has demonstrated obstructive prostate growth. Please see H&P for further details. He is covered with IV antibiotics for the procedure and SCDs used for DVT prophylaxis. Description of Procedure Patient was properly identified and brought to the operative suite after identification for appropriate consent of the chart. General anesthesia with endotracheal intubation was initiated and patient was prepped and draped in the standard fashion for this procedure. Full timeout procedure was followed. Greenlight laser resectoscope was introduced into the bladder under direct visualization using a visual obturator. Bladder was surveyed in its entirety including the 70 and 30 lenses. This demonstrated ureteral orifices which were well removed from the bladder neck, mild to moderate trabeculation with no intravesical masses, papillary lesions or calculi. Obstructive prostate gland with an elevated bladder neck was appreciated. No intravesical protrusion of the patient's adenoma was noted. Using a side fire laser fiber at settings between 80 and 100 W circumferential vaporization of the prostate gland was undertaken. Relaxing incisions were made at the 5 and 7 o'clock position to avoid bladder neck contracture in the future and unobstruct the bladder neck. Care was taken to avoid any vaporization distal to the verumontanum. After completion of the case with approximately 80K J of energy prostate was noted to be open with excellent hemostasis and visually unobstructed. Bladder was again checked and ureteral orifices were noted to be free of injury as were the other bladder structures. Bladder was partially distended resectoscope was removed. 22 Maori Briggs catheter was introduced into the bladder with return of clear drainage with 10 mL of sterile water in the balloon. Belladonna and opium suppository was provided for additional postoperative analgesia and anesthesia was reversed. Patient was transferred to the recovery room in stable condition. Prescriptions for Vicodin, Pyridium and ciprofloxacin were provided. Postoperative appointments for a trial of void and postop check were confirmed. Patient was instructed to contact our service should he note any fevers, chills, nausea, vomiting or other significant difficulties in the postoperative period I attest to the content of the Intraoperative Record and any orders documented therein. Any exceptions are noted below.
--- NOTE | 2017-01-09 10:37 | Anesthesiology Progress Note ---
Anesthesia Post Op Note Date & Time Jan 09, 2017 at 10:36 Vital Signs Pain Intensity: 0 Vital Signs Past 12 Hours Date Time Temp Pulse Resp B/P (MAP) Pulse Ox O2 Delivery O2 Flow Rate FiO2 01/09/17 10:16 36.6 57 16 124/70 100 Room Air Mask 01/09/17 10:11 56 11 01/09/17 10:11 56 11 100 01/09/17 10:10 113/80 01/09/17 10:06 53 10 01/09/17 10:06 53 10 100 01/09/17 10:05 50 10 01/09/17 10:05 56 10 116/64 100 01/09/17 10:00 51 11 116/70 100 01/09/17 10:00 51 11 01/09/17 09:55 48 10 01/09/17 09:55 48 10 128/77 100 01/09/17 09:51 125/75 01/09/17 09:50 36.0 50 14 125/75 100 Mask 10 01/09/17 09:50 51 12 01/09/17 09:50 51 12 100 01/09/17 07:05 36.5 59 18 112/65 (81) 96 Room Air Notes Mental Status: alert / awake / arousable, participated in evaluation Pt Amnestic to Procedure: Yes Nausea / Vomiting: adequately controlled Pain: adequately controlled Airway Patency, RR, SpO2: stable & adequate BP & HR: stable & adequate Hydration State: stable & adequate Anesthetic Complications: no major complications apparent
[2017-01-09 10:40] VITALS: BP 98/58; PULSE 50; TEMP 36.5; O2SAT 99
[2017-01-09 11:10] VITALS: BP 97/67; PULSE 52; O2SAT 98
[2017-01-09 11:40] VITALS: BP 112/74; PULSE 50; TEMP 36; O2SAT 99
== END | disposition home or self-care (01) ==
LOC: C.ACU 06:34
PROVIDERS: ATTEND Urology
DX: N40.1 Benign prostatic hyperplasia with lower urinary tract symptoms (principal); N13.8 Other obstructive and reflux uropathy; I35.0 Nonrheumatic aortic (valve) stenosis; I25.10 Atherosclerotic heart disease of native coronary artery without angina pectoris; I12.9 Hypertensive chronic kidney disease with stage 1 through stage 4 chronic kidney disease, or unspecified chronic kidney disease; N18.9 Chronic kidney disease, unspecified; E11.22 Type 2 diabetes mellitus with diabetic chronic kidney disease; E11.49 Type 2 diabetes mellitus with other diabetic neurological complication; E78.5 Hyperlipidemia, unspecified; K74.60 Unspecified cirrhosis of liver; J44.9 Chronic obstructive pulmonary disease, unspecified; K21.9 Gastro-esophageal reflux disease without esophagitis; M10.9 Gout, unspecified; E83.119 Hemochromatosis, unspecified; E72.20 Disorder of urea cycle metabolism, unspecified; E03.9 Hypothyroidism, unspecified; E66.9 Obesity, unspecified; H90.3 Sensorineural hearing loss, bilateral; Z86.73 Personal history of transient ischemic attack (TIA), and cerebral infarction without residual deficits; Z87.891 Personal history of nicotine dependence; Z79.4 Long term (current) use of insulin; Z79.899 Other long term (current) drug therapy

== ENCOUNTER → 2017-01-25 | Outpatient (CLI) | payer OTHER, MEDICARE ==
[~2017-01-25] MED LIST changes: -ATROPINE SULFATE 0.1 MG/ML 5ML SYR IV PRN; -BELLADONNA/OPIUM SUPP 60 MG SUPP PR ONE; -EpHEDrine SULFATE 50MG/5ML SYR ONE; -FENTANYL CITRATE INJ 50 MCG/1 ML 2 ML VIAL ONE; -GLYCOPYRROLATE INJ 0.2 MG/ML VIAL ONE; -LACTATED RINGER'S 1000ML 1,000 ML IV SCH; -LIDOCAINE HCL 2% 2 ML VIAL (20MG/ML) ONE; -NEOSTIGMINE METHYLSULFATE 5 MG/5 ML SYR ONE; -ONDANSETRON INJ 2 MG/ML 2 ML VIAL IV PRN; -ONDANSETRON INJ 2 MG/ML 2 ML VIAL ONE; -PHEN-775 PO; -PHENAZOPYRIDINE HCL 200 MG TAB PO PRN; -PHENYLEPHRINE 100MCG/ML 5ML SYR ONE; -PROPOFOL IV EMULSION 10 MG/ML 20 ML VIAL IV ONE; -ROCURONIUM BROMIDE 10 MG/ML 5 ML VIAL IV ONE; -TRAMADOL HCL 50 MG TAB PO PRN
== END | disposition home or self-care (01) ==
LOC: C.LABSPEC 16:51
PROVIDERS: ATTEND Urology
DX: N41.9 Inflammatory disease of prostate, unspecified (principal); N40.1 Benign prostatic hyperplasia with lower urinary tract symptoms

== ENCOUNTER → 2017-03-08 | Outpatient (CLI) | payer OTHER, MEDICARE | END | disposition home or self-care (01) | LOC: C.LABSPEC 17:05 | PROVIDERS: ATTEND Urology | DX: N39.0 Urinary tract infection, site not specified (principal) ==

== ENCOUNTER → 2017-04-03 | Outpatient (CLI) | payer OTHER, MEDICARE ==
[~2017-04-03] MED LIST changes: +ALBINS/ INH; +ALBU18002 INH; +CYNI1000 PO; +DVN80 PO; +IBUP-103 PO; +INSPMPHMLG SQ; +LACT15SO PO; +MethylPREDNISolone HOME PACK 16 MG TAB PO SCH; +OPTIRAY 320 IV PRN
--- NOTE | 2017-04-03 11:26 | DIAGNOSTIC IMAGING REPORT ---
ABDOMEN AND PELVIS CT WITH AND WITHOUT IV CONTRAST, UROGRAM PROTOCOL CT DOSE: 2051.24 mGycm HISTORY: Kidney stones. Urinary tract infection. Prostatitis. TECHNIQUE: Multiaxial CT images of the abdomen and pelvis were performed both before and after the use of intravenous contrast to evaluate the urinary system. Maximal intensity projection images were performed at the workstation by the radiologist. A dose lowering technique was utilized adhering to the principles of ALARA. COMPARISON STUDY: Abdomen and pelvis CT 11/02/2016. FINDINGS: No renal or ureteral calculi. No hydronephrosis. No suspicious filling defects seen within the bilateral renal collecting systems, ureters, or bladder. Of note, the proximal to mid right ureter and mid left ureter are not opacified but are normal and course and caliber. There is a 1.1 x 1.0 cm nodule within the right lower lobe on image 19 of 461. This demonstrates irregular margins. The left lung base is clear. No suspicious lytic or blastic osseous lesions. Old mild compression deformity at L1. Hepatic cirrhosis and splenomegaly persist. Cholecystectomy. The pancreas remains unremarkable. An elongated periportal lymph node has slightly increased in size. This measures up to 1.3 cm in short axis diameter. Normal pancreas and adrenal glands. A few bilateral renal hypodense lesions. The majorities are subcentimeter in size and too small to characterize. Dominant hypodense lesion within the left kidney measures 1.4 cm. This is difficult to characterize due to the artifact but favors a cyst. Multiple large abdominal varices. The prostate gland is mildly enlarged. Prior sigmoid anastomosis. Colonic diverticulosis. No bowel wall thickening or obstruction. Normal appendix. Anterior abdominal wall incision/scarring. Stable asymmetric prominence/thickening of the lower right rectus abdominis muscle. IMPRESSION: 1. No renal or ureteral stones. No hydronephrosis. 2. No suspicious filling defects seen within the opacified bilateral renal collecting systems, ureters, or bladder. 3. A 1.1 x 1.0 cm nodule within the right lower lobe which demonstrates irregular margins. This is suspicious for a primary bronchogenic malignancy. PET CT is recommended for further evaluation. 4. Hepatic cirrhosis and spontaneity persist. 5. Elongated/enlarged periportal lymph node which has slightly increased in size. This is of uncertain clinical significance ankle be related to the long-standing cirrhosis. 6. These findings were called/faxed to the referring physician's office following dictation Electronically signed by: Baldemar Temple M.D. 04/03/2017 11:25 AM Dictated Date/Time: 04/03/2017 11:07 AM
== END | disposition home or self-care (01) ==
LOC: C.CTS 09:44
PROVIDERS: ATTEND Urology
DX: N20.0 Calculus of kidney (principal); N39.0 Urinary tract infection, site not specified; N40.1 Benign prostatic hyperplasia with lower urinary tract symptoms; N41.9 Inflammatory disease of prostate, unspecified; R91.1 Solitary pulmonary nodule; K74.60 Unspecified cirrhosis of liver; R59.0 Localized enlarged lymph nodes

== ENCOUNTER 2017-04-06 14:54 | Inpatient (IN) | payer OTHER, MEDICARE ==
[~2017-04-06] VITALS: Ht 175.3 cm; Wt 115.4 kg
[~2017-04-06 14:54] MED LIST changes: -ALBINS/ INH; -ALBU18002 INH; -ATOR-24 PO; -CYNI1000 PO; -DVN80 PO; -FORM1NEB INH; -IBUP-103 PO; -INSPMPHMLG SQ; -LACT15SO PO; -MECL1TAB42 PO; -MethylPREDNISolone HOME PACK 16 MG TAB PO SCH; -OPTIRAY 320 IV PRN; -PANT40TA PO; -PLMINSR5 INH; -PXL/10 PO; -TAMS0.4C38 PO
[2017-04-06] MEDS ORDERED: ALBUT/IPRATROP 3MG/0.5MG NEB 3 ML VIAL INH STA ×2 (15:13→16:50)
--- NOTE | 2017-04-06 15:19 | EMERGENCY ROOM VISIT NOTE ---
History First contact with patient: 15:02 Chief Complaint: RESPIRATORY PROBLEMS Stated Complaint: TROUBLE BREATHING, HIGH BP History of Present Illness The patient is a 76 year old male who presents to the Emergency Room via private vehicle accompanied by female with complaints of " trouble breathing, high blood pressure". The patient states that he has been seeing Dr. García of urology for his prostate. He had a CT scan performed of the abdomen and pelvis on Monday. He states that he was notified that he is to have one tomorrow of his lungs. He states that he has been wheezing over the past few days but today notes that the shortness of breath acutely worsened and there wheezes are now worse. There is also a heaviness on his chest that he notes began around 10 or 11 AM this morning. It is not worse with exertion (chest pain). He used his nebulizer at home without relief. He has asthma and COPD. He denies any history of heart attack or blood clots. He states that because he is allergic to contrast dye utilized and the CAT scan he is placed upon a Medrol Dosepak. Dyspnea is worse with exertion. Review of Systems A complete 10-point Review of Systems was discussed with the patient, with pertinent positives and negatives listed in the History of Present Illness. All remaining Review of Systems questions can be considered negative unless otherwise specified. Past Medical/Surgical History Medical Problems: (1) Acute dyspnea (2) Asthma (3) BPH (benign prostatic hyperplasia) (4) Bradycardia (5) Calcaneal spur (6) Carpal tunnel syndrome (7) Clostridium difficile diarrhea (8) COPD (chronic obstructive pulmonary disease) (9) CVA (cerebral vascular accident) (10) Diabetes (11) Gout (12) Hepatic encephalopathy (13) Hypertension (14) Liver disease (15) Right lower lobe lung mass (16) Right ureteral calculus Family History Cancer FHx: hemochromatosis Heart disease Hypertension Social History Smoking Status: Former Smoker Alcohol Use: none Drug Use: none Marital Status: Housing Status: lives alone Occupation Status: retired Current/Historical Medications Scheduled Allopurinol (Allopurinol), 300 MG PO QAM Aspirin (Aspirin Ec), 81 MG PO QAM Atorvastatin (Lipitor), 40 MG PO QAM Calcium Polycarbophil (Fiber Tabs), 1 TAB PO QAM Carvedilol (Coreg), 3.125 MG PO BID Cholecalciferol (Vitamin D3), 2,000 UNITS PO QAM Cyanocobalamin (Cyanocobalamin), 1 ML PO MONTHLY Gabapentin (Neurontin), 300 MG PO QPM Insulin Glargine (Toujeo Solostar), 30 UNITS INJ HS Insulin Human Lispro (Humalog), 10 UNITS SQ TIDM Lactulose (Chronulac), 40 GM PO DAILY Levothyroxine Sodium (Synthroid), 50 MCG PO QAM Magnesium Oxide (Mag-Ox), 400 MG PO BID Nitroglycerin (Nitrostat), 0.4 MG UT PRN Pantoprazole Sodium (Protonix), 40 MG PO BID Paroxetine (Paroxetine HCl), 10 MG PO QAM Tamsulosin Hcl (Flomax), 0.4 MG PO QPM Thiamine Hcl (Vitamin B1), 200 MG PO BID Valsartan (Diovan), 80 MG PO DAILY Scheduled PRN Albuterol Sulf (Proventil 0.083% 2.5MG/3ML), 2.5 MG INH Q6 PRN for SOB/Wheezing Albuterol Sulfate (Proair Respiclick), 2 PUFFS INH Q6 PRN for SOB/Wheezing Budesonide (Pulmicort Respules 0.5MG/2ML), 2 ML INH BID PRN for PRN Formoterol Fumarate (Perforomist), 2 ML INH BID PRN for PRN Ibuprofen Tab (Advil), 400 MG PO Q6 PRN for Headache or Pain Meclizine Hcl (Meclizine Hcl), 1 TAB PO Q6H PRN for Dizziness or Vertigo Physical Exam Vital Signs Date Time Temp Pulse Resp B/P (MAP) Pulse Ox O2 Delivery O2 Flow Rate FiO2 04/06/17 18:09 65 18 157/88 100 Room Air 04/06/17 17:40 58 16 152/83 100 Room Air 04/06/17 17:03 58 20 99 Room Air 04/06/17 16:59 99 Room Air 04/06/17 16:38 55 18 146/97 99 Room Air 04/06/17 15:59 58 04/06/17 15:50 96 Room Air 04/06/17 14:56 36.8 65 22 148/101 99 Room Air Physical Exam VITAL SIGNS - Vital signs and nursing notes were reviewed. Stable. Hypertensive. GENERAL -76-year-old male appearing his stated age who is in no acute distress. Communicates well with provider and answers questions appropriately. SKIN - Without rashes. No petechial rashes. HEAD - NC/AT. EYES - PERRL with EOMI bilaterally. Sclera anicteric. EARS - No deformities of external structures noted on gross examination bilaterally. Hearing aids in place. NOSE - Midline and without cyanosis. No epistaxis or purulent drainage noted. MOUTH/OROPHARYNX - Without perioral cyanosis. LUNGS - Chest wall symmetric without accessory muscle use, intercostals retractions, or central cyanosis. Normal vesicular breath sounds CTA B/L. No wheezes, rales, or rhonchi appreciated. CARDIAC - RRR with S1/S2. No murmur, rubs, or gallops appreciated. ABDOMEN - Abdominal contour normal without pulsations or visible masses. BS normoactive all four quadrants. No tenderness. Well-healed surgical scars overlying the abdomen noted. No palpable masses, hepatosplenomegaly, or ascites noted. EXTREMITIES - No clubbing or peripheral cyanosis. No pretibial edema present. + 5/5 strength noted in UE/LE bilaterally. NEUROLOGIC - Cranial nerves II through XII grossly intact. Sensory intact to light touch throughout. PSYCH - A&O, and cooperates fully with examiner. Pt is very pleasant and interacts well with examiner. Medical Decision & Procedures ER Provider Diagnostic Interpretation: CHEST ONE VIEW PORTABLE HISTORY: 76 years-old Male Cough, dyspnea acute cough and dyspnea COMPARISON: Chest radiograph 11/02/2016 TECHNIQUE: Portable upright AP view of the chest FINDINGS: Cardiac silhouette is moderately enlarged. Pulmonary vascular congestion without overt pulmonary edema. There is no pneumothorax, pleural effusion, or focal airspace consolidation. Degenerative changes involve the shoulders and spine. IMPRESSION: Cardiomegaly and mild pulmonary vascular congestion. The above report was generated using voice recognition software. It may contain grammatical, syntax or spelling errors. Electronically signed by: Darius Ramirez M.D. 04/06/2017 3:45 PM Dictated Date/Time: 04/06/2017 3:44 PM Laboratory Results 04/06/17 15:55 Red Blood Count 4.06, Mean Corpuscular Volume 92.4, Mean Corpuscular Hemoglobin 31.3, Mean Corpuscular Hemoglobin Concent 33.9, Mean Platelet Volume 9.8, Neutrophils (%) (Auto) 56.5, Lymphocytes (%) (Auto) 29.3, Monocytes (%) (Auto) 8.2, Eosinophils (%) (Auto) 4.6, Basophils (%) (Auto) 0.6, Neutrophils # (Auto) 2.68, Lymphocytes # (Auto) 1.39, Monocytes # (Auto) 0.39, Eosinophils # (Auto) 0.22, Basophils # (Auto) 0.03 04/06/17 15:55 Test 04/06/17 15:55 White Blood Count 4.75 K/uL (4.8-10.8) Red Blood Count 4.06 M/uL (4.7-6.1) Hemoglobin 12.7 g/dL (14.0-18.0) Hematocrit 37.5 % (42-52) Mean Corpuscular Volume 92.4 fL (80-100) Mean Corpuscular Hemoglobin 31.3 pg (25-34) Mean Corpuscular Hemoglobin Concent 33.9 g/dl (32-36) Platelet Count 84 K/uL (130-400) Mean Platelet Volume 9.8 fL (7.4-10.4) Neutrophils (%) (Auto) 56.5 % Lymphocytes (%) (Auto) 29.3 % Monocytes (%) (Auto) 8.2 % Eosinophils (%) (Auto) 4.6 % Basophils (%) (Auto) 0.6 % Neutrophils # (Auto) 2.68 K/uL (1.4-6.5) Lymphocytes # (Auto) 1.39 K/uL (1.2-3.4) Monocytes # (Auto) 0.39 K/uL (0.11-0.59) Eosinophils # (Auto) 0.22 K/uL (0-0.5) Basophils # (Auto) 0.03 K/uL (0-0.2) RDW Standard Deviation 51.9 fL (36.4-46.3) RDW Coefficient of Variation 15.2 % (11.5-14.5) Immature Granulocyte % (Auto) 0.8 % Immature Granulocyte # (Auto) 0.04 K/uL (0.00-0.02) Prothrombin Time 11.5 SECONDS (9.0-12.0) Prothromb Time International Ratio 1.1 (0.9-1.1) Activated Partial Thromboplast Time 27.9 SECONDS (21.0-31.0) Partial Thromboplastin Ratio 1.1 Anion Gap 9.0 mmol/L (3-11) Est Creatinine Clear Calc Drug Dose 61.7 ml/min Estimated GFR () 61.3 Estimated GFR (Non- 52.9 BUN/Creatinine Ratio 16.8 (10-20) Calcium Level 9.6 mg/dl (8.5-10.1) Total Bilirubin 0.7 mg/dl (0.2-1) Aspartate Amino Transf (AST/SGOT) 23 U/L (15-37) Alanine Aminotransferase (ALT/SGPT) 27 U/L (12-78) Alkaline Phosphatase 66 U/L (45-117) Troponin I < 0.015 ng/ml (0-0.045) Pro-B-Type Natriuretic Peptide 233 pg/ml (0-900) Total Protein 6.9 gm/dl (6.4-8.2) Albumin 3.5 gm/dl (3.4-5.0) Globulin 3.4 gm/dl (2.5-4.0) Albumin/Globulin Ratio 1.0 (0.9-2) Thyroid Stimulating Hormone (TSH) 2.360 uIu/ml (0.300-4.500) Medications Administered Medications (Trade) Dose Ordered Sig/Ronna Route Start Time Stop Time Status Last Admin Dose Admin Albuterol/ Ipratropium (Duoneb) 3 ml NOW STAT INH 04/06/17 15:13 04/06/17 15:15 DC 04/06/17 16:02 3 ML Albuterol/ Ipratropium (Duoneb) 12 ml ONE STAT INH 04/06/17 16:50 04/06/17 16:51 DC 04/06/17 17:03 12 ML Medical Decision Patient was seen and evaluated as above. He presents to us today with shortness of breath as well as elevated blood pressure. He has a history of asthma and COPD. He uses nebulizer at home without relief. He was given a 15 minute DuoNeb here followed by hour-long and was still quite dyspneic, and had audible wheezes. He seems to prefer to be sitting upright so that he can breathe better. Chest x-ray negative for weight emergent process. Patient's CBC reveals anemia with hemoglobin of 12.7. No leukocytosis. Coags normal. Patient metabolic panel reveals BUN elevated at 22, creatinine 1.3. No evidence of liver failure. Troponin negative. ENT normal. TSH normal. At this time I believe the patient should be admitted for further evaluation and management secondary to his dyspnea and suspected COPD exacerbation. He is scheduled for a CT of the chest in the near future what appears to be tomorrow. He has to be premedicated. I discussed the case with the hospitalist who agreed to evaluate the patient. Please refer to further documentation regarding his stay. In evaluation treatment this patient the following differential diagnoses were entertained: OR, PE, COPD exacerbation. Pneumonia, heart failure, among others. Impression Primary Impression: Acute dyspnea Additional Impression: Anemia Departure Information Dispostion Admitted as an inpatient Condition FAIR Referrals No Doctor, Assigned (PCP) Patient Instructions [facility] Problem Qualifiers
[2017-04-06] MEDS ORDERED: PANT40TA PO (15:24)
[2017-04-06] MEDS ORDERED: PXL/10 PO (15:24)
--- NOTE | 2017-04-06 15:41 | EMERGENCY ROOM VISIT NOTE ---
ED Visit Note First contact with patient: 15:02 The patient was seen and examined with Brigido Plunkett PA-C. I agree with the history, physical and findings. Please see the note for disposition and details.
--- NOTE | 2017-04-06 15:47 | DIAGNOSTIC IMAGING REPORT ---
CHEST ONE VIEW PORTABLE HISTORY: 76 years-old Male Cough, dyspnea acute cough and dyspnea COMPARISON: Chest radiograph 11/02/2016 TECHNIQUE: Portable upright AP view of the chest FINDINGS: Cardiac silhouette is moderately enlarged. Pulmonary vascular congestion without overt pulmonary edema. There is no pneumothorax, pleural effusion, or focal airspace consolidation. Degenerative changes involve the shoulders and spine. IMPRESSION: Cardiomegaly and mild pulmonary vascular congestion. The above report was generated using voice recognition software. It may contain grammatical, syntax or spelling errors. Electronically signed by: Darius Ramirez M.D. 04/06/2017 3:45 PM Dictated Date/Time: 04/06/2017 3:44 PM
[2017-04-06] MEDS ORDERED: ALBINS/ INH (16:06)
[2017-04-06] MEDS ORDERED: CYNI1000 PO (16:06)
[2017-04-06] MEDS ORDERED: ALBU18002 INH (16:06)
[2017-04-06] MEDS ORDERED: DVN80 PO (16:06)
[2017-04-06] MEDS ORDERED: INSPMPHMLG SQ (16:06)
[2017-04-06] MEDS ORDERED: LACT15SO PO (16:06)
[2017-04-06] MEDS ORDERED: IBUP-103 PO (16:10)
[2017-04-06 16:22] LABS: HEMATOCRIT 37.5 % (42-52); MEAN CELL VOLUME 92.4 fL (80-100); MEAN CORPUSCULAR HEMOGLOBIN 31.3 pg (25-34); MEAN CORPUSCULAR HGB CONC 33.9 g/dl (32-36); RED BLOOD COUNT 4.06 M/uL (4.7-6.1); WHITE BLOOD COUNT 4.75 K/uL (4.8-10.8)
[2017-04-06 16:25] LABS: BASO % 0.6 %; BASO ABS # 0.03 K/uL (0-0.2); COMPLETE YES; EOS % 4.6 %; IG% 0.8 %; LYMPH % 29.3 %; LYMPH ABS # 1.39 K/uL (1.2-3.4); MEAN PLATELET VOLUME 9.8 fL (7.4-10.4); MONO % 8.2 %; NEUT % 56.5 %; PLATELET COUNT 84 K/uL (130-400)
[2017-04-06] MEDS ORDERED: PLMINSR5 INH (16:37)
[2017-04-06] MEDS ORDERED: FORM1NEB INH (16:37)
[2017-04-06 16:38] LABS: INR 1.1 (0.9-1.1); PARTIAL THROMBOPLASTIN RATIO 1.1; PROTHROMBIN TIME (PATIENT) 11.5 SECONDS (9.0-12.0)
[2017-04-06 17:03] VITALS: PULSE 58; O2SAT 99
[2017-04-06 17:09] LABS: SODIUM 145 mmol/L (136-145)
[2017-04-06 17:13] LABS: AST/SGOT 23 U/L (15-37)
[2017-04-06 17:15] LABS: ALKALINE PHOSPHATASE 66 U/L (45-117); ALT/SGPT 27 U/L (12-78); BLOOD UREA NITROGEN 22 mg/dl (7-18); BUN/CREATININE RATIO 16.8 (10-20); CALCIUM 9.6 mg/dl (8.5-10.1); CARBON DIOXIDE 24 mmol/L (21-32); CHLORIDE 112 mmol/L (98-107); CREATININE 1.31 mg/dl (0.60-1.40); GLUCOSE 101 mg/dl (70-99)
[2017-04-06] MEDS ORDERED: CONSULT PHARMACY STA (18:02)
[2017-04-06] MEDS ORDERED: TAMS0.4C38 PO (18:27)
[2017-04-06] MEDS ORDERED: ACETAMINOPHEN 325 MG TAB PO PRN (18:30)
[2017-04-06] MEDS ORDERED: ENOXAPARIN 40 MG/0.4 ML SYR SC SCH (18:30)
[2017-04-06] MEDS ORDERED: ONDANSETRON INJ 2 MG/ML 2 ML VIAL IV PRN (18:30)
[2017-04-06] MEDS ORDERED: NITROGLYCERIN 0.4 MG SL PER TAB CHARGE SL PRN (18:30)
[2017-04-06] MEDS ORDERED: ALUMINUM/MAGNESIUM/SIMETH (MAALOX MAX) 30 ML UDC PO PRN (18:30)
[2017-04-06] MEDS ORDERED: ALBUT/IPRATROP 3MG/0.5MG NEB 3 ML VIAL INH PRN (18:45)
[2017-04-06] MEDS ORDERED: OPTIRAY 320 IV PRN (18:45)
--- NOTE | 2017-04-06 18:52 | History and Physical ---
History & Physical Date & Time of Service: Apr 06, 2017 at 18:44 Chief Complaint: Trouble Breathing, High Bp Primary Care Physician: Domo Alanis D.O. History of Present Illness Patient presents with significant shortness of breath he does have a history of COPD he's been having operative the cough for the last few days. The patient typically sees his healthcare to [facility] but does see Dr. García for prostate health. Most recently Dr. García ordered a CT scan of his abdomen and pelvis this revealed a concern for right lower lobe 1 cm nodule. The patient does have an IV dye allergy was premedicated. I queried the patient whether he fills the IV dye medium short of breath he does not feel that to be the case the patient's is very dyspneic using accessory muscles to breathe speaking in short sentences despite having significant nebulized treatments in the ER the patient no resolution and is recommended for admission. The patient' s daughters at the bedside she was informed of the CT findings and we're going to try to pursue an outpatient CT for his chest which will now do as an inpatient once he is appropriately pretreated for his IV dye and his palmar status improves to the point where he can lay flat the patient denies any other changes in his health he is a diabetic he states his blood sugars have been good of late he is also a cirrhotic and he says he's been taking his lactulose and has a not in any challenges with his ammonia in the recent months Past Medical/Surgical History Medical Problems: (1) Asthma Status: Chronic (2) Calcaneal spur Status: Resolved (3) Carpal tunnel syndrome Status: Resolved (4) COPD (chronic obstructive pulmonary disease) Status: Chronic (5) CVA (cerebral vascular accident) he does have some changes in memory Status: Resolved (6) Gout Status: Resolved (7) Hypertension Status: Chronic (8) Liver disease he feels liver disease is from a previous history of alcoholism Status: Chronic Family History Cancer FHx: hemochromatosis Heart disease Hypertension Social History Smoking Status: Former Smoker Drug Use: none Marital Status: Housing status: lives alone Occupational Status: retired Multi-Drug Resistant Organisms History of MDRO: No Allergies Coded Allergies: Meperidine (Verified Allergy, Severe, ANAPHYLAXIS, 01/09/17) Iodinated Diagnostic Agents (Verified Allergy, Intermediate, HIVES, ) Oxycodone (Verified Allergy, Intermediate, SHORTNESS OF BREATH, 01/09/17) wheezing ??? Dobutamine (Verified Allergy, Unknown, abd pain, 01/09/17) Perflutren (Verified Allergy, Unknown, abd pain, 01/09/17) Home Medications Scheduled Allopurinol (Allopurinol), 300 MG PO QAM Aspirin (Aspirin Ec), 81 MG PO QAM Atorvastatin (Lipitor), 40 MG PO QAM Calcium Polycarbophil (Fiber Tabs), 1 TAB PO QAM Carvedilol (Coreg), 3.125 MG PO BID Cholecalciferol (Vitamin D3), 2,000 UNITS PO QAM Cyanocobalamin (Cyanocobalamin), 1 ML PO MONTHLY Gabapentin (Neurontin), 300 MG PO QPM Insulin Glargine (Toujeo Solostar), 30 UNITS INJ HS Insulin Human Lispro (Humalog), 10 UNITS SQ TIDM Lactulose (Chronulac), 40 GM PO DAILY Levothyroxine Sodium (Synthroid), 50 MCG PO QAM Magnesium Oxide (Mag-Ox), 400 MG PO BID Nitroglycerin (Nitrostat), 0.4 MG UT PRN Pantoprazole Sodium (Protonix), 40 MG PO BID Paroxetine (Paroxetine HCl), 10 MG PO QAM Tamsulosin Hcl (Flomax), 0.4 MG PO QPM Thiamine Hcl (Vitamin B1), 200 MG PO BID Valsartan (Diovan), 80 MG PO DAILY Scheduled PRN Albuterol Sulf (Proventil 0.083% 2.5MG/3ML), 2.5 MG INH Q6 PRN for SOB/Wheezing Albuterol Sulfate (Proair Respiclick), 2 PUFFS INH Q6 PRN for SOB/Wheezing Budesonide (Pulmicort Respules 0.5MG/2ML), 2 ML INH BID PRN for PRN Formoterol Fumarate (Perforomist), 2 ML INH BID PRN for PRN Ibuprofen Tab (Advil), 400 MG PO Q6 PRN for Headache or Pain Meclizine Hcl (Meclizine Hcl), 1 TAB PO Q6H PRN for Dizziness or Vertigo Review of Systems ROS: well nourished well developed patient in mild to moderate distress No double vision blurry vision No problems with speech or swallowing No palpitations, chest pain or pressure Marked dyspnea difficulty catching breath difficulty speaking in full sentences No abdominal pain nausea vomiting diarrhea changes in appetite or weight No burning urine urine frequency or changes in color he does have some frequent nocturia No focal joint pain or muscle pain No skin rashes or oral lesions No unusual bruising or bleeding No focused back pain or numbness or loss of strength Mild changes in memory or confusion since his preceding stroke Physical Exam Vital Signs Date Time Temp Pulse Resp B/P (MAP) Pulse Ox O2 Delivery O2 Flow Rate FiO2 04/06/17 18:09 65 18 157/88 100 Room Air 04/06/17 17:40 58 16 152/83 100 Room Air 04/06/17 17:03 58 20 99 Room Air 04/06/17 16:59 99 Room Air 04/06/17 16:38 55 18 146/97 99 Room Air 04/06/17 15:59 58 04/06/17 15:50 96 Room Air 04/06/17 14:56 36.8 65 22 148/101 99 Room Air General Appearance: + moderate distress, + obese Head: normocephalic, atraumatic Eyes: PERRL, EOMI Neck: supple, no JVD Respiratory/Chest: chest non-tender, lungs clear Cardiovascular: regular rate, rhythm, normal peripheral pulses Abdomen/GI: normal bowel sounds, non tender, soft Back: no CVA tenderness, no muscle spasm Extremities/Musculoskelatal: no pedal edema, normal range of motion Neurologic/Psych: alert, oriented x 3 Diagnostics Laboratory Results Results Past 24 Hours Test 04/06/17 15:55 Range/Units White Blood Count 4.75 4.8-10.8 K/uL Red Blood Count 4.06 4.7-6.1 M/uL Hemoglobin 12.7 14.0-18.0 g/dL Hematocrit 37.5 42-52 % Mean Corpuscular Volume 92.4 80-100 fL Mean Corpuscular Hemoglobin 31.3 25-34 pg Mean Corpuscular Hemoglobin Concent 33.9 32-36 g/dl Platelet Count 84 130-400 K/uL Mean Platelet Volume 9.8 7.4-10.4 fL Neutrophils (%) (Auto) 56.5 % Lymphocytes (%) (Auto) 29.3 % Monocytes (%) (Auto) 8.2 % Eosinophils (%) (Auto) 4.6 % Basophils (%) (Auto) 0.6 % Neutrophils # (Auto) 2.68 1.4-6.5 K/uL Lymphocytes # (Auto) 1.39 1.2-3.4 K/uL Monocytes # (Auto) 0.39 0.11-0.59 K/uL Eosinophils # (Auto) 0.22 0-0.5 K/uL Basophils # (Auto) 0.03 0-0.2 K/uL RDW Standard Deviation 51.9 36.4-46.3 fL RDW Coefficient of Variation 15.2 11.5-14.5 % Immature Granulocyte % (Auto) 0.8 % Immature Granulocyte # (Auto) 0.04 0.00-0.02 K/uL Prothrombin Time 11.5 9.0-12.0 SECONDS Prothromb Time International Ratio 1.1 0.9-1.1 Activated Partial Thromboplast Time 27.9 21.0-31.0 SECONDS Partial Thromboplastin Ratio 1.1 Sodium Level 145 136-145 mmol/L Potassium Level 4.0 3.5-5.1 mmol/L Chloride Level 112 98-107 mmol/L Carbon Dioxide Level 24 21-32 mmol/L Anion Gap 9.0 3-11 mmol/L Blood Urea Nitrogen 22 7-18 mg/dl Creatinine 1.31 0.60-1.40 mg/dl Est Creatinine Clear Calc Drug Dose 61.7 ml/min Estimated GFR () 61.3 Estimated GFR (Non- 52.9 BUN/Creatinine Ratio 16.8 10-20 Random Glucose 101 70-99 mg/dl Calcium Level 9.6 8.5-10.1 mg/dl Total Bilirubin 0.7 0.2-1 mg/dl Aspartate Amino Transf (AST/SGOT) 23 15-37 U/L Alanine Aminotransferase (ALT/SGPT) 27 12-78 U/L Alkaline Phosphatase 66 45-117 U/L Troponin I < 0.015 0-0.045 ng/ml Pro-B-Type Natriuretic Peptide 233 0-900 pg/ml Total Protein 6.9 6.4-8.2 gm/dl Albumin 3.5 3.4-5.0 gm/dl Globulin 3.4 2.5-4.0 gm/dl Albumin/Globulin Ratio 1.0 0.9-2 Thyroid Stimulating Hormone (TSH) 2.360 0.300-4.500 uIu/ml other (mild pulmonary vascular congestion) Normal EKG (status bradycardia and no acute changes) Impression Assessment and Plan 76-year-old male with acute dyspnea likely COPD exacerbation For COPD exacerbation we'll use albuterol and ipratropium nebulized scheduled and when necessary formoterol and prednisone oral along his with oral azithromycin low pulmonary consultation if he does not improve. As there was concern of a pulmonary nodule will perform a CTA for both this and look for PE however he needs premedicated due to an IV dye allergy we'll change the time to appropriate premedicated mental hopefully improve his palmar status we can lay flat without discomfort Insulin requiring diabetes the steroids will likely make his diabetes worse we' ll maintain him on a long-acting glargine insulin he usually takes tojeo substitute Lantus and continue sliding scale Cirrhosis and liver disease patient maintain his lactulose he was on Xifaxan in the past but states he's been off of that Regarding his CVA and hypertension maintain his statin and a to daron is probably beta daron this time will hold his aspirin however in case he needs any interventional procedure given his lung disease DVT prevention will be heparin as it can be held if intervention is required The patient and his daughter both confirm he is DO NOT RESUSCITATE VTE Prophylaxis VTE Risk Assessment Done? Y/N: Yes Risk Level: Moderate
[2017-04-06] MEDS ORDERED: GLUCOSE 10 TABS/TUBE PO PRN (19:30)
[2017-04-06] MEDS ORDERED: DEXTROSE 50% 50 ML SYR IV PRN (19:30)
[2017-04-06] MEDS ORDERED: GLUCOSE 40% GEL 15 GM TUBE PO PRN (19:30)
[2017-04-06] MEDS ORDERED: GLUCAGON FOR INJ 1 MG VIAL SQ PRN (19:30)
[2017-04-06] MEDS ORDERED: TRAMADOL HCL 50 MG TAB PO PRN (20:15)
[2017-04-06 20:21] VITALS: BP 162/85; PULSE 64; TEMP 36.7; O2SAT 98
[2017-04-06] MEDS: FORMOTEROL FUMA NEBULIZER SOLN 20 MCG/2 ML VIAL INH SCH (20:45)
[2017-04-06 20:48] VITALS: PULSE 68; O2SAT 98; BMI 37.7
[2017-04-06 20:53] LABS: URINE APPEARANCE CLEAR (CLEAR); URINE BILIRUBIN NEG (NEG); URINE COLOR YELLOW; URINE EPITHELIAL CELL AUTO 0-5 /lpf (0-5); URINE NITRITE POS (NEG); URINE SPECIFIC GRAVITY 1.023 (1.000-1.030); UROBILINOGEN NEG (NEG); ZZUR CULT IF INDIC CLEAN CATCH YES
[2017-04-06 20:56] LABS: MANUAL MICROSCOPIC REQUIRED? NO; REVIEW REQ? NO
[2017-04-06] MEDS ORDERED: FORMOTEROL FUMA NEBULIZER SOLN 20 MCG/2 ML VIAL INH SCH (21:00)
[2017-04-06] MEDS: GABAPENTIN 300 MG CAP PO SCH (22:26)
[2017-04-06] MEDS: PANTOprazole SOD 40 MG TAB PO SCH (22:26)
[2017-04-06] MEDS: TAMSULOSIN HCL 0.4 MG CAP PO SCH (22:26)
[2017-04-06] MEDS: METHYLPREDNISOLONE 16 MG PO SCH (22:27)
[2017-04-06 22:28] VITALS: BP 133/78; PULSE 54; O2SAT 96
[2017-04-06] MEDS: INSULIN ASPART 100 UNITS/ML 3 ML PEN SC SCH (22:30)
[2017-04-06] MEDS: CARVEDILOL 3.125 MG TAB PO SCH (22:30)
[2017-04-06] MEDS: INSULIN GLARGINE SOLOSTAR 100 UNITS/ML 3 ML PEN SC SCH (22:32)
[2017-04-06] MEDS: HEPARIN SOD 5000 UNIT/0.5 ML CARP SQ SCH (22:33)
[2017-04-06] MEDS ORDERED: ATOR-24 PO (23:01)
[2017-04-06] MEDS ORDERED: MECL1TAB42 PO (23:01)
[2017-04-06 23:14] VITALS: PULSE 58; O2SAT 97
[2017-04-06] MEDS: ALBUT/IPRATROP 3MG/0.5MG NEB 3 ML VIAL INH SCH (23:14)
[2017-04-07] VITALS (15 sets, daily range): BP systolic 112–187; BP diastolic 63–89; PULSE 54–74; TEMP 36.4–36.7; O2SAT 96–100; Ht 175.3 cm; Wt 115.4 kg
[2017-04-07] MEDS ORDERED: NURSING DECISION MEDICATION ORDER SCH (01:45)
[2017-04-07] MEDS ORDERED: COUGH DROP (SUGAR FREE) LOZ 24 LOZ/1 BOX PO PRN (02:15)
[2017-04-07] MEDS: ALBUT/IPRATROP 3MG/0.5MG NEB 3 ML VIAL INH SCH ×6 (02:59→23:12)
[2017-04-07] MEDS: LEVOTHYROXINE 50 MCG TAB PO SCH (05:47)
[2017-04-07 05:54] LABS: HEMATOCRIT 35.9 % (42-52); MEAN CELL VOLUME 92.1 fL (80-100); MEAN CORPUSCULAR HGB CONC 33.7 g/dl (32-36)
[2017-04-07 05:59] LABS: MEAN PLATELET VOLUME 9.8 fL (7.4-10.4); PLATELET COUNT 65 K/uL (130-400)
[2017-04-07 06:12] LABS: ESTIMATED AVERAGE GLUCOSE 126 mg/dl; HA1C FLAG Normal (Normal)
[2017-04-07 06:25] LABS: BUN/CREATININE RATIO 18.4 (10-20); CALCIUM 9.3 mg/dl (8.5-10.1); CREATININE 1.34 mg/dl (0.60-1.40); MAGNESIUM 1.5 mg/dl (1.8-2.4); POTASSIUM 4.1 mmol/L (3.5-5.1)
[2017-04-07] MEDS: FORMOTEROL FUMA NEBULIZER SOLN 20 MCG/2 ML VIAL INH SCH ×2 (07:02→19:12)
[2017-04-07] MEDS: ALLOPURINOL 300 MG TAB PO SCH (07:57)
[2017-04-07] MEDS: PANTOprazole SOD 40 MG TAB PO SCH ×2 (07:57→21:09)
[2017-04-07] MEDS: ATORVASTATIN 40 MG TAB PO SCH (07:57)
[2017-04-07] MEDS: PAROXETINE 20 MG TAB PO SCH (07:58)
[2017-04-07] MEDS: CARVEDILOL 3.125 MG TAB PO SCH ×2 (07:58→21:00)
[2017-04-07] MEDS: VALSARTAN 80 MG TAB PO SCH (07:58)
[2017-04-07] MEDS: AZITHROMYCIN 250 MG TAB PO SCH (07:58)
[2017-04-07] MEDS: METHYLPREDNISOLONE 16 MG PO SCH (07:59)
[2017-04-07] MEDS: INSULIN ASPART 100 UNITS/ML 3 ML PEN SC SCH ×4 (08:05→21:14)
[2017-04-07] MEDS: HEPARIN SOD 5000 UNIT/0.5 ML CARP SQ SCH ×2 (08:06→21:15)
[2017-04-07] MEDS: INSULIN GLARGINE SOLOSTAR 100 UNITS/ML 3 ML PEN SC SCH (08:06)
[2017-04-07] MEDS ORDERED: MAGNESIUM SULFATE 1GM / D5W 1 GM in PREMIXED IN D5W 100 ML IV ONE (09:00)
[2017-04-07] MEDS ORDERED: LACTULOSE SYRUP 20 GM/30 ML UDC PO SCH (09:00)
[2017-04-07] MEDS ORDERED: CEFTRIAXONE SOD INJ 1,000 MG in DEXTROSE 5% 50ML 50 ML IV SCH (09:00)
[2017-04-07] MEDS ORDERED: INSULIN GLARGINE SOLOSTAR 100 UNITS/ML 3 ML PEN SC ONE (09:00)
[2017-04-07] MEDS ORDERED: INSULIN GLARGINE SOLOSTAR 100 UNITS/ML 3 ML PEN SC SCH ×2 (09:00→21:00)
--- NOTE | 2017-04-07 09:29 | Clinical Documentation Query ---
CLINICAL DOCUMENTATION QUERY Dr. GILBERT, In your clinical opinion is this patient being managed for: ( x ) Urinary tract infection ( ) Not Agree ( ) Other explanation of clinical findings (Please Explain) ( ) Unable to determine (Please Define) ( ) Need to Discuss The medical record reflects the following clinical findings, treatment, and risk factors. Clinical Indicators: 76 yo male presented with COPD exacerbation. UA LE moderate/WBC >30/bacteria +1. Treatment: currently on IV rocephin, UA cx is pending Risk Factors: DM Please clarify and document your clinical opinion in the progress notes and discharge summary. Terms such as "probable", "suspected", "likely", "questionable", "possible", or "still to be ruled out" are acceptable. IF IN AGREEMENT, YOU MUST DOCUMENT ABOVE DIAGNOSTIC STATEMENT IN DAILY PROGRESS NOTES AND DISCHARGE SUMMARY. This document is not part of the patient's record. Thank You, Mary Coto RN [phone]
--- NOTE | 2017-04-07 10:56 | DIAGNOSTIC IMAGING REPORT ---
(CHEST FOR PE) ANGIO WITH CT DOSE: 543.51 mGycm HISTORY: Chest pain dyspnea TECHNIQUE: Multiaxial CT images of the chest were performed following the intravenous administration of contrast to evaluate the pulmonary arteries. Maximal intensity projection images were also obtained. A dose lowering technique was utilized adhering to the principles of ALARA. COMPARISON STUDY: CT abdomen 06/27/2016 FINDINGS: Mild atherosclerotic change thoracic aorta. No evidence for aneurysm or dissection. The pulmonary vasculature enhances appropriately and there are no significant filling defects. There are findings of generalized moderate interstitial prominence throughout both hemithoraces. Mild prominence of the central pulmonary vasculature. No focal infiltrative change. Interval development of several small nodular densities. 5 mm pleural-based nodular density left upper lobe transaxial image 205 and 206. Right lower lobe demonstrates development of a 12 x 10 mm nodule intact to the right major fissure transaxial image 124. Small hiatal hernia. Mild stable cardiomegaly. IMPRESSION: 1. Study is negative for pulmonary embolus. 2. Generalized interstitial prominence throughout both hemithoraces possibly on the basis of a low-grade pneumonitis. 3. Interval development of and/or increased prominence of at least 2 basilar parenchymal nodules as described. Possibility of developing metastatic process must be considered. 4. Cirrhotic liver. 5. Prior cholecystectomy The above report was generated using voice recognition software. It may contain grammatical, syntax or spelling errors. Electronically signed by: Yayo Reyes M.D. 04/07/2017 10:54 AM Dictated Date/Time: 04/07/2017 10:46 AM
--- NOTE | 2017-04-07 13:33 | Pulmonary Consultation ---
History General Date of Service: Apr 07, 2017. Stated Complaint: Acute Dyspnea HPI Patient is a 76 yo male who presented to the ED with concerns of SOB and high blood pressure. The patient had recently been seen by Dr. García in Urology for his prostate. The patient had a CT of the abdomen/pelvis completed and was noted to have a lung nodule on his most recent study. He was planned to have a CT scan of the chest completed as an outpatient, but became symptomatic, so he came to the ED instead. He has noted some wheezing at home PAN SHOVER, but felt his breathing acutely worsened quickly PAN SHOVER. He does have history of COPD and asthma for which he has Pulmicort, Formoterol fumarate, and Proventil at home. Since admission, the patient did have a chest X-Ray which showed cardiomegaly and mild pulmonary vascular congestion but no acute disease. CTA of Chest is pending. He states that he continues to feel poorly. He is short of breath and also slightly nauseated on and off. The patient states that he did vomit prior to admission. He was eating breakfast after which he began to feel very nauseated and vomited. He did note that he became increasingly short of breath following that episode, but that he was also SOB prior to the episode as well just not as much. He states that he had an acute episode of chest pain a few months ago when hunting, but since that time has had no chest pain. Past Records: Abdomen/Pelvis CT scan 04/03: Images viewed. IMPRESSION: 1. No renal or ureteral stones. No hydronephrosis. 2. No suspicious filling defects seen within the opacified bilateral renal collecting systems, ureters, or bladder. 3. A 1.1 x 1.0 cm nodule within the right lower lobe which demonstrates irregular margins. This is suspicious for a primary bronchogenic malignancy. PET CT is recommended for further evaluation. 4. Hepatic cirrhosis and spontaneity persist. 5. Elongated/enlarged periportal lymph node which has slightly increased in size. This is of uncertain clinical significance ankle be related to the long-standing cirrhosis. 6. These findings were called/faxed to the referring physician's office following dictation Abdomen/Pelvis CT 11/02/16: These images were viewed- note very small nodule in the right lung base in same region as current nodule in question. No previous dedicated CT of Chest for review. IMPRESSION: 1. Hepatic cirrhosis. 2. Prior cholecystectomy. 3. Scattered colonic diverticulosis with no evidence for acute diverticulitis. 4. Prior cholecystectomy and a partial sigmoid resection all unchanged from the prior study. 5. No acute process the abdomen or pelvis. Abdomen/Pelvis CT from 06/27/16, nodule was noted noted in lower right lung. Echocardiogram 04/22/16: Left ventricular diastolic dysfunction Mild left atrial dilatation Trace pulmonic regurgitation & tricuspid regurgitation, mild calcific aortic stenosis Normal Biventricular systolic function EF 65-70% Normal TAPSE Historian: patient Review of Systems Constitutional: reports: chills, other (night sweats x 2 nights ) Eyes: denies: blurred vision ENT: denies: loss of hearing Respiratory: reports: cough, shortness of breath, sputum production (white sputum production prior to admisison) Gastrointestinal: reports: abdominal pain, nausea, vomiting (PAN SHOVER) Integumentary: denies: rash All Other Symptoms All Other Systems: Reviewed and Negative Past Medical History Past Medical History: Medical Problems: (1) Acute dyspnea (2) Asthma (3) BPH (benign prostatic hyperplasia) (4) Bradycardia (5) Calcaneal spur (6) Carpal tunnel syndrome (7) Clostridium difficile diarrhea (8) COPD (chronic obstructive pulmonary disease) (9) CVA (cerebral vascular accident) (10) Diabetes (11) Gout (12) Hepatic encephalopathy (13) Hypertension (14) Liver disease (15) Right lower lobe lung mass (16) Right ureteral calculus Past Medical History: asthma, BPH, CVA/TIA/stroke, diabetes, GERD, gout, hypertension, kidney stones, liver disease, osteoarthritis, renal disease, other Past Surgical History: cholecystectomy, EGD, TKR, other Family History Cancer FHx: hemochromatosis Heart disease Hypertension Social History Hx Tobacco Use In Past Year?: No (SMOKED 3 PPD X 4-5 YRS-QUIT 1971) Smoking Status: Former Smoker Alcohol: history of alcohol abuse Marital status: Housing status: lives alone Occupational Status: retired History of MDRO History of MDRO: No Allergies Coded Allergies: Meperidine (Verified Allergy, Severe, ANAPHYLAXIS, 01/09/17) Iodinated Diagnostic Agents (Verified Allergy, Intermediate, HIVES, ) Oxycodone (Verified Allergy, Intermediate, SHORTNESS OF BREATH, 01/09/17) wheezing ??? Dobutamine (Verified Allergy, Unknown, abd pain, 01/09/17) Perflutren (Verified Allergy, Unknown, abd pain, 01/09/17) Current Medications Reported Home Medications Medications Dose Route/Sig Max Daily Dose Days Date Category Dose Instructions Advil (Ibuprofen) 200 Mg Tab 400 Mg PO Q6 PRN 04/06/17 Reported Diovan (Valsartan) 80 Mg Tab 80 Mg PO DAILY 04/06/17 Reported Proair Respiclick (Albuterol Sulfate) 108 Mcg/Act Aer 2 Puffs INH Q6 PRN 04/06/17 Reported Proventil 0.083% 2.5MG/3ML (Albuterol Sulf) 2.5 Mg/3 Ml Nebu 2.5 Mg INH Q6 PRN 04/06/17 Reported Humalog (Insulin Human Lispro) 1 Ea Inj 10 Units SQ TIDM 04/06/17 Reported Cyanocobalamin 1,000 Mcg/Ml Inj 1 Ml PO MONTHLY 04/06/17 Reported Vitamin D3 (Cholecalciferol) 1,000 Unit Cap 2,000 Units PO QAM 12/26/16 Reported Fiber Tabs (Calcium Polycarbophil) 625 Mg Tab 1 Tab PO QAM 12/26/16 Reported Vitamin B1 (Thiamine Hcl) 100 Mg Tab 200 Mg PO BID 12/26/16 Reported Coreg (Carvedilol) 3.125 Mg Tab 3.125 Mg PO BID 12/26/16 Reported Aspirin Ec (Aspirin) 81 Mg Tab 81 Mg PO QAM 12/26/16 Reported Chronulac (Lactulose) 10 Gm/15 Ml Syrp 40 Gm PO DAILY 12/26/16 Reported Lipitor (Atorvastatin Calcium) 40 Mg Tab 40 Mg PO QAM 09/06/16 Reported Meclizine Hcl 25 Mg Tab 1 Tab PO Q6H PRN 10 09/06/16 Reported Neurontin (Gabapentin) 300 Mg Cap 300 Mg PO QPM 06/27/16 Reported Pulmicort Respules 0.5MG/2ML (Budesonide) 0.5 Mg/2 Ml Nebu 2 Ml INH BID PRN 04/20/16 Reported Perforomist (Formoterol Fumarate) 20 Mcg/2 Ml Neb 2 Ml INH BID PRN 04/20/16 Reported Nitrostat (Nitroglycerin) 0.4 Mg Tab 0.4 Mg UT PRN 9/1/16 Reported Flomax (Tamsulosin Hcl) 0.4 Mg Cap 0.4 Mg PO QPM 01/15/16 Reported Mag-Ox (Magnesium Oxide) 400 Mg Tab 400 Mg PO BID 10/09/15 Reported Toujeo Solostar (Insulin Glargine) 300 Unit/Ml Inj 30 Units INJ HS 10/09/15 Reported Protonix (Pantoprazole Sodium) 40 Mg Tab 40 Mg PO BID 06/04/15 Reported Paroxetine HCl (Paroxetine) 10 Mg Tab 10 Mg PO QAM 06/04/15 Reported Allopurinol 300 Mg Tab 300 Mg PO QAM 02/05/14 Reported 0800 Synthroid (Levothyroxine Sodium) 50 Mcg Tab 50 Mcg PO QAM 02/05/14 Reported 0600 Physical Physical Exam Vital Signs: Date Time Temp Pulse Resp B/P (MAP) Pulse Ox O2 Delivery O2 Flow Rate FiO2 04/07/17 08:00 Room Air 04/07/17 07:21 36.6 60 20 161/81 (107) Room Air 04/07/17 07:04 68 18 98 Room Air 04/07/17 04:00 Room Air 04/07/17 03:53 36.5 64 16 126/71 (89) 97 Room Air 04/07/17 02:59 74 18 96 Room Air 04/07/17 00:06 36.4 54 18 118/63 (81) 98 Room Air 04/07/17 00:00 Room Air 04/06/17 23:14 58 20 97 Room Air 04/06/17 22:28 54 133/78 (96) 96 Room Air 04/06/17 20:48 68 22 98 Room Air 04/06/17 20:48 Room Air 04/06/17 20:21 36.7 64 18 162/85 (110) 98 Room Air 04/06/17 19:48 58 14 155/73 100 04/06/17 19:31 155/73 04/06/17 19:30 58 14 100 04/06/17 19:01 134/80 04/06/17 19:00 69 14 98 04/06/17 18:31 153/81 04/06/17 18:30 64 23 99 04/06/17 18:09 65 18 157/88 100 Room Air 04/06/17 17:40 58 16 152/83 100 Room Air 04/06/17 17:03 58 20 99 Room Air 04/06/17 16:59 99 Room Air 04/06/17 16:38 55 18 146/97 99 Room Air 04/06/17 15:59 58 04/06/17 15:50 96 Room Air 04/06/17 14:56 36.8 65 22 148/101 99 Room Air General Appearance: NO APPARENT DISTRESS, obese Head: NORMOCEPHALIC, ATRAUMATIC Eyes: EOMI, SCLERAE NORMAL Neck: TRACHEA MIDLINE, NO STRIDOR Respiratory: other (Decreased breath sounds throughtout. No real wheeze or crackles heard on exam- patient just completed neb prior to my exam) Cardiovasular: REGULAR RATE/RHYTHM, systolic murmur Abdomen: NORMAL BOWEL SOUNDS Back: NORMAL INSPECTION Lower Extremities: edema (trace to 1+ pitting edema b/l LE) Neuro: ALERT Psychiatric: NORMAL AFFECT Diagnostics Labs Results Past 24 Hours Test 04/06/17 15:55 04/06/17 20:06 04/06/17 20:30 04/07/17 05:37 Range/Units White Blood Count 4.75 3.20 4.8-10.8 K/uL Red Blood Count 4.06 3.90 4.7-6.1 M/uL Hemoglobin 12.7 12.1 14.0-18.0 g/dL Hematocrit 37.5 35.9 42-52 % Mean Corpuscular Volume 92.4 92.1 80-100 fL Mean Corpuscular Hemoglobin 31.3 31.0 25-34 pg Mean Corpuscular Hemoglobin Concent 33.9 33.7 32-36 g/dl Platelet Count 84 65 130-400 K/uL Mean Platelet Volume 9.8 9.8 7.4-10.4 fL Neutrophils (%) (Auto) 56.5 % Lymphocytes (%) (Auto) 29.3 % Monocytes (%) (Auto) 8.2 % Eosinophils (%) (Auto) 4.6 % Basophils (%) (Auto) 0.6 % Neutrophils # (Auto) 2.68 1.4-6.5 K/uL Lymphocytes # (Auto) 1.39 1.2-3.4 K/uL Monocytes # (Auto) 0.39 0.11-0.59 K/uL Eosinophils # (Auto) 0.22 0-0.5 K/uL Basophils # (Auto) 0.03 0-0.2 K/uL RDW Standard Deviation 51.9 51.6 36.4-46.3 fL RDW Coefficient of Variation 15.2 15.2 11.5-14.5 % Immature Granulocyte % (Auto) 0.8 % Immature Granulocyte # (Auto) 0.04 0.00-0.02 K/uL Prothrombin Time 11.5 9.0-12.0 SECONDS Prothromb Time International Ratio 1.1 0.9-1.1 Activated Partial Thromboplast Time 27.9 21.0-31.0 SECONDS Partial Thromboplastin Ratio 1.1 Sodium Level 145 143 136-145 mmol/L Potassium Level 4.0 4.1 3.5-5.1 mmol/L Chloride Level 112 112 98-107 mmol/L Carbon Dioxide Level 24 21 21-32 mmol/L Anion Gap 9.0 10.0 3-11 mmol/L Blood Urea Nitrogen 22 25 7-18 mg/dl Creatinine 1.31 1.34 0.60-1.40 mg/dl Est Creatinine Clear Calc Drug Dose 61.7 59.8 ml/min Estimated GFR () 61.3 59.6 Estimated GFR (Non- 52.9 51.5 BUN/Creatinine Ratio 16.8 18.4 10-20 Random Glucose 101 187 70-99 mg/dl Calcium Level 9.6 9.3 8.5-10.1 mg/dl Total Bilirubin 0.7 0.2-1 mg/dl Aspartate Amino Transf (AST/SGOT) 23 15-37 U/L Alanine Aminotransferase (ALT/SGPT) 27 12-78 U/L Alkaline Phosphatase 66 45-117 U/L Troponin I < 0.015 0-0.045 ng/ml Pro-B-Type Natriuretic Peptide 233 0-900 pg/ml Total Protein 6.9 6.4-8.2 gm/dl Albumin 3.5 3.4-5.0 gm/dl Globulin 3.4 2.5-4.0 gm/dl Albumin/Globulin Ratio 1.0 0.9-2 Thyroid Stimulating Hormone (TSH) 2.360 0.300-4.500 uIu/ml Bedside Glucose 105 70-99 mg/dl Urine Color YELLOW Urine Appearance CLEAR CLEAR Urine pH 5.0 4.5-7.5 Urine Specific [place] 1.023 1.000-1.030 Urine Protein TRACE NEG Urine Glucose (UA) NEG NEG Urine Ketones NEG NEG Urine Occult Blood TRACE NEG Urine Nitrite POS NEG Urine Bilirubin NEG NEG Urine Urobilinogen NEG NEG Urine Leukocyte Esterase MODERATE NEG Urine WBC (Auto) >30 0-5 /hpf Urine RBC (Auto) 5-10 0-4 /hpf Urine Hyaline Casts (Auto) 1-5 0-5 /lpf Urine Epithelial Cells (Auto) 0-5 0-5 /lpf Urine Bacteria (Auto) 1+ NEG Estimated Average Glucose 126 mg/dl Hemoglobin A1c 6.0 4.5-5.6 % Magnesium Level 1.5 1.8-2.4 mg/dl Test 04/07/17 07:30 Range/Units Bedside Glucose 205 70-99 mg/dl Microbiology Results 04/06/17 Urine Culture, Received Pending Diagnostic Radiology VS reviewed: Patient has been saturating well on room air. RR 16-20 HR 60-74 BP 161/81 this morning Afebrile (CHEST FOR PE) ANGIO WITH CT DOSE: 543.51 mGycm HISTORY: Chest pain dyspnea TECHNIQUE: Multiaxial CT images of the chest were performed following the intravenous administration of contrast to evaluate the pulmonary arteries. Maximal intensity projection images were also obtained. A dose lowering technique was utilized adhering to the principles of ALARA. COMPARISON STUDY: CT abdomen 06/27/2016 FINDINGS: Mild atherosclerotic change thoracic aorta. No evidence for aneurysm or dissection. The pulmonary vasculature enhances appropriately and there are no significant filling defects. There are findings of generalized moderate interstitial prominence throughout both hemithoraces. Mild prominence of the central pulmonary vasculature. No focal infiltrative change. Interval development of several small nodular densities. 5 mm pleural-based nodular density left upper lobe transaxial image 205 and 206. Right lower lobe demonstrates development of a 12 x 10 mm nodule intact to the right major fissure transaxial image 124. Small hiatal hernia. Mild stable cardiomegaly. IMPRESSION: 1. Study is negative for pulmonary embolus. 2. Generalized interstitial prominence throughout both hemithoraces possibly on the basis of a low-grade pneumonitis. 3. Interval development of and/or increased prominence of at least 2 basilar parenchymal nodules as described. Possibility of developing metastatic process must be considered. 4. Cirrhotic liver. 5. Prior cholecystectomy EKG Sinus bradycardia on EKG. Viewed Impression Assessment and Plan RLL New lung nodule Acute onset Dypnea COPD with possible acute exacerbation Patient is currently on IV Ceftriaxone and Azithromycin along with Duoneb. He is saturating well on room air. The patient is on PO Prednisone 40 mg currently. Recommend continuing prednisone for now. Will need a tapering course. CTA of chest showing possible pneumonitis- since patient had vomiting episode prior to admission, question possible aspiration pneumonitis. Will change from IV Ceftriaxone to PO Augmentin. Continue abx therapy for now pending further workup. Patient may be OK for discharge tomorrow on PO abx and steroids if he improves. New lung nodule noted to have increase in size over the past 5 months from abdominal/pelvic CT scans. Patient will need PET/CT scan JUWAN following discharge along with full pulmonary function test evaluation as an outpatient. Following PET/CT and PFTs, will determine further workup/intervention for new lung nodule. May be considered for resection. Pulm will follow. Patient seen in room plan reviewed. Agree with the above assessment plan.
[2017-04-07] MEDS ORDERED: CEFTRIAXONE SOD INJ 1 GM in DEXTROSE 5% ADD-VANTAGE 50ML 50 ML IV SCH (14:15)
[2017-04-07] MEDS ORDERED: HydrALAZINE HCL 20 MG/ML VIAL IV. PRN (14:15)
--- NOTE | 2017-04-07 14:15 | Hospitalist Progress Note ---
Hospitalist Progress Note Date of Service Apr 07, 2017. Subjective Pt evaluation today including: conversation w/ patient, physical exam, lab review, review of studies, review of inpatient medication list Patient resting in bed. Notes continued SOB w/ exertion. Progressively getting worse for sometime now. Eating and drinking OK. +dysuria. Patient denies any fever, chills, sweats, lightheadedness, dizziness, vision changes, CP, palpitations, edema, wheezing, cough, abdominal pain, nausea, vomiting, diarrhea, melena, numbness/tingling, weakness, muscle/joint pain, anxiety/depression, active bleeding, or new skin discoloration/changes. Medications Current Inpatient Medications Medications (Trade) Dose Ordered Sig/Ronna Route Start Time Stop Time Status Last Admin Dose Admin Allopurinol (Zyloprim Tab) 300 mg QAM PO 04/07/17 09:00 05/07/17 08:59 04/07/17 07:57 300 MG Atorvastatin Calcium (Lipitor Tab) 40 mg QAM PO 04/07/17 09:00 05/07/17 08:59 04/07/17 07:57 40 MG Carvedilol (Coreg Tab) 3.125 mg BID PO 04/06/17 21:00 05/06/17 20:59 04/07/17 07:58 3.125 MG Gabapentin (Neurontin Cap) 300 mg QPM PO 04/06/17 21:00 05/06/17 20:59 04/06/17 22:26 300 MG Levothyroxine Sodium (Synthroid Tab) 50 mcg DAILYBB PO 04/07/17 06:30 05/07/17 06:59 04/07/17 05:47 50 MCG Pantoprazole Sodium (Protonix Tab) 40 mg BID PO 04/06/17 21:00 05/06/17 20:59 04/07/17 07:57 40 MG Tamsulosin HCl (Flomax Cap) 0.4 mg QPM PO 04/06/17 21:00 05/06/17 20:59 04/06/17 22:26 0.4 MG Valsartan (Diovan Tab) 80 mg DAILY PO 04/07/17 09:00 05/07/17 08:59 04/07/17 07:58 80 MG Paroxetine HCl (pAXil TAB) 10 mg QAM PO 04/07/17 09:00 05/07/17 08:59 04/07/17 07:58 10 MG Prednisone (PredniSONE TAB) 40 mg DAILY PO 04/08/17 09:00 05/08/17 08:59 Acetaminophen (Tylenol Tab) 650 mg Q4H PRN PO 04/06/17 18:30 05/06/17 18:29 Al Hydrox/Mg Hydrox/Simethicone (Maalox Max Susp) 15 ml Q4H PRN PO 04/06/17 18:30 05/06/17 18:29 Ondansetron HCl (Zofran Inj) 4 mg Q6H PRN IV 04/06/17 18:30 05/06/17 18:29 Nitroglycerin (Nitrostat Tab) 0.4 mg UD PRN SL 04/06/17 18:30 05/06/17 18:29 Insulin Aspart (novoLOG ASPART) SLIDING SCALE PARAMETER ACHS SC 04/06/17 21:00 05/06/17 20:59 04/07/17 12:08 10 UNITS Azithromycin (Zithromax Tab) 500 mg QAM PO 04/07/17 09:00 04/14/17 08:59 04/07/17 07:58 500 MG Formoterol Fumarate (Perforomist 20MCG/2ML Neb Soln) 20 mcg Q12R INH 04/06/17 20:00 05/06/17 19:59 04/07/17 07:02 20 MCG Albuterol/ Ipratropium (Duoneb) 3 ml Q4R INH 04/07/17 00:00 05/07/17 00:00 04/07/17 11:16 3 ML Albuterol/ Ipratropium (Duoneb) 3 ml Q2H PRN INH 04/06/17 18:45 05/06/17 18:44 Ioversol (Optiray 320) 111 ml UD PRN IV 04/06/17 18:45 04/10/17 18:44 Heparin Sodium (Porcine) (Heparin Sq 5000 Unit/0.5ml) 5,000 unit Q12 SQ 04/06/17 21:00 05/06/17 20:59 04/07/17 08:06 5,000 UNIT Glucose (Glucose 40% Gel) 15-30 GRAMS 15 GRAMS... UD PRN PO 04/06/17 19:30 05/06/17 19:29 Glucose (Glucose Chew Tab) 4-8 Tablets 4 Tabl... UD PRN PO 04/06/17 19:30 05/06/17 19:29 Dextrose (Dextrose 50% 50ML Syringe) 25-50ML OF 50% DW IV FOR... UD PRN IV 04/06/17 19:30 05/06/17 19:29 Glucagon (Glucagon Inj) 1 mg UD PRN SQ 04/06/17 19:30 05/06/17 19:29 Tramadol HCl (Ultram Tab) 50 mg Q6H PRN PO 04/06/17 20:15 05/06/17 20:14 Menthol (Nice Sheela) 1 sheela PRN PRN PO 04/07/17 02:15 05/07/17 02:14 Insulin Glargine (Lantus Solostar Pen) 15 units QPM SC 04/07/17 21:00 05/06/17 20:59 Insulin Glargine (Lantus Solostar Pen) 20 units QAM SC 04/07/17 09:00 05/07/17 08:59 Lactulose (Chronulac Syrup) 40 gm DAILY PO 04/08/17 09:00 05/07/17 08:59 Amoxicillin/ Clavulanate Potassium (Augmentin Tab) 875 mg BIDM PO 04/07/17 17:00 04/14/17 16:59 Objective Vital Signs Date Time Temp Pulse Resp B/P (MAP) Pulse Ox O2 Delivery O2 Flow Rate FiO2 04/07/17 12:00 Room Air 04/07/17 11: 36.6 57 20 166/89 (114) 97 Room Air 04/07/17 11:17 59 16 98 Room Air 04/07/17 08:00 Room Air 04/07/17 07:21 36.6 60 20 161/81 (107) Room Air 04/07/17 07:04 68 18 98 Room Air 04/07/17 04:00 Room Air 04/07/17 03:53 36.5 64 16 126/71 (89) 97 Room Air 04/07/17 02:59 74 18 96 Room Air 04/07/17 00:06 36.4 54 18 118/63 (81) 98 Room Air 04/07/17 00:00 Room Air 04/06/17 23:14 58 20 97 Room Air 04/06/17 22:28 54 133/78 (96) 96 Room Air 04/06/17 20:48 68 22 98 Room Air 04/06/17 20:48 Room Air 04/06/17 20:21 36.7 64 18 162/85 (110) 98 Room Air 04/06/17 19:48 58 14 155/73 100 04/06/17 19:31 155/73 04/06/17 19:30 58 14 100 04/06/17 19:01 134/80 04/06/17 19:00 69 14 98 04/06/17 18:31 153/81 04/06/17 18:30 64 23 99 04/06/17 18:09 65 18 157/88 100 Room Air 04/06/17 17:40 58 16 152/83 100 Room Air 04/06/17 17:03 58 20 99 Room Air 04/06/17 16:59 99 Room Air 04/06/17 16:38 55 18 146/97 99 Room Air 04/06/17 15:59 58 04/06/17 15:50 96 Room Air 04/06/17 14:56 36.8 65 22 148/101 99 Room Air Physical Exam General Appearance: no apparent distress Eyes: normal inspection, PERRL ENT: hearing grossly normal Neck: supple Respiratory/Chest: lungs clear, no respiratory distress, no accessory muscle use, + decreased breath sounds (throughout ) Cardiovascular: regular rate, rhythm, + systolic murmur Abdomen: normal bowel sounds, non tender, soft Extremities: no pedal edema, no calf tenderness Neurologic/Psychiatric: alert, normal mood/affect, oriented x 3 Skin: normal color, warm/dry, no rash Laboratory Results Last 24 Hours Test 04/06/17 15:55 04/06/17 20:06 04/06/17 20:30 04/07/17 05:37 White Blood Count 4.75 K/uL 3.20 K/uL Red Blood Count 4.06 M/uL 3.90 M/uL Hemoglobin 12.7 g/dL 12.1 g/dL Hematocrit 37.5 % 35.9 % Mean Corpuscular Volume 92.4 fL 92.1 fL Mean Corpuscular Hemoglobin 31.3 pg 31.0 pg Mean Corpuscular Hemoglobin Concent 33.9 g/dl 33.7 g/dl Platelet Count 84 K/uL 65 K/uL Mean Platelet Volume 9.8 fL 9.8 fL Neutrophils (%) (Auto) 56.5 % Lymphocytes (%) (Auto) 29.3 % Monocytes (%) (Auto) 8.2 % Eosinophils (%) (Auto) 4.6 % Basophils (%) (Auto) 0.6 % Neutrophils # (Auto) 2.68 K/uL Lymphocytes # (Auto) 1.39 K/uL Monocytes # (Auto) 0.39 K/uL Eosinophils # (Auto) 0.22 K/uL Basophils # (Auto) 0.03 K/uL RDW Standard Deviation 51.9 fL 51.6 fL RDW Coefficient of Variation 15.2 % 15.2 % Immature Granulocyte % (Auto) 0.8 % Immature Granulocyte # (Auto) 0.04 K/uL Prothrombin Time 11.5 SECONDS Prothromb Time International Ratio 1.1 Activated Partial Thromboplast Time 27.9 SECONDS Partial Thromboplastin Ratio 1.1 Sodium Level 145 mmol/L 143 mmol/L Potassium Level 4.0 mmol/L 4.1 mmol/L Chloride Level 112 mmol/L 112 mmol/L Carbon Dioxide Level 24 mmol/L 21 mmol/L Anion Gap 9.0 mmol/L 10.0 mmol/L Blood Urea Nitrogen 22 mg/dl 25 mg/dl Creatinine 1.31 mg/dl 1.34 mg/dl Est Creatinine Clear Calc Drug Dose 61.7 ml/min 59.8 ml/min Estimated GFR () 61.3 59.6 Estimated GFR (Non- 52.9 51.5 BUN/Creatinine Ratio 16.8 18.4 Random Glucose 101 mg/dl 187 mg/dl Calcium Level 9.6 mg/dl 9.3 mg/dl Total Bilirubin 0.7 mg/dl Aspartate Amino Transf (AST/SGOT) 23 U/L Alanine Aminotransferase (ALT/SGPT) 27 U/L Alkaline Phosphatase 66 U/L Troponin I < 0.015 ng/ml Pro-B-Type Natriuretic Peptide 233 pg/ml Total Protein 6.9 gm/dl Albumin 3.5 gm/dl Globulin 3.4 gm/dl Albumin/Globulin Ratio 1.0 Thyroid Stimulating Hormone (TSH) 2.360 uIu/ml Bedside Glucose 105 mg/dl Urine Color YELLOW Urine Appearance CLEAR Urine pH 5.0 Urine Specific [place] 1.023 Urine Protein TRACE Urine Glucose (UA) NEG Urine Ketones NEG Urine Occult Blood TRACE Urine Nitrite POS Urine Bilirubin NEG Urine Urobilinogen NEG Urine Leukocyte Esterase MODERATE Urine WBC (Auto) >30 /hpf Urine RBC (Auto) 5-10 /hpf Urine Hyaline Casts (Auto) 1-5 /lpf Urine Epithelial Cells (Auto) 0-5 /lpf Urine Bacteria (Auto) 1+ Estimated Average Glucose 126 mg/dl Hemoglobin A1c 6.0 % Magnesium Level 1.5 mg/dl Test 04/07/17 07:30 04/07/17 11:28 Bedside Glucose 205 mg/dl 279 mg/dl Assessment and Plan 76-year-old male with acute dyspnea likely COPD exacerbation Acute dyspnea, secondary to ?pneumonitis w/ COPD exacerbation: - Admitted to med/surg - Prednisone 40 mg daily and taper - DuoNeb QID and PRN for SOB/wheezing - Azithromycin 500 mg QAM - CTA of chest showing possible pneumonitis- PO Augmentin per pulmonary for ? aspiration - Consulted pulmonary, appreciate recommendations RLL New lung nodule: PET/CT scan and PFTs JUWAN following discharge UTI POA: IV Rocephin x1 dose, switched to Cipro 500 mg BID (due to starting Augmentin) pending UCx and sensitives Hypomagnesemia: Replaced w/ IV mag 1 gm x1 T2DM w/ neuropathy: - Hold Toujeo while inpatient - Lantus 15 u HS and 20 QAM - BSG ACHS and ISS - Gabapentin 300 mg HS Cirrhosis and liver disease: Continue Lactulose h/o CVA, HTN, HLD: Continue Lipitor 40 mg daily, Coreg 3.125 mg BID, Diovan 80 mg daily BPH: Continue Flomax Anxiety, depression: Continue Paxil DVT prophylaxis: Heparin SQ BID Code Status: LEVEL V, DNR Dispo: Possible discharge tomorrow
[2017-04-07] MEDS ORDERED: PHARMACY GLYCEMIC MGMT CONSULT SCH (15:29)
--- NOTE | 2017-04-07 16:11 | Pharmacy Progress Note ---
Glycemic Control Intl Consult Date of Service Apr 07, 2017. Scope Glycemic Pharmacist consulted by Dr Ryan on 04/07/17 for glycemic control and to write orders per [facility] inpatient glycemic control protocol Objective Weight (Kilograms): 115.900 Accuchecks BSG (last 24hrs): Test 04/06/17 15:55 04/06/17 20:06 04/07/17 05:37 04/07/17 07:30 Random Glucose 101 mg/dl (70-99) 187 mg/dl (70-99) Bedside Glucose 105 mg/dl (70-99) 205 mg/dl (70-99) Test 04/07/17 11:28 Bedside Glucose 279 mg/dl (70-99) Laboratory Data (last 24hrs) Test 04/06/17 15:55 04/07/17 05:37 Anion Gap 9.0 mmol/L 10.0 mmol/L BUN/Creatinine Ratio 16.8 18.4 Blood Urea Nitrogen 22 mg/dl 25 mg/dl Creatinine 1.31 mg/dl 1.34 mg/dl Potassium Level 4.0 mmol/L 4.1 mmol/L Sodium Level 145 mmol/L 143 mmol/L White Blood Count 4.75 K/uL 3.20 K/uL Red Blood Count 4.06 M/uL Hemoglobin 12.7 g/dL Hematocrit 37.5 % Mean Corpuscular Volume 92.4 fL Mean Corpuscular Hemoglobin 31.3 pg Mean Corpuscular Hemoglobin Concent 33.9 g/dl Platelet Count 84 K/uL Mean Platelet Volume 9.8 fL Neutrophils (%) (Auto) 56.5 % Lymphocytes (%) (Auto) 29.3 % Monocytes (%) (Auto) 8.2 % Eosinophils (%) (Auto) 4.6 % Basophils (%) (Auto) 0.6 % Neutrophils # (Auto) 2.68 K/uL Lymphocytes # (Auto) 1.39 K/uL Monocytes # (Auto) 0.39 K/uL Eosinophils # (Auto) 0.22 K/uL Basophils # (Auto) 0.03 K/uL Hemoglobin A1c 6.0 % HbA1c Test 04/07/17 05:37 Hemoglobin A1c 6.0 % (4.5-5.6) H Recent Pertinent Medications Outpatient Anti-diabetic Regimen: * Lantus 30 units SQ HS plus Novolog 10 units TIDM The patient is currently receiving: * Basal insulin: Lantus 20 units every morning and 15 units in the evening * Correctional Insulin: Novolog Correction per scale ACHS Goal Range: Low 80 mg/dL - High 150 mg/dL Correction Factor: 25 mg/dL/unit * Prandial insulin: Per carb ratio of 1 unit per 12 grams CHO consumed Risk Factors for Insulin Resistance: * Steroids: methylprednisolone home pack for iodine contrast, now prednisone 40 mg daily * Infection: UTI and acute bronchitis (cipro + Augmentin + azithromycin) * Diet: type 2 diabetic diet Assessment & Plan ASSESSMENT: * Mr Bonner is a 76 Y/O M with a PMH of COPD, asthma, and liver disease. Previous evening, the patient's Lantus was cut by 50% since he takes Tuojeo at home (given 15 units).... the patient had elevated blood sugars today with a fasting of 205 mg/dL and lunch blood sugar of 279 mg/dL. He received 7 units of Novolog at lunch and an extra 20 of Lantus tonight. * For Lantus, 15 units will be given this evening. This will be slightly above his home dose but should be sufficient with the 20 from this morning. Tomorrow morning, a dose of 45 units of NPH (0.4 units/kg) will be given as this is recommended with once daily 40 mg equivalents of prednisone. Lantus 30 will be resumed tomorrow evening. * For Novolog, weight-based stress of 3 will be utilized this evening as the patient's blood sugar nydia between breakfast and lunch. Will continue this for an 0200 accucheck to ensure patient stays controlled throughout the night. For breakfast tomorrow, with the dose of NPH, the parameters will be loosened to weight-based stress of 2 to prevent too aggressive correction. PLAN FOR INPATIENT GLYCEMIC CONTROL: * Basal insulin with LANTUS 15 units SQ tonight then 30 units tomorrow morning; NPH 45 units SQ x 1 tomorrow morning * Correctional Insulin with NOVOLOG per scale ACHS or Q6hrs while NPO * Goal Range: Low 110 mg/dL - High 140 mg/dL * Correction Factor: 15 mg/dL/unit * Nutritional / Prandial insulin per carb ratio of 1 unit per 5 grams CHO consumed PLAN FOR OUTPATIENT * may continue home insulin dosing as long as patient does not have an hypoglycemia Thank you.
[2017-04-07] MEDS: AMOXICILLIN/CLAVULANATE TAB 875 MG TAB PO SCH (17:49)
[2017-04-07 19:13] LABS: BUN/CREATININE RATIO 18.2 (10-20); CALCIUM 9.7 mg/dl (8.5-10.1); CREATININE 1.45 mg/dl (0.60-1.40); MAGNESIUM 1.9 mg/dl (1.8-2.4); POTASSIUM 4.3 mmol/L (3.5-5.1)
[2017-04-07] MEDS: GABAPENTIN 300 MG CAP PO SCH (21:09)
[2017-04-07] MEDS: TAMSULOSIN HCL 0.4 MG CAP PO SCH (21:09)
[2017-04-07] MEDS: CIPROFLOXACIN 500 MG TAB PO SCH (21:15)
[2017-04-08] VITALS (7 sets, daily range): BP systolic 111–134; BP diastolic 59–86; PULSE 53–79; TEMP 36.4–36.5; O2SAT 95–100
[2017-04-08] MEDS ORDERED: INSULIN ASPART 100 UNITS/ML 3 ML PEN SC SCH (02:00)
[2017-04-08] MEDS: ALBUT/IPRATROP 3MG/0.5MG NEB 3 ML VIAL INH SCH ×3 (04:01→11:05)
[2017-04-08] MEDS: LEVOTHYROXINE 50 MCG TAB PO SCH (05:50)
[2017-04-08] MEDS: FORMOTEROL FUMA NEBULIZER SOLN 20 MCG/2 ML VIAL INH SCH (07:08)
[2017-04-08 07:53] LABS: BUN/CREATININE RATIO 20.8 (10-20); CALCIUM 9.5 mg/dl (8.5-10.1); CREATININE 1.3 mg/dl (0.60-1.40); POTASSIUM 4.1 mmol/L (3.5-5.1)
[2017-04-08] MEDS: CARVEDILOL 3.125 MG TAB PO SCH (08:04)
[2017-04-08] MEDS: ATORVASTATIN 40 MG TAB PO SCH (08:06)
[2017-04-08] MEDS: CIPROFLOXACIN 500 MG TAB PO SCH (08:06)
[2017-04-08] MEDS: VALSARTAN 80 MG TAB PO SCH (08:06)
[2017-04-08] MEDS: AMOXICILLIN/CLAVULANATE TAB 875 MG TAB PO SCH (08:06)
[2017-04-08] MEDS: PAROXETINE 20 MG TAB PO SCH (08:07)
[2017-04-08] MEDS: PANTOprazole SOD 40 MG TAB PO SCH (08:07)
[2017-04-08] MEDS: AZITHROMYCIN 250 MG TAB PO SCH (08:07)
[2017-04-08] MEDS: ALLOPURINOL 300 MG TAB PO SCH (08:07)
[2017-04-08] MEDS: INSULIN ASPART 100 UNITS/ML 3 ML PEN SC SCH ×2 (08:13→12:35)
[2017-04-08] MEDS: HEPARIN SOD 5000 UNIT/0.5 ML CARP SQ SCH (08:14)
[2017-04-08] MEDS ORDERED: NovoLIN-N (NPH) PER UNIT CHARGE SQ SCH (09:00)
[2017-04-08] MEDS ORDERED: LACTULOSE SYRUP 10 GM/15 ML BTL 473 ML PO SCH (09:00)
[2017-04-08] MEDS ORDERED: PRD20 PO (11:31)
[2017-04-08] MEDS ORDERED: INSPMPHMLG SQ (11:31)
[2017-04-08] MEDS ORDERED: AZIT-57 PO (11:31)
[2017-04-08] MEDS ORDERED: NITR100C43 PO (11:31)
--- NOTE | 2017-04-08 12:30 | Discharge Instructions ---
Discharge Instructions Date of Service Apr 08, 2017. Admission Reason for Admission: Acute Dyspnea Discharge Discharge Diagnosis / Problem: Acute dyspnea, possible pneumonia, UTI Discharge Goals Goal(s): Improve function, Diagnostic testing (PET scan and PFT) Activity Recommendations Activity Limitations: resume your previous activity . Instructions / Follow-Up Instructions / Follow-Up Medications: - PREDNISONE: starting tomorrow, take 40mg then decrease to 30mg for two days, 20mg for two days and 10mg for two days then stop - AZITHROMYCIN: 500mg (2 tablets) daily for three more days, next dose due tomorrow - TOUJEO: continue current dose, due this evening - NOVOLOG/HUMALOG: will adjust mealtime insulin only while on Prednisone as this can drive up sugars today and tomorrow (04/09/17) take 25 units with meals (while you are on 40mg of Prednisone) 04/10 and 04/11 take 20 units with meals (this is while you are on 30mg of Prednisone) 04/12 and 04/13 take 15 units with meals (this is while you are on 20mg of Prednisone) 04/14 and on you can resume typical 10 units with meals Lung nodule: as we discussed, you need to follow up closely with pulmonary to get a PET scan and pulmonary function testing again, the PEG scan will test the physiologic activity of the nodule to determine if it could be a cancer the pulmonary function testing will determine how goo your lungs are, if you can tolerate types of procedures this will be discussed in further detail with pulmonology UTI: coag negative staph, sensitive to Macrobid, complete 14 doses Possible pneumonia/pneumonitis: complete Prednisone and Azithromycin FOLLOW UP - Josefa Enrique this week, PET scan, PFT, call their office at [phone] on Monday to arrange for these tests and follow up Current Hospital Diet Patient's current hospital diet: Diabetes Type 2 Diet Discharge Diet Recommended Diet: Diabetes Type 2 Diet Pending Studies Studies pending at discharge: no Laboratory Results Hemoglobin A1c Test 04/07/17 05:37 Range/Units Estimated Average Glucose 126 mg/dl Hemoglobin A1c 6.0 H 4.5-5.6 % Medical Emergencies . Who to Call and When: Medical Emergencies: If at any time you feel your situation is an emergency, please call 911 immediately. . Non-Emergent Contact Non-Emergency issues call your: Registered Respiratory Therapist Call Non-Emergent contact if: you have any medication questions . . "Provider Documentation" section prepared by John Ryan. . VTE Core Measure Inpt VTE Proph given/why not?: Unfractionated heparin SQ [place] Drug Monitoring Program Search Results: no issues identified
--- NOTE | 2017-04-08 12:37 | Pharmacy Progress Note ---
Pharmacy Glycemic Short Note 2 Date of Service Apr 08, 2017. OUTPATIENT ANTIDIABETIC REGIMEN: * Toujeo {insuling glargine U-300} 30 units SQ HS * NovoLog 10 units SQ TIDM * A1c = 6% on 04/07/17 ASSESSMENT: 04/07/17 * Pt with rebound hyperglycemia secondary to reduced outpatient basal insulin dosing and steroids (solu-medrol + prednisone). * Pharmacy consulted for glycemic control * Additional Lantus given to make up missed doses/decreased dose from 04/07 & NovoLog parameters tightened to high stress/weight dosing for steroid induced hyperglycemia. 04/08/17 * AM fasting BSG is in goal range at 135 mg/dl indicating adequate basal insulin on board (receiving 30 units of Lantus @ HS) * Pt is ordered a daily prednisone taper * NPH is the insulin of choice to cover steroid induced hyperglycemia secondary to once daily prednisone as its kinetics match that of the hyperglycemic effects of prednisone. Recommended dosing is: this dosing should be in addition to normal outpatient regimen. * Prednisone >40 mg/day ---> 0.4 units/kg/day NPH {or ~45 units} * Prednisone 30 mg/day ---> 0.3 units/kg/day NPH {or ~35 units} * Prednisone 20 mg/day ---> 0.2 units/kg/day NPH {or ~23 units} * Prednisone 10 mg/day ---> 0.1 units/kg/day NPH {or ~12 units} PLAN FOR INPATIENT GLYCEMIC CONTROL: 04/08: * Basal insulin: no change * Lantus 30 units SQ HS * NPH 45 units SQ x 1 dose today for prednisone 40mg * Bolus insulin: no change, may need to loosen parameters with the addition of NPH * NovoLog per scale ACHS or Q6hrs while NPO * Goal Range: Low 110 mg/dL - High 140 mg/dL * Correction Factor: 20 mg/dL/unit * Nutritional / Prandial insulin per carb ratio of 1 unit per 7 grams CHO consumed PLAN FOR DISCHARGE: A1c = 6% 04/07/17 indicating optimal control as an outpatient on current regimen. No changes needed to outpatient regimen, but would recommend increasing doses of NovoLog to help cover additional hyperglycemia from prednisone taper * Continue Toujeo {insulin glargine U-300} 30 units SQ HS * Continue NovoLog 10 units SQ TIDM * While on Prednisone 40mg Daily --> administer NovoLog 25 units SQ TIDM * While on Prednisone 30mg Daily --> administer NovoLog 20 units SQ TIDM * While on Prednisone 20mg Daily --> administer NovoLog 15 units SQ TIDM * While on Prednisone 40mg Daily --> administer NovoLog 10 units SQ TIDM { outpatient dosing}
[2017-04-08] MEDS ORDERED: INSULIN GLARGINE SOLOSTAR 100 UNITS/ML 3 ML PEN SC SCH (21:00)
--- NOTE | 2017-04-10 07:49 | Discharge Summary ---
Discharge Summary Date of Service Apr 08, 2017. Discharge Summary Admission Date: Apr 06, 2017 at 18:33 Discharge Date: Apr 08, 2017 Discharge Disposition: Home Principal Diagnosis: COPD exacerbation vs pneumonitis Problems/Secondary Diagnoses: Lung nodule, getting larger UTI, coag negative staph Procedures: none Consultations: Pulmonology Medication Reconciliation New Medications: Nitrofurantoin Macrocrystal (Nitrofurantoin) 100 Mg Cap 100 MG PO Q12 for 7 Days, #14 CAP 0 Refills Azithromycin (Azithromycin) 250 Mg Tab 500 MG PO QAM, #6 TAB 0 Refills Prednisone (Prednisone) 20 Mg Tab 40 MG PO UD, #8 TAB 0 Refills taper: 04/09/17 40mg for one day, then 30mg daily x 2 days, 20mg daily x 2 days and 10mg daily x 2 days Changed Medications: Insulin Human Lispro (Humalog) 1 Ea Inj 10 UNITS SQ TIDM, #1 BOX 3 Refills (Changed from: Refills: ) dosing while on Prednisone, 40mg = 25 units TID, 30mg = 20 units TID, 20mg = 15 units TID, 10mg = 10 units TID Continued Medications: Albuterol Sulf (Proventil 0.083% 2.5MG/3ML) 2.5 Mg/3 Ml Nebu 2.5 MG INH Q6 PRN for SOB/Wheezing, EA Albuterol Sulfate (Proair Respiclick) 108 Mcg/Act Aer 2 PUFFS INH Q6 PRN for SOB/Wheezing Allopurinol (Allopurinol) 300 Mg Tab 300 MG PO QAM 0800 Aspirin (Aspirin Ec) 81 Mg Tab 81 MG PO QAM Atorvastatin (Lipitor) 40 Mg Tab 40 MG PO QAM, TAB Budesonide (Pulmicort Respules 0.5MG/2ML) 0.5 Mg/2 Ml Nebu 2 ML INH BID PRN for PRN, EA Calcium Polycarbophil (Fiber Tabs) 625 Mg Tab 1 TAB PO QAM Carvedilol (Coreg) 3.125 Mg Tab 3.125 MG PO BID, TAB Cholecalciferol (Vitamin D3) 1,000 Unit Cap 2000 UNITS PO QAM Cyanocobalamin (Cyanocobalamin) 1,000 Mcg/Ml Inj 1 ML PO MONTHLY Formoterol Fumarate (Perforomist) 20 Mcg/2 Ml Neb 2 ML INH BID PRN for PRN Gabapentin (Neurontin) 300 Mg Cap 300 MG PO QPM, CAP Ibuprofen Tab (Advil) 200 Mg Tab 400 MG PO Q6 PRN for Headache or Pain, TAB Insulin Glargine (Toujeo Solostar) 300 Unit/Ml Inj 30 UNITS INJ HS Lactulose (Chronulac) 10 Gm/15 Ml Syrp 40 GM PO DAILY Levothyroxine Sodium (Synthroid) 50 Mcg Tab 50 MCG PO QAM 0600 Magnesium Oxide (Mag-Ox) 400 Mg Tab 400 MG PO BID, TAB Meclizine Hcl (Meclizine Hcl) 25 Mg Tab 1 TAB PO Q6H PRN for Dizziness or Vertigo for 10 Days, #40 TAB Nitroglycerin (Nitrostat) 0.4 Mg Tab 0.4 MG UT PRN for chest pain, BTL Pantoprazole Sodium (Protonix) 40 Mg Tab 40 MG PO BID Paroxetine (Paroxetine HCl) 10 Mg Tab 10 MG PO QAM Tamsulosin Hcl (Flomax) 0.4 Mg Cap 0.4 MG PO QPM, CAP Thiamine Hcl (Vitamin B1) 100 Mg Tab 200 MG PO BID Valsartan (Diovan) 80 Mg Tab 80 MG PO DAILY, TAB Discharge Exam Patient feeling well the morning of discharge. Breathing improved. Discussed importance of close follow up with PET scan and PFT to allow Dr. Mendieta to determine best course of action with working up pulmonary nodule. Patient understood. Discussed medications, answered all questions. Review of Systems: Constitutional: No fever, No chills, No sweats, No weight loss, No weakness , No fatigue, No problem reported Eyes: No worsening of vision, No eye pain, No redness, No discharge, No diplopia, No problem reported ENT: No hearing loss, No unusual epistaxis, No nasal symptoms, No sore throat, No tinnitus, No dental problems, No trouble swallowing, No problem reported Respiratory: + dyspnea on exertion (minimal, improved since admission), No cough, No sputum, No wheezing, No shortness of breath, No dyspnea at rest, No hemoptysis, No problem reported Cardiovascular: No chest pain, No orthopnea, No PND, No edema, No claudication, No palpitations, No problem reported Abdomen: No pain, No nausea, No vomiting, No diarrhea, No constipation, No GI bleeding, No problem reported Musculoskeletal: No joint pain, No muscle pain, No swelling, No calf pain, No problem reported Genitourinary - Male: No hematuria, No dysuria, No urinary frequency, No urinary urgency Neurologic: No memory loss, No paralysis, No weakness, No numbness/tingling , No vertigo, No balance problems, No problem reported Psychiatric: No depression symptoms, No anhedonism, No anxiety, No insomnia , No substance abuse, No problem reported Endocrine: No fatigue, No excessive thirst, No excessive urination, No problem reported Hematologic / Lymphatic: No abnormal bleeding/bruising, No clotting problems , No swollen lymph nodes, No night sweats, No problem reported Integumentary: No rash, No itch, No new/changing skin lesions, No color change, No bleeding, No problem reported Physical Exam: General Appearance: no apparent distress, + obese Eyes: normal inspection, EOMI, sclerae normal ENT: normal ENT inspection, hearing grossly normal, pharynx normal Neck: supple, no adenopathy, no JVD, trachea midline Respiratory/Chest: chest non-tender, lungs clear, normal breath sounds, no respiratory distress, no accessory muscle use Cardiovascular: regular rate, rhythm, no edema, no gallop, no JVD, no murmur , normal peripheral pulses Abdomen / GI: normal bowel sounds, non tender, soft, no organomegaly Extremities: normal inspection, no calf tenderness, normal capillary refill , no pedal edema, normal range of motion Neurologic/Psychiatric: appointment clerk II-XII nml as tested, no motor/sensory deficits , alert, normal mood/affect, normal reflexes, oriented x 3 Skin: normal color, warm/dry, no rash Hospital Course - Acute dyspnea, COPD exacerbation vs pneumonitis, possible aspiration pneumonia appreciate pulmonary consultation treat with Azithromycin, Augmentin, Prednisone while inpatient discharge of quick Prednisone taper Azithromycin 500mg daily x 5 days breathing treatments - Pulmonary nodule: follow up with pulmonary for PFT and PET scan this week - UTI: Coag negative staph, sensitive to Macrobid will treat for 14 days since this is complicated UTI in male - DM: pharmacy consult discharge recommendations are to continue Toujeo at 30 units daily Novolog will increase to 25 units with meals and then taper by 5 units for every 10mg decrease in Prednisone Total Time Spent: Greater than 30 minutes This includes examination of the patient, discharge planning, medication reconciliation, and communication with other providers. Discharge Instructions Please refer to the electronic Patient Visit Report (Discharge Instructions) for additional information. Follow-Up Dr. Mendieta this week Additional Copies To Domo Alanis D.O.; Connor Mendieta MD
== END 2017-04-08 13:45 | disposition home health service (06) | DRG 190 ==
LOC: C.EDB 14:54 → C.MED 18:33 → ENRESERV 19:06
PROVIDERS: ADMIT Internal Medicine; ATTEND Internal Medicine
DX: J44.1 Chronic obstructive pulmonary disease with (acute) exacerbation (principal); J69.0 Pneumonitis due to inhalation of food and vomit; N39.0 Urinary tract infection, site not specified; B95.7 Other staphylococcus as the cause of diseases classified elsewhere; N40.0 Benign prostatic hyperplasia without lower urinary tract symptoms; E11.40 Type 2 diabetes mellitus with diabetic neuropathy, unspecified; M10.9 Gout, unspecified; I10 Essential (primary) hypertension; K74.60 Unspecified cirrhosis of liver; E83.42 Hypomagnesemia; F32.9 Major depressive disorder, single episode, unspecified; F41.9 Anxiety disorder, unspecified; Z66 Do not resuscitate; Z79.4 Long term (current) use of insulin; Z79.82 Long term (current) use of aspirin; Z79.899 Other long term (current) drug therapy; Z86.73 Personal history of transient ischemic attack (TIA), and cerebral infarction without residual deficits; Z87.891 Personal history of nicotine dependence; Z91.041 Radiographic dye allergy status

== ENCOUNTER → 2017-04-17 | Outpatient (CLI) | payer OTHER, MEDICARE ==
[~2017-04-17] MED LIST changes: +ALBINS/ INH; +ALBU18002 INH; +ATOR-24 PO; +AZIT-57 PO; -CIPR-255 PO; +CYNI1000 PO; +DVN80 PO; +FORM1NEB INH; -HYDR-3419 PO; +IBUP-103 PO; +INSPMPHMLG SQ; +MECL1TAB42 PO; +NITR100C43 PO; -NVLG SQ; +PANT40TA PO; +PLMINSR5 INH; +PRD20 PO; +PXL/10 PO; +TAMS0.4C38 PO; -VITAMIN B12 INJ
--- NOTE | 2017-04-17 09:57 | DIAGNOSTIC IMAGING REPORT ---
PET/CT CLINICAL HISTORY: Pulmonary nodule. COMPARISON STUDY: Chest CT dated 04/07/2017. Abdominal CT dated 04/03/2017. TECHNIQUE: One hour following the IV administration of 15.40 mCi of F-18 FDG, PET/CT examination was performed from the orbital meatal line through the bony pelvis. Noncontrast CT is performed for the purposes of anatomic correlation and attenuation correction. Note that this does not reflect a diagnostic CT examination. Images were reviewed on a separate [employer] independent workstation. Fused images were obtained. Standard uptake values reported are maximum values within the region of interest expressed in gm/mL. FINDINGS: PET FINDINGS: Head and neck: There is expected physiologic activity within the visualized brain parenchyma at the skull base and the salivary glands. Thorax: Evaluation of the thorax demonstrates expected physiologic myocardial activity. There is a 1.7 cm irregular/speculated nodule in the right lower lobe seen on image #100. This is FDG avid with a maximum SUV of 3.1. Defibrillator pleural-based nodule at the left apex on image #76 was not demonstrably FDG avid but is too small for PET characterization. There are no pathologically enlarged or FDG avid mediastinal or hilar lymph nodes. Low level FDG activity around the shoulders is related to advanced arthritic change. Abdomen and pelvis: There is expected activity within the liver, spleen, kidneys, renal collecting system, and bladder. Low-level bowel activity is likely within physical limits. Unenhanced CT images: The visualized brain parenchyma at the skull base demonstrates age-related atrophy. The bony orbits appear intact. There are bilateral ocular lens implants. The visualized paranasal sinuses are clear. The mastoid air cells appear pneumatized. The salivary and thyroid glands are normal in appearance. No cervical adenopathy is identified. There is atherosclerotic calcification of the thoracic aorta which is normal in caliber. Gynecomastia is noted. The heart is enlarged and without pericardial effusion. The coronary arteries are densely calcified. No axillary lymphadenopathy is seen. Emphysematous change is observed. No airspace consolidation or pleural effusion is identified. Bibasilar atelectasis is noted. Scattered calcified granulomas are observed. A small hiatal hernia is identified. The liver is cirrhotic in morphology and heterogeneous in attenuation. There is hypertrophy of the left lobe and caudate as well as nodularity of the surface contour. The gallbladder is surgically absent. Mild intrahepatic biliary ductal dilatation is seen. The spleen is enlarged measuring 17.1 cm in length. The unenhanced pancreas is atrophic and grossly unremarkable. No adrenal lesion is identified. The kidneys are atrophic and without hydronephrosis. There is advanced atherosclerotic calcification and mild ectasia of the abdominal aorta. No bowel obstruction is seen. There are postoperative changes from sigmoid colon resection with colocolonic anastomosis. Mild/moderate diverticulosis is noted involving the remainder of the colon. A normal appendix is identified. No intraperitoneal free air or abdominal ascites is seen. The prostate gland is enlarged and heterogeneous. Although decompressed, the bladder wall appears thickened and trabeculated. No abdominal, pelvic, or inguinal lymphadenopathy is seen. The skeletal structures are osteopenic. No lytic or blastic lesions are seen. There is moderate to advanced lumbosacral spondylosis. There is an age indeterminant compression deformity of T12. Advanced arthritic change is seen in the shoulders. IMPRESSION: 1. There is an FDG avid 1.7 cm irregular/spiculated nodule in the right lower lobe. This should be considered primary lung cancer until proven otherwise. 2. A 5 mm pathologically indeterminant but low suspicion pleural-based nodule at the left apex is unchanged from 04/07/2017. This was not demonstrably FDG abdomen but is too small for definitive PET characterization. Attention at follow-up is recommended. 3. No pathologically enlarged or FDG avid mediastinal or hilar lymph nodes are identified. 4. There is no evidence of extrathoracic metastatic disease. 5. Cardiomegaly and emphysematous change. 6. Cirrhotic liver morphology and splenomegaly. 7. Additional findings as above. Electronically signed by: Derrek Silva M.D. 04/17/2017 9:55 AM Dictated Date/Time: 04/17/2017 9:40 AM
== END | disposition home or self-care (01) ==
LOC: C.PET 07:19
PROVIDERS: ATTEND Physician Assistant
DX: J44.9 Chronic obstructive pulmonary disease, unspecified (principal); R91.1 Solitary pulmonary nodule; I51.7 Cardiomegaly; K74.60 Unspecified cirrhosis of liver; R16.1 Splenomegaly, not elsewhere classified

== ENCOUNTER → 2017-04-25 | Outpatient (CLI) | payer OTHER, MEDICARE ==
[~2017-04-25] MED LIST changes: -AZIT-57 PO; -DVN80 PO; -MAGN400T6 PO; -MECL1TAB42 PO; -NITR100C43 PO; -PRD20 PO
--- NOTE | 2017-04-26 08:51 | PULMONARY FUNCTION TEST ---
CLINICAL DATA: A 76-year-old male with a height of 69 inches and a weight of 250 pounds referred for evaluation of COPD prior to surgery. Spirometry pre- and post-bronchodilator, lung volumes, and DLCO were performed. FINDINGS: Pre-bronchodilator spirometry was within normal limits. FVC was 98% of predicted. FEV1 was 98% of predicted. FEF 25-75 was 80% of predicted. There was no significant improvement after inhaled bronchodilator. Lung volumes were normal with a residual volume of 98% of predicted. DLCO was normal at 82% of predicted. IMPRESSION: Normal baseline spirometry with no improvement after inhaled bronchodilator. Normal lung volumes. Normal DLCO. MTDD
== END | disposition home or self-care (01) ==
LOC: C.RC 12:26
PROVIDERS: ATTEND Physician Assistant
DX: J44.9 Chronic obstructive pulmonary disease, unspecified (principal); R91.1 Solitary pulmonary nodule

== ENCOUNTER 2017-05-10 09:41 | Inpatient (IN) | payer OTHER, MEDICARE ==
[2017-04-24 15:57] VITALS: BMI 37.0
[2017-05-10] VITALS (11 sets, daily range): BP systolic 70–118; BP diastolic 47–80; PULSE 62–90; TEMP 36.3–36.6; O2SAT 95–99; Ht 175.3 cm; Wt 116.1 kg
[~2017-05-10] VITALS: Ht 175.3 cm; Wt 116.1 kg
[~2017-05-10 09:41] MED LIST changes: -LACT10SO17 PO; +LACT10SO3 PO
[2017-05-10] MEDS ORDERED: KETOROLAC TROMETHAMINE 15 MG/ML VIAL IV. PRN (12:30)
[2017-05-10] MEDS ORDERED: ATROPINE SULFATE 0.1 MG/ML 5ML SYR IV PRN ×2 (12:30→17:00)
[2017-05-10] MEDS ORDERED: HYDROmorphone INJ 0.5 MG/0.5 ML SYR IV PRN (12:30)
[2017-05-10] MEDS ORDERED: ONDANSETRON INJ 2 MG/ML 2 ML VIAL IV PRN ×3 (12:30→17:45)
[2017-05-10] MEDS ORDERED: BUPIVACAINE LIPOSOME 1/3% 266 MG/20 ML VIAL INFIL ONE ×2 (12:31→13:30)
[2017-05-10] MEDS ORDERED: SODIUM CHLORIDE 0.9% PF 50 ML VIAL ONE ×2 (12:31→13:30)
[2017-05-10] MEDS ORDERED: FENTANYL CITRATE INJ 50 MCG/1 ML 2 ML VIAL ONE ×2 (12:34→15:17)
[2017-05-10] MEDS ORDERED: PROPOFOL IV EMULSION 10 MG/ML 20 ML VIAL IV ONE (12:34)
[2017-05-10] MEDS ORDERED: ROCURONIUM BROMIDE 10 MG/ML 5 ML VIAL IV ONE ×2 (12:34→16:20)
[2017-05-10] MEDS ORDERED: ONDANSETRON INJ 2 MG/ML 2 ML VIAL ONE (12:34)
[2017-05-10] MEDS ORDERED: LIDOCAINE HCL 2% 2 ML VIAL (20MG/ML) ONE (12:34)
[2017-05-10] MEDS ORDERED: CEFAZOLIN SOD 1 GM VIAL ONE (13:03)
[2017-05-10] MEDS ORDERED: EpHEDrine SULFATE 50MG/5ML SYR ONE (14:50)
[2017-05-10] MEDS ORDERED: GLYCOPYRROLATE INJ 0.2 MG/ML VIAL ONE ×2 (14:50→17:15)
[2017-05-10] MEDS ORDERED: DEXAMETHASONE SOD INJ 4 MG/ML VIAL ONE (15:05)
[2017-05-10] MEDS ORDERED: EpHEDrine SULFATE INJ 50 MG/ML AMP IV PRN (17:00)
[2017-05-10] MEDS ORDERED: PHENYLEPHRINE 100MCG/ML 5ML SYR IV PRN (17:00)
[2017-05-10] MEDS ORDERED: NEOSTIGMINE METHYLSULFATE 5 MG/5 ML SYR ONE (17:15)
[2017-05-10] MEDS ORDERED: ALBUTEROL 0.083% NEBU SOLN 3 ML VIAL INH PRN (17:45)
[2017-05-10] MEDS ORDERED: NITROGLYCERIN 0.4 MG SL PER TAB CHARGE UT PRN (17:45)
[2017-05-10] MEDS ORDERED: BUDESONIDE 0.5 MG/2 ML VIAL (PULMICORT) INH PRN (17:45)
[2017-05-10] MEDS ORDERED: FORMOTEROL FUMA NEBULIZER SOLN 20 MCG/2 ML VIAL INH PRN (17:45)
[2017-05-10] MEDS ORDERED: ALBUTEROL HFA 8 GM INHALER INH PRN (17:45)
[2017-05-10] MEDS ORDERED: CEFAZOLIN IV 2,000 MG in DEXTROSE 5% 50ML 100 ML IV SCH (17:45)
--- NOTE | 2017-05-10 18:10 | DIAGNOSTIC IMAGING REPORT ---
CHEST ONE VIEW PORTABLE CLINICAL HISTORY: 76 years-old Male presenting with RLL. TECHNIQUE: Portable upright AP view of the chest was obtained. COMPARISON: 04/06/2017 and CTA from 04/07/2017. FINDINGS: There has been interval placement of a large bore right pleural drain which terminates in the mid comparison mediastinal right hemithorax. Atherosclerosis of aortic arch. Mildly low lung volumes with resultant apparent enlargement of the cardiac silhouette. Hypoventilatory changes also result in prominence of the paulina. Interval development of bandlike opacity at the right lung base with a small right pleural effusion. A trace right apical pneumothorax is likely present. Trace blunting of the left costophrenic angle may also be present though the left lung is grossly clear. Extensive degenerative changes of the right glenohumeral joint with superior subluxation of the humeral head and extensive loose bodies and/or osteophytosis. Upper abdomen normal. IMPRESSION: 1. Large bore right pleural drain terminates in the mid right paramediastinal hemithorax. 2. Trace right apical pneumothorax. 3. Right basilar atelectasis and small effusion. 4. Possible trace left pleural effusion. Electronically signed by: Chon West M.D. 05/10/2017 6:08 PM Dictated Date/Time: 05/10/2017 6:06 PM
[2017-05-10] MEDS: HYDROmorphone INJ 2 MG/ML SYR/VIAL IV PRN ×4 (18:15→18:41)
--- NOTE | 2017-05-10 18:51 | Anesthesiology Progress Note ---
Anesthesia Post Op Note Date & Time May 10, 2017 at 18:51 Vital Signs Pain Intensity: 4 Vital Signs Past 12 Hours Date Time Temp Pulse Resp B/P (MAP) Pulse Ox O2 Delivery O2 Flow Rate FiO2 05/10/17 18:40 67 16 106/68 97 Nasal Cannula 2 05/10/17 18:30 66 13 115/73 97 Nasal Cannula 2 05/10/17 18:20 62 15 121/72 97 Nasal Cannula 3 05/10/17 18:10 65 16 123/74 100 Oxymask 10 05/10/17 18:00 65 20 118/63 100 Oxymask 10 05/10/17 17:51 36.3 65 16 120/71 100 Oxymask 10 05/10/17 10:18 36.6 62 18 118/80 97 Room Air Notes Mental Status: alert / awake / arousable, participated in evaluation Pt Amnestic to Procedure: Yes Nausea / Vomiting: adequately controlled Pain: adequately controlled Airway Patency, RR, SpO2: stable & adequate BP & HR: stable & adequate Hydration State: stable & adequate Anesthetic Complications: no major complications apparent
--- NOTE | 2017-05-10 19:17 | OPERATIVE REPORT ---
DATE OF OPERATION: 05/10/2017 PREOPERATIVE DIAGNOSIS: Hypermetabolic mass, right lower lobe. POSTOPERATIVE DIAGNOSIS: Nonsmall cell lung carcinoma, right lower lobe. PROCEDURE: 1. Robot-assisted thoracoscopic wedge resection right lower lobe mass. 2. Limited thoracotomy with right lower lobectomy and mediastinal lymph node dissection. SURGEON: Bonifacio Liang MD. RESPIRATORY MANAGER: RANJITH White, (Mr. Frost was present for the entire case and was at the bedside while I was at console for the robotic portion and he was the respiratory equipment assistant when we opened. He closed the incisions at the end of the case). ANESTHESIA: General anesthesia with endotracheal intubation using a double lumen tube. SPECIFICS OF PROCEDURE: This is a very nice 76-year-old male with history of cigarette smoking, was found to have a mass in his right lower lobe which was hypermetabolic. I could not determine the etiology of this mass preoperatively given its location. I felt we may be able to do a wedge resection, but also it was going to be difficult to localize. On 05/10/2017, the patient was brought to the operating room and I performed a robot-assisted thoracoscopic wedge resection of mass turned out to be a nonsmall cell lung carcinoma. I then proceeded to dissect out the hilum, but the lymph nodes were so stuck to the arteries. They were very weak. We did not progress and I finally felt we should open to expedite the case. We made a small anterior thoracotomy sparing latissimus dorsi muscle. He tolerated it well and was extubated in the room. DESCRIPTION OF PROCEDURE: The patient was brought to the operating room and laid in supine position. General anesthesia induced and endotracheal intubation performed with double lumen tube. The patient was placed in the left lateral decubitus position. His right chest prepped and draped in usual sterile fashion. The eight interspace was chosen and we went ahead and placed ports in the anterior portion and then a camera port and a 5 mm posterior port and then an another 8 mm port between the camera port and the posterior port in the eighth interspace. Upon entering, it was seen that the diaphragm was riding quite high. We put in our systems port in and that was actually close to our camera port and our right-sided 8 mm port. We then proceeded to inspect the area and appeared that he had good fissures. I was unable to see the mass, I pulled it up immediately after freeing up the fissure between the lower lobe and the middle lobe and then upon pulling this up, I then used a robotic stapler to remove this mass. It was delivered off the field in an Endobag. I then grasped this and removed it from the field and sent this off for frozen section. We actually sent off 2 segments. Frozen section came back as being a nonsmall cell lung carcinoma. I then freed up the inferior pulmonary ligament. I started dissecting out the artery, it came apart quite quickly in the fissure; however, the lymph nodes were quite adherent. After struggling with this for a while, I finally elected to open. A small thoracotomy was made anterior of the platysmus dorsi muscle, at about the fifth interspace and this brought us directly down on to the fissure. It was actually very difficult to dissect this out. With meticulous dissection, finally I ended up having it dissected it out and then took down the inferior pulmonary ligament. I did not see a level 8 or 9 node. I also did not see a level 7 even though I dissected out the bifurcation. I biopsied several level 10, level 11, level 2 and level 4 lymph nodes and also, level 8 and level 12 nodes. These were very difficult and very stuck and I was able to finally was then opened and was able to identify the middle lobe bronchus which came off below the bifurcation into the superior segment and the basilar segments of the lower lobe. For this reason, I then took the artery in 2 different donal firings and to stay below the middle lobe takeoff. It was a very difficult dissection, apparently was able to fire a stapler posteriorly to complete the fissure. We then swept the lymph nodes off with the specimen. I then fired an Endo-CABRERA stapler distal to the takeoff of the middle lobe and the frozen section of the margin was negative for carcinoma. I then took out the level 2 and level 4 lymph nodes. I looked for level 7 and really did not have much in the level 7 or even the 8 and 9 nodes. We thoroughly irrigated this out. He had a tiny air leak at the conclusion of the case. 266 mg of Exparel and 20 mL of solution was mixed with 40 mg of saline for 60 mL total and then we blocked his intercostal nerves from the 2nd to the 11th rib by filling the interspace. We then inserted chest tubes around the anterior thoracoscopy ports and closed the small thoracotomy with two #1 PDS sutures and then closed the serratus muscle with 0 Vicryl in a running continuous fashion. Monocryl was used to close the skin incision of the thoracoscopy port and the thoracotomy incision. He tolerated it well and was extubated in the room. I attest to the content of the Intraoperative Record and any orders documented therein. Any exception s are noted below.
[2017-05-10] MEDS ORDERED: GLUCOSE 10 TABS/TUBE PO PRN (20:45)
[2017-05-10] MEDS ORDERED: GLUCAGON FOR INJ 1 MG VIAL SQ PRN (20:45)
[2017-05-10] MEDS ORDERED: GLUCOSE 40% GEL 15 GM TUBE PO PRN (20:45)
[2017-05-10] MEDS ORDERED: DEXTROSE 50% 50 ML SYR IV PRN (20:45)
[2017-05-10] MEDS: ACETAMINOPHEN IV 1,000 MG in EMPTY BAG 0 ML IV SCH ×2 (21:00→21:12)
[2017-05-10] MEDS: CARVEDILOL 3.125 MG TAB PO SCH (21:00)
[2017-05-10] MEDS ORDERED: INSULIN GLARGINE SOLOSTAR 100 UNITS/ML 3 ML PEN SC SCH (21:00)
[2017-05-10] MEDS: CEFAZOLIN IV 2,000 MG in SYRINGE 0 ML IV SCH (21:12)
[2017-05-10] MEDS: SODIUM CHLORIDE 0.9% 1000ML 1,000 ML IV SCH (21:12)
[2017-05-10] MEDS: DOCUSATE SODIUM 100 MG CAP PO SCH (21:12)
[2017-05-10] MEDS: PANTOprazole SOD 40 MG TAB PO SCH (21:13)
[2017-05-10] MEDS: GABAPENTIN 300 MG CAP PO SCH (21:13)
[2017-05-10] MEDS: TAMSULOSIN HCL 0.4 MG CAP PO SCH (21:13)
[2017-05-10] MEDS: ATORVASTATIN 40 MG TAB PO SCH (21:13)
[2017-05-10] MEDS: THIAMINE HCL 100 MG TAB PO SCH (21:13)
[2017-05-10] MEDS: INSULIN ASPART 100 UNITS/ML 3 ML PEN SC SCH (21:36)
[2017-05-10] MEDS: METOCLOPRAMIDE HCL INJ 5 MG/ML 2 ML VIAL IV. SCH (23:09)
[2017-05-10] MEDS: KETOROLAC TROMETHAMINE 15 MG/ML VIAL IV. SCH (23:10)
[2017-05-10] MEDS ORDERED: SODIUM CHLORIDE 0.9% 500ML 500 ML IV SCH (23:45)
[2017-05-10] MEDS ORDERED: NURSING VERBAL MED ORDER ONE (23:45)
[2017-05-11] VITALS (15 sets, daily range): BP systolic 78–121; BP diastolic 48–72; PULSE 75–93; TEMP 36.4–36.8; O2SAT 91–97
[2017-05-11] MEDS ORDERED: NURSING VERBAL MED ORDER ONE ×3 (03:30→08:15)
--- NOTE | 2017-05-11 03:30 | NUR ---
A: Dr. Liang called to check on pt. BP's still low, 81/51 pulse 93. Pt bladder scanned around 0200 for 118mL. He ordered a second bolus of 500mL NSS and increased continuous fluid rate to 100mL/hr. Labs drawn early, H&H 10.6 & 31.2.
[2017-05-11] MEDS ORDERED: SODIUM CHLORIDE 0.9% 500ML 500 ML IV SCH ×3 (03:45→09:15)
[2017-05-11 03:55] LABS: HEMATOCRIT 31.2 % (42-52); HEMOGLOBIN 10.6 g/dL (14.0-18.0); MEAN CELL VOLUME 91.8 fL (80-100); MEAN CORPUSCULAR HEMOGLOBIN 31.2 pg (25-34); MEAN PLATELET VOLUME 9.2 fL (7.4-10.4); PLATELET COUNT 101 K/uL (130-400); RED CELL DISTRIBUTION WIDTH CV 14.8 % (11.5-14.5); RED CELL DISTRIBUTION WIDTH SD 49.8 fL (36.4-46.3); WHITE BLOOD COUNT 9.51 K/uL (4.8-10.8)
[2017-05-11 04:14] LABS: CALCIUM 8.4 mg/dl (8.5-10.1); CREATININE 2.13 mg/dl (0.60-1.40); POTASSIUM 4.8 mmol/L (3.5-5.1)
[2017-05-11] MEDS: CEFAZOLIN IV 2,000 MG in SYRINGE 0 ML IV SCH ×2 (04:23→13:22)
[2017-05-11] MEDS: ACETAMINOPHEN IV 1,000 MG in EMPTY BAG 0 ML IV SCH ×3 (04:25→21:16)
[2017-05-11 04:42] LABS: BASO % 0.1 %; BASO ABS # 0.01 K/uL (0-0.2); IG# 0.03 K/uL (0.00-0.02); LYMPH % 10.6 %; LYMPH ABS # 1.01 K/uL (1.2-3.4); MONO % 8.7 %; MONO ABS # 0.83 K/uL (0.11-0.59); NEUT % 80.3 %; NEUT ABS # 7.63 K/uL (1.4-6.5)
--- NOTE | 2017-05-11 05:30 | NUR ---
A: Stood patient at bedside, he was doing well until he became dizzy, he sat back down on the bed and rolled onto his back. He was able to pull himself back up, but was dazed for a minute. At this time BP was 102/66 & pulse 83. 95% on 1L nasal cannula. Chest tube remains intact. Patient is now lying back down, states he is feeling better but his right arm hurts. He thinks it is just pain from the chest tube. Still unable to void, states he does not feel the urge. Pending bladder scan. Bladder scanner currently not working, must obtain from PCU. 3rd Bolus of NSS infusing, will inform oncoming nurse.
[2017-05-11] MEDS: KETOROLAC TROMETHAMINE 15 MG/ML VIAL IV. SCH (05:32)
[2017-05-11] MEDS: LEVOTHYROXINE 50 MCG TAB PO SCH (05:32)
[2017-05-11] MEDS: METOCLOPRAMIDE HCL INJ 5 MG/ML 2 ML VIAL IV. SCH ×2 (05:32→13:22)
--- NOTE | 2017-05-11 06:55 | Clinical Documentation Query ---
CLINICAL DOCUMENTATION QUERY Fili, 76-Y/O male who has undergone robot assisted RLL lobectomy and mediastinal lymph node dissection. POD#1 labs reveal BUN 34, Creatinine 2.13, GFR 29.4. Review of patient's historical laboratory values show baseline creatinine around 1.3-1.5 and baseline GFR 44-53. He has been hypotensive since surgery with most MAP's <65. In your clinical opinion is this patient being managed for: ( X ) MIO in setting of hypotension treated with IVF boluses and PRP. ( ) Not Agree ( ) Other explanation of clinical findings (Please Explain) ( ) Unable to determine (Please Define) ( ) Need to Discuss The medical record reflects the following clinical findings, treatment, and risk factors. Clinical Indicators: As above. Hypotension since surgery 70-80's/50-60's with MAP's <65. Low urine output 240mls in 8hrs. 300 EBL and 490ml's of drainage from Chest tube since surgery. Treatment: IVF's, PRP, Risk Factors: Age, surgery, hypotension Please clarify and document your clinical opinion in the progress notes and discharge summary. Terms such as "probable", "suspected", "likely", "questionable", "possible", or "still to be ruled out" are acceptable. IF IN AGREEMENT, YOU MUST DOCUMENT ABOVE DIAGNOSTIC STATEMENT IN DAILY PROGRESS NOTES AND DISCHARGE SUMMARY. This document is not part of the patient's record. Thank You, Fili Foreman, RN [phone]
--- NOTE | 2017-05-11 06:57 | DIAGNOSTIC IMAGING REPORT ---
CHEST ONE VIEW PORTABLE CLINICAL HISTORY: RLL COMPARISON STUDY: Chest radiograph May 10, 2017 and PET/CT April 17, 2017. FINDINGS: A trace right apical pneumothorax is unchanged. Right basilar chest tube remains in place. A right pleural effusion has increased. Right paramediastinal opacity is increased. Right lower lung airspace opacity has increased. There is pulmonary vascular congestion with possible mild pulmonary edema. Cardiomegaly is unchanged. IMPRESSION: 1. No change in a trace right pneumothorax. Right basilar chest tube in place. Increasing right paramediastinal opacity 2. Increasing right lower lung opacity which could reflect consolidation, atelectasis or asymmetric pulmonary edema. 3. Increase in pulmonary vascular congestion with suspected mild pulmonary edema. Electronically signed by: Bryn Kathleen M.D. 05/11/2017 6:56 AM Dictated Date/Time: 05/11/2017 6:52 AM
--- NOTE | 2017-05-11 08:16 | SURGERY PROGRESS NOTE ---
DATE: 05/11/2017 SUBJECTIVE: Mr. Bonner was seen today. He is on room air and states that he feels "fine" even though he is thirsty. He has been drinking quite a bit of fluid. His urine output was quite poor. He put out 250 mL in the recovery room last night. At 7:00, his Briggs was removed and he really did not make urine overnight. I gave him fluid boluses and then we put a Briggs catheter for about 150 mL this morning. His creatinine did jump. His blood pressure has also been relatively low. It was as low as the 70s, but responded to fluids and is up to as high as 102/66. He has been afebrile. His heart rate has been remarkably stable in the 80s. The patient's lungs are relatively clear. He has decreased breath sounds on the left. He has a very good cough. His mucous membranes orally are dry. He has no wheezing. He has a regular rate and rhythm of his heart. His abdomen is obese, soft. Briggs catheter is draining concentrated urine. His SCDs are in place. Chest tube has no air leak. He has drained a total of 240 mL of fluid. In reviewing his labs, his creatinine has jumped from 2.13 with a BUN of 34. He is not acidotic, carbon dioxide is 23. Blood sugars have been fairly well controlled at 102 to 185. His white count is normal at 9510, hemoglobin stable at 10.6. Platelet count stable at 101,000. His chest x-ray was a bit concerning because of some opacity in the right base. His lungs fully expanded. ASSESSMENT AND PLAN: Postop day #1, status post right lower lobectomy with mediastinal lymph node dissection for a nonsmall cell lung carcinoma. He is still dry I believe despite the findings on the x-ray. I am going to continue his IV fluids and continue to encourage p.o. intake. We will get him up ambulating. We will leave the Briggs catheter and the chest tube as well the IV in for today. I am going to check labs later this afternoon. If I am unhappy with the way he looks this afternoon, we may become more aggressive and check an echocardiogram and perhaps move him to the unit, but at this point I think he is stable to be on the floor.
[2017-05-11] MEDS: DOCUSATE SODIUM 100 MG CAP PO SCH ×2 (08:55→21:25)
[2017-05-11] MEDS: ALLOPURINOL 300 MG TAB PO SCH (08:55)
[2017-05-11] MEDS: CHOLECALCIFEROL 1000 INTER.UNIT TAB PO SCH (08:55)
[2017-05-11] MEDS: ASPIRIN 81 MG ECTAB PO SCH (08:56)
[2017-05-11] MEDS: THIAMINE HCL 100 MG TAB PO SCH ×2 (08:56→21:25)
[2017-05-11] MEDS: CALCIUM POLYCARBOPHIL 1 TAB PO SCH (08:56)
[2017-05-11] MEDS: PAROXETINE 20 MG TAB PO SCH (08:56)
[2017-05-11] MEDS ORDERED: ENOXAPARIN 40 MG/0.4 ML SYR SQ SCH (09:00)
[2017-05-11] MEDS: CARVEDILOL 3.125 MG TAB PO SCH ×2 (09:02→21:26)
[2017-05-11] MEDS: INSULIN ASPART 100 UNITS/ML 3 ML PEN SC SCH ×4 (09:19→21:00)
--- NOTE | 2017-05-11 10:53 | NUR ---
Pt identified as a case find as having home health. Spoke with pt. pt lives at home alone in a 1 story home. He has 3 steps to enter his home. pt states that he occasionally uses a cane for ambulation. He is active with [facility]. He states his family can help him at home. He plans to return home with [facility] at discharge. Referral faxed to [facility]. Case Management will follow.
[2017-05-11] MEDS: SODIUM CHLORIDE 0.9% 1000ML 1,000 ML IV SCH ×2 (10:59→21:05)
[2017-05-11] MEDS: LACTULOSE SYRUP 20 GM/30 ML UDC PO SCH (10:59)
--- NOTE | 2017-05-11 12:24 | NUR ---
ID Note: Alert and oriented x4. Blood pressure after 500CC bolus increased to 110/70. IV fluids infusing per md order. Dressing changed to chest tube site per md order. OOB to chair, denied any dizziness. Briggs intact and patent. Pain being controlled by routine pain medication. Tolerating a type 1 diabetic diet, BSG AC/HS. Plan to return home with home health at discharge, date uncertain. Will continue to monitor.
--- NOTE | 2017-05-11 13:17 | SURGERY PROGRESS NOTE ---
DATE: 05/11/2017 SUBJECTIVE: Mr. Bonner was seen at 1:00 this afternoon. His urine output has picked up considerably. He has made 200 mL the last 4-5 hours. It is much less concentrated. He has been drinking quite a bit. He is taken steps in the room. He is eating well. He is bleeding from his chest tube site. I anesthetized this and put a 2-0 silk pursestring around this to stop this. I am a bit concerned because there is more ecchymosis than I normally see around his incisions. He is not putting out a lot from his chest tube, but he is putting out dark blood. I am going to hold his Lovenox and I am going to get him up and I am going to check a PT/INR and fibrinogen levels. I am a bit concerned as his platelet count was 65,000 preop, but it is 101,000 today and appeared to be a chronic process. I want to see how his labs look this afternoon. He looks much better. PATRICIA
[2017-05-11 14:54] LABS: INR 1.1 (0.9-1.1)
[2017-05-11 16:03] LABS: HEMATOCRIT 26.2 % (42-52); HEMOGLOBIN 8.9 g/dL (14.0-18.0); MEAN CELL VOLUME 90.7 fL (80-100); MEAN CORPUSCULAR HEMOGLOBIN 30.8 pg (25-34); RED CELL DISTRIBUTION WIDTH CV 14.9 % (11.5-14.5); RED CELL DISTRIBUTION WIDTH SD 48.8 fL (36.4-46.3); WHITE BLOOD COUNT 8.21 K/uL (4.8-10.8)
--- NOTE | 2017-05-11 16:05 | DIAGNOSTIC IMAGING REPORT ---
CHEST ONE VIEW PORTABLE HISTORY: Right lung nodule. Postop. lobectomy COMPARISON: Chest 05/11/2017. FINDINGS: Tiny right pneumothorax persists. Right-sided chest tube terminates in the right lung base. The heart remains mildly enlarged. Hazy airspace opacities in the trace right pleural effusion have improved. Mild interstitial thickening persists. IMPRESSION: 1. Tiny right apical pneumothorax, unchanged. 2. Improved aeration within the right lung base. 3. Right chest tube remains unchanged in position. Electronically signed by: Baldemar Temple M.D. 05/11/2017 4:03 PM Dictated Date/Time: 05/11/2017 4:01 PM
[2017-05-11 16:34] LABS: POTASSIUM 4.5 mmol/L (3.5-5.1)
[2017-05-11 16:36] LABS: MEAN PLATELET VOLUME 8.9 fL (7.4-10.4); PLATELET COUNT 94 K/uL (130-400)
[2017-05-11] MEDS: GABAPENTIN 300 MG CAP PO SCH (21:25)
[2017-05-11] MEDS: INSULIN GLARGINE SOLOSTAR 100 UNITS/ML 3 ML PEN SC SCH (21:25)
[2017-05-11] MEDS: PANTOprazole SOD 40 MG TAB PO SCH (21:26)
[2017-05-11] MEDS: TAMSULOSIN HCL 0.4 MG CAP PO SCH (21:26)
[2017-05-11] MEDS: ATORVASTATIN 40 MG TAB PO SCH (21:26)
[2017-05-12] MEDS: MoRPHine SULFATE 2 MG/ML CARP IV PRN ×2 (00:33→16:51)
[2017-05-12 03:07] VITALS: BP 98/64; PULSE 76; TEMP 36.8; O2SAT 95
[2017-05-12] MEDS: SODIUM CHLORIDE 0.9% 1000ML 1,000 ML IV SCH (04:53)
[2017-05-12] MEDS: ACETAMINOPHEN IV 1,000 MG in EMPTY BAG 0 ML IV SCH (04:54)
[2017-05-12] MEDS: LEVOTHYROXINE 50 MCG TAB PO SCH (05:49)
--- NOTE | 2017-05-12 07:19 | DIAGNOSTIC IMAGING REPORT ---
CHEST ONE VIEW PORTABLE CLINICAL HISTORY: Lobectomy. COMPARISON STUDY: Chest radiograph May 11, 2017 at 3:56 PM. FINDINGS: A right basilar chest tube is in place. No pneumothorax is visualized. The basilar opacity persists. Cardiomegaly is unchanged. There is no evidence for overt edema. There is pulmonary vascular congestion. IMPRESSION: 1. Right basilar chest tube in place. No pneumothorax. 2. Persistent right basilar opacity with pulmonary vascular congestion. No overt pulmonary edema. Electronically signed by: Bryn Kathleen M.D. 05/12/2017 7:17 AM Dictated Date/Time: 05/12/2017 7:12 AM
[2017-05-12 07:22] VITALS: BP 105/68; PULSE 74; TEMP 36.5; O2SAT 93
[2017-05-12 07:47] LABS: HEMOGLOBIN 8.3 g/dL (14.0-18.0); MEAN CELL VOLUME 89.6 fL (80-100); RED CELL DISTRIBUTION WIDTH SD 48.8 fL (36.4-46.3); WHITE BLOOD COUNT 6.91 K/uL (4.8-10.8)
[2017-05-12 07:56] LABS: MEAN CORPUSCULAR HGB CONC 34.6 g/dl (32-36); MEAN PLATELET VOLUME 8.4 fL (7.4-10.4); PLATELET COUNT 76 K/uL (130-400)
[2017-05-12 08:04] LABS: CALCIUM 8.5 mg/dl (8.5-10.1); CREATININE 1.9 mg/dl (0.60-1.40); POTASSIUM 4.2 mmol/L (3.5-5.1)
[2017-05-12 08:06] LABS: BASO % 0.4 %; BASO ABS # 0.03 K/uL (0-0.2); EOS % 1.6 %; EOS ABS # 0.11 K/uL (0-0.5); IG# 0.03 K/uL (0.00-0.02); LYMPH % 23.2 %; MONO % 10.3 %; MONO ABS # 0.71 K/uL (0.11-0.59); NEUT % 64.1 %; NEUT ABS # 4.43 K/uL (1.4-6.5)
--- NOTE | 2017-05-12 08:38 | SURGERY PROGRESS NOTE ---
DATE: 05/12/2017 Mr. Bonner looks much better today. He has been ambulating in the hallway. His Briggs is draining clear urine, he put out 1800 mL yesterday. I have stopped his IVs. I have discontinued his Briggs. I am still a bit concerned about the bloody drainage from his chest tube but it has been very little. He has only put out 20 mL in the last shift. I am going to give him 1 more day and then pull this catheter out tomorrow in all likelihood and let him go home. His hemoglobin is 8.3. His BUN is up to 41 but his creatinine is down to 1.9. His blood sugars have been well controlled. His blood pressure is better with a mean arterial pressure consistently above 75. We will have him ambulate more. At this point, I think he has settled down hematologically. We will pull his chest tube out and hopefully get him out tomorrow. His pathology is not back yet. I think there has been a problem with his platelet function, it may be due to his aspirin, and his thrombocytopenia is a bit bothersome, but I think we have weathered this storm, and if things look good tomorrow, we will look to get him home.
[2017-05-12] MEDS: INSULIN ASPART 100 UNITS/ML 3 ML PEN SC SCH ×4 (08:43→21:15)
[2017-05-12] MEDS: LACTULOSE SYRUP 20 GM/30 ML UDC PO SCH (08:46)
[2017-05-12] MEDS: THIAMINE HCL 100 MG TAB PO SCH ×2 (08:47→21:19)
[2017-05-12] MEDS: CARVEDILOL 3.125 MG TAB PO SCH ×2 (08:47→21:20)
[2017-05-12] MEDS: ALLOPURINOL 300 MG TAB PO SCH (08:48)
[2017-05-12] MEDS: CHOLECALCIFEROL 1000 INTER.UNIT TAB PO SCH (08:48)
[2017-05-12] MEDS: ASPIRIN 81 MG ECTAB PO SCH (08:48)
[2017-05-12] MEDS: DOCUSATE SODIUM 100 MG CAP PO SCH ×2 (08:48→21:00)
[2017-05-12] MEDS: CALCIUM POLYCARBOPHIL 1 TAB PO SCH (08:48)
[2017-05-12] MEDS: PAROXETINE 20 MG TAB PO SCH (08:49)
--- NOTE | 2017-05-12 09:29 | NUR ---
Reviewed chart. Spoke with Pt. He is hoping to be discharged tomorrow. He lives at home alone but states he has family that live close and can help him. He has a first floor set up at home. pt has an outstanding referral to [facility]. case Management will follow.
--- NOTE | 2017-05-12 14:00 | NUR ---
The patient has demonstrated progress toward goals and readiness for discharge as demonstrated by: Patient alert and oriented x4, vitals stable. Pt denies c/o pain. Chest tube alternating suction and water seal q4h per order. Dressing dry and intact to R chest, no crepitus or air leak noted. Pt oob with assist of one and use of walker. Plans for discharge with home health, possibly Monday.
[2017-05-12 15:01] VITALS: BP 147/84; PULSE 86; TEMP 36.5; O2SAT 96
[2017-05-12] MEDS ORDERED: NURSING VERBAL MED ORDER ONE ×2 (18:15→19:45)
[2017-05-12] MEDS: ACETAMINOPHEN IV 1000MG/100ML IV PRN (18:44)
[2017-05-12] MEDS ORDERED: OXYCODONE HCL IR 5 MG TAB (IMMEDIATE RELEASE) PO PRN (19:45)
[2017-05-12 19:47] VITALS: O2SAT 96
[2017-05-12 19:48] VITALS: O2SAT 94
[2017-05-12] MEDS: INSULIN GLARGINE SOLOSTAR 100 UNITS/ML 3 ML PEN SC SCH (21:15)
[2017-05-12] MEDS: ATORVASTATIN 40 MG TAB PO SCH (21:18)
[2017-05-12] MEDS: TAMSULOSIN HCL 0.4 MG CAP PO SCH (21:19)
[2017-05-12] MEDS: GABAPENTIN 300 MG CAP PO SCH (21:19)
[2017-05-12] MEDS: PANTOprazole SOD 40 MG TAB PO SCH (21:19)
[2017-05-12 23:15] VITALS: BP 118/71; PULSE 76; TEMP 36.7; O2SAT 96
[2017-05-13] MEDS: LEVOTHYROXINE 50 MCG TAB PO SCH (05:54)
[2017-05-13 06:08] LABS: HEMATOCRIT 21.8 % (42-52); HEMOGLOBIN 7.6 g/dL (14.0-18.0); MEAN CELL VOLUME 90.5 fL (80-100); MEAN CORPUSCULAR HEMOGLOBIN 31.5 pg (25-34); MEAN CORPUSCULAR HGB CONC 34.9 g/dl (32-36); RED CELL DISTRIBUTION WIDTH SD 49.3 fL (36.4-46.3); WHITE BLOOD COUNT 5.34 K/uL (4.8-10.8)
[2017-05-13 06:13] LABS: PLATELET COUNT 69 K/uL (130-400)
[2017-05-13 06:26] VITALS: O2SAT 97
[2017-05-13 06:41] LABS: CALCIUM 9.1 mg/dl (8.5-10.1); CREATININE 1.42 mg/dl (0.60-1.40); POTASSIUM 4.2 mmol/L (3.5-5.1)
[2017-05-13 07:12] VITALS: BP 101/63; PULSE 69; TEMP 36.8; O2SAT 97
--- NOTE | 2017-05-13 08:04 | DIAGNOSTIC IMAGING REPORT ---
CHEST ONE VIEW PORTABLE HISTORY: Postoperative changes. lobectomy COMPARISON: Chest 05/12/2017. FINDINGS: Right basilar chest tube remains unchanged in position. Small right pneumothorax with a pleural gap of 9 mm. Small right pleural effusion and bibasilar linear densities are cysts. The heart remains mildly enlarged. IMPRESSION: 1. Small right pneumothorax. 2. Right basilar chest tube and small right pleural effusion/opacity are unchanged Electronically signed by: Baldemar Temple M.D. 05/13/2017 8:03 AM Dictated Date/Time: 05/13/2017 8:02 AM
[2017-05-13] MEDS: LACTULOSE SYRUP 20 GM/30 ML UDC PO SCH (09:00)
[2017-05-13] MEDS: ASPIRIN 81 MG ECTAB PO SCH (09:16)
[2017-05-13] MEDS: DOCUSATE SODIUM 100 MG CAP PO SCH ×2 (09:16→21:09)
[2017-05-13] MEDS: PAROXETINE 20 MG TAB PO SCH (09:16)
[2017-05-13] MEDS: CALCIUM POLYCARBOPHIL 1 TAB PO SCH (09:16)
[2017-05-13] MEDS: CHOLECALCIFEROL 1000 INTER.UNIT TAB PO SCH (09:17)
[2017-05-13] MEDS: ALLOPURINOL 300 MG TAB PO SCH (09:17)
[2017-05-13] MEDS: THIAMINE HCL 100 MG TAB PO SCH ×2 (09:17→21:10)
[2017-05-13] MEDS: INSULIN ASPART 100 UNITS/ML 3 ML PEN SC SCH ×4 (09:28→21:34)
[2017-05-13] MEDS: CARVEDILOL 3.125 MG TAB PO SCH ×2 (09:29→21:10)
[2017-05-13] MEDS ORDERED: FUROSEMIDE INJ 20 MG in SYRINGE 0 ML IV SCH (10:15)
[2017-05-13] MEDS: ACETAMINOPHEN IV 1000MG/100ML IV PRN ×2 (10:19→21:36)
--- NOTE | 2017-05-13 10:19 | DIAGNOSTIC IMAGING REPORT ---
CHEST ONE VIEW PORTABLE HISTORY: chest tube out COMPARISON: Chest 05/13/2017. FINDINGS: The right chest tube is been removed. Small right pleural effusion persists. Tiny right apical pneumothorax is decreased in size. This demonstrates a pleural gap of 4 mm. Right basilar densities persist. The heart remains mildly enlarged. IMPRESSION: Decrease in size in the tiny right pneumothorax. The right basilar chest tube has been removed. Electronically signed by: Baldemar Temple M.D. 05/13/2017 10:17 AM Dictated Date/Time: 05/13/2017 10:17 AM
--- NOTE | 2017-05-13 14:13 | NUR ---
ID Note: Patient alert and oriented x4, vital signs stable, lung sounds diminished with fine inspiratory and expiratory wheezes noted throughout, patient pain being controlled with prn pain medication, patient ambulates with one assist and a walker, tolerating a type one diabetic diet, patient chest tube discontinued by MD this AM, encouraged to walk the halls multiple times a day, call finney in reach, will continue to monitor
[2017-05-13 15:38] VITALS: PULSE 79; O2SAT 95
[2017-05-13 16:18] VITALS: BP 126/73; PULSE 98; TEMP 37.1; O2SAT 97
--- NOTE | 2017-05-13 16:20 | NUR ---
ID: Pt A/O x 4. Rates pain 5/10 with movement to the right flank/chest. Incision sites remain open to air, 4x4 and medipore to old drain site. Bloody drainage, moderate amount. Ecchymosis and edema present to right chest area. X1 assist with a walker. Pt to ambulate 2x per shift and sit up for meals per dr. Liang. Pt currently oob in chair. Saline locked in the left hand. Triflow to 1250 on RA. Pt states he has baseline n/t to bilateral fingers. Trace pitting E to left lower extremity. Tolerating DMT1 diet. Left first finger partial amputation. Bed in low and locked position, call finney in reach, pt rings appropriately.
[2017-05-13 21:05] VITALS: BP 127/76; PULSE 75; O2SAT 97
[2017-05-13] MEDS: GABAPENTIN 300 MG CAP PO SCH (21:09)
[2017-05-13] MEDS: TAMSULOSIN HCL 0.4 MG CAP PO SCH (21:09)
[2017-05-13] MEDS: ATORVASTATIN 40 MG TAB PO SCH (21:09)
[2017-05-13] MEDS: PANTOprazole SOD 40 MG TAB PO SCH (21:10)
[2017-05-13] MEDS: INSULIN GLARGINE SOLOSTAR 100 UNITS/ML 3 ML PEN SC SCH (21:34)
[2017-05-13 23:00] VITALS: BP 111/71; PULSE 79; TEMP 37; O2SAT 97
[2017-05-14] MEDS: LEVOTHYROXINE 50 MCG TAB PO SCH (05:40)
[2017-05-14] MEDS: MoRPHine SULFATE IR 15 MG TAB (IMMEDIATE RELEASE) PO PRN ×2 (05:40→20:24)
[2017-05-14 07:46] VITALS: BP 115/73; PULSE 72; TEMP 36.8; O2SAT 95
[2017-05-14] MEDS: INSULIN ASPART 100 UNITS/ML 3 ML PEN SC SCH ×4 (08:58→21:00)
[2017-05-14] MEDS: LACTULOSE SYRUP 20 GM/30 ML UDC PO SCH (08:59)
--- NOTE | 2017-05-14 09:00 | NUR ---
ID Note: Patient resting in chair comfortably. AOx4. Vital signs stable. Dressing intact. Patient ambulating in room with assist of one and walker. Tolerating diet well. Call finney within reach. Discharge uncertain at this time. Will continue to monitor.
[2017-05-14] MEDS: ASPIRIN 81 MG ECTAB PO SCH (09:01)
[2017-05-14] MEDS: DOCUSATE SODIUM 100 MG CAP PO SCH ×2 (09:01→20:27)
[2017-05-14] MEDS: CARVEDILOL 3.125 MG TAB PO SCH ×2 (09:01→20:30)
[2017-05-14] MEDS: CALCIUM POLYCARBOPHIL 1 TAB PO SCH (09:02)
[2017-05-14] MEDS: PAROXETINE 20 MG TAB PO SCH (09:03)
[2017-05-14] MEDS: THIAMINE HCL 100 MG TAB PO SCH ×2 (09:03→20:28)
[2017-05-14] MEDS: CHOLECALCIFEROL 1000 INTER.UNIT TAB PO SCH (09:04)
[2017-05-14] MEDS: ALLOPURINOL 300 MG TAB PO SCH (09:05)
[2017-05-14 09:15] LABS: HEMATOCRIT 24.6 % (42-52); HEMOGLOBIN 8.6 g/dL (14.0-18.0); MEAN CELL VOLUME 89.8 fL (80-100); MEAN CORPUSCULAR HEMOGLOBIN 31.4 pg (25-34); MEAN PLATELET VOLUME 8.9 fL (7.4-10.4); PLATELET COUNT 106 K/uL (130-400); RED CELL DISTRIBUTION WIDTH CV 15.1 % (11.5-14.5); WHITE BLOOD COUNT 7.61 K/uL (4.8-10.8)
--- NOTE | 2017-05-14 09:25 | DIAGNOSTIC IMAGING REPORT ---
CHEST ONE VIEW PORTABLE CLINICAL HISTORY: lobectomy POSTOP LOBECTOMY COMPARISON STUDY: 05/13/2017 FINDINGS: There is a trace right apical pneumothorax the pleural separation of 2 mm. There are progressive right basilar opacities, consistent with an enlarging right pleural effusion with associated basilar atelectasis/consolidation. Minor left basilar atelectatic changes are also evident. IMPRESSION: 1. Tiny 2 mm right apical pneumothorax 3. Increasing right basilar opacity, likely representing an increasing right pleural effusion with associated right basilar atelectasis/consolidation Electronically signed by: Shad Parr M.D. 05/14/2017 9:24 AM Dictated Date/Time: 05/14/2017 9:22 AM
[2017-05-14 09:33] LABS: CALCIUM 9.5 mg/dl (8.5-10.1); CREATININE 1.37 mg/dl (0.60-1.40); POTASSIUM 4.3 mmol/L (3.5-5.1)
--- NOTE | 2017-05-14 09:49 | Progress Note ---
Progress Note Date of Service May 14, 2017. Progress Note Mr. Bonner is improving, but still having significant pain relieved with narcotics.Hg and CXR stable. Responded well to lasix. He sounds better. A/P) POD #4 s/p lobecomy for NSCLC. He lives alone. Will discharge in am.
--- NOTE | 2017-05-14 12:09 | NUR ---
A: Patient up sitting in chair. Ambulating halls without difficultly. O2 Sat remains at 96-97% when ambulating. Patient states he is having "very little pain."
[2017-05-14 15:15] VITALS: BP 105/67; PULSE 76; TEMP 36.8; O2SAT 95
[2017-05-14] MEDS: GABAPENTIN 300 MG CAP PO SCH (20:27)
[2017-05-14] MEDS: PANTOprazole SOD 40 MG TAB PO SCH (20:27)
[2017-05-14] MEDS: ATORVASTATIN 40 MG TAB PO SCH (20:28)
[2017-05-14] MEDS: TAMSULOSIN HCL 0.4 MG CAP PO SCH (20:28)
[2017-05-14 20:29] VITALS: BP 127/83; PULSE 81; O2SAT 97
[2017-05-14] MEDS: INSULIN GLARGINE SOLOSTAR 100 UNITS/ML 3 ML PEN SC SCH (21:24)
[2017-05-14 23:06] VITALS: BP 119/78; PULSE 75; TEMP 36.8; O2SAT 96
[2017-05-15] MEDS: LEVOTHYROXINE 50 MCG TAB PO SCH (05:41)
[2017-05-15 07:00] VITALS: BP 103/71; PULSE 75; TEMP 37; O2SAT 96
[2017-05-15] MEDS: LACTULOSE SYRUP 20 GM/30 ML UDC PO SCH (08:28)
[2017-05-15] MEDS: CARVEDILOL 3.125 MG TAB PO SCH (08:29)
[2017-05-15] MEDS: DOCUSATE SODIUM 100 MG CAP PO SCH (08:29)
[2017-05-15] MEDS: CALCIUM POLYCARBOPHIL 1 TAB PO SCH (08:29)
[2017-05-15] MEDS: ASPIRIN 81 MG ECTAB PO SCH (08:29)
[2017-05-15] MEDS: PAROXETINE 20 MG TAB PO SCH (08:30)
[2017-05-15] MEDS: ALLOPURINOL 300 MG TAB PO SCH (08:31)
[2017-05-15] MEDS: CHOLECALCIFEROL 1000 INTER.UNIT TAB PO SCH (08:31)
[2017-05-15] MEDS: THIAMINE HCL 100 MG TAB PO SCH (08:56)
[2017-05-15] MEDS: INSULIN ASPART 100 UNITS/ML 3 ML PEN SC SCH (09:00)
[2017-05-15] MEDS ORDERED: MRP15 PO (09:07)
--- NOTE | 2017-05-15 09:11 | Discharge Instructions ---
Discharge Instructions Date of Service May 15, 2017. Admission Reason for Admission: Right Lung Nodule, IDDM Discharge Discharge Diagnosis / Problem: Carcinoma of lung Discharge Goals Goal(s): Decrease discomfort (Use pain medicine as needed) Activity Recommendations Activity Limitations: as noted below Lifting Limitations: gradually increase as tolerated Exercise/Sports Limitations: gradually increase as tolerated May Resume Sexual Activity: when tolerated Shower/Bathe: may shower/bathe in 3 days Driving or Machine Use: Wait until I see yopu in office. . Instructions / Follow-Up Instructions / Follow-Up Remove all dressings and shower on Monday, May 17. Walk!!!!! Current Hospital Diet Patient's current hospital diet: Diabetes Type 1 Diet Discharge Diet Recommended Diet: Diabetes Type 2 Diet Procedures Procedures Performed: Right Video Assisted Thoracscopy Davinci Robot with Right Lower Lobectomy and Lymphadenectomy - conversion to open procedure Pending Studies Studies pending at discharge: yes (Final pathology) List of pending studies: Final pathology Laboratory Results Hemoglobin A1c Test 04/07/17 05:37 Range/Units Estimated Average Glucose 126 mg/dl Hemoglobin A1c 6.0 H 4.5-5.6 % Medical Emergencies . Who to Call and When: Medical Emergencies: If at any time you feel your situation is an emergency, please call 911 immediately. . Non-Emergent Contact Non-Emergency issues call your: Surgeon ([phone]) Call Non-Emergent contact if: temperature is above 101.5, your pain is unusual for you, wound has increased drainage, wound has increased pain . "Provider Documentation" section prepared by Bonifacio Liang. . VTE Core Measure Inpt VTE Proph given/why not?: Enoxaparin (Lovenox)SQ, SCD's
[2017-05-15 09:45] VITALS: BP 103/71; PULSE 75; TEMP 37; O2SAT 96
--- NOTE | 2017-05-15 10:01 | SURGERY PROGRESS NOTE ---
DATE: 05/13/2017 SUBJECTIVE: Mr. Bonner was seen today. I went ahead and removed his chest tube today. He has ecchymosis, but his sites are all clean. His pain was better after I removed it. His x-ray looked quite good afterwards. Hemoglobin has been low at 7.6, but I think some of this is delusional. We are going to give him some Lasix today. Overall, he is ambulating and I do think he is better, but he is not ready for discharge yet. This patient lives alone.
--- NOTE | 2017-05-15 10:57 | NUR ---
a:[facility],son and volunteer,discharge instructions given,patient verbalized discharge instructions and follow up care
--- NOTE | 2017-05-15 15:10 | DISCHARGE SUMMARY ---
DISCHARGE DIAGNOSIS: Nonsmall cell lung carcinoma, right lower lobe. PROCEDURE: 1. Robot-assisted thoracoscopic wedge resection, right lower lobe mass. 2. Limited thoracotomy, left lower lobectomy and mediastinal lymphadenectomy. HOSPITAL COURSE: A 76-year-old male with a history of cigarette smoking was found to have a mass in his right lower lobe which is hypermetabolic. I brought him to the operating room on 05/10/2017 and wedged this out thoracoscopically with robot assistance. He had extremely adherent lymph nodes and after some dissection, I elected to proceed with a small thoracotomy for safety and performed a right lower lobectomy and mediastinal lymphadenectomy. All margins were negative. This was a nonsmall cell lung carcinoma. The patient had some issues initially postoperatively. I watched him on the floor, but I was a bit concerned about him as he appeared to be dry and had some renal failure. This improved with hydration aggressively and his urine output picked up and his creatinine stabilized. He was just about back to baseline. I watched him, removed his chest tube on postop day #3. He did well with this and the following day his x-ray looked very good. He developed a hematoma and ecchymosis around his wound and his platelet count had been low preoperatively. I think there may be a problem with his platelet as he had some oozing; however, this eventually settled down and he looked quite good. In fact, his hemoglobin, which dropped as low 7.6 with 8.6 the day prior to discharge. He never had a white count or fever. He is ambulating in the hallway. Tolerating a diet. He moved his bowels. He is on room air. His incisions were clean, at the time of his discharge. I will see him back in the office in 3 days with a chest x-ray. We did send him home on his regular medications and I gave him morphine sulfate by mouth, which helped him while he was here in the hospital. He did have AN ALLERGY TO OXYCODONE, WHICH HE STATES CAUSES SHORTNESS OF BREATH but not wheezing. At any rate, I thought he looked quite good. We will get his final pathology back, which is still pending and I will see him back in the office in 3 days.
--- NOTE | 2017-05-16 07:05 | SURGERY PROGRESS NOTE ---
DATE: 05/13/2017 SUBJECTIVE: Mr. Bonner was seen today on 05/13/2017. He is on room air 97% saturations. He is afebrile. His blood pressure has been quite good with the mean in the 70s and 80s. He has made extremely good urine. He put out 2400 mL yesterday and 550 mL already today. His chest tube drainage has come down. He is putting out some red serous fluid, put out 120 mL over the last shift. I am going to remove his chest tube because he is having an inordinate amount of pain. In addition, upon listenting to him he has some very mild upper airway rhonchi with mild wheezing. I am going to gently diurese him today. He has a regular rate and rhythm of his heart. His white count today is 5340; however, his hemoglobin is down to 7.6. I believe some of this may be due to dilution as his BUN has come down from 41 to 37, but more importantly, his creatinine has improved from 2.13-1.42. Blood sugars have been well controlled from 127-182 relatively. His bicarbonate is 23. He has a large hematoma where we operated. It is also tender. There is no erythema to suggest infection, but it is a little bit concerning. I am going to remove his chest tube today and check a chest x-ray. We are going to keep him in the hospital 1 more day. He is 76. He gets some issues with renal insufficiency and even though he is on room air, I would like to keep him 1 more day. It is unclear to me whether I am going to end up transfusing him or not. I think there has been an issue with clotting with him.
--- NOTE | 2017-05-16 08:25 | NUR ---
Discharge instructions faxed to [facility].
--- NOTE | 2017-05-18 09:59 | EDITING REQUIRED CODING QUERY ---
CODING QUERY To promote full compliance with coding requirements relating to patient care, provider participation is requested in all cases of competitive intelligence manager uncertainty. Please assist us with the question(s) below: Coding Question(s): Please clarify below, in your clinical opinion, regarding the documentation of "He developed a hematoma". ( X ) Hematoma is a postoperative complication ( ) Hematoma is not a postoperative complication Physician's Response(s): Thank you Missy Araujo Principal Diagnosis: "_that condition established after study, to be chiefly responsible for occasioning the admission of the patient to the hospital for care." Co-Existing Principal Diagnosis: "_when two or more diagnoses equally meet the criteria for principal diagnosis as determined by the circumstances of admission, diagnostic work up, and/or therapy provided, and the Alphabetic Index, Tabular List, or another coding guideline does not provide sequencing direction, any one of the diagnoses may be sequenced first." "When the physician has documented what appears to be a current diagnosis in the body of the record, but has not included the diagnosis in the final diagnostic statement, the physician should be asked whether the diagnosis should be added." ([facility] 2 QTR90. p3-4)
--- NOTE | 2017-05-18 10:03 | EDITING REQUIRED CODING QUERY ---
CODING QUERY To promote full compliance with coding requirements relating to patient care, provider participation is requested in all cases of auditing coder uncertainty. Please assist us with the question(s) below: Coding Question(s): There is documentation of the patient having some issues initially postoperatively and that he appeared to be dry and had some renal failure. Please clarify below, in your clinical opinion, regarding the renal failure. ( ) this was acute renal failure ( X) this was chronic renal failure - Please specify the stage of chronic renal failure, if known:_This was an acute exacerbation of his underlying chronic renal disease which recovered to baseline before discharge. I'm not sure I would add that to the diagnosis list. Physician's Response(s): Thank you Missy Araujo Principal Diagnosis: "_that condition established after study, to be chiefly responsible for occasioning the admission of the patient to the hospital for care." Co-Existing Principal Diagnosis: "_when two or more diagnoses equally meet the criteria for principal diagnosis as determined by the circumstances of admission, diagnostic work up, and/or therapy provided, and the Alphabetic Index, Tabular List, or another coding guideline does not provide sequencing direction, any one of the diagnoses may be sequenced first." "When the physician has documented what appears to be a current diagnosis in the body of the record, but has not included the diagnosis in the final diagnostic statement, the physician should be asked whether the diagnosis should be added." (Source [facility]oding [facility] 2 QTR90. p3-4)
[2017-08-01] MEDS ORDERED: VITAMIN B12 INJ (12:35)
[2017-08-01] MEDS ORDERED: PANT1TAB3 PO (12:35)
[2017-08-01] MEDS ORDERED: PARO10TA PO (12:35)
[2017-08-01] MEDS ORDERED: NVLGI/PEN SC (12:35)
[2017-08-01] MEDS ORDERED: INSU1.2I SC (12:35)
[2017-08-01] MEDS ORDERED: ALLO300T2 PO (12:35)
[2017-08-01] MEDS ORDERED: CALC625T13 PO (12:35)
[2017-08-01] MEDS ORDERED: ATOR-24 PO (12:35)
[2017-08-01] MEDS ORDERED: NRN100 PO (12:35)
[2017-08-01] MEDS ORDERED: ASPCH81X PO (12:35)
[2017-08-01] MEDS ORDERED: TAMS0.4C38 PO (12:35)
[2017-08-01] MEDS ORDERED: CHOL20007 PO (12:35)
[2017-08-01] MEDS ORDERED: CARV25TA2 PO (12:35)
[2017-08-21] MEDS ORDERED: PRD20 PO (12:55)
== END 2017-05-15 10:59 | disposition home health service (06) | DRG 167 ==
LOC: C.ACU 09:41 → C.MSW 17:46 → ENRESERV 18:22
PROVIDERS: ADMIT Surgery; ATTEND Surgery
PROC: 0B9N30Z Drainage of Right Pleura with Drainage Device, Percutaneous Approach (ICD-10-PCS; principal; 2017-05-10 11:45)
PROC: 07B70ZX Excision of Thorax Lymphatic, Open Approach, Diagnostic (ICD-10-PCS; principal; 2017-05-10 11:45)
PROC: 0BBF4ZX Excision of Right Lower Lung Lobe, Percutaneous Endoscopic Approach, Diagnostic (ICD-10-PCS; principal; 2017-05-10 11:45)
PROC: 8E0W4CZ Robotic Assisted Procedure of Trunk Region, Percutaneous Endoscopic Approach (ICD-10-PCS; principal; 2017-05-10 11:45)
DX: C34.31 Malignant neoplasm of lower lobe, right bronchus or lung (principal); L76.32 Postprocedural hematoma of skin and subcutaneous tissue following other procedure; D69.59 Other secondary thrombocytopenia; J45.909 Unspecified asthma, uncomplicated; N18.9 Chronic kidney disease, unspecified; K74.60 Unspecified cirrhosis of liver; J44.9 Chronic obstructive pulmonary disease, unspecified; E11.22 Type 2 diabetes mellitus with diabetic chronic kidney disease; E11.49 Type 2 diabetes mellitus with other diabetic neurological complication; E78.5 Hyperlipidemia, unspecified; K21.9 Gastro-esophageal reflux disease without esophagitis; H90.5 Unspecified sensorineural hearing loss; E66.9 Obesity, unspecified; I25.10 Atherosclerotic heart disease of native coronary artery without angina pectoris; M10.9 Gout, unspecified; N40.0 Benign prostatic hyperplasia without lower urinary tract symptoms; E03.9 Hypothyroidism, unspecified; I13.10 Hypertensive heart and chronic kidney disease without heart failure, with stage 1 through stage 4 chronic kidney disease, or unspecified chronic kidney disease; Z79.899 Other long term (current) drug therapy; Z79.4 Long term (current) use of insulin; Z77.090 Contact with and (suspected) exposure to asbestos; Z86.73 Personal history of transient ischemic attack (TIA), and cerebral infarction without residual deficits; Z68.37 Body mass index [BMI] 37.0-37.9, adult; Z87.891 Personal history of nicotine dependence; Z82.0 Family history of epilepsy and other diseases of the nervous system; Z84.1 Family history of disorders of kidney and ureter; Z82.49 Family history of ischemic heart disease and other diseases of the circulatory system; Y83.8 Other surgical procedures as the cause of abnormal reaction of the patient, or of later complication, without mention of misadventure at the time of the procedure; Y92.239 Unspecified place in hospital as the place of occurrence of the external cause; Y99.8 Other external cause status

== ENCOUNTER → 2017-05-18 | Outpatient (CLI) | payer OTHER, MEDICARE ==
[~2017-05-18] MED LIST changes: +LACT10SO17 PO; -LACT10SO3 PO; +MRP15 PO
[2017-05-18 12:05] LABS: BASO % 0.4 %; BASO ABS # 0.03 K/uL (0-0.2); EOS % 4.7 %; HEMATOCRIT 24.6 % (42-52); IG% 1.1 %; LYMPH % 20.8 %; LYMPH ABS # 1.49 K/uL (1.2-3.4); MEAN CELL VOLUME 91.4 fL (80-100); MEAN CORPUSCULAR HEMOGLOBIN 30.5 pg (25-34); MEAN CORPUSCULAR HGB CONC 33.3 g/dl (32-36); MEAN PLATELET VOLUME 8.7 fL (7.4-10.4); MONO % 7.9 %; NEUT % 65.1 %; PLATELET COUNT 129 K/uL (130-400); RED BLOOD COUNT 2.69 M/uL (4.7-6.1); WHITE BLOOD COUNT 7.17 K/uL (4.8-10.8)
--- NOTE | 2017-05-18 12:23 | DIAGNOSTIC IMAGING REPORT ---
CHEST 2 VIEWS ROUTINE HISTORY: R91.1 Nodule of right lung COMPARISON: Chest 05/14/2017. FINDINGS: No pneumothorax. Small to moderate right pleural effusion has slightly increased in size. The heart remains mildly enlarged. Right basilar densities favor atelectasis from the pleural effusion. The left lung is clear. Old moderate anterior wedge-shaped compression deformity at T12. IMPRESSION: 1. Small to moderate right pleural effusion has slightly increased in size. 2. No pneumothorax identified. Electronically signed by: Baldemar Temple M.D. 05/18/2017 12:21 PM Dictated Date/Time: 05/18/2017 12:20 PM
[2017-05-18 12:28] LABS: ANISOCYTOSIS PRESENT; COMPLETE YES
[2017-05-18 12:36] LABS: BLOOD UREA NITROGEN 34 mg/dl (7-18); BUN/CREATININE RATIO 25.6 (10-20); CALCIUM 9.4 mg/dl (8.5-10.1); CARBON DIOXIDE 27 mmol/L (21-32); CHLORIDE 108 mmol/L (98-107); CREATININE 1.32 mg/dl (0.60-1.40); GLUCOSE 111 mg/dl (70-99); PHOSPHORUS 2.1 mg/dl (2.5-4.9); POTASSIUM 3.8 mmol/L (3.5-5.1); SODIUM 142 mmol/L (136-145)
== END | disposition home or self-care (01) ==
LOC: C.RAD 11:27
PROVIDERS: ATTEND Surgery
DX: R91.1 Solitary pulmonary nodule (principal); N28.9 Disorder of kidney and ureter, unspecified; J90 Pleural effusion, not elsewhere classified

== ENCOUNTER 2017-05-19 12:17 | Emergency (ER) | payer OTHER, MEDICARE ==
[~2017-05-19] VITALS: Ht 172.7 cm; Wt 114.0 kg
[~2017-05-19 12:17] MED LIST changes: -LACT10SO17 PO; +LACT10SO3 PO
[2017-05-19 12:24] VITALS: TEMP 36.5; Ht 172.7 cm; Wt 114.0 kg
--- NOTE | 2017-05-19 12:42 | EMERGENCY ROOM VISIT NOTE ---
History Report prepared by Mary: Nik Palacio Under the Supervision of: Dr. Ruslan Noonan M.D. First contact with patient: 12:28 Chief Complaint: RESPIRATORY PROBLEMS Stated Complaint: TROUBLE BREATHING, RETAINING FLUID Nursing Triage Summary: pt to the ED with c/o SOB and fluid rentention was sent in by home health and is a pt of Dr lopez History of Present Illness The patient is a 76 year old white male with a past medical history of DM, HTN, PNA, asthma, lobectomy for NCSLC, COPD, and chest tube placement done by Dr. Lopez who presents to the ED with a cc of constant sob beginning this morning. He rates his discomfort as a 9/10 in severity. Positive mid chest pain , cough, leg swelling. Negative recent travel. He states that his symptoms are worsened with exertion. The patient is accompanied by his son who states that the patient had a chest x-ray and lab work done yesterday, which was normal. The patient states that he was awake this morning and sitting on his couch when he suddenly became short of breath. He reports that he used a nebulizer treatment, but denies any relief of symptoms. His son states that the patient recently had a chest tube placement and he is concerned because the patient has been retaining fluid. He states that the patient has an appointment in 10 days to reevaluated this problem. The patient reports that he takes Aspirin daily. Source of History: patient, family Onset: this morning Position: other (global) Symptom Intensity: 9/10 Quality: other (global) Timing: constant Modifying Factors (Worsening): exertion Modifying Factors (Relieving): other (nebulizer) Associated Symptoms: + cough, + chest pain Review of Systems See HPI for pertinent positives and negatives. A total of ten systems were reviewed and were otherwise negative. Past Medical & Surgical Medical Problems: (1) Acute dyspnea (2) Asthma (3) BPH (benign prostatic hyperplasia) (4) Bradycardia (5) Calcaneal spur (6) Carcinoma, lung (7) Carpal tunnel syndrome (8) Clostridium difficile diarrhea (9) COPD (chronic obstructive pulmonary disease) (10) CVA (cerebral vascular accident) (11) Diabetes (12) Gout (13) Hepatic encephalopathy (14) Hypertension (15) Liver disease (16) Right lower lobe lung mass (17) Right ureteral calculus Surgical Problems: (1) S/P lobectomy of lung Family History Cancer FHx: hemochromatosis Heart disease Hypertension Social History Smoking Status: Former Smoker Alcohol Use: none Drug Use: none Marital Status: Housing Status: lives alone Occupation Status: retired Current/Historical Medications Scheduled Allopurinol (Allopurinol), 300 MG PO QAM Aspirin (Aspirin Ec), 81 MG PO QAM Atorvastatin (Lipitor), 40 MG PO QPM Calcium Polycarbophil (Fiber Tabs), 1 TAB PO QAM Carvedilol (Coreg), 3.125 MG PO BID Cholecalciferol (Vitamin D3), 5,000 UNITS PO QAM Cyanocobalamin (Cyanocobalamin), 1 ML PO MONTHLY Gabapentin (Neurontin), 300 MG PO QPM Insulin Glargine (Toujeo Solostar), 30 UNITS INJ HS Insulin Human Lispro (Humalog), 10 UNITS SQ TIDM Lactulose (Chronulac), 40 GM PO QAM Levothyroxine Sodium (Synthroid), 50 MCG PO QAM Nitroglycerin (Nitrostat), 0.4 MG UT PRN Pantoprazole Sodium (Protonix), 40 MG PO HS Paroxetine (Paroxetine HCl), 10 MG PO QAM Tamsulosin Hcl (Flomax), 0.4 MG PO QPM Thiamine Hcl (Vitamin B1), 200 MG PO BID Scheduled PRN Albuterol Sulf (Proventil 0.083% 2.5MG/3ML), 2.5 MG INH Q6 PRN for SOB/Wheezing Albuterol Sulfate (Proair Respiclick), 2 PUFFS INH Q6 PRN for SOB/Wheezing Budesonide (Pulmicort Respules 0.5MG/2ML), 2 ML INH BID PRN for PRN Formoterol Fumarate (Perforomist), 2 ML INH BID PRN for PRN Ibuprofen Tab (Advil), 400 MG PO Q6 PRN for Headache or Pain Allergies Coded Allergies: Meperidine (Verified Allergy, Severe, ANAPHYLAXIS, 05/19/17) Iodinated Diagnostic Agents (Verified Allergy, Intermediate, HIVES, ) Oxycodone (Verified Allergy, Intermediate, SHORTNESS OF BREATH, 05/19/17) wheezing ??? Dobutamine (Verified Allergy, Unknown, abd pain, 05/19/17) Perflutren (Verified Allergy, Unknown, abd pain, 05/19/17) Physical Exam Vital Signs Date Time Temp Pulse Resp B/P (MAP) Pulse Ox O2 Delivery O2 Flow Rate FiO2 05/19/17 15:02 70 18 122/71 98 05/19/17 13:27 71 22 100 Nasal Cannula 1.0 05/19/17 12:43 98 Nasal Cannula 2.0 05/19/17 12:43 95 Room Air 05/19/17 12:38 70 05/19/17 12:24 36.5 68 28 126/71 98 Room Air Physical Exam GENERAL: Awake, alert, uncomfortable-appearing, NAD, obese HENT: Normocephalic, atraumatic. EYES: Normal conjunctiva. Sclera non-icteric. NECK: Supple. No nuchal rigidity. FROM. RESPIRATORY: CTAB, no rhonchi, shallow breaths with diffuse and mild expiratory wheezes, no crackles CARDIAC: RRR, no MRG ABDOMEN: Soft, NTND, BS+ MSK: No chest wall TTP, 1+ bilateral LE edema NEURO: GCS 15, CN 2-12 intact, moves all 4s on command SKIN: No rash or jaundice noted. Diffuse ecchymosis of the right lateral chest extending to right flank and right lower back, well healing wounds, no drainage. Medical Decision & Procedures ER Provider Diagnostic Interpretation: X-ray: Per my interpretation, radiologist review. CHEST ONE VIEW PORTABLE HISTORY: EVALUATE RESPIRATORY DISTRESS.DYSPNEA COMPARISON: Chest 05/18/2017. FINDINGS: No pneumothorax. The heart remains mildly enlarged. Small to moderate right pleural effusion persist. Patchy densities at the right lung base are also unchanged. This could represent atelectasis from the pleural fluid. There is mild central pulmonary vascular congestion without overt edema. The left lung is clear. IMPRESSION: 1. No change in the small to moderate right pleural effusion and right basilar densities. 2. Mild central pulmonary vascular congestion without overt edema. Electronically signed by: Baldemar Temple M.D. 05/19/2017 12:57 PM Dictated Date/Time: 05/19/2017 12:56 PM CHEST ONE VIEW PORTABLE CLINICAL HISTORY: Thoracentesis. COMPARISON STUDY: Chest radiograph May 19, 2017 12:41 PM. FINDINGS: No pneumothorax is identified. The right pleural effusion has decreased in size since previous exam. There is a small residual pleural effusion. Hazy right lower lung opacity is present. There is pulmonary vascular congestion. Cardiomegaly is unchanged. IMPRESSION: No pneumothorax following thoracentesis. Interval decrease in size of the right pleural effusion. Electronically signed by: Bryn Kathleen M.D. 05/19/2017 1:38 PM Dictated Date/Time: 05/19/2017 1:37 PM Laboratory Results Test 05/19/17 00:00 Venous Blood pH 7.24 (7.36-7.41) Venous Blood Partial Pressure CO2 53 mmHg (38.0-50.0) Venous Blood Partial Pressure O2 22 mmHg Venous Blood HCO3 22 mmol/L Venous Blood Oxygen Saturation < 60.0 % Venous Blood Base Excess -4.7 mEq/L Laboratory results reviewed by me Medications Administered Medications (Trade) Dose Ordered Sig/Ronna Route Start Time Stop Time Status Last Admin Dose Admin Albuterol/ Ipratropium (Duoneb) 9 ml ONE ONCE INH 05/19/17 12:45 05/19/17 12:46 DC 05/19/17 13:27 9 ML ECG Indication: SOB/dyspnea Rate (beats per minute): 66 Rhythm: normal sinus Findings: left axis deviation, other (Normal intervals, T Wave Flattening inferiorily, No other STS changes ot TWI changes.) Comparison ECG Date: 04/07 Change: LAD and T Wave Flattening are old. ED Course 1231: The patient was evaluated in room B08. A complete history and physical exam was performed. 1315: I discussed the patients case with Dr. Lopez, [facility] Thoracic Surgery. He reports that he will perform a thoracentesis and if the patient does not improve, he will be further evaluated. If he does improve, the patient can go home. 1347: Dr. Lopez performed a thoracentesis of right posterior chest. He removed 600 ccs. A post procedure x-ray was performed. Upon reassessment, patient was feeling better and was receiving a nebulizer treatment. I discussed the patient's discharge instructions and he is ready for discharge. Medical Decision Triage Nursing notes reviewed. The patient is a 76 year old white male with a past medical history of DM, HTN, PNA, asthma, lobectomy for NCSLC, COPD, and chest tube placement done by Dr. Lopez who presents to the ED with a cc of constant sob beginning this morning. The patient's presentation and history were concerning for Etiologies such as infections, reactive airway disease, pneumonia, pneumothorax, COPD, CHF, cardiac ischemia, pulmonary embolism, musculoskeletal, gastrointestinal, as well as others were entertained. Patient was seen and evaluated the bedside. Patient is a for recent history of a right-sided lobectomy secondary to NCSLC and does have a history of COPD. Patient initially did have blood work ordered along with a chest x-ray. Patient 's chest x-ray was completed which did show a moderate-sized right-sided pleural effusion. Dr. Lopez did come by to assess to see the patient. He did do a bedside ultrasound which did show that the patient did have persistent pleural effusion in the right chest. He removed proximal was 600 mL of fluid. Patient did not suffer any complications. Patient did have a postprocedure chest x-ray which did show improvement in the right-sided pleural effusion without any pneumothorax. Patient did feel better after this procedure in addition to the DuoNeb's completed. Patient does have follow-up with his thoracic surgeon on Monday and was given strict follow-up and warning precautions. Given the patient did have recent blood work per Dr. Lopez we decided not to do any further blood work or imaging of his chest as given his symptomatic improvement with the procedure this is the most likely cause of the shortness of breath. Patient was deemed suitable for outpatient follow-up and treatment. Patient was given strict follow-up, discharge, and return precautions. All questions were answered. Patient was deemed suitable for outpatient follow-up at this time. Patient agreed with the plan of care and was safely discharged home. Medication Reconcilliation Current Medication List: was personally reviewed by me Blood Pressure Screening Patient's blood pressure: Normal blood pressure Consults Time Called: 1315 Consulting Physician: Dr. Lopez, [facility] Thoracic Surgery. Returned Call: 1315 I discussed the patients case with Dr Lopez, [facility] Thoracic Surgery. He reports that he will perform a thoracentesis and if the patient does not improve , he will be further evaluated. If he does improve, the patient can go home. Impression Primary Impression: Acute dyspnea Additional Impressions: Pleural effusion COPD exacerbation Scribe Attestation The scribe's documentation has been prepared under my direction and personally reviewed by me in its entirety. I confirm that the note above accurately reflects all work, treatment, procedures, and medical decision making performed by me. Departure Information Dispostion Home / Self-Care Referrals Domo Alanis D.O. (PCP) Bonifacio Lopez MD Patient Instructions ED Dyspnea Shortness of Breath, [facility], Thoracentesis Dc Additional Instructions Please return to the emergency department if you have worsening or recurrent symptoms not amenable to at-home treatment. Please call for a follow-up appointment with her primary care physician. Please take your medications as prescribed. If you have other concerns and/or complaints please feel free to also call your primary care physician's office or return the ED for further evaluation, management, and treatment. Please keep her follow-up with Dr. Lopez on Monday. Return if you have any worsening symptoms or concerns. Take your medications as prescribed. If taking an antibiotic consider taking a probiotic and/or eating yogurt, but at the least, please take with food as it can cause upset stomach. If culture results are not available at discharge, if they are positive for concern of infection, you will be informed of the results as soon as they are available. If you were seen between 11pm and 7AM all radiology reads will be re-read by our in house staff. If any major discrepancies are discovered, you will be notified. You have been examined and treated today on an emergency basis only. This is not a substitute for, or an effort to provide, complete comprehensive medical care. It is impossible to recognize and treat all injuries or illnesses in a single emergency department visit. It is therefore important that you follow up closely with [facility], your PCP, and/or your specialist(s). Call as soon as possible for an appointment. Thank you for your time and consideration. I look forward to speaking with you again soon. Please don't hesitate to call us if you have any questions. Problem Qualifiers
[2017-05-19 12:43] VITALS: O2SAT 95
[2017-05-19] MEDS ORDERED: ALBUT/IPRATROP 3MG/0.5MG NEB 3 ML VIAL INH ONE (12:45)
--- NOTE | 2017-05-19 12:59 | DIAGNOSTIC IMAGING REPORT ---
CHEST ONE VIEW PORTABLE HISTORY: EVALUATE RESPIRATORY DISTRESS.DYSPNEA COMPARISON: Chest 05/18/2017. FINDINGS: No pneumothorax. The heart remains mildly enlarged. Small to moderate right pleural effusion persist. Patchy densities at the right lung base are also unchanged. This could represent atelectasis from the pleural fluid. There is mild central pulmonary vascular congestion without overt edema. The left lung is clear. IMPRESSION: 1. No change in the small to moderate right pleural effusion and right basilar densities. 2. Mild central pulmonary vascular congestion without overt edema. Electronically signed by: Baldemar Temple M.D. 05/19/2017 12:57 PM Dictated Date/Time: 05/19/2017 12:56 PM
[2017-05-19 13:27] VITALS: PULSE 71; O2SAT 100
--- NOTE | 2017-05-19 13:40 | DIAGNOSTIC IMAGING REPORT ---
CHEST ONE VIEW PORTABLE CLINICAL HISTORY: Thoracentesis. COMPARISON STUDY: Chest radiograph May 19, 2017 12:41 PM. FINDINGS: No pneumothorax is identified. The right pleural effusion has decreased in size since previous exam. There is a small residual pleural effusion. Hazy right lower lung opacity is present. There is pulmonary vascular congestion. Cardiomegaly is unchanged. IMPRESSION: No pneumothorax following thoracentesis. Interval decrease in size of the right pleural effusion. Electronically signed by: Bryn Kathleen M.D. 05/19/2017 1:38 PM Dictated Date/Time: 05/19/2017 1:37 PM
--- NOTE | 2017-05-19 14:17 | CONSULTATION REPORT ---
DATE OF CONSULTATION: 05/19/2017 HISTORY OF PRESENT ILLNESS: Mr. Bonner was seen today on 03/19/2017. Nine days ago, the patient underwent a robot-assisted wedge resection and then a limited thoracotomy with a right lower lobectomy and lymph node dissection. It turns out he has had a stage I lung cancer. He will not require further therapy. I saw him in the office yesterday and was quite happy with him. His lab looked good. His hemoglobin is down to 8.2, but it had been stable. His creatinine was back down to 1.32 as it had bumped after surgery. Overall, I was quite happy with him and the only issue yesterday that was raised with the patient and his son with the fact that he had a bit more fluid in his chest and he did when he left the hospital a few days before. His saturations were 98% on room air and he was not short of breath. He called today stating that he is really having trouble getting his breath. He had had wheezing. The home care nurse has heard him and felt that he should come to the Emergency Room. We met him here and an x-ray really was not much different than yesterday. His saturations were 100% on supplemental oxygen, but he had never been hypoxic. In addition, he was not tachycardic. His blood pressure was fine. I went ahead and did a thoracentesis for 600 mL of bloody nonclotting fluid. His x-ray looked much better after that. He also got a breathing treatment and his wheezing resolved. It was 100% saturation and looked better. I will allow him to be discharged from the Emergency Room and I will see him back in the office in 4 days. I have also given him my cell phone number to call me if there is a problem. I had a long talk with the patient's daughter who is a nurse, son and his grandson. We are all in agreement with this plan.
--- NOTE | 2017-05-19 14:20 | OPERATIVE REPORT ---
DATE OF OPERATION: 05/19/2017 PROCEDURE: Right thoracentesis under ultrasound guidance. SURGEON: Dr. Liang. FREEZER OPERATOR: RANJITH White DESCRIPTION OF PROCEDURE: The patient was in the Emergency Room. An x-ray showed a left pleural effusion 9 days after we did a right lower lobectomy. The patient was in upright position, I used an ultrasound, I could see that he did indeed have free flowing fluid. After appropriate consent had been obtained and we had discussed this with the patient and his family, we prepped and draped in usual sterile fashion. After appropriate timeout had been called, a skin wheal was raised with a 25-gauge needle with 1% Xylocaine. A large bore needle was used to anesthetize the deeper subcutaneous tissues, muscle and pleura. We got free flowing bloody fluid. A guidewire was inserted and the needle removed. Introducer sheath was slid over the guidewire to enlarge the insertion tract and then a triple lumen catheter was slid over the guidewire and into the pleural cavity. The guidewire was removed. We then drained a bit more than 600 mL of non-clotting blood, which was dark. We sent it off for appropriate studies. His x-ray looked better after we had finished with really no evidence of an effusion or infiltrate. The patient also got a nebulizer treatment and his wheezing resolved. He was discharged from the Emergency Room after we removed the catheter. He looked much better. I attest to the content of the Intraoperative Record and any orders documented therein. Any exception s are noted below.
[2017-05-19 15:02] VITALS: BP 122/71; PULSE 70; O2SAT 98
[2017-08-01] MEDS ORDERED: NRN100 PO (12:35)
[2017-08-01] MEDS ORDERED: CALC625T13 PO (12:35)
[2017-08-01] MEDS ORDERED: PANT1TAB3 PO (12:35)
[2017-08-01] MEDS ORDERED: PARO10TA PO (12:35)
[2017-08-01] MEDS ORDERED: TAMS0.4C38 PO (12:35)
[2017-08-01] MEDS ORDERED: INSU1.2I SC (12:35)
[2017-08-01] MEDS ORDERED: CARV25TA2 PO (12:35)
[2017-08-01] MEDS ORDERED: VITAMIN B12 INJ (12:35)
[2017-08-01] MEDS ORDERED: CHOL20007 PO (12:35)
[2017-08-01] MEDS ORDERED: ALLO300T2 PO (12:35)
[2017-08-01] MEDS ORDERED: ASPCH81X PO (12:35)
[2017-08-01] MEDS ORDERED: ATOR-24 PO (12:35)
[2017-08-01] MEDS ORDERED: NVLGI/PEN SC (12:35)
[2017-08-21] MEDS ORDERED: PRD20 PO (12:55)
== END 2017-05-19 14:50 | disposition home or self-care (01) ==
LOC: C.EDB 12:18
DX: R06.00 Dyspnea, unspecified (principal); J90 Pleural effusion, not elsewhere classified; J44.1 Chronic obstructive pulmonary disease with (acute) exacerbation; E11.9 Type 2 diabetes mellitus without complications; I10 Essential (primary) hypertension; Z85.118 Personal history of other malignant neoplasm of bronchus and lung; Z87.01 Personal history of pneumonia (recurrent); Z86.73 Personal history of transient ischemic attack (TIA), and cerebral infarction without residual deficits; K76.9 Liver disease, unspecified; Z87.442 Personal history of urinary calculi; Z80.9 Family history of malignant neoplasm, unspecified; Z82.49 Family history of ischemic heart disease and other diseases of the circulatory system; Z87.891 Personal history of nicotine dependence; Z79.82 Long term (current) use of aspirin; Z79.899 Other long term (current) drug therapy

== ENCOUNTER → 2017-05-23 | Outpatient (CLI) | payer OTHER, MEDICARE ==
[~2017-05-23] MED LIST changes: +ALL300; +ALLO300T2 PO; +AMOX875T PO; +ASPCH81X PO; +CARV25TA2 PO; +CHOL20007 PO; +CYNI1000 INJ; +CZR50; +FINA5TAB PO; +FORM1NEB NEB; +GABA-1219 PO; +GLUC-221; +INSU1.2I SC; +INSU1.2I SL; +INSU100I; +MAGN400T6 PO; -MRP15 PO; +NRN100 PO; +NRV5 PO; +NVLGI/PEN SC; +PANT1TAB3 PO; +PARO10TA PO; +PLV75 PO; +PRAV20TA PO; +PRD20 PO; +SACC250C3 PO; +TRAM-10 PO; +VITAMIN B12 INJ
--- NOTE | 2017-05-23 09:55 | DIAGNOSTIC IMAGING REPORT ---
CHEST 2 VIEWS ROUTINE CLINICAL HISTORY: 76 years-old Male presenting with COUGH. TECHNIQUE: PA and lateral views of the chest were obtained. COMPARISON: 05/19/2017. FINDINGS: Atherosclerosis of aortic arch. Cardiac silhouette mildly enlarged. Right basilar opacity unchanged. Moderate right pleural effusion, stable slightly increased in size. Left lung and pleural space clear. No pneumothorax. Degenerative changes of the thoracic spine. Degenerative changes of the glenohumeral joints, right greater than left. Degenerative changes of the bilateral acromioclavicular joints. Upper abdomen normal. IMPRESSION: 1. Stable slight increase in size of the moderate right pleural effusion with persistent right basilar opacity. Underlying infection/consolidation cannot be excluded. No pneumothorax. Electronically signed by: Chon West M.D. 05/23/2017 9:53 AM Dictated Date/Time: 05/23/2017 9:49 AM
== END | disposition home or self-care (01) ==
LOC: C.RAD1850 09:31
PROVIDERS: ATTEND Physician Assistant
DX: R05 Cough (principal); J90 Pleural effusion, not elsewhere classified; R91.8 Other nonspecific abnormal finding of lung field

== ENCOUNTER → 2017-05-30 | Outpatient (CLI) | payer OTHER, MEDICARE ==
[~2017-05-30] MED LIST changes: -ALL300; -ALLO300T2 PO; -AMOX875T PO; -ASPCH81X PO; -CARV25TA2 PO; -CHOL20007 PO; -CYNI1000 INJ; -CZR50; -FINA5TAB PO; -FORM1NEB NEB; -GABA-1219 PO; -GLUC-221; -INSU1.2I SC; -INSU1.2I SL; -INSU100I; +LACT10SO17 PO; -LACT10SO3 PO; -MAGN400T6 PO; -NRN100 PO; -NRV5 PO; -NVLGI/PEN SC; -PANT1TAB3 PO; -PARO10TA PO; -PLV75 PO; -PRAV20TA PO; -PRD20 PO; -SACC250C3 PO; -TRAM-10 PO; -VITAMIN B12 INJ
--- NOTE | 2017-05-30 10:01 | DIAGNOSTIC IMAGING REPORT ---
CHEST 2 VIEWS ROUTINE CLINICAL HISTORY: Pleural effusion. COMPARISON STUDY: Chest radiograph May 23, 2017. FINDINGS: A moderate to large right pleural effusion has slightly increased since exam of July 21, 2017. A few lucencies projecting over the pleural fluid and may reflect a small amount of pleural gas. Associated right basilar opacity is noted. Left lung is clear. Moderate cardiomegaly is noted. There is no radiographic evidence of pulmonary edema. IMPRESSION: Slight increase in size of a moderate to large right pleural effusion which may contain several locules of gas, a nonspecific finding. Associated right lower lung atelectasis/consolidation. Electronically signed by: Bryn Kathleen M.D. 05/30/2017 10:00 AM Dictated Date/Time: 05/30/2017 9:53 AM
[2017-05-30 10:41] LABS: BASO % 0.8 %; BASO ABS # 0.06 K/uL (0-0.2); EOS % 5.9 %; EOS ABS # 0.42 K/uL (0-0.5); HEMATOCRIT 27.5 % (42-52); IG# 0.05 K/uL (0.00-0.02); LYMPH % 21.2 %; MEAN CELL VOLUME 91.4 fL (80-100); MEAN CORPUSCULAR HEMOGLOBIN 29.9 pg (25-34); MEAN CORPUSCULAR HGB CONC 32.7 g/dl (32-36); MEAN PLATELET VOLUME 8.6 fL (7.4-10.4); MONO % 8.3 %; MONO ABS # 0.59 K/uL (0.11-0.59); NEUT % 63.1 %; NEUT ABS # 4.46 K/uL (1.4-6.5); PLATELET COUNT 146 K/uL (130-400); RED CELL DISTRIBUTION WIDTH CV 15.9 % (11.5-14.5); RED CELL DISTRIBUTION WIDTH SD 52.4 fL (36.4-46.3); WHITE BLOOD COUNT 7.08 K/uL (4.8-10.8)
[2017-05-30 11:29] LABS: BLOOD UREA NITROGEN 23 mg/dl (7-18); CALCIUM 9.5 mg/dl (8.5-10.1); CARBON DIOXIDE 25 mmol/L (21-32); CREATININE 1.27 mg/dl (0.60-1.40); GLUCOSE 120 mg/dl (70-99); POTASSIUM 3.9 mmol/L (3.5-5.1); SODIUM 140 mmol/L (136-145)
== END | disposition home or self-care (01) ==
LOC: C.RAD1850 09:34
PROVIDERS: ATTEND Physician Assistant
DX: D62 Acute posthemorrhagic anemia (principal); J90 Pleural effusion, not elsewhere classified

== ENCOUNTER → 2017-06-13 | Outpatient (CLI) | payer OTHER, MEDICARE ==
--- NOTE | 2017-06-13 10:05 | DIAGNOSTIC IMAGING REPORT ---
CHEST 2 VIEWS ROUTINE HISTORY: H/O PLEURAL EFFUSION COMPARISON: Chest 05/30/2017. FINDINGS: Moderate right pleural effusion, unchanged. This contains a few small locules of gas which is also unchanged. Suspect a right anterolateral ninth rib fracture. The right basilar densities persist. The heart is stable in size. The left lung is clear. IMPRESSION: 1. No change in the moderate right pleural effusion containing a a few small locules of gas. 2. There appears to be a right anterolateral ninth rib fracture. Electronically signed by: Baldemar Temple M.D. 06/13/2017 10:04 AM Dictated Date/Time: 06/13/2017 10:01 AM
== END | disposition home or self-care (01) ==
LOC: C.RAD1850 09:28
PROVIDERS: ATTEND Physician Assistant
DX: J90 Pleural effusion, not elsewhere classified (principal)

== ENCOUNTER → 2017-06-13 | Outpatient (CLI) | payer OTHER, MEDICARE ==
[2017-06-13 12:11] LABS: BASO ABS # 0.06 K/uL (0-0.2); EOS % 5.7 %; EOS ABS # 0.33 K/uL (0-0.5); HEMATOCRIT 27.2 % (42-52); HEMOGLOBIN 8.9 g/dL (14.0-18.0); IG# 0.02 K/uL (0.00-0.02); LYMPH ABS # 1.49 K/uL (1.2-3.4); MEAN CELL VOLUME 87.2 fL (80-100); MEAN CORPUSCULAR HEMOGLOBIN 28.5 pg (25-34); MEAN CORPUSCULAR HGB CONC 32.7 g/dl (32-36); MEAN PLATELET VOLUME 9.1 fL (7.4-10.4); MONO % 11.5 %; MONO ABS # 0.66 K/uL (0.11-0.59); NEUT % 55.5 %; NEUT ABS # 3.18 K/uL (1.4-6.5); PLATELET COUNT 137 K/uL (130-400); RED CELL DISTRIBUTION WIDTH CV 16.3 % (11.5-14.5); WHITE BLOOD COUNT 5.74 K/uL (4.8-10.8)
[2017-06-13 12:24] LABS: ALBUMIN 2.8 gm/dl (3.4-5.0); BLOOD UREA NITROGEN 23 mg/dl (7-18); CALCIUM 9.4 mg/dl (8.5-10.1); CARBON DIOXIDE 27 mmol/L (21-32); CREATININE 1.24 mg/dl (0.60-1.40); GLUCOSE 69 mg/dl (70-99); POTASSIUM 3.7 mmol/L (3.5-5.1); SODIUM 142 mmol/L (136-145)
== END | disposition home or self-care (01) ==
LOC: C.LAB1850 10:47
PROVIDERS: ATTEND Surgery
DX: R91.1 Solitary pulmonary nodule (principal); Z87.09 Personal history of other diseases of the respiratory system

== ENCOUNTER → 2017-07-10 | Outpatient (CLI) | payer OTHER, MEDICARE ==
--- NOTE | 2017-07-10 09:35 | DIAGNOSTIC IMAGING REPORT ---
CHEST 2 VIEWS ROUTINE CLINICAL HISTORY: Z87.09 H/O pleural [id number] COMPARISON STUDY: 06/13/2017 FINDINGS: There is a loculated right nasal or hydropneumothorax. There are minor associated right basilar airspace opacities. The left lung is clear. The heart is at the upper limits of normal in size.[ IMPRESSION: Loculated right basilar hydropneumothorax. Electronically signed by: Shad Parr M.D. 07/10/2017 9:33 AM Dictated Date/Time: 07/10/2017 9:32 AM
== END | disposition home or self-care (01) ==
LOC: C.RAD1850 09:18
PROVIDERS: ATTEND Surgery
DX: Z87.09 Personal history of other diseases of the respiratory system (principal)

== ENCOUNTER → 2017-08-08 | Outpatient (CLI) | payer OTHER, MEDICARE ==
[~2017-08-08] MED LIST changes: -ALL300 PO; +ALLO300T2 PO; +ASPCH81X PO; -ASPI81TA28 PO; +CARV25TA2 PO; -CARV3.12 PO; -CHOL1CAP57 PO; +CHOL20007 PO; -CYNI1000 PO; -FORM1NEB INH; -GABA-113 PO; -IBUP-103 PO; -INSPMPHMLG SQ; -INSU1.2I INJ; +INSU1.2I SC; +NRN100 PO; +NVLGI/PEN SC; +PANT1TAB3 PO; -PANT40TA PO; +PARO10TA PO; -PXL/10 PO; -THIA100T46 PO; +VITAMIN B12 INJ
--- NOTE | 2017-08-08 07:47 | DIAGNOSTIC IMAGING REPORT ---
ABDOMEN LIMITED (US) HISTORY: 77 years-old Male CIRRHOSIS chronic liver disease COMPARISON: PET CT 04/17/2017 TECHNIQUE: Multiple real-time sonographic images of the abdominal right upper quadrant were obtained assessing grayscale appearance and color flow FINDINGS: Liver appears echogenic and heterogeneous with marginal nodularity. No intrahepatic biliary ductal dilation or focal hepatic mass lesions. The pancreas is not well seen secondary to obscuring bowel gas. Imaged portions of the pancreas appear mildly echogenic which is a nonspecific finding. Prior cholecystectomy. Common bile duct is not well seen. Study is overall limited secondary to obscuring bowel gas. The right kidney demonstrates no hydronephrosis. No ascites. IMPRESSION: 1. Cirrhotic morphology of the liver without ascites identified. 2. Prior cholecystectomy. 3. No biliary ductal dilation identified, however the common bile duct is not well-visualized secondary to obscuring bowel gas. The above report was generated using voice recognition software. It may contain grammatical, syntax or spelling errors. Electronically signed by: Darius Ramirez M.D. 08/08/2017 7:46 AM Dictated Date/Time: 08/08/2017 7:43 AM
== END | disposition home or self-care (01) ==
LOC: C.ULTR 06:29
PROVIDERS: ATTEND Internal Medicine
DX: K74.60 Unspecified cirrhosis of liver (principal); E83.110 Hereditary hemochromatosis; Z90.49 Acquired absence of other specified parts of digestive tract

== ENCOUNTER → 2017-08-08 | Day surgery (SDC) | payer OTHER, MEDICARE ==
[2017-08-01 12:36] VITALS: BMI 35.0
[~2017-08-08] VITALS: Ht 175.3 cm; Wt 107.7 kg
[~2017-08-08] MED LIST changes: +LIDOCAINE HCL 2% 2 ML VIAL (20MG/ML) ONE; +PROPOFOL IV EMULSION 10 MG/ML 20 ML VIAL IV ONE; +SODIUM CHLORIDE 0.9% 500ML 500 ML IV ONE
[2017-08-08 07:47] VITALS: Ht 175.3 cm; Wt 107.7 kg
--- NOTE | 2017-08-08 08:40 | Endo History and Physical ---
History & Physical Date of Service: Aug 08, 2017. Chief Complaint: ABDOMINAL PAIN Referring Physician: DR. PRINCESS THOMAS History of Present Illness abd pain Past Medical History Arthritis, Asthma, Gastrointestinal Disorder, Anxiety, Reflux, Hypertension, COPD, Thyroid Disease, Liver Disease, Depression Past Surgical History Hx Cardiac Surgery: Yes (CARDIAC CATH IN PAST/NO STENTS) Hx Internal Defibrillator: No Hx Pacemaker: No Hx Abdominal Surgery: No (COLON RESECTION/COLOSTOMY/REVERSAL, ALIYA, LYSIS ADHESIONS, INGUINAL HERNIA) Hx of Implantable Prosthesis: No Hx Post-Op Nausea and Vomiting: No Hx Cancer Surgery: Yes (RT LOWER LOBECTOMY) Hx Thoracic Surgery: No Hx Orthopedic: Yes (RT OPEN SHOULDER SURGERY, RT OPEN KNEE SURG, RT HEEL SPUR) Hx Urinary Tract Surgery: Yes (TURP, CYSTOSCOPY AND STONE REMOVAL) Family History IBD Social History Smoking Status: Former Smoker Hx Substance Use: No Hx Alcohol Use: No (QUIT 1970) Allergies Coded Allergies: Meperidine (Verified Allergy, Severe, ANAPHYLAXIS, 08/08/17) Iodinated Diagnostic Agents (Verified Allergy, Intermediate, HIVES, ) Oxycodone (Verified Allergy, Intermediate, SHORTNESS OF BREATH, 08/08/17) wheezing ??? Dobutamine (Verified Allergy, Unknown, abd pain, 08/08/17) Perflutren (Verified Allergy, Unknown, abd pain, 08/08/17) Current Medications Reported Home Medications Medications Dose Route/Sig Max Daily Dose Days Date Category Dose Instructions Novolog Flexpen (Insulin Aspart) 100 Units/Ml Inj 1 Dose SC TID 08/01/17 Reported SLIDING SCALE AND CARB COUNTING Toujeo Solostar (Insulin Glargine) 300 Unit/Ml Inj 20 Units SC HS 08/01/17 Reported [Vitamin B12] 1 Dose INJ MONTHLY 08/01/17 Reported Vitamin D3 (Cholecalciferol) 2,000 Unit Tab 1 Tab PO QPM 08/01/17 Reported Flomax (Tamsulosin Hcl) 0.4 Mg Cap 0.4 Mg PO QPM 08/01/17 Reported Gabapentin 100 Mg Cap 1 Cap PO QPM 08/01/17 Reported Lipitor (Atorvastatin Calcium) 40 Mg Tab 40 Mg PO QPM 08/01/17 Reported Protonix (Pantoprazole) 40 Mg Tab 40 Mg PO HS 08/01/17 Reported Aspirin Chewable (Aspirin) 81 Mg Chew 81 Mg PO QAM 08/01/17 Reported Zyloprim (Allopurinol) 300 Mg Tab 300 Mg PO QAM 08/01/17 Reported Fiber Tabs (Calcium Polycarbophil) 625 Mg Tab 1 Tab PO QAM 08/01/17 Reported Paxil (Paroxetine Hcl) 10 Mg Tab 10 Mg PO QAM 08/01/17 Reported Coreg (Carvedilol) 25 Mg Tab 0.5 Tab PO BID 08/01/17 Reported Proair Respiclick (Albuterol Sulfate) 108 Mcg/Act Aer 2 Puffs INH Q6 PRN 04/06/17 Reported Proventil 0.083% 2.5MG/3ML (Albuterol Sulf) 2.5 Mg/3 Ml Nebu 2.5 Mg INH Q6 PRN 04/06/17 Reported Chronulac (Lactulose) 10 Gm/15 Ml Syrp 2 Tbs PO QAM 12/26/16 Reported Pulmicort Respules 0.5MG/2ML (Budesonide) 0.5 Mg/2 Ml Nebu 2 Ml INH BID PRN 04/20/16 Reported Nitrostat (Nitroglycerin) 0.4 Mg Tab 0.4 Mg UT PRN 01/21/16 Reported Synthroid (Levothyroxine Sodium) 50 Mcg Tab 50 Mcg PO QAM 02/05/14 Reported 0600 Vital Signs Weight (Kilograms): 107.73 Height (Feet): 5 Height (Inches): 9 Date Time Temp Pulse Resp B/P (MAP) Pulse Ox O2 Delivery O2 Flow Rate FiO2 08/08/17 08:07 36.6 54 16 132/71 (91) 99 Room Air Physical Exam General Appearance: WD/WN, no apparent distress Assessment and Plan EGD today
--- NOTE | 2017-08-08 09:01 | Discharge Instructions ---
Endoscopy Patient Instructions Date / Procedure(s) Performed Aug 08, 2017. EGD Allergy Information Coded Allergies: Meperidine (Verified Allergy, Severe, ANAPHYLAXIS, 08/08/17) Iodinated Diagnostic Agents (Verified Allergy, Intermediate, HIVES, ) Oxycodone (Verified Allergy, Intermediate, SHORTNESS OF BREATH, 08/08/17) wheezing ??? Dobutamine (Verified Allergy, Unknown, abd pain, 08/08/17) Perflutren (Verified Allergy, Unknown, abd pain, 08/08/17) Discharge Date / Findings Aug 08, 2017. mild gastritis; portal hypertensive gastropathy Medication Instructions Stopped Medication(s): ALL EXCEPT PROTONIX CARVEDIOL SYNTHROID Restart Stopped Medication(s): OK to resume home medications. as above Provider Instructions Activity Restrictions - No exercising or heavy lifting for 24 hours. - Do not drink alcohol the day of the procedure. - Do not drive a car or operate machinery until the day after the procedure. - Do not make any important decisions or sign important papers in 24 hours after the procedure. Following Day: - Return to full activity which may include returning to work/school. Diet Start your diet with liquids and light foods (jello, soup, juice, toast). Then eat your usual diet if not nauseated. Treatment For Common After Affects For mild abdominal pain, bloating, or excessive gas: - Rest - Eat lightly - Lie on right side Follow-Up Information Follow-up with DR. PRINCESS THOMAS as scheduled Anesthesia Information What You Should Know You have had a procedure that required some medicine to reduce anxiety and discomfort. This treatment is called moderate sedation. After receiving the treatment, you may be sleepy, but you will be able to breathe on your own. The effects of the treatment may last for several hours. Follow these instructions along with Activity/Diet recommendations noted above: * Do NOT do anything where dizziness or clumsiness would be dangerous. * Rest quietly at home today, then you can be up and about tomorrow. * Have a responsible person stay with you the rest of today. * You may have had an I.V. today. If so, you may take the dressing off later today. Recommendations Call your doctor if: * Trouble breathing * Continuous vomiting for more than 24 hours * Temperature above 101 degrees * Severe abdominal pain or bloating * Pain not relieved by pain medicine ordered * There is increased drainage or redness from any incision * A large amount of rectal bleeding greater than 2-3 tablespoons. (If you had a polyp/s removed or have hemorrhoids, a small amount of blood - from the rectum is to be expected.) * You have any unanswered questions or concerns. IN THE EVENT OF A SERIOUS EMERGENCY, GO TO THE NEAREST EMERGENCY ROOM Your discharge instructions were prepared by provider My Bartlett. Patient Instructions Signature Page Alex Bonner Patient (or Guardian) Signature/Date: I have read and understand the instructions given to me by my caregivers. Caregiver/RN/Doctor Signature/Date: The above-named patient and/or guardian has received patient instructions on this date. + Original Patient Signature Page (only) stays with chart. Please make copy for patient.
--- NOTE | 2017-08-08 09:05 | GI REPORT ---
Procedure Date: 08/08/2017 8:49 AM Procedure: Upper GI endoscopy Indications: Generalized abdominal pain, Cirrhosis rule out esophageal varices Medicines: Propofol per Anesthesia Complications: No immediate complications. Estimated blood loss: Minimal. Estimated Blood Loss: Estimated blood loss was minimal. Procedure: Pre-Anesthesia Assessment: - Prior to the procedure, a History and Physical was performed, and patient medications, allergies and sensitivities were reviewed. The patient's tolerance of previous anesthesia was reviewed. - The risks and benefits of the procedure and the sedation options and risks were discussed with the patient. All questions were answered and informed consent was obtained. - Patient identification and proposed procedure were verified prior to the procedure by the physician and the nurse. The procedure was verified in the pre-procedure area in the procedure room. - Mental Status Examination: alert and oriented. Airway Examination: normal oropharyngeal airway and neck mobility. Respiratory Examination: clear to auscultation. CV Examination: normal. Abdominal Examination: bowel sounds present, abdomen soft and non-tender, no masses or organomegaly noted. - ASA Grade Assessment: III - A patient with severe systemic disease. After obtaining informed consent, the endoscope was passed under direct vision. Throughout the procedure, the patient's blood pressure, pulse, and oxygen saturations were monitored continuously. The On-site loaner was introduced through the mouth, and advanced to the second part of duodenum. The upper GI endoscopy was accomplished without difficulty. The patient tolerated the procedure well. Findings: Grade I varices were found in the lower third of the esophagus. They were diminutive in size. Mild portal hypertensive gastropathy was found in the entire examined stomach. Mildly erythematous mucosa was found in the gastric antrum. Biopsies were taken with a cold forceps for Helicobacter pylori testing. Verification of patient identification for the specimen was done by the physician and nurse using the patient's name and date. Estimated blood loss was minimal. The examined duodenum was normal. Impression: - Grade I esophageal varices. - Portal hypertensive gastropathy. - Erythematous mucosa in the antrum. Biopsied. - Normal examined duodenum. Recommendation: - Await pathology results. - Follow an antireflux regimen. - Continue present medications. - Return to primary care physician as previously scheduled. - Discharge patient to home. My Bartlett D.O. My Bartlett DO 08/08/2017 9:04:41 AM This report has been signed electronically. Note Initiated On: 08/08/2017 8:49 AM I attest to the content of the Intraoperative Record and orders documented therein, exceptions below
--- NOTE | 2017-08-08 09:28 | Anesthesiology Progress Note ---
Anesthesia Post Op Note Date & Time Aug 08, 2017 at 09:28 Vital Signs Pain Intensity: 0 Vital Signs Past 12 Hours Date Time Temp Pulse Resp B/P (MAP) Pulse Ox O2 Delivery O2 Flow Rate FiO2 08/08/17 09:20 54 16 130/73 (92) 98 Room Air 08/08/17 09:05 50 16 102/61 (75) 99 Room Air 08/08/17 08:07 36.6 54 16 132/71 (91) 99 Room Air Notes Mental Status: alert / awake / arousable, participated in evaluation Pt Amnestic to Procedure: Yes Nausea / Vomiting: adequately controlled Pain: adequately controlled Airway Patency, RR, SpO2: stable & adequate BP & HR: stable & adequate Hydration State: stable & adequate Anesthetic Complications: no major complications apparent
[2017-08-08 09:35] VITALS: BP 138/84; PULSE 49; O2SAT 98
== END | disposition home or self-care (01) ==
LOC: C.GI 06:32
PROVIDERS: ATTEND Internal Medicine
DX: R10.13 Epigastric pain (principal); I85.00 Esophageal varices without bleeding; K31.89 Other diseases of stomach and duodenum; M19.90 Unspecified osteoarthritis, unspecified site; J45.909 Unspecified asthma, uncomplicated; K21.9 Gastro-esophageal reflux disease without esophagitis; I10 Essential (primary) hypertension; J44.9 Chronic obstructive pulmonary disease, unspecified; F32.9 Major depressive disorder, single episode, unspecified; I25.2 Old myocardial infarction; I25.10 Atherosclerotic heart disease of native coronary artery without angina pectoris; E11.9 Type 2 diabetes mellitus without complications; E03.9 Hypothyroidism, unspecified; K74.60 Unspecified cirrhosis of liver; N40.0 Benign prostatic hyperplasia without lower urinary tract symptoms; E78.5 Hyperlipidemia, unspecified; Z91.041 Radiographic dye allergy status; Z88.5 Allergy status to narcotic agent; Z88.8 Allergy status to other drugs, medicaments and biological substances; Z79.82 Long term (current) use of aspirin; Z86.73 Personal history of transient ischemic attack (TIA), and cerebral infarction without residual deficits; Z85.118 Personal history of other malignant neoplasm of bronchus and lung; Z87.442 Personal history of urinary calculi; Z90.49 Acquired absence of other specified parts of digestive tract; Z87.891 Personal history of nicotine dependence

== ENCOUNTER 2017-08-18 10:51 | Observation (INO) | payer OTHER, MEDICARE ==
[~2017-08-18] VITALS: Ht 175.3 cm; Wt 116.0 kg
[2017-08-18] VITALS (9 sets, daily range): BP systolic 121–140; BP diastolic 83–85; PULSE 69–87; TEMP 36.5; O2SAT 98–100; Ht 175.3 cm; Wt 116.0 kg
[~2017-08-18 10:51] MED LIST changes: -LIDOCAINE HCL 2% 2 ML VIAL (20MG/ML) ONE; -PROPOFOL IV EMULSION 10 MG/ML 20 ML VIAL IV ONE; -SODIUM CHLORIDE 0.9% 500ML 500 ML IV ONE
[2017-08-18] MEDS ORDERED: METHYLPREDNISOLONE 125 MG VIAL IV STA (11:06)
[2017-08-18] MEDS ORDERED: ALBUT/IPRATROP 3MG/0.5MG NEB 3 ML VIAL INH ONE (11:15)
--- NOTE | 2017-08-18 11:32 | DIAGNOSTIC IMAGING REPORT ---
CHEST ONE VIEW PORTABLE CLINICAL HISTORY: eval for pna dyspnea COMPARISON STUDY: 08/07/2017 FINDINGS: Mild stable cardiomegaly. Mild tortuosity thoracic aorta. Small right basilar pneumothorax diminished from the prior study. Prominent bibasilar interstitial change. IMPRESSION: 1. Prominent bibasilar interstitial change suggesting a component of basilar pneumonitis. 2. Small right basilar pneumothorax , improved from the prior exam. The above report was generated using voice recognition software. It may contain grammatical, syntax or spelling errors. Electronically signed by: Yayo Reyes M.D. 08/18/2017 11:31 AM Dictated Date/Time: 08/18/2017 11:29 AM
[2017-08-18 11:37] LABS: BASO % 0.7 %; BASO ABS # 0.05 K/uL (0-0.2); EOS % 6.4 %; EOS ABS # 0.45 K/uL (0-0.5); HEMATOCRIT 38.3 % (42-52); HEMOGLOBIN 12.8 g/dL (14.0-18.0); IG# 0.01 K/uL (0.00-0.02); LYMPH % 26.2 %; LYMPH ABS # 1.85 K/uL (1.2-3.4); MEAN CELL VOLUME 82.2 fL (80-100); MEAN CORPUSCULAR HEMOGLOBIN 27.5 pg (25-34); MEAN CORPUSCULAR HGB CONC 33.4 g/dl (32-36); MEAN PLATELET VOLUME 9.1 fL (7.4-10.4); MONO % 6.8 %; MONO ABS # 0.48 K/uL (0.11-0.59); NEUT % 59.8 %; NEUT ABS # 4.22 K/uL (1.4-6.5); PLATELET COUNT 121 K/uL (130-400); RED CELL DISTRIBUTION WIDTH CV 18.6 % (11.5-14.5); RED CELL DISTRIBUTION WIDTH SD 55.9 fL (36.4-46.3); WHITE BLOOD COUNT 7.06 K/uL (4.8-10.8)
[2017-08-18 11:50] LABS: INR 1.1 (0.9-1.1); PTT PATIENT 27.8 SECONDS (21.0-31.0)
[2017-08-18 11:53] LABS: BLOOD UREA NITROGEN 22 mg/dl (7-18); CALCIUM 10.2 mg/dl (8.5-10.1); CARBON DIOXIDE 23 mmol/L (21-32); CREATININE 1.26 mg/dl (0.60-1.40); GLUCOSE 153 mg/dl (70-99); POTASSIUM 3.4 mmol/L (3.5-5.1); SODIUM 142 mmol/L (136-145)
[2017-08-18] MEDS ORDERED: GABA-1219 PO (12:09)
[2017-08-18] MEDS ORDERED: BUDESONIDE 0.5 MG/2 ML VIAL (PULMICORT) INH PRN (12:30)
[2017-08-18] MEDS ORDERED: ALBUTEROL 0.083% NEBU SOLN 3 ML VIAL INH PRN (12:30)
[2017-08-18] MEDS ORDERED: NITROGLYCERIN 0.4 MG SL PER TAB CHARGE UT PRN (12:30)
--- NOTE | 2017-08-18 13:16 | History and Physical ---
History & Physical Date & Time of Service: Aug 18, 2017 at 13:07 Chief Complaint: Breathing Troubles, Severe Headache Primary Care Physician: Domo Alanis D.O. History of Present Illness Source: patient Mr. Alex Bonner is a 77 year old gentleman with significant Hx of COPD/asthma and lung malignancy s/p lobectomy. Other Hx includes Hypertension, Diabetes mellitus type II (on insulin therapy), Hypothyroidism, gout and stroke. Patient was in his usual state of health until yesterday afternoon when he developed shortness of breath of gradual onset. No associated symptoms and shortness of breath has a wax-wane presentation. He has uses nebulizer at home with mild relief of symptoms. He has intermittent cough which is nonproductive in nature. He denies fevers, chills, chest pain, palpitations, nausea or vomiting. Patient denies sick contacts or recent travel. In the emergency department patient was in respiratory distress but there were no episodes of hypoxia. Despite oxygen saturation being 99% on room air, his work of breathing was worrisome and was placed on BiPAP. After initiating noninvasive ventilation patient is much more comfortable and no longer tachypneic. In the emergency department patient received 1 dose of Solu-Medrol and 1 DuoNeb. Patient remains afebrile hemodynamically stable. There was concern of a small right basilar PTX seen on today's which improved from previous chest radiograph. ED physician consulted Dr. Liang in regards to BiPAP use and he felt that non invasive ventilation will not affect PTX. Will continue wit BiPAP Past Medical/Surgical History Medical Problems: (1) Abdominal pain (2) Abdominal pain of unknown etiology (3) Acute dyspnea (4) Altered mental status (5) Anemia (6) Asthma (7) Back pain (8) BPH (benign prostatic hyperplasia) (9) Bradycardia (10) C. difficile colitis (11) C. difficile diarrhea (12) Calcaneal spur (13) Carcinoma, lung (14) Carpal tunnel syndrome (15) Change in mental status (16) Chronic headache (17) Clostridium difficile diarrhea (18) Compression fracture (19) Confusion (20) COPD (chronic obstructive pulmonary disease) (21) COPD exacerbation (22) COPD exacerbation (23) CVA (cerebral vascular accident) (24) Dehydration (25) Diabetes (26) Diverticulitis (27) Gout (28) Headache (29) Hepatic encephalopathy (30) Hydronephrosis with renal calculous obstruction (31) Hyperammonemia (32) Hypertension (33) Liver disease (34) Liver failure (35) Low back strain (36) Palpitation (37) Pleural effusion (38) Rectal bleed (39) Right lower lobe lung mass (40) Right sided weakness (41) Right ureteral calculus (42) RUQ pain Surgical Problems: (1) S/P lobectomy of lung Family History Cancer FHx: hemochromatosis Heart disease Hypertension Social History Smoking Status: Never Smoker Drug Use: none Marital Status: Housing status: lives alone Occupational Status: retired Immunizations History of Influenza Vaccine: Unknown History of Tetanus Vaccine?: Unknown History of Pneumococcal: Unknown Allergies Coded Allergies: Meperidine (Verified Allergy, Severe, ANAPHYLAXIS, 08/18/17) Iodinated Diagnostic Agents (Verified Allergy, Intermediate, HIVES, ) Oxycodone (Verified Allergy, Intermediate, SHORTNESS OF BREATH, 08/18/17) wheezing ??? Dobutamine (Verified Allergy, Unknown, abd pain, 08/18/17) Perflutren (Verified Allergy, Unknown, abd pain, 08/18/17) Home Medications Scheduled Allopurinol (Zyloprim), 300 MG PO QAM Aspirin (Aspirin Chewable), 81 MG PO QAM Atorvastatin (Lipitor), 40 MG PO QPM Calcium Polycarbophil (Fiber Tabs), 1 TAB PO QAM Carvedilol (Coreg), 0.5 TAB PO BID Cholecalciferol (Vitamin D3), 1 TAB PO QPM Gabapentin (Gabapentin), 1 CAP PO DAILY Insulin Aspart (Novolog Flexpen), 1 DOSE SC TID Insulin Glargine (Toujeo Solostar), 20 UNITS SC HS Lactulose (Chronulac), 2 TBS PO QAM Levothyroxine Sodium (Synthroid), 50 MCG PO QAM Nitroglycerin (Nitrostat), 0.4 MG UT PRN Pantoprazole (Protonix), 40 MG PO HS Paroxetine Hcl (Paxil), 10 MG PO QAM Tamsulosin Hcl (Flomax), 0.4 MG PO QPM [Vitamin B12], 1 DOSE INJ MONTHLY Scheduled PRN Albuterol Sulf (Proventil 0.083% 2.5MG/3ML), 2.5 MG INH Q6 PRN for SOB/Wheezing Albuterol Sulfate (Proair Respiclick), 2 PUFFS INH Q6 PRN for SOB/Wheezing Budesonide (Pulmicort Respules 0.5MG/2ML), 2 ML INH BID PRN for PRN Review of Systems Constitutional: No fever, No chills, No sweats, No weight loss, No weakness, No fatigue, No problem reported Eyes: No worsening of vision, No eye pain, No redness, No discharge, No diplopia, No problem reported ENT: No hearing loss, No unusual epistaxis, No nasal symptoms, No sore throat, No tinnitus, No dental problems, No trouble swallowing, No problem reported Respiratory: + cough (nonproductive) Cardiovascular: No chest pain, No orthopnea, No PND, No edema, No claudication , No palpitations, No problem reported Abdomen: No pain, No nausea, No vomiting, No diarrhea, No constipation, No GI bleeding, No problem reported Musculoskeletal: No joint pain, No muscle pain, No swelling, No calf pain, No problem reported Neurologic: No memory loss, No paralysis, No weakness, No numbness/tingling, No vertigo, No balance problems, No problem reported Psychiatric: No depression symptoms, No anhedonism, No anxiety, No insomnia, No substance abuse, No problem reported Endocrine: No fatigue, No excessive thirst, No excessive urination, No problem reported Integumentary: No rash, No itch, No new/changing skin lesions, No color change , No bleeding, No problem reported Physical Exam Vital Signs Date Time Temp Pulse Resp B/P (MAP) Pulse Ox O2 Delivery O2 Flow Rate FiO2 08/18/17 12:54 81 08/18/17 12:06 74 20 153/90 100 Room Air 08/18/17 11:51 99 Room Air 08/18/17 11:43 69 19 100 BiPAP/CPAP 30 08/18/17 11:39 70 100 08/18/17 11:09 77 08/18/17 11:08 100 Nasal Cannula 3.0 08/18/17 10:53 36.5 76 32 155/86 98 Room Air General Appearance: no apparent distress Head: normocephalic, atraumatic Eyes: normal inspection, PERRL, EOMI Neck: supple, no adenopathy Respiratory/Chest: chest non-tender, lungs clear, + decreased breath sounds ( at bilateral bases), + pertinent finding (on BiPAP) Cardiovascular: regular rate, rhythm, no edema, no gallop, no JVD, no murmur, normal peripheral pulses Abdomen/GI: normal bowel sounds, non tender, soft, no organomegaly Back: no CVA tenderness Extremities/Musculoskelatal: normal inspection, no pedal edema, normal range of motion Neurologic/Psych: 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 as tested, no motor/sensory deficits, oriented x 3 Diagnostics Laboratory Results Results Past 24 Hours Test 08/18/17 11:05 08/18/17 11:12 Range/Units White Blood Count 7.06 4.8-10.8 K/uL Red Blood Count 4.66 4.7-6.1 M/uL Hemoglobin 12.8 14.0-18.0 g/dL Hematocrit 38.3 42-52 % Mean Corpuscular Volume 82.2 80-100 fL Mean Corpuscular Hemoglobin 27.5 25-34 pg Mean Corpuscular Hemoglobin Concent 33.4 32-36 g/dl Platelet Count 121 130-400 K/uL Mean Platelet Volume 9.1 7.4-10.4 fL Neutrophils (%) (Auto) 59.8 % Lymphocytes (%) (Auto) 26.2 % Monocytes (%) (Auto) 6.8 % Eosinophils (%) (Auto) 6.4 % Basophils (%) (Auto) 0.7 % Neutrophils # (Auto) 4.22 1.4-6.5 K/uL Lymphocytes # (Auto) 1.85 1.2-3.4 K/uL Monocytes # (Auto) 0.48 0.11-0.59 K/uL Eosinophils # (Auto) 0.45 0-0.5 K/uL Basophils # (Auto) 0.05 0-0.2 K/uL RDW Standard Deviation 55.9 36.4-46.3 fL RDW Coefficient of Variation 18.6 11.5-14.5 % Immature Granulocyte % (Auto) 0.1 % Immature Granulocyte # (Auto) 0.01 0.00-0.02 K/uL Prothrombin Time 11.1 9.0-12.0 SECONDS Prothromb Time International Ratio 1.1 0.9-1.1 Activated Partial Thromboplast Time 27.8 21.0-31.0 SECONDS Partial Thromboplastin Ratio 1.1 Sodium Level 142 136-145 mmol/L Potassium Level 3.4 3.5-5.1 mmol/L Chloride Level 111 98-107 mmol/L Carbon Dioxide Level 23 21-32 mmol/L Anion Gap 8.0 3-11 mmol/L Blood Urea Nitrogen 22 7-18 mg/dl Creatinine 1.26 0.60-1.40 mg/dl Estimated GFR () 63.8 Estimated GFR (Non- 55.0 BUN/Creatinine Ratio 17.5 10-20 Random Glucose 153 70-99 mg/dl Calcium Level 10.2 8.5-10.1 mg/dl Bedside Troponin I < 0.030 0-0.045 ng/ml Microbiology Results 08/18/17 Blood Culture, Received Pending 08/18/17 Blood Culture, Received Pending Diagnostic Radiology Chest Radiograph FINDINGS: Mild stable cardiomegaly. Mild tortuosity thoracic aorta. Small right basilar pneumothorax diminished from the prior study. Prominent bibasilar interstitial change. IMPRESSION: 1. Prominent bibasilar interstitial change suggesting a component of basilar pneumonitis. 2. Small right basilar pneumothorax , improved from the prior exam. Impression Assessment and Plan Yuri 77/M admitted for COPD exacerbation currently requiring non-invasive ventilation. Labs were overall unremarkable with exception of mild hypokalemia. Otherwise, patient is stable. While in the ED, patient has not desaturated but was placed on supplemental oxygen due to increase work of breathing. He is mentating appropriately. 1) COPD exacerbation - maintain on BiPAP - rec'd methylprednisolone 125 mg IV once; continue 60mg IV q8H - start azithromycine 500mg PO, 3 days - DuoNebs q4H scheduled with PRN q2H - incentive spirometry 2) Hypokalemia, mild - K 3.4 - order KCl 40 mEq PO once 3) Diabetes Mellitus type II - resume insulin therapy - check CBG as per nursing 4) Hypertension - resume BB 5) Hypothyroidism - stable; no active issues - resume levothyroxine 50 mcg PO qAM Diet: ADA, Heart Healthy Activity: ad sadi Precautions: Standard Code Status: FULL Resuscitation Status VTE Prophylaxis Will order VTE Prophylaxis: Yes
[2017-08-18] MEDS ORDERED: IV FLUIDS COMPLETED PRN (13:30)
[2017-08-18] MEDS ORDERED: GLUCAGON FOR INJ 1 MG VIAL SQ PRN (15:15)
[2017-08-18] MEDS ORDERED: DEXTROSE 50% 50 ML SYR IV PRN (15:15)
[2017-08-18] MEDS ORDERED: GLUCOSE 10 TABS/TUBE PO PRN (15:15)
[2017-08-18] MEDS ORDERED: GLUCOSE 40% GEL 15 GM TUBE PO PRN (15:15)
[2017-08-18] MEDS: ALBUT/IPRATROP 3MG/0.5MG NEB 3 ML VIAL INH SCH ×2 (15:17→19:26)
[2017-08-18] MEDS: METHYLPREDNISOLONE IV 60 MG in SYRINGE 0 ML IV SCH ×2 (15:56→23:56)
[2017-08-18] MEDS: HEPARIN SOD 5000 UNIT/0.5 ML CARP SQ SCH (15:59)
--- NOTE | 2017-08-18 17:30 | EMERGENCY ROOM VISIT NOTE ---
History Report prepared by Mary: Giuseppe Valadez Under the Supervision of: Dr. Connor Howard M.D. First contact with patient: 10:57 Chief Complaint: RESPIRATORY PROBLEMS Stated Complaint: BREATHING TROUBLES, SEVERE HEADACHE History of Present Illness The patient is a 77 year old male who presents to the Emergency Room with complaints of persistent general shortness of breath since 2099 last night. He has COPD and asthma. He is not on oxygen at home. He had lobectomy in the right lung due to lung cancer. He notes a cough since yesterday. He denies any fever, though states that he feels warm. He notes nausea and vomiting. He notes chest tightness. He denies any abdominal pain. Source of History: patient Onset: since 2099 last night Position: other (general) Quality: other (shortness of breath) Timing: other (persistent) Associated Symptoms: + cough, + chest pain (tightness), + nausea, + vomiting , No fevers, No abdominal pain Review of Systems See HPI for pertinent positives & negatives. A total of 10 systems reviewed and were otherwise negative. Past Medical & Surgical Medical Problems: (1) Acute dyspnea (2) Asthma (3) BPH (benign prostatic hyperplasia) (4) Bradycardia (5) Calcaneal spur (6) Carcinoma, lung (7) Carpal tunnel syndrome (8) Clostridium difficile diarrhea (9) COPD (chronic obstructive pulmonary disease) (10) COPD exacerbation (11) CVA (cerebral vascular accident) (12) Diabetes (13) Gout (14) Hepatic encephalopathy (15) Hypertension (16) Liver disease (17) Right lower lobe lung mass (18) Right ureteral calculus Surgical Problems: (1) S/P lobectomy of lung Family History Cancer FHx: hemochromatosis Heart disease Hypertension Social History Smoking Status: Never Smoker Alcohol Use: none Drug Use: none Marital Status: Housing Status: lives alone Occupation Status: retired Current/Historical Medications Scheduled Allopurinol (Zyloprim), 300 MG PO QAM Aspirin (Aspirin Chewable), 81 MG PO QAM Atorvastatin (Lipitor), 40 MG PO QPM Calcium Polycarbophil (Fiber Tabs), 1 TAB PO QAM Carvedilol (Coreg), 0.5 TAB PO BID Cholecalciferol (Vitamin D3), 1 TAB PO QPM Gabapentin (Gabapentin), 1 CAP PO DAILY Insulin Aspart (Novolog Flexpen), 1 DOSE SC TID Insulin Glargine (Toujeo Solostar), 20 UNITS SC HS Lactulose (Chronulac), 2 TBS PO QAM Levothyroxine Sodium (Synthroid), 50 MCG PO QAM Nitroglycerin (Nitrostat), 0.4 MG UT PRN Pantoprazole (Protonix), 40 MG PO HS Paroxetine Hcl (Paxil), 10 MG PO QAM Tamsulosin Hcl (Flomax), 0.4 MG PO QPM [Vitamin B12], 1 DOSE INJ MONTHLY Scheduled PRN Albuterol Sulf (Proventil 0.083% 2.5MG/3ML), 2.5 MG INH Q6 PRN for SOB/Wheezing Albuterol Sulfate (Proair Respiclick), 2 PUFFS INH Q6 PRN for SOB/Wheezing Budesonide (Pulmicort Respules 0.5MG/2ML), 2 ML INH BID PRN for PRN Allergies Coded Allergies: Meperidine (Verified Allergy, Severe, ANAPHYLAXIS, 08/18/17) Iodinated Diagnostic Agents (Verified Allergy, Intermediate, HIVES, ) Oxycodone (Verified Allergy, Intermediate, SHORTNESS OF BREATH, 08/18/17) wheezing ??? Dobutamine (Verified Allergy, Unknown, abd pain, 08/18/17) Perflutren (Verified Allergy, Unknown, abd pain, 08/18/17) Physical Exam Vital Signs Date Time Temp Pulse Resp B/P (MAP) Pulse Ox O2 Delivery O2 Flow Rate FiO2 08/18/17 12:06 74 20 153/90 100 Room Air 08/18/17 11:51 99 Room Air 08/18/17 11:43 69 19 100 BiPAP/CPAP 30 08/18/17 11:39 70 100 08/18/17 11:09 77 08/18/17 11:08 100 Nasal Cannula 3.0 08/18/17 10:53 36.5 76 32 155/86 98 Room Air Physical Exam Constitutional: Vital signs reviewed. The patient has obvious respiratory distress with accessory muscle use and retractions. Unable to speak in full sentences. Eyes: Pupils are equal round reactive to light. Conjunctiva are noninjected. ENT: Pharynx is clear without erythema or exudate. Mucous membranes are slightly dry. Neck supple without meningeal signs. Respiratory: Diffuse wheezing bilaterally. Breath sounds are equal bilaterally. Cardiovascular: Regular rate and rhythm. No rubs or gallops. GI: Soft, nondistended and nontender. Bowel sounds are present. Musculoskeletal: No peripheral edema. No lower extremity tenderness. Integumentary: No cyanosis. Neurological: The patient is awake and alert. No focal deficits. Psychiatric: Unable to assess. Medical Decision & Procedures ER Provider Diagnostic Interpretation: Radiology results as stated below per my review and the radiologist's interpretation: CHEST ONE VIEW PORTABLE CLINICAL HISTORY: eval for pna dyspnea COMPARISON STUDY: 08/07/2017 FINDINGS: Mild stable cardiomegaly. Mild tortuosity thoracic aorta. Small right basilar pneumothorax diminished from the prior study. Prominent bibasilar interstitial change. IMPRESSION: 1. Prominent bibasilar interstitial change suggesting a component of basilar pneumonitis. 2. Small right basilar pneumothorax , improved from the prior exam. The above report was generated using voice recognition software. It may contain grammatical, syntax or spelling errors. Electronically signed by: Yayo Reyes M.D. 08/18/2017 11:31 AM Dictated Date/Time: 08/18/2017 11:29 AM Laboratory Results 08/18/17 11:05 Red Blood Count 4.66, Mean Corpuscular Volume 82.2, Mean Corpuscular Hemoglobin 27.5, Mean Corpuscular Hemoglobin Concent 33.4, Mean Platelet Volume 9.1, Neutrophils (%) (Auto) 59.8, Lymphocytes (%) (Auto) 26.2, Monocytes (%) (Auto) 6.8, Eosinophils (%) (Auto) 6.4, Basophils (%) (Auto) 0.7, Neutrophils # (Auto) 4.22, Lymphocytes # (Auto) 1.85, Monocytes # (Auto) 0.48, Eosinophils # (Auto) 0.45, Basophils # (Auto) 0.05 08/18/17 11:05 Test 08/18/17 11:05 08/18/17 11:12 White Blood Count 7.06 K/uL (4.8-10.8) Red Blood Count 4.66 M/uL (4.7-6.1) Hemoglobin 12.8 g/dL (14.0-18.0) Hematocrit 38.3 % (42-52) Mean Corpuscular Volume 82.2 fL (80-100) Mean Corpuscular Hemoglobin 27.5 pg (25-34) Mean Corpuscular Hemoglobin Concent 33.4 g/dl (32-36) Platelet Count 121 K/uL (130-400) Mean Platelet Volume 9.1 fL (7.4-10.4) Neutrophils (%) (Auto) 59.8 % Lymphocytes (%) (Auto) 26.2 % Monocytes (%) (Auto) 6.8 % Eosinophils (%) (Auto) 6.4 % Basophils (%) (Auto) 0.7 % Neutrophils # (Auto) 4.22 K/uL (1.4-6.5) Lymphocytes # (Auto) 1.85 K/uL (1.2-3.4) Monocytes # (Auto) 0.48 K/uL (0.11-0.59) Eosinophils # (Auto) 0.45 K/uL (0-0.5) Basophils # (Auto) 0.05 K/uL (0-0.2) RDW Standard Deviation 55.9 fL (36.4-46.3) RDW Coefficient of Variation 18.6 % (11.5-14.5) Immature Granulocyte % (Auto) 0.1 % Immature Granulocyte # (Auto) 0.01 K/uL (0.00-0.02) Prothrombin Time 11.1 SECONDS (9.0-12.0) Prothromb Time International Ratio 1.1 (0.9-1.1) Activated Partial Thromboplast Time 27.8 SECONDS (21.0-31.0) Partial Thromboplastin Ratio 1.1 Anion Gap 8.0 mmol/L (3-11) Estimated GFR () 63.8 Estimated GFR (Non- 55.0 BUN/Creatinine Ratio 17.5 (10-20) Calcium Level 10.2 mg/dl (8.5-10.1) Bedside Troponin I < 0.030 ng/ml (0-0.045) Laboratory results as reviewed by me. Medications Administered Medications (Trade) Dose Ordered Sig/Ronna Route Start Time Stop Time Status Last Admin Dose Admin Methylprednisolone Sodium Succinate (Solu-Medrol IV) 125 mg NOW STAT IV 08/18/17 11:06 08/18/17 11:08 DC 3/30/18 11:24 125 MG Albuterol/ Ipratropium (Duoneb) 12 ml ONE ONCE INH 08/18/17 11:15 08/18/17 11:16 DC 08/18/17 11:30 12 ML ECG Per My Interpretation Indication: SOB/dyspnea Rate (beats per minute): 76 Rhythm: normal sinus Findings: T-wave inversion (Lateral), other (No ST elevations) ED Course 1102: The patient was evaluated in room A11B. A complete history and physical exam was performed. 1106: Ordered Solu-Medrol 125 mg IV 1115: Ordered DuoNeb 12 ml INH 1200: I reassessed the patient at this time. He is feeling better. The patients wheezing is less prominent, but still present. I removed the BiPAP due to small PNX on XR. The PNX is long-standing. 1207: I spoke with Dr. Leblanc, [facility] hospitalist. We discussed the patient's case. The patient will be evaluated by the [facility] for further management. 1225: I reassessed the patient at this time. He is having respiratory difficulty without the BiPAP due to the risk of increasing the PNX. 1231: I spoke with Dr. Liang, thoracic surgeon. We discussed the patient's case. The patient will be further evaluated. He said not to worry about the BiPAP, it will not increase the PNX. 1233: I reassessed the patient at this time. I informed the patient of Dr. Liang's instructions. The patient is now back on BiPAP. 1238: I updated Dr. Leblanc regarding Dr. Liang's recommendations. 1255: I reassessed the patient. Dr. Leblanc is in the room. Patient is doing better on BiPAP. Medical Decision This is a 77-year-old male who presents with difficulty breathing and cough. Differential diagnosis includes COPD exacerbation, respiratory failure, pneumothorax, pneumonia, bronchitis. I did perform a limited focused review of portions of the patient's old chart on the electronic medical record. The patient had an EGD August 08, 2017, which showed Grade 1 esophageal varices and portal hypertensive gastropathy. He had a right thoracentesis by Dr. Liang in April 2017. I did evaluate the patient as noted above. The patient is in obvious respiratory distress. The patient cannot speak in full sentences. He is using his accessory muscles and has retractions. I did order BiPAP as well as a continuous hour-long DuoNeb. IV access was established. The patient was placed on a continuous quality assurance monitor final. I did treat him with Solu-Medrol IV. I did order and personally review the patient's 12-lead EKG and chest x-ray as described above. Chest x-ray demonstrated a small right-sided pneumothorax which is decreased in size from previously. Because of his pneumothorax and felt it was prudent to take him off of the BiPAP and case it could potentially increase the size of this pneumothorax. I did order and review the patient's blood work as noted in the electronic medical record. I did reassess the patient. He had worsening difficulty breathing and wheezing. I called Dr. Haider and discussed the case with him. He stated that he would not be concerned about the BiPAP increase in the size of the pneumothorax I recommended he be placed back on it. I did discuss this with the patient and placed him back on the BiPAP. He did appear to have improvement with the BiPAP. I did recommend hospitalization and discussed the case with the hospitalist and geriatric case manager. Medication Reconcilliation Current Medication List: was personally reviewed by me Blood Pressure Screening Patient's blood pressure: Elevated blood pressure Blood pressure disposition: Referred to PCP Consults Time Called: 1205 Consulting Physician: ADAIR Valladares hospitalist Returned Call: 1207 I spoke with ADAIR Valladares hospitalist. We discussed the patient's case. The patient will be evaluated by the [facility] for further management. 1238: I updated Dr. Leblanc regarding Dr. Liang's recommendations. Additional Consults: Time Called: 1227 Consulted Physician: Dr. Liang, thoracic surgeon Returned Call: 1231 Additional Comments: I spoke with Dr. Liang, thoracic surgeon. We discussed the patient's case. The patient will be further evaluated. He said not to worry about the BiPAP, it will not increase the PNX. Impression Primary Impression: Respiratory failure Additional Impressions: COPD exacerbation Pneumothorax on right Critical Care I have personally spent 35 minutes of critical care time in the direct management of this patient. This includes bedside care, interpretation of diagnostic studies and testing, discussion with consultants and patient, and other required patient management activities. This time is in excess of all separately billable procedures. Scribe Attestation The scribe's documentation has been prepared under my direct and personally reviewed by me in its entirety. I confirm that the note above accurately reflects all work, treatment, procedures, and medical decision making performed by me. Departure Information Dispostion Being Evaluated By Hospitalist Referrals Domo Alanis D.O. (PCP) Patient Instructions My [facility] Problem Qualifiers Primary Impression: Respiratory failure Chronicity: acute Respiratory failure complication: unspecified whether with hypoxia or hypercapnia Qualified Codes: J96.00 - Acute respiratory failure, unspecified whether with hypoxia or hypercapnia
[2017-08-18] MEDS ORDERED: CARVEDILOL 6.25 MG TAB PO SCH (20:00)
[2017-08-18] MEDS: CARVEDILOL 12.5 MG TAB PO SCH (20:30)
[2017-08-18] MEDS: ATORVASTATIN 40 MG TAB PO SCH (20:31)
[2017-08-18] MEDS: PANTOprazole SOD 40 MG TAB PO SCH (20:31)
[2017-08-18] MEDS: TAMSULOSIN HCL 0.4 MG CAP PO SCH (20:31)
[2017-08-18] MEDS: INSULIN ASPART 100 UNITS/ML 3 ML PEN SC SCH (20:39)
[2017-08-18] MEDS ORDERED: INSULIN GLARGINE SOLOSTAR 100 UNITS/ML 3 ML PEN SC SCH (21:00)
[2017-08-18] MEDS ORDERED: NON-FORMULARY MEDICATION (Insulin Glargine (Toujeo Solostar) 20 UNITS) SC SCH (21:00)
[2017-08-19] VITALS (7 sets, daily range): BP systolic 133–148; BP diastolic 80–89; PULSE 57–80; TEMP 36.4–36.5; O2SAT 94–100
[2017-08-19] MEDS ORDERED: hydrOXYzine HCL 25 MG TAB PO PRN (00:15)
[2017-08-19] MEDS: LEVOTHYROXINE 50 MCG TAB PO SCH (06:14)
[2017-08-19] MEDS: ALBUT/IPRATROP 3MG/0.5MG NEB 3 ML VIAL INH SCH ×4 (07:02→18:45)
[2017-08-19] MEDS: LACTULOSE SYRUP 20 GM/30 ML UDC PO SCH (08:00)
[2017-08-19] MEDS: CALCIUM POLYCARBOPHIL 1 TAB PO SCH (08:26)
[2017-08-19] MEDS: PAROXETINE 20 MG TAB PO SCH (08:27)
[2017-08-19] MEDS: ALLOPURINOL 300 MG TAB PO SCH (08:27)
[2017-08-19] MEDS: ASPIRIN 81 MG ECTAB PO SCH (08:27)
[2017-08-19] MEDS: GABAPENTIN 300 MG CAP PO SCH (08:27)
[2017-08-19] MEDS: AZITHROMYCIN 250 MG TAB PO SCH (08:28)
[2017-08-19] MEDS: METHYLPREDNISOLONE IV 60 MG in SYRINGE 0 ML IV SCH ×2 (08:28→16:09)
[2017-08-19] MEDS: CARVEDILOL 12.5 MG TAB PO SCH ×2 (08:28→19:32)
[2017-08-19] MEDS: INSULIN ASPART 100 UNITS/ML 3 ML PEN SC SCH ×4 (08:31→21:18)
[2017-08-19] MEDS: HEPARIN SOD 5000 UNIT/0.5 ML CARP SQ SCH ×3 (08:32→16:00)
[2017-08-19] MEDS ORDERED: NURSING VERBAL MED ORDER ONE (12:30)
[2017-08-19] MEDS ORDERED: DiphenhydrAMINE HCL 50 MG/ML VIAL IV ONE (12:30)
--- NOTE | 2017-08-19 16:56 | Progress Note ---
Subjective Date of Service: Aug 19, 2017. Subjective Pt evaluation today including: conversation w/ patient, physical exam, chart review, lab review, conversation w/ group segment consultant, review of inpatient medication list Pain: No pain reported PO Intake: Good oral intake Voiding: no voiding problems, no incontinence, badillo catheter in place Patient is seen and examined by me. Patient denies chest pain, shortness of breath, dizziness, palpitation or loss of consciousness. Patient respiratory status improved. Patient is sitting comfortably and denies any difficulty breathing. Patient denies abdominal pain, urinary symptoms, nausea, vomiting and diarrhea. Patient wants to go home for [place] however still requiring higher dose of steroids. Problem List Medical Problems: (1) Abdominal pain Status: Acute (2) Abdominal pain of unknown etiology Status: Acute (3) Altered mental status Status: Acute (4) Anemia Status: Acute (5) Back pain Status: Acute (6) C. difficile colitis Status: Acute (7) C. difficile diarrhea Status: Acute (8) Chronic headache Status: Acute (9) Compression fracture Status: Acute (10) Confusion Status: Acute (11) COPD exacerbation Status: Acute (12) Dehydration Status: Acute (13) Headache Status: Acute (14) Hydronephrosis with renal calculous obstruction Status: Acute (15) Low back strain Status: Acute (16) Palpitation Status: Acute (17) Pleural effusion Status: Acute (18) Pneumothorax on right Status: Acute (19) Respiratory failure Status: Acute (20) Right sided weakness Status: Acute (21) RUQ pain Status: Acute Review of Systems Constitutional: No fever, No sweats Respiratory: + cough, + wheezing, + dyspnea on exertion All Other Systems: Reviewed and Negative Medications Medications (Trade) Dose Ordered Sig/Ronna Route Start Time Stop Time Status Last Admin Dose Admin Allopurinol (Zyloprim Tab) 300 mg QAM PO 08/19/17 08:00 09/18/17 08:59 08/19/17 08:27 300 MG Aspirin (Ecotrin Tab) 81 mg QAM PO 08/19/17 08:00 09/18/17 08:59 08/19/17 08:27 81 MG Atorvastatin Calcium (Lipitor Tab) 40 mg QPM PO 08/18/17 21:00 09/17/17 20:59 08/18/17 20:31 40 MG Calcium Polycarbophil (Fibercon Tab) 1 tab QAM PO 08/19/17 08:00 09/18/17 08:59 08/19/17 08:26 1 TAB Carvedilol (Coreg Tab) 18.75 mg BID PO 08/18/17 20:00 09/17/17 20:59 08/19/17 08:28 18.75 MG Gabapentin (Neurontin Cap) 300 mg DAILY PO 08/19/17 08:00 09/18/17 08:59 08/19/17 08:27 300 MG Levothyroxine Sodium (Synthroid Tab) 50 mcg DAILYBB PO 08/19/17 06:30 09/18/17 06:29 08/19/17 06:14 50 MCG Pantoprazole Sodium (Protonix Tab) 40 mg HS PO 08/18/17 21:00 09/17/17 20:59 08/18/17 20:31 40 MG Paroxetine HCl (pAXil TAB) 10 mg QAM PO 08/19/17 08:00 09/18/17 08:59 08/19/17 08:27 10 MG Tamsulosin HCl (Flomax Cap) 0.4 mg QPM PO 08/18/17 21:00 09/17/17 20:59 08/18/17 20:31 0.4 MG Azithromycin (Zithromax Tab) 500 mg QAM PO 08/19/17 08:00 08/21/17 08:01 08/19/17 08:28 500 MG Insulin Glargine (Lantus Solostar Pen) 16 units HS SC 08/18/17 21:00 08/18/17 21:03 DC 08/18/17 20:33 16 UNITS Insulin Aspart (novoLOG ASPART) SLIDING SCALE ACHS SC 08/18/17 21:00 09/17/17 20:59 08/19/17 12:33 11 UNITS Hydroxyzine HCl (Vistaril Tab) 25 mg QPM PRN PO 08/19/17 00:15 09/18/17 00:14 08/19/17 01:12 25 MG Diphenhydramine HCl (Benadryl Inj) 25 mg ONE ONCE IV 08/19/17 12:30 08/19/17 12:31 DC 08/19/17 14:04 25 MG Objective Vital Signs Date Time Temp Pulse Resp B/P (MAP) Pulse Ox O2 Delivery O2 Flow Rate FiO2 08/19/17 16:04 36.4 57 18 148/89 (108) 98 Room Air 08/19/17 11:12 63 18 94 Nasal Cannula 4.0 08/19/17 08:20 Room Air 08/19/17 08:00 99 Room Air 08/19/17 07:56 36.4 63 18 135/80 (98) 100 Nasal Cannula 4.0 08/19/17 07:02 66 18 99 Nasal Cannula 4.0 08/19/17 00:04 36.5 80 20 133/80 (97) 100 Nasal Cannula 4.0 08/19/17 00:00 Nasal Cannula 4.0 08/18/17 20:28 87 121/83 (96) 08/18/17 19:40 87 18 99 Nasal Cannula 4.0 Physical Exam General Appearance: no apparent distress Eyes: EOMI Neck: supple, no adenopathy Cardiovascular: regular rate, rhythm, no edema, no murmur Abdomen: normal bowel sounds, non tender, soft Extremities: normal range of motion, no pedal edema Neurologic/Psychiatric: alert, normal mood/affect, oriented x 3 Skin: no rash Laboratory Results Last 24 Hours Test 08/18/17 17:00 08/18/17 20:06 08/19/17 07:36 08/19/17 11:23 Bedside Glucose 148 mg/dl 238 mg/dl 182 mg/dl 208 mg/dl Assessment and Plan Yuri 77/M admitted for COPD exacerbation currently requiring non-invasive ventilation. Labs were overall unremarkable with exception of mild hypokalemia. Otherwise, patient is stable. While in the ED, patient has not desaturated but was placed on supplemental oxygen due to increase work of breathing. He is mentating appropriately. 1) COPD exacerbation, improving, oxygen saturation 98% at room air. - Use BiPAP intermittent as needed, we will try to do a 6 minute walk test to see supplement oxygen requirement at home. - We will decrease methylprednisolone to 40 mg IV 3 times daily - Continue azithromycine 500mg PO - DuoNebs q4H scheduled with PRN q2H 2) Diabetes Mellitus type II - resume insulin therapy -ADA diet. 3) Hypertension -Continue medication 4) Hypothyroidism - stable; no active issues - resume levothyroxine 50 mcg PO qAM Diet: ADA, Heart Healthy Precautions: Standard Code Status: FULL Continued [facility] stay due to: multiple IV medications needed Discharge planning: home
[2017-08-19 18:29] LABS: CALCIUM 9.9 mg/dl (8.5-10.1); CREATININE 1.51 mg/dl (0.60-1.40)
[2017-08-19] MEDS: PANTOprazole SOD 40 MG TAB PO SCH (19:31)
[2017-08-19] MEDS: TAMSULOSIN HCL 0.4 MG CAP PO SCH (19:31)
[2017-08-19] MEDS: ATORVASTATIN 40 MG TAB PO SCH (19:31)
[2017-08-19] MEDS: INSULIN GLARGINE SOLOSTAR 100 UNITS/ML 3 ML PEN SC SCH (21:18)
[2017-08-20] VITALS (9 sets, daily range): BP systolic 122–145; BP diastolic 76–84; PULSE 57–81; TEMP 36.4–36.8; O2SAT 94–99
[2017-08-20] MEDS: HEPARIN SOD 5000 UNIT/0.5 ML CARP SQ SCH ×3 (00:39→15:27)
[2017-08-20] MEDS: METHYLPREDNISOLONE IV 40 MG in SYRINGE 0 ML IV SCH ×3 (00:40→15:26)
[2017-08-20] MEDS: LEVOTHYROXINE 50 MCG TAB PO SCH (06:25)
[2017-08-20] MEDS: ALBUT/IPRATROP 3MG/0.5MG NEB 3 ML VIAL INH SCH ×4 (06:58→18:56)
[2017-08-20] MEDS: GABAPENTIN 300 MG CAP PO SCH (07:48)
[2017-08-20] MEDS: CARVEDILOL 12.5 MG TAB PO SCH ×2 (07:48→19:57)
[2017-08-20] MEDS: ALLOPURINOL 300 MG TAB PO SCH (07:49)
[2017-08-20] MEDS: ASPIRIN 81 MG ECTAB PO SCH (07:49)
[2017-08-20] MEDS: CALCIUM POLYCARBOPHIL 1 TAB PO SCH (07:49)
[2017-08-20] MEDS: AZITHROMYCIN 250 MG TAB PO SCH (07:49)
[2017-08-20] MEDS: LACTULOSE SYRUP 20 GM/30 ML UDC PO SCH (07:50)
[2017-08-20] MEDS: PAROXETINE 20 MG TAB PO SCH (07:50)
[2017-08-20] MEDS: INSULIN ASPART 100 UNITS/ML 3 ML PEN SC SCH ×4 (08:59→20:24)
[2017-08-20] MEDS ORDERED: COUGH DROP (SUGAR FREE) LOZ 24 LOZ/1 BOX LOZ PRN (09:15)
[2017-08-20] MEDS ORDERED: NURSING DECISION MEDICATION ORDER SCH (09:15)
--- NOTE | 2017-08-20 11:32 | Progress Note ---
Subjective Date of Service: Aug 20, 2017. Subjective Pt evaluation today including: conversation w/ patient, physical exam, chart review, lab review, review of studies, review of inpatient medication list Pain: no pain Voiding: no voiding problems Pt did drop his o2 saturation to 90% on ambulation and did feel well. Pt still has wheezing, and sob but denies cp, nausea, vomiting and diarrhea. Problem List Medical Problems: (1) Abdominal pain Status: Acute (2) Abdominal pain of unknown etiology Status: Acute (3) Altered mental status Status: Acute (4) Anemia Status: Acute (5) Back pain Status: Acute (6) C. difficile colitis Status: Acute (7) C. difficile diarrhea Status: Acute (8) Chronic headache Status: Acute (9) Compression fracture Status: Acute (10) Confusion Status: Acute (11) COPD exacerbation Status: Acute (12) Dehydration Status: Acute (13) Headache Status: Acute (14) Hydronephrosis with renal calculous obstruction Status: Acute (15) Low back strain Status: Acute (16) Palpitation Status: Acute (17) Pleural effusion Status: Acute (18) Pneumothorax on right Status: Acute (19) Respiratory failure Status: Acute (20) Right sided weakness Status: Acute (21) RUQ pain Status: Acute Review of Systems Constitutional: + fatigue, No fever, No chills, No sweats, No weight loss Respiratory: + cough, + sputum, + wheezing, + shortness of breath, + dyspnea on exertion, No dyspnea at rest, No hemoptysis Cardiac: No chest pain, No edema, No palpitations Abdomen: No pain, No nausea, No vomiting, No diarrhea, No constipation Psychiatric: No depression symptoms, No anxiety Endo: No fatigue Skin: No rash Medications Medications (Trade) Dose Ordered Sig/Ronna Route Start Time Stop Time Status Last Admin Dose Admin Insulin Glargine (Lantus Solostar Pen) 20 units HS SC 08/19/17 21:00 09/18/17 20:59 08/19/17 21:18 20 UNITS Diphenhydramine HCl (Benadryl Inj) 25 mg ONE ONCE IV 08/19/17 12:30 08/19/17 12:31 DC 08/19/17 14:04 25 MG Methylprednisolone Sodium Succinate 40 mg/Syringe 0.64 ml @ 1.5 mls/min Q8H IV 08/20/17 00:00 09/17/17 15:59 08/20/17 07:49 1.5 MLS/MIN Objective Vital Signs Date Time Temp Pulse Resp B/P (MAP) Pulse Ox O2 Delivery O2 Flow Rate FiO2 08/20/17 11:20 81 18 96 Room Air 08/20/17 08:10 Room Air 08/20/17 08:00 97 Room Air 08/20/17 07:53 36.4 60 20 122/76 (91) 99 Room Air 08/20/17 06:58 73 18 94 Room Air 08/20/17 00:30 36.7 60 18 127/77 (94) 99 Nasal Cannula 2.0 08/20/17 00:00 Room Air 08/19/17 20:00 Room Air 08/19/17 18:45 74 18 98 Room Air 08/19/17 16:04 36.4 57 18 148/89 (108) 98 Room Air 08/19/17 16:00 Room Air Physical Exam General Appearance: no apparent distress, + obese Eyes: normal inspection, EOMI Neck: supple, no adenopathy Respiratory/Chest: no respiratory distress, no accessory muscle use, + rhonchi , + wheezing Cardiovascular: regular rate, rhythm, no edema, no murmur Abdomen: normal bowel sounds, non tender, soft Extremities: normal range of motion, non-tender, normal inspection, no pedal edema, no calf tenderness Neurologic/Psychiatric: alert, normal mood/affect, oriented x 3 Skin: no rash Lymphatic: no adenopathy Laboratory Results Last 24 Hours Test 08/19/17 16:38 08/19/17 17:47 08/19/17 19:59 08/20/17 07:46 Bedside Glucose 169 mg/dl 185 mg/dl 166 mg/dl Sodium Level 136 mmol/L Potassium Level 4.0 mmol/L Chloride Level 106 mmol/L Carbon Dioxide Level 24 mmol/L Anion Gap 7.0 mmol/L Blood Urea Nitrogen 35 mg/dl Creatinine 1.51 mg/dl Est Creatinine Clear Calc Drug Dose 52.3 ml/min Estimated GFR () 51.3 Estimated GFR (Non- 44.2 BUN/Creatinine Ratio 23.2 Random Glucose 174 mg/dl Calcium Level 9.9 mg/dl Assessment and Plan Yuri 77/M admitted for COPD exacerbation currently requiring non-invasive ventilation. Labs were overall unremarkable with exception of mild hypokalemia. Otherwise, patient is stable. While in the ED, patient has not desaturated but was placed on supplemental oxygen due to increase work of breathing. He is mentating appropriately. 1) COPD exacerbation, improving, oxygen saturation 96% at room air at 2L NC - Use BiPAP intermittent as needed, we will try to do a 2 step test to see supplement oxygen requirement at home. - Continue methylprednisolone to 40 mg IV 3 times daily - Continue azithromycine 500mg PO - DuoNebs q4H scheduled with PRN q2H - Not ready to go home today 2) Diabetes Mellitus type II - resume insulin therapy -ADA diet. 3) Hypertension -Continue medication 4) Hypothyroidism - stable; no active issues - resume levothyroxine 50 mcg PO qAM Diet: ADA, Heart Healthy Precautions: Standard Code Status: FULL Continued [facility] stay due to: multiple IV medications needed Discharge planning: home
[2017-08-20] MEDS: PANTOprazole SOD 40 MG TAB PO SCH (19:56)
[2017-08-20] MEDS: ATORVASTATIN 40 MG TAB PO SCH (19:56)
[2017-08-20] MEDS: TAMSULOSIN HCL 0.4 MG CAP PO SCH (19:57)
[2017-08-20] MEDS: INSULIN GLARGINE SOLOSTAR 100 UNITS/ML 3 ML PEN SC SCH (20:25)
[2017-08-21] VITALS (7 sets, daily range): BP systolic 111–134; BP diastolic 73–81; PULSE 52–66; TEMP 36.3–36.4; O2SAT 98–100
[2017-08-21] MEDS: METHYLPREDNISOLONE IV 40 MG in SYRINGE 0 ML IV SCH ×3 (00:14→15:46)
[2017-08-21] MEDS: HEPARIN SOD 5000 UNIT/0.5 ML CARP SQ SCH ×3 (00:15→15:47)
[2017-08-21] MEDS: LEVOTHYROXINE 50 MCG TAB PO SCH (06:39)
[2017-08-21] MEDS: ALBUT/IPRATROP 3MG/0.5MG NEB 3 ML VIAL INH SCH ×3 (07:06→15:09)
[2017-08-21] MEDS: CARVEDILOL 12.5 MG TAB PO SCH (07:38)
[2017-08-21] MEDS: ASPIRIN 81 MG ECTAB PO SCH (07:39)
[2017-08-21] MEDS: PAROXETINE 20 MG TAB PO SCH (07:39)
[2017-08-21] MEDS: ALLOPURINOL 300 MG TAB PO SCH (07:40)
[2017-08-21] MEDS: AZITHROMYCIN 250 MG TAB PO SCH (07:40)
[2017-08-21] MEDS: CALCIUM POLYCARBOPHIL 1 TAB PO SCH (07:40)
[2017-08-21] MEDS: GABAPENTIN 300 MG CAP PO SCH (07:40)
[2017-08-21] MEDS: LACTULOSE SYRUP 20 GM/30 ML UDC PO SCH (07:41)
--- NOTE | 2017-08-21 07:59 | SURGICAL CONSULTATION ---
DATE OF CONSULTATION: 08/19/2017 REASON FOR CONSULTATION: Right pneumothorax. HISTORY OF PRESENT ILLNESS: Alex Bonner is a 77-year-old male that I know well. He underwent right lower lobectomy. This was robot-assisted thoracoscopic wedge resection and we had to do a limited thoracotomy. He did well with the surgery on 05/10/2017 but developed a right pleural effusion, and as an outpatient on 05/19/2017, I performed a thoracentesis and drained approximately 600 mL of fluid. He had a small pneumothorax on the right base where he had incomplete expansion. We had been watching this and really it is interesting that he has not collected any fluid there and the pneumothorax has gotten much smaller. He had been doing well at home, although at 77 and with multiple issues including COPD, he has been a bit slow to recover from this surgery. 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 His nodes were all negative for carcinoma. As that was the case, he was not treated with chemotherapy. Mr. Bonner was recovering. He has been working on his truck. He has been walking. He does get out of breath. He does have fairly significant chronic obstructive pulmonary disease. The patient awakened yesterday from sleep and noted rather acute onset of dyspnea and was markedly wheezing. He presented to the Emergency Room and they placed him on BiPAP. They were a bit concerned because of the pneumothorax; however, this has gotten much smaller and I did not think that it should affect our decision to use BiPAP on him at all. He did well overnight. This morning he is on room air with excellent saturations and would like to go home. From my perspective, I believe Mr. Bonner could be discharged. We have him scheduled for followup in the office with a CT scan in the near future. I thought he sounded good with no wheezing, whatsoever. His incisions are clean. He has very little in the way of pain. He does have decreased breath sounds in the right base but overall I think he looks quite good. Thank you very much for asking me to see this patient. We will follow up with him in the office. PATRICIA
[2017-08-21] MEDS: INSULIN ASPART 100 UNITS/ML 3 ML PEN SC SCH ×2 (08:28→12:46)
[2017-08-21] MEDS ORDERED: PRD20 PO (12:55)
--- NOTE | 2017-08-21 12:57 | Discharge Instructions ---
Discharge Instructions Date of Service Aug 21, 2017. Admission Reason for Admission: Copd Exacerbation Discharge Discharge Diagnosis / Problem: COPD exacerbation with pneumothorax Discharge Goals Goal(s): Decrease discomfort, Improve function, Increase independence Activity Recommendations Activity Limitations: resume your previous activity . Instructions / Follow-Up Instructions / Follow-Up Dr Alanis as scheduled prior to your discharge Dr. Liang as per his office. They will call you for this appointment. If you do not hear from them by the end of the week, you should call them to set this up. You will have home oxygen set up. You should use this to sleep every night and when you take naps. You can also use this as needed if you feel short of breath. Current Hospital Diet Patient's current hospital diet: Diabetes Type 2 Diet, Low Sodium Diet (2gm Na) Discharge Diet Recommended Diet: Diabetes Type 2 Diet Pending Studies Studies pending at discharge: no Medical Emergencies . Who to Call and When: Medical Emergencies: If at any time you feel your situation is an emergency, please call 911 immediately. . Non-Emergent Contact Non-Emergency issues call your: Primary Care Provider, Specialist . . "Provider Documentation" section prepared by Marta Jama. .
--- NOTE | 2017-08-21 13:02 | Discharge Summary ---
Discharge Summary Date of Service Aug 21, 2017. Discharge Summary Admission Date: Aug 18, 2017 at 12:40 Discharge Date: Aug 21, 2017 Discharge Disposition: Home with services Principal Diagnosis: COPD exacerbation with pneumothorax Problems/Secondary Diagnoses: COPD Pneumothorax HTN DM CVA Gout Hypothyroid BPH Depression Immunizations: Have You Had Influenza Vaccine: Unknown History of Tetanus Vaccine?: Unknown History of Pneumococcal: Unknown Consultations: Dr. Liang (CT surg) Medication Reconciliation New Medications: Prednisone (Prednisone) 20 Mg Tab 2 TAB PO UD, #15 TAB Take 2 tabs BID x2 days, then 1 tab BID x2 days, then 1 tab QD x2 days, then 1/2 tab QD x2 days Continued Medications: Albuterol Sulf (Proventil 0.083% 2.5MG/3ML) 2.5 Mg/3 Ml Nebu 2.5 MG INH Q6 PRN for SOB/Wheezing, EA Albuterol Sulfate (Proair Respiclick) 108 Mcg/Act Aer 2 PUFFS INH Q6 PRN for SOB/Wheezing Allopurinol (Zyloprim) 300 Mg Tab 300 MG PO QAM, TAB Aspirin (Aspirin Chewable) 81 Mg Chew 81 MG PO QAM Atorvastatin (Lipitor) 40 Mg Tab 40 MG PO QPM, TAB Budesonide (Pulmicort Respules 0.5MG/2ML) 0.5 Mg/2 Ml Nebu 2 ML INH BID PRN for PRN, EA Calcium Polycarbophil (Fiber Tabs) 625 Mg Tab 1 TAB PO QAM Carvedilol (Coreg) 25 Mg Tab 0.5 TAB PO BID, TAB Cholecalciferol (Vitamin D3) 2,000 Unit Tab 1 TAB PO QPM, TAB Gabapentin (Gabapentin) 300 Mg Cap 1 CAP PO DAILY Insulin Aspart (Novolog Flexpen) 100 Units/Ml Inj 1 DOSE SC TID SLIDING SCALE AND CARB COUNTING Insulin Glargine (Toujeo Solostar) 300 Unit/Ml Inj 20 UNITS SC HS Lactulose (Chronulac) 10 Gm/15 Ml Syrp 2 TBS PO QAM Levothyroxine Sodium (Synthroid) 50 Mcg Tab 50 MCG PO QAM 0600 Nitroglycerin (Nitrostat) 0.4 Mg Tab 0.4 MG UT PRN for chest pain, BTL Pantoprazole (Protonix) 40 Mg Tab 40 MG PO HS, TAB Paroxetine Hcl (Paxil) 10 Mg Tab 10 MG PO QAM, TAB Tamsulosin Hcl (Flomax) 0.4 Mg Cap 0.4 MG PO QPM, CAP [Vitamin B12] () 1 DOSE INJ MONTHLY Discharge Exam Pt is feeling much improved. He feels his breathing is at his usual. He has some chest pain across his entire chest, but this is not new for him. He is a bit frustrated because he has had so many hospitalizations for his breathing. Pt states that he has issues with the incline and 15 steps into his home. He states that this SOB started out of the blue while he was cleaning his stove top with Dial soap. He states that his brother had home O2 and that he had instances where he started to have SOB and his nephew would bring him his brother's O2, which would resolve his SOB. He states that he had a treadmill test for his breathing about 2 years ago, however he only dropped to 90% and therefore did not qualify for home O2 at that time. Pt is otherwise feeling his usual. Tolerating PO without issue, although he did have some nausea last night that has not returned. Pt denies fever, abd pain, v/c/d, LE pain or swelling. Physical Exam: General Appearance: WD/WN, no apparent distress Eyes: normal inspection, sclerae normal Respiratory/Chest: normal breath sounds, no respiratory distress Cardiovascular: regular rate, rhythm, no edema Abdomen / GI: non tender, soft Extremities: no calf tenderness, no pedal edema Neurologic/Psychiatric: alert, oriented x 3 Skin: normal color, warm/dry Hospital Course Nolvia.[email or web address] 77/M admitted for COPD exacerbation currently requiring non-invasive ventilation. Labs were overall unremarkable with exception of mild hypokalemia. Otherwise, patient is stable. 1) COPD exacerbation, improving, oxygen saturation 96% at room air - Use BiPAP intermittent as needed, we will try to do a 2 step test to see supplement oxygen requirement at home. - Finish prednisone taper as outpt Finished course of azithromycin during admission Overnight pulse ox with desats to 87%, pt was denied home O2 by insurance despite this fact I do think pt would benefit from home O2 given his hx of using his brother's O2 when he has SOB and this resolves Pt states he had a treadmill pulmonary study roughly 2 years ago that was noted for desats to 90%, which did not qualify him for home O2 at that time. Pt would benefit from a repeat test at this time given his borderline O2 sats. 2) Diabetes Mellitus type II As prior 3) Hypertension -Continue medication 4) Hypothyroidism - stable; no active issues - resume levothyroxine 50 mcg PO qAM Pt is high risk for readmission given insurance denial for home O2. Total Time Spent: Greater than 30 minutes This includes examination of the patient, discharge planning, medication reconciliation, and communication with other providers. Discharge Instructions Please refer to the electronic Patient Visit Report (Discharge Instructions) for additional information. Follow-Up Dr Alanis as scheduled prior to your discharge Dr. Liang as per his office. They will call you for this appointment. If you do not hear from them by the end of the week, you should call them to set this up. Additional Copies To Domo Alanis D.O.; Bonifacio Liang MD
== END 2017-08-21 18:06 | disposition home or self-care (01) ==
LOC: C.EDB 10:52 → C.4E 12:40 → ENRESERV 13:02
PROVIDERS: ADMIT Internal Medicine; ATTEND Family Medicine
DX: J44.1 Chronic obstructive pulmonary disease with (acute) exacerbation (principal); J93.9 Pneumothorax, unspecified; E87.6 Hypokalemia; R06.02 Shortness of breath; I10 Essential (primary) hypertension; E11.9 Type 2 diabetes mellitus without complications; M10.9 Gout, unspecified; E03.9 Hypothyroidism, unspecified; N40.0 Benign prostatic hyperplasia without lower urinary tract symptoms; F32.9 Major depressive disorder, single episode, unspecified; Z79.82 Long term (current) use of aspirin; Z86.73 Personal history of transient ischemic attack (TIA), and cerebral infarction without residual deficits; Z90.2 Acquired absence of lung [part of]; Z85.118 Personal history of other malignant neoplasm of bronchus and lung; Z79.4 Long term (current) use of insulin; Z88.5 Allergy status to narcotic agent; Z91.041 Radiographic dye allergy status; Z82.49 Family history of ischemic heart disease and other diseases of the circulatory system

== ENCOUNTER 2017-08-31 17:37 | Emergency (ER) | payer OTHER, MEDICARE ==
[~2017-08-31] VITALS: Ht 174 cm; Wt 112.3 kg
[~2017-08-31 17:37] MED LIST changes: -AMOX875T PO; -CYNI1000 INJ; -SACC250C3 PO; -TRAM-10 PO
[2017-08-31 17:45] VITALS: TEMP 36.6; Ht 174 cm; Wt 112.3 kg
--- NOTE | 2017-08-31 18:15 | EMERGENCY ROOM VISIT NOTE ---
ED Visit Note First contact with patient: 17:53 HPI: 77 y/o gentleman with pmhx of COPD, recent d/c from COPD exacerbation admission here with left elbow pain after mechanical fall onto left arm. PE: AFVSS, NAD NC/AT RRR, no murmurs Scattered intermittent wheezes Abd soft NT/ND Ext: left elbow with mild deformity and ttp on medial and lateral aspect. ROM limited 2/2 pain. Distal PMS intact. Neuro: grossly intact Plan: Plain films demonstrate transcondylar fracture. CT of head, chest, abd/pel , CTL spine without acute findings. Incidental diverticulitis. Will treat with Augmentin. Resident d/w ortho, transcondylar fracture and will f/u promptly outpatient for surgical planning. Patient confident he can go home and do his ADLs. Ambulatory trial successful after splinting. Labs ordered for pre-op planning. Demonstrate thrombocytopenia of 61, which fluctuates for patient. Patient with f/u with his pcp for this. Likely will need repeat testing prior to surgery. Otherwise, patient and family at bedside confirm that the patient is at his recent respiratory baseline. I reviewed the patient's past medical history, medications, and visit nursing notes. I discussed the case with the resident physician, examined the patient, and agree with the findings and plan as documented in the residents note unless otherwise clarified here by me.
--- NOTE | 2017-08-31 18:50 | EMERGENCY ROOM VISIT NOTE ---
History First contact with patient: 17:53 Chief Complaint: FALL Stated Complaint: FALL-LEFT ARM PAIN History of Present Illness The patient is a 77 year old male with h/o COPD, cirrhosis, DM, HTN who presents to the Emergency Room with complaints of left elbow pain after a fall from standing. He was recently at the hospital for a pulse oximetry test and after arriving home he was bringing his groceries in. On his way outside he was stepping down one stair and misstepped. He then fell forward and hit his left elbow onto a post, landed on his knee and then his head. " I was out for a little bit" per the patient however he denies any chest pain, sudden dyspnea or diaphoresis, presyncope, dizziness or palpitations prior to the fall. He was not confused when he woke up and a neighbour had to help him from the ground. He was then brought in from home for evaluation. He states that he has pain in his left elbow and has been unable to move it. He prefers to keep his arm close to his side. He denies any headache, N&V, dizziness. He was asked to walk and he notes there is pain in his right knee with walking. Family members confirm this new limp with walking. He has had a history of right shoulder surgery and right knee arthroplasty. He has completed both his prednisone and Azithro course from his recent admission for COPD exacerbation. Discharge date was August 21, 2017. His dyspnea has remained unchanged since discharge and is at baseline. Review of Systems A 10 point review of symptoms completed and was negative aside from above Past Medical/Surgical History Medical Problems: (1) Acute dyspnea (2) Asthma (3) BPH (benign prostatic hyperplasia) (4) Bradycardia (5) Calcaneal spur (6) Carcinoma, lung (7) Carpal tunnel syndrome (8) Clostridium difficile diarrhea (9) COPD (chronic obstructive pulmonary disease) (10) COPD exacerbation (11) CVA (cerebral vascular accident) (12) Diabetes (13) Gout (14) Hepatic encephalopathy (15) Hypertension (16) Liver disease (17) Right lower lobe lung mass (18) Right ureteral calculus Surgical Problems: (1) S/P lobectomy of lung Family History Cancer FHx: hemochromatosis Heart disease Hypertension Social History Smoking Status: Never Smoker Smokeless Tobacco Use: No Alcohol Use: none Drug Use: none Marital Status: Housing Status: lives alone Occupation Status: retired Current/Historical Medications Scheduled Allopurinol (Zyloprim), 300 MG PO QAM Aspirin (Aspirin Chewable), 81 MG PO QAM Atorvastatin (Lipitor), 40 MG PO QPM Calcium Polycarbophil (Fiber Tabs), 1 TAB PO QAM Carvedilol (Coreg), 0.5 TAB PO BID Cholecalciferol (Vitamin D3), 1 TAB PO QPM Gabapentin (Gabapentin), 1 CAP PO DAILY Insulin Aspart (Novolog Flexpen), 1 DOSE SC TID Insulin Glargine (Toujeo Solostar), 20 UNITS SC HS Lactulose (Chronulac), 2 TBS PO QAM Levothyroxine Sodium (Synthroid), 50 MCG PO QAM Nitroglycerin (Nitrostat), 0.4 MG UT PRN Pantoprazole (Protonix), 40 MG PO HS Paroxetine Hcl (Paxil), 10 MG PO QAM Tamsulosin Hcl (Flomax), 0.4 MG PO QPM [Vitamin B12], 1 DOSE INJ MONTHLY Scheduled PRN Albuterol Sulf (Proventil 0.083% 2.5MG/3ML), 2.5 MG INH Q6 PRN for SOB/Wheezing Albuterol Sulfate (Proair Respiclick), 2 PUFFS INH Q6 PRN for SOB/Wheezing Budesonide (Pulmicort Respules 0.5MG/2ML), 2 ML INH BID PRN for PRN Physical Exam Vital Signs Date Time Temp Pulse Resp B/P (MAP) Pulse Ox O2 Delivery O2 Flow Rate FiO2 08/31/17 21:09 71 26 126/70 98 Room Air 08/31/17 19:30 61 20 105/67 95 Room Air 08/31/17 17:45 36.6 66 16 115/67 99 Room Air Physical Exam General: ambulatory with an antalgic gait, holding his left arm with walking, not in acute distress Skin: no rashes noted, no suspicious lesions, no areas of inflammations/ lacerations/ erythema noted CVS: S1/ S2 noted, RRR, no rubs/ murmurs noted, no cyanosis RVS: diminished breath sounds throughout however air movement noted, no expiratory wheezes appreciated, no breath sounds noted in the right( patient is s/p right LL lobectomy), no crackles appreciated, pursed lip breathing with exertion ENT: no erythema/ injection/ ulcerations noted in the pharynx, no lymphadenopathy Neck: inspection WNL, full ROM of neck, no cervical spinal tenderness ABD: BSx4, obese, nontender on palpation without rebound tenderness or peritoneal signs MSK: Inspection of the right UE is without abnormalities, left elbow has a visible deformity about the radial head, refusal for supination/ pronation/ flexion or extension of the left elbow or shoulder, abduction of right shoulder to 90 degrees as well as with flexion, limited extension of right shoulder, full supination and pronation of the right forearm compared to the left. The inspection of the back reveals no deformities or ecchymosis, tenderness on palpation of the mid thoracic/ lower spine. on inspection of the lower extremities no overt deformities, no erythema and no tenderness to palpation of bilat knee, ankles, no pain with abduction/ adduction of bilat hips NVS: CN ii-xii WNL, PERRL, EOMI, neurovascularly intact upper and lower extremities Lymph: No lymphadenopathy palpable Medical Decision & Procedures ER Provider Diagnostic Interpretation: THORACIC SPINE CT CT DOSE: HISTORY: Loss of consciousness after fall, spinal tenderness TECHNIQUE: Multiaxial CT images of the thoracic spine were performed and reformatted in the sagittal and coronal plane without the use of contrast. A dose lowering technique was utilized adhering to the principles of ALARA. COMPARISON: Thoracic spine CT 09/13/2016. FINDINGS: Mild to moderate anterior wedging within the T12 vertebral body is consistent with an old compression fracture. This is similar to the prior studies. No acute fracture or subluxation within the thoracic spine. Paraspinal soft tissues are unremarkable. Mild degenerative disc disease throughout the thoracic spine. Moderate right basilar hydropneumothorax. This is also unchanged. IMPRESSION: 1. No acute fracture or subluxation within the thoracic spine. 2. Old compression deformity at T12. 3. No change in the moderate right hydropneumothorax. CT OF THE CERVICAL SPINE WITHOUT CONTRAST CLINICAL HISTORY: LOC after fall, spinal tenderness COMPARISON STUDY: Cervical spine CT April 20, 2016 and cervical spine radiographs November 02, 2016. TECHNIQUE: Helical axial images of the cervical spine were obtained without IV contrast. Sagittal and coronal reconstructions were viewed. A dose lowering technique was utilized adhering to the principles of ALARA. FINDINGS: Alignment of the cervical spine is anatomic. Craniocervical junction is intact. No acute fracture is present. Degenerative changes at the C1-C2 articulation are noted. There is no prevertebral edema. There is moderate multilevel degenerative disc disease and facet arthrosis. IMPRESSION: No acute cervical spine fracture or subluxation. CT OF THE CHEST WITHOUT IV CONTRAST CLINICAL HISTORY: LOC after fall, spinal tenderness. 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 COMPARISON STUDY: Chest CT April 07, 2017 and PET/CT April 17, 2017. TECHNIQUE: Axial images of the chest were obtained without IV contrast. Images were reviewed in the axial, sagittal, and coronal planes. IV contrast was not administered for this examination. A dose lowering technique was utilized adhering to the principles of ALARA. FINDINGS: Note is made of a moderate sized right basilar hydropneumothorax which is similar to exam of August 18, 2017. This is not acute. There are postoperative findings within the right lower lobe. The heart is moderately enlarged. There is no pericardial effusion. There is right-sided gynecomastia. No left pneumothorax is present. There are multiple healing right-sided rib fractures as well as postsurgical findings from a right-sided thoracotomy. The thoracic spine CT will be reported separately. Visualized portions of the upper abdomen demonstrate cirrhosis. Evaluation of the thoracic aorta is suboptimal on this unenhanced exam but there is no mediastinal hematoma. There is no thoracic lymphadenopathy. There is a punctate left renal calyx. There is trace perihepatic fluid. IMPRESSION: 1. No acute findings identified within the chest on unenhanced exam. 2. Postoperative findings within the right hemithorax status post right lower lobe resection. Persistent moderate right hydropneumothorax which is similar to exam of August 18, 2017. 3. Several healing right-sided rib fractures and postsurgical changes from right-sided thoracotomy. HEAD CT NONCONTRAST CT DOSE: HISTORY: Loss of consciousness after fall, spinal tenderness TECHNIQUE: Multiaxial CT images of the head were performed without the use of intravenous contrast. Automated exposure control was utilized for this study. A dose lowering technique was utilized adhering to the principles of ALARA. Comparison: Head CT 11/02/2016. Findings: The paranasal sinuses and mastoid air cells are clear. The calvarium and skull base are intact. There is no mass, hematoma, midline shift, acute infarct. White matter hypodensity is nonspecific but suggestive of microvascular ischemic change. The ventricles and sulci demonstrate mild age-related involutional changes. Impression: No acute intracranial abnormality. Atrophy and microvascular ischemic changes. LUMBAR SPINE WITHOUT CLINICAL HISTORY: LOC after fall, spinal tenderness COMPARISON STUDY: Lumbar spine CT September 13, 2016. FINDINGS: Moderate T12 compression fracture is noted. No acute lumbar spine fracture is identified. Sacroiliac joints are intact. There is moderate multilevel degenerative disc disease and facet arthrosis. Paraspinal soft tissues are unremarkable by CT. IMPRESSION: 1. No acute lumbar spine fracture or subluxation. 2. Old moderate T12 compression fracture. PELVIS CT CT DOSE: 4107.63 mGy.cm HISTORY: new limp after fall TECHNIQUE: Multiaxial CT images of the pelvis were performed and reformatted in the sagittal and coronal plane without the use of contrast. A dose lowering technique was utilized adhering to the principles of ALARA. COMPARISON: Abdomen and pelvis CT 04/03/2017. FINDINGS: No fracture dislocation within the pelvis or hips. The sacrum appears intact. Mild thickening within the single direct a column at the proximal sigmoid colon best seen on image 395 with surrounding inflammatory change. This is consistent with mild acute diverticulitis. No perforation or abscess. IMPRESSION: 1. No fracture or dislocation within the pelvis or hips. 2. Mild acute sigmoid diverticulitis. [~ rep ct add3]] L SHOULDER MIN 2 VIEWS ROUTINE CLINICAL HISTORY: Left shoulder pain. COMPARISON: None FINDINGS: Severe degenerative changes of the left acromioclavicular joint are noted with osteophytosis. No acute fracture or dislocation of the left shoulder is identified. The appearance is unchanged. IMPRESSION: 1. No acute fracture or dislocation of the left shoulder. 2. Severe AC joint arthrosis. Moderate glenohumeral joint arthrosis. L HUMERUS MIN 2 VIEWS ROUTINE, L ELBOW MIN 3 VIEWS ROUTINE CLINICAL HISTORY: left elbow injury COMPARISON STUDY: None. FINDINGS: There is a displaced oblique transcondylar fracture of the distal humerus. This is slightly comminuted. This demonstrates up to 1.7 cm of anterior displacement and 2 cm of medial displacement.. No dislocation of the elbow. There is an associated elbow effusion. No acute fractures within the proximal to mid humerus. IMPRESSION: A displaced transcondylar fracture of the distal humerus as described above. [~ rep ct add3]] L HUMERUS MIN 2 VIEWS ROUTINE, L ELBOW MIN 3 VIEWS ROUTINE CLINICAL HISTORY: left elbow injury COMPARISON STUDY: None. FINDINGS: There is a displaced oblique transcondylar fracture of the distal humerus. This is slightly comminuted. This demonstrates up to 1.7 cm of anterior displacement and 2 cm of medial displacement.. No dislocation of the elbow. There is an associated elbow effusion. No acute fractures within the proximal to mid humerus. IMPRESSION: A displaced transcondylar fracture of the distal humerus as described above. R KNEE 1 OR 2 VIEWS ROUTINE, L KNEE 1 OR 2 VIEWS ROUTINE CLINICAL HISTORY: fall to knees. Bilateral knee pain. COMPARISON STUDY: None. FINDINGS: There is a right total knee arthroplasty. The hardware is intact. No fracture or dislocation within the right or left knee. Moderate osteoarthritis within the medial compartment of the left knee. Left knee chondrocalcinosis. No significant knee effusion. IMPRESSION: 1. No fracture or dislocation within the right or left knee. 2. Chronic and postoperative changes as described above. Laboratory Results Test 08/31/17 20:53 Medications Administered Medications (Trade) Dose Ordered Sig/Ronna Route Start Time Stop Time Status Last Admin Dose Admin Acetaminophen (Tylenol Tab) 650 mg NOW STAT PO 08/31/17 20:53 08/31/17 20:54 DC 08/31/17 20:59 650 MG ECG Per My Interpretation Indication: syncope Rate (beats per minute): 67 Rhythm: normal sinus Findings: no acute ischemic change, no ectopy Change: no significant change (from Aug 18 2017) Medical Decision Differential diagnosis includes but is not limited to arrhythmia, mechanical fall, infectious process, orthostasis resulting in fall and LOC Patient was evaluated the history with the patient was discussed. The patient has findings concerning for fracture not only in the left elbow but with thoracic spine tenderness and an episode of LOC after the fall a more through work up was ordered. The CT of the head did not reveal any acute hemorrhage. The Ct of the spine revealed an old thoracic compression fracture however no acute findings. The CT of the chest did reveal an acute process and reflected post thoracotomy changes. The CT of the pelvis in fact revealed a mild diverticulitis however the patient had denied any change in bowel habits or abdominal pain. He does note a remote history of chronic diverticulitis and has chronic LLQ pain on repeat questioning. Once again he states that there has been no change in bowel habits. He follows with [facility] for this particular issue. The patient had no symptoms prior to a mechanical fall and LOC was after the patient had fallen. EKG was unremarkable and BSG was WNL. As the LOC was after the patient had fallen it is unlikely the patient had an organic cause of syncope leading to his fall. Xray revealed a displaced transcondylar fracture of the left elbow. Dr Castro was contacted for suggestions for further management. The recommendations was for outpatient follow up along with a posterior splint to mid palm and a follow up CT elbow. Will also order preop labs to complete work up. Concern for ambulatory dysfunction and unsafe home environment so a test with a cane and walker was completed. Patient did very well with ambulation and outpatient follow up was made for Dr Castro. With regards to his mild diverticulitis, the patient is non toxic so will empirically treat with Augmentin. Will also add Florastor as there is a history of C diff and recent use of Azithro. Will arrange follow up with his GI. Medication Reconcilliation Current Medication List: was personally reviewed by al Blood Pressure Screening Patient's blood pressure: Normal blood pressure Consults Time Called: 2020 Consulting Physician: Dr Castro Returned Call: [phone] Castro, xrays reviewed and instructions for management discussed Impression Primary Impression: Displaced transcondylar fracture of left humerus Additional Impression: Diverticulitis Departure Information Dispostion Home / Self-Care Condition GOOD Referrals Domo Alanis D.O. (PCP) Patient Instructions My [facility] Problem Qualifiers
--- NOTE | 2017-08-31 19:14 | DIAGNOSTIC IMAGING REPORT ---
HEAD CT NONCONTRAST CT DOSE: HISTORY: Loss of consciousness after fall, spinal tenderness TECHNIQUE: Multiaxial CT images of the head were performed without the use of intravenous contrast. Automated exposure control was utilized for this study. A dose lowering technique was utilized adhering to the principles of ALARA. Comparison: Head CT 11/02/2016. Findings: The paranasal sinuses and mastoid air cells are clear. The calvarium and skull base are intact. There is no mass, hematoma, midline shift, acute infarct. White matter hypodensity is nonspecific but suggestive of microvascular ischemic change. The ventricles and sulci demonstrate mild age-related involutional changes. Impression: No acute intracranial abnormality. Atrophy and microvascular ischemic changes. Electronically signed by: Baldemar Temple M.D. 08/31/2017 7:12 PM Dictated Date/Time: 08/31/2017 7:07 PM
--- NOTE | 2017-08-31 19:15 | DIAGNOSTIC IMAGING REPORT ---
CT OF THE CERVICAL SPINE WITHOUT CONTRAST CLINICAL HISTORY: LOC after fall, spinal tenderness COMPARISON STUDY: Cervical spine CT April 20, 2016 and cervical spine radiographs November 02, 2016. TECHNIQUE: Helical axial images of the cervical spine were obtained without IV contrast. Sagittal and coronal reconstructions were viewed. A dose lowering technique was utilized adhering to the principles of ALARA. FINDINGS: Alignment of the cervical spine is anatomic. Craniocervical junction is intact. No acute fracture is present. Degenerative changes at the C1-C2 articulation are noted. There is no prevertebral edema. There is moderate multilevel degenerative disc disease and facet arthrosis. IMPRESSION: No acute cervical spine fracture or subluxation. Electronically signed by: Bryn Kathleen M.D. 08/31/2017 7:14 PM Dictated Date/Time: 08/31/2017 7:09 PM
--- NOTE | 2017-08-31 19:27 | DIAGNOSTIC IMAGING REPORT ---
CT OF THE CHEST WITHOUT IV CONTRAST CLINICAL HISTORY: LOC after fall, spinal tenderness. 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 COMPARISON STUDY: Chest CT April 07, 2017 and PET/CT April 17, 2017. TECHNIQUE: Axial images of the chest were obtained without IV contrast. Images were reviewed in the axial, sagittal, and coronal planes. IV contrast was not administered for this examination. A dose lowering technique was utilized adhering to the principles of ALARA. FINDINGS: Note is made of a moderate sized right basilar hydropneumothorax which is similar to exam of August 18, 2017. This is not acute. There are postoperative findings within the right lower lobe. The heart is moderately enlarged. There is no pericardial effusion. There is right-sided gynecomastia. No left pneumothorax is present. There are multiple healing right-sided rib fractures as well as postsurgical findings from a right-sided thoracotomy. The thoracic spine CT will be reported separately. Visualized portions of the upper abdomen demonstrate cirrhosis. Evaluation of the thoracic aorta is suboptimal on this unenhanced exam but there is no mediastinal hematoma. There is no thoracic lymphadenopathy. There is a punctate left renal calyx. There is trace perihepatic fluid. IMPRESSION: 1. No acute findings identified within the chest on unenhanced exam. 2. Postoperative findings within the right hemithorax status post right lower lobe resection. Persistent moderate right hydropneumothorax which is similar to exam of August 18, 2017. 3. Several healing right-sided rib fractures and postsurgical changes from right-sided thoracotomy. Electronically signed by: Bryn Kathleen M.D. 08/31/2017 7:25 PM Dictated Date/Time: 08/31/2017 7:14 PM
--- NOTE | 2017-08-31 19:27 | DIAGNOSTIC IMAGING REPORT ---
THORACIC SPINE CT CT DOSE: HISTORY: Loss of consciousness after fall, spinal tenderness TECHNIQUE: Multiaxial CT images of the thoracic spine were performed and reformatted in the sagittal and coronal plane without the use of contrast. A dose lowering technique was utilized adhering to the principles of ALARA. COMPARISON: Thoracic spine CT 09/13/2016. FINDINGS: Mild to moderate anterior wedging within the T12 vertebral body is consistent with an old compression fracture. This is similar to the prior studies. No acute fracture or subluxation within the thoracic spine. Paraspinal soft tissues are unremarkable. Mild degenerative disc disease throughout the thoracic spine. Moderate right basilar hydropneumothorax. This is also unchanged. IMPRESSION: 1. No acute fracture or subluxation within the thoracic spine. 2. Old compression deformity at T12. 3. No change in the moderate right hydropneumothorax. Electronically signed by: Baldemar Temple M.D. 08/31/2017 7:25 PM Dictated Date/Time: 08/31/2017 7:18 PM
--- NOTE | 2017-08-31 19:31 | DIAGNOSTIC IMAGING REPORT ---
LUMBAR SPINE WITHOUT CLINICAL HISTORY: LOC after fall, spinal tenderness COMPARISON STUDY: Lumbar spine CT September 13, 2016. FINDINGS: Moderate T12 compression fracture is noted. No acute lumbar spine fracture is identified. Sacroiliac joints are intact. There is moderate multilevel degenerative disc disease and facet arthrosis. Paraspinal soft tissues are unremarkable by CT. IMPRESSION: 1. No acute lumbar spine fracture or subluxation. 2. Old moderate T12 compression fracture. Electronically signed by: Bryn Kathleen M.D. 08/31/2017 7:30 PM Dictated Date/Time: 08/31/2017 7:25 PM
--- NOTE | 2017-08-31 19:37 | DIAGNOSTIC IMAGING REPORT ---
PELVIS CT CT DOSE: 4107.63 mGy.cm HISTORY: new limp after fall TECHNIQUE: Multiaxial CT images of the pelvis were performed and reformatted in the sagittal and coronal plane without the use of contrast. A dose lowering technique was utilized adhering to the principles of ALARA. COMPARISON: Abdomen and pelvis CT 04/03/2017. FINDINGS: No fracture dislocation within the pelvis or hips. The sacrum appears intact. Mild thickening within the single direct a column at the proximal sigmoid colon best seen on image 395 with surrounding inflammatory change. This is consistent with mild acute diverticulitis. No perforation or abscess. IMPRESSION: 1. No fracture or dislocation within the pelvis or hips. 2. Mild acute sigmoid diverticulitis. Electronically signed by: Baldemar Temple M.D. 08/31/2017 7:33 PM Dictated Date/Time: 08/31/2017 7:26 PM
--- NOTE | 2017-08-31 19:43 | DIAGNOSTIC IMAGING REPORT ---
L SHOULDER MIN 2 VIEWS ROUTINE CLINICAL HISTORY: Left shoulder pain. COMPARISON: None FINDINGS: Severe degenerative changes of the left acromioclavicular joint are noted with osteophytosis. No acute fracture or dislocation of the left shoulder is identified. The appearance is unchanged. IMPRESSION: 1. No acute fracture or dislocation of the left shoulder. 2. Severe AC joint arthrosis. Moderate glenohumeral joint arthrosis. Electronically signed by: Bryn Kathleen M.D. 08/31/2017 7:41 PM Dictated Date/Time: 08/31/2017 7:40 PM
--- NOTE | 2017-08-31 20:04 | DIAGNOSTIC IMAGING REPORT ---
L HUMERUS MIN 2 VIEWS ROUTINE, L ELBOW MIN 3 VIEWS ROUTINE CLINICAL HISTORY: left elbow injury COMPARISON STUDY: None. FINDINGS: There is a displaced oblique transcondylar fracture of the distal humerus. This is slightly comminuted. This demonstrates up to 1.7 cm of anterior displacement and 2 cm of medial displacement.. No dislocation of the elbow. There is an associated elbow effusion. No acute fractures within the proximal to mid humerus. IMPRESSION: A displaced transcondylar fracture of the distal humerus as described above. Electronically signed by: Baldemar Temple M.D. 08/31/2017 8:03 PM Dictated Date/Time: 08/31/2017 8:00 PM
[2017-08-31] MEDS ORDERED: ACETAMINOPHEN 325 MG TAB PO STA (20:53)
--- NOTE | 2017-08-31 21:05 | DIAGNOSTIC IMAGING REPORT ---
R KNEE 1 OR 2 VIEWS ROUTINE, L KNEE 1 OR 2 VIEWS ROUTINE CLINICAL HISTORY: fall to knees. Bilateral knee pain. COMPARISON STUDY: None. FINDINGS: There is a right total knee arthroplasty. The hardware is intact. No fracture or dislocation within the right or left knee. Moderate osteoarthritis within the medial compartment of the left knee. Left knee chondrocalcinosis. No significant knee effusion. IMPRESSION: 1. No fracture or dislocation within the right or left knee. 2. Chronic and postoperative changes as described above. Electronically signed by: Baldemar Temple M.D. 08/31/2017 9:04 PM Dictated Date/Time: 08/31/2017 9:02 PM
--- NOTE | 2017-08-31 21:48 | DIAGNOSTIC IMAGING REPORT ---
LEFT ELBOW CT CT DOSE: 964.87 mGy.cm HISTORY: Left elbow fracture. left transcondylar fracture TECHNIQUE: Multiaxial CT images of the left elbow were performed and reformatted in the sagittal and coronal plane without the use of contrast. A dose lowering technique was utilized adhering to the principles of ALARA. COMPARISON: Left elbow 08/31/2017. FINDINGS: There is redemonstration of the transcondylar fracture of the distal humerus. This demonstrates up to 1.2 cm of medial displacement. There is also a 9 mm of posterior displacement. No dislocation at the elbow. The visualized radius and all appear intact. There is an associated elbow effusion. Mild posterior soft tissue edema. IMPRESSION: Displaced transcondylar fracture of the distal humerus as described above. Electronically signed by: Baldemar Temple M.D. 08/31/2017 9:47 PM Dictated Date/Time: 08/31/2017 9:44 PM
[2017-08-31] MEDS ORDERED: AMOX875T PO (21:56)
[2017-08-31] MEDS ORDERED: SACC250C3 PO (21:56)
[2017-08-31 22:23] LABS: HEMATOCRIT 35.1 % (42-52); HEMOGLOBIN 11.8 g/dL (14.0-18.0); MEAN CELL VOLUME 83.2 fL (80-100); MEAN CORPUSCULAR HGB CONC 33.6 g/dl (32-36); RED CELL DISTRIBUTION WIDTH CV 20.3 % (11.5-14.5); RED CELL DISTRIBUTION WIDTH SD 61.5 fL (36.4-46.3); WHITE BLOOD COUNT 8.98 K/uL (4.8-10.8)
[2017-08-31 22:33] LABS: PTT PATIENT 26.4 SECONDS (21.0-31.0)
[2017-08-31 22:40] LABS: CREATININE 1.53 mg/dl (0.60-1.40)
[2017-08-31 22:46] LABS: BASO % 0.1 %; BASO ABS # 0.01 K/uL (0-0.2); EOS % 1.2 %; EOS ABS # 0.11 K/uL (0-0.5); IG# 0.07 K/uL (0.00-0.02); LYMPH % 14.6 %; LYMPH ABS # 1.31 K/uL (1.2-3.4); MEAN PLATELET VOLUME 10.1 fL (7.4-10.4); MONO % 5.6 %; NEUT % 77.7 %; NEUT ABS # 6.98 K/uL (1.4-6.5); PLATELET COUNT 61 K/uL (130-400)
[2017-08-31 23:54] VITALS: BP 115/67; PULSE 65; O2SAT 98
== END 2017-08-31 23:56 | disposition home or self-care (01) ==
LOC: C.EDB 17:38 → C.EDC 23:56
DX: S42.472A Displaced transcondylar fracture of left humerus, initial encounter for closed fracture (principal); S06.9X9A Unspecified intracranial injury with loss of consciousness of unspecified duration, initial encounter; W19.XXXA Unspecified fall, initial encounter; K57.92 Diverticulitis of intestine, part unspecified, without perforation or abscess without bleeding; M25.561 Pain in right knee; J44.9 Chronic obstructive pulmonary disease, unspecified; E11.9 Type 2 diabetes mellitus without complications; I10 Essential (primary) hypertension; Z98.890 Other specified postprocedural states; Z79.4 Long term (current) use of insulin; Z79.82 Long term (current) use of aspirin; Z79.899 Other long term (current) drug therapy; Z87.81 Personal history of (healed) traumatic fracture; Z82.49 Family history of ischemic heart disease and other diseases of the circulatory system; Z83.2 Family history of diseases of the blood and blood-forming organs and certain disorders involving the immune mechanism

== ENCOUNTER → 2017-08-31 | Outpatient (CLI) | payer OTHER, MEDICARE ==
[~2017-08-31] MED LIST changes: +AMOX875T PO; +CYNI1000 INJ; +GABA-1219 PO; -NRN100 PO; +PRD20 PO; +SACC250C3 PO; +TRAM-10 PO
== END | disposition home or self-care (01) ==
LOC: C.RC 13:04
PROVIDERS: ATTEND Physician Assistant Medical
DX: R06.02 Shortness of breath (principal)

== ENCOUNTER 2017-09-04 06:25 | Emergency (ER) | payer OTHER, MEDICARE ==
[~2017-09-04] VITALS: Ht 174 cm; Wt 111.5 kg
[~2017-09-04 06:25] MED LIST changes: +AMOX875T PO; -PRD20 PO; +SACC250C3 PO
[2017-09-04 06:34] VITALS: TEMP 36.7; Ht 174 cm; Wt 111.5 kg
[2017-09-04] MEDS ORDERED: CYNI1000 INJ (06:38)
--- NOTE | 2017-09-04 07:30 | EMERGENCY ROOM VISIT NOTE ---
History Report prepared by Mary: Salima Rosado Under the Supervision of: Dr. Shani Winters M.D. First contact with patient: 06:38 Chief Complaint: ABDOMINAL PAIN Stated Complaint: SEVERE STOMACH PAIN, DIARRHEA History of Present Illness The patient is a 77 year old male who presents to the Emergency Room with complaints of worsening upper abdominal pain for the past 3 days. He rates his pain as an 8/10 in severity. He has been experiencing nausea, increased belching , and watery diarrhea for the past couple of days as well. The patient broke his left arm 4 days ago and has been taking Aleve for his pain. The patient has a history of diverticulitis and is currently taking antibiotics. He denies any vomiting, cp or SOB. He denies fever. Pt states he is unsure if there was any BRBPR. Source of History: patient Onset: 3 days ago Position: abdomen Symptom Intensity: 8/10 Timing: worsening Associated Symptoms: + nausea, + diarrhea, No vomiting Review of Systems See HPI for pertinent positives & negatives. A total of 10 systems reviewed and were otherwise negative. Past Medical & Surgical Medical Problems: (1) Acute dyspnea (2) Asthma (3) BPH (benign prostatic hyperplasia) (4) Bradycardia (5) Calcaneal spur (6) Carcinoma, lung (7) Carpal tunnel syndrome (8) Clostridium difficile diarrhea (9) COPD (chronic obstructive pulmonary disease) (10) COPD exacerbation (11) CVA (cerebral vascular accident) (12) Diabetes (13) Gout (14) Hepatic encephalopathy (15) Hypertension (16) Liver disease (17) Right lower lobe lung mass (18) Right ureteral calculus Surgical Problems: (1) S/P lobectomy of lung Family History Cancer FHx: hemochromatosis Heart disease Hypertension Social History Smoking Status: Never Smoker Alcohol Use: none Drug Use: none Marital Status: Housing Status: lives alone Occupation Status: retired Current/Historical Medications Scheduled Allopurinol (Zyloprim), 300 MG PO QAM Amoxicillin & Pot Clavulanate (Augmentin 875-125 mg), 1 TAB PO BID Aspirin (Aspirin Chewable), 81 MG PO QAM Atorvastatin (Lipitor), 40 MG PO QPM Calcium Polycarbophil (Fiber Tabs), 1 TAB PO QAM Carvedilol (Coreg), 0.5 TAB PO BID Cholecalciferol (Vitamin D3), 1 TAB PO QPM Cyanocobalamin (Cyanocobalamin), 1 ML INJ MONTHLY Gabapentin (Gabapentin), 1 CAP PO DAILY Insulin Aspart (Novolog Flexpen), 1 DOSE SC TID Insulin Glargine (Toujeo Solostar), 20 UNITS SC HS Lactulose (Chronulac), 2 TBS PO QAM Levothyroxine Sodium (Synthroid), 50 MCG PO QAM Nitroglycerin (Nitrostat), 0.4 MG UT UD Pantoprazole (Protonix), 40 MG PO HS Paroxetine Hcl (Paxil), 10 MG PO QAM Saccharomyces Boulardii (Florastor), 1 CAP PO BID Tamsulosin Hcl (Flomax), 0.4 MG PO QPM Scheduled PRN Albuterol Sulf (Proventil 0.083% 2.5MG/3ML), 2.5 MG INH Q6 PRN for SOB/Wheezing Albuterol Sulfate (Proair Respiclick), 2 PUFFS INH Q6 PRN for SOB/Wheezing Budesonide (Pulmicort Respules 0.5MG/2ML), 2 ML INH BID PRN for PRN Tramadol (Ultram), 1 TABS PO Q6 PRN for Pain Allergies Coded Allergies: Meperidine (Verified Allergy, Severe, ANAPHYLAXIS, 08/31/17) Iodinated Diagnostic Agents (Verified Allergy, Intermediate, HIVES, ) Oxycodone (Verified Allergy, Intermediate, SHORTNESS OF BREATH, 08/31/17) wheezing ??? Dobutamine (Verified Allergy, Unknown, abd pain, 08/31/17) Perflutren (Verified Allergy, Unknown, abd pain, 08/31/17) Physical Exam Vital Signs Date Time Temp Pulse Resp B/P (MAP) Pulse Ox O2 Delivery O2 Flow Rate FiO2 09/04/17 13:16 78 20 136/93 96 09/04/17 12:00 89 18 142/90 96 Room Air 09/04/17 11:30 91 20 153/88 96 Room Air 09/04/17 11:16 86 09/04/17 10:43 84 16 110/82 97 Room Air 09/04/17 10:10 88 18 131/88 95 09/04/17 09:57 96 18 125/83 97 Room Air 09/04/17 09:34 88 21 95/63 98 Room Air 09/04/17 08:00 98 20 130/75 97 Room Air 09/04/17 07:19 Room Air 09/04/17 07:00 91 22 136/93 96 Room Air 09/04/17 06:55 101 09/04/17 06:34 36.7 92 22 146/87 97 Room Air Physical Exam Vital signs reviewed. General: Well-appearing elderly male, in no significant distress. HEENT: No scleral icterus, PERRLA, neck supple. Atraumatic. Cardiovascular: Regular rate and rhythm with occasional ectopy. Pulmonary: Clear to auscultation bilaterally, normal work of breathing. Abdomen: Soft, mildly distended obese abdomen, positive tympany to upper abdomen , tender to epigastric region, mild LUQ tenderness, positive bowel sounds. Musculoskeletal: Atraumatic, no peripheral edema. Neurologic: Patient awake alert and oriented x 3 Skin: Warm, dry, no rash Medical Decision & Procedures ER Provider Diagnostic Interpretation: Radiology results as stated below per my review and radiologist interpretation: ABDOMEN 2VIEW W/PA CHEST RTN CLINICAL HISTORY: abd pain, retching COMPARISON STUDY: Chest x-ray dated 08/18/2017 FINDINGS: There is a fluid level at the base the right hemithorax. This suggests a fluid-filled cavity or loculated hydropneumothorax. Postthoracotomy changes are visualized on the right. No free air is visualized. There is scattered surgical clips within the abdomen. There is mild gastric distention. The stomach is filled with fluid and debris. There are no findings to indicate a small bowel obstruction. No free air is visualized. There are chronic right-sided rib deformities. IMPRESSION: 1. No evidence of free intraperitoneal air 2. Mild gastric distention 3. No evidence of small bowel obstruction 4. Fluid level at the base the right hemithorax. This suggests a fluid-filled cavity or loculated hydropneumothorax. Electronically signed by: Shad Parr M.D. 09/04/2017 8:47 AM Dictated Date/Time: 09/04/2017 8:43 AM ABDOMEN AND PELVIS CT WITH ORAL CONTRAST CT DOSE: 1772.81 mGy.cm HISTORY: epigastric pain, retching TECHNIQUE: Multiaxial CT images of the abdomen and pelvis were performed following the use of oral contrast. A dose lowering technique was utilized adhering to the principles of ALARA. COMPARISON STUDY: Chest CT 08/31/2017. Pelvis CT 08/31/2017. FINDINGS: Moderate right basilar hydropneumothorax is not significantly changed. Healing right lower anterolateral rib fractures and a partially resected right anterior lower rib are again noted. No pneumoperitoneum. No pneumatosis. Right-sided gynecomastia. Nodular contour to the liver consistent with cirrhosis. Cholecystectomy. The spleen is enlarged measuring 16 cm in length. The unenhanced adrenal glands and pancreas are unremarkable. Mild thickening and adjacent fat stranding at a single diverticulum at the proximal sigmoid colon. This is best in image 379 and likely represents sigmoid diverticulitis. This is similar to the prior study. No perforation or abscess. Prior anastomotic suture material at the sigmoid colon. The bladder is unremarkable. Asymmetric thickening of the right lower rectus abdominis muscle. This raises the possibility of a small rectus sheath hematoma. Normal appendix. No bowel obstruction. There is a left circumaortic renal vein. No hydronephrosis. Mild bilateral perinephric edema. Punctate stone within the left kidney. There is also a punctate stone within the right kidney. Mild aneurysmal dilatation of the abdominal aorta measuring up to 3.2 cm. Inferior mesenteric vein dilatation. IMPRESSION: 1. No change in the moderate right basilar hydropneumothorax. Right lower anterior healing rib fractures are again noted. 2. Cirrhosis with splenomegaly. 3. Mild acute sigmoid diverticulitis. This is also unchanged. 4. Suspect a small right lower rectus sheath hematoma. 5. Bilateral nephrolithiasis. No hydronephrosis. 6. A 3.2 cm abdominal aortic aneurysm. Electronically signed by: Baldemar Temple M.D. 09/04/2017 11:13 AM Dictated Date/Time: 09/04/2017 10:43 AM Laboratory Results 09/04/17 07:13 Red Blood Count 4.43, Mean Corpuscular Volume 82.6, Mean Corpuscular Hemoglobin 27.5, Mean Corpuscular Hemoglobin Concent 33.3, Neutrophils (%) (Auto) 80.6, Lymphocytes (%) (Auto) 7.4, Monocytes (%) (Auto) 8.7, Eosinophils (%) (Auto) 2.9 , Basophils (%) (Auto) 0.2, Neutrophils # (Auto) 3.60, Lymphocytes # (Auto) 0.33 , Monocytes # (Auto) 0.39, Eosinophils # (Auto) 0.13, Basophils # (Auto) 0.01 09/04/17 07:13 Test 09/04/17 07:13 09/04/17 07:55 09/04/17 07:57 White Blood Count 4.47 K/uL (4.8-10.8) Red Blood Count 4.43 M/uL (4.7-6.1) Hemoglobin 12.2 g/dL (14.0-18.0) Hematocrit 36.6 % (42-52) Mean Corpuscular Volume 82.6 fL (80-100) Mean Corpuscular Hemoglobin 27.5 pg (25-34) Mean Corpuscular Hemoglobin Concent 33.3 g/dl (32-36) Platelet Count 61 K/uL (130-400) Neutrophils (%) (Auto) 80.6 % Lymphocytes (%) (Auto) 7.4 % Monocytes (%) (Auto) 8.7 % Eosinophils (%) (Auto) 2.9 % Basophils (%) (Auto) 0.2 % Neutrophils # (Auto) 3.60 K/uL (1.4-6.5) Lymphocytes # (Auto) 0.33 K/uL (1.2-3.4) Monocytes # (Auto) 0.39 K/uL (0.11-0.59) Eosinophils # (Auto) 0.13 K/uL (0-0.5) Basophils # (Auto) 0.01 K/uL (0-0.2) RDW Standard Deviation 62.0 fL (36.4-46.3) RDW Coefficient of Variation 20.5 % (11.5-14.5) Immature Granulocyte % (Auto) 0.2 % Immature Granulocyte # (Auto) 0.01 K/uL (0.00-0.02) Platelet Estimate DECREASED Anisocytosis PRESENT Echinocytes 1+ Anion Gap 6.0 mmol/L (3-11) Est Creatinine Clear Calc Drug Dose 69.1 ml/min Estimated GFR () 74.4 Estimated GFR (Non- 64.2 BUN/Creatinine Ratio 20.0 (10-20) Calcium Level 9.4 mg/dl (8.5-10.1) Total Bilirubin 0.9 mg/dl (0.2-1) Direct Bilirubin 0.3 mg/dl (0-0.2) Aspartate Amino Transf (AST/SGOT) 17 U/L (15-37) Alanine Aminotransferase (ALT/SGPT) 23 U/L (12-78) Alkaline Phosphatase 58 U/L (45-117) Total Protein 6.4 gm/dl (6.4-8.2) Albumin 2.9 gm/dl (3.4-5.0) Lipase 109 U/L (73-393) Bedside Troponin I < 0.030 ng/ml (0-0.045) Urine Color YELLOW Urine Appearance CLEAR (CLEAR) Urine pH 5.0 (4.5-7.5) Urine Specific [place] 1.022 (1.000-1.030) Urine Protein NEG (NEG) Urine Glucose (UA) NEG (NEG) Urine Ketones NEG (NEG) Urine Occult Blood NEG (NEG) Urine Nitrite NEG (NEG) Urine Bilirubin NEG (NEG) Urine Urobilinogen NEG (NEG) Urine Leukocyte Esterase NEG (NEG) Laboratory results per my review. Medications Administered Medications (Trade) Dose Ordered Sig/Ronna Route Start Time Stop Time Status Last Admin Dose Admin Sodium Chloride 1,000 ml @ 125 mls/hr Q8H STAT IV 09/04/17 07:39 09/04/17 13:50 DC 09/04/17 07:39 125 MLS/HR Sodium Chloride 500 ml @ 999 mls/hr Q31M STAT IV 09/04/17 07:39 09/04/17 08:09 DC 09/04/17 07:39 999 MLS/HR Ondansetron HCl (Zofran Inj) 4 mg NOW STAT IV 09/04/17 07:39 09/04/17 07:43 DC 09/04/17 08:17 4 MG Hydromorphone HCl (Dilaudid Inj) 0.5 mg NOW STAT IV 09/04/17 09:12 09/04/17 09:13 DC 09/04/17 09:59 0.5 MG ECG Per My Interpretation Indication: abdominal pain Rate (beats per minute): 93 Rhythm: sinus with SA Findings: no acute ischemic change, left axis deviation, no ectopy ED Course 0710: Past medical records reviewed. The patient was evaluated in room B4B. A complete history and physical examination was performed. 0739: Zofran 4 mg IV, NSS 500 ml @ 999 mls/hr IV, NSS 1000 ml @ 125 mls/hr IV 0912: Dilaudid 0.5 mg IV 1212: I reassessed the patient at this time. He is feeling better and resting comfortably. I discussed the results and treatment plan with the patient. I answered all pertaining questions that he had. He expressed understanding and verbalized agreement. The patient will be discharged home. Medical Decision Differential diagnosis: Etiologies such as appendicitis, diverticulitis, PUD, biliary pathology, UTI, pancreatitis, obstruction, mesenteric ischemia, aortic pathology, infections, inflammatory bowel disease, renal colic, as well as others were entertained. This pt was evaluated and appeared to be in no distress. IVF were initiated, pt tx with IV zofran and dilaudid. Pt had recent fall 4 days ago. Incidental mild acute diverticulitis was found. Pt was tx with Augmentin and now has intractable watery, heme + diarrhea. CT abd pelvis today reveals unchanged area of inflammation of sigmoid, a small rectus sheath hematoma ( likely from fall). Stool is c diff negative, cultures are pending. Lab work is fairly unrevealing. Pt was asked to stop Augmentin. He stated he has not taken the lactulose in several days. Pt will stop aleve he is using for L arm pain r/t recent fx and start ultram as needed. He has a h/o cirrhosis, so no tylenol will be initiated unless necessary. Pt will f/u with orthopaedics for his Fx f/u and his PCP r/t diarrhea this week for reevaluation. He will return to the ED for worsening of symptoms or any medical concerns. Medication Reconcilliation Current Medication List: was personally reviewed by me Blood Pressure Screening Patient's blood pressure: Normal blood pressure Impression Primary Impression: Diarrhea Additional Impression: Heme + stool Scribe Attestation The scribe's documentation has been prepared under my direction and personally reviewed by me in its entirety. I confirm that the note above accurately reflects all work, treatment, procedures, and medical decision making performed by me. Departure Information Dispostion Home / Self-Care Prescriptions Tramadol (Ultram) 50 Mg Tab 1 TABS PO Q6 Y for Pain, #20 TAB Prov: Shani Winters M.D. 09/04/17 Referrals Domo Alanis D.O. (PCP) Forms Call Back Authorization, HOME CARE DOCUMENTATION FORM, IMPORTANT VISIT INFORMATION Patient Instructions My [facility] Additional Instructions Diagnosis: Diarrhea, medication reaction STOP AUGMENTIN AND ALEVE. Ultram 50 mg every 6 hours as needed for pain. Drink plenty of clear fluids. Continue Protonix 40 mg daily as prescribed. Continue probiotics as prescribed. Follow-up with your primary care physician this week for reevaluation if symptoms persist. Return to the ER for worsening of symptoms or new medical concerns. Problem Qualifiers
[2017-09-04] MEDS ORDERED: SODIUM CHLORIDE 0.9% 500ML 500 ML IV STA (07:39)
[2017-09-04] MEDS ORDERED: ONDANSETRON INJ 2 MG/ML 2 ML VIAL IV STA (07:39)
[2017-09-04] MEDS ORDERED: SODIUM CHLORIDE 0.9% 1000ML 1,000 ML IV STA (07:39)
[2017-09-04 07:47] LABS: MEAN CORPUSCULAR HGB CONC 33.3 g/dl (32-36)
[2017-09-04 07:54] LABS: ALBUMIN 2.9 gm/dl (3.4-5.0); CALCIUM 9.4 mg/dl (8.5-10.1); CREATININE 1.11 mg/dl (0.60-1.40); POTASSIUM 4.7 mmol/L (3.5-5.1)
[2017-09-04 07:58] LABS: TOTAL PROTEIN 6.4 gm/dl (6.4-8.2)
[2017-09-04 08:02] LABS: HEMATOCRIT 36.6 % (42-52); HEMOGLOBIN 12.2 g/dL (14.0-18.0); MEAN CELL VOLUME 82.6 fL (80-100); MEAN CORPUSCULAR HEMOGLOBIN 27.5 pg (25-34); RED CELL DISTRIBUTION WIDTH CV 20.5 % (11.5-14.5); WHITE BLOOD COUNT 4.47 K/uL (4.8-10.8)
[2017-09-04 08:16] LABS: BASO % 0.2 %; BASO ABS # 0.01 K/uL (0-0.2); EOS % 2.9 %; EOS ABS # 0.13 K/uL (0-0.5); IG# 0.01 K/uL (0.00-0.02); LYMPH % 7.4 %; LYMPH ABS # 0.33 K/uL (1.2-3.4); MONO % 8.7 %; MONO ABS # 0.39 K/uL (0.11-0.59); NEUT % 80.6 %; PLATELET COUNT 61 K/uL (130-400)
--- NOTE | 2017-09-04 08:48 | DIAGNOSTIC IMAGING REPORT ---
ABDOMEN 2VIEW W/PA CHEST RTN CLINICAL HISTORY: abd pain, retching COMPARISON STUDY: Chest x-ray dated 08/18/2017 FINDINGS: There is a fluid level at the base the right hemithorax. This suggests a fluid-filled cavity or loculated hydropneumothorax. Postthoracotomy changes are visualized on the right. No free air is visualized. There is scattered surgical clips within the abdomen. There is mild gastric distention. The stomach is filled with fluid and debris. There are no findings to indicate a small bowel obstruction. No free air is visualized. There are chronic right-sided rib deformities. IMPRESSION: 1. No evidence of free intraperitoneal air 2. Mild gastric distention 3. No evidence of small bowel obstruction 4. Fluid level at the base the right hemithorax. This suggests a fluid-filled cavity or loculated hydropneumothorax. Electronically signed by: Shad Parr M.D. 09/04/2017 8:47 AM Dictated Date/Time: 09/04/2017 8:43 AM
[2017-09-04] MEDS ORDERED: HYDROmorphone INJ 0.5 MG/0.5 ML SYR IV STA (09:12)
--- NOTE | 2017-09-04 11:14 | DIAGNOSTIC IMAGING REPORT ---
ABDOMEN AND PELVIS CT WITH ORAL CONTRAST CT DOSE: 1772.81 mGy.cm HISTORY: epigastric pain, retching TECHNIQUE: Multiaxial CT images of the abdomen and pelvis were performed following the use of oral contrast. A dose lowering technique was utilized adhering to the principles of ALARA. COMPARISON STUDY: Chest CT 08/31/2017. Pelvis CT 08/31/2017. FINDINGS: Moderate right basilar hydropneumothorax is not significantly changed. Healing right lower anterolateral rib fractures and a partially resected right anterior lower rib are again noted. No pneumoperitoneum. No pneumatosis. Right-sided gynecomastia. Nodular contour to the liver consistent with cirrhosis. Cholecystectomy. The spleen is enlarged measuring 16 cm in length. The unenhanced adrenal glands and pancreas are unremarkable. Mild thickening and adjacent fat stranding at a single diverticulum at the proximal sigmoid colon. This is best in image 379 and likely represents sigmoid diverticulitis. This is similar to the prior study. No perforation or abscess. Prior anastomotic suture material at the sigmoid colon. The bladder is unremarkable. Asymmetric thickening of the right lower rectus abdominis muscle. This raises the possibility of a small rectus sheath hematoma. Normal appendix. No bowel obstruction. There is a left circumaortic renal vein. No hydronephrosis. Mild bilateral perinephric edema. Punctate stone within the left kidney. There is also a punctate stone within the right kidney. Mild aneurysmal dilatation of the abdominal aorta measuring up to 3.2 cm. Inferior mesenteric vein dilatation. IMPRESSION: 1. No change in the moderate right basilar hydropneumothorax. Right lower anterior healing rib fractures are again noted. 2. Cirrhosis with splenomegaly. 3. Mild acute sigmoid diverticulitis. This is also unchanged. 4. Suspect a small right lower rectus sheath hematoma. 5. Bilateral nephrolithiasis. No hydronephrosis. 6. A 3.2 cm abdominal aortic aneurysm. Electronically signed by: Baldemar Temple M.D. 09/04/2017 11:13 AM Dictated Date/Time: 09/04/2017 10:43 AM
[2017-09-04] MEDS ORDERED: TRAM-10 PO ×2 (12:48→13:34)
[2017-09-04 13:16] VITALS: BP 136/93; PULSE 78; O2SAT 96
--- NOTE | 2017-09-04 13:37 | Pharmacy Progress Note ---
ED Pharmacist Progress Note Date of Service: Sep 04, 2017. 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 I called [facility] and provided a verbal order to cancel the Tramadol. Dr. Winters aware and will re-transmit the Rx to [facility] at the patient's/family's request.
== END 2017-09-04 13:18 | disposition home or self-care (01) ==
LOC: C.EDB 06:26
DX: R19.7 Diarrhea, unspecified (principal); R19.5 Other fecal abnormalities; R10.13 Epigastric pain; I71.4 Abdominal aortic aneurysm, without rupture; N20.0 Calculus of kidney; K57.32 Diverticulitis of large intestine without perforation or abscess without bleeding; K74.60 Unspecified cirrhosis of liver; E11.9 Type 2 diabetes mellitus without complications; Z79.899 Other long term (current) drug therapy; Z79.82 Long term (current) use of aspirin; Z88.8 Allergy status to other drugs, medicaments and biological substances

== ENCOUNTER 2018-01-01 09:42 | Inpatient (IN) | payer OTHER, MEDICARE ==
[2018-01-01] VITALS (14 sets, daily range): BP systolic 130–159; BP diastolic 83–96; PULSE 70–95; TEMP 36–36.7; O2SAT 95–99; Ht 172.7 cm; Wt 115.0 kg
[~2018-01-01] VITALS: Ht 172.7 cm; Wt 115.0 kg
[~2018-01-01 09:42] MED LIST changes: -ALL300; -CZR50; -FINA5TAB PO; -FORM1NEB NEB; -GLUC-221; -INSU1.2I SL; -INSU100I; -MAGN400T6 PO; -NRV5 PO; -PLV75 PO; -PRAV20TA PO
[2018-01-01] MEDS ORDERED: ALBUTEROL 0.083% NEBU SOLN 3 ML VIAL INH STA (10:23)
[2018-01-01] MEDS ORDERED: METHYLPREDNISOLONE 125 MG VIAL IV STA (10:25)
[2018-01-01] MEDS ORDERED: ALL300 (10:29)
[2018-01-01] MEDS ORDERED: FINA5TAB PO (10:29)
[2018-01-01] MEDS ORDERED: MAGN400T6 PO (10:29)
[2018-01-01] MEDS ORDERED: FORM1NEB NEB (10:29)
[2018-01-01] MEDS ORDERED: INSU1.2I SL (10:29)
[2018-01-01] MEDS ORDERED: GLUC-221 (10:29)
[2018-01-01] MEDS ORDERED: PRAV20TA PO (10:29)
[2018-01-01] MEDS ORDERED: CZR50 (10:29)
[2018-01-01] MEDS ORDERED: INSU100I (10:29)
[2018-01-01] MEDS ORDERED: LEVAQUIN 750MG / 150ML D5W IV ONE (10:30)
[2018-01-01 11:10] LABS: HEMATOCRIT 33.5 % (42-52); HEMOGLOBIN 11.7 g/dL (14.0-18.0); MEAN CORPUSCULAR HEMOGLOBIN 30.4 pg (25-34); MEAN CORPUSCULAR HGB CONC 34.9 g/dl (32-36); MEAN PLATELET VOLUME 9.7 fL (7.4-10.4); PLATELET COUNT 91 K/uL (130-400); RED CELL DISTRIBUTION WIDTH CV 15.4 % (11.5-14.5); RED CELL DISTRIBUTION WIDTH SD 49.2 fL (36.4-46.3); WHITE BLOOD COUNT 6.14 K/uL (4.8-10.8)
[2018-01-01 11:11] LABS: INR 1.1 (0.9-1.1)
[2018-01-01 11:22] LABS: ALBUMIN 2.8 gm/dl (3.4-5.0); ALKALINE PHOSPHATASE 73 U/L (45-117); ALT/SGPT 18 U/L (12-78); AST/SGOT 18 U/L (15-37); BLOOD UREA NITROGEN 29 mg/dl (7-18); CALCIUM 8.9 mg/dl (8.5-10.1); CARBON DIOXIDE 25 mmol/L (21-32); CREATININE 1.12 mg/dl (0.60-1.40); GLUCOSE 132 mg/dl (70-99); POTASSIUM 3.8 mmol/L (3.5-5.1); SODIUM 141 mmol/L (136-145); TOTAL PROTEIN 6.1 gm/dl (6.4-8.2)
[2018-01-01 11:28] LABS: BASO % 0.3 %; BASO ABS # 0.02 K/uL (0-0.2); EOS % 2.4 %; EOS ABS # 0.15 K/uL (0-0.5); IG# 0.02 K/uL (0.00-0.02); LYMPH % 20.8 %; LYMPH ABS # 1.28 K/uL (1.2-3.4); MONO % 8.1 %; NEUT % 68.1 %; NEUT ABS # 4.17 K/uL (1.4-6.5)
--- NOTE | 2018-01-01 12:40 | DIAGNOSTIC IMAGING REPORT ---
ABDOMEN 2 VIEWS CLINICAL HISTORY: Epigastric abdominal pain. Retching. FINDINGS: Supine and erect abdominal radiographs are compared to study dated 09/04/2017 and correlated with abdominal CT dated 09/04/2017. There is a nonobstructed abdominal bowel gas pattern. No evidence of intraperitoneal free air is seen. Cholecystectomy clips are identified in the right upper quadrant. Suture material and surgical clips are seen in the left lower quadrant. There are no abnormal abdominal calcifications. The skeletal structures are osteopenic. Lumbosacral spondylosis is observed. Cardiomegaly is noted. There is a small right pleural effusion with right basilar atelectasis. IMPRESSION: 1. Nonobstructed abdominal bowel gas pattern. 2. Cardiomegaly and right pleural effusion. Electronically signed by: Derrek Silva M.D. 01/01/2018 12:39 PM Dictated Date/Time: 01/01/2018 12:37 PM
[2018-01-01] MEDS ORDERED: MAGNESIUM HYDROXIDE SUSP 30 ML UDC PO PRN (12:45)
[2018-01-01] MEDS ORDERED: ALUMINUM/MAGNESIUM/SIMETH (MAALOX MAX) 30 ML UDC PO PRN (12:45)
[2018-01-01] MEDS ORDERED: ACETAMINOPHEN 325 MG TAB PO PRN (12:45)
[2018-01-01] MEDS ORDERED: ONDANSETRON INJ 2 MG/ML 2 ML VIAL IV PRN (12:45)
[2018-01-01] MEDS ORDERED: MoRPHine SULFATE 2 MG/ML CARP IV PRN (12:45)
--- NOTE | 2018-01-01 12:51 | History and Physical ---
History & Physical Date & Time of Service: Jan 01, 2018 at 12:43 Chief Complaint: Shortness Of Breath Primary Care Physician: Domo Alanis D.O. History of Present Illness Source: patient, hospital records, other 77 y/o M Hx COPD, lung CA - post RLL lobectomy, HTN, HPL, CVA, DM II, hypothyroidism, gout, ETOH cirrhosis, recurrent C diff. The pt presents from his MDs office where he became acutely SOB and diaphoretic. He was directed to the ER therefore. He states he has had a productive cough and upper quadrant abdominal discomfort since the prior evening. He has a times coughed forcefully leading him to retch and also to vomit once. He denies any CP, diarrhea or constipation. He has not had any fevers. 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 8) History of CVA 9) Splenomegaly 10) Thrombocytopenia 11) BPH 12) Obese Family History Cancer FHx: hemochromatosis Heart disease Hypertension Hemochromatosis, CAD Social History Distant history of smoking and ETOH abuse Smoking Status: Former Smoker Drug Use: none Marital Status: Housing status: lives alone Occupational Status: retired Immunizations History of Influenza Vaccine: Unknown History of Tetanus Vaccine?: Unknown History of Pneumococcal: Unknown Allergies Coded Allergies: Meperidine (Verified Allergy, Severe, ANAPHYLAXIS, 01/01/18) Iodinated Diagnostic Agents (Verified Allergy, Intermediate, HIVES, ) Oxycodone (Verified Allergy, Intermediate, SHORTNESS OF BREATH, 01/01/18) wheezing ??? Dobutamine (Verified Allergy, Unknown, abd pain, 01/01/18) Perflutren (Verified Allergy, Unknown, abd pain, 01/01/18) Home Medications Scheduled Allopurinol (Zyloprim), 300 MG PO QAM Aspirin (Aspirin Chewable), 81 MG PO QAM Calcium Polycarbophil (Fiber Tabs), 1 TAB PO QAM Carvedilol (Coreg), 0.5 TAB PO BID Cholecalciferol (Vitamin D3), 1 TAB PO QPM Cyanocobalamin (Cyanocobalamin), 1 ML INJ MONTHLY Finasteride (Proscar), 5 MG PO DAILY Formoterol Fumarate (Perforomist), 1 VIAL NEB Q12 Gabapentin (Gabapentin), 1 CAP PO DAILY Glucostix Blood Test Strips (OnePoppinuch Ultra Blue), 1 BID Insulin Glargine (Toujeo Solostar), 20 UNITS SC HS Insulin Glargine (Toujeo Solostar), 45 UNITS SL HS Lactulose (Chronulac), 2 TBS PO QAM Levothyroxine Sodium (Synthroid), 50 MCG PO QAM Magnesium Oxide (Mag-Ox), 400 MG PO DAILY Nitroglycerin (Nitrostat), 0.4 MG UT UD Pantoprazole (Protonix), 40 MG PO HS Paroxetine Hcl (Paxil), 10 MG PO QAM Tamsulosin Hcl (Flomax), 0.4 MG PO QPM Miscellaneous Medications Insulin Lispro (Human) (Humalog) Losartan Potassium (Losartan Potassium) Pravastatin (Pravachol ), 10 MG PO Review of Systems Constitutional: + sweats, No fever, No chills Eyes: No worsening of vision, No eye pain ENT: No hearing loss Respiratory: + cough, + sputum, + wheezing, + shortness of breath, + dyspnea on exertion, + dyspnea at rest Cardiovascular: No chest pain, No orthopnea, No PND Abdomen: + pain (upper quadrant) Musculoskeletal: No joint pain Genitourinary - Male: No hematuria Neurologic: No memory loss, No paralysis, No weakness Psychiatric: No depression symptoms Endocrine: No fatigue Hematologic / Lymphatic: No abnormal bleeding/bruising Integumentary: No rash Allergic / Immunologic: No environmental allergies Physical Exam Vital Signs Date Time Temp Pulse Resp B/P (MAP) Pulse Ox O2 Delivery O2 Flow Rate FiO2 01/01/18 11:23 79 18 141/93 100 Nebulizer 01/01/18 10:43 70 18 95 01/01/18 10:28 97 Room Air 01/01/18 09:56 98 Room Air 01/01/18 09:56 97 Room Air 01/01/18 09:56 37.2 75 24 140/98 100 Room Air 01/01/18 09:53 89 General Appearance: WD/WN, + pertinent finding (Obese, elderly male - labored breathing and clearly audible wheezing - no 02 requirements) Head: normocephalic Eyes: normal inspection ENT: normal ENT inspection, pharynx normal Neck: supple, thyroid normal Respiratory/Chest: chest non-tender, + decreased breath sounds, + wheezing (BL) , + pertinent finding (Very poor BL air movement) Cardiovascular: regular rate, rhythm, no edema, no gallop, no JVD, normal peripheral pulses Abdomen/GI: normal bowel sounds, + pertinent finding (Mild upper quadrant tenderness) Back: normal inspection, no CVA tenderness Extremities/Musculoskelatal: normal inspection, no calf tenderness, normal capillary refill Neurologic/Psych: host/hostess ground II-XII nml as tested, no motor/sensory deficits, alert, normal reflexes Skin: normal color Diagnostics Laboratory Results Results Past 24 Hours Test 01/01/18 10:36 01/01/18 11:20 Range/Units White Blood Count 6.14 4.8-10.8 K/uL Red Blood Count 3.85 4.7-6.1 M/uL Hemoglobin 11.7 14.0-18.0 g/dL Hematocrit 33.5 42-52 % Mean Corpuscular Volume 87.0 80-100 fL Mean Corpuscular Hemoglobin 30.4 25-34 pg Mean Corpuscular Hemoglobin Concent 34.9 32-36 g/dl Platelet Count 91 130-400 K/uL Mean Platelet Volume 9.7 7.4-10.4 fL Neutrophils (%) (Auto) 68.1 % Lymphocytes (%) (Auto) 20.8 % Monocytes (%) (Auto) 8.1 % Eosinophils (%) (Auto) 2.4 % Basophils (%) (Auto) 0.3 % Neutrophils # (Auto) 4.17 1.4-6.5 K/uL Lymphocytes # (Auto) 1.28 1.2-3.4 K/uL Monocytes # (Auto) 0.50 0.11-0.59 K/uL Eosinophils # (Auto) 0.15 0-0.5 K/uL Basophils # (Auto) 0.02 0-0.2 K/uL RDW Standard Deviation 49.2 36.4-46.3 fL RDW Coefficient of Variation 15.4 11.5-14.5 % Immature Granulocyte % (Auto) 0.3 % Immature Granulocyte # (Auto) 0.02 0.00-0.02 K/uL Ovalocytes 1+ Prothrombin Time 11.2 9.0-12.0 SECONDS Prothromb Time International Ratio 1.1 0.9-1.1 Activated Partial Thromboplast Time 30.0 21.0-31.0 SECONDS Partial Thromboplastin Ratio 1.2 Sodium Level 141 136-145 mmol/L Potassium Level 3.8 3.5-5.1 mmol/L Chloride Level 110 98-107 mmol/L Carbon Dioxide Level 25 21-32 mmol/L Anion Gap 6.0 3-11 mmol/L Blood Urea Nitrogen 29 7-18 mg/dl Creatinine 1.12 0.60-1.40 mg/dl Est Creatinine Clear Calc Drug Dose 69.5 ml/min Estimated GFR () 73.6 Estimated GFR (Non- 63.5 BUN/Creatinine Ratio 25.9 10-20 Random Glucose 132 70-99 mg/dl Calcium Level 8.9 8.5-10.1 mg/dl Total Bilirubin 0.8 0.2-1 mg/dl Aspartate Amino Transf (AST/SGOT) 18 15-37 U/L Alanine Aminotransferase (ALT/SGPT) 18 12-78 U/L Alkaline Phosphatase 73 45-117 U/L Troponin I < 0.015 0-0.045 ng/ml Pro-B-Type Natriuretic Peptide 189 0-1800 pg/ml Total Protein 6.1 6.4-8.2 gm/dl Albumin 2.8 3.4-5.0 gm/dl Globulin 3.3 2.5-4.0 gm/dl Albumin/Globulin Ratio 0.8 0.9-2 Chemistry Specimen Hemolysis Urine Color YELLOW Urine Appearance CLEAR CLEAR Urine pH 5.5 4.5-7.5 Urine Specific Stella 1.021 1.000-1.030 Urine Protein NEG NEG Urine Glucose (UA) NEG NEG Urine Ketones NEG NEG Urine Occult Blood NEG NEG Urine Nitrite NEG NEG Urine Bilirubin NEG NEG Urine Urobilinogen NEG NEG Urine Leukocyte Esterase NEG NEG Diagnostic Radiology XR abdomen: 1. Nonobstructed abdominal bowel gas pattern. 2. Cardiomegaly and right pleural effusion. EKG NSR - no change in morphology from previous Impression Assessment and Plan 77 y/o M Hx COPD, lung CA - post RLL lobectomy, HTN, HPL, CVA, DM II, hypothyroidism, gout, ETOH cirrhosis, recurrent C diff. The pt presents from his MDs office where he became acutely SOB and diaphoretic. He was directed to the ER therefore. He states he has had a productive cough and upper quadrant abdominal discomfort since the prior evening. He has a times coughed forcefully leading him to retch and also to vomit once. He denies any CP, diarrhea or constipation. He has not had any fevers. 1) Cough, SOB/wheezing, COPD - The pt will be treated for COPD exacerbation. Owing to a productive cough, he received Levaquin in the ER. We would choose to avoid antibiotics if possible due to a history of recurrent, severe C diff. He will be sent for a CT chest as his CXR did not demonstrate any infiltrates. A sputum culture was requested. There are pleural effusions on the CXR which would be better quantified with a CT. He is not requiring supplemental 02 at the time of admission. 2) Abdominal pain - unclear etiology - may be related to strain form coughing or referred pain from a pulmonary process. We will consider additional imaging if this does not resolve or worsens. 3) DM II - placed on SS 4) History of CVA, HTN, HPL - we will continue ASA, Coreg, Pravastatin 5) Hypothyroidism - cont Synthroid 6) Gout - cont Allopurinol 7) Cirrhosis - cont daily lactulose Full code - Heparin prophylaxis Total time for this admit including review of labs, meds, imaging, records - discussion with pt and ER attending - 38 min Additional f/u reg effusions pending CT chest Resuscitation Status VTE Prophylaxis Will order VTE Prophylaxis: Yes
[2018-01-01] MEDS ORDERED: ALBUTEROL 0.083% NEBU SOLN 3 ML VIAL INH PRN (13:00)
--- NOTE | 2018-01-01 14:07 | DIAGNOSTIC IMAGING REPORT ---
(CHEST) THORAX WITHOUT CLINICAL HISTORY: 77 years-old Male presenting with occult pneumonia, lung cancer. TECHNIQUE: Multidetector CT imaging of the chest was performed without the use of intravenous contrast. IV contrast: None. A dose lowering technique was used consistent with the principles of ALARA (as low as reasonably achievable). COMPARISON: 11/02/2017. CT DOSE (mGy.cm): The estimated cumulative dose is 611.19 mGycm. FINDINGS: Radio Disc Jockey topogram: Unremarkable. On soft tissue windows, thyroid and thoracic inlet normal. Severe right and mild left gynecomastia. Few prominent subcentimeter mediastinal lymph nodes in the right paratracheal and subcarinal regions. These are similar prior. Evaluation of the paulina limited without intravenous contrast. Atherosclerosis of the aorta. Multichamber enlargement of the heart. Coronary artery, aortic valve, and mitral annular calcification. Persistent small to moderate right pleural effusion, which is likely loculated. Persistent significant right pleural thickening. Cirrhotic morphology of the liver. On lung windows, postsurgical changes of right lower lobectomy. Architectural distortion of the remaining right lobes. Mild smooth interlobular septal thickening in the right lung likely indicating mild congestive change, which may be postsurgical. Stable subpleural nodule in the left apex (series 4 image 70). Airways patent. No pneumothorax. On bone windows, degenerative changes of the spine. Sclerotic focus in the lateral right eighth rib likely from prior right rib fractures. Degenerative changes of the glenohumeral joints. IMPRESSION: 1. No focal infiltrate to suggest pneumonia. 2. Postsurgical changes of right lower lobectomy. No new pulmonary nodule. 3. Persistent small to moderate right pleural effusion with chronic right pleural thickening. This may indicate chronic inflammation and less air is a history of known chronic malignant effusion. 4. Suspected reactive mediastinal lymph nodes, unchanged. 5. Cirrhosis. Electronically signed by: Chon West M.D. 01/01/2018 2:05 PM Dictated Date/Time: 01/01/2018 1:59 PM
[2018-01-01] MEDS ORDERED: GLUCOSE 40% GEL 15 GM TUBE PO PRN (14:45)
[2018-01-01] MEDS ORDERED: DEXTROSE 50% 50 ML SYR IV PRN (14:45)
[2018-01-01] MEDS ORDERED: GLUCOSE 10 TABS/TUBE PO PRN (14:45)
[2018-01-01] MEDS ORDERED: CARBOHYDRATES FOR HYPOGLYCEMIA PO PRN (14:45)
[2018-01-01] MEDS ORDERED: GLUCAGON FOR INJ 1 MG VIAL IM PRN (14:45)
[2018-01-01] MEDS ORDERED: NSS + 20MEQ KCL 1000ML 1,000 ML IV SCH (15:00)
[2018-01-01] MEDS: ALBUT/IPRATROP 3MG/0.5MG NEB 3 ML VIAL INH SCH ×2 (15:14→19:07)
--- NOTE | 2018-01-01 16:07 | EMERGENCY ROOM VISIT NOTE ---
History Report prepared by Mary: Kashif Villanueva Under the Supervision of: Ervin SandhuO. First contact with patient: 10:17 Chief Complaint: SHORTNESS OF BREATH Stated Complaint: SHORTNESS OF BREATH Nursing Triage Summary: pt arrives from [facility] via EMS. pt w/ hx of right lobecotomy and lung ca. pt at [facility] for cxr. pt c/o increasing sob for past 3 days. pt lungs sounds wheezing on assessment. pt became diaphortic and sob at md office. told to come to ER. pt also c/o n/v. History of Present Illness The patient is a 77 year old male who presents to the Emergency Room with complaints of worsening shortness of breath beginning 2 or 3 days ago. The patient reports that he is also experiencing a productive cough of yellow fluid that started yesterday. He notes a pain across his chest that started a couple of days ago, stating that he usually experiences it at night. The patient reports a history of COPD and states that he is on Coumadin. The patient denies swelling of the calves, history of blood clots, or headaches. He states that part of his lung was removed due to cancer, and reports that he is not on chemotherapeutic drugs. He notes that he still has his appendix but no longer has his gallbladder. He states that he recently has been on steroids, but not currently. Source of History: patient Onset: 2 or 3 days ago Position: other (lungs) Quality: other (shortness of breath) Timing: worsening Associated Symptoms: + chest pain, No headache Note: productive cough of yellow fluid denies swelling of the calves Review of Systems See HPI for pertinent positives & negatives. A total of 10 systems reviewed and were otherwise negative. Past Medical & Surgical Medical Problems: (1) Acute dyspnea (2) Asthma (3) BPH (benign prostatic hyperplasia) (4) Bradycardia (5) Calcaneal spur (6) Carcinoma, lung (7) Carpal tunnel syndrome (8) Clostridium difficile diarrhea (9) COPD (chronic obstructive pulmonary disease) (10) COPD exacerbation (11) CVA (cerebral vascular accident) (12) Diabetes (13) Gout (14) Hepatic encephalopathy (15) Hypertension (16) Liver disease (17) Right lower lobe lung mass (18) Right ureteral calculus (19) Shortness of breath Surgical Problems: (1) S/P lobectomy of lung Family History Cancer FHx: hemochromatosis Heart disease Hypertension Social History Smoking Status: Former Smoker Alcohol Use: none Drug Use: none Marital Status: Housing Status: lives alone Occupation Status: retired Current/Historical Medications Scheduled Allopurinol (Zyloprim), 300 MG PO QAM Aspirin (Aspirin Chewable), 81 MG PO QAM Calcium Polycarbophil (Fiber Tabs), 1 TAB PO QAM Carvedilol (Coreg), 0.5 TAB PO BID Cholecalciferol (Vitamin D3), 1 TAB PO QPM Cyanocobalamin (Cyanocobalamin), 1 ML INJ MONTHLY Finasteride (Proscar), 5 MG PO DAILY Formoterol Fumarate (Perforomist), 1 VIAL NEB Q12 Gabapentin (Gabapentin), 1 CAP PO DAILY Glucostix Blood Test Strips (Magink display technologies Ultra Blue), 1 BID Insulin Glargine (Toujeo Solostar), 20 UNITS SC HS Insulin Glargine (Toujeo Solostar), 45 UNITS SL HS Lactulose (Chronulac), 2 TBS PO QAM Levothyroxine Sodium (Synthroid), 50 MCG PO QAM Magnesium Oxide (Mag-Ox), 400 MG PO DAILY Nitroglycerin (Nitrostat), 0.4 MG UT UD Pantoprazole (Protonix), 40 MG PO HS Paroxetine Hcl (Paxil), 10 MG PO QAM Tamsulosin Hcl (Flomax), 0.4 MG PO QPM Miscellaneous Medications Insulin Lispro (Human) (Humalog) Losartan Potassium (Losartan Potassium) Pravastatin (Pravachol ), 10 MG PO Allergies Coded Allergies: Meperidine (Verified Allergy, Severe, ANAPHYLAXIS, 01/01/18) Iodinated Diagnostic Agents (Verified Allergy, Intermediate, HIVES, ) Oxycodone (Verified Allergy, Intermediate, SHORTNESS OF BREATH, 01/01/18) wheezing ??? Dobutamine (Verified Adverse Reaction, Unknown, abd pain, 01/01/18) Perflutren (Verified Adverse Reaction, Unknown, abd pain, 01/01/18) Physical Exam Vital Signs Date Time Temp Pulse Resp B/P (MAP) Pulse Ox O2 Delivery O2 Flow Rate FiO2 01/01/18 13:16 98 Room Air 01/01/18 12:39 77 24 141/93 98 Room Air 01/01/18 11:23 79 18 141/93 100 Nebulizer 01/01/18 10:43 70 18 95 01/01/18 10:28 97 Room Air 01/01/18 09:56 98 Room Air 01/01/18 09:56 97 Room Air 01/01/18 09:56 37.2 75 24 140/98 100 Room Air 01/01/18 09:53 89 Physical Exam GENERAL: Sitting up in bed, dyspneic with speaking. Moderate distress with persistent productive cough. EYE EXAM: normal conjunctiva. OROPHARYNX: no exudate, no erythema, lips, buccal mucosa, and tongue normal and mucous membranes are dry NECK: supple, no nuchal rigidity, no adenopathy, non-tender LUNGS: Diffuse expiratory wheezing with minimal air movement. HEART: no murmurs, S1 normal and S2 normal ABDOMEN: abdomen soft, tender to palpation of epigastric region, normo-active bowel sounds, no masses, no rebound or guarding. BACK: Back is symmetrical on inspection and there is no deformity, no midline tenderness, no CVA tenderness. SKIN: no rashes and no bruising UPPER EXTREMITIES: upper extremities are grossly normal. LOWER EXTREMITIES: No pitting edema. Calves equal bilaterally. NEURO EXAM: Normal sensorium, cranial nerves II-XII grossly intact, normal speech, no gross weakness of arms, no gross weakness of legs. Medical Decision & Procedures ER Provider Diagnostic Interpretation: Radiology results as stated below per my review and the radiologist's interpretation: (CHEST) THORAX WITHOUT CLINICAL HISTORY: 77 years-old Male presenting with occult pneumonia, lung cancer. TECHNIQUE: Multidetector CT imaging of the chest was performed without the use of intravenous contrast. IV contrast: None. A dose lowering technique was used consistent with the principles of ALARA (as low as reasonably achievable). COMPARISON: 11/02/2017. CT DOSE (mGy.cm): The estimated cumulative dose is 611.19 mGycm. 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 On soft tissue windows, thyroid and thoracic inlet normal. Severe right and mild left gynecomastia. Few prominent subcentimeter mediastinal lymph nodes in the right paratracheal and subcarinal regions. These are similar prior. Evaluation of the paulina limited without intravenous contrast. Atherosclerosis of the aorta. Multichamber enlargement of the heart. Coronary artery, aortic valve, and mitral annular calcification. Persistent small to moderate right pleural effusion, which is likely loculated. Persistent significant right pleural thickening. Cirrhotic morphology of the liver. On lung windows, postsurgical changes of right lower lobectomy. Architectural distortion of the remaining right lobes. Mild smooth interlobular septal thickening in the right lung likely indicating mild congestive change, which may be postsurgical. Stable subpleural nodule in the left apex (series 4 image 70). Airways patent. No pneumothorax. On bone windows, degenerative changes of the spine. Sclerotic focus in the lateral right eighth rib likely from prior right rib fractures. Degenerative changes of the glenohumeral joints. IMPRESSION: 1. No focal infiltrate to suggest pneumonia. 2. Postsurgical changes of right lower lobectomy. No new pulmonary nodule. 3. Persistent small to moderate right pleural effusion with chronic right pleural thickening. This may indicate chronic inflammation and less air is a history of known chronic malignant effusion. 4. Suspected reactive mediastinal lymph nodes, unchanged. 5. Cirrhosis. Electronically signed by: Chon West M.D. 01/01/2018 2:05 PM Dictated Date/Time: 01/01/2018 1:59 PM ABDOMEN 2 VIEWS CLINICAL HISTORY: Epigastric abdominal pain. Retching. FINDINGS: Supine and erect abdominal radiographs are compared to study dated 09/04/2017 and correlated with abdominal CT dated 09/04/2017. There is a nonobstructed abdominal bowel gas pattern. No evidence of intraperitoneal free air is seen. Cholecystectomy clips are identified in the right upper quadrant. Suture material and surgical clips are seen in the left lower quadrant. There are no abnormal abdominal calcifications. The skeletal structures are osteopenic. Lumbosacral spondylosis is observed. Cardiomegaly is noted. There is a small right pleural effusion with right basilar atelectasis. IMPRESSION: 1. Nonobstructed abdominal bowel gas pattern. 2. Cardiomegaly and right pleural effusion. Electronically signed by: Derrek Silva M.D. 01/01/2018 12:39 PM Dictated Date/Time: 01/01/2018 12:37 PM Laboratory Results 01/01/18 10:36 Red Blood Count 3.85, Mean Corpuscular Volume 87.0, Mean Corpuscular Hemoglobin 30.4, Mean Corpuscular Hemoglobin Concent 34.9, Mean Platelet Volume 9.7, Neutrophils (%) (Auto) 68.1, Lymphocytes (%) (Auto) 20.8, Monocytes (%) (Auto) 8.1, Eosinophils (%) (Auto) 2.4, Basophils (%) (Auto) 0.3, Neutrophils # (Auto) 4.17, Lymphocytes # (Auto) 1.28, Monocytes # (Auto) 0.50, Eosinophils # (Auto) 0.15, Basophils # (Auto) 0.02 01/01/18 10:36 Test 01/01/18 10:36 01/01/18 11:20 White Blood Count 6.14 K/uL (4.8-10.8) Red Blood Count 3.85 M/uL (4.7-6.1) Hemoglobin 11.7 g/dL (14.0-18.0) Hematocrit 33.5 % (42-52) Mean Corpuscular Volume 87.0 fL (80-100) Mean Corpuscular Hemoglobin 30.4 pg (25-34) Mean Corpuscular Hemoglobin Concent 34.9 g/dl (32-36) Platelet Count 91 K/uL (130-400) Mean Platelet Volume 9.7 fL (7.4-10.4) Neutrophils (%) (Auto) 68.1 % Lymphocytes (%) (Auto) 20.8 % Monocytes (%) (Auto) 8.1 % Eosinophils (%) (Auto) 2.4 % Basophils (%) (Auto) 0.3 % Neutrophils # (Auto) 4.17 K/uL (1.4-6.5) Lymphocytes # (Auto) 1.28 K/uL (1.2-3.4) Monocytes # (Auto) 0.50 K/uL (0.11-0.59) Eosinophils # (Auto) 0.15 K/uL (0-0.5) Basophils # (Auto) 0.02 K/uL (0-0.2) RDW Standard Deviation 49.2 fL (36.4-46.3) RDW Coefficient of Variation 15.4 % (11.5-14.5) Immature Granulocyte % (Auto) 0.3 % Immature Granulocyte # (Auto) 0.02 K/uL (0.00-0.02) Ovalocytes 1+ Prothrombin Time 11.2 SECONDS (9.0-12.0) Prothromb Time International Ratio 1.1 (0.9-1.1) Activated Partial Thromboplast Time 30.0 SECONDS (21.0-31.0) Partial Thromboplastin Ratio 1.2 Anion Gap 6.0 mmol/L (3-11) Est Creatinine Clear Calc Drug Dose 69.5 ml/min Estimated GFR () 73.6 Estimated GFR (Non- 63.5 BUN/Creatinine Ratio 25.9 (10-20) Calcium Level 8.9 mg/dl (8.5-10.1) Total Bilirubin 0.8 mg/dl (0.2-1) Aspartate Amino Transf (AST/SGOT) 18 U/L (15-37) Alanine Aminotransferase (ALT/SGPT) 18 U/L (12-78) Alkaline Phosphatase 73 U/L (45-117) Pro-B-Type Natriuretic Peptide 189 pg/ml (0-1800) Total Protein 6.1 gm/dl (6.4-8.2) Albumin 2.8 gm/dl (3.4-5.0) Globulin 3.3 gm/dl (2.5-4.0) Albumin/Globulin Ratio 0.8 (0.9-2) Chemistry Specimen Hemolysis Urine Color YELLOW Urine Appearance CLEAR (CLEAR) Urine pH 5.5 (4.5-7.5) Urine Specific [place] 1.021 (1.000-1.030) Urine Protein NEG (NEG) Urine Glucose (UA) NEG (NEG) Urine Ketones NEG (NEG) Urine Occult Blood NEG (NEG) Urine Nitrite NEG (NEG) Urine Bilirubin NEG (NEG) Urine Urobilinogen NEG (NEG) Urine Leukocyte Esterase NEG (NEG) Laboratory results per my review. Medications Administered Medications (Trade) Dose Ordered Sig/Ronna Route Start Time Stop Time Status Last Admin Dose Admin Albuterol Sulfate (Ventolin 0.083% 2.5MG/3ML Neb) 7.5 mg NOW STAT INH 01/01/18 10:23 01/01/18 10:25 DC 01/01/18 10:43 7.5 MG Levofloxacin (Levaquin / D5W) 750 mg NOW ONCE IV 01/01/18 10:30 01/01/18 10:31 DC 01/01/18 10:44 750 MG Methylprednisolone Sodium Succinate (Solu-Medrol IV) 125 mg NOW STAT IV 01/01/18 10:25 01/01/18 10:26 DC 01/01/18 10:44 125 MG ECG Per My Interpretation Indication: SOB/dyspnea Rate (beats per minute): 91 Rhythm: sinus rhythm Findings: left axis deviation, other (poor baseline. No PVCs) Comparison ECG Date: 09/04/2017 Change: no significant change ED Course ED COURSE: Vital signs were reviewed and showed hypertension that was felt to be situational The patients medical record was reviewed The above diagnostic studies were performed and reviewed. ED treatments and interventions as stated above. 1019: The patient was evaluated in room A3. A complete history and physical examination was performed. 1023: Ordered Albuterol Sulfate 7.5 mg INH 1025: Ordered Solu-Medrol 125 mg IV 1030: Ordered Levofloxacin 750 mg IV 1156: I updated with the patient, who still feels short of breath. Going for x- ray. 1257: I spoke with Dr. Cali - [facility] Hospitalist. He will reevaluate the patient for hospitalization. Based on the patients age, coexisting illnesses, exam and lab findings the decision to treat as an inpatient was made. The patient remained stable while under my care. The patient will be evaluated for further management. Medical Decision Differential diagnoses includes but is not limited to pneumonia, bronchitis, COPD/Asthma exacerbation, pneumothorax, pulmonary embolism, congestive heart failure, acute coronary syndrome Patient is a 77-year-old male referred in by PCP for shortness of breath. Patient notes shortness of breath has been worsening over the past 3 days. He notes he has had a yellow productive cough as well. On exam he has diffuse expiratory wheezing and is moving minimal air. He was given an hour-long nebulizer treatment. He was given steroids and a chest x-ray was obtained. Obstruction series was unremarkable as well as he did have some mild epigastric pain. History of a cholecystectomy. Patient was covered with IV antibiotics due to the COPD exacerbation. EKG was unremarkable. Patient was still dyspneic and using accessory muscles after the hour-long nebulizer treatment. I did feel it was prudent to observe him overnight. Discussed with internal medicine. Updated him at bedside. He is admitted for COPD exacerbation. Discussed with Pt concerning signs and symptoms to watch out for. Pt was instructed to follow up with their PCP and discussed with the patient their option to return to the ED at anytime for persistent or worsening symptoms. The appropriate anticipatory guidance and out-patient management, including indications for return to the emergency department, were explained at length to the patient and understood. Medication Reconcilliation Current Medication List: was personally reviewed by me Blood Pressure Screening Patient's blood pressure: Elevated blood pressure Blood pressure disposition: Elevated BP felt to be situational Consults Time Called: [phone] Consulting Physician: Dr. Viraj Coleman [facility] Hospitalist Returned Call: [phone] Viraj Coleman [facility] Hospitalist. He will reevaluate the patient for hospitalization. Impression Primary Impression: COPD exacerbation Scribe Attestation The scribe's documentation has been prepared under my direction and personally reviewed by me in its entirety. I confirm that the note above accurately reflects all work, treatment, procedures, and medical decision making performed by me. Departure Information Dispostion Being Evaluated By Hospitalist Domo Higuera D.O. (PCP) Patient Instructions My [facility]
[2018-01-01] MEDS: INSULIN ASPART 100 UNITS/ML 3 ML PEN SC SCH ×2 (16:30→22:11)
[2018-01-01] MEDS: NITROGLYCERIN 0.4 MG SL PER TAB CHARGE SL PRN ×2 (17:39→17:49)
[2018-01-01] MEDS: METHYLPREDNISOLONE IV 60 MG in SYRINGE 0 ML IV SCH ×2 (17:44→22:35)
[2018-01-01] MEDS: HEPARIN SOD 5000 UNIT/0.5 ML CARP SQ SCH (17:55)
[2018-01-01] MEDS ORDERED: INSULIN GLARGINE 45 UNIT SL SCH (21:00)
[2018-01-01] MEDS ORDERED: INSULIN GLARGINE SOLOSTAR 100 UNITS/ML 3 ML PEN SC SCH (21:00)
--- NOTE | 2018-01-01 22:07 | DIAGNOSTIC IMAGING REPORT ---
BILATERAL LOWER EXTREMITY VENOUS DOPPLER HISTORY: Shortness of breath, COMPARISON STUDY: None. FINDINGS: There is normal compressibility, flow, and augmentation within the bilateral lower extremity deep venous systems. IMPRESSION: No DVT within the right or left lower extremity. Electronically signed by: Baldemar Temple M.D. 01/01/2018 10:05 PM Dictated Date/Time: 01/01/2018 10:05 PM
[2018-01-01] MEDS: TAMSULOSIN HCL 0.4 MG CAP PO SCH (22:09)
[2018-01-01] MEDS: CARVEDILOL 25 MG TAB PO SCH (22:10)
[2018-01-01] MEDS: INSULIN GLARGINE SOLOSTAR 100 UNITS/ML 3 ML PEN SC SCH (22:11)
[2018-01-01] MEDS: PANTOprazole SOD 40 MG TAB PO SCH (22:34)
[2018-01-01] MEDS: PRAVASTATIN SOD 10 MG TAB PO SCH (22:34)
[2018-01-01] MEDS: IBUPROFEN 600 MG TAB PO SCH (22:35)
[2018-01-02] VITALS (17 sets, daily range): BP systolic 122–178; BP diastolic 79–100; PULSE 48–74; TEMP 36.3–36.6; O2SAT 94–100
[2018-01-02] MEDS: ALBUT/IPRATROP 3MG/0.5MG NEB 3 ML VIAL INH SCH ×4 (01:38→19:14)
[2018-01-02] MEDS: METHYLPREDNISOLONE IV 60 MG in SYRINGE 0 ML IV SCH ×4 (05:45→22:42)
[2018-01-02] MEDS: INSULIN ASPART 100 UNITS/ML 3 ML PEN SC SCH ×4 (08:20→20:49)
[2018-01-02] MEDS: HEPARIN SOD 5000 UNIT/0.5 ML CARP SQ SCH ×3 (08:21→15:46)
[2018-01-02] MEDS: LACTULOSE SYRUP 20 GM/30 ML UDC PO SCH (08:22)
[2018-01-02] MEDS: PANTOprazole SOD 40 MG TAB PO SCH (08:24)
[2018-01-02] MEDS: IBUPROFEN 600 MG TAB PO SCH ×3 (08:25→20:41)
[2018-01-02] MEDS: TAMSULOSIN HCL 0.4 MG CAP PO SCH (08:25)
[2018-01-02] MEDS: FINASTERIDE 5 MG TAB PO SCH (08:26)
[2018-01-02] MEDS: GABAPENTIN 300 MG CAP PO SCH (08:26)
[2018-01-02] MEDS: CARVEDILOL 25 MG TAB PO SCH (08:26)
[2018-01-02] MEDS: CALCIUM POLYCARBOPHIL 1 TAB PO SCH (08:27)
[2018-01-02] MEDS: ALLOPURINOL 300 MG TAB PO SCH (08:27)
[2018-01-02] MEDS: LOSARTAN POTASSIUM 50 MG TAB PO SCH (08:27)
[2018-01-02] MEDS: LEVOTHYROXINE 50 MCG TAB PO SCH (08:27)
[2018-01-02] MEDS: MAGNESIUM OXIDE 400 MG TAB PO SCH (08:28)
[2018-01-02] MEDS: PAROXETINE 20 MG TAB PO SCH (08:28)
[2018-01-02] MEDS ORDERED: ASPIRIN 81 MG ECTAB PO SCH (09:00)
[2018-01-02] MEDS ORDERED: ASPIRIN 81 MG CHEW PO SCH (09:00)
[2018-01-02] MEDS ORDERED: NURSING VERBAL MED ORDER ONE ×2 (14:00→20:00)
[2018-01-02] MEDS ORDERED: CYANOCOBALAMIN 1000 MCG/ML VIAL IM ONE (14:45)
[2018-01-02] MEDS ORDERED: AMLODIPINE BESYLATE 5 MG TAB PO ONE (15:15)
[2018-01-02] MEDS: NITROGLYCERIN 0.4 MG SL PER TAB CHARGE SL PRN (15:15)
[2018-01-02] MEDS ORDERED: POTASSIUM CHLORIDE 10 MEQ TABCR PO STA (15:48)
[2018-01-02] MEDS ORDERED: FUROSEMIDE INJ 20 MG in SYRINGE 0 ML IV ONE (16:00)
--- NOTE | 2018-01-02 16:46 | CARDIOLOGY CONSULTATION ---
DATE OF CONSULTATION: 01/02/2018 CARDIOLOGY CONSULTATION REFERRING PHYSICIAN: Dr. Ray Lovett MD INDICATIONS: Chest pain, persistent. HISTORY OF PRESENT ILLNESS: Patient is a complex 77-year-old male. His history includes longstanding hypertension, chronic chest pain and chest wall pain with extensive evaluations including diagnostic cardiac catheterization in 1997, 2008, 2010, 2012 and most recent cardiac catheterization in March of 2015 with mild luminal irregularities of less than 30% and a ramus intermedius with otherwise nonobstructive disease. His evaluations have also included stress nuclear imaging, most recently performed in October of 2016 with negative suggestion. Underlying medical problems in addition to the findings above include chronic obstructive lung disease, chronic sinus bradycardia, prior history of cerebellar stroke, dyslipidemia, type 2 diabetes mellitus, hepatic cirrhosis and lung carcinoma status post right lower lobectomy. His outpatient records reflective of variable dose of carvedilol with drug reduced at times due to bradycardia with minimal dose previously 3.125 mg twice per day. He notes difficulties with shortness of breath over the past month's time as well as chest pressure pain, feels breathless at many times, feels he was evaluated but not admitted to the hospital in November, in [place] while visiting friends noted to be bradycardic at times. He presents this admission now noting a referral to the Emergency Room with symptoms as described, cough, upper quadrant pain and shortness of breath with moderate wheezing. He was referred from outpatient facility for admission. He denies fevers, chills. Does have moderate wheezing. Notes no specific production of sputum. Notes no melena, hematochezia, dysuria or hematuria. Weight has been variable. Appetite has been fair. Does note some mild disruption on sleep. He has been taking medications as prescribed, though dosages and medications do not vary from outpatient record. ALLERGIES: DOBUTAMINE, IODINATED CONTRAST, MEPERIDINE, OXYCODONE, AND PERFLUTREN. MEDICATIONS: Medications prior to hospitalization were allopurinol 300 mg p.o. day, carvedilol 12.5 mg twice per day per record, though with prior records reflecting 3.125 mg twice per day, cholecalciferol 2000 q.p.m., vitamin D 1000 mcg monthly, Proscar 5 mg p.o. day, gabapentin 300 mg p.o. day, insulin, lactulose, levothyroxine 50 mcg per day, losartan 50 mg p.o. day, Mag-Ox 400 mg p.o. day, Protonix 40 mg p.o. day, Paxil 10 mg p.o. day, pravastatin 10 mg p.o. day, tamsulosin 0.4 mg p.o. day. Patient notes aspirin was stopped by primary care physician, at least as his impression, he had previously been on 81 mg per day. PAST SURGICAL HISTORY: Notable for right lower lobectomy in April 2017, past inguinal hernia repair with mesh with multiple revisions, past cholecystectomy, partial colectomy in 2007, ventral hernia repair, right total knee arthroplasty. FAMILY HISTORY: Positive for heart disease in mother. SOCIAL HISTORY: Patient had a longstanding usp and disability after pulmonary exacerbation, occupational; past history of tobacco use, discontinued in 1971. No recent alcohol use since 1970. PAST MEDICAL HISTORY: As described above. In addition, he carries a history of nonalcoholic fatty liver disease with cirrhosis, hypothyroidism, possible hemochromatosis and Orellana's esophagus. PHYSICAL EXAMINATION: GENERAL: Patient is an age-appropriate male, noting chronic ongoing chest discomfort, low level, eased but not relieved with nitroglycerin for greater than 24 hours since admission. VITAL SIGNS: Blood pressures are elevated 178/100. HEENT: Normocephalic and atraumatic. Nares without discharge. Throat was clear. NECK: Supple without thyromegaly, lymphadenopathy, JVD. LUNGS: Notable for rales and crackles basilar, left greater than right. CARDIOVASCULAR: Regular with distant heart sounds. There is no S3 gallop. ABDOMEN: Obese, soft with mild distention. EXTREMITIES: Reveal 1-2+ lower extremity edema. LABORATORY DATA: White cell count 6.1, hemoglobin is 11.7, hematocrit is 33.5. Sodium is 141, potassium is 3.8, chloride is 110, bicarbonate is 25, BUN is 29, creatinine is 1.1, glucose is 132. Albumin is 2.8. Troponin I x3 is less than 0.015. Chest x-ray on 01/01/2018 demonstrated small chronic right pleural effusion, no infiltrate. CT scan of the chest revealed no mass with chronic loculated right pleural effusion. EKG on presentation demonstrated sinus rhythm, nonspecific ST segment changes with similar findings and we will repeat study from today. IMPRESSION: A 77-year-old male with history of hypertension, chronic obstructive lung disease, prior lung lobectomy, past history of ongoing and longstanding chronic chest pain with extensive evaluations including multiple diagnostic cardiac catheterization and stress test. Cardiac enzymes and EKGs do not suggest myocardial ischemia despite ongoing chest pain for greater than 24 hours. I suspect there is multifactorial contributions including chronic complaints. He is relatively bradycardic at rest. RECOMMENDATIONS: We will optimize medical therapies, specifically we will reduce carvedilol to 6.25 mg twice per day. This represents an increase from outpatient recommend, resume aspirin, previously held, per patient. Amlodipine will be added at 5 mg per day for blood pressure control in addition to usual medication, losartan, single dose IV furosemide will be administered today as exam suggests mild volume overload. We will follow as clinical course progresses. Past evaluation of cardiac function includes stress nuclear imaging in October of 2016 with normal LV systolic function, with normal perfusion at that time as well. Echocardiogram in 2016 with normal biventricular function. Discussed findings and plans with patient, he is agreeable.
[2018-01-02] MEDS: PRAVASTATIN SOD 10 MG TAB PO SCH (20:41)
[2018-01-02] MEDS: CARVEDILOL 6.25 MG TAB PO SCH (20:42)
[2018-01-02] MEDS: INSULIN GLARGINE SOLOSTAR 100 UNITS/ML 3 ML PEN SC SCH (20:49)
--- NOTE | 2018-01-02 22:09 | Progress Note ---
Subjective Date of Service: Jan 02, 2018. Subjective Pt evaluation today including: conversation w/ patient, physical exam Patient was visited multiple times throughout day. 77 yo male reports having chest pain. He reports having multiple episodes of chest pain today. He states that he chest pain is sharp located on the midclavicular line on the 6 intercostal space and radiates to his left shoulder at times. This is accompanied by shortness of breath Patient reports that his SOB has worsened over past few weeks. Patient denies fever, chills, diaphoresis. Patient was then asked for me to come back as he continues to have chest pain. I explained to patient that he had negative troponin and negative EKG. I also discussed with patient that he will see cardiology during this hospital stay. Problem List Please refer to analysis and plan. Review of Systems Constitutional: No fever, No chills Eyes: No worsening of vision ENT: No hearing loss Respiratory: + shortness of breath, + dyspnea on exertion, + dyspnea at rest Cardiac: + chest pain, No orthopnea, No edema Abdomen: No pain Musculoskeletal: No joint pain Neurologic: No memory loss Psychiatric: No depression symptoms Heme: No abnormal bleeding/bruising Endo: + fatigue Skin: No rash All Other Systems: Reviewed and Negative Objective Vital Signs Date Time Temp Pulse Resp B/P (MAP) Pulse Ox O2 Delivery O2 Flow Rate FiO2 01/02/18 20:40 62 145/90 (108) 01/02/18 19:43 36.3 60 20 129/90 (103) 100 Nasal Cannula 2.0 01/02/18 19:15 62 16 94 Nasal Cannula 2.0 01/02/18 16:48 54 156/81 (106) 98 Nasal Cannula 2.0 01/02/18 16:00 98 Nasal Cannula 2.0 01/02/18 16:00 36.4 01/02/18 15:28 60 122/84 (97) 98 Nasal Cannula 2.0 01/02/18 15:12 61 178/100 (126) 01/02/18 14:01 61 18 99 Nasal Cannula 2.0 01/02/18 11:33 36.3 56 22 161/84 (109) 96 Nasal Cannula 2.0 01/02/18 08:19 66 164/94 (117) 01/02/18 08:00 98 Nasal Cannula 2.0 8/14/18 07:07 48 18 98 Nasal Cannula 2.0 01/02/18 07:04 36.3 61 22 161/81 (107) 99 Nasal Cannula 2.0 01/02/18 04:40 36.5 67 18 164/91 (115) 97 2.0 01/02/18 01:38 74 18 99 Nasal Cannula 2.0 01/02/18 00:00 99 Nasal Cannula 2.0 01/01/18 23:47 36.6 76 18 134/92 (106) 99 Room Air Physical Exam Comments: General Appearance: WD/WN, + pertinent finding (Obese, elderly male -does not appear to be in distress, no longer do you hear audible wheezing) Head: normocephalic Eyes: normal inspection ENT: normal ENT inspection, pharynx normal Neck: supple, thyroid normal Respiratory/Chest: chest non-tender, + pertinent finding (Very poor BL air movement), no wheezing Cardiovascular: regular rate, rhythm, no edema, no gallop, no JVD, normal peripheral pulses Abdomen/GI: normal bowel sounds, no abdominal tenderness today Back: normal inspection, no CVA tenderness Extremities/Musculoskelatal: normal inspection, no calf tenderness, normal capillary refill Neurologic/Psych: rn telehealth II-XII nml as tested, no motor/sensory deficits, alert, normal reflexes Skin: normal color Laboratory Results Last 24 Hours Test 01/02/18 07:37 01/02/18 11:25 01/02/18 16:32 01/02/18 20:04 Bedside Glucose 163 mg/dl 206 mg/dl 169 mg/dl 209 mg/dl Assessment and Plan 77 y/o M Hx COPD, lung CA - post RLL lobectomy, HTN, HPL, CVA, DM II, hypothyroidism, gout, ETOH cirrhosis, recurrent C diff. The pt presents from his MDs office where he became acutely SOB and diaphoretic. He was directed to the ER therefore. He states he has had a productive cough and upper quadrant abdominal discomfort since the prior evening. He has a times coughed forcefully leading him to retch and also to vomit once. He denies any CP, diarrhea or constipation. He has not had any fevers. Cough, SOB/wheezing, COPD - The pt will be treated for COPD exacerbation. Owing to a productive cough, he received Levaquin in the ER. No longer having productive cough. We would choose to avoid antibiotics if possible due to a history of recurrent, severe C diff. CT scan of chest and x-rays were negative for infiltrates A sputum culture was requested. Currently requiring 02. Will continue round the clock nebs. Will have patient followup with thoracic surgery during hospital stay Patient airways remain tight, but no longer having wheezing. Nurse brought up concern over elevated D-DIMER, however, his well's criteria is low, at zero and had negative lower extremity doppler. Chest pain: D/W cardio, will hold off cath as patient has been having chest pain intermittently and has had multiple caths in the past. Trop x3 negative, EKG no significant change. Abdominal pain - unclear etiology - may be related to strain form coughing or referred pain from a pulmonary process. - We will consider additional imaging if this does not resolve or worsens. -currently has improved, will monitor. DM II - placed on SS History of CVA, HTN, HPL - we will continue ASA, Coreg, Pravastatin Hypothyroidism - cont Synthroid Gout - cont Allopurinol Cirrhosis - cont daily lactulose spent 65 minutes managing case, and 30 minutes with indirect patient care, this included reviewing outpatient records, discussing with consultants, nursing staff.
[2018-01-03] VITALS (11 sets, daily range): BP systolic 108–135; BP diastolic 70–85; PULSE 53–70; TEMP 36.2–36.7; O2SAT 93–99
[2018-01-03] MEDS: ALBUT/IPRATROP 3MG/0.5MG NEB 3 ML VIAL INH SCH ×4 (02:13→19:45)
[2018-01-03] MEDS: LEVOTHYROXINE 50 MCG TAB PO SCH (05:51)
[2018-01-03] MEDS: METHYLPREDNISOLONE IV 60 MG in SYRINGE 0 ML IV SCH ×3 (05:51→20:25)
[2018-01-03 07:40] LABS: CALCIUM 9.7 mg/dl (8.5-10.1); CREATININE 1.26 mg/dl (0.60-1.40)
[2018-01-03] MEDS: INSULIN ASPART 100 UNITS/ML 3 ML PEN SC SCH ×4 (08:42→20:37)
[2018-01-03] MEDS: LACTULOSE SYRUP 20 GM/30 ML UDC PO SCH (08:44)
[2018-01-03] MEDS: ALLOPURINOL 300 MG TAB PO SCH (08:45)
[2018-01-03] MEDS: IBUPROFEN 600 MG TAB PO SCH ×3 (08:45→20:30)
[2018-01-03] MEDS: GABAPENTIN 300 MG CAP PO SCH (08:45)
[2018-01-03] MEDS: LOSARTAN POTASSIUM 50 MG TAB PO SCH (08:46)
[2018-01-03] MEDS: MAGNESIUM OXIDE 400 MG TAB PO SCH (08:47)
[2018-01-03] MEDS: FINASTERIDE 5 MG TAB PO SCH (08:47)
[2018-01-03] MEDS: CARVEDILOL 6.25 MG TAB PO SCH (08:48)
[2018-01-03] MEDS: CALCIUM POLYCARBOPHIL 1 TAB PO SCH (08:48)
[2018-01-03] MEDS: PAROXETINE 20 MG TAB PO SCH (08:48)
[2018-01-03] MEDS: AMLODIPINE BESYLATE 5 MG TAB PO SCH (08:48)
[2018-01-03] MEDS: CLOPIDOGREL BISULFATE 75 MG TAB PO SCH (08:49)
[2018-01-03] MEDS: HEPARIN SOD 5000 UNIT/0.5 ML CARP SQ SCH ×3 (08:58→16:49)
--- NOTE | 2018-01-03 09:16 | SURGICAL CONSULTATION ---
DATE OF CONSULTATION: 01/03/2018 REASON FOR CONSULTATION: Shortness of breath and right pleural effusion. HISTORY OF PRESENT ILLNESS: This is a 77-year-old male whom I know well, who underwent a robot-assisted thoracoscopic wedge resection and a right lower lobectomy. This was on 05/10/2017. He developed a right pleural effusion postop and we tapped him. He had a stage I non-small cell lung carcinoma, and his nodes were negative. He improved, and I saw him in the office, and actually, I was quite pleased with him, although he did have some dyspnea. I was supposed to see him 2 days ago in the office, but when he came to the office, he was markedly hypoxic with saturations in the low 80s. He also did not look good and was transferred immediately to the Emergency Room. I never saw him. My nurses sent him there, and he was admitted. I discussed this case with Dr. Lovett yesterday, and we are going to see about this right pleural effusion. He became acutely short of breath, it is unclear why that has occurred as he did not have evidence of pulmonary embolism or a pneumonia. PAST MEDICAL HISTORY: 1. Non-small cell lung carcinoma stage I, status post right lower lobectomy in 04/2017. 2. Gout. 3. Coronary artery disease. 4. Benign prostatic hypertrophy. 5. Hypothyroidism. 6. Hypertension. 7. Probable gastroesophageal reflux disease, questionable hemochromatosis. 8. Orellana's esophagus. 9. Questionable cirrhosis. PAST SURGICAL HISTORY: 1. Bilateral inguinal hernia repair. 2. Right lower lobectomy. 3. Cholecystectomy. 4. Partial colectomy. 5. Ventral hernia repair. 6. Right total knee arthroplasty. MEDICATIONS: 1. Aspirin, although he had been taken off this. 2. Allopurinol. 3. Flomax. 4. Coreg. 5. Proscar. 6. Neurontin. 7. Protonix. 8. Paxil. 9. Pravastatin. 10. Lactulose. 11. Insulin. 12. Cholecalciferol. 13. Vitamin D. ALLERGIES: 1. IODINATED CONTRAST. 2. DEMEROL. 3. PERFLUTREN. 4. DOBUTAMINE. 5. OXYCODONE. SOCIAL HISTORY: Patient is retired partly because of his pulmonary issues. He was a smoker. He quit smoking and using alcohol many years ago. He has a good support system with his family. FAMILY MEDICAL HISTORY: His mother had coronary artery disease. REVIEW OF SYSTEMS: Patient actually has been doing pretty well. I had seen him in the office a couple of months ago, and I thought he looked very good. He was physically active. He did have dyspnea on exertion of course. He states that he has been eating well, although he did get tired on occasion. He denied fevers, chills, or productive cough, and actually he did not feel bad until earlier this week when he became markedly short of breath and felt very weak. He did not have a productive cough, although he is coughing. He has had no hemoptysis. He denies chest pain and palpitations, but he does have some epigastric pain and a bit more abdominal pain. He denies nausea, vomiting, or diarrhea. He has had no symptoms although he is treated for his benign prostatic hypertrophy. He has had no skin breakdown. He has had no visual or auditory symptoms. He denies focal deficits or seizures. PHYSICAL EXAMINATION: GENERAL: This is an ill-appearing male who appears his stated age of 77. He stands 5 feet 8 inches tall and weighs 248 pounds. HEENT: Extraocular movements are intact. Pupils are equal, round, and reactive. He is edentulous. Tongue is midline. Oral mucosa is moist. NECK: Supple. I detect no supraclavicular or cervical lymphadenopathy, neck vein distention, or carotid bruits. He has no lymphadenopathy. LUNGS: He has mildly decreased breath sounds in the right, but quite frankly, I think he sounds pretty good. He certainly does not have any wheezing, although he did have a few crackles in both bases. CARDIOVASCULAR: He has a regular rate and rhythm of his heart. GASTROINTESTINAL: His abdomen is obese and really not tender. EXTREMITIES: He has 1+ edema, a bit worse in the left than the right leg but has no earmarks of venous insufficiency such as hemosiderin deposition or lipodermatosclerosis. I have difficulty feeling pulses. NEUROLOGIC: He is completely awake and alert, and he has no focal deficits. IMAGING: I reviewed his CT scan. The fluid has actually decreased in size. In addition, I see no evidence of infiltrates. He has no evidence of recurrent disease. I think he also has evidence of cirrhosis on the CT. ASSESSMENT AND PLAN: Acute shortness of breath with no evidence of pulmonary embolism. I am not really sure what to make of his acute decompensation. The fluid in his right base is not a very large volume. I doubt that this is going to affect him much. In addition, it is less than he had in the past. If we do not have another good reason for his decompensation, then I would consider tapping this.
[2018-01-03] MEDS ORDERED: AZITHROMYCIN 250 MG TAB PO ONE (13:15)
[2018-01-03] MEDS ORDERED: SALMETEROL XINAFOATE 50MCG 28 BLISTER INH INH ONE (13:15)
--- NOTE | 2018-01-03 14:40 | PROGRESS NOTE ---
DATE: 01/03/2018 The patient seen and examined. Chart, medications, telemetry reviewed. SUBJECTIVE: The patient still has low-grade chest pain this morning, though clinically appears improved with good diuresis overnight. Blood pressures have come under better control. PHYSICAL EXAMINATION: VITAL SIGNS: Heart rate is 57, blood pressure is 117/75, O2 saturations 94% on 2 liters nasal cannula. NECK: Neck is without jugular venous distention. LUNGS: Reveal coarse wheezes throughout, crackles at the right base. CARDIOVASCULAR: Regular with distant heart sounds. There is no audible murmur or rub. ABDOMEN: Soft, nontender. EXTREMITIES: Without cyanosis or clubbing. There is improved peripheral edema. LABORATORY DATA: Sodium is 138, potassium is 4.5, chloride is 107, bicarbonate is 25, BUN is 42, creatinine is 1.26. IMPRESSION: A 77-year-old male with issues as follows: 1. Noncardiac chest pain. 2. Hypertension, improved with the addition of amlodipine to regimen. Will reduce carvedilol further given resting bradycardia to 3.125 mg twice per day. The patient will likely warrant diuretic dosing, furosemide 20 mg 1-2 days per week to aid in fluid management and blood pressure control. No evidence to suggest ongoing ischemia. Pulmonary issues are being addressed.
[2018-01-03] MEDS ORDERED: LACTULOSE SYRUP 30 GM/45 ML UDP PO STA (16:12)
[2018-01-03] MEDS: SALMETEROL XINAFOATE 50MCG 28 BLISTER INH INH SCH (20:27)
[2018-01-03] MEDS: PRAVASTATIN SOD 10 MG TAB PO SCH (20:29)
[2018-01-03] MEDS: TAMSULOSIN HCL 0.4 MG CAP PO SCH (20:29)
[2018-01-03] MEDS: CARVEDILOL 3.125 MG TAB PO SCH (20:30)
[2018-01-03] MEDS: PANTOprazole SOD 40 MG TAB PO SCH (20:31)
[2018-01-03] MEDS: INSULIN GLARGINE SOLOSTAR 100 UNITS/ML 3 ML PEN SC SCH (20:38)
--- NOTE | 2018-01-03 22:21 | Progress Note ---
Subjective Date of Service: Jan 03, 2018. Subjective Pt evaluation today including: conversation w/ patient 77 yo male who reports no significant improvement in his breathing today. Patient reports still being SOB at rest. Patient reports intermittent chest pain. Problem List Please refer to analysis and plan Review of Systems Constitutional: No fever, No chills Eyes: No worsening of vision ENT: No hearing loss Respiratory: + shortness of breath, + dyspnea on exertion, + dyspnea at rest Cardiac: + chest pain, No orthopnea, No edema Abdomen: No pain Musculoskeletal: No joint pain Neurologic: No memory loss Psychiatric: No depression symptoms Heme: No abnormal bleeding/bruising Endo: + fatigue Skin: No rash All Other Systems: Reviewed and Negative Objective Vital Signs Date Time Temp Pulse Resp B/P (MAP) Pulse Ox O2 Delivery O2 Flow Rate FiO2 01/03/18 19:46 67 18 98 Nasal Cannula 2.0 01/03/18 19:31 36.3 66 18 132/80 (97) 99 Nasal Cannula 2.0 01/03/18 14:56 36.2 53 20 133/85 (101) 93 Nasal Cannula 2.0 01/03/18 14:11 54 18 95 Nasal Cannula 2.0 01/03/18 11:06 36.7 57 18 117/75 (89) 99 Nasal Cannula 2.0 01/03/18 09:00 Nasal Cannula 2.0 01/03/18 08:45 64 133/85 (101) 01/03/18 07:26 36.4 61 20 118/83 (95) 99 Nasal Cannula 2.0 01/03/18 06:35 63 18 99 Nasal Cannula 2.0 01/03/18 06:35 70 26 135/79 (97) 97 Nasal Cannula 2.0 01/03/18 04:29 36.4 60 18 108/70 (83) 99 Nasal Cannula 2.0 01/03/18 00:00 99 Nasal Cannula 2.0 01/02/18 23:14 36.6 64 18 146/79 (101) 99 2.0 Physical Exam Comments: General Appearance: WD/WN, + pertinent finding (Obese, elderly male -does not appear to be in distress, no longer do you hear audible wheezing) Head: normocephalic Eyes: normal inspection ENT: normal ENT inspection, pharynx normal Neck: supple, thyroid normal Respiratory/Chest: chest non-tender, + pertinent finding (Very poor BL air movement), no wheezing Cardiovascular: regular rate, rhythm, no edema, no gallop, no JVD, normal peripheral pulses Abdomen/GI: normal bowel sounds, + abdominal tenderness today Back: normal inspection, no CVA tenderness Extremities/Musculoskelatal: normal inspection, no calf tenderness, normal capillary refill Neurologic/Psych: needle bar molder II-XII nml as tested, no motor/sensory deficits, alert, normal reflexes Skin: normal color Laboratory Results Last 24 Hours Test 01/03/18 05:50 01/03/18 07:40 01/03/18 07:46 01/03/18 11:39 Sodium Level 138 mmol/L Potassium Level mmol/L 4.5 mmol/L Chloride Level 107 mmol/L Carbon Dioxide Level 25 mmol/L Anion Gap 7.0 mmol/L Blood Urea Nitrogen 42 mg/dl Creatinine 1.26 mg/dl Est Creatinine Clear Calc Drug Dose 60.7 ml/min Estimated GFR () 63.8 Estimated GFR (Non- 55.0 BUN/Creatinine Ratio 33.0 Random Glucose 185 mg/dl Calcium Level 9.7 mg/dl Bedside Glucose 168 mg/dl 224 mg/dl Test 01/03/18 16:38 01/03/18 20:18 Bedside Glucose 192 mg/dl 274 mg/dl Assessment and Plan 77 y/o M Hx COPD, lung CA - post RLL lobectomy, HTN, HPL, CVA, DM II, hypothyroidism, gout, ETOH cirrhosis, recurrent C diff. The pt presents from his MDs office where he became acutely SOB and diaphoretic. He was directed to the ER therefore. He states he has had a productive cough and upper quadrant abdominal discomfort since the prior evening. He has a times coughed forcefully leading him to retch and also to vomit once. He denies any CP, diarrhea or constipation. He has not had any fevers. Cough, SOB/wheezing, COPD The pt will be treated for COPD exacerbation. Owing to a productive cough, he received Levaquin in the ER. No longer having productive cough. We would choose to avoid antibiotics if possible due to a history of recurrent, severe C diff. CT scan of chest and x-rays were negative for infiltrates A sputum culture was requested. Currently requiring 02. Will continue round the clock nebs. Will have patient followup with thoracic surgery during hospital stay Patient airways remain tight, but no longer having wheezing. Nurse brought up concern over elevated D-DIMER, however, his well's criteria is low, at zero and had negative lower extremity Doppler. added long acting beta daron. will taper IV steroids and started azithromycin Chest pain: D/W cardio, will hold off cath as patient has been having chest pain intermittently and has had multiple caths in the past. Trop x3 negative, EKG no significant change. Abdominal pain - unclear etiology - may be related to strain form coughing or referred pain from a pulmonary process. - We will consider additional imaging if this does not resolve or worsens. -Patient is tender to palpation. -Patient has known cirrhosis. This may be cause of pain. DM II - placed on SS History of CVA, HTN, HPL - we will continue ASA, Coreg, Pravastatin Hypothyroidism - cont Synthroid Gout - cont Allopurinol Cirrhosis - cont daily lactulose Spent 45 minutes in management of patient.
[2018-01-04] VITALS (13 sets, daily range): BP systolic 119–145; BP diastolic 70–86; PULSE 53–70; TEMP 36.4–36.7; O2SAT 91–100
[2018-01-04] MEDS: HEPARIN SOD 5000 UNIT/0.5 ML CARP SQ SCH ×3 (00:51→16:00)
[2018-01-04] MEDS: ALBUT/IPRATROP 3MG/0.5MG NEB 3 ML VIAL INH SCH ×4 (02:00→19:38)
[2018-01-04] MEDS: METHYLPREDNISOLONE IV 60 MG in SYRINGE 0 ML IV SCH ×3 (04:17→20:22)
[2018-01-04] MEDS: LEVOTHYROXINE 50 MCG TAB PO SCH (05:56)
[2018-01-04] MEDS: MAGNESIUM OXIDE 400 MG TAB PO SCH (08:19)
[2018-01-04] MEDS: PRAVASTATIN SOD 10 MG TAB PO SCH (08:19)
[2018-01-04] MEDS: PAROXETINE 20 MG TAB PO SCH (08:19)
[2018-01-04] MEDS: FINASTERIDE 5 MG TAB PO SCH (08:19)
[2018-01-04] MEDS: IBUPROFEN 600 MG TAB PO SCH ×3 (08:20→20:24)
[2018-01-04] MEDS: CARVEDILOL 3.125 MG TAB PO SCH ×2 (08:20→20:25)
[2018-01-04] MEDS: CALCIUM POLYCARBOPHIL 1 TAB PO SCH (08:20)
[2018-01-04] MEDS: ALLOPURINOL 300 MG TAB PO SCH (08:20)
[2018-01-04] MEDS: CLOPIDOGREL BISULFATE 75 MG TAB PO SCH (08:21)
[2018-01-04] MEDS: AMLODIPINE BESYLATE 5 MG TAB PO SCH (08:21)
[2018-01-04] MEDS: LOSARTAN POTASSIUM 50 MG TAB PO SCH (08:21)
[2018-01-04] MEDS: GABAPENTIN 300 MG CAP PO SCH (08:21)
[2018-01-04] MEDS: SALMETEROL XINAFOATE 50MCG 28 BLISTER INH INH SCH ×2 (08:22→20:22)
[2018-01-04] MEDS: LACTULOSE SYRUP 20 GM/30 ML UDC PO SCH (08:22)
[2018-01-04] MEDS: INSULIN ASPART 100 UNITS/ML 3 ML PEN SC SCH ×4 (08:29→20:33)
[2018-01-04] MEDS ORDERED: LACTULOSE SYRUP 30 GM/45 ML UDP PO ONE (08:46)
--- NOTE | 2018-01-04 10:00 | SURGERY PROGRESS NOTE ---
DATE: 01/04/2018 Mr. Bonner was seen today. His saturations are quite good on 2 L at 100%. He can probably be weaned off the oxygen. He complains of problems with his breathing, but really has problems with his epigastric pain. He is also tender to palpation. It may that there may be more of a GI component to this than I first realized. I am going to order an amylase and lipase on him.
--- NOTE | 2018-01-04 10:14 | PROGRESS NOTE ---
DATE: 01/04/2018 The patient is seen and examined. Chart, medications, telemetry reviewed. SUBJECTIVE: Patient feels improved this morning. Always has low-grade chest discomfort and cough, wheezing is substantially better. OBJECTIVE: VITAL SIGNS: Heart rate is 55, blood pressure is 145/86. NECK: Thin. There is no jugular venous distention. There is no carotid bruits. LUNGS: Clear to auscultation anteriorly with few scattered wheezes at the bases, prior rales have resolved. CARDIOVASCULAR: Regular. There is no S3 gallop. ABDOMEN: Soft. EXTREMITIES: Without cyanosis or clubbing. There is no peripheral edema. IMPRESSION: A 77-year-old male with history of longstanding noncardiac chest pain, chronic obstructive lung disease with acute exacerbation, hypertension with hypertensive heart disease. The patient is manifesting improvement. RECOMMENDATIONS: Would continue reduced dose of carvedilol 3.125 twice per day. Would not titrate this upward. If blood pressure increases, I would increase losartan. Would continue current dose of amlodipine, add furosemide at 20 mg 2 days per week as chronic measure therapy. The patient is stable from a cardiac standpoint, ongoing medical management of other issues are being done. We will sign off at this time. Contact with any questions.
--- NOTE | 2018-01-04 12:00 | Clinical Documentation Query ---
JONNY Saleh : CLINICAL VALIDATION QUERY This is for educational purposes at this time. No penalty for lack of response at this time. However, responses to these queries will affect response rates as of January 20. Thank you. As of January 2018, the patient problem list, as documented in the EMR, will reportedly be required to be maintained in an accurate and thorough manner. This is in order to be compliant with meaningful use, a set of standards designed to ensure EHR's produce better health outcomes. Accordingly, please review documentation as currently maintained in the record and consider updating/correcting as appropriate as some of the diagnoses below have significant risk of mortality associated with them and in the absence of treatment, may be considered fraudulent to [employer] party payers. Thank you. (1) Abdominal pain Status: Acute (2) Abdominal pain of unknown etiology Status: Acute (3) Altered mental status Status: Acute (4) Anemia Status: Acute (5) Back pain Status: Acute (6) C. difficile colitis Status: Acute (7) C. difficile diarrhea Status: Acute (8) Chronic headache Status: Acute (9) Compression fracture Status: Acute (10) Confusion Status: Acute (11) COPD exacerbation Status: Acute (12) Dehydration Status: Acute (13) Diarrhea Status: Acute (14) Displaced transcondylar fracture of left humerus Status: Acute (15) Headache Status: Acute (16) Hydronephrosis with renal calculous obstruction Status: Acute (17) Low back strain Status: Acute (18) Palpitation Status: Acute (19) Pleural effusion Status: Acute (20) Pneumothorax on right Status: Acute (21) Respiratory failure Status: Acute (22) Right sided weakness Status: Acute (23) RUQ pain Status: Acute Thank You, Jef Gordon, LAUREL [phone]
[2018-01-04 14:49] LABS: LIPASE 65 U/L (73-393)
[2018-01-04] MEDS: PANTOprazole SOD 40 MG TAB PO SCH (20:24)
[2018-01-04] MEDS: TAMSULOSIN HCL 0.4 MG CAP PO SCH (20:25)
[2018-01-04] MEDS: INSULIN GLARGINE SOLOSTAR 100 UNITS/ML 3 ML PEN SC SCH (20:32)
--- NOTE | 2018-01-04 22:23 | Progress Note ---
Subjective Date of Service: Jan 04, 2018. Subjective Pt evaluation today including: conversation w/ patient, physical exam 77 yo male reports feeling short of breath on exertion. Patient however reports feeling 80% back to his normal self. Patient states that he does feel short of breath at baseline but not to this degree. Patient currently denies any sputum production, fever, chills, nausea, vomiting. Problem List Please refer to analysis and plan. Review of Systems Constitutional: No fever Eyes: No worsening of vision ENT: No hearing loss Respiratory: + shortness of breath, + dyspnea on exertion Cardiac: + chest pain Abdomen: No pain Neurologic: No memory loss Psychiatric: No depression symptoms Heme: No abnormal bleeding/bruising Endo: + fatigue Skin: No rash All Other Systems: Reviewed and Negative Objective Vital Signs Date Time Temp Pulse Resp B/P (MAP) Pulse Ox O2 Delivery O2 Flow Rate FiO2 01/04/18 20:26 70 01/04/18 19:48 Nasal Cannula 1.0 01/04/18 19:39 56 18 98 Nasal Cannula 1.0 01/04/18 19:22 36.7 53 18 134/75 (94) 99 Nasal Cannula 1.0 01/04/18 15:02 36.5 53 18 134/83 (100) 100 Room Air 01/04/18 14:14 70 18 99 Nasal Cannula 1.0 01/04/18 11:13 36.6 56 18 124/78 (93) 99 Nasal Cannula 2.0 01/04/18 08:03 100 Nasal Cannula 2.0 01/04/18 08:03 100 Nasal Cannula 2.0 01/04/18 07:15 36.4 55 18 145/86 (105) 100 Nasal Cannula 2.0 01/04/18 07:11 66 18 99 Nasal Cannula 2.0 01/04/18 05:20 36.6 16 123/78 (93) 99 Nasal Cannula 4.0 01/04/18 04:59 36.5 61 18 128/83 (98) 100 Nasal Cannula 2.0 01/04/18 02:01 64 18 98 Nasal Cannula 2.0 01/04/18 00:05 Nasal Cannula 2.0 01/03/18 23:05 36.4 59 19 122/79 (93) 98 Nasal Cannula 2.0 Physical Exam Comments: General Appearance: WD/WN, + pertinent finding (Obese, elderly male -does not appear to be in distress, no longer do you hear audible wheezing) Head: normocephalic Eyes: normal inspection ENT: normal ENT inspection, pharynx normal Neck: supple, thyroid normal Respiratory/Chest: chest non-tender, + pertinent finding (Very poor BL air movement), no wheezing Cardiovascular: regular rate, rhythm, no edema, no gallop, no JVD, normal peripheral pulses Abdomen/GI: normal bowel sounds, + abdominal tenderness in RUQ. Back: normal inspection, no CVA tenderness Extremities/Musculoskelatal: normal inspection, no calf tenderness, normal capillary refill Neurologic/Psych: army ranger II-XII nml as tested, no motor/sensory deficits, alert, normal reflexes Skin: normal color Laboratory Results Last 24 Hours Test 01/04/18 07:32 01/04/18 11:27 01/04/18 14:08 01/04/18 16:52 Bedside Glucose 174 mg/dl 198 mg/dl 199 mg/dl Amylase Level 57 U/L Lipase 65 U/L Test 01/04/18 20:18 Bedside Glucose 264 mg/dl Assessment and Plan 77 y/o M Hx COPD, lung CA - post RLL lobectomy, HTN, HPL, CVA, DM II, hypothyroidism, gout, ETOH cirrhosis, recurrent C diff. The pt presents from his MDs office where he became acutely SOB and diaphoretic. He was directed to the ER therefore. He states he has had a productive cough and upper quadrant abdominal discomfort since the prior evening. He has a times coughed forcefully leading him to retch and also to vomit once. He denies any CP, diarrhea or constipation. He has not had any fevers. Cough, SOB/wheezing, COPD The pt will be treated for COPD exacerbation. Owing to a productive cough, he received Levaquin in the ER. No longer having productive cough. CT scan of chest and x-rays were negative for infiltrates A sputum culture was requested. Currently requiring 02. Will continue round the clock nebs. Will have patient followup with thoracic surgery during hospital stay Patient airways remain tight, but no longer having wheezing. Nurse brought up concern over elevated D-DIMER, however, his well's criteria is low, at zero and had negative lower extremity Doppler. added long acting beta daron. will taper IV steroids and started azithromycin. Patient today reports improvement and clinically he does appear better. Will continue to monitor him. Chest pain: D/W cardio, will hold off cath as patient has been having chest pain intermittently and has had multiple caths in the past. Trop x3 negative, EKG no significant change. Abdominal pain - unclear etiology - may be related to strain form coughing or referred pain from a pulmonary process. - We will consider additional imaging if this does not resolve or worsens. -Patient is tender to palpation. -Patient has known cirrhosis. This may be cause of pain. DM II - placed on SS History of CVA, HTN, HPL - we will continue ASA, Coreg, Pravastatin Hypothyroidism - cont Synthroid Gout - cont Allopurinol Cirrhosis - cont daily lactulose Spent 35 minutes in management of patient.
[2018-01-05] VITALS (11 sets, daily range): BP systolic 121–166; BP diastolic 72–98; PULSE 51–64; TEMP 36.4–36.7; O2SAT 91–100
[2018-01-05] MEDS: HEPARIN SOD 5000 UNIT/0.5 ML CARP SQ SCH ×4 (00:09→23:45)
[2018-01-05] MEDS: ALBUT/IPRATROP 3MG/0.5MG NEB 3 ML VIAL INH SCH ×4 (01:46→19:38)
[2018-01-05] MEDS: METHYLPREDNISOLONE IV 60 MG in SYRINGE 0 ML IV SCH ×2 (04:23→11:59)
[2018-01-05] MEDS: LEVOTHYROXINE 50 MCG TAB PO SCH (06:23)
[2018-01-05] MEDS: INSULIN ASPART 100 UNITS/ML 3 ML PEN SC SCH ×4 (08:04→20:32)
[2018-01-05 08:44] LABS: HEMATOCRIT 38.4 % (42-52); HEMOGLOBIN 13.3 g/dL (14.0-18.0); MEAN CELL VOLUME 87.1 fL (80-100); MEAN CORPUSCULAR HEMOGLOBIN 30.2 pg (25-34); MEAN CORPUSCULAR HGB CONC 34.6 g/dl (32-36); RED CELL DISTRIBUTION WIDTH CV 15.1 % (11.5-14.5); RED CELL DISTRIBUTION WIDTH SD 48.1 fL (36.4-46.3); WHITE BLOOD COUNT 7.79 K/uL (4.8-10.8)
[2018-01-05 08:49] LABS: MEAN PLATELET VOLUME 10.1 fL (7.4-10.4); PLATELET COUNT 84 K/uL (130-400)
[2018-01-05] MEDS: SALMETEROL XINAFOATE 50MCG 28 BLISTER INH INH SCH ×2 (08:52→20:25)
[2018-01-05] MEDS: MAGNESIUM OXIDE 400 MG TAB PO SCH (08:53)
[2018-01-05] MEDS: ALLOPURINOL 300 MG TAB PO SCH (08:53)
[2018-01-05] MEDS: CLOPIDOGREL BISULFATE 75 MG TAB PO SCH (08:53)
[2018-01-05] MEDS: CARVEDILOL 3.125 MG TAB PO SCH ×2 (08:53→20:26)
[2018-01-05] MEDS: AMLODIPINE BESYLATE 5 MG TAB PO SCH (08:53)
[2018-01-05] MEDS: LACTULOSE SYRUP 20 GM/30 ML UDC PO SCH (08:53)
[2018-01-05] MEDS: FINASTERIDE 5 MG TAB PO SCH (08:54)
[2018-01-05] MEDS: GABAPENTIN 300 MG CAP PO SCH (08:54)
[2018-01-05] MEDS: CALCIUM POLYCARBOPHIL 1 TAB PO SCH (08:54)
[2018-01-05] MEDS: IBUPROFEN 600 MG TAB PO SCH ×3 (08:54→20:26)
[2018-01-05] MEDS: LOSARTAN POTASSIUM 50 MG TAB PO SCH (08:55)
[2018-01-05] MEDS: PAROXETINE 20 MG TAB PO SCH (08:55)
[2018-01-05 09:12] LABS: CALCIUM 10.1 mg/dl (8.5-10.1); CREATININE 1.3 mg/dl (0.60-1.40); POTASSIUM 4.4 mmol/L (3.5-5.1); TOTAL PROTEIN 6.5 gm/dl (6.4-8.2)
[2018-01-05] MEDS ORDERED: NURSING VERBAL MED ORDER ONE (16:30)
--- NOTE | 2018-01-05 19:55 | PULMONARY CONSULTATION ---
DATE OF CONSULTATION: 01/05/2018 TIME: 3:45 p.m. REPORT OF CONSULTATION: The patient was seen in room 288, bed 2. He is a 77-year-old male who was accompanied by his son. He was admitted to the hospital on 01/01/2018. The history was that he was over at Dr. Liang's office. He was acutely short of breath and diaphoretic and he sent him to the Emergency Room. The patient is not a good historian. Apparently, his symptoms began fairly suddenly. This is what the patient told me. However, his son states that he had been short of breath for about 2 weeks. The patient has a cough which he describes as frequent, although he did not cough much during the exam. He states he coughs up some white thick sputum. He has not coughed up any blood. He has had chest pains. Some of the pains are anterior, some are right lateral. He has had a cardiac evaluation during this hospital stay and they do not believe the chest pain is cardiac in nature. The patient's son indicates that it seems like his dad does well if he has oxygen, but he has been unable to qualify for oxygen. Pertinent history is that Mr. 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 It was a stage I tumor by report. The lesion was T2, but there were no nodes and no mets. The size of the lesion was 2 cm. Postoperatively, he had a right pleural effusion. He had a thoracentesis postop by Dr. Liang. The effusion has still been present, but has not changed. The patient does indicate that he feels about 80% better than he did when he came in. Review of records showed that he did have pulmonary functions in 04/2017 and they were normal at that time. The patient relates that he has come to the ER many times with shortness of breath. I did see that he was admitted from 08/18/2017 until 08/21/2017 with shortness of breath. He had a small pneumothorax at that time. They tried to get him home oxygen, but he did not meet criteria as per his insurance carrier at that time. An overnight pulse oximetry went down as low as 87%, but just for a few seconds. The patient indicates that he had a limited smoking history. He reportedly smoked between 1 and 2 packs per day for 17 years, but he quit in 1971, at age 31. He states he also quit drinking in 1970. He previously had been a heavy alcohol user. PAST SURGICAL HISTORY: 1. Right lower lobectomy. 2. Right thoracentesis. 3. Right and left inguinal hernia repair. 4. Cholecystectomy. 5. Partial colectomy. PAST MEDICAL HISTORY: 1. Hypertension. 2. Diabetes type 2. 3. Cerebellar CVA. 4. Hypothyroidism. 5. Gout. 6. Cirrhosis. 7. Recurring C. difficile. 8. Splenomegaly. 9. Thrombocytopenia. 10. BPH. 11. Fracture of the left arm earlier this year after a fall. ALLERGIES: MEPERIDINE, DYE, OXYCODONE, DOBUTAMINE, PERFLUTREN. FAMILY HISTORY: Mother , coronary artery disease. Father , age 59, CVA. MEDICATIONS AT HOME: 1. Allopurinol 300 mg daily. 2. Aspirin 81 mg daily. 3. Fiber-Tabs daily. 4. Carvedilol 0.5 b.i.d. 5. Vitamin D3 one tab daily. 6. B12 of 1000 mcg IM monthly. 7. Finasteride 5 mg daily. 8. Perforomist 1 vial q. 12 hours - the patient does not take regularly. 9. Gabapentin 300 mg daily. 10. Toujeo 20 units at bedtime and 45 units at bedtime. 11. Humalog. 12. Lactulose 2 tablespoonfuls daily. 13. Synthroid 50 mcg daily. 14. Losartan 50 mg daily. 15. Magnesium 400 mg daily. 16. Nitro p.r.n. 17. Pantoprazole 40 mg daily. 18. Paroxetine 10 mg daily. 19. Pravastatin 20 mg daily. 20. Tamsulosin 0.4 mg daily. REVIEW OF SYSTEMS: The patient does have significant constipation. He reportedly develops abdominal pain when he has not had a bowel movement. His energy level is low. Reportedly, he is short of breath just walking to his mailbox and back. The patient reports he had blood in his bowel movements about a month ago. He states that his gastroenterology doctor is aware and she has seen him recently. The remainder of the review of systems is negative. Ten systems reviewed. PHYSICAL EXAMINATION: GENERAL: The patient is a 77-year-old male who is cooperative, alert and oriented. He was in no distress. VITAL SIGNS: Weight is 113.2 kg. BMI is 38. Temperature was 36.4. Heart rate is 52 per minute. The rhythm is somewhat irregular. Blood pressure is 131/78. Oxygen saturation was 91% on 1 L. HEENT: Eye exam suggest prior cataract surgery bilaterally. Pupils react. Nares were clear. Mouth exam shows a Mallampati grade 3 pharynx. There was moderate crowding. There was an absence of teeth. NECK: Palpation of the neck reveals no lymph nodes. LUNGS: Lung koch revealed severely diminished breath sounds. I did have a hard time getting the patient to take deep breaths. No wheezing was heard. There was dullness to percussion at the right lung base. ABDOMEN: Soft. It is obese. Bowel sounds were normal. There was no tenderness to palpation or definite mass. EXTREMITIES: Showed no cyanosis or clubbing. He does have edema +2 on the left and +1 on the right. DIAGNOSTIC DATA: The patient had a CAT scan of the chest done on admission. This showed no evidence of pneumonia. There was evidence of a prior right lower lobectomy. There is a small nodule in the left apex area which is unchanged. There is a small right pleural effusion which is chronic. There are suspected prominent mediastinal lymph nodes which are unchanged from a prior study done 11/02/2017. Cirrhosis was noted. Doppler of both lower extremities was negative. EKG on admission showed a normal sinus rhythm. There was a left-axis deviation. There were mild nonspecific ST and T-wave changes seen. LABORATORY DATA: White count is 7.79. Hemoglobin 13.3. Platelets are 84,000. INR is 1.1 and PTT was 1.2. D-dimer was elevated at 1320. Urinalysis was normal. Electrolytes show sodium 138, potassium 4.4, chloride 105, bicarb 25. BUN was 38 with a creatinine of 1.3. Liver functions were normal. Albumin was 3. Globulin was 3.5. IMPRESSIONS: 1. Shortness of breath -- exact etiology not clear. 2. Lung CA -- status post right lower lobectomy. 3. Small right pleural effusion. 4. Small left upper lobe nodule. 5. Cirrhosis. 6. Questionable history of COPD. COMMENTS: The patient has had recurring episodes of shortness of breath with a clinical history being made of COPD. However, his pulmonary function studies preoperatively from 04/2017 were normal. The shortness of breath may be multifactorial. His oxygenation has been normal on a number of checks. His family has been anxious to give him oxygen. I believe it would be reasonable to once again check an overnight pulse ox on room air. He also should have a 2-step before discharge. I asked the patient if he had been checked for sleep apnea. He indicated just a few years ago. Review of records showed it actually was back in 2000. He did not have sleep apnea at that time. The patient has been on high-dose methylprednisolone. He currently is on 60 mg IV q. 8 hours. I would significantly cut the steroids back. He is on nebulizer treatments every 6 hours. He also has p.r.n. treatments which it appears he has had occasionally. At some point in time when the patient is at his baseline, a repeat of pulmonary function testing would be a good idea. Thank you very much for asking me to evaluate this patient. PATRICIA
[2018-01-05] MEDS: DOCUSATE SODIUM 100 MG CAP PO SCH (20:25)
[2018-01-05] MEDS: METHYLPREDNISOLONE IV 40 MG in SYRINGE 0 ML IV SCH (20:25)
[2018-01-05] MEDS: TAMSULOSIN HCL 0.4 MG CAP PO SCH (20:25)
[2018-01-05] MEDS: PRAVASTATIN SOD 10 MG TAB PO SCH (20:26)
[2018-01-05] MEDS: PANTOprazole SOD 40 MG TAB PO SCH (20:26)
[2018-01-05] MEDS: INSULIN GLARGINE SOLOSTAR 100 UNITS/ML 3 ML PEN SC SCH (20:33)
--- NOTE | 2018-01-05 20:37 | SURGERY PROGRESS NOTE ---
DATE: 01/05/2018 Mr. Bonner was seen today on 01/05/2018. Mr. Bonner is feeling better. He finally moved his bowels yesterday and his epigastric pain is improved. His amylase and lipase were normal. He has a normal white count. He is complaining of some point tenderness along his right chest, but he intermittently gets this. He states that he is feeling better. At this point, I would not offer him, in his right chest, as there is no evidence of an infection and I think an intervention for this would prove fruitless. PATRICIA
--- NOTE | 2018-01-05 22:47 | Progress Note ---
Subjective Date of Service: Jan 05, 2018. Subjective Pt evaluation today including: conversation w/ patient, physical exam 77 yo male reports no significant improvement today. He continues to report some SOB today. Problem List Medical Problems: (1) Abdominal pain Status: Acute (2) Abdominal pain of unknown etiology Status: Acute (3) Altered mental status Status: Acute (4) Anemia Status: Acute (5) Back pain Status: Acute (6) C. difficile colitis Status: Acute (7) C. difficile diarrhea Status: Acute (8) Chronic headache Status: Acute (9) Compression fracture Status: Acute (10) Confusion Status: Acute (11) COPD exacerbation Status: Acute (12) Dehydration Status: Acute (13) Diarrhea Status: Acute (14) Displaced transcondylar fracture of left humerus Status: Acute (15) Headache Status: Acute (16) Hydronephrosis with renal calculous obstruction Status: Acute (17) Low back strain Status: Acute (18) Palpitation Status: Acute (19) Pleural effusion Status: Acute (20) Pneumothorax on right Status: Acute (21) Respiratory failure Status: Acute (22) Right sided weakness Status: Acute (23) RUQ pain Status: Acute Review of Systems Constitutional: No fever Eyes: No worsening of vision ENT: No hearing loss Respiratory: + shortness of breath, + dyspnea on exertion Cardiac: + chest pain Abdomen: No pain Neurologic: No memory loss Psychiatric: No depression symptoms Heme: No abnormal bleeding/bruising Endo: + fatigue Skin: No rash All Other Systems: Reviewed and Negative Objective Vital Signs Date Time Temp Pulse Resp B/P (MAP) Pulse Ox O2 Delivery O2 Flow Rate FiO2 01/05/18 19:40 54 16 94 Nasal Cannula 1.0 01/05/18 19:16 36.7 55 20 144/82 (102) 99 Nasal Cannula 0.5 01/05/18 15:22 51 18 91 Nasal Cannula 1.0 01/05/18 15:12 36.4 51 18 131/78 (95) 100 Nasal Cannula 1.0 01/05/18 11:25 36.5 52 18 155/88 (110) 100 1.0 01/05/18 08:00 96 Nasal Cannula 1.0 01/05/18 07:27 63 18 96 Nasal Cannula 1.0 01/05/18 07:00 36.5 57 16 166/98 (120) 100 Nasal Cannula 1.0 01/05/18 04:18 36.4 55 18 142/87 (105) 98 Nasal Cannula 1.0 01/05/18 01:46 64 18 94 Nasal Cannula 1.0 01/05/18 00:00 Nasal Cannula 1.0 01/04/18 22:59 36.5 61 18 119/70 (86) 91 Nasal Cannula 1.0 Physical Exam Comments: General Appearance: WD/WN, + pertinent finding (Obese, elderly male -does not appear to be in distress, no longer do you hear audible wheezing) Head: normocephalic Eyes: normal inspection ENT: normal ENT inspection, pharynx normal Neck: supple, thyroid normal Respiratory/Chest: chest non-tender, + pertinent finding (Very poor BL air movement), no wheezing Cardiovascular: regular rate, rhythm, no edema, no gallop, no JVD, normal peripheral pulses Abdomen/GI: normal bowel sounds, + abdominal tenderness in RUQ has improved. Back: normal inspection, no CVA tenderness Extremities/Musculoskelatal: normal inspection, no calf tenderness, normal capillary refill Neurologic/Psych: booking prizer II-XII nml as tested, no motor/sensory deficits, alert, normal reflexes Skin: normal color Laboratory Results Last 24 Hours Test 01/05/18 07:29 01/05/18 08:23 01/05/18 11:15 01/05/18 16:30 Bedside Glucose 183 mg/dl 239 mg/dl 267 mg/dl White Blood Count 7.79 K/uL Red Blood Count 4.41 M/uL Hemoglobin 13.3 g/dL Hematocrit 38.4 % Mean Corpuscular Volume 87.1 fL Mean Corpuscular Hemoglobin 30.2 pg Mean Corpuscular Hemoglobin Concent 34.6 g/dl RDW Standard Deviation 48.1 fL RDW Coefficient of Variation 15.1 % Platelet Count 84 K/uL Mean Platelet Volume 10.1 fL Sodium Level 138 mmol/L Potassium Level 4.4 mmol/L Chloride Level 105 mmol/L Carbon Dioxide Level 25 mmol/L Anion Gap 8.0 mmol/L Blood Urea Nitrogen 38 mg/dl Creatinine 1.30 mg/dl Est Creatinine Clear Calc Drug Dose 59.0 ml/min Estimated GFR () 61.4 Estimated GFR (Non- 53.0 BUN/Creatinine Ratio 28.8 Random Glucose 185 mg/dl Calcium Level 10.1 mg/dl Total Bilirubin 0.7 mg/dl Aspartate Amino Transf (AST/SGOT) 17 U/L Alanine Aminotransferase (ALT/SGPT) 24 U/L Alkaline Phosphatase 62 U/L Total Protein 6.5 gm/dl Albumin 3.0 gm/dl Globulin 3.5 gm/dl Albumin/Globulin Ratio 0.8 Test 01/05/18 20:18 Bedside Glucose 267 mg/dl Assessment and Plan 77 y/o M Hx COPD, lung CA - post RLL lobectomy, HTN, HPL, CVA, DM II, hypothyroidism, gout, ETOH cirrhosis, recurrent C diff. The pt presents from his MDs office where he became acutely SOB and diaphoretic. He was directed to the ER therefore. He states he has had a productive cough and upper quadrant abdominal discomfort since the prior evening. He has a times coughed forcefully leading him to retch and also to vomit once. He denies any CP, diarrhea or constipation. He has not had any fevers. Cough, SOB/wheezing, COPD The pt will be treated for COPD exacerbation. Owing to a productive cough, he received Levaquin in the ER. No longer having productive cough. CT scan of chest and x-rays were negative for infiltrates A sputum culture was requested. Currently requiring 02. Will continue round the clock nebs. Will have patient followup with thoracic surgery during hospital stay Patient airways remain tight, but no longer having wheezing. Nurse brought up concern over elevated D-DIMER, however, his well's criteria is low, at zero and had negative lower extremity Doppler. added long acting beta daron. will taper IV steroids and started azithromycin. Patient today reports improvement and clinically he does appear better than when he first came in, but not much improvement from yesterday Will continue to monitor him. Chest pain: D/W cardio, will hold off cath as patient has been having chest pain intermittently and has had multiple caths in the past. Trop x3 negative, EKG no significant change. Abdominal pain - unclear etiology -improved today. - may be related to strain form coughing or referred pain from a pulmonary process. - We will consider additional imaging if this does not resolve or worsens. -Patient is tender to palpation. -Patient has known cirrhosis. This may be cause of pain. DM II - placed on SS History of CVA, HTN, HPL - we will continue ASA, Coreg, Pravastatin Hypothyroidism - cont Synthroid Gout - cont Allopurinol Cirrhosis - cont daily lactulose
[2018-01-06] VITALS (10 sets, daily range): BP systolic 120–152; BP diastolic 61–81; PULSE 54–64; TEMP 36.4–37; O2SAT 93–99
[2018-01-06] MEDS: ALBUT/IPRATROP 3MG/0.5MG NEB 3 ML VIAL INH SCH ×4 (01:53→18:54)
[2018-01-06] MEDS: LEVOTHYROXINE 50 MCG TAB PO SCH (06:07)
[2018-01-06] MEDS: LACTULOSE SYRUP 10 GM/15 ML BTL 473 ML PO SCH (06:20)
[2018-01-06] MEDS: INSULIN ASPART 100 UNITS/ML 3 ML PEN SC SCH ×4 (08:27→22:06)
[2018-01-06] MEDS: HEPARIN SOD 5000 UNIT/0.5 ML CARP SQ SCH ×3 (08:28→23:47)
[2018-01-06] MEDS: METHYLPREDNISOLONE IV 40 MG in SYRINGE 0 ML IV SCH (08:30)
[2018-01-06] MEDS: SALMETEROL XINAFOATE 50MCG 28 BLISTER INH INH SCH ×2 (08:30→21:57)
[2018-01-06] MEDS: GABAPENTIN 300 MG CAP PO SCH (08:30)
[2018-01-06] MEDS: CARVEDILOL 3.125 MG TAB PO SCH ×2 (08:30→21:00)
[2018-01-06] MEDS: FINASTERIDE 5 MG TAB PO SCH (08:30)
[2018-01-06] MEDS: ALLOPURINOL 300 MG TAB PO SCH (08:30)
[2018-01-06] MEDS: AMLODIPINE BESYLATE 5 MG TAB PO SCH (08:31)
[2018-01-06] MEDS: DOCUSATE SODIUM 100 MG CAP PO SCH ×2 (08:31→21:58)
[2018-01-06] MEDS: IBUPROFEN 600 MG TAB PO SCH ×3 (08:31→21:58)
[2018-01-06] MEDS: LOSARTAN POTASSIUM 50 MG TAB PO SCH (08:31)
[2018-01-06] MEDS: SENNA 8.6 MG TAB PO SCH (08:31)
[2018-01-06] MEDS: MAGNESIUM OXIDE 400 MG TAB PO SCH (08:32)
[2018-01-06] MEDS: CALCIUM POLYCARBOPHIL 1 TAB PO SCH (08:32)
[2018-01-06] MEDS: CLOPIDOGREL BISULFATE 75 MG TAB PO SCH (08:32)
[2018-01-06] MEDS: PAROXETINE 20 MG TAB PO SCH (08:32)
--- NOTE | 2018-01-06 10:33 | PULMONARY PROGRESS NOTE ---
DATE: 01/06/2018 TIME: 9:40 a.m. SUBJECTIVE: The patient states he continues to feel short of breath with exertion. He is fairly comfortable at rest. He slept well last night. He did express frustration over being in the hospital frequently. I asked him if he feels overall weak and he said yes. OBJECTIVE: GENERAL: The patient was comfortable at rest. VITAL SIGNS: Temperature is 36.6. Heart rate is 57 per minute. Rhythm was somewhat irregular. Blood pressure 124/81. LUNGS: Lung koch revealed decreased breath sounds, but they were clear. The patient does appear to have trouble taking a deep breath in. Despite this, the saturation is 99% on room air. The way he breathes perhaps consideration could be given to ruling out underlying neurologic problems. EXTREMITIES: Showed +2 edema on the left and +1 on the right. The patient had an overnight pulse oximetry study done. This was normal. There were no significant oxygen desaturations and this would not qualify him for oxygen at home. The minimum saturation was 88% and it appears to be artifact. It was just a couple of seconds. Most of the time, his saturations were in the mid to upper 90s. ASSESSMENT: 1. Shortness of breath, undetermined etiology. 2. Lung cancer - status post right lower lobectomy. 3. Small right pleural effusion. 4. Left upper lobe nodule. 5. Cirrhosis. 6. Rule out neuromuscular weakness. COMMENTS AND RECOMMENDATIONS: The patient is difficult to assess from a neurologic perspective. He has had a prior stroke. He indicates he does not see a neurologist. Perhaps a neuro evaluation to rule out muscle weakness such as myasthenia could be considered. A neurologic disorder such as myasthenia could result in the shortness of breath and muscle weakness the patient describes. I would change the methylprednisolone to prednisone.
--- NOTE | 2018-01-06 10:37 | SURGERY PROGRESS NOTE ---
DATE: 01/06/2018 Mr. Bonner was seen today on 01/06/2018. He is feeling better and would like to go home. He is on room air now. He did ambulate. He moved his bowels. Today he is not complaining of right chest pain, but complaining of more epigastric pain again. It is very mild. His abdomen is soft and he has very mild tenderness with good bowel sounds. All in all, I am pleased with Mr. Bonner' progress. I still do not have a good explanation for why he presented as he did; however, he sounds much better. We will see him back in the office in 6 months for followup. His CAT scan showed no evidence of recurrent disease.
[2018-01-06] MEDS: PANTOprazole SOD 40 MG TAB PO SCH (21:59)
[2018-01-06] MEDS: PRAVASTATIN SOD 10 MG TAB PO SCH (21:59)
[2018-01-06] MEDS: TAMSULOSIN HCL 0.4 MG CAP PO SCH (22:00)
[2018-01-06] MEDS: INSULIN GLARGINE SOLOSTAR 100 UNITS/ML 3 ML PEN SC SCH (22:07)
--- NOTE | 2018-01-06 22:58 | Progress Note ---
Subjective Date of Service: Jan 06, 2018. Subjective Pt evaluation today including: conversation w/ patient, physical exam 77 yo male reports breathing better today. He still feels relatively SOB. Problem List Medical Problems: (1) Abdominal pain Status: Acute (2) Abdominal pain of unknown etiology Status: Acute (3) Altered mental status Status: Acute (4) Anemia Status: Acute (5) Back pain Status: Acute (6) C. difficile colitis Status: Acute (7) C. difficile diarrhea Status: Acute (8) Chronic headache Status: Acute (9) Compression fracture Status: Acute (10) Confusion Status: Acute (11) COPD exacerbation Status: Acute (12) Dehydration Status: Acute (13) Diarrhea Status: Acute (14) Displaced transcondylar fracture of left humerus Status: Acute (15) Headache Status: Acute (16) Hydronephrosis with renal calculous obstruction Status: Acute (17) Low back strain Status: Acute (18) Palpitation Status: Acute (19) Pleural effusion Status: Acute (20) Pneumothorax on right Status: Acute (21) Respiratory failure Status: Acute (22) Right sided weakness Status: Acute (23) RUQ pain Status: Acute Review of Systems Constitutional: No fever Eyes: No worsening of vision ENT: No hearing loss Respiratory: + shortness of breath, + dyspnea on exertion Cardiac: + chest pain Abdomen: No pain Neurologic: No memory loss Psychiatric: No depression symptoms Heme: No abnormal bleeding/bruising Endo: + fatigue Skin: No rash All Other Systems: Reviewed and Negative Objective Vital Signs Date Time Temp Pulse Resp B/P (MAP) Pulse Ox O2 Delivery O2 Flow Rate FiO2 01/06/18 21:50 58 131/61 (84) 01/06/18 20:00 Room Air 01/06/18 19:38 36.6 55 20 132/79 (96) 93 Room Air 01/06/18 18:55 54 16 98 Room Air 01/06/18 16:00 Room Air 01/06/18 15:54 37.0 63 20 152/81 (104) 97 Room Air 01/06/18 14:24 60 16 98 Room Air 01/06/18 11:31 36.5 54 20 120/81 (94) 98 Room Air 01/06/18 08:00 Room Air 01/06/18 07:42 36.6 57 18 124/81 (95) 99 Room Air 01/06/18 07:16 56 16 98 Room Air 01/06/18 06:01 64 18 97 Room Air 01/06/18 04:07 36.4 54 16 132/78 (96) 99 Room Air 01/06/18 00:15 Room Air 01/05/18 23:45 36.5 52 16 121/72 (88) 96 Room Air Physical Exam Comments: General Appearance: WD/WN, + pertinent finding (Obese, elderly male -does not appear to be in distress, no longer do you hear audible wheezing) Head: normocephalic Eyes: normal inspection ENT: normal ENT inspection, pharynx normal Neck: supple, thyroid normal Respiratory/Chest: chest non-tender, + pertinent finding (Very poor BL air movement), no wheezing Cardiovascular: regular rate, rhythm, no edema, no gallop, no JVD, normal peripheral pulses Abdomen/GI: normal bowel sounds, + abdominal tenderness in RUQ has improved. 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 The pt presents from his MDs office where he became acutely SOB and diaphoretic. He was directed to the ER therefore. He states he has had a productive cough and upper quadrant abdominal discomfort since the prior evening. He has a times coughed forcefully leading him to retch and also to vomit once. He denies any CP, diarrhea or constipation. He has not had any fevers. Cough, SOB/wheezing, COPD The pt will be treated for COPD exacerbation. Owing to a productive cough, he received Levaquin in the ER. No longer having productive cough. CT scan of chest and x-rays were negative for infiltrates A sputum culture was requested. Currently requiring 02. Will continue round the clock nebs. Will have patient followup with thoracic surgery during hospital stay Patient airways remain tight, but no longer having wheezing. Nurse brought up concern over elevated D-DIMER, however, his well's criteria is low, at zero and had negative lower extremity Doppler. added long acting beta daron. will taper IV steroids to PO steroids Continue azithromycin Patient today reports improvement and clinically he does appear better. Pulmonary states possible nueromuscular disorder, may consider outpatient neuro appointment. Chest pain: D/W cardio, will hold off cath as patient has been having chest pain intermittently and has had multiple caths in the past. Trop x3 negative, EKG no significant change. Abdominal pain - unclear etiology - may be related to strain form coughing or referred pain from a pulmonary process. - We will consider additional imaging if this does not resolve or worsens. -Patient is tender to palpation. -Patient has known cirrhosis. This may be cause of pain. DM II - placed on SS History of CVA, HTN, HPL - we will continue ASA, Coreg, Pravastatin Hypothyroidism - cont Synthroid Gout - cont Allopurinol Cirrhosis - cont daily lactulose \
[2018-01-07] VITALS (8 sets, daily range): BP systolic 118–123; BP diastolic 70–78; PULSE 52–61; TEMP 36.4–36.7; O2SAT 95–98
[2018-01-07] MEDS: ALBUT/IPRATROP 3MG/0.5MG NEB 3 ML VIAL INH SCH ×3 (01:59→15:00)
[2018-01-07] MEDS: LEVOTHYROXINE 50 MCG TAB PO SCH (06:08)
[2018-01-07] MEDS: LACTULOSE SYRUP 10 GM/15 ML BTL 473 ML PO SCH (06:08)
[2018-01-07] MEDS: INSULIN ASPART 100 UNITS/ML 3 ML PEN SC SCH ×2 (06:30→11:00)
[2018-01-07] MEDS: HEPARIN SOD 5000 UNIT/0.5 ML CARP SQ SCH (08:00)
[2018-01-07] MEDS: DOCUSATE SODIUM 100 MG CAP PO SCH (09:00)
[2018-01-07] MEDS: AMLODIPINE BESYLATE 5 MG TAB PO SCH (09:02)
[2018-01-07] MEDS: CLOPIDOGREL BISULFATE 75 MG TAB PO SCH (09:02)
[2018-01-07] MEDS: IBUPROFEN 600 MG TAB PO SCH ×2 (09:02→14:00)
[2018-01-07] MEDS: ALLOPURINOL 300 MG TAB PO SCH (09:02)
[2018-01-07] MEDS: SALMETEROL XINAFOATE 50MCG 28 BLISTER INH INH SCH (09:03)
[2018-01-07] MEDS: MAGNESIUM OXIDE 400 MG TAB PO SCH (09:04)
[2018-01-07] MEDS: GABAPENTIN 300 MG CAP PO SCH (09:04)
[2018-01-07] MEDS: FINASTERIDE 5 MG TAB PO SCH (09:04)
[2018-01-07] MEDS: CALCIUM POLYCARBOPHIL 1 TAB PO SCH (09:04)
[2018-01-07] MEDS: LOSARTAN POTASSIUM 50 MG TAB PO SCH (09:04)
[2018-01-07] MEDS: PAROXETINE 20 MG TAB PO SCH (09:05)
[2018-01-07] MEDS: SENNA 8.6 MG TAB PO SCH (09:05)
[2018-01-07] MEDS: CARVEDILOL 3.125 MG TAB PO SCH (09:05)
[2018-01-07] MEDS ORDERED: PLV75 PO (13:04)
[2018-01-07] MEDS ORDERED: NRV5 PO (13:04)
--- NOTE | 2018-01-07 13:07 | Discharge Instructions ---
Discharge Instructions Date of Service Jan 07, 2018. Admission Reason for Admission: Shortness Of Breath Discharge Discharge Diagnosis / Problem: SOB from [facility] COPD Discharge Goals Goal(s): Decrease discomfort, Improve function Activity Recommendations Activity Limitations: resume your previous activity . Instructions / Follow-Up Instructions / Follow-Up Followup with PCP, Cardiology in 1-2 weeks Followup with NEUROLOGY IN 2-4 WEEKS Current Hospital Diet Patient's current hospital diet: AHA Diet (Heart Healthy), Diabetes Type 2 Diet Discharge Diet Recommended Diet: AHA Diet (Heart Healthy), Diabetes Type 2 Diet Pending Studies Studies pending at discharge: no Medical Emergencies . Who to Call and When: Medical Emergencies: If at any time you feel your situation is an emergency, please call 911 immediately. . Non-Emergent Contact Non-Emergency issues call your: Primary Care Provider Call Non-Emergent contact if: you have any medication questions . . "Provider Documentation" section prepared by Ray Lovett. .
--- NOTE | 2018-01-14 16:28 | Discharge Summary ---
Discharge Summary Date of Service Jan 07, 2018. Discharge Summary Admission Date: Jan 01, 2018 at 14:13 Discharge Date: Jan 07, 2018 Discharge Disposition: Home with services Principal Diagnosis: SOB likely multifactorial/ COPD exacerbation/ cirrhosis/ post RLL Lobectomy Immunizations: Have You Had Influenza Vaccine: Unknown History of Tetanus Vaccine?: Unknown History of Pneumococcal: Unknown Consultations: Cardio Input A 77-year-old male with history of hypertension, chronic obstructive lung disease, prior lung lobectomy, past history of ongoing and longstanding chronic chest pain with extensive evaluations including multiple diagnostic cardiac catheterization and stress test. Cardiac enzymes and EKGs do not suggest myocardial ischemia despite ongoing chest pain for greater than 24 hours. I suspect there is multifactorial contributions including chronic complaints. He is relatively bradycardic at rest. RECOMMENDATIONS: We will optimize medical therapies, specifically we will reduce carvedilol to 6.25 mg twice per day. This represents an increase from outpatient recommend, resume aspirin, previously held, per patient. Amlodipine will be added at 5 mg per day for blood pressure control in addition to usual medication, losartan, single dose IV furosemide will be administered today as exam suggests mild volume overload. We will follow as clinical course progresses. Past evaluation of cardiac function includes stress nuclear imaging in October of 2016 with normal LV systolic function, with normal perfusion at that time as well. Echocardiogram in 2016 with normal biventricular function. Discussed findings and plans with patient, he is agreeable. Medication Reconciliation New Medications: Amlodipine Besylate (Amlodipine Besylate) 5 Mg Tab 5 MG PO QAM for 30 Days, #30 TAB Clopidogrel Bisulfate (Clopidogrel) 75 Mg Tab 75 MG PO QAM for 30 Days, #30 TAB Continued Medications: Allopurinol (Zyloprim) 300 Mg Tab 300 MG PO QAM, TAB Aspirin (Aspirin Chewable) 81 Mg Chew 81 MG PO QAM Calcium Polycarbophil (Fiber Tabs) 625 Mg Tab 1 TAB PO QAM Carvedilol (Coreg) 25 Mg Tab 0.5 TAB PO BID, TAB Cholecalciferol (Vitamin D3) 2,000 Unit Tab 1 TAB PO QPM, TAB Cyanocobalamin (Cyanocobalamin) 1,000 Mcg/Ml Inj 1 ML INJ MONTHLY Finasteride (Proscar) 5 Mg Tab 5 MG PO DAILY, TAB Formoterol Fumarate (Perforomist) 20 Mcg/2 Ml Neb 1 VIAL NEB Q12 Gabapentin (Gabapentin) 300 Mg Cap 1 CAP PO DAILY Glucostix Blood Test Strips (Onetouch Ultra Blue) 1 Ea Strp 1 BID Insulin Glargine (Toujeo Solostar) 300 Unit/Ml Inj 20 UNITS SC HS Insulin Glargine (Toujeo Solostar) 300 Unit/Ml Inj 45 UNITS SL HS Insulin Lispro (Human) (Humalog) 100 Unit/Ml Inj Lactulose (Chronulac) 10 Gm/15 Ml Syrp 2 TBS PO QAM Levothyroxine Sodium (Synthroid) 50 Mcg Tab 50 MCG PO QAM 0600 Losartan Potassium (Losartan Potassium) 50 Mg Tab Magnesium Oxide (Mag-Ox) 400 Mg Tab 400 MG PO DAILY, TAB Nitroglycerin (Nitrostat) 0.4 Mg Tab 0.4 MG UT UD for chest pain, BTL Pantoprazole (Protonix) 40 Mg Tab 40 MG PO HS, TAB Paroxetine Hcl (Paxil) 10 Mg Tab 10 MG PO QAM, TAB Pravastatin (Pravachol ) 20 Mg Tab 10 MG PO, TAB Tamsulosin Hcl (Flomax) 0.4 Mg Cap 0.4 MG PO QPM, CAP Discharge Exam Review of Systems Constitutional: No fever Eyes: No worsening of vision ENT: No hearing loss Respiratory: + shortness of breath, + dyspnea on exertion (improved) Cardiac: + chest pain Abdomen: No pain Neurologic: No memory loss Psychiatric: No depression symptoms Heme: No abnormal bleeding/bruising Endo: + fatigue Skin: No rash All Other Systems: Reviewed and Negative Physical Exam Comments: General Appearance: WD/WN, + pertinent finding (Obese, elderly male -does not appear to be in distress, no longer do you hear audible wheezing) Head: normocephalic Eyes: normal inspection ENT: normal ENT inspection, pharynx normal Neck: supple, thyroid normal Respiratory/Chest: chest non-tender, + pertinent finding (Very poor BL air movement), no wheezing Cardiovascular: regular rate, rhythm, no edema, no gallop, no JVD, normal peripheral pulses Abdomen/GI: normal bowel sounds, + abdominal tenderness in RUQ has improved. 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 The pt presents from his MDs office where he became acutely SOB and diaphoretic. He was directed to the ER therefore. He states he has had a productive cough and upper quadrant abdominal discomfort since the prior evening. He has a times coughed forcefully leading him to retch and also to vomit once. He denies any CP, diarrhea or constipation. He has not had any fevers. Cough, SOB/wheezing, COPD The pt will be treated for COPD exacerbation. Owing to a productive cough, he received Levaquin in the ER. No longer having productive cough. CT scan of chest and x-rays were negative for infiltrates A sputum culture was requested. Initially requiring 02. Will continue round the clock nebs. Will have patient followup with thoracic surgery during hospital stay They evaluated patient and it was deemed they did not need to perform thoracocenthesis as fluid was small. Nurse brought up concern over elevated D-DIMER, however, his well's criteria is low, at zero and had negative lower extremity Doppler. Resumed long acting beta daron. tapered patient to po steroids Completed course of azithromycin. Due to short course, no need to taper with steroids Patient over past 2 days reports improvement and clinically he does appear better. Pulmonary states possible neuromuscular disorder can be part of differential,, may consider outpatient neuro appointment. Patient did not qualify for home oxygen Chest pain: D/W cardio, will hold off cath as patient has been having chest pain intermittently and has had multiple caths in the past. Trop x3 negative, EKG no significant change. Abdominal pain - unclear etiology - may be related to strain form coughing or referred pain from a pulmonary process. - We will consider additional imaging if this does not resolve or worsens. -Currently not having pain. -Patient has known cirrhosis. This may be cause of pain. DM II - placed on SS History of CVA, HTN, HPL - we will continue ASA, Coreg, Pravastatin Hypothyroidism - cont Synthroid Gout - cont Allopurinol Cirrhosis - cont daily lactulose \ Total Time Spent: Greater than 30 minutes This includes examination of the patient, discharge planning, medication reconciliation, and communication with other providers. Discharge Instructions Please refer to the electronic Patient Visit Report (Discharge Instructions) for additional information. Follow-Up Followup with PCP, Cardiology in 1-2 weeks Followup with NEUROLOGY IN 2-4 WEEKS Additional Copies To Domo Alanis D.O.
== END 2018-01-07 15:30 | disposition home health service (06) | DRG 192 ==
LOC: EDBD 09:42 → C.EDA 09:43 → ENRESERV 13:11 → C.MED 14:13
PROVIDERS: ADMIT Internal Medicine; ATTEND Internal Medicine
DX: J44.1 Chronic obstructive pulmonary disease with (acute) exacerbation (principal); K70.30 Alcoholic cirrhosis of liver without ascites; Z85.118 Personal history of other malignant neoplasm of bronchus and lung; Z90.2 Acquired absence of lung [part of]; Z86.73 Personal history of transient ischemic attack (TIA), and cerebral infarction without residual deficits; M10.9 Gout, unspecified; Z82.49 Family history of ischemic heart disease and other diseases of the circulatory system; Z81.2 Family history of tobacco abuse and dependence; Z88.5 Allergy status to narcotic agent; Z88.8 Allergy status to other drugs, medicaments and biological substances; F10.11 Alcohol abuse, in remission; Z87.891 Personal history of nicotine dependence; R10.9 Unspecified abdominal pain; E11.9 Type 2 diabetes mellitus without complications; E78.5 Hyperlipidemia, unspecified; R00.1 Bradycardia, unspecified; I11.9 Hypertensive heart disease without heart failure; K21.9 Gastro-esophageal reflux disease without esophagitis; K22.70 Barrett's esophagus without dysplasia; R07.89 Other chest pain

== ENCOUNTER → 2018-01-01 | Outpatient (CLI) | payer OTHER, MEDICARE ==
[~2018-01-01] MED LIST changes: +ALL300; -AMOX875T PO; +CYNI1000 INJ; +CZR50; +FINA5TAB PO; +FORM1NEB NEB; +GLUC-221; +INSU1.2I SL; +INSU100I; -LACT10SO17 PO; +LACT10SO3 PO; +MAGN400T6 PO; +NRV5 PO; +PLV75 PO; +PRAV20TA PO; +TRAM-10 PO; -VITAMIN B12 INJ
--- NOTE | 2018-01-01 08:25 | DIAGNOSTIC IMAGING REPORT ---
CHEST 2 VIEWS ROUTINE CLINICAL HISTORY: R06.02 SOB (shortness of breath) on exertion dyspnea COMPARISON STUDY: 09/04/2017 FINDINGS: Improved appearance right base. Small residual right pleural effusion. Improved visibility right hemidiaphragm. Lungs otherwise are clear. Chronic parenchymal prominence left base. IMPRESSION: Small chronic right pleural effusion improved from the prior study. Otherwise unremarkable exam. The above report was generated using voice recognition software. It may contain grammatical, syntax or spelling errors. Electronically signed by: Yayo Reyes M.D. 01/01/2018 8:24 AM Dictated Date/Time: 01/01/2018 8:21 AM
== END | disposition home or self-care (01) ==
LOC: C.RAD 08:00
PROVIDERS: ATTEND Surgery
DX: J90 Pleural effusion, not elsewhere classified (principal)

== ENCOUNTER 2018-06-04 11:01 | Inpatient (IN) ==
[2018-06-04 12:35] LABS: Basophils # (auto) 0.03 K/uL (0-0.2); Basophils % (auto) 0.4 %; Eosinophils # (auto) 0.25 K/uL (0-0.5); Eosinophils % (auto) 3.4 %; Hematocrit (blood only) 30.3 % (42-52); Hemoglobin 9.8 g/dL (14.0-18.0); Immature Granulocytes # (auto) 0.02 K/uL (0.00-0.02); Immature Granulocytes % (auto) 0.3 %; Lymphocytes # (auto) 1.09 K/uL (1.2-3.4); Mean Corpuscular Hgb Conc 32.3 g/dL (32-36); Mean Corpuscular Volume 80.2 fL (80-100); Mean Platelet Volume 8.3 fL (7.4-10.4); Monocytes # (auto) 0.55 K/uL (0.11-0.59); Monocytes % (auto) 7.5 %; Neutrophils # (auto) 5.35 K/uL (1.4-6.5); Neutrophils % (auto) 73.4 %; Platelet Count 134 K/uL (130-400); RDW Coefficient of Variation 17.4 % (11.5-14.5); RDW Standard Deviation 50.8 fL (36.4-46.3); Red Blood Count 3.78 M/uL (4.7-6.1); White Blood Count 7.29 K/uL (4.8-10.8)
[2018-06-04 12:51] LABS: Albumin Level 2.2 gm/dl (3.4-5.0); BUN Creatinine Ratio 17.8 (10-20); Calcium 9.7 mg/dl (8.5-10.1); Creatinine Clr Calc Pharmacy 75.8 ml/min; Est GFR (African American) 88.6; Est GFR (Non-African American) 76.5; Magnesium 1.5 mg/dl (1.8-2.4); Potassium 3.5 mmol/L (3.5-5.1)
[2018-06-04 12:53] LABS: INR 1.2 (0.9-1.1); Prothrombin Time 12.1 Seconds (9.0-12.0)
[2018-06-04 12:54] LABS: Albumin Globulin Ratio 0.5 (0.9-2); Bilirubin,Total 1.3 mg/dl (0.2-1); Globulin 4.1 gm/dl (2.5-4.0); Total Protein 6.3 gm/dl (6.4-8.2)
[2018-06-04 20:31] LABS: Appearance Urine Cloudy (Clear); Bilirubin Urine Negative (Negative); Epithelial Cell Urine Auto 0-5 /lpf (0-5); Glucose Urine UA Negative (Negative); Ketones Urine Negative (Negative); Leukocyte Esterase Urine Negative (Negative); Nitrite Urine Negative (Negative); Protein Urine Negative (Negative); Specific Gravity Urine 1.021 (1.000-1.030); Urobilinogen Urine Negative (Negative)
[2018-06-04 20:33] LABS: Color Urine Amber
[2018-06-04 20:41] LABS: Bacteria Urine Automated 1+ (Negative); Calcium Oxalate Crystals Urine Present (None Prsent)
[2018-06-05 05:57] LABS: Hematocrit (blood only) 28.8 % (42-52); Hemoglobin 9.3 g/dL (14.0-18.0); Mean Corpuscular Hgb Conc 32.3 g/dL (32-36); Mean Corpuscular Volume 80.4 fL (80-100); Mean Platelet Volume 8.3 fL (7.4-10.4); Platelet Count 123 K/uL (130-400); RDW Coefficient of Variation 17.3 % (11.5-14.5); RDW Standard Deviation 51.1 fL (36.4-46.3); Red Blood Count 3.58 M/uL (4.7-6.1); White Blood Count 6.23 K/uL (4.8-10.8)
[2018-06-05 06:26] LABS: Albumin Level 1.9 gm/dl (3.4-5.0); BUN Creatinine Ratio 17.2 (10-20); Calcium 8.9 mg/dl (8.5-10.1); Est GFR (African American) 94.5; Est GFR (Non-African American) 81.6; Potassium 3.5 mmol/L (3.5-5.1)
[2018-06-05 06:29] LABS: Albumin Globulin Ratio 0.5 (0.9-2); Globulin 3.6 gm/dl (2.5-4.0); Total Protein 5.5 gm/dl (6.4-8.2)
[2018-06-07 05:59] LABS: Hematocrit (blood only) 27.9 % (42-52); Hemoglobin 9.2 g/dL (14.0-18.0); Immature Granulocytes # (auto) 0.01 K/uL (0.00-0.02); Immature Granulocytes % (auto) 0.2 %; Lymphocytes # (auto) 0.54 K/uL (1.2-3.4); Lymphocytes % (auto) 11.6 %; Mean Platelet Volume 8.7 fL (7.4-10.4); Monocytes # (auto) 0.16 K/uL (0.11-0.59); Monocytes % (auto) 3.4 %; Neutrophils # (auto) 3.95 K/uL (1.4-6.5); Neutrophils % (auto) 84.8 %; Platelet Count 107 K/uL (130-400); Red Blood Count 3.53 M/uL (4.7-6.1); White Blood Count 4.66 K/uL (4.8-10.8)
[2018-06-07 06:41] LABS: BUN Creatinine Ratio 23.2 (10-20); Calcium 9.4 mg/dl (8.5-10.1); Creatinine Clr Calc Pharmacy 71.4 ml/min; Est GFR (African American) 82.4; Est GFR (Non-African American) 71.1; Magnesium 1.6 mg/dl (1.8-2.4); Phosphorus 2.8 mg/dl (2.5-4.9); Potassium 4.2 mmol/L (3.5-5.1)
[2018-06-08 06:15] LABS: Basophils # (auto) 0.01 K/uL (0-0.2); Basophils % (auto) 0.1 %; Hematocrit (blood only) 26.8 % (42-52); Hemoglobin 8.6 g/dL (14.0-18.0); Immature Granulocytes # (auto) 0.02 K/uL (0.00-0.02); Immature Granulocytes % (auto) 0.3 %; Lymphocytes # (auto) 0.66 K/uL (1.2-3.4); Lymphocytes % (auto) 9.6 %; Mean Corpuscular Hgb Conc 32.1 g/dL (32-36); Mean Corpuscular Volume 79.3 fL (80-100); Mean Platelet Volume 8.5 fL (7.4-10.4); Monocytes # (auto) 0.52 K/uL (0.11-0.59); Monocytes % (auto) 7.6 %; Neutrophils # (auto) 5.65 K/uL (1.4-6.5); Neutrophils % (auto) 82.4 %; Platelet Count 122 K/uL (130-400); RDW Coefficient of Variation 16.8 % (11.5-14.5); RDW Standard Deviation 48.7 fL (36.4-46.3); Red Blood Count 3.38 M/uL (4.7-6.1); White Blood Count 6.86 K/uL (4.8-10.8)
[2018-06-08 06:46] LABS: Echinocytes 1+
[2018-06-08 06:52] LABS: Calcium 9.9 mg/dl (8.5-10.1); Creatinine Clr Calc Pharmacy 71.8 ml/min; Est GFR (African American) 82.4; Est GFR (Non-African American) 71.1; Magnesium 1.9 mg/dl (1.8-2.4); Phosphorus 2.5 mg/dl (2.5-4.9); Potassium 4.2 mmol/L (3.5-5.1)
[2018-06-09 05:50] LABS: Basophils # (auto) 0.01 K/uL (0-0.2); Basophils % (auto) 0.2 %; Hematocrit (blood only) 27.9 % (42-52); Hemoglobin 8.9 g/dL (14.0-18.0); Immature Granulocytes # (auto) 0.05 K/uL (0.00-0.02); Lymphocytes # (auto) 0.52 K/uL (1.2-3.4); Lymphocytes % (auto) 10.2 %; Mean Corpuscular Hgb Conc 31.9 g/dL (32-36); Mean Corpuscular Volume 80.9 fL (80-100); Mean Platelet Volume 8.8 fL (7.4-10.4); Monocytes # (auto) 0.24 K/uL (0.11-0.59); Monocytes % (auto) 4.7 %; Neutrophils # (auto) 4.27 K/uL (1.4-6.5); Neutrophils % (auto) 83.9 %; Platelet Count 116 K/uL (130-400); RDW Coefficient of Variation 17.3 % (11.5-14.5); RDW Standard Deviation 50.7 fL (36.4-46.3); Red Blood Count 3.45 M/uL (4.7-6.1); White Blood Count 5.09 K/uL (4.8-10.8)
[2018-06-09 06:18] LABS: Calcium 9.7 mg/dl (8.5-10.1); Creatinine Clr Calc Pharmacy 64.2 ml/min; Est GFR (African American) 71.2; Est GFR (Non-African American) 61.5; Potassium 4.7 mmol/L (3.5-5.1)
[2018-06-09 06:23] LABS: Phosphorus 3.1 mg/dl (2.5-4.9)
[2018-06-09 06:25] LABS: Ovalocytes 1+
[2018-06-10 06:08] LABS: Hematocrit (blood only) 26.6 % (42-52); Hemoglobin 8.6 g/dL (14.0-18.0); Immature Granulocytes # (auto) 0.06 K/uL (0.00-0.02); Immature Granulocytes % (auto) 1.1 %; Lymphocytes # (auto) 0.57 K/uL (1.2-3.4); Lymphocytes % (auto) 10.3 %; Mean Corpuscular Hgb Conc 32.3 g/dL (32-36); Mean Corpuscular Volume 80.9 fL (80-100); Mean Platelet Volume 9.5 fL (7.4-10.4); Monocytes # (auto) 0.34 K/uL (0.11-0.59); Monocytes % (auto) 6.1 %; Neutrophils # (auto) 4.58 K/uL (1.4-6.5); Neutrophils % (auto) 82.5 %; Platelet Count 116 K/uL (130-400); RDW Coefficient of Variation 17.3 % (11.5-14.5); RDW Standard Deviation 51.2 fL (36.4-46.3); Red Blood Count 3.29 M/uL (4.7-6.1); White Blood Count 5.55 K/uL (4.8-10.8)
[2018-06-10 06:26] LABS: Ovalocytes 1+
[2018-06-10 06:40] LABS: BUN Creatinine Ratio 30.4 (10-20); Calcium 9.8 mg/dl (8.5-10.1); Creatinine Clr Calc Pharmacy 76.2 ml/min; Est GFR (African American) 87.5; Est GFR (Non-African American) 75.5; Potassium 4.9 mmol/L (3.5-5.1)
[2018-06-10 06:44] LABS: Phosphorus 2.4 mg/dl (2.5-4.9)
[2018-06-10 09:33] LABS: INR 1.2 (0.9-1.1); Prothrombin Time 11.7 Seconds (9.0-12.0)
[2018-06-10 09:43] LABS: Iron 43 mcg/dl (35-175)
[2018-06-10 10:00] LABS: Folate (Folic Acid) 6.97 ng/ml (>5.38); Vitamin B12 > 2000 pg/ml (211-911)
== END 2018-06-11 17:00 ==
LOC: ED 11:01 → 4E 16:24 → SUATTDRO 16:24 → 4E 17:21

== ENCOUNTER 2018-07-16 17:29 | Inpatient (IN) ==
--- NOTE | 2018-07-16 22:31 | History & Physical Report ---
Date of Service July 16, 2018 Assessment & Plan (1) Pathological fracture of right hip: Mr. Bonner is a 77 year old male with a history of lung cancer s/p lobectomy, COPD, liver cirrhosis, prior CVA, COPD, DM2, hypertension and BPH who was transferred to [facility] from [facility] for a pathologic fracture of the right femur. -admit to med/surg -CT of the pelvis demonstrated an acute pathologic fracture of the right lesser trochanter with associated lytic bone lesion, consistent w/metastatic disease. -ortho consulted -basic labs, including CBC, CMP, PT/INR ordered -EKG and CXR ordered for pre-op assessment -pt is at >10% risk of major cardiac event as per revised cardiac risk index -> will consult cardiology for pre-op clearance -NPO at midnight. Will order albumin 25% infusion x1, then NS @ 100 mls/hr x2 bags -Stress nuclear imaging from 2016 shows normal LV systolic function Altered Mental Status -patient extremely drowsy on examination -ddx: medication related (pt received 2mg of dilaudid prior to arrival), infectious, metabolic (pt has hx of liver cirrhosis), delirium secondary to pain -will continue to monitor, hold off on further opioids at this time Hx of Lung Cancer s/p Lobectomy -s/p right lobectomy, has seen Dr. Liang in the past Asthma/COPD -home inhalers continued Hypertension -continue home carvedilol and losartan Hypothyroidism -no note of this diagnosis on prior admission and not listed on med rec in [place], however pt was receiving synthroid during admission in May 2018 -continue 50mcg of synthroid Diabetes Mellitus Type 2 -hold home insulin regimen -BSG AC/HS and ISS ordered BPH -continue home finasteride and tamsulosin Hx of CVA -hold home plavix in case of intervention tomorrow Peripheral neuropathy -continue home gabapentin Gout -continue home allopurinol GERD -continue home pantoprazole Depression -continue home paroxetine Code status: Unable to confirm w/patient due to drowsiness. Will leave as full for now, and discuss when able. Disposition: admit to med/surg DVT prophylaxis: SCDs (2) Hypertension: (3) Gout: (4) Diabetes: (5) BPH (benign prostatic hyperplasia): (6) Asthma: (7) COPD (chronic obstructive pulmonary disease): (8) CVA (cerebral vascular accident): (9) Change in mental status: (10) S/P lobectomy of lung: (11) Right lower lobe lung mass: History of Present Illness Primary Care Provider: Domo Alanis Mr. Bonner is a 77 year old male with a history of lung cancer s/p lobectomy, COPD, liver cirrhosis, prior CVA, COPD, DM2, hypertension and BPH who was transferred to [facility] from [facility] for a pathologic fracture of the right femur. History is limited due to the fact that the patient is very drowsy. Per review of records from [place], the patient presented to the ED due to right sided hip pain without known injury. X-ray of the right knee did not show any acute osseus abnormalities, however CT of the pelvis demonstrated an acute pathologic fracture of the right lesser trochanter with associated lytic bone lesion, consistent w/metastatic disease. PMHx: asthma, COPD, DM2, GERD, liver cirrhosis, HTN, ischemic cardiomyopathy, prior CVA. PSHx: colon resection, cholecytestctomy, hernia repair, right TKA, prior shoulder surgery, lobectomy. The patient was given 2 1mg IM dilaudid doses in the ED, the most recent dose was at 7PM. Allergies Allergy/AdvReac Type Severity Reaction Status Date / Time meperidine Allergy Severe ANAPHYLAXIS Unverified 06/04/18 12:24 Iodinated Contrast- Oral and Allergy Intermediate HIVES Unverified 06/04/18 12: 24 IV Dye oxycodone Allergy Intermediate SHORTNESS Unverified 06/04/18 12:24 OF BREATH dobutamine AdvReac Unknown abd pain Unverified 06/04/18 12:24 perflutren AdvReac Unknown abd pain Unverified 06/04/18 12:24 Home Medications Home Medications Medication Instructions Recorded Confirmed Type albuterol sulfate 2.5 mg INHALATION QID PRN 06/04/18 06/04/18 History albuterol sulfate [ProAir HFA] 2 puff INHALATION Q6H PRN 06/04/18 06/04/18 History allopurinol 300 mg PO DAILY 06/04/18 06/04/18 History atorvastatin 40 mg PO PM 06/04/18 06/04/18 History budesonide 0.25 mg INHALATION BID PRN 06/04/18 06/04/18 History carvedilol 3.125 mg PO BID 06/04/18 06/04/18 History cholecalciferol (vitamin D3) 2,000 unit PO DAILY 06/04/18 06/04/18 History [Vitamin D3] clopidogrel 75 mg PO DAILY 06/04/18 06/04/18 History cyanocobalamin (vitamin B-12) 1,000 mcg PO DAILY 06/04/18 06/04/18 History finasteride 5 mg PO DAILY 06/04/18 06/04/18 History formoterol fumarate [Perforomist] 1 dose INHALATION BID PRN 06/04/18 06/04/18 History gabapentin 300 mg PO PM 06/04/18 06/04/18 History insulin glargine U-300 conc 20 unit SUBCUT PM 06/04/18 06/04/18 History [Toujeo SoloStar U-300 Insulin] insulin lispro [Humalog KwikPen 4 unit SUBCUT AC 06/04/18 06/04/18 History Insulin] ipratropium-albuterol [Combivent 1 puff INHALATION QID 06/04/18 06/04/18 History Respimat] levothyroxine 50 mcg PO DAILY 06/04/18 06/04/18 History magnesium oxide 400 mg PO DAILY 06/04/18 06/04/18 History pantoprazole 40 mg PO DAILY 06/04/18 06/04/18 History paroxetine HCl 10 mg PO DAILY 06/04/18 06/04/18 History tamsulosin 0.4 mg PO PM 06/04/18 06/04/18 History amoxicillin-pot clavulanate 1 tab PO BIDM #6 tab 06/11/18 Rx prednisone 40 mg PO BID #2 tab 06/11/18 Rx Past Med/Surg History Medical History Constipation Weakness (Acute) Pressure ulcer, sacrum (Acute) Lung mass (Acute) Hypertension (Chronic) Diabetes BPH (benign prostatic hyperplasia) Asthma (Chronic) COPD (chronic obstructive pulmonary disease) (Chronic) Carcinoma, lung COPD (chronic obstructive pulmonary disease) (Chronic) H/o hospitalization but no h/o intubation in the past Diabetes (Chronic) Liver cirrhosis Pneumonia 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 (UE and LE) Surgical History H/O colectomy H/O inguinal hernia repair S/P cholecystectomy S/P lobectomy of lung right lower lobe 04/2017 S/P total knee arthroplasty right Status post total shoulder arthroplasty Right 2018 Social History Current Living Situation: Alone Feels Safe at Home: Yes Smoking Status: Former smoker (QUIT AT AGE 31, SMOKED FOR 17 YEARS) Second Hand Exposure: No Hx Alcohol Use: No (05/21/1971 quit) Hx Substance Use: No Beliefs That Will Affect Care: None Aqua Ammonia Operator Required: No Review of Systems Patient extremely drowsy, unable to obtain ROS. Constitutional: + fatigue; no fever and no chills Physical Exam 2 Vital Signs (Past 24 Hours): Last Vital Signs Temp 37.3 C 07/16/18 21:53 Pulse 80 07/16/18 21:53 Resp 20 07/16/18 21:53 BP 102/63 07/16/18 21:53 Pulse Ox 94 07/16/18 21:53 Constitutional: well developed and well nourished; no acute distress drowsy. Wakes up to mumble an answer to a question and then falls back asleep. Eyes: PERRL, conjunctivae normal, anicteric sclerae Respiratory: Auscultation: + diminished lung sounds (over right lung) and + wheezes (occasional scattered wheeze) Cardiovascular: RRR, no murmur, no edema Gastrointestinal (Abdomen): normal bowel sounds, soft, nontender, no hepatosplenomegaly Musculoskeletal: Extremities: + leg externally rotated (right leg) right hip w/tenderness to palpation Skin: no rashes, warm and dry Supervising Physician Co-Signing Physician Notes Pt seen/examined in conjunction with resident MD Bishop. Orders and plan of admission formulated with resident. 77 y/o M Hx COPD, DMII, GERD, liver cirrhosis, HTN, CHF, prior CVA, met lung CA. Presents as direct transfer from [place] due to a pathological fracture of his R femur. OE The pt had received pain meds and was somnolent when I arrived. S1,2 R +M CTAB - large air noises limit exam NT, ND No CCE P: Pt is high risk for surgery and will need cardio clearance, A consult is requested. Placed on a SS brayden-op Cont Synthroid Consider stress dose steroids with any indication of low BP or prior to surgery. Resident Activity Tracking Resident Involvement: Resident Care Provided Care Provided: Adult [facility] Medicine
[2018-07-16] MEDS ORDERED: GLUCOSE 40% GEL 15 GM TUBE PO PRN (23:13)
[2018-07-16] MEDS ORDERED: DEXTROSE 50% 50 ML SYRINGE IV PRN (23:13)
[2018-07-16] MEDS ORDERED: ALBUTEROL HFA INHALER 8.5 GM INH PRN (23:13)
[2018-07-16] MEDS ORDERED: CARBOHYDRATES FOR HYPOGLYCEMIA PO PRN (23:13)
[2018-07-16] MEDS ORDERED: GLUCAGON FOR INJ 1 MG VIAL SQ PRN (23:13)
[2018-07-16] MEDS ORDERED: FORMOTEROL 20 MCG/2 ML VIAL INH PRN (23:13)
[2018-07-16] MEDS ORDERED: GLUCOSE 10 TABS/TUBE PO PRN (23:13)
[2018-07-16] MEDS ORDERED: ALBUTEROL 0.083% NEBU SOLN 3 ML VIAL INH PRN (23:13)
[2018-07-16 23:28] LABS: Basophils # (auto) 0.03 K/uL (0-0.2); Basophils % (auto) 0.3 %; Eosinophils # (auto) 0.03 K/uL (0-0.5); Eosinophils % (auto) 0.3 %; Hematocrit (blood only) 28.7 % (42-52); Immature Granulocytes # (auto) 0.05 K/uL (0.00-0.02); Immature Granulocytes % (auto) 0.6 %; Lymphocytes # (auto) 1.59 K/uL (1.2-3.4); Lymphocytes % (auto) 18.4 %; Mean Corpuscular Hgb Conc 31.4 g/dL (32-36); Mean Corpuscular Volume 79.9 fL (80-100); Mean Platelet Volume 8.3 fL (7.4-10.4); Monocytes # (auto) 0.78 K/uL (0.11-0.59); Neutrophils # (auto) 6.17 K/uL (1.4-6.5); Neutrophils % (auto) 71.4 %; Platelet Count 152 K/uL (130-400); RDW Coefficient of Variation 18.9 % (11.5-14.5); RDW Standard Deviation 55.2 fL (36.4-46.3); Red Blood Count 3.59 M/uL (4.7-6.1); White Blood Count 8.65 K/uL (4.8-10.8)
[2018-07-16 23:40] LABS: INR 1.3 (0.9-1.1); Prothrombin Time 12.7 Seconds (9.0-12.0)
[2018-07-16] MEDS ORDERED: Nursing to Pharmacy Communication ONE (23:41)
[2018-07-16 23:51] LABS: Albumin Level 1.6 gm/dl (3.4-5.0); BUN Creatinine Ratio 19.2 (10-20); Calcium 8.8 mg/dl (8.5-10.1); Creatinine Clr Calc Pharmacy 68.2 ml/min; Est GFR (African American) 75.2; Est GFR (Non-African American) 64.9; Potassium 4.3 mmol/L (3.5-5.1)
[2018-07-16 23:54] LABS: Albumin Globulin Ratio 0.4 (0.9-2); Bilirubin,Total 1.1 mg/dl (0.2-1); Globulin 4.1 gm/dl (2.5-4.0); Total Protein 5.7 gm/dl (6.4-8.2)
[2018-07-17] MEDS ORDERED: ALBUMIN 25% 50 ML IV ONE (02:25)
[2018-07-17] MEDS: SODIUM CHLORIDE 0.9% 1000ML 1,000 ML IV SCH ×2 (03:01→14:17)
[2018-07-17] MEDS: INSULIN ASPART 100 UNITS/ML 3 ML PEN SC SCH ×4 (05:35→20:56)
--- NOTE | 2018-07-17 06:31 | XRay Report ---
XR chest 1V portable HISTORY: 77 years-old Male hx lung ca, wheezing on exam acute wheezing. History of lung cancer. COMPARISON: Chest radiograph 06/10/2018, PET CT 06/25/2017 TECHNIQUE: Portable AP view of the chest FINDINGS: Cardiac silhouette is enlarged, unchanged. The left lung appears generally clear. No pneumothorax. Un changed small right pleural effusion with right basilar consolidation and right hilar prominence. Bon es appear grossly intact. Right shoulder arthroplasty. Cholecystectomy. IMPRESSION: 1. Cardiomegaly without acute process. 2. Unchanged small right pleural effusion with right basilar consolidation and right perihilar densit ies. The above report was generated using voice recognition software. It may contain grammatical, syntax o r spelling errors. Electronically signed by: Darius Ramirez M.D. 07/17/2018 6:29 AM
[2018-07-17] MEDS: LEVOTHYROXINE SODIUM 50 MCG TABLET PO SCH (06:42)
[2018-07-17] MEDS: ACETAMINOPHEN 1,000 MG/100 ML VIAL IV PRN ×2 (06:42→19:11)
--- NOTE | 2018-07-17 07:49 | XRay Report ---
XR femur RT 2V routine CLINICAL HISTORY: 77 years-old Male presenting with pathologic fx. TECHNIQUE: Frontal and lateral views of the right femur were obtained. COMPARISON: Correlation made to plain radiographs of the right knee from 08/31/2017 and PET/CT from 06/25/2018. FINDINGS: Mildly displaced fracture of the lesser trochanter. Abnormal lucency suggested at the base of the les ser trochanter. The right femoral head remains congruent in the acetabulum. No advanced degenerative change. Visualized portion of the bony pelvis intact. Atherosclerosis. Total right knee arthroplasty with patellar resurfacing. No hardware complication. Prominent enthesophytes at the patella and tibia l tuberosity. Knee joint effusion may be present. IMPRESSION: 1. Mildly displaced pathologic fracture of the lesser trochanter of the right femur new since most r ecent PET/CT on 06/25/2018. 2. No additional lesion or fracture is evident. Electronically signed by: Chon West M.D. 07/17/2018 7:47 AM
--- NOTE | 2018-07-17 08:25 | Cardiology Consultation ---
Date of Consultation July 17, 2018 Assessment & Plan (1) Preoperative cardiovascular examination: Mr. waddell is a 77-year-old male followed by Dr Mackey of our practice on a chronic basis with h/o chronic (non cardiac) chest pain, having had multiple past invasive and noninvasive assessments. He presents having recently been diagnosed with recurrent lung carcinoma. PET scan performed 06/25/18 revealed a right infrahilar FDG avid mass and FDG avid subcarinal lymph node consistent with recurrent malignancy, and there was an FDG avid lesion within the lesser trochanter of the right femur consistent with skeletal metastasis at that time. Patient has now been admitted with acute right hip pain and pathologic fracture. The rationale for proceeding with operative intervention would be to minimize pain and promote his mobility. The patient describes a chronic degree of shortness of breath which is not change, would likely have an explanation for this given his history of past lobectomy and lung cancer. I do not think he is having any unstable cardiac symptoms to prevent surgery. I would predict a low likelihood of perioperative cardiac complication, but I believe he is overall at high risk for operative intervention given his other comorbidities including lung cancer, and high risk for perioperative venous thromboembolic complication. Patient therefore stable from a cardiac perspective to proceed with operative intervention if need to be prudent from an orthopedic standpoint. Continue his cardiac medications. Clopidogrel appears to be on hold for surgery, and I think this is reasonable as long as it is reinitiated postop. Recommend cautious attention to DVT prophylaxis. (2) Pathological fracture of right hip: (3) Right lower lobe lung mass: History of Present Illness Attending Physician: John Ryan, DO History of Present Illness Alex Bonner is a 77-year-old male seen in cardiology consultation per the request of Dr Bishop of the [place] hospitalist service in preoperative cardiology evaluation prior to proposed orthopedic surgery. The patient's primary security architect is Dr. Connor Mackey of our practice. His most recent outpatient follow-up visit had been on 02/27/18. At that time he had actually been seen in preop consultation prior to a proposed shoulder surgery. The patient has a prior history of chronic noncardiac chest discomfort with previous cardiac catheterization performed in 1997, 2008, 2010, 2012, and most recently in March 2015 at which time the patient was found to have a 30% stenosis of the ramus intermedius branch with otherwise nonobstructive coronary heart disease. Pharmacologic nuclear stress test have been performed in October 2016 with normal perfusion and normal LVEF. The patient follows with Dr. Liang of thoracic surgery and has a history of lung carcinoma and underwent right lower lobectomy in April 2017. Last month he underwent bronchoscopy and EBUS for assessment of the collapsed middle right lobe of the lung. There are also concerns about prominent lymph nodes at that time . Cytology from samples obtained at the time of the bronchoscopy were positive for malignant cells with squamous cell carcinoma. The patient was received to the [facility] as a transfer from the [facility] emergency room yesterday for somnolence and right-sided hip pain without known injury. CT revealed evidence of an acute pathologic fracture of the right masseter trochanter with associated lytic bone lesions consistent with metastatic disease. The patient's past medical history is otherwise notable for COPD, type 2 diabetes mellitus, hepatic cirrhosis, hypertension. The history and physical states that he has a history of a "ischemic cardiomyopathy "I do not find history compatible with this based on his outpatient cardiology notes. Allergies Allergy/AdvReac Type Severity Reaction Status Date / Time meperidine Allergy Severe ANAPHYLAXIS Unverified 06/04/18 12:24 Iodinated Contrast- Oral and Allergy Intermediate HIVES Unverified 06/04/18 12: 24 IV Dye oxycodone Allergy Intermediate SHORTNESS Unverified 06/04/18 12:24 OF BREATH dobutamine AdvReac Unknown abd pain Unverified 06/04/18 12:24 perflutren AdvReac Unknown abd pain Unverified 06/04/18 12:24 Home Medications Home Medications Medication Instructions Recorded Confirmed Type albuterol sulfate 2.5 mg INHALATION QID PRN 06/04/18 06/04/18 History albuterol sulfate [ProAir HFA] 2 puff INHALATION Q6H PRN 06/04/18 06/04/18 History allopurinol 300 mg PO DAILY 06/04/18 06/04/18 History atorvastatin 40 mg PO PM 06/04/18 06/04/18 History budesonide 0.25 mg INHALATION BID PRN 06/04/18 06/04/18 History carvedilol 3.125 mg PO BID 06/04/18 06/04/18 History cholecalciferol (vitamin D3) 2,000 unit PO DAILY 06/04/18 06/04/18 History [Vitamin D3] clopidogrel 75 mg PO DAILY 06/04/18 06/04/18 History cyanocobalamin (vitamin B-12) 1,000 mcg PO DAILY 06/04/18 06/04/18 History finasteride 5 mg PO DAILY 06/04/18 06/04/18 History formoterol fumarate [Perforomist] 1 dose INHALATION BID PRN 06/04/18 06/04/18 History gabapentin 300 mg PO PM 06/04/18 06/04/18 History insulin glargine U-300 conc 20 unit SUBCUT PM 06/04/18 06/04/18 History [Toujeo SoloStar U-300 Insulin] insulin lispro [Humalog KwikPen 4 unit SUBCUT AC 06/04/18 06/04/18 History Insulin] ipratropium-albuterol [Combivent 1 puff INHALATION QID 06/04/18 06/04/18 History Respimat] levothyroxine 50 mcg PO DAILY 06/04/18 06/04/18 History magnesium oxide 400 mg PO DAILY 06/04/18 06/04/18 History pantoprazole 40 mg PO DAILY 06/04/18 06/04/18 History paroxetine HCl 10 mg PO DAILY 06/04/18 06/04/18 History tamsulosin 0.4 mg PO PM 06/04/18 06/04/18 History amoxicillin-pot clavulanate 1 tab PO BIDM #6 tab 06/11/18 Rx prednisone 40 mg PO BID #2 tab 06/11/18 Rx Patient History Medical History Constipation Weakness (Acute) Pressure ulcer, sacrum (Acute) Lung mass (Acute) Hypertension (Chronic) Diabetes BPH (benign prostatic hyperplasia) Asthma (Chronic) COPD (chronic obstructive pulmonary disease) (Chronic) Carcinoma, lung COPD (chronic obstructive pulmonary disease) (Chronic) H/o hospitalization but no h/o intubation in the past Diabetes (Chronic) Liver cirrhosis Pneumonia 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 (UE and LE) Surgical History H/O colectomy H/O inguinal hernia repair S/P cholecystectomy S/P lobectomy of lung right lower lobe 04/2017 S/P total knee arthroplasty right Status post total shoulder arthroplasty Right 2018 Social History marital status: Single Current Living Situation: Alone Feels Safe at Home: Yes Smoking Status: Former smoker (QUIT AT AGE 31, SMOKED FOR 17 YEARS) Second Hand Exposure: No Hx Alcohol Use: No (05/21/1971 quit) Hx Substance Use: No Beliefs That Will Affect Care: None Communication Ability: Effective Physical Exam 2 Vital Signs (Past 24 Hours): Last Vital Signs Temp 37.1 C 07/17/18 08:01 Pulse 79 07/17/18 08:01 Resp 18 07/17/18 08:01 BP 127/75 07/17/18 08:01 Pulse Ox 94 07/17/18 08:01 Results & Data Laboratory Results EKG performed 07/17/18 reviewed independently revealed normal sinus rhythm with occasional PVCs, compared to a prior tracing performed generally 2018 subtle T wave inversions noted in the inferior leads in May are no longer present. Diagnostic Findings Cardiac Studies: Previous cardiac catheterization performed 1997 reportedly normal. Catheterization performed 2008 reportedly nonobstructive coronary disease although details are not available. Repeat cath 2010 reportedly minimal CAD. Cath 07/2012 report unavailable, Cath 03/2015 30% ramus intermedius stenosis , otherwise nonobstructive coronary artery disease. Lexiscan Nuclear Stress Test Report 10/2016: Myocardial perfusion imaging is normal. Overall left ventricular systolic function was normal without regional wall motion abnormalities. The calculated LVEF was 63% Compared previous study of 11/09/15 there is no significant change. Lexiscan nuclear stress test report November 09, 2015: Myocardial perfusion imaging is normal. Overall left ventricular systolic function was normal without regional wall motion abnormalities. The left ventricular ejection fraction was 59%. There are no prior studies available for comparison. Dobutamine Stress Echo Report 09/2015: The stress echo is indeterminate for inducible ischemia. Testing stopped prematurely due to severe abdominal pain, see progress note for full details. No inducible ischemia at heart rate level achieved. Hypertensive BP response to dobutamine infusion. Blunted HR response. At rest, normal LV chamber size with mild concentric LVH. Normal LV systolic function without regional wall motion abnormality, EF 55-60%. Grade I diastolic dysfunction. Mild aortic valve sclerosis without stenosis. Mild mitral annular calcification.
[2018-07-17] MEDS: FINASTERIDE 5 MG TAB PO SCH (09:47)
[2018-07-17] MEDS: PANTOprazole 40 MG TAB PO SCH (09:47)
[2018-07-17] MEDS: CARVEDILOL 3.125 MG TAB PO SCH ×2 (09:47→20:56)
[2018-07-17] MEDS: ALLOPURINOL 300 MG TAB PO SCH (09:47)
[2018-07-17] MEDS: LOSARTAN POTASSIUM 50 MG TAB PO SCH (09:47)
[2018-07-17] MEDS: PARoxetine HCl 10 MG TAB PO SCH (09:47)
[2018-07-17] MEDS: IPRATROPIUM BROMIDE/ALBUTEROL respimat INH INH SCH ×4 (09:49→20:53)
--- NOTE | 2018-07-17 13:24 | Hospitalist Progress Note ---
Date of Service July 17, 2018 Assessment & Plan (1) Pathological fracture of right hip: -CT of the pelvis demonstrated an acute pathologic fracture of the right lesser trochanter with associated lytic bone lesion, consistent w/metastatic disease. -ortho consulted - awaiting decision on surgery -cardiology consulted for preop clearance and does not believe he has significant risk from a cardiac standpoint. -NPO -Stress nuclear imaging from 2017 shows normal LV systolic function - consulted Dr. Orantes who patient was to establish with for oncology (2) Hypertension: -continue home carvedilol and losartan (3) Gout: -continue home allopurinol (4) Diabetes: -hold home insulin regimen -BSG AC/HS and ISS ordered (5) BPH (benign prostatic hyperplasia): (6) Asthma: -home inhalers continued (7) COPD (chronic obstructive pulmonary disease): continue albuterol inhaler, budesonide, (8) CVA (cerebral vascular accident): -hold home plavix in case of intervention tomorrow (9) Change in mental status: (10) S/P lobectomy of lung: -s/p right lobectomy, has seen Dr. Liang in the past (11) Right lower lobe lung mass: (12) Hypothyroid: -no note of this diagnosis on prior admission and not listed on med rec in [place], however pt was receiving synthroid during admission in May 2018 -continue 50mcg of synthroid (13) Neuropathy: -continue home gabapentin (14) DVT prophylaxis: SCDs until seen by ortho Subjective Mr. Bonner reports some pain in his hip and chest/epigastric pain which Dr. Hicks says has been heavily worked up and is not likely cardiac. Review of Systems All systems reviewed & are unremarkable except as noted in HPI & below Physical Exam 2 Vital Signs (Past 24 Hours): Last Vital Signs Temp 36.8 C 07/17/18 08:16 Pulse 98 H 07/17/18 08:16 Resp 18 07/17/18 08:16 BP 108/70 07/17/18 08:16 Pulse Ox 97 07/17/18 08:16 Physical Exam: General: no distress Eyes: normal inspection, PERLL Respiratory: chest non tender, clear to auscultation, normal breath sounds, no respiratory distress, no accessory muscle use Cardiac: regular rate and rhythm, no rub or gallop, no murmur, no edema, no jvd GI/: active bowel sounds, no abd pain or tenderness, soft, non distended Extremities: normal range of motion, normal strength, non tender Neuro/Psych: alert and oriented x 3, normal mood and affect Skin: normal color, dry Results & Data Laboratory Results Abnormal lab results 07/16/18 07/16/18 07/16/18 Range/Units 23:17 23:17 23:17 RBC 3.59 L (4.7-6.1) M/uL Hgb 9.0 L (14.0-18.0) g/dL Hct 28.7 L (42-52) % MCV 79.9 L (80-100) fL MCHC 31.4 L (32-36) g/dL RDW Std Deviation 55.2 H (36.4-46.3) fL RDW Coeff of Dc 18.9 H (11.5-14.5) % Immature Gran # (Auto) 0.05 H (0.00-0.02) K/uL Russell # (Auto) 0.78 H (0.11-0.59) K/uL PT 12.7 H (9.0-12.0) Seconds INR 1.3 H (0.9-1.1) BUN 21 H (7-18) mg/dl Glucose 104 H (70-99) mg/dl POC Glucose (70-99) Total Bilirubin 1.1 H (0.2-1) mg/dl ALT 11 L (12-78) U/L Total Protein 5.7 L (6.4-8.2) gm/dl Albumin 1.6 L (3.4-5.0) gm/dl Globulin 4.1 H (2.5-4.0) gm/dl Albumin/Globulin Ratio 0.4 L (0.9-2) 07/17/18 Range/Units 01:06 RBC (4.7-6.1) M/uL Hgb (14.0-18.0) g/dL Hct (42-52) % MCV (80-100) fL MCHC (32-36) g/dL RDW Std Deviation (36.4-46.3) fL RDW Coeff of Dc (11.5-14.5) % Immature Gran # (Auto) (0.00-0.02) K/uL Russell # (Auto) (0.11-0.59) K/uL PT (9.0-12.0) Seconds INR (0.9-1.1) BUN (7-18) mg/dl Glucose (70-99) mg/dl POC Glucose 116 H (70-99) Total Bilirubin (0.2-1) mg/dl ALT (12-78) U/L Total Protein (6.4-8.2) gm/dl Albumin (3.4-5.0) gm/dl Globulin (2.5-4.0) gm/dl Albumin/Globulin Ratio (0.9-2)
[2018-07-17] MEDS ORDERED: Nursing to Pharmacy Communication ONE ×2 (15:48→23:41)
[2018-07-17] MEDS ORDERED: HEPARIN SOD 5,000 UNIT/0.5 ML VIAL SQ ONE (16:51)
--- NOTE | 2018-07-17 17:04 | Radiation OncologyConsultation ---
Date of Consultation July 17, 2018 Assessment & Plan (1) Pathological fracture of right hip: In summary Mr. 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 Bonifacio Liang in March 2017. He has been followed since and is done well until recently when he was found to have a right hilar and subcarinal mass consistent with recurrent lung cancer. He underwent a bronchoscopy and ultrasound biopsy of mediastinal lymph nodes. All lymph nodes sampled were negative but washings from the right middle lobe were positive for cells consistent with squamous cell carcinoma. A PET CT scan performed for restaging confirmed a 6 cm mass in the right hilar region and a 3 cm subcarinal mass both FDG avid. It also showed uptake in the right lesser trochanter. Plain films showed an avulsion fracture of the right lesser trochanter with a lucency in the region of the lower right femoral neck. An MRI was recommended to better evaluate the amount of cortical destruction to determine the potential requirement for stabilization. The patient has been experiencing significant right hip pain with ambulation over the past several days. We were asked to see him for evaluation and the role of palliative radiation. I reviewed his x-rays with radiology. This included both plain films, CAT scan and PET scan. There is uptake at the right lesser trochanter which is very specific with what appears to be an avulsion fracture of the lesser trochanter. There is no obvious evidence of significant cortical destruction and based on these images no obvious significant risk of fracture. The patient has however to be scheduled for an MRI to better define the amount of cortical destruction which will more precisely evaluate potential fracture risks. I met with the patient and discussed the use of palliative radiation for treatment of his right hip pain. I indicated that if there is no role for surgical stabilization we could proceed with a CT simulation and palliation delivered over 5-10 fractions to the right hip. If however the patient will require some form of stabilization we would then recommend postoperative palliative radiation following completion of the stabilization process. I briefly described the potential risks and side effects of a course of palliative radiation to the right hip. No consent form was obtained at this time however. Pathology associated with fracture: neoplastic disease History of Present Illness Reason for Consultation: Patient has a history of lung cancer with a metastatic lesion in the right proximal femur at the lesser trochanter and is having moderate to severe pain. Attending Physician: John Ryan DO History of Present Illness Mr. Bonner is a 77-year-old male who was found to have a right lower lobe lesion in 2016. He was seen by Dr. Liang who performed a robotic assisted thorascopic right lower lobectomy with mediastinal lymphadenectomy in April 2017. 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 The patient developed a small loculated effusion postoperatively that required a right thoracentesis and ultrasound drainage of 600 mL's of fluid. This led to incomplete expansion of the right lung and has been followed for this since. The patient has been doing fairly well since then with adequate pulmonary function. On March 28, 2018 patient underwent a shoulder replacement. Patient underwent a CT scan of the abdomen and pelvis without contrast on June 04, 2018 following complaint of lower abdominal pain. Evaluation of the lower chest revealed a right pleural effusion with masslike consolidation within the right lower lobe. There was cirrhotic morphology of the liver and splenomegaly. There was no evidence of disseminated metastatic disease or abnormal lymphadenopathy at that time. On June 06, [address] angios chest PE protocol. This showed tapered narrowing and occlusion of the right lower lobe pulmonary artery and what appears to be a right infrahilar masslike process containing several scattered calcifications. This measured 5 x 4 cm. There was complete occlusion of the right lower lobe bronchus and right mid lung atelectatic changes. There was a right pleural effusion. There were several shotty mediastinal nodes measuring up to 1.5 cm. Patient was seen by Dr. Liang in the hospital on June 07, 2018. He was concerned about the occlusion of the right middle lobe bronchus and opted to take the patient for an endobronchial ultrasound and evaluation of mediastinal lymph nodes with fiberoptic bronchoscopy. Patient underwent an endobronchial ultrasound with biopsy of the left level 4, level 7, right level 11, right level 10, right level 4, right level 2 lymph node stations. Bronchoscopy showed narrowing of the right middle lobe bronchus but no endobronchial abnormalities were appreciated. Lymph node 11 R was benign, lymph node R 10 was benign, lymph node R4 was benign, lymph node are 2 was benign, lymph node 7 was benign, lymph node L4 showed no malignant cells and supra dimensional bronchial brushing of the right middle lobe however was positive for malignant cells consistent with squamous cell carcinoma. Case #: [id number]. A restaging PET CT scan was performed on June 25, 2018. This revealed a right infrahilar FDG avid mass and an FDG avid subcarinal pathologic lymph node consistent with recurrent malignancy. There was also noted and FDG avid lesion within the lesser trochanter of the right femur consistent with skeletal metastasis. The right infrahilar mass measured 6.3 x 2.8 cm with an SUV max of 10.2 and the subcarinal lymph node measured 3.9 x 3.5 cm with an SUV max of 11.2. A mildly enlarged right paratracheal lymph node was noted having mild FDG uptake. Examination of the abdomen and pelvis were benign. Musculoskeletal showed the FDG uptake of the lesser trochanter on the right femur. The patient was having intermittent right knee pain but several days ago started to note moderate to at times severe right hip pain that was exacerbated by weightbearing. The patient was admitted and a x-ray of the femur was performed on July 17, 2018. This showed a mildly displaced fracture of the lesser trochanter. Abnormal lucency suggested at the base of the lesser trochanter. The total right knee arthroplasty with patellar resurfacing was again noted. A knee joint effusion was possibly present in the right. No additional lesions or fractures were identified. Patient was seen by orthopedics who recommended a MRI to evaluate the amount of cortical destruction. This study is pending. According to the patient he was seen by medical oncology and we were asked to see the patient in referral for evaluation of the role of palliative radiation. This chart was completed in part utilizing [employer] Speech Voice Recognition software. Grammatical errors, random word insertions, pronoun errors and incomplete sentences are occasional consequence of this system due to software limitations, ambient noise and hardware issues. Any formal questions or concerns about the content, text or information contained within the body of this dictation should be directly addressed to the provider for clarification. Navarro Sutton MD Department of Radiation Oncology [facility] Allergies Allergy/AdvReac Type Severity Reaction Status Date / Time meperidine Allergy Severe ANAPHYLAXIS Unverified 06/04/18 12:24 Iodinated Contrast- Oral and Allergy Intermediate HIVES Unverified 06/04/18 12: 24 IV Dye oxycodone Allergy Intermediate SHORTNESS Unverified 06/04/18 12:24 OF BREATH dobutamine AdvReac Unknown abd pain Unverified 06/04/18 12:24 perflutren AdvReac Unknown abd pain Unverified 06/04/18 12:24 Home Medications Home Medications Medication Instructions Recorded Confirmed Type albuterol sulfate 2.5 mg INHALATION QID PRN 06/04/18 06/04/18 History albuterol sulfate [ProAir HFA] 2 puff INHALATION Q6H PRN 06/04/18 06/04/18 History allopurinol 300 mg PO DAILY 06/04/18 06/04/18 History atorvastatin 40 mg PO PM 06/04/18 06/04/18 History budesonide 0.25 mg INHALATION BID PRN 06/04/18 06/04/18 History carvedilol 3.125 mg PO BID 06/04/18 06/04/18 History cholecalciferol (vitamin D3) 2,000 unit PO DAILY 06/04/18 06/04/18 History [Vitamin D3] clopidogrel 75 mg PO DAILY 06/04/18 06/04/18 History cyanocobalamin (vitamin B-12) 1,000 mcg PO DAILY 06/04/18 06/04/18 History finasteride 5 mg PO DAILY 06/04/18 06/04/18 History formoterol fumarate [Perforomist] 1 dose INHALATION BID PRN 06/04/18 06/04/18 History gabapentin 300 mg PO PM 06/04/18 06/04/18 History insulin glargine U-300 conc 20 unit SUBCUT PM 06/04/18 06/04/18 History [Moise Marrero U-300 Insulin] insulin lispro [Humalog KwikPen 4 unit SUBCUT AC 06/04/18 06/04/18 History Insulin] ipratropium-albuterol [Combivent 1 puff INHALATION QID 06/04/18 06/04/18 History Respimat] levothyroxine 50 mcg PO DAILY 06/04/18 06/04/18 History magnesium oxide 400 mg PO DAILY 06/04/18 06/04/18 History pantoprazole 40 mg PO DAILY 06/04/18 06/04/18 History paroxetine HCl 10 mg PO DAILY 06/04/18 06/04/18 History tamsulosin 0.4 mg PO PM 06/04/18 06/04/18 History amoxicillin-pot clavulanate 1 tab PO BIDM #6 tab 06/11/18 Rx prednisone 40 mg PO BID #2 tab 06/11/18 Rx Patient History Medical History Constipation Weakness (Acute) Pressure ulcer, sacrum (Acute) Lung mass (Acute) Hypertension (Chronic) Diabetes BPH (benign prostatic hyperplasia) Asthma (Chronic) COPD (chronic obstructive pulmonary disease) (Chronic) Carcinoma, lung COPD (chronic obstructive pulmonary disease) (Chronic) H/o hospitalization but no h/o intubation in the past Diabetes (Chronic) Liver cirrhosis Pneumonia 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 (UE and LE) Surgical History H/O colectomy H/O inguinal hernia repair S/P cholecystectomy S/P lobectomy of lung right lower lobe 04/2017 S/P total knee arthroplasty right Status post total shoulder arthroplasty Right 2018 Social History marital status: Single Current Living Situation: Alone Feels Safe at Home: Yes Smoking Status: Former smoker (QUIT AT AGE 31, SMOKED FOR 17 YEARS) Second Hand Exposure: No Hx Alcohol Use: No (05/21/1971 quit) Hx Substance Use: No Beliefs That Will Affect Care: None Communication Ability: Effective Physical Exam 2 Vital Signs (Past 24 Hours): Last Vital Signs Temp 36.8 C 07/17/18 08:16 Pulse 98 H 07/17/18 08:16 Resp 18 07/17/18 08:16 BP 108/70 07/17/18 08:16 Pulse Ox 97 07/17/18 08:16 Physical Exam: The patient was seen in the hospital bed and examined. Constitutional: Patient is well-developed adequately nourished and lying in bed in no pain. HEENT: Head is normocephalic atraumatic. Eyes sclera white conjunctive are pink. Oral cavity the patient is edentulous with no oral mucosal abnormalities. Back: There is no scoliosis or kyphosis or CVA tenderness to percussion. Lungs: There is adequate air movement with decreased lung sounds over the right lung base and occasional scattered wheezes but no rales or rhonchi noted. Cardiovascular: There is regular rhythm with no murmurs. Abdomen: Is soft nontender no masses and no organomegaly. Adenopathy: There is no cervical, supraclavicular, axillary or inguinal adenopathy palpable. Extremities: The patient has tenderness with palpation over the right hip joint. There is no leg edema appreciated. Neurologic: The patient is alert and oriented. No cranial nerve deficits are appreciated. No obvious motor or sensory deficits noted. Skin: No rashes. The skin is warm and dry. Results Additional Studies 07/16/18 23:13 ECG 12 lead EKG Routine XR chest 1V portable Routine 07/17/18 07:18 XR femur RT 2V routine Routine 07/17/18 15:11 MR femur RT wo/w con Routine Time Spent Attending I spent 45 minutes including direct [id number] evaluation, examination and discussion of treatment options. This also included evaluation of the chart, pathology and plain films and scans. COURT
--- NOTE | 2018-07-17 17:10 | Radiation OncologyConsultation ---
Date of Consultation July 17, 2018 Assessment & Plan (1) Pathological fracture of right hip: In summary Mr. 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 Bonifacio Liang in March 2017. He has been followed since and is done well until recently when he was found to have a right hilar and subcarinal mass consistent with recurrent lung cancer. He underwent a bronchoscopy and ultrasound biopsy of mediastinal lymph nodes. All lymph nodes sampled were negative but washings from the right middle lobe were positive for cells consistent with squamous cell carcinoma. A PET CT scan performed for restaging confirmed a 6 cm mass in the right hilar region and a 3 cm subcarinal mass both FDG avid. It also showed uptake in the right lesser trochanter. Plain films showed an avulsion fracture of the right lesser trochanter with a lucency in the region of the lower right femoral neck. An MRI was recommended to better evaluate the amount of cortical destruction to determine the potential requirement for stabilization. The patient has been experiencing significant right hip pain with ambulation over the past several days. We were asked to see him for evaluation and the role of palliative radiation. I reviewed his x-rays with radiology. This included both plain films, CAT scan and PET scan. There is uptake at the right lesser trochanter which is very specific with what appears to be an avulsion fracture of the lesser trochanter. There is no obvious evidence of significant cortical destruction and based on these images no obvious significant risk of fracture. The patient has however to be scheduled for an MRI to better define the amount of cortical destruction which will more precisely evaluate potential fracture risks. I met with the patient and discussed the use of palliative radiation for treatment of his right hip pain. I indicated that if there is no role for surgical stabilization we could proceed with a CT simulation and palliation delivered over 5-10 fractions to the right hip. If however the patient will require some form of stabilization we would then recommend postoperative palliative radiation following completion of the stabilization process. I briefly described the potential risks and side effects of a course of palliative radiation to the right hip. No consent form was obtained at this time however. Encounter type: Fracture healing: Osteoporosis type: Pathology associated with fracture: neoplastic disease History of Present Illness Reason for Consultation: Mr. Bonner is experiencing moderate to times severe pain of the right hip. Plain films of shown what appears to be an avulsion fracture of the right lesser trochanter. PET/CT scan has confirmed this area of uptake. We were asked to see the patient for consideration of palliative radiation to the right hip. Attending Physician: John Ryan DO History of Present Illness Mr. Bonner is a 77-year-old male who was found to have a right lower lobe lesion in 2016. He was seen by Dr. Liang who performed a robotic assisted thorascopic right lower lobectomy with mediastinal lymphadenectomy in April 2017. 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 The patient developed a small loculated effusion postoperatively that required a right thoracentesis and ultrasound drainage of 600 mL's of fluid. This led to incomplete expansion of the right lung and has been followed for this since. The patient has been doing fairly well since then with adequate pulmonary function. On March 28, 2018 patient underwent a shoulder replacement. Patient underwent a CT scan of the abdomen and pelvis without contrast on June 04, 2018 following complaint of lower abdominal pain. Evaluation of the lower chest revealed a right pleural effusion with masslike consolidation within the right lower lobe. There was cirrhotic morphology of the liver and splenomegaly. There was no evidence of disseminated metastatic disease or abnormal lymphadenopathy at that time. On June 06, [address] angios chest PE protocol. This showed tapered narrowing and occlusion of the right lower lobe pulmonary artery and what appears to be a right infrahilar masslike process containing several scattered calcifications. This measured 5 x 4 cm. There was complete occlusion of the right lower lobe bronchus and right mid lung atelectatic changes. There was a right pleural effusion. There were several shotty mediastinal nodes measuring up to 1.5 cm. Patient was seen by Dr. Liang in the hospital on June 07, 2018. He was concerned about the occlusion of the right middle lobe bronchus and opted to take the patient for an endobronchial ultrasound and evaluation of mediastinal lymph nodes with fiberoptic bronchoscopy. Patient underwent an endobronchial ultrasound with biopsy of the left level 4, level 7, right level 11, right level 10, right level 4, right level 2 lymph node stations. Bronchoscopy showed narrowing of the right middle lobe bronchus but no endobronchial abnormalities were appreciated. Lymph node 11 R was benign, lymph node R 10 was benign, lymph node R4 was benign, lymph node are 2 was benign, lymph node 7 was benign, lymph node L4 showed no malignant cells and supra dimensional bronchial brushing of the right middle lobe however was positive for malignant cells consistent with squamous cell carcinoma. Case #: [id number]. A restaging PET CT scan was performed on June 25, 2018. This revealed a right infrahilar FDG avid mass and an FDG avid subcarinal pathologic lymph node consistent with recurrent malignancy. There was also noted and FDG avid lesion within the lesser trochanter of the right femur consistent with skeletal metastasis. The right infrahilar mass measured 6.3 x 2.8 cm with an SUV max of 10.2 and the subcarinal lymph node measured 3.9 x 3.5 cm with an SUV max of 11.2. A mildly enlarged right paratracheal lymph node was noted having mild FDG uptake. Examination of the abdomen and pelvis were benign. Musculoskeletal showed the FDG uptake of the lesser trochanter on the right femur. The patient was having intermittent right knee pain but several days ago started to note moderate to at times severe right hip pain that was exacerbated by weightbearing. The patient was admitted and a x-ray of the femur was performed on July 17, 2018. This showed a mildly displaced fracture of the lesser trochanter. Abnormal lucency suggested at the base of the lesser trochanter. The total right knee arthroplasty with patellar resurfacing was again noted. A knee joint effusion was possibly present in the right. No additional lesions or fractures were identified. Patient was seen by orthopedics who recommended a MRI to evaluate the amount of cortical destruction. This study is pending. According to the patient he was seen by medical oncology and we were asked to see the patient in referral for evaluation of the role of palliative radiation. This chart was completed in part utilizing [employer] Speech Voice Recognition software. Grammatical errors, random word insertions, pronoun errors and incomplete sentences are occasional consequence of this system due to software limitations, ambient noise and hardware issues. Any formal questions or concerns about the content, text or information contained within the body of this dictation should be directly addressed to the provider for clarification. Navarro Sutton MD Department of Radiation Oncology [facility] Allergies Allergy/AdvReac Type Severity Reaction Status Date / Time meperidine Allergy Severe ANAPHYLAXIS Unverified 06/04/18 12:24 Iodinated Contrast- Oral and Allergy Intermediate HIVES Unverified 06/04/18 12: 24 IV Dye oxycodone Allergy Intermediate SHORTNESS Unverified 06/04/18 12:24 OF BREATH dobutamine AdvReac Unknown abd pain Unverified 06/04/18 12:24 perflutren AdvReac Unknown abd pain Unverified 06/04/18 12:24 Home Medications Home Medications Medication Instructions Recorded Confirmed Type albuterol sulfate 2.5 mg INHALATION QID PRN 06/04/18 06/04/18 History albuterol sulfate [ProAir HFA] 2 puff INHALATION Q6H PRN 06/04/18 06/04/18 History allopurinol 300 mg PO DAILY 06/04/18 06/04/18 History atorvastatin 40 mg PO PM 06/04/18 06/04/18 History budesonide 0.25 mg INHALATION BID PRN 06/04/18 06/04/18 History carvedilol 3.125 mg PO BID 06/04/18 06/04/18 History cholecalciferol (vitamin D3) 2,000 unit PO DAILY 06/04/18 06/04/18 History [Vitamin D3] clopidogrel 75 mg PO DAILY 06/04/18 06/04/18 History cyanocobalamin (vitamin B-12) 1,000 mcg PO DAILY 06/04/18 06/04/18 History finasteride 5 mg PO DAILY 06/04/18 06/04/18 History formoterol fumarate [Perforomist] 1 dose INHALATION BID PRN 06/04/18 06/04/18 History gabapentin 300 mg PO PM 06/04/18 06/04/18 History insulin glargine U-300 conc 20 unit SUBCUT PM 06/04/18 06/04/18 History [Toufredericko SoloStar U-300 Insulin] insulin lispro [Humalog KwikPen 4 unit SUBCUT AC 06/04/18 06/04/18 History Insulin] ipratropium-albuterol [Combivent 1 puff INHALATION QID 06/04/18 06/04/18 History Respimat] levothyroxine 50 mcg PO DAILY 06/04/18 06/04/18 History magnesium oxide 400 mg PO DAILY 06/04/18 06/04/18 History pantoprazole 40 mg PO DAILY 06/04/18 06/04/18 History paroxetine HCl 10 mg PO DAILY 06/04/18 06/04/18 History tamsulosin 0.4 mg PO PM 06/04/18 06/04/18 History amoxicillin-pot clavulanate 1 tab PO BIDM #6 tab 06/11/18 Rx prednisone 40 mg PO BID #2 tab 06/11/18 Rx Patient History Medical History Constipation Weakness (Acute) Pressure ulcer, sacrum (Acute) Lung mass (Acute) Hypertension (Chronic) Diabetes BPH (benign prostatic hyperplasia) Asthma (Chronic) COPD (chronic obstructive pulmonary disease) (Chronic) Carcinoma, lung COPD (chronic obstructive pulmonary disease) (Chronic) H/o hospitalization but no h/o intubation in the past Diabetes (Chronic) Liver cirrhosis Pneumonia 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 (UE and LE) Surgical History H/O colectomy H/O inguinal hernia repair S/P cholecystectomy S/P lobectomy of lung right lower lobe 04/2017 S/P total knee arthroplasty right Status post total shoulder arthroplasty Right 2018 Social History marital status: Single Current Living Situation: Alone Feels Safe at Home: Yes Smoking Status: Former smoker (QUIT AT AGE 31, SMOKED FOR 17 YEARS) Second Hand Exposure: No Hx Alcohol Use: No (05/21/1971 quit) Hx Substance Use: No Beliefs That Will Affect Care: None Communication Ability: Effective Physical Exam 2 Vital Signs (Past 24 Hours): Last Vital Signs Temp 36.6 C 07/17/18 15:38 Pulse 74 07/17/18 15:38 Resp 18 07/17/18 15:38 BP 112/62 07/17/18 15:38 Pulse Ox 97 07/17/18 15:38 Physical Exam: The patient was seen in the hospital bed and examined. Constitutional: Patient is well-developed adequately nourished and lying in bed in no pain. HEENT: Head is normocephalic atraumatic. Eyes sclera white conjunctive are pink. Oral cavity the patient is edentulous with no oral mucosal abnormalities. Back: There is no scoliosis or kyphosis or CVA tenderness to percussion. Lungs: There is adequate air movement with decreased lung sounds over the right lung base and occasional scattered wheezes but no rales or rhonchi noted. Cardiovascular: There is regular rhythm with no murmurs. Abdomen: Is soft nontender no masses and no organomegaly. Adenopathy: There is no cervical, supraclavicular, axillary or inguinal adenopathy palpable. Extremities: The patient has tenderness with palpation over the right hip joint. There is no leg edema appreciated. Neurologic: The patient is alert and oriented. No cranial nerve deficits are appreciated. No obvious motor or sensory deficits noted. Skin: No rashes. The skin is warm and dry. Results Additional Studies 07/16/18 23:13 ECG 12 lead EKG Routine XR chest 1V portable Routine 07/17/18 07:18 XR femur RT 2V routine Routine 07/17/18 15:11 MR femur RT wo/w con Routine
--- NOTE | 2018-07-17 17:13 | Orthopedic Consultation ---
Date of Consultation July 17, 2018 Assessment & Plan (1) Pathological fracture of right hip: Pathologic fracture of the lesser trochanter, recommend MRI w/wo of the right femur prior to proceeding with prophylatic internal fixation of the femur. This is first episode of metistatic lesions to the right femur. Appreciate oncology recommendations, patient will require palliative radiation post- operatively. Tentatively plan for prophylactic nailing 07/18/18. This is not emergent however patient is to maintain non weight bearing on his right lower extremity due to impending fracture of the proximal femur at the level of the lesser trochanter. Thank you for the consultation. History of Present Illness Reason for Consultation: Right proximal femur pathologic fracture Attending Physician: John Ryan DO History of Present Illness The patient is a 77-year-old male with significant past medical history for COPD, diabetes type 2, GERD, liver cirrhosis, hypertension, CHF, CVA, lung cancer now with metastases to the right femur and subsequent pathologic fracture of the lesser trochanter. Patient admits to pain to the right hip which began , 07/12/2018 subsequently worsened over the next several days to the point where he was unable to ambulate. Patient seen at [facility] and found to have a displaced fracture of his lesser trochanter. Patient denies trauma. Denies numbness and tingling to the right lower extremity. Denies any associated injuries. Denies prior metastatic disease. Allergies Allergy/AdvReac Type Severity Reaction Status Date / Time meperidine Allergy Severe ANAPHYLAXIS Verified 07/18/18 13:34 Iodinated Contrast- Oral and Allergy Intermediate HIVES Verified 07/18/18 13:34 IV Dye oxycodone Allergy Intermediate SHORTNESS Verified 07/18/18 13:34 OF BREATH dobutamine AdvReac Unknown abd pain Verified 07/18/18 13:34 perflutren AdvReac Unknown abd pain Verified 07/18/18 13:34 Home Medications Home Medications Medication Instructions Recorded Confirmed Type albuterol sulfate 2.5 mg INHALATION QID PRN 06/04/18 06/04/18 History albuterol sulfate [ProAir HFA] 2 puff INHALATION Q6H PRN 06/04/18 06/04/18 Hi story allopurinol 300 mg PO DAILY 06/04/18 06/04/18 History atorvastatin 40 mg PO PM 06/04/18 06/04/18 History budesonide 0.25 mg INHALATION BID PRN 06/04/18 06/04/18 History carvedilol 3.125 mg PO BID 06/04/18 06/04/18 History cholecalciferol (vitamin D3) 2,000 unit PO DAILY 06/04/18 06/04/18 History [Vitamin D3] clopidogrel 75 mg PO DAILY 06/04/18 06/04/18 History cyanocobalamin (vitamin B-12) 1,000 mcg PO DAILY 06/04/18 06/04/18 History finasteride 5 mg PO DAILY 06/04/18 06/04/18 History formoterol fumarate [Perforomist] 1 dose INHALATION BID PRN 06/04/18 06/04/18 History gabapentin 300 mg PO PM 06/04/18 06/04/18 History insulin glargine U-300 conc 20 unit SUBCUT PM 06/04/18 06/04/18 History [Toujeo SoloStar U-300 Insulin] insulin lispro [Humalog KwikPen 4 unit SUBCUT AC 06/04/18 06/04/18 History Insulin] ipratropium-albuterol [Combivent 1 puff INHALATION QID 06/04/18 06/04/18 History Respimat] levothyroxine 50 mcg PO DAILY 06/04/18 06/04/18 History magnesium oxide 400 mg PO DAILY 06/04/18 06/04/18 History pantoprazole 40 mg PO DAILY 06/04/18 06/04/18 History paroxetine HCl 10 mg PO DAILY 06/04/18 06/04/18 History tamsulosin 0.4 mg PO PM 06/04/18 06/04/18 History amoxicillin-pot clavulanate 1 tab PO BIDM #6 tab 06/11/18 Rx prednisone 40 mg PO BID #2 tab 06/11/18 Rx Patient History Medical History Constipation Weakness (Acute) Pressure ulcer, sacrum (Acute) Lung mass (Acute) Hypertension (Chronic) Diabetes BPH (benign prostatic hyperplasia) Asthma (Chronic) COPD (chronic obstructive pulmonary disease) (Chronic) Carcinoma, lung COPD (chronic obstructive pulmonary disease) (Chronic) H/o hospitalization but no h/o intubation in the past Diabetes (Chronic) Liver cirrhosis Pneumonia 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 (UE and LE) Surgical History H/O colectomy H/O inguinal hernia repair S/P cholecystectomy S/P lobectomy of lung right lower lobe 04/2017 S/P total knee arthroplasty right Status post total shoulder arthroplasty Right 2018 Family History Other No pertinent family history Physical Exam Vital Signs (Past 24 Hours): Last Vital Signs Temp 36.6 C 07/17/18 15:38 Pulse 74 07/17/18 15:38 Resp 18 07/17/18 15:38 BP 112/62 07/17/18 15:38 Pulse Ox 97 07/17/18 15:38 Physical Exam: Right lower extremity is neurovascular sensory intact + EHL/FHL/TA/GS, +2 dorsalis pedis pulse, compartment soft nontender, significant pain with logroll, patient unable to perform hip flexion, patient guarded and has limited range of motion and strength secondary to pain full range of motion of the hip. Patient has tenderness to palpation to right knee, there is no erythema edema or effusion at this time. Surgical incision of the anterior midline knee is clean dry and intact. Constitutional: WD/WN, vitals as above Results & Data Diagnostic Findings XR femur RT 2V routine CLINICAL HISTORY: 77 years-old Male presenting with pathologic fx. TECHNIQUE: Frontal and lateral views of the right femur were obtained. COMPARISON: Correlation made to plain radiographs of the right knee from 08/31/2017 and PET/CT from 06/25/2018. FINDINGS: Mildly displaced fracture of the lesser trochanter. Abnormal lucency suggested at the base of the lesser trochanter. The right femoral head remains congruent in the acetabulum. No advanced degenerative change. Visualized portion of the bony pelvis intact. Atherosclerosis. Total right knee arthroplasty with patellar resurfacing. No hardware complication. Prominent enthesophytes at the patella and tibial tuberosity. Knee joint effusion may be present. IMPRESSION: 1. Mildly displaced pathologic fracture of the lesser trochanter of the right femur new since most recent PET/CT on 06/25/2018. 2. No additional lesion or fracture is evident. (1) Pathological fracture of right hip Pathology associated with fracture: neoplastic disease
[2018-07-17] MEDS ORDERED: MoRPHine SULFATE 4 MG/ML 1 ML CARP\\VIAL IV ONE (20:28)
[2018-07-17] MEDS: ATORVASTATIN 40 MG TAB PO SCH (20:56)
[2018-07-17] MEDS: GABAPENTIN 300 MG CAP PO SCH (20:56)
[2018-07-18] MEDS ORDERED: GADOBUTROL 65ML VIAL IV PRN (00:25)
[2018-07-18] MEDS: ACETAMINOPHEN 1,000 MG/100 ML VIAL IV PRN ×3 (00:45→17:03)
[2018-07-18] MEDS: INSULIN ASPART 100 UNITS/ML 3 ML PEN SC SCH ×3 (06:22→21:00)
[2018-07-18] MEDS: LEVOTHYROXINE SODIUM 50 MCG TABLET PO SCH (06:28)
--- NOTE | 2018-07-18 07:27 | Magnetic Resonance Report ---
MRI OF THE RIGHT FEMUR WITH AND WITHOUT CONTRAST CLINICAL HISTORY: Lytic lesion within the proximal right femur. Lung cancer. COMPARISON STUDY: PET/CT June 25, 2018. Right femur radiographs July 17, 2018. TECHNIQUE: Utilizing a 1.5 Rachel magnet and dedicated coil, multiplanar, multi echo imaging of the ri t femur was performed pre and postcontrast administration. Intravenous injection of [address] was uneventful. FINDINGS: Note is made of a 2.9 x 2.7 x 2.9 cm T1 hypointense, T2 hyperintense lesion within the less er trochanter of the right femur. Allowing for differences in technique, this is likely increased in size since PET/CT of June 25, 2018 and corresponds to the lytic lesion shown on right femur radiog raphs of July 17, 2018. Associated avulsed bone fragment is noted with extensive edema within the right thigh musculature, most prominent within the adductor musculature. This represents a pathologi c avulsion fracture. No additional foci of marrow replacement are identified. The lesion within the l simon trochanter does not extend into the femoral neck or head. This involves approximately 40% of th e cross-sectional area of the femur at the level of the lesion. A Briggs balloon is present within the bladder. Susceptibility artifact from right knee arthroplasty is noted. There is a moderate to large right knee joint effusion which is partially imaged. IMPRESSION: 1. Pathologic avulsion fracture of the lesser trochanter of the right femur due to a 2.9 cm metastasi s which involves approximately 40% of the cross-sectional area of the femur at the level of the lesio n. No extension of the lesion into the femoral head or neck. Extensive adjacent edema within the wilmer cent bone and soft tissues. 2. No additional foci of marrow replacement. 3. Moderate to large right knee joint effusion, partially imaged on this exam. Right knee arthroplast y. Electronically signed by: Bryn Kathleen M.D. 07/18/2018 7:25 AM
[2018-07-18] MEDS: CARVEDILOL 3.125 MG TAB PO SCH ×2 (08:25→20:59)
[2018-07-18] MEDS: IPRATROPIUM BROMIDE/ALBUTEROL respimat INH INH SCH ×4 (08:25→20:59)
[2018-07-18] MEDS: ALLOPURINOL 300 MG TAB PO SCH (08:25)
[2018-07-18] MEDS: PANTOprazole 40 MG TAB PO SCH (08:25)
[2018-07-18] MEDS: LOSARTAN POTASSIUM 50 MG TAB PO SCH (08:26)
[2018-07-18] MEDS: FINASTERIDE 5 MG TAB PO SCH (08:26)
[2018-07-18] MEDS: PARoxetine HCl 10 MG TAB PO SCH (08:27)
[2018-07-18] MEDS: SODIUM CHLORIDE 0.9% 500 ML IV SCH ×2 (10:52→20:03)
--- NOTE | 2018-07-18 10:53 | Orthopedic Progress Note ---
Date of Service July 18, 2018 Assessment & Plan (1) Pathological fracture of right hip: Pathologic fracture of the lesser trochanter, Patient will require palliative radiation post-operatively. Tentatively plan for prophylactic nailing today. This is not emergent however patient is to maintain non weight bearing on his right lower extremity due to impending fracture of the proximal femur at the level of the lesser trochanter. NPO Subjective Patient seen in room, states he is comfortable as far as his hip, denies sob, cp, n/v. Physical Exam Vital Signs (Past 24 Hours): Last Vital Signs Temp 36.6 C 07/18/18 07:57 Pulse 84 07/18/18 07:57 Resp 16 07/18/18 07:40 BP 118/66 07/18/18 07:57 Pulse Ox 98 07/18/18 07:57 Physical Exam: A&Ox3, right LE ER, toes and ankle mobile, ROM deferred, N/V+. (1) Pathological fracture of right hip Pathology associated with fracture: neoplastic disease
--- NOTE | 2018-07-18 10:58 | Consultation Report ---
DATE OF CONSULTATION: 07/17/2018 REPORT TITLE: Medical Oncology Consultation. REASON FOR CONSULTATION: Metastatic squamous cell carcinoma of the lung. HISTORY OF PRESENT ILLNESS: Mr. Bonner is a pleasant morbidly obese 77-year-old gentleman who was admitted to [facility] on 07/16/2018 after suffering a pathologic fracture of the right hip. Mr. Bonner has an original diagnosis of stage IB squamous cell carcinoma of the right lower lobe, status post lobectomy and mediastinal lymph node sampling performed by Dr. Liang in 03/2017. By current NCCN guidelines, the patient did not require chemotherapy and opted for observation. He had done well until recently and was found to have a right hilar and subcarinal mass consistent with recurrent lung cancer. Bronchoscopy was performed followed by ultrasound biopsy of the mediastinal nodes. The lymph nodes sampled were indeed negative. However, bronchial washings of the right middle lobe were positive for cells consistent with squamous cell carcinoma. PET CT scan performed for purposes of restaging revealed a 6 cm mass in the right hilar region, a 3 cm subcarinal mass, both with FDG uptake. It also revealed uptake in the right lesser trochanter. Plain films done on admission confirmed an avulsion fracture of the right lesser trochanter with lucency in the region of the right femoral neck. Orthopedics is on consultation and contemplating an intramedullary nail placement. I asked radiation oncology to also consult to provide palliative radiation therapy to the fracture site. Ultimately, Mr. Bonner is going to require chemotherapy; however, his current performance status prohibits an aggressive approach and his nutritional status needs to improve with albumin presently of 1.6. PAST MEDICAL HISTORY: Includes hypertension, gout, diabetes mellitus, benign prostatic hypertrophy, asthma, COPD, previous CVA, status post right lower lobectomy and history of early stage squamous cell carcinoma of the lung. MEDICATIONS: Prior to admission include albuterol inhaler q.i.d. p.r.n., allopurinol 300 mg p.o. daily, atorvastatin 40 mg p.o. daily, budesonide 0.25 mg inhaled b.i.d. p.r.n., carvedilol 3.125 mg p.o. b.i.d., cholecalciferol 2000 units p.o. daily, clopidogrel 75 mg p.o. daily, cyanocobalamin 1000 mcg p.o. daily, finasteride 5 mg p.o. daily, Perforomist 1 dose inhaled b.i.d. p.r.n., gabapentin 300 mg p.o. daily, insulin glargine 20 units subQ q.p.m., insulin lispro 4 units subQ a.c., ipratropium 1 puff inhaled q.i.d., levothyroxine 50 mcg p.o. daily, magnesium oxide 400 mg p.o. daily, Protonix 40 mg p.o. daily, paroxetine 10 mg p.o. daily, tamsulosin 0.4 mg p.o. daily. The patient was on Augmentin 1 tablet p.o. b.i.d., prednisone 40 mg p.o. b.i.d. ALLERGIES: MEPERIDINE, IV DYE, OXYCODONE, DOBUTAMINE AND PERFLUTREN. PAST SURGICAL HISTORY: Includes colectomy, inguinal hernia repair, cholecystectomy, lobectomy of the right lower lobe, status post right knee arthroplasty, status post total shoulder arthroplasty. SOCIAL HISTORY: The patient was employed in the [employer] industry. He is now retired. He reports a 10-year smoking history but quit back in the early 1970s. Negative for alcohol or illicit drugs. FAMILY HISTORY: Noncontributory. REVIEW OF SYSTEMS: Most notably for right lower extremity pain attributable to a pathologic fracture. The patient also reports anorexia and weight loss of about 20-25 pounds. SKIN: No rashes or lesions. No history of dermatoses. HEENT: He denies current headaches, lightheadedness or dizziness. He denies acute visual or hearing deficits. No sinus symptoms. No sore throat or dysphagia presently. LYMPHATICS: No history of lymphoproliferative disease. CARDIAC: No history of coronary artery disease, no angina or palpitations. PULMONARY: Positive for COPD. He is not acutely short of breath or dyspneic. He reports no hemoptysis or cough at present. GASTROINTESTINAL: Negative for abdominal pain, nausea, vomiting, diarrhea or constipation, hematochezia or melena stools. GENITOURINARY: He suffers from BPH. No current hematuria, dysuria, or urinary incontinence. MUSCULOSKELETAL: As per HPI. NEUROLOGIC: Positive for history of stroke. He has no history of migraine headache or seizure disorders. HEMATOLOGIC: Negative for anemia, thrombophilia or bleeding diathesis by history. PHYSICAL EXAMINATION: GENERAL: He is a very pleasant morbidly obese 77-year-old in no acute distress, answers questions appropriately. VITAL SIGNS: Temperature 37.1, pulse 84, respiratory rate 18, blood pressure 97/58. SKIN: Warm, dry, noncyanotic without petechia, rash or ecchymosis. HEAD: Atraumatic, normocephalic. EYES: PERRLA, EOMI. Sclerae nonicteric. No conjunctival injection. ENT: Nares are patent without rhinorrhea or discharge. Throat clear. Tongue midline. Mucous membranes are moist. NECK: Supple. Trachea is midline. LYMPHATICS: No cervical, supraclavicular or axillary palpable nodes. HEART: Regular rate and rhythm. No clicks, rubs, murmurs or gallops. LUNGS: Diminished breath sounds in the right posterior base. Otherwise, no appreciable rales or rhonchi. ABDOMEN: Obese, soft, nontender, nondistended without palpable hepatosplenomegaly. Bowel sounds are hypoactive. EXTREMITIES: No clubbing, cyanosis, or edema. Strength testing not done. Pulses are equal in all 4 quadrants. NEUROLOGICAL: He is awake, alert and oriented x3. Cranial nerves II through XII are grossly intact. LABORATORY DATA: WBC count 8650, hemoglobin 9.0, platelet count 152,000. Sodium 142, potassium 4.3, chloride 107, carbon dioxide 28, creatinine 1.1, BUN 21. His albumin presently is 1.6, total bilirubin slightly elevated at 1.1. IMPRESSION: 1. Metastatic non-small cell lung cancer (osseous metastasis) and recurrence within the mediastinum and hilum. 2. Pathologic fracture of right hip. 3. Altered mental status. 4. Asthma/chronic obstructive pulmonary disease. 5. Hypertension. 6. Hypothyroidism. 7. Type 2 diabetes mellitus. 8. Benign prostatic hypertrophy. PLAN: I had the pleasure of meeting Mr. Bonner and family members in his room to discuss therapeutic plans moving forward. The patient was diagnosed with early stage non-small cell lung cancer about a year ago, underwent lobectomy and appropriately was observed. Unfortunately, his disease has recurred and has spread to his right femur. Orthopedics plans on taking the patient to the operating room to stabilize the fractured femur. I asked radiation oncology to visit with Mr. Bonner and presume they will proceed with palliative radiation therapy. Currently, Mr. Bonner is not optimal to receive chemotherapy and I pointed out his marginal nutritional status that needs to improve. We will plan on reconvening with Mr. Bonner once he completes rehabilitation to discuss therapeutic options. I did not discuss specifics as it pertains to chemotherapy choices and would encourage Mr. Bonner to do what needs to be done to recover and I would be happy to discuss possible therapeutic options with him as an outpatient. Obviously, stage IV lung cancer carries a poor prognosis and again we will discuss the survival data when we reconvene. Thank you very much for allowing me to participate in his care. I have nothing further to add at this point and we will follow him periodically during his hospital stay. We will make arrangements for outpatient followup. PATRICIA
[2018-07-18] MEDS ORDERED: SODIUM CHLORIDE 0.9% 250 ML IV PRN (12:42)
--- NOTE | 2018-07-18 12:44 | Anesthesiology Consultation ---
Date of Service July 18, 2018 Assessment & Plan (1) Encounter for pre-operative examination: Chart Review Chart Review: Acceptable Risk for Surgery Consults Requested none ASA ASA4 Proposed Anesthesia Anesthesia Type: General (Pt states having plavix on Monday07/15/18) Risk / Benefits Reviewed With: PT / POA / Parent / Guardian, Accepts Plan and Informed Consent Obtained NPO Date Last Intake of Fluids: 07/18/18 Time Last Intake of Fluids: 08:00 Last Intake of Fluids Comment: sips wtih meds Date Last Intake of Solids: 07/17/18 Time Last Intake of Solids: 18:00 History Surgery Operation Date: 07/18/18 08:20 Proposed Procedures p Right Intramedullary Jaylon Tracy - Connor Torrez, Height/Weight Height: 5 ft 8 in Weight: 108.4 kg Allergies Allergy/AdvReac Type Severity Reaction Status Date / Time meperidine Allergy Severe ANAPHYLAXIS Unverified 07/18/18 12:27 Iodinated Contrast- Oral and Allergy Intermediate HIVES Unverified 07/18/18 12:27 IV Dye oxycodone Allergy Intermediate SHORTNESS Unverified 07/18/18 12:27 OF BREATH dobutamine AdvReac Unknown abd pain Unverified 07/18/18 12:27 perflutren AdvReac Unknown abd pain Unverified 07/18/18 12:27 Medications Home Medications Medication Instructions Recorded Confirmed Last Taken albuterol sulfate 2.5 mg INHALATION QID PRN 06/04/18 06/04/18 Unknown albuterol sulfate [ProAir HFA] 2 puff INHALATION Q6H PRN 06/04/18 06/04/18 Unknown allopurinol 300 mg PO DAILY 06/04/18 06/04/18 Unknown atorvastatin 40 mg PO PM 06/04/18 06/04/18 Unknown budesonide 0.25 mg INHALATION BID PRN 06/04/18 06/04/18 Unknown carvedilol 3.125 mg PO BID 06/04/18 06/04/18 Unknown cholecalciferol (vitamin D3) 2,000 unit PO DAILY 06/04/18 06/04/18 Unknown [Vitamin D3] clopidogrel 75 mg PO DAILY 06/04/18 06/04/18 Unknown cyanocobalamin (vitamin B-12) 1,000 mcg PO DAILY 06/04/18 06/04/18 Unknown finasteride 5 mg PO DAILY 06/04/18 06/04/18 Unknown formoterol fumarate [Perforomist] 1 dose INHALATION BID PRN 06/04/18 06/04/18 Unknown gabapentin 300 mg PO PM 06/04/18 06/04/18 Unknown insulin glargine U-300 conc 20 unit SUBCUT PM 06/04/18 06/04/18 Unknown [Toujeo SoloStar U-300 Insulin] insulin lispro [Humalog KwikPen 4 unit SUBCUT AC 06/04/18 06/04/18 Unknown Insulin] ipratropium-albuterol [Combivent 1 puff INHALATION QID 06/04/18 06/04/18 Unknown Respimat] levothyroxine 50 mcg PO DAILY 06/04/18 06/04/18 Unknown magnesium oxide 400 mg PO DAILY 06/04/18 06/04/18 Unknown pantoprazole 40 mg PO DAILY 06/04/18 06/04/18 Unknown paroxetine HCl 10 mg PO DAILY 06/04/18 06/04/18 Unknown tamsulosin 0.4 mg PO PM 06/04/18 06/04/18 Unknown amoxicillin-pot clavulanate 1 tab PO BIDM #6 tab 06/11/18 Unknown prednisone 40 mg PO BID #2 tab 06/11/18 Unknown Active Medications Generic Name Dose Route Start Last Admin Trade Name Freq PRN Reason Stop Dose Admin Albuterol 2.5 mg 07/16/18 23:13 07/18/18 07:40 Ventolin 0.083% 2.5mg/3ml INH 08/15/18 23:12 2.5 mg QID PRN Administration Shortness Of Breath Albuterol 1 puffs 07/17/18 09:00 07/18/18 12:01 Combivent Respimat INH 08/16/18 08:59 1 puffs QID YOGESH Administration Allopurinol 300 mg 07/17/18 09:00 07/18/18 08:25 Zyloprim PO 08/16/18 08:59 300 mg DAILY YOGESH Administration Atorvastatin Calcium 40 mg 07/17/18 21:00 07/17/18 20:56 Lipitor PO 08/16/18 20:59 40 mg PM YOGESH Administration Carvedilol 3.125 mg 07/17/18 09:00 07/18/18 08:25 Coreg PO 08/16/18 08:59 3.125 mg BID YOGESH Administration Finasteride 5 mg 07/17/18 09:00 07/18/18 08:26 Proscar PO 08/16/18 08:59 5 mg DAILY YOGESH Administration Gabapentin 300 mg 07/17/18 21:00 07/17/18 20:56 Neurontin PO 08/16/18 20:59 300 mg PM YOGESH Administration Gadobutrol 10 ml 07/18/18 00:25 07/17/18 23:57 Gadavist 65ml IV 07/22/18 00:24 10 ml ONCE PRN Administration Interaction Checking Acetaminophen 1,000 mg in 100 mls @ 400 mls/hr 07/16/18 23:16 07/18/18 10:57 Ofirmev IV 08/15/18 23:15 Infused Q8H PRN Infusion Pain or Fever Sodium Chloride 500 mls @ 50 mls/hr 07/18/18 10:15 07/18/18 10:52 Nss IV 08/17/18 10:14 50 mls/hr .Q10H YOGESH Administration Insulin Aspart 0 units 07/18/18 06:00 07/18/18 12:26 Novolog Flexpen SC 08/17/18 05:59 Not Given Q6 YOGESH Levothyroxine Sodium 50 mcg 07/17/18 06:30 07/18/18 06:28 Synthroid PO 08/16/18 06:29 50 mcg DAILYBB YOGESH Administration Losartan Potassium 50 mg 07/17/18 09:00 07/18/18 08:26 Cozaar PO 08/16/18 08:59 50 mg QAM YOGESH Administration Pantoprazole Sodium 40 mg 07/17/18 09:00 07/18/18 08:25 Protonix PO 08/16/18 08:59 40 mg DAILY YOGESH Administration Paroxetine HCl 10 mg 07/17/18 09:00 07/18/18 08:27 Paroxetine Hcl PO 08/16/18 08:59 10 mg DAILY YOGESH Administration Past Medical History Medical History Constipation Weakness (Acute) Pressure ulcer, sacrum (Acute) Lung mass (Acute) Hypertension (Chronic) Diabetes BPH (benign prostatic hyperplasia) Asthma (Chronic) COPD (chronic obstructive pulmonary disease) (Chronic) Carcinoma, lung COPD (chronic obstructive pulmonary disease) (Chronic) H/o hospitalization but no h/o intubation in the past Diabetes (Chronic) Liver cirrhosis Pneumonia 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 (UE and LE) Past Family History Family History Other No pertinent family history Past Surgical History Surgical History H/O colectomy H/O inguinal hernia repair S/P cholecystectomy S/P lobectomy of lung right lower lobe 04/2017 S/P total knee arthroplasty right Status post total shoulder arthroplasty Right 2018 Past Anesthesia History No Hx of Anesthesia Complications and No Family Hx of Anesthesia Complications History of PONV No Motion Sickness Screening History of Motion Sickness: No Social History Smoking Status: Former smoker (QUIT AT AGE 31, SMOKED FOR 17 YEARS) Hx Alcohol Use: No (05/21/1971 quit) Hx Substance Use: No Exercise / Class Metabolic Activity III < 4 Walking/Shop/Light housework Physical Exam Vital Signs Last Vital Signs Temp 97.6 F 07/18/18 11:37 Pulse 84 07/18/18 07:57 Resp 20 07/18/18 11:37 BP 118/66 07/18/18 11:37 Pulse Ox 98 07/18/18 11:37 ENMT Mouth: + edentulous; motion of mouth not restricted and no dentition abnormality Thyromental Distance: > or= 3.5 Finger Breadths Mallampati Class: I Neck normal visual inspection Respiratory normal respiratory effort Auscultation: + diminished lung sounds; + lungs not clear to auscultation Cardiovascular Rate/Rhythm: regular rate and regular rhythm Testing Electrocardiogram Date: 07/17/18 Sinus rhythm with occasional Premature ventricular complexes, rate 75 bpm Otherwise normal ECG When compared with ECG of 04-JUN-2018 12:14, Premature atrial complexes are no longer Present T wave inversion no longer evident in Lateral leads QT has shortened Chest X-Ray Date: 07/17/18 1. Cardiomegaly without acute process. 2. Unchanged small right pleural effusion with right basilar consolidation and right perihilar densities. Echocardiogram Date: 10/18/16 EF: 60-64% LV Function: normal RWMA: + none Other Findings: + LVH (Mild CLVH) and + diastolic dysfunction (gr I) Stress Test Date: 10/25/16 Type: nuclear Findings: + WNL Resting EF: 63% Resting LV Function: normal Resting RWMA: + none Laboratory Results 07/16/18 23:17 07/16/18 23:17 PT 12.7 Seconds (9.0-12.0) H 07/16/18 23:17 INR 1.3 (0.9-1.1) H 07/16/18 23:17 07/18/18 07/18/18 11:59 05:55 POC Glucose 104 H 102 H
[2018-07-18] MEDS ORDERED: PROPOFOL IV EMULSION 10 MG/ML 20 ML VIAL IV ONE (12:46)
[2018-07-18] MEDS ORDERED: LIDOCAINE HCL 2% 2 ML VIAL/AMP(20MG/ML) INFIL ONE (12:46)
[2018-07-18] MEDS ORDERED: fentaNYL citrate 100 MCG/2 ML VIAL ONE ×2 (12:47→14:15)
[2018-07-18] MEDS ORDERED: KETAMINE HCL INJ 50 MG/ML 10 ML VIAL ONE (12:47)
[2018-07-18] MEDS ORDERED: MIDAZOLAM HCL 1 MG/ML 2ML VIAL ONE (12:47)
[2018-07-18] MEDS ORDERED: SODIUM CHLORIDE 0.9% INJ 10 ML VIAL ONE (12:48)
[2018-07-18] MEDS ORDERED: ONDANSETRON INJ 2 MG/ML 2 ML VIAL ONE (12:48)
[2018-07-18] MEDS ORDERED: DEXAMETHASONE SOD INJ 4 MG/ML VIAL ONE (12:48)
[2018-07-18] MEDS ORDERED: ATROPINE SULFATE 0.1 MG/ML 10ML SYR IV PRN (12:51)
[2018-07-18] MEDS ORDERED: ePHEDrine sulfate 50 MG/ML AMP IV PRN (12:51)
[2018-07-18] MEDS ORDERED: ONDANSETRON INJ 2 MG/ML 2 ML VIAL IV PRN (12:51)
--- NOTE | 2018-07-18 13:20 | History & Physical Bridge Note ---
Date of Service July 18, 2018 History & Physical Bridge Note I have examined the patient, reviewed the History & Physical and in the interval since the performance of the History & Physical I have noted the following changes of clinical significance: no changes noted
[2018-07-18] MEDS ORDERED: CEFAZOLIN 2,000 MG/15 ML IV PUSH IV ONE (13:21)
[2018-07-18] MEDS ORDERED: CEFAZOLIN 2000MG 2,000 MG/15 ML SYR IV SCH (13:30)
[2018-07-18] MEDS ORDERED: PHENYLEPHRINE 100MCG/ML 5ML SYR ONE (14:14)
--- NOTE | 2018-07-18 15:04 | Operative Report ---
Post Operative Report Pre & Post Diagnosis Operation Date: 07/18/18 08:20 Pre-Op Diagnosis: Pathologic Fracture Right Proximal Femur Post-Op Diagnosis: Pathologic Fracture Right Proximal Femur Procedure Operation Date: 07/18/18 08:20 Actual Procedures p Intramedullary Nailing Right Femur(Right) utilizing Synthes 360 x 11 croak nail 110 helical blade 52 mm distal locking screw- Connor Torrez DO Surgeon Connor Torrez DO Automotive Tire Technician None Estimated Blood Loss 15 Findings Consistent with Post-Op Diagnosis Patient presents with a lesser trochanteric avulsion and a pathologic fracture of the proximal femur anatomic position intraoperative findings were noted is the same reamings were sent from the proximal femur Specimens Reamings from proximal femur Complications none Disposition Accompanied Patient To Recovery: No Disposition: Recovery Room Indications Patient presents with a painful pathologic fracture right proximal femur with lesser trochanteric fracture for IM rodding troponin nail stabilization Description of Procedure After proper prepping and draping placed on the floor fluoroscopy table with the fracture table the fracture was maintained in anatomic position both AP and lateral planes with fluoroscopic guidance utilizing a standard cee nail technique and incision made over the region of the proximal aspect of the proximal trochanteric femur and IM guide was alignment cathie was placed subsequently the femur was reamed successively to a size 12.5 with chatter at the isthmus the reamings were sent for pathology evaluation a 360 cathie was measured with the appropriate length was subsequently placed the helical blade was placed into the proximal femur through the cathie in standard technique the distal femoral screw was placed 4 locking under direct visualization utilizing perfect [place] technique with radiolucent drill guide was irrigated with copious amounts of sterile saline solution fluoroscopic evaluation revealed the fracture proximal femur to be in anatomic position wound was irrigated the deep fascia closed #1 Vicryl subcu was closed with 2-0 Vicryl skin was closed skin clips sterile compressive dressing was placed the patient was taken recovery in stable condition is operative or dictated by Shan. I attest to the content of the Intraoperative Record and any orders documented therein. Any exceptions are noted below.
--- NOTE | 2018-07-18 15:12 | Fluoroscopy Report ---
FL hip RT 2-3V CLINICAL HISTORY: RT TROCH NAIL FOR FX COMPARISON STUDY: None FLUOROSCOPY TIME: 2 minutes 49 seconds NUMBER OF FLUOROSCOPIC IMAGES: 6 FINDINGS: Successful intertrochanteric nailing of the right hip. Successful intramedullary cathie placem ent. IMPRESSION: Anatomic alignment post right fixation and right hip nailing procedure. The above report was generated using voice recognition software. It may contain grammatical, syntax or spelling errors. Electronically signed by: Yayo Reyes M.D. 07/18/2018 3:11 PM
[2018-07-18] MEDS ORDERED: METOPROLOL TARTRATE 1 MG/ML VIAL IV STA ×2 (15:34→16:46)
[2018-07-18] MEDS ORDERED: METOPROLOL TARTRATE 1 MG/ML VIAL IV ONE (15:38)
[2018-07-18] MEDS: fentaNYL citrate 100 MCG/2 ML VIAL IV PRN ×2 (15:51→15:56)
--- NOTE | 2018-07-18 15:53 | Anesthesiology Progress Note ---
Date of Service July 18, 2018 Anesthesia Post Procedure Vital Signs Vital Signs: Temp Pulse Pulse Pulse Resp BP BP 07/18/18 15:46 144 H 134/91 07/18/18 15:35 124 H 22 102/87 07/18/18 15:30 121 H 15 124/94 07/18/18 15:25 132 H 21 124/92 07/18/18 15:22 126 H 22 93/71 L 07/18/18 15:20 132 H 18 07/18/18 15:15 93 H 17 111/87 07/18/18 15:12 121 H 16 07/18/18 15:10 67 17 105/69 07/18/18 15:09 36.5 C 128 H 68 17 120/67 120/67 07/18/18 15:08 71 16 07/18/18 11:37 36.4 C 20 118/66 07/18/18 07:57 36.6 C 84 118/66 07/18/18 07:40 83 16 07/17/18 22:21 37.1 C 84 18 97/58 L Pulse Ox 07/18/18 15:46 07/18/18 15:35 100 07/18/18 15:30 100 07/18/18 15:25 100 07/18/18 15:22 96 07/18/18 15:20 100 07/18/18 15:15 100 07/18/18 15:12 100 07/18/18 15:10 100 07/18/18 15:09 100 07/18/18 15:08 100 07/18/18 11:37 98 07/18/18 07:57 98 07/18/18 07:40 98 07/17/18 22:21 98 Pain Intensity Right Hip: Pain Intensity: 0 Notes Mental Status: alert / awake / arousable and participated in evaluation Patient Amnestic to Procedure: Yes Nausea / Vomiting: adequately controlled Pain: adequately controlled Airway Patency, RR, SpO2: stable & adequate BP & HR: see Notes below Hydration State: stable & adequate Anesthetic Complications: no major complications apparent and Pt Satisfied with anesthetic care Notes: Mr. Bonner has no reported history of A fib on chart review (no mention of this on cardiology consult yesterday 07/17/18) but was noted to be going in and out of A fib with RVR in the PACU (no reported incidents of this during the operative procedure). Ordered a STAT ECG and first ECG showed sinus rhythm but he quickly went back into A fib with RVR and this was capture on ECG as well. I called his primary hospitalist team, Dr. Mayito Devries, and made him aware of the situation. We both agreed that patient should be transferred to the telemetry unit (he stated he would order the transfer) and we would treat with a small dose of metoprolol here in PACU (2.5mg IV push). Patient is awake and conversant and denies chest pain currently. BP at time of metoprolol was given was 142/91. Shortly after metoprolol was given patient again went back into sinus rhythm. Dr. Devries stated he would see the patient in telemetry after he was transferred out of recovery. call center recruiter anesthesiologist was made aware of situation.
[2018-07-18] MEDS ORDERED: Nursing to Pharmacy Communication ONE (17:14)
[2018-07-18] MEDS: MoRPHine SULFATE 4 MG/ML 1 ML CARP\\VIAL IV PRN ×2 (17:21→22:08)
--- NOTE | 2018-07-18 17:48 | Cardiology Progress Note ---
Date of Service July 18, 2018 Assessment & Plan (1) Atrial flutter: EKG and telemetry reveals atrial flutter with rapid ventricular response, 2:1 atrioventricular conduction. Patient's blood pressure is relatively low, with readings anywhere from a systolic of 102 upwards to 125. Typically AV xochitl blockers are not very effective in terms of rate and rhythm control for atrial flutter, and I think our best bet is to try to chemically cardiovert him as we know that he just went in this several hours ago during the operation, having been in sinus rhythm yesterday. We will proceed with an amiodarone infusion. This of course is not a long-term ideal medication for him because of his significant underlying lung disease. But I think it is reasonable to use it in a short-term postoperatively to try to alleviate tachycardia. In terms of stroke prophylaxis, the patient has underlying anemia with hemoglobin of 8.6 last month and 9 on presentation yesterday. He has a known lung mass, and I am concerned about bleeding complications. We will therefore hold off on systemic anticoagulation at present. (2) Pathological fracture of right hip: s/p surgical intervention. Subjective Chief complaint: Postop cardiology follow-up Subjective: Patient seen on the telemetry floor, room 217, after repair of right hip fracture. He is tachycardic, and post procedure EKG revealed the presence of atrial flutter with rapid ventricular response. Currently on telemetry his ventricular rate is 122 bpm. The patient is asymptomatic from a tachycardia standpoint. He describes pain at his operative site. Most recent blood pressure was 125/77. Physical Exam Vital Signs (Past 24 Hours): Last Vital Signs Temp 36.3 C L 07/18/18 16:28 Pulse 135 H 07/18/18 17:12 Resp 22 07/18/18 16:20 BP 125/77 07/18/18 17:12 Pulse Ox 96 07/18/18 16:28 Constitutional: + ill appearing Respiratory: normal respiratory effort, lungs clear to auscultation Cardiovascular: Rate/Rhythm: regular rate and + tachycardic Heart Sounds: no murmur Extremities: no edema Gastrointestinal (Abdomen): Percussion/Palpation: abdomen soft; abdomen nontender and no guarding Skin: no rashes, warm and dry Neurologic: No focal deficits (1) Pathological fracture of right hip Pathology associated with fracture: neoplastic disease
[2018-07-18] MEDS ORDERED: AMIODARONE IV BOLUS / DRIP IV STA (17:52)
[2018-07-18] MEDS ORDERED: AMIODARONE / D5W 360 MG/200 ML BAG IV SCH (18:15)
[2018-07-18] MEDS ORDERED: AMIODARONE / D5W 150 MG/100 ML BAG IV ONE (18:15)
--- NOTE | 2018-07-18 18:47 | Hospitalist Progress Note ---
Date of Service July 18, 2018 Assessment & Plan (1) Pathological fracture of right hip: (2) Hypertension: (3) Gout: (4) Diabetes: (5) BPH (benign prostatic hyperplasia): (6) Asthma: (7) COPD (chronic obstructive pulmonary disease): (8) CVA (cerebral vascular accident): (9) Change in mental status: (10) S/P lobectomy of lung: (11) Right lower lobe lung mass: (12) Hypothyroid: (13) Neuropathy: (14) DVT prophylaxis: 77-year-old male admitted on July 16, 2018 because of pelvic pain, pathological fracture of right hip: CT of the pelvis demonstrated an acute pathologic fracture of the right lesser trochanter with associated lytic bone lesion, consistent w/metastatic disease. ortho consulted, chronic prophylaxis nail today cardiology consulted for preop clearance , -NPO -Stress nuclear imaging from 2017 shows normal LV systolic function - consulted Dr. Orantes who patient was to establish with for oncology History of A. fib, postop conveyor monitor if needed Here hypertension, gout, BPH, asthma, COPD, CVA, diabetic, continue current care, Right lower lobe lung mass: Negative with metastasis to the pelvic, need to To readdress about the goal of care, Possible consider palliative care consult talked to patient and son, DVT prophylaxis will discuss with orthopedic team Subjective Doing fair, no complaint, reported pelvic pain when inquiring, Denies fever chills, But did reported generalized weakness No nausea vomiting abdominal pain diarrhea constipation Denies cough and sputum, Denies chest pain Physical Exam Vital Signs (Past 24 Hours): Last Vital Signs Temp 36.3 C L 07/18/18 16:28 Pulse 135 H 07/18/18 17:12 Resp 22 07/18/18 16:20 BP 125/77 07/18/18 17:12 Pulse Ox 96 07/18/18 16:28 Physical Exam: General Appearance: Chronically ill looking, decreased hearing, WD/WN, no apparent distress, Eyes: normal inspection, PERRL, EOMI, sclerae normal ENT: normal ENT inspection, hearing grossly normal, pharynx normal Neck: supple, no adenopathy, thyroid normal, no JVD, no carotid bruits, trachea midline Respiratory/Chest: Decreased breathing sounds bilaterally, occasional wheezing, chest non-tender, Cardiovascular: irregular rate, rhythm, no JVD, no murmur Abdomen: normal bowel sounds, non tender, soft, no organomegaly, Extremities: normal inspection, no pedal edema, no calf tenderness, normal capillary refill, pelvis stable, Neurologic/Psychiatric: timber rider II-XII nml as tested, no motor/sensory deficits, alert, normal mood/affect, oriented x 3 Skin: normal color, warm/dry, no rash Lymphatic: no adenopathy Results & Data Laboratory Results Laboratory Results - last 24 hr 07/17/18 07/18/18 07/18/18 20:40 00:27 05:55 POC Glucose 115 H 103 H 102 H 25-OH Vitamin D Total Blood Type Antibody Screen Crossmatch 07/18/18 07/18/18 07/18/18 11:59 12:52 15:19 POC Glucose 104 H 103 H 25-OH Vitamin D Total Blood Type A Negative Antibody Screen NEGATIVE Crossmatch See Detail 07/18/18 07/18/18 16:39 16:54 POC Glucose 112 H 25-OH Vitamin D Total 59.6 Blood Type Antibody Screen Crossmatch (1) Pathological fracture of right hip Pathology associated with fracture: neoplastic disease
[2018-07-18] MEDS: TAMSULOSIN HCL 0.4 MG CAP PO SCH (20:59)
[2018-07-18] MEDS: ATORVASTATIN 40 MG TAB PO SCH (21:00)
[2018-07-18] MEDS: GABAPENTIN 300 MG CAP PO SCH (21:00)
[2018-07-18] MEDS: CEFAZOLIN 2000MG 2,000 MG/15 ML SYR IV SCH (22:08)
[2018-07-18] MEDS: AMIODARONE / D5W 360 MG/200 ML BAG IV SCH (23:51)
[2018-07-19] MEDS: MoRPHine SULFATE 4 MG/ML 1 ML CARP\\VIAL IV PRN ×3 (03:47→17:31)
[2018-07-19] MEDS: LEVOTHYROXINE SODIUM 50 MCG TABLET PO SCH (06:02)
[2018-07-19] MEDS: CEFAZOLIN 2000MG 2,000 MG/15 ML SYR IV SCH (06:02)
[2018-07-19 06:15] LABS: Basophils # (auto) 0.01 K/uL (0-0.2); Basophils % (auto) 0.1 %; Hematocrit (blood only) 30.9 % (42-52); Hemoglobin 9.7 g/dL (14.0-18.0); Immature Granulocytes # (auto) 0.07 K/uL (0.00-0.02); Immature Granulocytes % (auto) 0.7 %; Lymphocytes # (auto) 0.89 K/uL (1.2-3.4); Mean Corpuscular Hgb Conc 31.4 g/dL (32-36); Mean Corpuscular Volume 80.7 fL (80-100); Mean Platelet Volume 8.6 fL (7.4-10.4); Monocytes % (auto) 5.1 %; Neutrophils # (auto) 8.43 K/uL (1.4-6.5); Neutrophils % (auto) 85.1 %; Platelet Count 176 K/uL (130-400); RDW Coefficient of Variation 19.4 % (11.5-14.5); RDW Standard Deviation 56.8 fL (36.4-46.3); Red Blood Count 3.83 M/uL (4.7-6.1)
[2018-07-19 06:59] LABS: BUN Creatinine Ratio 27.1 (10-20); Calcium 8.6 mg/dl (8.5-10.1); Creatinine Clr Calc Pharmacy 71.4 ml/min; Est GFR (African American) 79.5; Est GFR (Non-African American) 68.6; Magnesium 1.7 mg/dl (1.8-2.4); Potassium 4.5 mmol/L (3.5-5.1)
[2018-07-19] MEDS: ACETAMINOPHEN 1,000 MG/100 ML VIAL IV PRN (07:41)
[2018-07-19] MEDS: IPRATROPIUM BROMIDE/ALBUTEROL respimat INH INH SCH ×4 (07:42→20:30)
[2018-07-19] MEDS: LOSARTAN POTASSIUM 50 MG TAB PO SCH (07:43)
[2018-07-19] MEDS: CARVEDILOL 3.125 MG TAB PO SCH (07:43)
[2018-07-19] MEDS: ALLOPURINOL 300 MG TAB PO SCH (07:44)
[2018-07-19] MEDS: PARoxetine HCl 10 MG TAB PO SCH (07:44)
[2018-07-19] MEDS: FINASTERIDE 5 MG TAB PO SCH (07:44)
[2018-07-19] MEDS: PANTOprazole 40 MG TAB PO SCH (07:44)
[2018-07-19] MEDS: INSULIN ASPART 100 UNITS/ML 3 ML PEN SC SCH ×4 (07:45→20:32)
[2018-07-19] MEDS ORDERED: MAGNESIUM SULFATE / D5W 1 GM/100 ML BAG IV ONE (09:15)
--- NOTE | 2018-07-19 09:46 | Progress Note ---
DATE: 07/19/2018 MEDICAL ONCOLOGY PROGRESS NOTE DIAGNOSES: 1. 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 2. Pathologic fracture, right hip. 3. Asthma/chronic obstructive pulmonary disease. 4. Hypertension. 5. Hypothyroidism. 6. Type 2 diabetes mellitus. SUBJECTIVE: Mr. Bonner is a morbidly obese 77-year-old gentleman seen this morning at bedside. He underwent intramedullary nailing by the orthopedic service yesterday. Appreciate radiation oncology's input and plans to move forward with palliative XRT to the fracture site. Mr. Bonner continues to have some post-procedural discomfort which is not unexpected. He is tolerating his diet; however, has not moved his bowels nor risen from bed to any great degree. As I previously stated, his nutritional status is quite poor and needs to work on increased protein intake. Nursing reports no overnight difficulties otherwise. OBJECTIVE: GENERAL: Morbidly obese 77-year-old gentleman, awake, alert and appropriate, in no acute distress. VITAL SIGNS: Temperature 36.7, pulse is 68, respiratory rate 18, blood pressure 99/63. SKIN: Warm, dry, noncyanotic without rash. HEENT: Oral mucosa without erythema or ulceration. NECK: Supple. Trachea midline. HEART: Regular rate and rhythm. LUNGS: Clear to auscultation bilaterally. ABDOMEN: Soft, nontender, nondistended. EXTREMITIES: Trace peripheral edema, bilateral lower extremities. NEUROLOGIC: Grossly intact. LABORATORY DATA: WBC count 9900, hemoglobin 9.7, platelet count 176. Glucose 171. Magnesium slightly decreased at 1.7. IMPRESSION: 1. Metastatic non small cell Ca. 5. Hypertension. 6. Hypothyroidism. 7. Type 2 diabetes mellitus. PLAN: I had the pleasure of visiting with Mr. Bonner again this morning. He underwent an intramedullary nailing of the right femur yesterday. Radiation oncology is on board and plans to proceed with palliative radiation therapy. Perhaps recommend nutritional consult to work on his protein imbalance. Again, my plan is to see Mr. Bonner once he completes the rehabilitative process and discuss salvage treatment options. I have nothing further to add at this time. We will continue to follow him periodically during his hospital stay. Thank you very much for allowing me to participate in his care. PATRICIA
[2018-07-19] MEDS: MAGNESIUM OXIDE 400 MG TAB PO SCH ×2 (09:49→20:31)
--- NOTE | 2018-07-19 11:36 | Anesthesiology Progress Note ---
Date of Service July 19, 2018 Anesthesia Post Procedure Vital Signs Vital Signs: Temp Pulse Pulse Pulse Resp BP BP 07/19/18 11:16 37.0 C 60 16 07/19/18 10:45 07/19/18 09:06 07/19/18 06:54 36.7 C 68 18 99/63 L 07/19/18 04:00 35.5 C L 74 16 07/18/18 22:43 36.4 C L 68 16 99/65 L 07/18/18 20:42 68 17 07/18/18 19:45 123 H 18 07/18/18 19:16 36.4 C L 123 H 16 109/66 07/18/18 18:45 123 H 18 07/18/18 17:45 64 17 07/18/18 17:15 130 H 19 07/18/18 17:12 135 H 125/77 07/18/18 16:45 126 H 18 07/18/18 16:30 81 17 07/18/18 16:28 36.3 C L 07/18/18 16:20 132 H 22 107/81 07/18/18 16:15 69 73 17 120/66 07/18/18 16:10 128 H 16 102/75 07/18/18 16:05 70 19 119/66 07/18/18 16:01 67 17 107/86 07/18/18 16:00 129 H 81 18 104/71 07/18/18 15:58 65 17 119/63 07/18/18 15:56 64 22 07/18/18 15:55 120 H 19 07/18/18 15:50 66 16 142/91 H 07/18/18 15:46 144 H 134/91 07/18/18 15:45 143 H 18 134/91 07/18/18 15:40 84 17 134/82 07/18/18 15:35 124 H 22 102/87 07/18/18 15:30 121 H 15 124/94 07/18/18 15:25 132 H 21 124/92 07/18/18 15:22 126 H 22 93/71 L 07/18/18 15:20 132 H 18 07/18/18 15:15 93 H 17 111/87 07/18/18 15:12 121 H 16 07/18/18 15:10 67 17 105/69 07/18/18 15:09 36.5 C 128 H 68 17 120/67 120/67 07/18/18 15:08 71 16 07/18/18 11:37 36.4 C 20 118/66 BP Pulse Ox 07/19/18 11:16 92/55 L 97 07/19/18 10:45 94 07/19/18 09:06 95 07/19/18 06:54 84 L 07/19/18 04:00 95/61 L 95 07/18/18 22:43 97 07/18/18 20:42 115/72 100 07/18/18 19:45 109/66 100 07/18/18 19:16 100 07/18/18 18:45 121/69 100 07/18/18 17:45 116/74 100 07/18/18 17:15 118/76 100 07/18/18 17:12 07/18/18 16:45 98/64 L 100 07/18/18 16:30 124/74 99 07/18/18 16:28 96 07/18/18 16:20 99 07/18/18 16:15 125/77 100 07/18/18 16:10 100 07/18/18 16:05 100 07/18/18 16:01 100 07/18/18 16:00 99 07/18/18 15:58 100 07/18/18 15:56 100 07/18/18 15:55 100 07/18/18 15:50 100 07/18/18 15:46 07/18/18 15:45 100 07/18/18 15:40 100 07/18/18 15:35 100 07/18/18 15:30 100 07/18/18 15:25 100 07/18/18 15:22 96 07/18/18 15:20 100 07/18/18 15:15 100 07/18/18 15:12 100 07/18/18 15:10 100 07/18/18 15:09 100 07/18/18 15:08 100 07/18/18 11:37 98 Pain Intensity Right Hip: Pain Intensity: 7 Notes Mental Status: alert / awake / arousable and participated in evaluation Patient Amnestic to Procedure: Yes Nausea / Vomiting: adequately controlled Pain: adequately controlled Airway Patency, RR, SpO2: stable & adequate BP & HR: stable & adequate Hydration State: stable & adequate Anesthetic Complications: no major complications apparent and Pt Satisfied with anesthetic care
--- NOTE | 2018-07-19 13:39 | Cardiology Progress Note ---
Date of Service July 19, 2018 Assessment & Plan (1) Atrial flutter: Telemetry reviewed. Sustained AFL to SR overnight with episodes of SR with frequent PACs. No past h/o AF or AFL. Now SR, on amiodarone infusion. Mg was 1.7 this am and has been replaced. Will discontinue IV amiodarone. BP marginal. Will DC coreg and transition to metoprolol for better rhythm effects. Poor candidate for anticoagulation, given bleeding risk. (2) Pathological fracture of right hip: Recurrent lung CA with bone metastasis. s/p surgical intervention of R hip. Hbg stable. Subjective CC: follow up atrial flutter Subjective: patinet resting comfortably.SB noted on telemetry at present. Physical Exam Vital Signs (Past 24 Hours): Last Vital Signs Temp 37.0 C 07/19/18 11:16 Pulse 60 07/19/18 11:16 Resp 16 07/19/18 11:16 BP 92/55 L 07/19/18 11:16 Pulse Ox 97 07/19/18 11:16 Constitutional: no acute distress Respiratory: no cough Auscultation: no crackles, no rales and no wheezes Cardiovascular: Rate/Rhythm: regular rate and regular rhythm Heart Sounds: no murmur Results & Data Laboratory Results CBC 07/19/18 Range/Units 05:47 WBC 9.90 (4.8-10.8) K/uL RBC 3.83 L (4.7-6.1) M/uL Hgb 9.7 L (14.0-18.0) g/dL Hct 30.9 L (42-52) % Plt Count 176 (130-400) K/uL Neut # (Auto) 8.43 H (1.4-6.5) K/uL Lymph # (Auto) 0.89 L (1.2-3.4) K/uL Schuyler # (Auto) 0.50 (0.11-0.59) K/uL Eos # (Auto) 0.00 (0-0.5) K/uL Baso # (Auto) 0.01 (0-0.2) K/uL Comprehensive Metabolic Panel 07/19/18 Range/Units 05:47 Sodium 139 (136-145) mmol/L Potassium 4.5 (3.5-5.1) mmol/L Chloride 107 (98-107) mmol/L Carbon Dioxide 23 (21-32) mmol/L BUN 28 H (7-18) mg/dl Creatinine 1.05 (0.6-1.4) mg/dl Glucose 171 H (70-99) mg/dl Calcium 8.6 (8.5-10.1) mg/dl Intake and Output 07/18/18 07/19/18 07/19/18 22:59 06:59 14:59 Intake Total 1794.167 / 2394.167 500 / 2394.167 200 / 200 Output Total 300 / 800 200 / 800 Balance 1494.167 / 1594.167 300 / 1594.167 200 / 200 Intake: IV 654.167 / 1254.167 500 / 1254.167 200 / 200 OFIRMEV 1,000 mg In 100 ml @ 100 / 200 100 / 100 400 mls/hr IV Q8H PRN Rx#: [id number] NEXTERONE / D5W 150 mg In 100 100 / 100 ml @ 600 mls/hr IV TODAY@1815 ONE Rx#:[id number] MAGNESIUM SULFATE / D5W 1 gm In 100 / 100 100 ml @ 100 mls/hr IV ONE ONE Rx#:[id number] Nss 500 ml @ 50 mls/hr IV .Q10H 454.167 / 954.167 500 / 954.167 [facility] Rx#:[id number] IV Perioperative 900 / 900 Oral 240 / 240 Output: Urine Amount (Catheter) 300 / 800 200 / 800 Briggs/Indwelling 300 / 800 200 / 800 Medications Administered Current Inpatient Medications Albuterol (Proair Hfa) 2 puffs INH Q6H PRN PRN Reason: Shortness Of Breath Albuterol (Ventolin 0.083% 2.5mg/3ml) 2.5 mg INH QID PRN PRN Reason: Shortness Of Breath Stop: 08/15/18 23:12 Last Admin: 07/18/18 07:40 Dose: 2.5 mg Documented by: Albuterol (Combivent Respimat) 1 puffs INH QID [facility] Stop: 08/16/18 08:59 Last Admin: 07/19/18 12:07 Dose: 1 puffs Documented by: Allopurinol (Zyloprim) 300 mg PO DAILY [facility] Stop: 08/16/18 08:59 Last Admin: 07/19/18 07:44 Dose: 300 mg Documented by: Atorvastatin Calcium (Lipitor) 40 mg PO PM YOGESH Stop: 08/16/18 20:59 Last Admin: 07/18/18 21:00 Dose: 40 mg Documented by: Carvedilol (Coreg) 3.125 mg PO BID YOGESH Stop: 08/16/18 08:59 Last Admin: 07/19/18 07:43 Dose: 3.125 mg Documented by: Dextrose (Dextrose 50%) 25 - 50 ml IV UD PRN; Protocol PRN Reason: Hypoglycemia Protocol Stop: 08/15/18 23:12 Finasteride (Proscar) 5 mg PO DAILY YOGESH Stop: 08/16/18 08:59 Last Admin: 07/19/18 07:44 Dose: 5 mg Documented by: Formoterol Fumarate (Perforomist) 20 mcg INH BID PRN PRN Reason: Shortness Of Breath Stop: 08/15/18 23:12 Gabapentin (Neurontin) 300 mg PO PM YOGESH Stop: 08/16/18 20:59 Last Admin: 07/18/18 21:00 Dose: 300 mg Documented by: Gadobutrol (Gadavist 65ml) 10 ml IV ONCE PRN PRN Reason: Interaction Checking Stop: 07/22/18 00:24 Last Admin: 07/17/18 23:57 Dose: 10 ml Documented by: Glucagon (Glucagen) 1 mg SQ UD PRN; Protocol PRN Reason: Hypoglycemia Protocol Stop: 08/15/18 23:12 Glucose (Glucose 40%) 15 - 30 gm PO UD PRN; Protocol PRN Reason: Hypoglycemia Protocol Stop: 08/15/18 23:12 Glucose (Dex4 Glucose) 4 - 8 tabs PO UD PRN; Protocol PRN Reason: Hypoglycemia Protocol Stop: 08/15/18 23:12 Acetaminophen (Ofirmev) 1,000 mg in 100 mls @ 400 mls/hr IV Q8H PRN PRN Reason: Pain or Fever Stop: 08/15/18 23:15 Last Infusion: 07/19/18 07:56 Dose: Infused Documented by: Sodium Chloride (Nss) 500 mls @ 50 mls/hr IV .Q10H YOGESH Stop: 08/17/18 10:14 Last Infusion: 07/19/18 06:03 Dose: Infused Documented by: Amiodarone HCl/Dextrose (Nexterone / D5w) 360 mg in 200 mls @ 16.667 mls/hr IV .Q12H YOGESH Stop: 08/18/18 00:14 Last Admin: 07/18/18 23:51 Dose: 0.5 mg/min, 16.7 mls/hr Documented by: Insulin Aspart (Novolog Flexpen) 0 units SC ACHS YOGESH Stop: 08/17/18 20:59 Last Admin: 07/19/18 12:05 Dose: 6 units Documented by: Levothyroxine Sodium (Synthroid) 50 mcg PO DAILYBB YOGESH Stop: 08/16/18 06:29 Last Admin: 07/19/18 06:02 Dose: 50 mcg Documented by: Losartan Potassium (Cozaar) 50 mg PO QAM YOGESH Stop: 08/16/18 08:59 Last Admin: 07/19/18 07:43 Dose: 50 mg Documented by: Magnesium Oxide (Mag-Ox) 400 mg PO BID YOGESH Stop: 08/18/18 08:59 Last Admin: 07/19/18 09:49 Dose: 400 mg Documented by: Miscellaneous (Carbohydrates For Hypoglycemia) 15 - 30 gm PO UD PRN PRN Reason: Hypoglycemia Treatment Stop: 08/15/18 23:12 Morphine Sulfate (Morphine Sulfate) 2 mg IV Q4 PRN PRN Reason: Pain Stop: 08/01/18 17:11 Last Admin: 07/19/18 08:27 Dose: 2 mg Documented by: Pantoprazole Sodium (Protonix) 40 mg PO DAILY YOGESH Stop: 08/16/18 08:59 Last Admin: 07/19/18 07:44 Dose: 40 mg Documented by: Paroxetine HCl (Paroxetine Hcl) 10 mg PO DAILY YOGESH Stop: 08/16/18 08:59 Last Admin: 07/19/18 07:44 Dose: 10 mg Documented by: Tamsulosin HCl (Flomax) 0.4 mg PO PM YOGESH Stop: 08/16/18 20:59 Last Admin: 07/18/18 20:59 Dose: 0.4 mg Documented by: (1) Pathological fracture of right hip Pathology associated with fracture: neoplastic disease
--- NOTE | 2018-07-19 14:53 | Palliative Care Consultation ---
Date of Consultation July 19, 2018 Assessment & Plan (1) Goals of care, counseling/discussion: -77 year old male patient with PMH htn, COPD, asthma, BPH, lung mass s/p RLL lobectomy in 04/2017, and others, presented from [facility] with pathologic fracutre of right femur due to metastatic disease. This patient was found to have a lung mass back in 2017, shown to be squamous cell, underwent RLL lobectomy with Dr. Liang and was followed with observation. Unfortunately, he was found to have right subcarinal and hilar mass consistent with recurrent malignancy. He underwent PET/CT scan which showed metastatic disease and FDG avid right femur lesion. He then developed severe right leg pain and was found to have a pathologic fracture. He was sent here for orthopedic surgery. Underwent surgical nailing on 07/18/18 and is recovering in PCU. He will require acute inpatient rehab after hospitalization. Patient lives home alone, is currently full code. Dr. Orantes was consulted and stated that patient will eventually need chemotherapy, but his current performance status is too poor. He also has a poor nutritional status with albumin 1.6. Radiation oncology was consulted and does plan to offer palliative XRT to the right leg once he is recovered from surgery as well. Palliative care is consulted to establish goals of care. -Met with patient in room 217. No family at bedside. patient is awake, alert and oriented x4. He does c/o pain 8/10 in right leg when moving. He appears comfortable when not moving. He is ordered PRN morphine for the pain. -Patient stated that he "wants to live." He is focused on his strained relationships with his children and grandchildren. He feels like a burden to his family and states he lives a "lonely life." However, he is willing to try rehab to try and get well enough to undergo treatment. -Patient would like to continue to be independent, but also understands that this will be difficult. Living with one of his children does not seem to be an option. His son, Andre, is his POA and helps patient when he can. Patient also has a daughter who is local, but again cannot be with patient all the time. -Need to see what patient's capabilities are after acute rehab and either go back home vs. SNF for further rehab or permanent stay. Patient normally is able to walk with walker, but his activity tolerance has been quite poor lately with his increased SOB and leg pain. -For now, patient wants to remain a full code. He states he would want a trial of CPR and intubation. He would NOT want to be intubated assisted or have a trach. He states that if he was intubated and was not improving in a few days, he would want to be made comfortable. He does have a living will that has his wishes listed for when he is end-stage. -Will continue to follow and assist with discussing GOC and help with any decision making. (2) Atrial flutter: (3) Pathological fracture of right hip: Pathology associated with fracture: neoplastic disease (4) Squamous cell lung cancer: Supervising Physician Co-Signing Physician Notes Chart reviewed, patient seen and examined. Collaborated with MOSES Sanders PE: Patient lying in bed, no acute distress. Patient complains of right hip pain HEENT: EOMI, normal hearing, edentulous Respiratory: Lungs clear, unlabored CV: Bradycardic, positive murmur, no edema Abdomen: Soft, nontender Neuro: Alert and oriented Agree with above note, assessment and plan as per MOSES Sanders. Will continue to follow and assist patient and family with medical decision making. Patient's goal is to regain strength and undergo treatment for his metastatic squamous cell lung cancer History of Present Illness Attending Physician: Mayito Devries MD, PhD, [facility] History of Present Illness This 77 year old male patient with PMH htn, COPD, asthma, BPH, lung mass s/p RLL lobectomy in 04/2017, and others, presented from [facility] with pathologic fracutre of right femur due to metastatic disease. This patient was found to have a lung mass back in 2017, shown to be squamous cell, underwent RLL lobectomy with Dr. Liang and was followed with observation. Unfortunately, he was found to have right subcarinal and hilar mass consistent with recurrent malignancy. He underwent PET/CT scan which showed metastatic disease and FDG avid right femur lesion. He then developed severe right leg pain and was found to have a pathologic fracture. He was sent here for orthopedic surgery. Underwent surgical nailing on 07/18/18 and is recovering in PCU. He will require acute inpatient rehab after hospitalization. Patient lives home alone, is currently full code. Dr. Orantes was consulted and stated that patient will eventually need chemotherapy, but his current performance status is too poor. He also has a poor nutritional status with albumin 1.6. Radiation oncology was consulted and does plan to offer palliative XRT to the right leg once he is recovered from surgery as well. Palliative care is consulted to establish goals of care. Thank you kindly for this consult. I will follow as needed. Allergies Allergy/AdvReac Type Severity Reaction Status Date / Time meperidine Allergy Severe ANAPHYLAXIS Verified 07/18/18 13:34 Iodinated Contrast- Oral and Allergy Intermediate HIVES Verified 07/18/18 13:34 IV Dye oxycodone Allergy Intermediate SHORTNESS Verified 07/18/18 13:34 OF BREATH dobutamine AdvReac Unknown abd pain Verified 07/18/18 13:34 perflutren AdvReac Unknown abd pain Verified 07/18/18 13:34 Home Medications Home Medications Medication Instructions Recorded Confirmed Type albuterol sulfate 2.5 mg INHALATION QID PRN 06/04/18 06/04/18 History albuterol sulfate [ProAir HFA] 2 puff INHALATION Q6H PRN 06/04/18 06/04/18 History allopurinol 300 mg PO DAILY 06/04/18 06/04/18 History atorvastatin 40 mg PO PM 06/04/18 06/04/18 History budesonide 0.25 mg INHALATION BID PRN 06/04/18 06/04/18 History carvedilol 3.125 mg PO BID 06/04/18 06/04/18 History cholecalciferol (vitamin D3) 2,000 unit PO DAILY 06/04/18 06/04/18 History [Vitamin D3] clopidogrel 75 mg PO DAILY 06/04/18 06/04/18 History cyanocobalamin (vitamin B-12) 1,000 mcg PO DAILY 06/04/18 06/04/18 History finasteride 5 mg PO DAILY 06/04/18 06/04/18 History formoterol fumarate [Perforomist] 1 dose INHALATION BID PRN 06/04/18 06/04/18 History gabapentin 300 mg PO PM 06/04/18 06/04/18 History insulin glargine U-300 conc 20 unit SUBCUT PM 06/04/18 06/04/18 History [Toujeo SolFreedomvick U-300 Insulin] insulin lispro [Humalog KwikPen 4 unit SUBCUT AC 06/04/18 06/04/18 History Insulin] ipratropium-albuterol [Combivent 1 puff INHALATION QID 06/04/18 06/04/18 History Respimat] levothyroxine 50 mcg PO DAILY 06/04/18 06/04/18 History magnesium oxide 400 mg PO DAILY 06/04/18 06/04/18 History pantoprazole 40 mg PO DAILY 06/04/18 06/04/18 History paroxetine HCl 10 mg PO DAILY 06/04/18 06/04/18 History tamsulosin 0.4 mg PO PM 06/04/18 06/04/18 History amoxicillin-pot clavulanate 1 tab PO BIDM #6 tab 06/11/18 Rx prednisone 40 mg PO BID #2 tab 06/11/18 Rx Patient History Medical History Constipation Weakness (Acute) Pressure ulcer, sacrum (Acute) Lung mass (Acute) Hypertension (Chronic) Diabetes BPH (benign prostatic hyperplasia) Asthma (Chronic) COPD (chronic obstructive pulmonary disease) (Chronic) Carcinoma, lung COPD (chronic obstructive pulmonary disease) (Chronic) H/o hospitalization but no h/o intubation in the past Diabetes (Chronic) Liver cirrhosis Pneumonia 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 (UE and LE) Surgical History H/O colectomy H/O inguinal hernia repair S/P cholecystectomy S/P lobectomy of lung right lower lobe 04/2017 S/P total knee arthroplasty right Status post total shoulder arthroplasty Right 2018 Family History Other No pertinent family history Review of Systems Constitutional: + weakness Ear, Nose, Mouth, Throat: no dysphagia Respiratory: + cough, + dyspnea and + dyspnea on exertion Cardiovascular: no chest pain and no edema Gastrointestinal: no abdominal pain, no nausea and no vomiting right leg pain Neurologic: no confusion Psychiatric: no anxiety Physical Exam Vital Signs (Past 24 Hours): Last Vital Signs Temp 37.0 C 07/19/18 11:16 Pulse 60 07/19/18 11:16 Resp 16 07/19/18 11:16 BP 92/55 L 07/19/18 11:16 Pulse Ox 97 07/19/18 11:16 Constitutional: + overweight; no acute distress ENMT: Ears: no hearing impairment Neck: normal visual inspection, trachea midline and + thick neck Respiratory: normal respiratory effort; no respiratory distress Auscultation: + diminished lung sounds Cardiovascular: RRR, no murmur, no edema Vessels: dorsalis pedis pulses present Gastrointestinal (Abdomen): Inspection/Auscultation: abdomen normal to inspection and normal bowel sounds; abdomen not distended Percussion/Palpation: abdomen soft; abdomen nontender Neurologic: awake; not confused Psychiatric: A+Ox3, euthymic affect Time Spent Midlevel 75 minutes with >50% of time spent at bedside with patient discussing condition and GOC.
--- NOTE | 2018-07-19 15:36 | Hospitalist Progress Note ---
Date of Service July 19, 2018 Assessment & Plan (1) Pathological fracture of right hip: (2) Hypertension: (3) Gout: (4) Diabetes: (5) BPH (benign prostatic hyperplasia): (6) Asthma: (7) COPD (chronic obstructive pulmonary disease): (8) CVA (cerebral vascular accident): (9) Change in mental status: (10) S/P lobectomy of lung: (11) Right lower lobe lung mass: (12) Hypothyroid: (13) Neuropathy: -continue home gabapentin (14) DVT prophylaxis: 77-year-old male admitted on July 16, 2018 because of pelvic pain, has prophylaxis nail for pathological fracture of right hip on 07/18/2018 pathological fracture of right hip: CT of the pelvis demonstrated an acute pathologic fracture of the right lesser trochanter with associated lytic bone lesion, consistent w/metastatic disease. ortho consulted,prophylaxis nail done POD 1 cardiology consulted for preop clearance , Stress nuclear imaging from 2017 shows normal LV systolic function consulted Dr. Orantes who patient was to establish with for oncology History of A. fib, postop Having A. fib with rapid ventricular response yesterday, amiodarone and drug started, has converted to normal sinus rhythm, Cardiology input appreciated, has DC'ed coreg and transition to metoprolol for better rhythm effects. Poor candidate for anticoagulation, given bleeding risk Per community ambassador History of hypertension Now with borderline low blood pressureWe will continue watch and monitor medication gout, BPH, asthma, COPD, CVA, diabetic, continue current care, Right lower lobe lung mass: Negative with metastasis to the pelvic, Palliative care input appreciated, Follow-up patient want to keep full code, and looking for [facility] if needed, Lovenox for DVT prophylaxis if okay with orthopedic surgeon Subjective Postop day 1, doing fair, no complaint of pain, However nursing staff reported has decreased urine output, Patient has not been eating well A. fib was converted to normal sinus rhythm after start amiodarone drip, Denies fever chills, But did reported generalized weakness No nausea vomiting abdominal pain diarrhea constipation Denies cough and sputum, Denies chest pain Physical Exam Vital Signs (Past 24 Hours): Last Vital Signs Temp 37.0 C 07/19/18 11:16 Pulse 60 07/19/18 11:16 Resp 16 07/19/18 11:16 BP 92/55 L 07/19/18 11:16 Pulse Ox 97 07/19/18 11:16 Physical Exam: General Appearance: Chronically ill looking, decreased hearing, WD/WN, no apparent distress, Eyes: normal inspection, PERRL, EOMI, sclerae normal ENT: normal ENT inspection, hearing grossly normal, pharynx normal Neck: supple, no adenopathy, thyroid normal, no JVD, no carotid bruits, trachea midline Respiratory/Chest: Decreased breathing sounds bilaterally, occasional wheezing, chest non-tender, Cardiovascular: regular rate, rhythm, no JVD, no murmur Abdomen: normal bowel sounds, non tender, soft, no organomegaly, Briggs catheter in place Extremities: normal inspection, no pedal edema, no calf tenderness, normal capillary refill, pelvis stable, Neurologic/Psychiatric: production engineer track II-XII nml as tested, no motor/sensory deficits, alert, normal mood/affect, oriented x 3 Skin: normal color, warm/dry, no rash Lymphatic: no adenopathy Results & Data Laboratory Results Laboratory Results - last 24 hr 07/18/18 07/18/18 07/18/18 16:39 16:54 20:41 WBC RBC Hgb Hct MCV MCH MCHC RDW Std Deviation RDW Coeff of Dc Plt Count MPV Immature Gran % (Auto) Neut % (Auto) Lymph % (Auto) [place] % (Auto) Eos % (Auto) Baso % (Auto) Immature Gran # (Auto) Neut # (Auto) Lymph # (Auto) [place] # (Auto) Eos # (Auto) Baso # (Auto) Absolute Nucleated RBC Nucleated RBC % (auto) Sodium Potassium Chloride Carbon Dioxide Anion Gap BUN Creatinine Est Cr Clr Drug Dosing Est GFR ( Amer) Est GFR (Non-Af Amer) BUN/Creatinine Ratio Glucose POC Glucose 112 H 150 H Calcium Phosphorus Magnesium 25-OH Vitamin D Total 59.6 07/19/18 07/19/18 07/19/18 05:47 05:47 06:56 WBC 9.90 RBC 3.83 L Hgb 9.7 L Hct 30.9 L MCV 80.7 MCH 25.3 MCHC 31.4 L RDW Std Deviation 56.8 H RDW Coeff of Dc 19.4 H Plt Count 176 MPV 8.6 Immature Gran % (Auto) 0.7 Neut % (Auto) 85.1 Lymph % (Auto) 9.0 [place] % (Auto) 5.1 Eos % (Auto) 0.0 Baso % (Auto) 0.1 Immature Gran # (Auto) 0.07 H Neut # (Auto) 8.43 H Lymph # (Auto) 0.89 L [place] # (Auto) 0.50 Eos # (Auto) 0.00 Baso # (Auto) 0.01 Absolute Nucleated RBC 0.00 Nucleated RBC % (auto) 0.0 Sodium 139 Potassium 4.5 Chloride 107 Carbon Dioxide 23 Anion Gap 9.0 BUN 28 H Creatinine 1.05 Est Cr Clr Drug Dosing 71.4 Est GFR ( Amer) 79.5 Est GFR (Non-Af Amer) 68.6 BUN/Creatinine Ratio 27.1 H Glucose 171 H POC Glucose 176 H Calcium 8.6 Phosphorus 4.0 Magnesium 1.7 L 25-OH Vitamin D Total 07/19/18 11:00 WBC RBC Hgb Hct MCV MCH MCHC RDW Std Deviation RDW Coeff of Dc Plt Count MPV Immature Gran % (Auto) Neut % (Auto) Lymph % (Auto) [place] % (Auto) Eos % (Auto) Baso % (Auto) Immature Gran # (Auto) Neut # (Auto) Lymph # (Auto) [place] # (Auto) Eos # (Auto) Baso # (Auto) Absolute Nucleated RBC Nucleated RBC % (auto) Sodium Potassium Chloride Carbon Dioxide Anion Gap BUN Creatinine Est Cr Clr Drug Dosing Est GFR ( Amer) Est GFR (Non-Af Amer) BUN/Creatinine Ratio Glucose POC Glucose 240 H Calcium Phosphorus Magnesium 25-OH Vitamin D Total (1) Pathological fracture of right hip Pathology associated with fracture: neoplastic disease
[2018-07-19] MEDS: AMIODARONE / D5W 360 MG/200 ML BAG IV SCH (15:58)
[2018-07-19] MEDS: SODIUM CHLORIDE 0.9% 500 ML IV SCH (15:58)
[2018-07-19] MEDS: SODIUM CHLORIDE 0.9% 1000ML 1,000 ML IV SCH (16:14)
--- NOTE | 2018-07-19 17:37 | Progress Note ---
DATE: 07/19/2018 SUBJECTIVE: The patient is postop day 1 status post right trochanteric femoral nailing for history of impending fracture due to likely metastatic disease. The patient is sleeping upon arrival, but is easily awoken. He answers questions appropriately and he appears alert, oriented. Currently, he states that his hip is feeling much better than it had prior to coming in to the hospital. He denies any shortness of breath or chest pain or lightheadedness and currently his pain is controlled. OBJECTIVE: VITAL SIGNS: Showed BP 99/63, pulse 68, respirations 18, temp 36.7. O2 sats were in the the 80's on room air and that was just prior to 7:00 this morning. Hemoglobin is 9.7. Dressings are clean, dry and intact. Thigh is soft. Calves were soft, nontender. Neurovascularly intact. Toes were mobile. ASSESSMENT: Postop day 1 status post right TFN for impending fracture due to metastatic disease. PLAN: The patient was started on PT and OT protocols when okay with Medicine Service. He will be continued on DVT prophylaxis and pain management and medical management per [facility]. Canal reamings from the procedure have been sent to pathology and we will await their identification. PATRICIA
[2018-07-19] MEDS: ENOXAPARIN INJ 30 MG/0.3 ML SYR SQ SCH (20:29)
[2018-07-19] MEDS: TAMSULOSIN HCL 0.4 MG CAP PO SCH (20:30)
[2018-07-19] MEDS: GABAPENTIN 300 MG CAP PO SCH (20:30)
[2018-07-19] MEDS: METOPROLOL TARTRATE 25 MG TAB PO SCH (20:31)
[2018-07-19] MEDS: ATORVASTATIN 40 MG TAB PO SCH (20:31)
[2018-07-20] MEDS: MoRPHine SULFATE 4 MG/ML 1 ML CARP\\VIAL IV PRN ×2 (00:18→10:19)
[2018-07-20] MEDS ORDERED: Nursing to Pharmacy Communication ONE (00:53)
[2018-07-20] MEDS: SODIUM CHLORIDE 0.9% 1000ML 1,000 ML IV SCH ×2 (03:47→12:12)
[2018-07-20] MEDS: LEVOTHYROXINE SODIUM 50 MCG TABLET PO SCH (05:54)
[2018-07-20] MEDS: INSULIN ASPART 100 UNITS/ML 3 ML PEN SC SCH ×4 (08:23→20:43)
[2018-07-20] MEDS: METOPROLOL TARTRATE 25 MG TAB PO SCH ×2 (08:26→20:45)
[2018-07-20] MEDS: IPRATROPIUM BROMIDE/ALBUTEROL respimat INH INH SCH ×4 (08:26→20:44)
[2018-07-20] MEDS: LOSARTAN POTASSIUM 50 MG TAB PO SCH (08:26)
[2018-07-20] MEDS: ALLOPURINOL 300 MG TAB PO SCH (08:26)
[2018-07-20] MEDS: FINASTERIDE 5 MG TAB PO SCH (08:26)
[2018-07-20] MEDS: PARoxetine HCl 10 MG TAB PO SCH (08:27)
[2018-07-20] MEDS: MAGNESIUM OXIDE 400 MG TAB PO SCH ×2 (08:27→20:45)
[2018-07-20] MEDS: PANTOprazole 40 MG TAB PO SCH (08:27)
[2018-07-20] MEDS: ACETAMINOPHEN 1,000 MG/100 ML VIAL IV PRN (08:30)
[2018-07-20 09:10] LABS: BUN Creatinine Ratio 30.6 (10-20); Calcium 8.7 mg/dl (8.5-10.1); Creatinine Clr Calc Pharmacy 59.5 ml/min; Est GFR (Non-African American) 56.1; Magnesium 1.9 mg/dl (1.8-2.4); Potassium 4.5 mmol/L (3.5-5.1)
[2018-07-20 09:14] LABS: Phosphorus 2.2 mg/dl (2.5-4.9)
--- NOTE | 2018-07-20 09:26 | Progress Note ---
DATE: 07/20/2018 SUBJECTIVE: The patient is postop day 2 status post right TFN. He is currently sitting up in his bed. He is awake and alert and oriented. He is eating breakfast. He states he is having a little bit more hip pain this morning than he had before, but is tolerating well. He denies shortness of breath, chest pain or lightheadedness currently. OBJECTIVE: Dressings remained intact on the right hip. He has some mild drainage noted on them. Thigh is soft and nontender. Calves were soft, nontender. Neurovascularly intact. Toes were mobile. ASSESSMENT: Postop day 2 status post right TFN for impending fracture due to likely metastatic disease. Labs are pending this morning. Continue PT and OT protocols. Continue DVT prophylaxis, Lovenox, SCDs and AGATA hose and pain management as written. Plan for dressing change today. Pathology specimen from surgery is still pending.
[2018-07-20] MEDS ORDERED: ONDANSETRON INJ 2 MG/ML 2 ML VIAL IV PRN (12:45)
--- NOTE | 2018-07-20 12:55 | Palliative Care Progress Note ---
Date of Service July 20, 2018 Assessment & Plan (1) Goals of care, counseling/discussion: -Met with patient in room 217. No family at bedside. patient is awake, alert and oriented x4. He does c/o pain 8/10 in right leg when moving. He appears comfortable when not moving. He is ordered PRN morphine for the pain. -Patient's goal is to go to rehab and eventually undergo treatment for his squamous cell lung care. -S/P femur nailing due to metastatic disease. Will need acute inpatient rehab. R ehab potential uncertain given comorbidities, obesity, low albumin/poor nutritional status, etc. watermelon inspector plan uncertain at this time. -Son, Andre, is POA. -Has morphine ordered PRN for pain. Consider switching to oxycodone 5mg PO Q4h PRN pain as discharge nears. -Patient is feelig nauseated today. Added zofran 4mg IV Q6h PRN nausea/vomiting. -Patient remains full code per his wishes and our conversation yesterday. -Will continue to follow periodically throughout hospital stay. (2) Atrial flutter: (3) Pathological fracture of right hip: (4) Squamous cell lung cancer: Subjective Constitutional: + weakness Ear, Nose, Mouth, Throat: no dysphagia Respiratory: no cough and no dyspnea Cardiovascular: + edema; no chest pain Gastrointestinal: + nausea; no abdominal pain and no vomiting right leg pain Neurologic: no confusion Psychiatric: no anxiety Physical Exam Vital Signs (Past 24 Hours): Last Vital Signs Temp 36.4 C L 07/20/18 12:48 Pulse 60 07/20/18 12:48 Resp 16 07/20/18 12:48 BP 84/57 L 07/20/18 12:48 Pulse Ox 97 07/20/18 12:48 Constitutional: + overweight; no acute distress ENMT: Ears: no hearing impairment Neck: normal visual inspection, trachea midline and + thick neck Respiratory: normal respiratory effort; no respiratory distress Auscultation: + diminished lung sounds Cardiovascular: RRR, no murmur, no edema Vessels: dorsalis pedis pulses present Gastrointestinal (Abdomen): Inspection/Auscultation: abdomen normal to inspection and normal bowel sounds; abdomen not distended Percussion/Palpation: abdomen soft; abdomen nontender Neurologic: awake; not confused Psychiatric: A+Ox3, euthymic affect Time Spent Midlevel 25 minutes with >50% of time spent at bedside with patient discussing GOC and plan. (1) Pathological fracture of right hip Pathology associated with fracture: neoplastic disease
--- NOTE | 2018-07-20 15:35 | Hospitalist Progress Note ---
Date of Service July 20, 2018 Assessment & Plan (1) Pathological fracture of right hip: (2) Hypertension: (3) Gout: (4) Diabetes: (5) BPH (benign prostatic hyperplasia): (6) Asthma: (7) COPD (chronic obstructive pulmonary disease): (8) CVA (cerebral vascular accident): (9) Change in mental status: (10) S/P lobectomy of lung: (11) Right lower lobe lung mass: (12) Hypothyroid: (13) Neuropathy: (14) DVT prophylaxis: 77-year-old male admitted on July 16, 2018 because of pelvic pain, has prophylaxis nail for pathological fracture of right hip on 07/18/2018 pathological fracture of right hip: Postop day 2, doing well CT of the pelvis demonstrated an acute pathologic fracture of the right lesser trochanter with associated lytic bone lesion, consistent w/metastatic disease. ortho consulted,prophylaxis nail done cardiology consulted for preop clearance , Stress nuclear imaging from 2017 shows normal LV systolic function consulted Dr. Orantes who patient was to establish with for oncology History of A. fib, postop Having A. fib with rapid ventricular response 2 days ago, amiodarone and drug started, has converted to normal sinus rhythm, Cardiology input appreciated, has DC'ed coreg and transition to metoprolol for better rhythm effects. Poor candidate for anticoagulation, given bleeding risk Per data reporting analyst, History of hypertension Now with borderline low blood pressureWe will continue watch and monitor medication gout, BPH, asthma, COPD, CVA, diabetic, continue current care, has restarted Plavix Right lower lobe lung mass: Negative with metastasis to the pelvic, Palliative care input appreciated, Follow-up patient want to keep full code, and looking for assisted rehab if needed, Lovenox 30 mg subcu daily for DVT prophylaxis , this was discussed with orthopedic surgeon GHANSHYAM Briggs catheter continue PT OT, Subjective Postop day 2, feeling generalized weakness, no appetite, Nursing staff report has decreased urine output Denies fever chills, But did reported generalized weakness No nausea vomiting abdominal pain diarrhea constipation Denies cough and sputum, Denies chest pain Physical Exam Vital Signs (Past 24 Hours): Last Vital Signs Temp 36.4 C L 07/20/18 15:21 Pulse 55 L 07/20/18 15:21 Resp 18 07/20/18 15:21 BP 100/62 07/20/18 15:21 Pulse Ox 95 03/01/19 15:21 Physical Exam: General Appearance: Chronically ill looking, decreased hearing, WD/WN, looks tired than yesterday Eyes: normal inspection, PERRL, EOMI, sclerae normal ENT: normal ENT inspection, hearing grossly normal, pharynx normal Neck: supple, no adenopathy, thyroid normal, no JVD, no carotid bruits, trachea midline Respiratory/Chest: Decreased breathing sounds bilaterally, occasional wheezing, chest non-tender, Cardiovascular: regular rate, rhythm, no JVD, no murmur Abdomen: normal bowel sounds, non tender, soft, no organomegaly, Briggs catheter in place Extremities: normal inspection, no pedal edema, no calf tenderness, normal capillary refill, pelvis stable, Neurologic/Psychiatric: catastrophe claims supervisor II-XII nml as tested, no motor/sensory deficits, alert, normal mood/affect, oriented x 3 Skin: normal color, warm/dry, no rash Lymphatic: no adenopathy Results & Data Laboratory Results Laboratory Results - last 24 hr 07/19/18 07/19/18 07/20/18 16:19 20:07 07:29 Sodium Potassium Chloride Carbon Dioxide Anion Gap BUN Creatinine Est Cr Clr Drug Dosing Est GFR ( Amer) Est GFR (Non-Af Amer) BUN/Creatinine Ratio Glucose POC Glucose 215 H 159 H 127 H Calcium Phosphorus Magnesium 07/20/18 07/20/18 07/20/18 08:42 08:42 11:10 Sodium 139 Potassium 4.5 Chloride 108 H Carbon Dioxide 27 Anion Gap 4.0 BUN 38 H Creatinine 1.24 Est Cr Clr Drug Dosing 59.5 Est GFR ( Amer) 65.0 Est GFR (Non-Af Amer) 56.1 BUN/Creatinine Ratio 30.6 H Glucose 122 H POC Glucose 129 H Calcium 8.7 Phosphorus 2.2 L D Cancelled Magnesium 1.9 (1) Pathological fracture of right hip Pathology associated with fracture: neoplastic disease
[2018-07-20] MEDS: MEGESTROL ACETATE SUSP 400 MG/10 ML UDC PO SCH (17:31)
[2018-07-20] MEDS: ENOXAPARIN INJ 30 MG/0.3 ML SYR SQ SCH (20:44)
[2018-07-20] MEDS: ATORVASTATIN 40 MG TAB PO SCH (20:45)
[2018-07-20] MEDS: GABAPENTIN 300 MG CAP PO SCH (20:45)
[2018-07-20] MEDS: TAMSULOSIN HCL 0.4 MG CAP PO SCH (20:46)
[2018-07-21] MEDS: LEVOTHYROXINE SODIUM 50 MCG TABLET PO SCH (05:56)
[2018-07-21 07:17] LABS: Basophils # (auto) 0.01 K/uL (0-0.2); Basophils % (auto) 0.2 %; Eosinophils # (auto) 0.06 K/uL (0-0.5); Hematocrit (blood only) 28.3 % (42-52); Immature Granulocytes # (auto) 0.02 K/uL (0.00-0.02); Immature Granulocytes % (auto) 0.3 %; Lymphocytes # (auto) 0.85 K/uL (1.2-3.4); Lymphocytes % (auto) 13.6 %; Mean Corpuscular Hgb Conc 31.8 g/dL (32-36); Mean Corpuscular Volume 80.2 fL (80-100); Mean Platelet Volume 8.6 fL (7.4-10.4); Neutrophils # (auto) 4.81 K/uL (1.4-6.5); Neutrophils % (auto) 76.9 %; Platelet Count 133 K/uL (130-400); RDW Coefficient of Variation 19.7 % (11.5-14.5); RDW Standard Deviation 57.1 fL (36.4-46.3); Red Blood Count 3.53 M/uL (4.7-6.1); White Blood Count 6.25 K/uL (4.8-10.8)
--- NOTE | 2018-07-21 07:34 | Orthopedic Progress Note ---
Date of Service July 21, 2018 Assessment & Plan (1) Pathological fracture of right hip: POD#3 right hip TFN -Pain management -DVT prophylaxis -PT/OT-PWB RLE -D/C planning as per medicine Patient is orthopedically stable at this point, he is to be Partial weight bearing to RLE. F/u with Dr. Torrez 10-14 days post operatively. Ortho will sign off at this time. Subjective Patient seen in room, states he is having moderate amount of pain in hip with movement, no other complaints at this time. No calf tenderness Physical Exam Vital Signs (Past 24 Hours): Last Vital Signs Temp 36.4 C L 07/21/18 03:17 Pulse 68 07/21/18 03:17 Resp 22 07/21/18 03:17 BP 106/65 07/21/18 03:17 Pulse Ox 98 07/21/18 03:17 Physical Exam: Dressing is c/d/i, sensation intact, n/v status intact, no calf tenderness, toes mobile (1) Pathological fracture of right hip Pathology associated with fracture: neoplastic disease
[2018-07-21 07:56] LABS: BUN Creatinine Ratio 33.6 (10-20); Calcium 9.1 mg/dl (8.5-10.1); Est GFR (African American) 89.8; Est GFR (Non-African American) 77.4; Magnesium 1.9 mg/dl (1.8-2.4); Potassium 4.3 mmol/L (3.5-5.1)
[2018-07-21 08:22] LABS: Phosphorus 1.5 mg/dl (2.5-4.9)
[2018-07-21] MEDS ORDERED: POTASSIUM PHOS 3 MMOL/1 ML INFUSION IV STA (08:28)
[2018-07-21] MEDS ORDERED: POTASSIUM PHOSPHATE 21 MMOL in SODIUM CHLORIDE 0.9% 500 ML IV ONE (08:45)
[2018-07-21] MEDS: INSULIN ASPART 100 UNITS/ML 3 ML PEN SC SCH ×4 (09:14→20:03)
[2018-07-21] MEDS: IPRATROPIUM BROMIDE/ALBUTEROL respimat INH INH SCH ×4 (09:15→19:59)
[2018-07-21] MEDS: LOSARTAN POTASSIUM 50 MG TAB PO SCH (09:16)
[2018-07-21] MEDS: PANTOprazole 40 MG TAB PO SCH (09:16)
[2018-07-21] MEDS: CLOPIDOGREL BISULFATE 75 MG TAB PO SCH (09:16)
[2018-07-21] MEDS: METOPROLOL TARTRATE 25 MG TAB PO SCH ×2 (09:16→20:03)
[2018-07-21] MEDS: ALLOPURINOL 300 MG TAB PO SCH (09:16)
[2018-07-21] MEDS: FINASTERIDE 5 MG TAB PO SCH (09:16)
[2018-07-21] MEDS: MEGESTROL ACETATE SUSP 400 MG/10 ML UDC PO SCH (09:16)
[2018-07-21] MEDS: MAGNESIUM OXIDE 400 MG TAB PO SCH ×2 (09:17→19:59)
[2018-07-21] MEDS: PARoxetine HCl 10 MG TAB PO SCH (10:37)
--- NOTE | 2018-07-21 15:10 | Hospitalist Progress Note ---
Date of Service July 21, 2018 Assessment & Plan (1) Pathological fracture of right hip: (2) Hypertension: (3) Gout: (4) Diabetes: (5) BPH (benign prostatic hyperplasia): (6) Asthma: (7) COPD (chronic obstructive pulmonary disease): (8) CVA (cerebral vascular accident): (9) Change in mental status: (10) S/P lobectomy of lung: (11) Right lower lobe lung mass: (12) Hypothyroid: (13) Neuropathy: (14) DVT prophylaxis: 77-year-old male admitted on July 16, 2018 because of pelvic pain, has prophylaxis nail for pathological fracture of right hip on 07/18/2018 , Today is much confused Possible metabolic encephalopathy postop, etiology for the confusion is unknown, However he is post, he get narcotic pain medication, I want to check ABG, check ammonia levels, UA as well, and will follow up pathological fracture of right hip: Postop day 3, mental status has been wax and wane, see above CT of the pelvis demonstrated an acute pathologic fracture of the right lesser trochanter with associated lytic bone lesion, consistent w/metastatic disease. ortho consulted,prophylaxis nail done cardiology consulted for preop clearance , Stress nuclear imaging from 2017 shows normal LV systolic function consulted Dr. Orantes who patient was to establish with for oncology History of A. fib, postop Having A. fib with rapid ventricular response 2 days ago, amiodarone and drug started, has converted to normal sinus rhythm, Cardiology input appreciated, has DC'ed coreg and transition to metoprolol for better rhythm effects. Per cardiology, poor candidate for anticoagulation, given bleeding risk Per hr manager, History of hypertension Now with borderline low blood pressure, We will continue watch and monitor medication gout, BPH, asthma, COPD, CVA, diabetic, continue current care, has restarted Plavix Right lower lobe lung mass: Negative with metastasis to the pelvic, Palliative care input appreciated, Follow-up patient want to keep full code, and looking for intermediate rehab if needed, Lovenox 30 mg subcu daily for DVT prophylaxis , this was discussed with orthopedic surgeon GHANSHYAM Briggs catheter continue PT OT, Subjective Postop day 3, Nursing staff patient has been confusing, pulling out the Briggs catheters, Bladder scan more than 500, Briggs catheter had to be reinserted, Denies fever chills, Review of system is limited because of confused Constitutional: + fatigue; no fever and no chills Physical Exam Vital Signs (Past 24 Hours): Last Vital Signs Temp 36.8 C 07/21/18 13:00 Pulse 77 07/21/18 13:00 Resp 16 07/21/18 13:00 BP 117/66 07/21/18 13:00 Pulse Ox 94 07/21/18 13:00 Physical Exam: General Appearance: Chronically ill looking, decreased hearing, looks much lethargic, however awake able, when asking his name he said " I do not know " Eyes: normal inspection, PERRL, EOMI, sclerae normal ENT: normal ENT inspection, hearing grossly normal, pharynx normal Neck: supple, no adenopathy, thyroid normal, no JVD, no carotid bruits, trachea midline Respiratory/Chest: Decreased breathing sounds bilaterally, occasional wheezing, chest non-tender, Cardiovascular: regular rate, rhythm, no JVD, no murmur Abdomen: Briggs catheter reinserted, normal bowel sounds, non tender, soft, no organomegaly, Briggs catheter in place Extremities: normal inspection, 1+ pedal edema, no calf tenderness, normal capillary refill, pelvis stable, Neurologic/Psychiatric: billing administrator II-XII nml as tested, no motor/sensory deficits, alert, normal mood/affect, oriented x 3 Skin: normal color, warm/dry, no rash Lymphatic: no adenopathy Results & Data Laboratory Results Laboratory Results - last 24 hr 07/18/18 07/20/18 07/20/18 12:52 16:12 20:10 WBC RBC Hgb Hct MCV MCH MCHC RDW Std Deviation RDW Coeff of Dc Plt Count MPV Immature Gran % (Auto) Neut % (Auto) Lymph % (Auto) [place] % (Auto) Eos % (Auto) Baso % (Auto) Immature Gran # (Auto) Neut # (Auto) Lymph # (Auto) [place] # (Auto) Eos # (Auto) Baso # (Auto) Sodium Potassium Chloride Carbon Dioxide Anion Gap BUN Creatinine Est Cr Clr Drug Dosing Est GFR ( Amer) Est GFR (Non-Af Amer) BUN/Creatinine Ratio Glucose POC Glucose 132 H 143 H Calcium Phosphorus Magnesium Crossmatch See Detail 07/21/18 07/21/18 07/21/18 06:46 06:46 07:21 WBC 6.25 RBC 3.53 L Hgb 9.0 L Hct 28.3 L MCV 80.2 MCH 25.5 MCHC 31.8 L RDW Std Deviation 57.1 H RDW Coeff of Dc 19.7 H Plt Count 133 MPV 8.6 Immature Gran % (Auto) 0.3 Neut % (Auto) 76.9 Lymph % (Auto) 13.6 [place] % (Auto) 8.0 Eos % (Auto) 1.0 Baso % (Auto) 0.2 Immature Gran # (Auto) 0.02 Neut # (Auto) 4.81 Lymph # (Auto) 0.85 L [place] # (Auto) 0.50 Eos # (Auto) 0.06 Baso # (Auto) 0.01 Sodium 140 Potassium 4.3 Chloride 109 H Carbon Dioxide 26 Anion Gap 5.0 BUN 32 H Creatinine 0.95 Est Cr Clr Drug Dosing 77.0 Est GFR ( Amer) 89.8 Est GFR (Non-Af Amer) 77.4 BUN/Creatinine Ratio 33.6 H Glucose 122 H POC Glucose 127 H Calcium 9.1 Phosphorus 1.5 L* Magnesium 1.9 Crossmatch (1) Pathological fracture of right hip Pathology associated with fracture: neoplastic disease
[2018-07-21 15:52] LABS: Allen Test Pos (Pos); HCO3 ABG 22 mmol/L (19-24); Oxygen Saturation ABG 96.1 % (90-95); PCO2 ABG 30 mmHg (35-46); PO2 ABG 83 mm/Hg (80-95); pH ABG 7.49 (7.35-7.45)
[2018-07-21 16:25] LABS: Folate (Folic Acid) 6.05 ng/ml (>5.38)
[2018-07-21] MEDS ORDERED: LACTULOSE SYRUP 30 GM/45 ML UDP PO ONE (16:45)
[2018-07-21] MEDS: ENOXAPARIN INJ 30 MG/0.3 ML SYR SQ SCH (19:59)
[2018-07-21] MEDS: TAMSULOSIN HCL 0.4 MG CAP PO SCH (20:02)
[2018-07-21] MEDS: GABAPENTIN 300 MG CAP PO SCH (20:03)
[2018-07-21] MEDS: ATORVASTATIN 40 MG TAB PO SCH (20:03)
[2018-07-21] MEDS: LACTULOSE SYRUP 30 GM/45 ML UDP PO SCH (21:38)
[2018-07-22] MEDS: LEVOTHYROXINE SODIUM 50 MCG TABLET PO SCH (06:34)
[2018-07-22] MEDS: LACTULOSE SYRUP 30 GM/45 ML UDP PO SCH ×3 (06:34→20:04)
[2018-07-22 07:07] LABS: Basophils # (auto) 0.01 K/uL (0-0.2); Basophils % (auto) 0.1 %; Eosinophils # (auto) 0.03 K/uL (0-0.5); Eosinophils % (auto) 0.3 %; Hematocrit (blood only) 30.7 % (42-52); Immature Granulocytes # (auto) 0.06 K/uL (0.00-0.02); Immature Granulocytes % (auto) 0.7 %; Lymphocytes % (auto) 14.1 %; Mean Corpuscular Hgb Conc 32.6 g/dL (32-36); Mean Corpuscular Volume 79.3 fL (80-100); Mean Platelet Volume 8.3 fL (7.4-10.4); Monocytes # (auto) 0.65 K/uL (0.11-0.59); Monocytes % (auto) 7.1 %; Neutrophils # (auto) 7.14 K/uL (1.4-6.5); Neutrophils % (auto) 77.7 %; Platelet Count 146 K/uL (130-400); RDW Coefficient of Variation 20.2 % (11.5-14.5); RDW Standard Deviation 57.6 fL (36.4-46.3); Red Blood Count 3.87 M/uL (4.7-6.1); White Blood Count 9.19 K/uL (4.8-10.8)
[2018-07-22 07:35] LABS: BUN Creatinine Ratio 26.8 (10-20); Calcium 9.8 mg/dl (8.5-10.1); Creatinine Clr Calc Pharmacy 89.5 ml/min; Est GFR (African American) 100.6; Est GFR (Non-African American) 86.8; Magnesium 1.8 mg/dl (1.8-2.4); Potassium 3.7 mmol/L (3.5-5.1)
[2018-07-22 07:43] LABS: Anisocytosis Present
[2018-07-22] MEDS: INSULIN ASPART 100 UNITS/ML 3 ML PEN SC SCH ×4 (10:06→20:07)
[2018-07-22] MEDS: IPRATROPIUM BROMIDE/ALBUTEROL respimat INH INH SCH ×4 (10:07→20:05)
[2018-07-22] MEDS: ALLOPURINOL 300 MG TAB PO SCH ×2 (10:08→10:23)
[2018-07-22] MEDS: MEGESTROL ACETATE SUSP 400 MG/10 ML UDC PO SCH (10:08)
[2018-07-22] MEDS: PARoxetine HCl 10 MG TAB PO SCH ×2 (10:09→10:23)
[2018-07-22] MEDS: FINASTERIDE 5 MG TAB PO SCH ×2 (10:09→10:23)
[2018-07-22] MEDS: PANTOprazole 40 MG TAB PO SCH ×2 (10:09→10:23)
[2018-07-22] MEDS: LOSARTAN POTASSIUM 50 MG TAB PO SCH (10:24)
[2018-07-22] MEDS: METOPROLOL TARTRATE 25 MG TAB PO SCH ×3 (10:25→20:06)
[2018-07-22] MEDS: MAGNESIUM OXIDE 400 MG TAB PO SCH ×2 (10:26→20:05)
[2018-07-22] MEDS: CLOPIDOGREL BISULFATE 75 MG TAB PO SCH (10:26)
--- NOTE | 2018-07-22 12:25 | Cardiology Progress Note ---
Date of Service July 22, 2018 Assessment & Plan (1) Atrial fibrillation with RVR: Suspect secondary to aspiration. Patient spontaneously converted to normal sinus rhythm. Recommend discontinuation of Cozaar to allow for titration of beta-daron. Metoprolol will be increased to 25 mg 3 times daily. Continue to monitor telemetry. Would not restart amiodarone at this time due to elevated ammonia level and cirrhosis. (2) Atrial flutter: Initially treated with amiodarone with conversion to sinus rhythm. (3) Pathological fracture of right hip: Recurrent lung CA with bone metastasis. s/p surgical intervention of R hip. Hbg stable. Poor prognosis Subjective Patient seen and examined due to recurrent atrial fibrillation with rapid ventricular response. I was approached by nursing staff due to change in rhythm. ECG confirmed atrial fibrillation with RVR. Patient is awake however confused and does not answer questions appropriately. Elevated ammonia level noted. Carries history of cirrhosis. Initial episode of paroxysmal atrial flutter treated with IV amiodarone earlier this admission. Patient received a meal today with choking and possible aspiration. Cough noted currently with right-sided wheezing. Review of Systems All systems reviewed & are unremarkable except as noted in HPI & below Physical Exam Vital Signs (Past 24 Hours): Last Vital Signs Temp 36.8 C 07/22/18 11:53 Pulse 74 07/22/18 11:53 Resp 18 07/22/18 11:53 BP 110/71 07/22/18 11:53 Pulse Ox 97 07/22/18 11:53 Constitutional: well developed, well nourished, + altered mental status and + overweight Respiratory: normal respiratory effort Auscultation: + rhonchi (Right- sided) and + wheezes (Right-sided) Cardiovascular: Rate/Rhythm: regular rate and regular rhythm Heart Sounds: normal S1 and normal S2; no murmur Gastrointestinal (Abdomen): Inspection/Auscultation: abdomen not distended Percussion/Palpation: abdomen soft; abdomen nontender Skin: no rashes, warm and dry Neurologic: moves all extremities (1) Pathological fracture of right hip Pathology associated with fracture: neoplastic disease
--- NOTE | 2018-07-22 13:59 | XRay Report ---
XR chest 1V portable HISTORY: 77 years-old Male questionsable aspiration acute shortness of breath with possible aspirati on COMPARISON: Chest radiograph 07/16/2018 TECHNIQUE: Portable AP view of the chest FINDINGS: Cardiac silhouette is enlarged, unchanged. Stable widening of the mediastinum. No pneumothorax. Left lung is clear. Unchanged small right pleural effusion with right basilar consolidation. Degenerative changes of the left shoulder and spine. Right shoulder arthroplasty. IMPRESSION: 1. Cardiomegaly without overt pulmonary edema. 2. Stable right pleural effusion with right basilar consolidation. The above report was generated using voice recognition software. It may contain grammatical, syntax o r spelling errors. Electronically signed by: Darius Ramirez M.D. 07/22/2018 1:58 PM
--- NOTE | 2018-07-22 16:29 | Hospitalist Progress Note ---
Date of Service July 22, 2018 Assessment & Plan (1) Pathological fracture of right hip: (2) Hypertension: (3) Gout: (4) Diabetes: (5) BPH (benign prostatic hyperplasia): (6) Asthma: (7) COPD (chronic obstructive pulmonary disease): (8) CVA (cerebral vascular accident): (9) Change in mental status: (10) S/P lobectomy of lung: (11) Right lower lobe lung mass: (12) Hypothyroid: (13) Neuropathy: (14) DVT prophylaxis: 77-year-old male admitted on July 16, 2018 because of pelvic pain, has prophylaxis nail for pathological fracture of right hip on 07/18/2018 , from yesterday developed but lethargic and confused, was found ammonia level was high, lactulose was started Possible metabolic encephalopathy postop with increased ammonia level Continue lactulose 30 mg p.o. every 8 hour, watch for fall and aspiration Possible choking/aspiration, Chest x-ray was done; no new changes, per report: 1. Cardiomegaly without overt pulmonary edema. 2. Stable right pleural effusion with right basilar consolidation. Speech evaluation, and diet per speech, were not another family member to feeding Pathological fracture of right hip: Postop day 4, CT of the pelvis demonstrated an acute pathologic fracture of the right lesser trochanter with associated lytic bone lesion, consistent w/metastatic disease. ortho consulted,prophylaxis nail done cardiology consulted for preop clearance , Stress nuclear imaging from 2017 shows normal LV systolic function consulted Dr. Orantes who patient was to establish with for oncology History of A. fib, postop Having A. fib with rapid ventricular response postop, amiodarone and drug started, had converted to normal sinus rhythm, Cardiology input appreciated, has DC'ed coreg and transition to metoprolol for better rhythm effects. Per cardiology, poor candidate for anticoagulation, given bleeding risk Per attendance officer. Patient has episodes of A. fib today again, which improved on his own History of hypertension Now with borderline low blood pressure, has been stable Gout, BPH, asthma, COPD, CVA, diabetic, continue current care, has restarted Plavix Right lower lobe lung mass: likely with metastasis to the pelvic, Palliative care input appreciated, Follow-up patient want to keep full code, and looking for care home rehab if needed, Lovenox 30 mg subcu daily for DVT prophylaxis , this was discussed with orthopedic surgeon Able to reinsert Briggs catheter because of urinary retention after DC Briggs catheter yesterday Multiple comorbidities which include metastatic lung cancer disease, discussed with 2 son in bedside, they know poor prognosis Continue PT OT Patient want to go to [facility] in [facility], Per radiation oncology service, that if patient want to continue radiation treatment for lung cancer he need to follow-up with the radiation oncologist in [facility] Subjective Initially better in mental status, awake, answers simple questions, However possible choking after family feeding him mesh potato Otherwise no complaint, No fever and chill, Denies chest pain palpitation Denies nausea vomiting abdominal pain diarrhea constipation Denied local weakness Physical Exam Vital Signs (Past 24 Hours): Last Vital Signs Temp 36.9 C 07/22/18 15:17 Pulse 74 07/22/18 15:17 Resp 18 07/22/18 15:17 BP 113/72 07/22/18 15:17 Pulse Ox 98 07/22/18 15:17 Physical Exam: General Appearance: Chronically ill looking, lethargic is be tter than yesterday decreased hearing which is not new Eyes: normal inspection, PERRL, EOMI, sclerae normal ENT: normal ENT inspection, hearing grossly normal, pharynx normal Neck: supple, no adenopathy, thyroid normal, no JVD, no carotid bruits, trachea midline Respiratory/Chest: Decreased breathing sounds bilaterally, occasional wheezing, chest non-tender, Cardiovascular: regular rate, rhythm, no JVD, no murmur Abdomen: Briggs catheter reinserted, normal bowel sounds, non tender, soft, no organomegaly, Briggs catheter in place Extremities: normal inspection, 1+ pedal edema, no calf tenderness, normal capillary refill, pelvis stable, Neurologic/Psychiatric: inclinometer tester II-XII nml as tested, no motor/sensory deficits, alert, normal mood/affect, oriented x 3 Skin: normal color, warm/dry, no rash Lymphatic: no adenopathy Results & Data Laboratory Results Laboratory Results - last 24 hr 07/21/18 07/21/18 07/22/18 16:34 19:55 06:42 WBC 9.19 RBC 3.87 L Hgb 10.0 L Hct 30.7 L MCV 79.3 L MCH 25.8 MCHC 32.6 RDW Std Deviation 57.6 H RDW Coeff of Dc 20.2 H Plt Count 146 MPV 8.3 Immature Gran % (Auto) 0.7 Neut % (Auto) 77.7 Lymph % (Auto) 14.1 [place] % (Auto) 7.1 Eos % (Auto) 0.3 Baso % (Auto) 0.1 Immature Gran # (Auto) 0.06 H Neut # (Auto) 7.14 H Lymph # (Auto) 1.30 [place] # (Auto) 0.65 H Eos # (Auto) 0.03 Baso # (Auto) 0.01 Anisocytosis Present Sodium Potassium Chloride Carbon Dioxide Anion Gap BUN Creatinine Est Cr Clr Drug Dosing Est GFR ( Amer) Est GFR (Non-Af Amer) BUN/Creatinine Ratio Glucose POC Glucose 129 H 155 H Calcium Phosphorus Magnesium 07/22/18 07/22/18 07/22/18 06:42 07:25 11:37 WBC RBC Hgb Hct MCV MCH MCHC RDW Std Deviation RDW Coeff of Dc Plt Count MPV Immature Gran % (Auto) Neut % (Auto) Lymph % (Auto) [place] % (Auto) Eos % (Auto) Baso % (Auto) Immature Gran # (Auto) Neut # (Auto) Lymph # (Auto) [place] # (Auto) Eos # (Auto) Baso # (Auto) Anisocytosis Sodium 144 Potassium 3.7 Chloride 113 H Carbon Dioxide 24 Anion Gap 7.0 BUN 22 H Creatinine 0.80 Est Cr Clr Drug Dosing 89.5 Est GFR ( Amer) 100.6 Est GFR (Non-Af Amer) 86.8 BUN/Creatinine Ratio 26.8 H Glucose 112 H POC Glucose 143 H 130 H Calcium 9.8 Phosphorus 2.0 L Magnesium 1.8 07/22/18 15:54 WBC RBC Hgb Hct MCV MCH MCHC RDW Std Deviation RDW Coeff of Dc Plt Count MPV Immature Gran % (Auto) Neut % (Auto) Lymph % (Auto) [place] % (Auto) Eos % (Auto) Baso % (Auto) Immature Gran # (Auto) Neut # (Auto) Lymph # (Auto) [place] # (Auto) Eos # (Auto) Baso # (Auto) Anisocytosis Sodium Potassium Chloride Carbon Dioxide Anion Gap BUN Creatinine Est Cr Clr Drug Dosing Est GFR ( Amer) Est GFR (Non-Af Amer) BUN/Creatinine Ratio Glucose POC Glucose 138 H Calcium Phosphorus Magnesium (1) Pathological fracture of right hip Pathology associated with fracture: neoplastic disease
[2018-07-22] MEDS: ENOXAPARIN INJ 30 MG/0.3 ML SYR SQ SCH (20:05)
[2018-07-22] MEDS: ATORVASTATIN 40 MG TAB PO SCH (20:06)
[2018-07-22] MEDS: GABAPENTIN 300 MG CAP PO SCH (20:06)
[2018-07-22] MEDS: TAMSULOSIN HCL 0.4 MG CAP PO SCH (20:07)
[2018-07-22] MEDS: ACETAMINOPHEN 1,000 MG/100 ML VIAL IV PRN (20:42)
[2018-07-22] MEDS ORDERED: MENTHOL-ZINC OXIDE 360 APPLN/120 GM TUBE EXT PRN (22:00)
[2018-07-23 06:18] LABS: BUN Creatinine Ratio 20.7 (10-20); Calcium 9.4 mg/dl (8.5-10.1); Creatinine Clr Calc Pharmacy 80.4 ml/min; Est GFR (African American) 96.7; Est GFR (Non-African American) 83.4; Magnesium 1.8 mg/dl (1.8-2.4); Potassium 3.6 mmol/L (3.5-5.1)
[2018-07-23] MEDS: LEVOTHYROXINE SODIUM 50 MCG TABLET PO SCH (06:31)
[2018-07-23] MEDS: LACTULOSE SYRUP 30 GM/45 ML UDP PO SCH ×4 (06:31→21:08)
[2018-07-23] MEDS: METOPROLOL TARTRATE 25 MG TAB PO SCH ×3 (06:31→21:08)
[2018-07-23] MEDS: FINASTERIDE 5 MG TAB PO SCH (08:02)
[2018-07-23] MEDS: MEGESTROL ACETATE SUSP 400 MG/10 ML UDC PO SCH (08:02)
[2018-07-23] MEDS: PARoxetine HCl 10 MG TAB PO SCH (08:02)
[2018-07-23] MEDS: PANTOprazole 40 MG TAB PO SCH (08:02)
[2018-07-23] MEDS: INSULIN ASPART 100 UNITS/ML 3 ML PEN SC SCH ×4 (08:03→20:47)
[2018-07-23] MEDS: MAGNESIUM OXIDE 400 MG TAB PO SCH ×2 (08:03→20:40)
[2018-07-23] MEDS: IPRATROPIUM BROMIDE/ALBUTEROL respimat INH INH SCH ×4 (08:03→20:40)
[2018-07-23] MEDS: ALLOPURINOL 300 MG TAB PO SCH (08:03)
[2018-07-23] MEDS: CLOPIDOGREL BISULFATE 75 MG TAB PO SCH (08:03)
--- NOTE | 2018-07-23 12:16 | Hospitalist Progress Note ---
Date of Service July 23, 2018 Assessment & Plan (1) Pathological fracture of right hip: (2) Hypertension: (3) Gout: (4) Diabetes: (5) BPH (benign prostatic hyperplasia): (6) Asthma: (7) COPD (chronic obstructive pulmonary disease): (8) CVA (cerebral vascular accident): (9) Change in mental status: (10) S/P lobectomy of lung: (11) Right lower lobe lung mass: (12) Hypothyroid: (13) Neuropathy: -continue home gabapentin (14) DVT prophylaxis: 77-year-old male admitted on July 16, 2018 because of pelvic pain, has prophylaxis nail for pathological fracture of right hip on 07/18/2018 , from yesterday developed but lethargic and confused, was found ammonia level was high, lactulose was started metabolic encephalopathy postop with increased ammonia level, Totally resolved Ammonia level is less than 10, Continue lactulose 30 mg p.o. every 8 hour, Possible choking/aspiration, Chest x-ray was done; no new changes, per report: 1. Cardiomegaly without overt pulmonary edema. 2. Stable right pleural effusion with right basilar consolidation. Speech evaluation, and diet per speech, were not allow family member to feeding No antibiotic but will give oxygen if needed and nebulizer treatment if needed Pathological fracture of right hip: Postop day 5, CT of the pelvis demonstrated an acute pathologic fracture of the right lesser trochanter with associated lytic bone lesion, consistent w/metastatic disease. ortho consulted,prophylaxis nail done cardiology consulted for preop clearance , Stress nuclear imaging from 2017 shows normal LV systolic function consulted Dr. Orantes who patient was to establish with for oncology History of A. fib, Having A. fib with rapid ventricular response postop, amiodarone , coreg started, had converted to normal sinus rhythm, Cardiology input appreciated, has DC'ed coreg and transition to metoprolol for better rhythm effects. Per cardiology, poor candidate for anticoagulation, given bleeding risk Per countersinker balance screw hole. Patient has episodes of A. fib today again, which improved on his own History of hypertension , has been stable Gout, BPH, asthma, COPD, CVA, diabetic, continue current care, has restarted Plavix Right lower lobe lung mass: likely with metastasis to the pelvic, Palliative care input appreciated, Follow-up patient want to keep full code, and looking for residential rehab if needed, Lovenox 30 mg subcu daily for DVT prophylaxis , this was discussed with orthopedic surgeon have to reinsert Briggs catheter because of urinary retention after DC Briggs catheter , Continue Briggs Multiple comorbidities which include metastatic lung cancer disease, discussed with 2 son in bedside, they know poor prognosis Continue PT OT Patient want to go to [facility] in [facility], Per radiation oncology service, that if patient want to continue radiation treatment for lung cancer he need to follow-up with the radiation oncologist in [facility] MedSurg today Subjective Significant resolve of mental status changes,Currently is awake alert orientated conversational, recognized me, However has persistent dry cough seems night irritative cough, He was havingpossible choking after family feeding him Food yesterday Otherwise no complaint, No fever and chill, Denies chest pain palpitation Denies nausea vomiting abdominal pain diarrhea constipation Denied local weakness Briggs catheter in place Constitutional: + fatigue; no fever and no chills Physical Exam Vital Signs (Past 24 Hours): Last Vital Signs Temp 36.8 C 07/23/18 11:39 Pulse 79 07/23/18 11:39 Resp 18 07/23/18 11:39 BP 122/66 07/23/18 11:39 Pulse Ox 93 07/23/18 11:39 Physical Exam: General Appearance: Chronically ill looking, no more lethargic decreased hearing which is not new Eyes: normal inspection, PERRL, EOMI, sclerae normal ENT: normal ENT inspection, hearing grossly normal, pharynx normal Neck: supple, no adenopathy, thyroid normal, no JVD, no carotid bruits, trachea midline Respiratory/Chest: Decreased breathing sounds bilaterally, occasional wheezing, chest non-tender, Cardiovascular: regular rate, rhythm, no JVD, no murmur Abdomen: Briggs catheter reinserted, normal bowel sounds, non tender, soft, no organomegaly, Briggs catheter in place Extremities: normal inspection, 1+ pedal edema, no calf tenderness, normal capillary refill, pelvis stable, Neurologic/Psychiatric: overlock sleeve setter II-XII nml as tested, no motor/sensory deficits, alert, normal mood/affect, oriented x 3 Skin: normal color, warm/dry, no rash Lymphatic: no adenopathy Results & Data Laboratory Results Laboratory Results - last 24 hr 07/22/18 07/22/18 07/23/18 15:54 19:58 05:25 Sodium 146 H Potassium 3.6 Chloride 114 H Carbon Dioxide 26 Anion Gap 6.0 BUN 18 Creatinine 0.88 Est Cr Clr Drug Dosing 80.4 Est GFR ( Amer) 96.7 Est GFR (Non-Af Amer) 83.4 BUN/Creatinine Ratio 20.7 H Glucose 113 H POC Glucose 138 H 114 H Calcium 9.4 Magnesium 1.8 Ammonia 07/23/18 07/23/18 05:28 07:14 Sodium Potassium Chloride Carbon Dioxide Anion Gap BUN Creatinine Est Cr Clr Drug Dosing Est GFR ( Amer) Est GFR (Non-Af Amer) BUN/Creatinine Ratio Glucose POC Glucose 115 H Calcium Magnesium Ammonia < 10.0 L Diagnostic Findings Chest x-ray was done yesterday because of choking and cough no acute changes (1) Pathological fracture of right hip Pathology associated with fracture: neoplastic disease
[2018-07-23] MEDS: ACETAMINOPHEN 1,000 MG/100 ML VIAL IV PRN (15:36)
[2018-07-23] MEDS: ENOXAPARIN INJ 30 MG/0.3 ML SYR SQ SCH (19:21)
[2018-07-23] MEDS: TAMSULOSIN HCL 0.4 MG CAP PO SCH (20:39)
[2018-07-23] MEDS: GABAPENTIN 300 MG CAP PO SCH (20:39)
[2018-07-23] MEDS: ATORVASTATIN 40 MG TAB PO SCH (20:39)
[2018-07-24] MEDS: LEVOTHYROXINE SODIUM 50 MCG TABLET PO SCH (06:00)
[2018-07-24] MEDS: METOPROLOL TARTRATE 25 MG TAB PO SCH ×3 (06:00→21:29)
[2018-07-24] MEDS: LACTULOSE SYRUP 30 GM/45 ML UDP PO SCH ×3 (06:02→21:24)
[2018-07-24] MEDS: ACETAMINOPHEN 1,000 MG/100 ML VIAL IV PRN (07:47)
[2018-07-24] MEDS: IPRATROPIUM BROMIDE/ALBUTEROL respimat INH INH SCH ×4 (09:11→20:20)
[2018-07-24] MEDS: MEGESTROL ACETATE SUSP 400 MG/10 ML UDC PO SCH (09:13)
[2018-07-24] MEDS: PARoxetine HCl 10 MG TAB PO SCH (09:13)
[2018-07-24] MEDS: MAGNESIUM OXIDE 400 MG TAB PO SCH ×2 (09:13→20:22)
[2018-07-24] MEDS: ALLOPURINOL 300 MG TAB PO SCH (09:14)
[2018-07-24] MEDS: CLOPIDOGREL BISULFATE 75 MG TAB PO SCH (09:14)
[2018-07-24] MEDS: FINASTERIDE 5 MG TAB PO SCH (09:14)
[2018-07-24] MEDS: PANTOprazole 40 MG TAB PO SCH (09:14)
[2018-07-24] MEDS: INSULIN ASPART 100 UNITS/ML 3 ML PEN SC SCH ×4 (09:20→20:35)
[2018-07-24 09:26] LABS: Albumin Level 1.9 gm/dl (3.4-5.0); BUN Creatinine Ratio 18.3 (10-20); Calcium 9.8 mg/dl (8.5-10.1); Creatinine Clr Calc Pharmacy 66.1 ml/min; Est GFR (African American) 77.7; Est GFR (Non-African American) 67.1; Potassium 3.6 mmol/L (3.5-5.1)
[2018-07-24 09:29] LABS: Albumin Globulin Ratio 0.5 (0.9-2); Globulin 4.2 gm/dl (2.5-4.0); Total Protein 6.1 gm/dl (6.4-8.2)
--- NOTE | 2018-07-24 11:47 | Fluoroscopy Report ---
FL video swallow HISTORY: Cough. r/o aspiration TECHNIQUE: Video fluoroscopic evaluation of swallowing was performed in the AP and lateral projection s by the speech pathology staff. The patient is fed nectar-thick and thin liquid barium, a barium coa elver wafer, and barium pudding. FLUOROSCOPY TIME: 2.8 minutes. A cine loop submitted. COMPARISON STUDY: None. FINDINGS: There is normal hyoid excursion and epiglottic deflection. However, there are multiple epis odes of deep penetration to the level of the vocal cords with moderate residue throughout the hypopha rynx. There may be a single episode of trace aspiration. IMPRESSION: 1. Multiple episodes of deep penetration to the level of the vocal cords. There may be a single episo de of trace aspiration. 2. Please see the speech pathologist report for detailed findings and recommendations. Electronically signed by: Baldemar Temple M.D. 07/24/2018 11:46 AM
[2018-07-24] MEDS: CELECOXIB 100 MG CAP PO PRN (13:05)
--- NOTE | 2018-07-24 15:53 | Palliative Care Progress Note ---
Date of Service July 24, 2018 Assessment & Plan (1) Goals of care, counseling/discussion: Discuss goals of care with patient-he wishes to remain a full code. His goal is to go to rehab and regain his strength so he can undergo chemotherapy (2) Squamous cell lung cancer: Patient's goal is to improve his strength and performance status so he can undergo chemotherapy for his lung cancer (3) Hepatic encephalopathy: Due to history of cirrhosis-ammonia level elevated at 80-received lactulose, ammonia level now down to less than 10. Plan is to continue lactulose (4) COPD exacerbation: Improved-patient stable on room air Subjective Patient seen and examined, no family at bedside Patient reports that he is feeling somewhat better-awaiting placement for rehab Patient had altered mental status on 07/21 was found to have an elevated ammonia level at 80-patient was started on lactulose, ammonia level down to less than 10-mental status cleared. Review of Systems Patient denies fever, chills, chest pain, increased shortness of breath, or GI issues Physical Exam Vital Signs (Past 24 Hours): Last Vital Signs Temp 36.4 C L 07/24/18 15:14 Pulse 74 07/24/18 15:14 Resp 18 07/24/18 15:14 BP 115/75 07/24/18 15:14 Pulse Ox 98 07/24/18 15:14 Physical Exam: PE: Awake, alert, NAD HEENT: EOMI, normal hearing Respiratory: Unlabored, no rhonchi or wheezes CV: Rate controlled Abdomen: Soft, nontender Neuro: Alert and oriented Time Spent Attending Total time spent was 25 minutes assessing patient's progress as well as readdressing goals of care.
--- NOTE | 2018-07-24 17:55 | Hospitalist Progress Note ---
Date of Service July 24, 2018 Assessment & Plan (1) Pathological fracture of right hip: (2) Hypertension: (3) Gout: (4) Diabetes: (5) BPH (benign prostatic hyperplasia): (6) Asthma: (7) COPD (chronic obstructive pulmonary disease): (8) CVA (cerebral vascular accident): (9) Change in mental status: (10) S/P lobectomy of lung: (11) Right lower lobe lung mass: (12) Hypothyroid: (13) Neuropathy: (14) DVT prophylaxis: 77-year-old male admitted on July 16, 2018 because of pelvic pain, has prophylaxis nail for pathological fracture of right hip on 07/18/2018 , was developed but lethargic and confused, was found ammonia level was high, lactulose was started, lethargic was totally resolved metabolic encephalopathy postop with increased ammonia level, Totally resolved Ammonia level is in normal range Continue lactulose 30 mg p.o. every 8 hour, Possible choking/aspiration, Chest x-ray was done; no new changes, per report: 1. Cardiomegaly without overt pulmonary edema. 2. Stable right pleural effusion with right basilar consolidation. Speech evaluation, and diet per speech, were not allow family member to feeding No antibiotic but will give oxygen if needed and nebulizer treatment if needed, has been improving stable, oxygen level was 98% room air Pathological fracture of right hip: Postop day 6, CT of the pelvis demonstrated an acute pathologic fracture of the right lesser trochanter with associated lytic bone lesion, consistent w/metastatic disease. ortho consulted,prophylaxis nail done cardiology consulted for preop clearance , Stress nuclear imaging from 2017 shows normal LV systolic function consulted Dr. Orantes who patient was to establish with for oncology History of A. fib, has been continued doing well rate controlled Having A. fib with rapid ventricular response postop, amiodarone , coreg started, had converted to normal sinus rhythm, Cardiology input appreciated, has DC'ed coreg and transition to metoprolol for better rhythm effects. Per cardiology, poor candidate for anticoagulation, given bleeding risk Per revenue integrity analyst. History of hypertension , has been stable Gout, BPH, asthma, COPD, CVA, diabetic, continue current care Right lower lobe lung mass: likely with metastasis to the pelvic, Palliative care input appreciated, Follow-up patient want to keep full code, and looking for long-term rehab if needed, Lovenox 30 mg subcu daily for DVT prophylaxis , this was discussed with orthopedic surgeon urinary retention after DC Briggs catheter , continue watch, straight cath if needed Multiple comorbidities which include metastatic lung cancer disease, discussed with 2 son in bedside, they know poor prognosis Continue PT OT Patient want to go to [facility] in [facility], Per radiation oncology service, that if patient want to continue radiation treatment for lung cancer he need to follow-up with the radiation oncologist in [facility] Because related to discharge Subjective Briggs catheter was removed, however no urination yet, cough has been better, nonproductive, no wheezing Otherwise pain is better controlled, Still reports generalized weakness No fever and chill, Denies chest pain palpitation Denies nausea vomiting abdominal pain diarrhea constipation Denied local weakness Physical Exam Vital Signs (Past 24 Hours): Last Vital Signs Temp 36.4 C L 07/24/18 15:14 Pulse 74 07/24/18 15:14 Resp 18 07/24/18 15:14 BP 115/75 07/24/18 15:14 Pulse Ox 98 07/24/18 15:14 Physical Exam: General Appearance: Chronically ill looking, continue looks good, no lethargic, awake alert orientated conversational Eyes: normal inspection, PERRL, EOMI, sclerae normal ENT: normal ENT inspection, hearing grossly normal, pharynx normal Neck: supple, no adenopathy, thyroid normal, no JVD, no carotid bruits, trachea midline Respiratory/Chest: Decreased breathing sounds bilaterally, occasional wheezing, chest non-tender, Cardiovascular: regular rate, rhythm, no JVD, no murmur Abdomen: Briggs catheter reinserted, normal bowel sounds, non tender, soft, no organomegaly, Briggs catheter in place Extremities: normal inspection, trace pedal edema, no calf tenderness, normal capillary refill, pelvis stable, Neurologic/Psychiatric: yarn sorter II-XII nml as tested, no motor/sensory deficits, alert, normal mood/affect, oriented x 3 Skin: normal color, warm/dry, no rash Lymphatic: no adenopathy Results & Data Laboratory Results Laboratory Results - last 24 hr 07/23/18 07/24/18 07/24/18 20:37 08:13 08:55 Sodium 143 Potassium 3.6 Chloride 111 H Carbon Dioxide 25 Anion Gap 7.0 BUN 20 H Creatinine 1.07 Est Cr Clr Drug Dosing 66.1 Est GFR ( Amer) 77.7 Est GFR (Non-Af Amer) 67.1 BUN/Creatinine Ratio 18.3 Glucose 122 H POC Glucose 187 H 128 H Calcium 9.8 Total Bilirubin 1.0 AST 24 ALT 14 Alkaline Phosphatase 104 Ammonia Total Protein 6.1 L Albumin 1.9 L Globulin 4.2 H Albumin/Globulin Ratio 0.5 L 07/24/18 07/24/18 07/24/18 08:55 11:57 17:03 Sodium Potassium Chloride Carbon Dioxide Anion Gap BUN Creatinine Est Cr Clr Drug Dosing Est GFR ( Amer) Est GFR (Non-Af Amer) BUN/Creatinine Ratio Glucose POC Glucose 182 H 137 H Calcium Total Bilirubin AST ALT Alkaline Phosphatase Ammonia 16.3 Total Protein Albumin Globulin Albumin/Globulin Ratio (1) Pathological fracture of right hip Pathology associated with fracture: neoplastic disease
[2018-07-24] MEDS: ENOXAPARIN INJ 30 MG/0.3 ML SYR SQ SCH (20:20)
[2018-07-24] MEDS: TAMSULOSIN HCL 0.4 MG CAP PO SCH (20:22)
[2018-07-24] MEDS: GABAPENTIN 300 MG CAP PO SCH (20:22)
[2018-07-24] MEDS: ATORVASTATIN 40 MG TAB PO SCH (20:22)
[2018-07-24] MEDS ORDERED: ALBUMIN 25% 50 ML IV ONE (21:50)
[2018-07-24 22:42] VITALS: O2SAT 97
[2018-07-25] MEDS: LACTULOSE SYRUP 30 GM/45 ML UDP PO SCH ×2 (05:49→13:22)
[2018-07-25] MEDS: METOPROLOL TARTRATE 25 MG TAB PO SCH ×2 (05:51→13:26)
[2018-07-25] MEDS: LEVOTHYROXINE SODIUM 50 MCG TABLET PO SCH (05:51)
[2018-07-25] MEDS: ACETAMINOPHEN 1,000 MG/100 ML VIAL IV PRN (08:11)
[2018-07-25 08:20] VITALS: TEMP 97.3
[2018-07-25] MEDS: MAGNESIUM OXIDE 400 MG TAB PO SCH (08:49)
[2018-07-25] MEDS: IPRATROPIUM BROMIDE/ALBUTEROL respimat INH INH SCH ×2 (08:49→13:22)
[2018-07-25] MEDS: PARoxetine HCl 10 MG TAB PO SCH (08:50)
[2018-07-25] MEDS: MEGESTROL ACETATE SUSP 400 MG/10 ML UDC PO SCH (08:50)
[2018-07-25] MEDS: CLOPIDOGREL BISULFATE 75 MG TAB PO SCH (08:50)
[2018-07-25] MEDS: FINASTERIDE 5 MG TAB PO SCH (08:51)
[2018-07-25] MEDS: PANTOprazole 40 MG TAB PO SCH (08:51)
[2018-07-25] MEDS: ALLOPURINOL 300 MG TAB PO SCH (08:51)
[2018-07-25] MEDS: INSULIN ASPART 100 UNITS/ML 3 ML PEN SC SCH ×2 (09:09→13:18)
[2018-07-25] MEDS: CELECOXIB 100 MG CAP PO PRN (13:22)
[2018-07-25 14:22] VITALS: BP 81/38; PULSE 74
--- NOTE | 2018-07-25 18:08 | Discharge Summary ---
Date of Service July 25, 2018 Admission HPI Per Admitting Provider Mr. Bonner is a 77 year old male with a history of lung cancer s/p lobectomy, COPD, liver cirrhosis, prior CVA, COPD, DM2, hypertension and BPH who was transferred to [facility] from [facility] for a pathologic fracture of the right femur. History is limited due to the fact that the patient is very drowsy. Per review of records from [place], the patient presented to the ED due to right sided hip pain without known injury. X-ray of the right knee did not show any acute osseus abnormalities, however CT of the pelvis demonstrated an acute pathologic fracture of the right lesser trochanter with associated lytic bone lesion, consistent w/metastatic disease. PMHx: asthma, COPD, DM2, GERD, liver cirrhosis, HTN, ischemic cardiomyopathy, prior CVA. PSHx: colon resection, cholecytestctomy, hernia repair, right TKA, prior shoulder surgery, lobectomy. The patient was given 2 1mg IM dilaudid doses in the ED, the most recent dose was at 7PM. Principal Diagnosis no Discharge Data Allergies Allergy/AdvReac Type Severity Reaction Status Date / Time meperidine Allergy Severe ANAPHYLAXIS Verified 07/18/18 13:34 Iodinated Contrast- Oral and Allergy Intermediate HIVES Verified 07/18/18 13:34 IV Dye oxycodone Allergy Intermediate SHORTNESS Verified 07/18/18 13:34 OF BREATH dobutamine AdvReac Unknown abd pain Verified 07/18/18 13:34 perflutren AdvReac Unknown abd pain Verified 07/18/18 13:34 Consultations 07/16/18 23:13 Consult Orthopedic Surgery Routine 07/17/18 02:31 Consult Cardiology Routine 07/17/18 11:11 Consult Oncology Routine 07/17/18 15:11 Consult Radiation Oncology Routine 07/18/18 16:10 Consult Case Management - Discharge Planning Routine 07/19/18 11:45 Consult Palliative Care Routine Procedures Performed Operation Date: 07/18/18 08:20 Actual Procedures p Intramedullary Nailing Right Femur(Right) - Connor Torrez, DO Ordered Studies 07/17/18 15:11 MR femur RT wo/w con Routine 07/18/18 13:00 FL fluoroscopy <1hr Routine FL hip RT 2-3V Routine 07/24/18 10:30 FL video swallow Routine Hospital Course (1) Pathological fracture of right hip: (2) Hypertension: (3) Gout: (4) Diabetes: (5) BPH (benign prostatic hyperplasia): (6) Asthma: (7) COPD (chronic obstructive pulmonary disease): (8) CVA (cerebral vascular accident): (9) Change in mental status: (10) S/P lobectomy of lung: (11) Right lower lobe lung mass: (12) Hypothyroid: (13) Neuropathy: -continue home gabapentin (14) DVT prophylaxis: 77-year-old male admitted on July 16, 2018 because of pelvic pain, has prophylaxis nail for pathological fracture of right hip on 07/18/2018 , was developed but lethargic and confused, was found elevated ammonia level , lactulose was started, lethargic has been totally resolved continue doing well metabolic encephalopathy postop with increased ammonia level, Totally resolved Ammonia level is in normal range Need to continue lactulose 30 mg p.o. every 8 hour, Possible choking/aspiration, Chest x-ray was done; no new changes, per report: 1. Cardiomegaly without overt pulmonary edema. 2. Stable right pleural effusion with right basilar consolidation. Speech evaluation, and diet per speech, were not allow family member to feeding No antibiotic and watch, has been improving stable, oxygen level was 98% room air Pathological fracture of right hip: Postop day 7, CT of the pelvis demonstrated an acute pathologic fracture of the right lesser trochanter with associated lytic bone lesion, consistent w/metastatic disease. ortho consulted,prophylaxis nail done cardiology consulted for preop clearance , Stress nuclear imaging from 2017 shows normal LV systolic function consulted Dr. Orantes who patient was to establish with for oncology DVT prophylaxis is on Lovenox 30 mg daily History of A. fib, has been continued doing well rate controlled Having A. fib with rapid ventricular response postop, amiodarone , coreg started, had converted to normal sinus rhythm, Cardiology input appreciated, has DC'ed coreg and transition to metoprolol for better rhythm effects. Per cardiology, poor candidate for anticoagulation, given bleeding risk Per php website developer. History of hypertension , has been stable Gout, BPH, asthma, COPD, CVA, diabetic, continue current care Right lower lobe lung mass: likely with metastasis from lung cancer and to the pelvic, urinary retention after DC Briggs catheter , continue watch, straight cath if needed Multiple comorbidities which include metastatic lung cancer disease, discussed with 2 son in bedside, they know poor prognosis Continue PT OT Patient want to go to [facility] in [facility], Per radiation oncology service, that if patient want to continue radiation treatment for lung cancer he need to follow-up with the radiation oncologist in [facility] However if patient not going to [facility], patient need to follow-up with radiation oncologist from this hospital, has ordered nursing staff in nursing [facility] to communicate with radiation oncology in this hospital if needed Palliative care input appreciated, patient want to keep full code, Patient discharged and relative to stable condition Subjective upon discharge Briggs catheter was removed, able to urination, cough has been better, nonproductive, no wheezing Otherwise pain is better controlled, Still reports generalized weakness No fever and chill, Denies chest pain palpitation Denies nausea vomiting abdominal pain diarrhea constipation Denied local weakness Physical Exam at discharge Vital signs stable, afebrile, General Appearance: Chronically ill looking, continue looks good, no lethargic, awake alert orientated conversational Eyes: normal inspection, PERRL, EOMI, sclerae normal ENT: normal ENT inspection, hearing grossly normal, pharynx normal Neck: supple, no adenopathy, thyroid normal, no JVD, no carotid bruits, trachea midline Respiratory/Chest: Decreased breathing sounds bilaterally, occasional wheezing, chest non-tender, Cardiovascular: regular rate, rhythm, no JVD, no murmur Abdomen: normal bowel sounds, non tender, soft, no organomegaly, Briggs catheter in place Extremities: normal inspection, trace pedal edema, no calf tenderness, normal capillary refill, pelvis stable, Neurologic/Psychiatric: campaign specialist II-XII nml as tested, no motor/sensory deficits, alert, normal mood/affect, oriented x 3 Skin: normal color, warm/dry, no rash Lymphatic: no adenopathy Results & Data at discharge Laboratory Results - last 24 hr 07/24/18 07/25/18 07/25/18 20:15 08:14 12:28 POC Glucose 166 H 110 H 189 H Total Time Total Time Spent Total Time Spent (In Minutes): 35 Discharge Plan Discharge Items Patient Disposition: [facility] Reason For Visit: HIP FRACTURE/LUNG CANCER Discharge Diagnosis: Pathological fracture of right hip: Condition: Fair Discharge Goals: Decrease discomfort, Diagnostic testing, Improve disease control, Improve function and Increase independence Activity: As commented below Weightbearing: Right partial Weightbearing Comment: with walker or crutches Non-emergency contact: Primary Care Provider and Oncologist Call non-emergency contact if: you have any medication questions Follow-up/Referrals: Domo Alanis [Primary Care Provider] - Diet: Heart Healthy Add Provider Instructions: post op of Pathological fracture of right hip: continue -PT/OT-PWB RLE to be Partial weight bearing to RLE. F/u with Dr. Torrez 10-14 days post operatively. [facility] DISCHARGE INSTRUCTIONS: HIP FRACTURE SELF CARE INSTRUCTIONS: A. You are to ambulate with a walker or crutches for approximately 6 weeks. B. You are PARTIAL WEIGHT BEARING on your operative lower extremity for at least 6 weeks. C. Wear low heeled shoes with non-slip soles D. Be sure that your floors are free of things that could trip you throw rugs, electrical cords, and small objects. Avoid wet and waxed floors, especially with crutches/walker/cane. E. Try to walk several times a day with rest periods between. F. You may shower 48 hours after surgery and get the incision area wet, but DO NOT soak or submerge incision area in water. (No baths, swimming pools, hot tubs) G. Change dressing daily. If incision is leaking through the dressing, please call the office . H. Do NOT apply soap or any ointment/lotions directly over incision. I. You may use ice as needed to operative site. SPECIAL CARE INSTRUCTIONS: VERY IMPORTANT TO READ AND REVIEW A. You may be at risk for phlebitis or blood clots. a. Wear surgical stockings (AGATA hose) for 2 weeks after surgery to improve circulation and reduce swelling. b. Take LOVENOX 30mg SQ daily for 4 weeks or as directed. This is your blood thinner. c. If you are on Coumadin- you will have daily/weekly blood work to monitor your levels. This will be done by either your family physician/php website developer (if you are on Coumadin chronically) versus your orthopedic surgeon. Expect a phone call the day of or the day after your blood work is drawn to adjust your dose accordingly. B. There are a few signs you need to watch for after you are home. Call [facility] at [phone] if you experience any of the following: a. If you have a temperature of 101 degrees or higher. b. Sudden increase in pain in your hip not relieved by rest or pain medication. c. Any fluid or drainage from the incision; redness of the incision. d. Shortness of breath or chest pain. C. Call your physician if: a. Temperature is greater than 101 degrees (F). b. Pain is not relieved by prescribed pain medications. c. Increase drainage or redness from incision. d. Unanswered questions or concerns. D. Pain Medication: a. You will be prescribed pain medication upon discharge that should last till your first post-operative appointment. b. If you experience nausea and/or skin rash, discontinue this medication and contact our office for an alternative medicatio n. c. Caution- narcotic pain medication can cause constipation. FOLLOW UP VISIT: Please call [facility] at [phone] to schedule a follow up appointment with Dr Torrez 10-14 days from the date of your surgery date. you was having metabolic encephalopathy postop with increased ammonia level, need to Continue lactulose 30 mg p.o. every 8 hour, Possible choking/aspiration, diet per speech, will not allow family member to feeding, aspiration precaution you need to follow up with Dr. Orantes Lovenox 30 mg subcu daily for DVT prophylaxis, need to contact orthopedic surgeon about when to stop RN in [facility] need to contact depart of radiation oncologist to arrange for the treatment for lung cancer you need to follow up with your primary care physician in 1 week, - take medication as instructed, never overdose or any misuse, or take with alcohol, because misuse of medicine may cause organ damage or , call me, or your primary care physician if have questions of discharge medicaitons. - call your primary care physician, or go to local emergency room if has any fever/chill, chest pain, shortness of breathing, nausea/vomiting/abdominal pain, facial droop/slurry speech/local weakness, or if has any questions. - fall precaution - diet as instructed - you need to follow up with your subspecialist, such as Dr. Orantes, radiation onco, and ortho Prescriptions: New megestrol 400 mg/10 mL (40 mg/mL) Suspension 10 ml PO QAM 14 Days Qty: 140 RF: 0 magnesium oxide 400 mg (241.3 mg magnesium) Tablet 400 mg PO BID 7 Days Qty: 14 RF: 0 celecoxib [Celebrex] 100 mg Capsule 100 mg PO BID PRN (Reason: pain) 10 Days Qty: 20 RF: 0 enoxaparin [Lovenox] 30 mg/0.3 mL Syringe 30 mg subcut Q24H 28 Days Qty: 8.4 RF: 0 metoprolol tartrate 25 mg Tablet 25 mg PO Q8 30 Days Qty: 90 RF: 0 Calmoseptine 0.44-20.6 % Ointment 1 applic EXT UD PRN (Reason: skin) 30 Days Qty: 1 RF: 0 lactulose 20 gram/30 mL Solution 30 ml PO Q8 30 Days Qty: 2700 RF: 0 Continued atorvastatin 40 mg Tablet 40 mg PO PM RF: 0 paroxetine HCl 10 mg Tablet 10 mg PO DAILY RF: 0 albuterol sulfate 2.5 mg /3 mL (0.083 %) Solution For Nebulization 2.5 mg INHALATION QID PRN (Reason: Shortness Of Breath) RF: 0 cyanocobalamin (vitamin B-12) 1,000 mcg Tablet 1,000 mcg PO DAILY RF: 0 clopidogrel 75 mg tablet 75 mg PO DAILY RF: 0 tamsulosin 0.4 mg Capsule 0.4 mg PO PM RF: 0 levothyroxine 50 mcg tablet 50 mcg PO DAILY RF: 0 pantoprazole 40 mg Tablet,Delayed Release (Dr/Ec) 40 mg PO DAILY RF: 0 gabapentin 300 mg Capsule 300 mg PO PM RF: 0 budesonide 0.25 mg/2 mL Suspension For Nebulization 0.25 mg INHALATION BID PRN (Reason: Shortness Of Breath) RF: 0 allopurinol 300 mg Tablet 300 mg PO DAILY RF: 0 albuterol sulfate [ProAir HFA] 90 mcg/actuation Hfa Aerosol Inhaler 2 puff INHALATION Q6H PRN (Reason: Shortness Of Breath) RF: 0 finasteride 5 mg Tablet 5 mg PO DAILY RF: 0 insulin lispro [Humalog KwikPen Insulin] 100 unit/mL Insulin Pen 4 unit SUBCUT AC RF: 0 formoterol fumarate [Perforomist] 20 mcg/2 mL Solution For Nebulization 1 dose Inhalation BID PRN (Reason: Shortness Of Breath) RF: 0 cholecalciferol (vitamin D3) [Vitamin D3] 2,000 unit Capsule 2,000 unit PO DAILY RF: 0 ipratropium-albuterol [Combivent Respimat] 20-100 mcg/actuation Mist 1 puff INHALATION QID RF: 0 insulin glargine U-300 conc [Toujeo SoloStar U-300 Insulin] 300 unit/mL (1.5 mL) Insulin Pen 20 unit SUBCUT PM RF: 0 magnesium oxide 400 mg magnesium Tablet 400 mg PO DAILY RF: 0 prednisone 20 mg Tablet 40 mg PO BID Qty: 2 RF: 0 Discontinued carvedilol 3.125 mg tablet 3.125 mg PO BID RF: 0 amoxicillin-pot clavulanate 875-125 mg Tablet 1 tab PO BIDM Qty: 6 RF: 0 Stand-Alone Forms: [facility] Discharge Orders: Discharge Order (Routine); Ordered 07/25/18 Ordered By: Mayito Devries Skilled Items Patient informed of condition?: Yes DNR: No Discharge Level of Care: Skilled Communicable Disease: No Discharge Prognosis: Deteriorating Admission Data Admit Date/Time: 07/16/18 21:45 Attending Provider: Mayito Devries Admit Provider: Eileen Zambrano Primary Care Provider: Domo Alanis Other Providers: John Ryan ; Aubrie Roa ; Alden Sutton ; Augustin Orantes V ; Abdulaziz Morel ; Sherwin Bradford ; Enrique Mccracken ; Yessica Guadalupe Thomas J ; Maryellen Olivares ; Reid Ramon ; Yayo Wynne ; Jakob Hunter ; Alex Fan Jr ; Yayo Quintanilla ; Prasad Arango. ; Jakob Valera ; Domo Bradshaw ; Doc Kendrick ; Josh Coburn ; Gilmer Ruiz ; Chon Calhoun ; Brian Beltran ; Mingo Rincon ; Maryellen Loja ; Richard Matta ; Duncan Guy ; Toby Witt ; Mukul Medellin ; Toby Luna ; Augustin Hicks ; Shane Garcia ; Connor Mackey ; Domo Slaughter ; Yayo Parker ; Stephanie Grace ; Najma Malik Service: Medical Other Interventions: Discharge Summary Assessment (RN) Last Done: 07/25/18 14:28 DC Date/Time DO NOT enter until pt leaves facility: 07/25/18 14:43
== END 2018-07-25 14:43 | DRG 480 ==
LOC: SUATTDRO 21:45 → 3W 21:45 → 2S 07-18 16:11 → 3N 07-23 13:23